=== PATIENT | male | born 1945 | race Two or more races ===

== ENCOUNTER 2019-10-30 08:32 | Inpatient (IN) | payer MEDICARE, MEDICAID ==
[2019-10-30] VITALS (16 sets, daily range): BP systolic 81–126; BP diastolic 58–82
[~2019-10-30] VITALS: Ht 182.9 cm; Wt 73.5 kg
[2019-10-30] MEDS ORDERED: Vancomycin 1.5 GM in NS 275 ML IVPB ONE (08:45)
[2019-10-30] MEDS ORDERED: Cefepime HCl 2 GM in NS 110 ML IV ONE (08:45)
[2019-10-30] MEDS ORDERED: ATIVAN1 MG ORAL (08:50)
[2019-10-30] MEDS ORDERED: DUONEB 0.5-3(2.53 ML HHN (08:50)
[2019-10-30] MEDS ORDERED: MIDODRINE HCL10 MG PEG (08:50)
[2019-10-30] MEDS ORDERED: QUETIAPINE FUM100 MG PEG (08:50)
[2019-10-30] MEDS ORDERED: AMIODARONE HCL400 M1 PEG (08:50)
[2019-10-30] MEDS ORDERED: THEOPHYLLI80 MG/151 PEG (08:50)
[2019-10-30] MEDS ORDERED: HUMALOG100 UNIT/4 SUBQ (08:50)
[2019-10-30] MEDS ORDERED: ATORVASTATIN CA20 MG PEG (08:50)
[2019-10-30] MEDS ORDERED: LEVOTHYROXINE75 MCG PEG (08:50)
[2019-10-30] MEDS ORDERED: ELIQUIS5 MG PO (08:50)
[2019-10-30] MEDS ORDERED: VITAMIN B-1100 MG PEG (08:51)
[2019-10-30] MEDS ORDERED: Lidocaine 1% MPF 10mg/ml 5ml ONE (09:31)
[2019-10-30] MEDS ORDERED: Lidocaine 1% MPF 10mg/ml 5ml IM ONE (09:45)
[2019-10-30 09:49] LABS: HEMATOCRIT 33.8 % (42.0-52.0); HEMOGLOBIN 10.8 G/DL (14.2-18.0); MEAN CORPUSCULAR VOLUME 86 FL (80-99); PLATELET COUNT 449 K/UL (150-450); RED BLOOD COUNT 3.91 M/UL (4.70-6.10); RED CELL DISTRIBUTION WIDTH 16.8 % (11.6-14.8)
[2019-10-30 09:53] LABS: ANION GAP 13 mmol/L (5-15); BLOOD UREA NITROGEN 25 mg/dL (7-18); CALCIUM 9.3 MG/DL (8.5-10.1); CARBON DIOXIDE 22 MMOL/L (21-32); CHLORIDE 103 MMOL/L (98-107); CREATININE 1.4 MG/DL (0.55-1.30); POTASSIUM 5.1 MMOL/L (3.5-5.1); SODIUM 137 MMOL/L (136-145)
--- NOTE | 2019-10-30 09:59 | Emergency Room Report ---
History of Present Illness General Chief Complaint: Dyspnea/Respdistress Source: EMS Present Illness HPI Patient is a 73-year-old male brought in by EMS after increased difficulty with respirations and possible hemoptysis. Patient previous history of head and neck cancer. He was noted to be full code per EMS. Patient had been having increased work of breathing as well as respiratory distress. Recently treated for strep pneumo pneumonia. He was noted to be markedly tachypneic and have increased work of breathing by paramedics and started on supplemental oxygen via nonrebreather. Patient was sent in from [facility]. Primary doctors Dr. Tyrese Hoff. History is limited by patient's mental status. Allergies: Coded Allergies: No Known Allergies (Unverified , 10/30/19) COVID-19 Screening Contact w/high risk pt: No Recent Travel to affected area: No Experienced COVID-19 symptoms?: Yes COVID-19 symptoms experienced: Shortness of Breath Patient History Past Medical History: see triage record Reviewed Nursing Documentation: PMH: Agreed; PSxH: Agreed Review of Systems All Other Systems: negative except mentioned in HPI Physical Exam Vital Signs Date Time Temp Pulse Resp B/P (MAP) Pulse Ox O2 Delivery O2 Flow Rate FiO2 10/30/19 08:24 96.6 140 30 92/53 (66 74 Non-Rebreather 15.0 Sp02 EP Interpretation: reviewed, normal General Appearance: normal inspection, lethargic, Chronically Ill Head: atraumatic ENT: normal ENT inspection, hearing grossly normal, normal voice Neck: normal inspection, supple, no bony tend, limited range of motion Respiratory: normal inspection, no retraction, respiratory distress, rhonchi Cardiovascular #1: no edema, tachycardia Gastrointestinal: normal inspection, normal bowel sounds, non tender, soft, no guarding, no hernia, other - gtube present Genitourinary: no CVA tenderness Musculoskeletal: normal inspection, back normal, normal range of motion Neurologic: motor weakness, responsive, speech normal, normal inspection Psychiatric: normal inspection, judgement/insight normal, mood/affect normal Procedures Critical Care Time Critical Care Time Patient had a critical medical condition which untreated could potentially result in life or limb threatening injury. Total critical care time excluding procedures approximately 45 minutes. Central Line Central Line : Consent: Emergent Central Line Lumen: triple Maximal Sterile Barrier Tech: yes cap, yes mask, yes sterile gown, yes sterile gloves, yes large sterile sheet, yes hand hygiene, yes chlorhexidine prep Central Line Postion: femoral (R) Anesthesia: Lidocaine Complications: Hematoma Central Line Post Position: sutured, good blood return Attempts: Other - 2 Patient Tolerated: Well Intubation Intubation : Time of Intubation: 09:15 Intubation Method: orotracheal Tube Size (cm): 7.5 Medications: Etomidate, Ketamine Breath Sounds after Intubation: equal Intubation Complications: no complications Post Intubation Xray: Yes Attempts: One Patient Tolerated: Well Complications: None Medical Decision Making Diagnostic Impression: Primary Impression: Septic shock Additional Impressions: Pneumonia Suspected 2019-nCoV infection Anticoagulant effect ER Course Patient presented for shortness of breath. Differential diagnosis include was not limited to pneumonia, pulmonary embolism, congestive heart failure, coronavirus, influenza among others. Because of complexity of patient's case laboratory tests and imaging studies were ordered. Patient's history suggest that he has some underlying history of cancer. He was noted to be full code. Patient had recent strep pneumo pneumonia. Laboratory testing did show positive for influenza. Patient started on IV fluids due to hypotension. He was intubated for respiratory distress. Full precautions were initiated due to current pandemic coronavirus. Patient was intubated with a glide scope and tolerated intubation well. Central venous catheter was placed emergently due to hypotension. Patient was noted to have initial right femoral arterial stick despite ultrasound guidance and direct pressure was held. Subsequently was able to place a right femoral central venous catheter in the femoral vein. Post procedure x-ray read by radiology showed adequate endotracheal tube placement as well as Port-A-Cath and bilateral interstitial infiltrates. Dr. Danny Stark was contacted for inpatient management Laboratory Tests Test 10/30/19 09:20 White Blood Count 41.8 K/UL (4.8-10.8) *H Red Blood Count 3.91 M/UL (4.70-6.10) L Hemoglobin 10.8 G/DL (14.2-18.0) L Hematocrit 33.8 % (42.0-52.0) L Mean Corpuscular Volume 86 FL (80-99) Mean Corpuscular Hemoglobin 27.5 PG (27.0-31.0) Mean Corpuscular Hemoglobin Concent 31.8 G/DL (32.0-36.0) L Red Cell Distribution Width 16.8 % (11.6-14.8) H Platelet Count 449 K/UL (150-450) Mean Platelet Volume 5.1 FL (6.5-10.1) L Neutrophils (%) (Auto) % (45.0-75.0) Lymphocytes (%) (Auto) % (20.0-45.0) Monocytes (%) (Auto) % (1.0-10.0) Eosinophils (%) (Auto) % (0.0-3.0) Basophils (%) (Auto) % (0.0-2.0) Neutrophils % (Manual) Pending Lymphocytes % (Manual) Pending Platelet Estimate Pending Platelet Morphology Pending Sodium Level 137 MMOL/L (136-145) Potassium Level 5.1 MMOL/L (3.5-5.1) Chloride Level 103 MMOL/L (98-107) Carbon Dioxide Level 22 MMOL/L (21-32) Anion Gap 13 mmol/L (5-15) Blood Urea Nitrogen 25 mg/dL (7-18) H Creatinine 1.4 MG/DL (0.55-1.30) H Estimated Glomerular Filtration Rate 49.7 mL/min (>60) Glucose Level 114 MG/DL (74-106) H Lactic Acid Level 4.50 mmol/L (0.4-2.0) H Calcium Level 9.3 MG/DL (8.5-10.1) Total Bilirubin Pending Aspartate Amino Transferase (AST) Pending Alanine Aminotransferase (ALT) Pending Alkaline Phosphatase Pending Total Creatine Kinase Pending Creatine Kinase MB Pending Troponin I 0.000 ng/mL (0.000-0.056) Pro-B-Type Natriuretic Peptide Pending Total Protein Pending Albumin Pending Globulin Pending Microbiology Date/Time Source Procedure Growth Status 10/30/19 08:45 Nasal Nares - Final Complete 10/30/19 08:45 Nasal Nares - Final Complete EKG Diagnostic Results Rate: tachycardiac Rhythm: NSR ST Segments: no acute changes Rhythm Strip Diag. Results EP Interpretation: yes Rhythm: no PVC's, no ectopy Last Vital Signs Date Time Temp Pulse Resp B/P (MAP) Pulse Ox O2 Delivery O2 Flow Rate FiO2 10/30/19 08:24 96.6 140 30 92/53 (66) 74 Non-Rebreather 15.0 Status: unchanged Disposition: ADMITTED INPATIENT Condition: Critical Referrals: NON PHYSICIAN (PCP) Cesar Rodriguez MD Oct 30, 2019 09:59
[2019-10-30 10:08] LABS: WHITE BLOOD COUNT 41.8 K/UL (4.8-10.8)
[2019-10-30 10:17] LABS: ALANINE AMINOTRANSFERASE 165 U/L (12-78); ALBUMIN 2.9 G/DL (3.4-5.0); ALBUMIN/GLOBULIN RATIO 0.6 (1.0-2.7); ALKALINE PHOSPHATASE 223 U/L (46-116); ASPARTATE AMINO TRANSFERASE 195 U/L (15-37); BILIRUBIN,TOTAL 0.4 MG/DL (0.2-1.0); CKMB 1.4 NG/ML (0.0-3.6); CREATINE KINASE 174 U/L (26-308)
--- NOTE | 2019-10-30 10:59 | NUR ---
ER Nurse Note: Pt brought in by ambulance from [facility] c/o increasing shortness of breath since AM. Per EMS, pt is 74% O2 at 15 L via non rebreather. Hx of stage 4 lung cancer. Pt arrived with G-tube. LAFD established LT IV; patent.
--- NOTE | 2019-10-30 11:05 | NUR ---
ER Nurse Note: Per ERMD, pt to be intubated. 0914- etomidate 20 given 15- intubated 7.5 cm at lip. Rt at bed side; vent setting AC 20, VT 400, Peep 5 0918- Chet 50 given 0935- central line placed; triple luman RT femoral. infusing 250cc TKO NS and Flagyl VS post intubation - 130HR, 86% O2 vent, 28RR, 120/81, 99.6F oral temp. Per RT; Peep increased to 10 d/t low O2.
[2019-10-30] MEDS ORDERED: Albuterol/Ipratropium 3ml neb HHN PRN (11:15)
[2019-10-30] MEDS ORDERED: Miralax 17gm pkt ORAL PRN (11:15)
[2019-10-30] MEDS ORDERED: Morphine Sulfate 4mg/ml Inj (IV USE ONLY) IVP PRN (11:15)
--- NOTE | 2019-10-30 11:15 | Diagnostic Imaging Report ---
Indication: Shortness of breath, status post intubation Technique: One view of the chest Comparison: None Findings: There is a right chest dual-lumen port catheter in place. There is an endotracheal tube in place, tip in good position projecting 3 cm above the annemarie. There is bilateral mostly nodular mostly interstitial disease. There may be some focal patchy airspace consolidations versus large nodules in the bilateral perihilar regions. The pleural spaces are clear. The heart size is normal. Impression: Satisfactory endotracheal intubation Bilateral mostly nodular mostly interstitial disease, as described. This could represent interstitial pneumonia or edema, among many other possibilities. However, given the nodular appearance and the presence of an infusion catheter the possibility of nodular metastatic disease should also be considered. Findings previously discussed by phone with Dr. Rodriguez in the emergency room
[2019-10-30 11:30] LABS: APPEARANCE,URINE CLOUDY; BILIRUBIN, URINE NEGATIVE (NEGATIVE); GLUCOSE, URINE (UA) NEGATIVE (NEGATIVE); KETONES,URINE 1+ (NEGATIVE); LEUKOCYTE ESTERASE ,URINE 1+ (NEGATIVE); NITRITE,URINE NEGATIVE (NEGATIVE); PH,URINE 5 (4.5-8.0); PROTEIN,URINE 3+ (NEGATIVE); UROBILINOGEN,URINE NORMAL MG/DL (0.0-1.0)
[2019-10-30 11:31] LABS: COLOR,URINE YELLOW
--- NOTE | 2019-10-30 11:40 | NUR ---
ER Nurse Note: Latic reflux drawn and sent to lab; awaiting results. All orders completed per ERMD orders. Covid, flu, MRSA, CRE swabs taken. Pt is + flu. Notifed ERMD of WBC and Lactic acid. Pt non verbal, slugglish bilateral pupil reaction. BP 91/66; ERMD ordered Levo and started at 1113 at 2mcg/min via central line. Pt is infusing NS and vanco. SKin intact; noted healing wound and scan on RT lower leg. Patel cath inserted, urine collected and sent. Isolation precautions continued. All safety measures met; will continue to montior.
--- NOTE | 2019-10-30 12:26 | NUR ---
ER Nurse Note: Pt remains at baseline; O2 at 88%. Pt continuing Levo with BP at 106/70. Pt calm, awake. All safety measures met; will continue to montior.
--- NOTE | 2019-10-30 13:38 | NUR ---
ER Nurse Note: Pt remains at baseline. Levo at 2mcg/min infusing via central line and NS at 250 cc/ hr. Pt toleraing vent; O2% 86-90%; ERMD aware. 30cc urine output via foely cath. All safety measures met; will continue to montior.
--- NOTE | 2019-10-30 13:40 | NUR ---
RESPIRATORY NOTE: Per Dr. Kaiser, keep current vent settings AC 20 400 100% PEEP +100. VENKAT Byrnes.
--- NOTE | 2019-10-30 13:51 | Consultation ---
History of Present Illness General Date patient seen: Oct 30, 2019 Chief Complaint: Dyspnea/Respdistress Present Illness HPI 73-year-old male with hx of Afib, hypothyroid, COPD, history of head and neck cancer, alf resident brought in by EMS with CC of difficulty with respirations and possible hemoptysis. Patient had been having increased work of breathing as well as respiratory distress. Recently treated for strep pneumo pneumonia. He was noted to be markedly tachypneic and have increased work of breathing by paramedics and started on supplemental oxygen via nonrebreather. He was in respiratory failure on arrival and was intubated and put on pressors because of hypotension. Allergies: Coded Allergies: No Known Allergies (Unverified , 10/30/19) Medication History Scheduled Apixaban (Eliquis), 5 MG PO Q12HR, (Reported) Atorvastatin Calcium* (Atorvastatin Calcium*), 10 MG PEG BEDTIME, (Reported) Levothyroxine Sodium* (Levothyroxine Sodium*), 50 MCG PEG DAILY, (Reported) Lorazepam* (Ativan*), 1 MG ORAL Q6HR, (Reported) Midodrine* (Proamatine*), 10 MG PEG THREE TIMES A DAY, (Reported) Quetiapine Fumarate* (Seroquel*), 100 MG PEG Q12HR, (Reported) Thiamine Hcl* (Vitamin B-1*), 100 MG PEG DAILY, (Reported) Scheduled PRN Amiodarone Hcl* (Amiodarone Hcl*), 200 MG PEG ONCE PRN for A-fib, (Reported) Miscellaneous Medications Insulin Lispro (Humalog), 0 SUBQ, (Reported) Ipratropium/Albuterol Sulfate (DuoNeb 0.5-3(2.5)mg/3ml), 3 ML HHN, (Reported) Theophylline Anhydrous (Theophylline), 200 MG PEG, (Reported) Patient History Healthcare decision maker Resuscitation status Advanced Directive on File Past Medical/Surgical History Past Medical/Surgical History: (1) COPD (chronic obstructive pulmonary disease) (2) Psychosis (3) Hypothyroidism (4) Atrial fibrillation Review of Systems All Other Systems: negative except mentioned in HPI Physical Exam General Appearance: WD/WN Lines, tubes and drains: peripheral HEENT: normocephalic, atraumatic Neck: non-tender, normal alignment Respiratory/Chest: chest wall non-tender, rhonchi - left, rhonchi - right Cardiovascular/Chest: normal peripheral pulses, normal rate Abdomen: normal bowel sounds, non tender Genitourinary/Rectal: normal genital exam Extremities: normal range of motion Skin Exam: normal pigmentation 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 grossly normal Last 24 Hour Vital Signs Date Time Temp Pulse Resp B/P (MAP) Pulse Ox O2 Delivery O2 Flow Rate FiO2 10/30/19 13:36 97.7 120 22 108/73 90 Mechanical Ventilator 15.0 100 10/30/19 13:15 120 20 100 10/30/19 12:25 124 20 106/70 88 Mechanical Ventilator 10/30/19 11:52 99.6 129 28 91/66 86 Mechanical Ventilator 15.0 100 10/30/19 11:13 10/30/19 10:45 128 21 100 10/30/19 10:30 96.6 129 20 121/80 98 Mechanical Ventilator 15.0 100 10/30/19 10:30 129 20 Mechanical Ventilator 15.0 100 10/30/19 09:16 129 20 100 10/30/19 09:16 129 20 98 Mechanical Ventilator 100 10/30/19 08:24 96.6 140 30 92/53 (66) 74 Non-Rebreather 15.0 Laboratory Tests Test 10/30/19 08:45 10/30/19 09:20 10/30/19 10:45 10/30/19 11:15 Arterial Blood pH 7.276 (7.350-7.450) Arterial Blood Partial Pressure CO2 41.7 mmHg (35.0-45.0) Arterial Blood Partial Pressure O2 65.9 mmHg (75.0-100.0) L Arterial Blood HCO3 19.0 mmol/L (22.0-26.0) L Arterial Blood Oxygen Saturation 89.3 % (95-100) *L Arterial Blood Base Excess -7.4 (-2-2) L Ty Test Positive White Blood Count 41.8 K/UL (4.8-10.8) *H Red Blood Count 3.91 M/UL (4.70-6.10) L Hemoglobin 10.8 G/DL (14.2-18.0) L Hematocrit 33.8 % (42.0-52.0) L Mean Corpuscular Volume 86 FL (80-99) Mean Corpuscular Hemoglobin 27.5 PG (27.0-31.0) Mean Corpuscular Hemoglobin Concent 31.8 G/DL (32.0-36.0) L Red Cell Distribution Width 16.8 % (11.6-14.8) H Platelet Count 449 K/UL (150-450) Mean Platelet Volume 5.1 FL (6.5-10.1) L Neutrophils (%) (Auto) % (45.0-75.0) Lymphocytes (%) (Auto) % (20.0-45.0) Monocytes (%) (Auto) % (1.0-10.0) Eosinophils (%) (Auto) % (0.0-3.0) Basophils (%) (Auto) % (0.0-2.0) Differential Total Cells Counted 100 Neutrophils % (Manual) 84 % (45-75) H Lymphocytes % (Manual) 3 % (20-45) L Monocytes % (Manual) 5 % (1-10) Eosinophils % (Manual) 0 % (0-3) Basophils % (Manual) 0 % (0-2) Band Neutrophils 8 % (0-8) Platelet Estimate Adequate Platelet Morphology Normal Hypochromasia 1+ Anisocytosis 1+ Sodium Level 137 MMOL/L (136-145) Potassium Level 5.1 MMOL/L (3.5-5.1) Chloride Level 103 MMOL/L (98-107) Carbon Dioxide Level 22 MMOL/L (21-32) Anion Gap 13 mmol/L (5-15) Blood Urea Nitrogen 25 mg/dL (7-18) H Creatinine 1.4 MG/DL (0.55-1.30) H Estimat Glomerular Filtration Rate 49.7 mL/min (>60) Glucose Level 114 MG/DL (74-106) H Lactic Acid Level 4.50 mmol/L (0.4-2.0) H 2.40 mmol/L (0.66-2.22) H Calcium Level 9.3 MG/DL (8.5-10.1) Total Bilirubin 0.4 MG/DL (0.2-1.0) Aspartate Amino Transf (AST/SGOT) 195 U/L (15-37) H Alanine Aminotransferase (ALT/SGPT) 165 U/L (12-78) H Alkaline Phosphatase 223 U/L (46-116) H Total Creatine Kinase 174 U/L (26-308) Creatine Kinase MB 1.4 NG/ML (0.0-3.6) Creatine Kinase MB Relative Index 0.8 Troponin I 0.000 ng/mL (0.000-0.056) Pro-B-Type Natriuretic Peptide 1761 pg/mL (0-125) H Total Protein 7.8 G/DL (6.4-8.2) Albumin 2.9 G/DL (3.4-5.0) L Globulin 4.9 g/dL Albumin/Globulin Ratio 0.6 (1.0-2.7) L Urine Color Yellow Urine Appearance Cloudy Urine pH 5 (4.5-8.0) Urine Specific [place] 1.025 (1.005-1.035) Urine Protein 3+ (NEGATIVE) H Urine Glucose (UA) Negative (NEGATIVE) Urine Ketones 1+ (NEGATIVE) H Urine Blood 4+ (NEGATIVE) H Urine Nitrite Negative (NEGATIVE) Urine Bilirubin Negative (NEGATIVE) Urine Urobilinogen Normal MG/DL (0.0-1.0) Urine Leukocyte Esterase 1+ (NEGATIVE) H Urine RBC 5-10 /HPF (0 - 0) H Urine WBC 10-15 /HPF (0 - 0) H Urine Squamous Epithelial Cells Moderate /LPF (NONE/OCC) H Urine Amorphous Sediment Moderate /LPF (NONE) H Urine Bacteria Moderate /HPF (NONE) H Microbiology Date/Time Source Procedure Growth Status 10/30/19 08:45 Nasal Nares - Final Complete 10/30/19 08:45 Nasal Nares - Final Complete Height (Feet): 6 Height (Inches): 1.00 Weight (Pounds): 180 Medications Current Medications Medications (Trade) Dose Ordered Sig/Tasha Route PRN Reason Start Time Stop Time Status Last Admin Dose Admin Acetaminophen (Tylenol) 650 mg Q4H PRN ORAL fever 10/30/19 11:15 11/29/19 11:14 Albuterol/ Ipratropium (Albuterol/ Ipratropium) 3 ml Q4H PRN HHN Shortness of Breath 10/30/19 11:15 11/04/19 11:14 Amikacin Sulfate / Sodium Chloride 110 ml @ 110 mls/hr Q24H IV 10/30/19 23:45 11/06/19 23:44 UNV Amiodarone HCl (Cordarone) 200 mg DAILY PEG 10/31/19 09:00 01/29/20 08:59 UNV Ertapenem 1 gm/ Sodium Chloride 55 ml @ 110 mls/hr Q24H IV 10/30/19 23:45 11/04/19 23:44 UNV Heparin Sodium (Porcine) (Heparin 5000 units/ml) 5,000 units EVERY 12 HOURS SUBQ 10/30/19 21:00 12/14/19 20:59 UNV Levothyroxine Sodium (Synthroid) 50 mcg DAILY GT 10/31/19 09:00 11/30/19 08:59 UNV Lorazepam (Ativan 2mg/ml 1ml) 2 mg Q2H PRN IV For Anxiety 10/30/19 11:15 11/06/19 11:14 Morphine Sulfate (Morphine Sulfate) 4 mg Q4H PRN IVP Severe Pain (Pain Scale 7-10) 10/30/19 11:15 11/06/19 11:14 Norepinephrine Bitartrate 4 mg/ Dextrose 254 ml @ 0 mls/hr Q24H IV 10/30/19 11:15 11/29/19 11:14 UNV Ondansetron HCl (Zofran) 4 mg Q6H PRN IVP Nausea & Vomiting 10/30/19 11:15 11/29/19 11:14 Pantoprazole (Protonix) 40 mg DAILY IVP 10/31/19 09:00 11/30/19 08:59 UNV Polyethylene Glycol (Miralax) 17 gm DAILYPRN PRN ORAL Constipation 10/30/19 11:15 11/29/19 11:14 Quetiapine Fumarate (SEROqueL) 100 mg Q12HR GT 10/30/19 21:00 12/14/19 20:59 UNV Sodium Chloride 1,000 ml @ 100 mls/hr Q10H IVLG 10/30/19 11:10 11/29/19 11:09 Vancomycin HCl 1 gm/Dextrose 275 ml @ 183.3 mls/ hr Q24H IV 10/30/19 23:45 11/04/19 23:44 UNV Assessment/Plan Problem List: (1) Septic shock ICD Codes: A41.9 - Sepsis, unspecified organism; R65.21 - Severe sepsis with septic shock SNOMED: 98717157 (2) Suspected 2019-nCoV infection ICD Codes: R68.89 - Other general symptoms and signs SNOMED: 799352788 (3) COPD (chronic obstructive pulmonary disease) ICD Codes: J44.9 - Chronic obstructive pulmonary disease, unspecified SNOMED: 65800679 (4) Atrial fibrillation ICD Codes: I48.91 - Unspecified atrial fibrillation SNOMED: 61884060 (5) Hypothyroidism ICD Codes: E03.9 - Hypothyroidism, unspecified SNOMED: 54496018 (6) Psychosis ICD Codes: F29 - Unspecified psychosis not due to a substance or known physiological condition SNOMED: 66885666 Respiratory: monitor respiratory rate, adjust FIO2, CXR Cardiac: continue pressors, continue to monitor HR/BP Renal: F/U I&O, keep IV fluid, check electrolytes Infectious Disease: check cultures Gastrointestinal: continue feedings/current rate Endocrine: monitor blood sugar Hematologic: monitor H/H, transfuse if hgb<8.5 Neurologic: PRN Ativan, PRN Morphine, keep patient comfortable Affect: PRN ativan Disposition: keep in ICU Time Spent (Minutes): 40 Notes Reviewed: business affairs manager, cardio, renal, ID Jackie Kaiser MD Oct 30, 2019 13:51
--- NOTE | 2019-10-30 14:30 | NUR ---
ER Nurse Note: Urine output at 175cc since applied. No changes since admission. Will continue to montior.
--- NOTE | 2019-10-30 15:30 | NUR ---
ER Nurse Note: BP at 106/71 with levo at 2mcg/min. No signs of acute distress. Pt on vent, tolerating well. All orders completed per ERMD orders.
--- NOTE | 2019-10-30 16:40 | NUR ---
ER Nurse Note: Pt VSS with levo at 2mcg/minl tolerating well with interventions. All orders completed. All safety measures met; will continue to montior.
--- NOTE | 2019-10-30 17:20 | NUR ---
ER Nurse Note: Pt VSS with levo at 2mcg/min; non verbal d/t ETT. No suction required at this time. Foely intact, minimal urine output. No BM. All safety measures met; will continue to montior.
--- NOTE | 2019-10-30 18:06 | NUR ---
ER Nurse Note: Pt VSS with levo at 2mcg/min. Pt tolerating well; chest rise and fall noted with vent. Pt calm, no signs of diistress. All safety measures met; will continue to montior.
--- NOTE | 2019-10-30 19:19 | NUR ---
ER Nurse Note: Pt remains sinus tachy; VSS otherwise. Pt tolerating vent, O2 98%, no changes in setting. Levo infusing via central cath. SLIV bilateral extremities. Patel care patent. All orders completed; will endorse to oncoming shift for contintuiy of care.
--- NOTE | 2019-10-30 19:30 | NUR ---
ED Nurse Note: Patient resting comfortably, vital signs stable. Will continue to monitor.
--- NOTE | 2019-10-30 20:35 | NUR ---
ED Nurse Note: Patient tolerated IV antibiotics and additional fluids mitigated tachycardia from 114 to 104. Will continue to monitor patient for admission. Environment cleaned and sanitized.
--- NOTE | 2019-10-30 21:30 | NUR ---
ED Nurse Note: Patient is cooperative, able to open eyes spontaneously and is holding steady MAP on 2 noni of Levo. Patient is not fighting vent. ERMD and CN consulted regarding need for drips.
--- NOTE | 2019-10-30 21:37 | NUR ---
ED Nurse Note: Report called in to Ursula ROBLEDO prior to transport to ICU. RT consulted for transport as well.
--- NOTE | 2019-10-30 22:00 | NUR ---
ED Nurse Note: Patient transported to floor without incident by cardiovascular technologist and CN.
--- NOTE | 2019-10-30 22:30 | NUR ---
NURSE NOTES: Received report from VENKAT Chambers at 1289. patient arrived to ICU 2229. patient asleep, withdraws to pain, nonverbal with 7.5 ETT at 23cm lipline. Ventilator AC16 TV 600 FiO2 100%. respirations even with diminished lung sounds and oxygen saturation 100%. left hand PIV gauge 20 and right hand PIV gauge 22 clean and asymptomatic. right femoral TLC running levophed at 2mcg/min, held at this time. Patient kept NPO with gtube clamped, dressing clean dry intact with no residual noted. abdomen soft round nontender with hypoactive bowel sounds x4 quadrants. skin cool dry and intact with lumps noted on the upper right chest/axillary. logan catheter draining light faheem urine. Dr. Kaiser aware of patient abnormal lab values and vital signs, orders received read back and carried out. will continue to monitor.
[2019-10-30] MEDS: Amikacin 1,000 MG in NS 110 ML IV SCH (23:00)
--- NOTE | 2019-10-30 23:00 | NUR ---
NURSE NOTES: patient restless, confused and nonverbal on ventilator. respirations shallow and tachypnic with small amount of thick white secretions obtained. BP 92/58, HR 95, afebrile. Levophed resumed from ER at 2mcg/min through the right femoral TLC to maintain SBP>90. logan catheter draining yellow urine. gtube clamped. patient repositioned and oral care provided. will continue to monitor. bed locked lowest position call light within reach.
[2019-10-30] MEDS: Ertapenem 1 GM in NS 55 ML IV SCH (23:42)
[2019-10-30] MEDS ORDERED: Vancomycin 1 GM in D5W 275 ML IV SCH (23:45)
[2019-10-30] MEDS: LORazepam Inj 2mg/ml 1ml IV PRN (23:47)
[2019-10-31] VITALS (64 sets, daily range): BP systolic 74–118; BP diastolic 48–66
--- NOTE | 2019-10-31 | NUR ---
NURSE NOTES: patient asleep, lethargic, withdraws to pain. BP 88/58, HR 89. levophed increased from 2mcg/min to 4mcg/min to keep SBP>90 through the right femoral TLC. logan catheter draining yellow urine. patient repositioned and oral care provided. will continue to monitor.
[2019-10-31] MEDS: Heparin 5000 units/ml inj SUBQ SCH ×3 (00:40→21:00)
[2019-10-31] MEDS ORDERED: Vancomycin 500mg/D5W 110ml IVPB ONE ×2 (01:00)
--- NOTE | 2019-10-31 01:00 | NUR ---
NURSE NOTES: Patient asleep, lethargic, withdraws to pain. respirations even and unlabored on ventilator. BP74/51, HR87. levophed increased from 4mcg/min to 6mcg/min through the right femoral TLC. gtube clamped and logan catheter draining to gravity. will continue to monitor.
--- NOTE | 2019-10-31 03:00 | NUR ---
NURSE NOTES: patient asleep lethargic, withdraws to pain. patient tolerating ventilator, oxygen saturation 100%. BP 88/55, HR 93, T98.1F axillary. levophed increased from 8mcg/min to 10mcg/min through the right femoral TLC, clean and asymptomatic. logan catheter draining light faheem urine. will continue to monitor.
--- NOTE | 2019-10-31 04:00 | NUR ---
NURSE NOTES: patient asleep withdraws to pain. BP 95/59, HR92, Temp 98.1F axillary. levophed maintained at 10mcg/min via right femoral TLC. logan catheter draining light faheem urine. gtube dressing clean dry and clamped. patient given bed bath and oral care provided. will continue to monitor. bed locked lowest position call light within reach.
[2019-10-31] MEDS ORDERED: Levophed 4mg/4mL Inj IV ONE (04:35)
[2019-10-31 05:38] LABS: HEMOGLOBIN 8.6 G/DL (14.2-18.0); MEAN CORPUSCULAR VOLUME 88 FL (80-99); PLATELET COUNT 269 K/UL (150-450); RED BLOOD COUNT 3.09 M/UL (4.70-6.10); RED CELL DISTRIBUTION WIDTH 16.8 % (11.6-14.8)
[2019-10-31 05:57] LABS: WHITE BLOOD COUNT 23.8 K/UL (4.8-10.8)
[2019-10-31 05:58] LABS: ALANINE AMINOTRANSFERASE 116 U/L (12-78); ALBUMIN/GLOBULIN RATIO 0.5 (1.0-2.7); ALKALINE PHOSPHATASE 127 U/L (46-116); ANION GAP 10 mmol/L (5-15); ASPARTATE AMINO TRANSFERASE 114 U/L (15-37); BILIRUBIN,TOTAL 0.3 MG/DL (0.2-1.0); BLOOD UREA NITROGEN 21 mg/dL (7-18); CARBON DIOXIDE 22 MMOL/L (21-32); CHLORIDE 109 MMOL/L (98-107); CREATININE 1.2 MG/DL (0.55-1.30); POTASSIUM 4.4 MMOL/L (3.5-5.1); SODIUM 141 MMOL/L (136-145)
--- NOTE | 2019-10-31 06:00 | NUR ---
NURSE NOTES: patient asleep lethargic withdraws to pain. patient tolerating ventilator AC16 TV600 FIO2 100% O2 100%. right hand gauge 22 and left gauge 20 hand PIV clean dry patent. right femoral TLC running levophed 10mcg/min clean and asymptomatic. GTube dressing clean dry and clamped. logan catheter draining to gravity. skin warm dry intact. will continue to monitor. bed locked lowest position call light within reach.
[2019-10-31 06:04] LABS: BILIRUBIN,DIRECT < 0.1 MG/DL (0.0-0.3)
--- NOTE | 2019-10-31 07:23 | NUR ---
HAND-OFF: Report given to VENKAT Barton.
--- NOTE | 2019-10-31 08:30 | NUR ---
NURSE NOTES: Patient assessed at the bedside, patient is unable to follow commands at this time. patient is on mechanical ventilator with setting of AC 16, TV:600, FIO2: 100% with saturations ranging from 94-97%, patient has red specks noted from ET0-tube while providing suction. patient is on restraint for attempting to pull on et-tube, hands are pink with peripheral pulses present. will follow orders placed for vancomycin and amikacin.
[2019-10-31] MEDS: Amiodarone 200mg tab PEG SCH (09:00)
[2019-10-31] MEDS: Pantoprazole Inj IVP SCH (10:20)
--- NOTE | 2019-10-31 10:21 | Pulmonolgy Critical Care Note ---
Critical Care - Asmt/Plan Problems: (1) Nosocomial pneumonia (2) Septic shock (3) COPD (chronic obstructive pulmonary disease) (4) Psychosis (5) Hypothyroidism (6) Atrial fibrillation (7) Suspected 2019-nCoV infection Respiratory: monitor respiratory rate, adjust FIO2, CXR Cardiac: continue to monitor HR/BP Renal: F/U I&O, check electrolytes, other - on D5NS at 100 cc/hour Infectious Disease: check cultures Gastrointestinal: hold feedings Endocrine: monitor blood sugar, continue sliding scale insulin Hematologic: monitor H/H, transfuse if hgb<8.5 Neurologic: PRN Ativan, keep patient comfortable Affect: PRN ativan Time Spent (Minutes): 40 Notes 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: 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, 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 Discussed with: nurses, consultants, case loader operatorpoker manager - Objective Last 24 Hour Vital Signs Date Time Temp Pulse Resp B/P (MAP) Pulse Ox O2 Delivery O2 Flow Rate FiO2 10/31/19 09:00 99 26 98/55 (69) 99 10/31/19 08:30 100 27 101/57 (72) 99 10/31/19 08:00 100 10/31/19 08:00 90 10/31/19 08:00 98.0 97 23 89/56 (67) 99 10/31/19 07:30 97 23 89/56 (67) 99 10/31/19 07:00 95 23 94/54 (67) 99 10/31/19 06:45 96 23 97/55 (69) 99 10/31/19 06:30 69 15 10/31/19 06:30 95 23 91/63 (72) 99 10/31/19 06:15 95 23 103/52 (69) 99 10/31/19 06:00 95 23 100/54 (69) 99 10/31/19 06:00 100/54 10/31/19 05:45 94 22 89/57 (68) 99 10/31/19 05:44 99/56 10/31/19 05:30 94 24 99/56 (70) 99 10/31/19 05:19 108 20 100 10/31/19 05:15 94 24 98/60 (73) 99 10/31/19 05:00 93/57 10/31/19 05:00 93 24 93/57 (69) 99 10/31/19 04:45 94 25 89/61 (70) 99 10/31/19 04:30 93 24 99/56 (70) 99 10/31/19 04:15 93 24 95/58 (70) 100 10/31/19 04:00 100 10/31/19 04:00 98.1 92 25 95/59 (71) 100 10/31/19 04:00 95/59 10/31/19 04:00 92 10/31/19 04:00 Mechanical Ventilator 10/31/19 03:45 91 25 97/59 (72) 100 10/31/19 03:30 90 24 93/58 (70) 100 10/31/19 03:17 111 22 100 10/31/19 03:15 93 24 88/58 (68) 100 10/31/19 03:00 93 25 88/55 (66) 100 10/31/19 03:00 88/55 10/31/19 02:45 93 24 96/55 (69) 100 10/31/19 02:30 92 24 94/53 (67) 100 10/31/19 02:15 91 24 86/59 (68) 100 10/31/19 02:00 95/57 10/31/19 02:00 90 24 95/57 (70) 100 10/31/19 01:52 87/57 10/31/19 01:52 87/57 10/31/19 01:45 88 25 85/66 (72) 99 10/31/19 01:30 91 24 83/57 (66) 100 10/31/19 01:15 112 20 100 10/31/19 01:15 88 25 84/53 (63) 100 10/31/19 01:05 87 25 74/51 (59) 99 10/31/19 01:00 87 24 74/50 (58) 99 10/31/19 01:00 74/51 10/31/19 00:45 89 24 84/56 (65) 99 10/31/19 00:30 88 23 91/61 (71) 100 10/31/19 00:15 88 23 88/58 (68) 100 10/31/19 00:00 98.0 89 25 87/61 (70) 100 10/31/19 00:00 100 10/31/19 00:00 87/61 10/31/19 00:00 Mechanical Ventilator 10/31/19 00:00 89 10/30/19 23:45 93 24 90/59 (69) 99 10/30/19 23:30 96/64 10/30/19 23:30 94 26 81/62 (68) 99 10/30/19 23:15 96 26 92/58 (69) 99 10/30/19 23:10 110 22 100 10/30/19 23:00 97 26 82/60 (67) 99 10/30/19 23:00 82/60 10/30/19 22:45 104 36 120/64 (82) 99 10/30/19 22:30 97.9 103 36 126/66 (86) 10/30/19 22:30 112 10/30/19 22:00 97.7 106 22 120/64 99 Endotracheal Tube 15.0 100 10/30/19 22:00 Mechanical Ventilator 10/30/19 22:00 106/78 10/30/19 22:00 120/64 10/30/19 21:04 118 24 100 10/30/19 19:18 97.7 115 28 106/78 98 Mechanical Ventilator 15.0 100 10/30/19 19:01 116 20 100 10/30/19 18:06 97.2 116 33 108/82 98 Mechanical Ventilator 15.0 100 10/30/19 17:22 102 21 100 10/30/19 17:20 118 32 102/78 96 Mechanical Ventilator 15.0 100 10/30/19 16:40 106 34 98/64 99 Mechanical Ventilator 15.0 100 10/30/19 15:30 104 30 106/71 99 Mechanical Ventilator 15.0 100 10/30/19 15:02 100 22 100 10/30/19 14:30 122 34 99/71 93 Mechanical Ventilator 15.0 100 10/30/19 13:36 97.7 120 22 108/73 90 Mechanical Ventilator 15.0 100 10/30/19 13:15 120 20 100 10/30/19 12:25 124 20 106/70 88 Mechanical Ventilator 10/30/19 12:13 102/72 10/30/19 11:57 91/66 10/30/19 11:52 99.6 129 28 91/66 86 Mechanical Ventilator 15.0 100 10/30/19 11:43 102/66 10/30/19 11:27 98/68 10/30/19 11:13 91/66 10/30/19 10:45 128 21 100 10/30/19 10:30 96.6 129 20 121/80 98 Mechanical Ventilator 15.0 100 10/30/19 10:30 129 20 Mechanical Ventilator 15.0 100 Status: sedated Condition: critical HEENT: atraumatic Neck: full ROM Lungs: rales, rhonchi Heart: HR/BP stable Abdomen: soft Extremities: no C/C/E Micro: Microbiology Date/Time Source Procedure Growth Status 10/30/19 08:45 Nasal Nares - Final Complete 10/30/19 08:45 Nasal Nares - Final Complete 10/30/19 10:45 Urine,Clean Catch Urine Culture - Preliminary NO GROWTH Resulted Critical Care - Subjective ROS Limited/Unobtainable: Yes Condition: critical EKG Rhythm: Sinus Rhythm FI02: 90 Vent Support Breath Rate: 16 Vent Support Mode: AC Vent Tidal Volume: 600 Sputum Amount: Moderate PEEP: 10.0 PIP: 20 I&O: Intake and Output 10/30/19 10/31/19 19:00 07:00 Intake Total 475 ml 2861.85 ml Output Total 570 ml Balance 475 ml 2291.85 ml Intake IV Total 475 ml 2861.85 ml Output Urine Total 570 ml CXR: bilateral interstitial infiltrate ET-Tube: 7.5 ET Position: 23 Labs: Laboratory Tests Test 10/30/19 10:45 10/30/19 11:15 10/31/19 04:00 Urine Color Yellow Urine Appearance Cloudy Urine pH 5 (4.5-8.0) Urine Specific [place] 1.025 (1.005-1.035) Urine Protein 3+ (NEGATIVE) H Urine Glucose (UA) Negative (NEGATIVE) Urine Ketones 1+ (NEGATIVE) H Urine Blood 4+ (NEGATIVE) H Urine Nitrite Negative (NEGATIVE) Urine Bilirubin Negative (NEGATIVE) Urine Urobilinogen Normal MG/DL (0.0-1.0) Urine Leukocyte Esterase 1+ (NEGATIVE) H Urine RBC 5-10 /HPF (0 - 0) H Urine WBC 10-15 /HPF (0 - 0) H Urine Squamous Epithelial Cells Moderate /LPF (NONE/OCC) H Urine Amorphous Sediment Moderate /LPF (NONE) H Urine Bacteria Moderate /HPF (NONE) H Lactic Acid Level 2.40 mmol/L (0.66-2.22) H 1.70 mmol/L (0.4-2.0) White Blood Count 23.8 K/UL (4.8-10.8) *H Red Blood Count 3.09 M/UL (4.70-6.10) L Hemoglobin 8.6 G/DL (14.2-18.0) L Hematocrit 27.0 % (42.0-52.0) L Mean Corpuscular Volume 88 FL (80-99) Mean Corpuscular Hemoglobin 28.0 PG (27.0-31.0) Mean Corpuscular Hemoglobin Concent 31.9 G/DL (32.0-36.0) L Red Cell Distribution Width 16.8 % (11.6-14.8) H Platelet Count 269 K/UL (150-450) Mean Platelet Volume 5.1 FL (6.5-10.1) L Neutrophils (%) (Auto) % (45.0-75.0) Lymphocytes (%) (Auto) % (20.0-45.0) Monocytes (%) (Auto) % (1.0-10.0) Eosinophils (%) (Auto) % (0.0-3.0) Basophils (%) (Auto) % (0.0-2.0) Differential Total Cells Counted 100 Neutrophils % (Manual) 81 % (45-75) H Lymphocytes % (Manual) 12 % (20-45) L Monocytes % (Manual) 1 % (1-10) Eosinophils % (Manual) 0 % (0-3) Basophils % (Manual) 0 % (0-2) Band Neutrophils 6 % (0-8) Platelet Estimate Adequate Platelet Morphology Normal Hypochromasia 2+ Anisocytosis 1+ Sodium Level 141 MMOL/L (136-145) Potassium Level 4.4 MMOL/L (3.5-5.1) Chloride Level 109 MMOL/L (98-107) H Carbon Dioxide Level 22 MMOL/L (21-32) Anion Gap 10 mmol/L (5-15) Blood Urea Nitrogen 21 mg/dL (7-18) H Creatinine 1.2 MG/DL (0.55-1.30) Estimat Glomerular Filtration Rate 59.3 mL/min (>60) Glucose Level 109 MG/DL (74-106) H Calcium Level 8.0 MG/DL (8.5-10.1) L Total Bilirubin 0.3 MG/DL (0.2-1.0) Direct Bilirubin < 0.1 MG/DL (0.0-0.3) Aspartate Amino Transf (AST/SGOT) 114 U/L (15-37) H Alanine Aminotransferase (ALT/SGPT) 116 U/L (12-78) H Alkaline Phosphatase 127 U/L (46-116) H Total Protein 5.8 G/DL (6.4-8.2) L Albumin 2.0 G/DL (3.4-5.0) L Globulin 3.8 g/dL Albumin/Globulin Ratio 0.5 (1.0-2.7) L Jackie Kaiser MD Oct 31, 2019 10:21
--- NOTE | 2019-10-31 10:23 | NUR ---
RD ASSESSMENT & RECOMMENDATIONS SEE CARE ACTIVITY FOR COMPLETE ASSESSMENT DAILY ESTIMATED NEEDS: Needs based on CRITICAL CARE/ 66kg 22-28 kcals/kg 2692-2027 total kcals 1.2-2 g protein/kg 79-132 g total protein 25-30 mL/kg 7020-5511 total fluid mLs NUTRITION DIAGNOSIS: Swallowing difficulty R/T dysphagia as evidenced by PEG dep, currently NPO, s/p oral intubation, on pressor support. CURRENT TF:NPO ENTERAL NUTRITION RECOMMENDATIONS: Glucerna 1.2 @ 60ml/hr x 22 hrs (hold 1 hr before and after Synthroid) to provide 1320ml, 1584kcal, 79g prot, 1063ml free water * WITH HEMODYNAMIC STABILITY, initiate Glucerna 1.2 @ 20ml/hr x 6 hrs, advance 10ml q 4-6 hrs as tolerated to goal rate * HOB over 30 degrees * Without IVF, water flush of 150ml q 6 hrs * Hold 1 hr before and after Synthroid med. ADDITIONAL RECOMMENDATIONS: * Per SNF: HT=66" OA=229# (as of 10/18) -> rec calibrated bedscale wt * Monitor hemodynamic stability, ability to feed * Monitor for hypoglycemia while NPO: consider D5 vs NS (h/o DM) Addendum: 10/31/19 at [address] WITHOUT HEMODYNAMIC STABILITY: rec trophic feeding of Glucerna 1.2 @ 10ml/hr
--- NOTE | 2019-10-31 10:31 | Consultation ---
Consult Note Consult Note HPI: 73yo gentleman with PMH below presents from [facility] for SOB and hemotpysis. Pt was intubated in the ED. On pressors. ID consulted for septic shock. ROS: per above PMH/PSH: Afib COPD Hypothyroid Dyslipidemia HTN DM Anemia CVA G tube head and neck cancer Meds: reviewed NKDA SHx: lives at care home. h/o smoking. FHX: noncontributory VS: reviewed PE Gen: NAD. intubated. sedated HEENT: ETT. CV: S1+S2. tachycardic. no rubs or gallop Resp: coarse. regular. equal chest rise. Abd: soft. G tube. nondistended. Ext: no LE edema. pulse 2+. Skin: warm. dry. Neuro: sedated Labs: reviewed Imaging: reviewed Assessment: Afebrile Leukocytosis, neutrophil predominant Septic shock PNA Influenza A Probable superimposed bacterial PNA Suspected COVID coinfection CXR: Bilateral mostly nodular mostly interstitial disease, as described. This could represent interstitial pneumonia or edema, among many other possibilities. However, given the nodular appearance and the presence of an infusion catheter the possibility of nodular metastatic disease should also be considered. Possible UTI UA 10-15 WBC r/o bacteremia BCx: P QTc 552 Afib COPD Hypothyroid Dyslipidemia HTN DM Anemia CVA G tube, h/o abscess complication head and neck cancer Plan: ertapenem, amikacin, vanc #1. Tamiflu #1. monitor temp and CBC monitor resp status continue isolation--contact, droplet, airborne f/u bcx f/u UCx f/u sputum cx f/u MRSA screen f/u COVID WENDI RN Thank you for this consult. [facility] Will continue to follow the patient with you. Yifan Rivera MD Oct 31, 2019 10:31
--- NOTE | 2019-10-31 10:44 | NUR ---
RADIOLOGY DEPT., CHEST X-RAY DONE.-P.DYE
--- NOTE | 2019-10-31 10:45 | NUR ---
NURSE NOTES: Patient repositioned and suctioned through ET-tube, G-tube is patent and flushes with no resistance, AM medication amiodarone held due to patient on Levophed along with heparin subq for patient having red speck while suctioning through ET-tube. Dr. Kaiser made aware of medication held.
--- NOTE | 2019-10-31 10:49 | NUR ---
MEDICAL MICROBIOLOGIST NOTE Pt was admitted to ICU on 10/30/2019. Pt is on vent. SAM spoke w/ pt's son, Yasir Bhatia [phone] and obtained information. Pt is and has 4 adult children, 3 residing in [place]. Yasir Bhatia is the primary contact of person and the decision maker as pt's Joshua Cooley does not have a contact number. Per Yasir, pt has been residing at [facility] for 3 months. Pt was living w/ his prior to his admission at [facility]. Pt's son wants to take pt back home upon DC. PEr Yasir, pt's can offer assistance 24 hours. SAM will relay this information to assigned CM to discuss the accommodation. Addendum: 10/31/19 at 1142 by VITALIY VARGAS Pt's son Yasir Bhatia confirmed full code for pt.
--- NOTE | 2019-10-31 13:15 | NUR ---
NURSE NOTES: Patient placed on p200 over lay mattress for preventative measures. Tube feeding started at 10ml/hr through G-tube. formula of Jevity 1.2 started. patient has no residual noted with tube flushing and patient. Chemistry labs drawn and sent to laboratory for analysis.
[2019-10-31 13:37] LABS: LACTATE DEHYDROGENASE 243 U/L (81-234)
[2019-10-31 13:38] LABS: % IRON SATURATION 3 % (15-50); IRON 6 ug/dL (50-175); TOTAL IRON BINDING CAPACITY 187 ug/dL (250-450)
[2019-10-31 14:10] LABS: INR 3.9 (0.9-1.1)
--- NOTE | 2019-10-31 14:30 | NUR ---
CASE MANAGEMENT: INITIAL REVIEW 73 YO M ZAY FROM [facility] CONV CC: DYSPNEA PMHx: Afib, hypothyroid, COPD SI:RESP FAILURE. PNA. FLU A (+) T 96.6 HR 140 RR 30 b/p 92/53 SATS 74% ON 15L/NRB LABS: WBC 41.8 BUN 25 CR 1.4 GLU 114 LACTIC ACID 4.5 AST 195 ALT 165 ALP 223 BNP 1761 ABGs PH 7.276 PO2 65.9 HCO3 19 O2 SAT 89.3 BE -7.4 IS: VANCO IV X1 CEFEPIME IV X1 FLAGYL IV X1 LIDOCAINE IM X1 CXR Impression: Satisfactory endotracheal intubation PATIENT ADMITTED TO ICU 10/30/2019 @ 1025 DCP: [facility] V. HOME PLAN OF CARE: CENTRAL LINE INSERTION continue isolation--contact, droplet, airborne COVID TESTING Addendum: 10/31/19 at 1441 by Sydni Merino CM INTERQUAL MET
--- NOTE | 2019-10-31 14:41 | NUR ---
CASE MANAGEMENT: NOTE SSW NOTE NOTED. FAMILY WOULD LIKE TO TAKE PATIENT HOME ON DC. PATIENT IS CURRENTLY ORALLY INTUBATED. ASSIGNED CM TO CONTINUE DC PLANNING. CXR Impression: Satisfactory endotracheal intubation
--- NOTE | 2019-10-31 16:22 | Diagnostic Imaging Report ---
Indication: Dyspnea Comparison: 10/30/2019 A single view chest radiograph was obtained. Findings: Patchy interstitial and airspace disease demonstrated bilaterally without significant change. Chest port on noted on the right. Endotracheal tube is stable and unchanged. Heart size is enlarged but stable. 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
--- NOTE | 2019-10-31 16:45 | NUR ---
NURSE NOTES: Dr. Gresham updated on the patient heart rate and remain on Levophed at 10mcg/min at rate of 38.1ml/hr. mo verbal orders given at this time.
[2019-10-31] MEDS: Vancomycin 500mg/D5W 110ml IVPB SCH ×2 (17:24)
--- NOTE | 2019-10-31 17:31 | Cardiology Progress Note ---
Assessment/Plan Assessment/Plan [id number] repeat trop ekg sinus tachy rbb nothing to suggest acs echo once covid 19 is excluded overall prognosis poor with all the different comorbidities Objective Last 24 Hour Vital Signs Date Time Temp Pulse Resp B/P (MAP) Pulse Ox O2 Delivery O2 Flow Rate FiO2 10/31/19 17:24 90/51 10/31/19 17:00 105 21 83/51 (62) 100 10/31/19 16:31 103 25 100 10/31/19 16:30 101 22 111/56 (74) 100 10/31/19 16:00 104 10/31/19 16:00 100 21 92/52 (65) 100 10/31/19 15:30 98 20 91/52 (65) 100 10/31/19 15:00 94 21 109/58 (75) 100 10/31/19 15:00 94 24 100 10/31/19 14:30 98 20 94/52 (66) 99 10/31/19 14:00 100 21 90/54 (66) 88 10/31/19 14:00 90/54 10/31/19 13:30 102 22 94/55 (68) 99 10/31/19 13:00 99/56 10/31/19 13:00 105 23 99/56 (70) 99 10/31/19 12:30 101 22 92/52 (65) 100 10/31/19 12:00 106 23 94/52 (66) 100 10/31/19 12:00 Mechanical Ventilator 10/31/19 12:00 90 10/31/19 12:00 94/52 10/31/19 12:00 96 10/31/19 11:30 98.9 107 26 83/53 (63) 100 10/31/19 11:12 101 28 100 10/31/19 11:00 102 26 102/56 (71) 100 10/31/19 11:00 83/53 10/31/19 10:30 95 25 105/55 (72) 100 10/31/19 10:18 103/52 10/31/19 10:00 100/52 10/31/19 10:00 98 25 100/52 (68) 100 10/31/19 09:30 100 25 98/56 (70) 100 10/31/19 09:22 99 27 100 10/31/19 09:00 99 26 98/55 (69) 99 10/31/19 09:00 95/55 10/31/19 08:30 100 27 101/57 (72) 99 10/31/19 08:00 100 10/31/19 08:00 90 10/31/19 08:00 98.0 97 23 89/56 (67) 99 10/31/19 08:00 89/56 10/31/19 08:00 Mechanical Ventilator 10/31/19 07:30 97 23 89/56 (67) 99 10/31/19 07:00 95 23 94/54 (67) 99 10/31/19 07:00 94/54 10/31/19 06:58 95 25 100 10/31/19 06:45 96 23 97/55 (69) 99 10/31/19 06:30 69 15 10/31/19 06:30 95 23 91/63 (72) 99 10/31/19 06:15 95 23 103/52 (69) 99 10/31/19 06:00 95 23 100/54 (69) 99 10/31/19 06:00 100/54 10/31/19 05:45 94 22 89/57 (68) 99 10/31/19 05:44 99/56 10/31/19 05:30 94 24 99/56 (70) 99 10/31/19 05:19 108 20 100 10/31/19 05:15 94 24 98/60 (73) 99 10/31/19 05:00 93/57 10/31/19 05:00 93 24 93/57 (69) 99 10/31/19 04:45 94 25 89/61 (70) 99 10/31/19 04:30 93 24 99/56 (70) 99 10/31/19 04:15 93 24 95/58 (70) 100 10/31/19 04:00 100 10/31/19 04:00 98.1 92 25 95/59 (71) 100 10/31/19 04:00 95/59 10/31/19 04:00 92 10/31/19 04:00 Mechanical Ventilator 10/31/19 03:45 91 25 97/59 (72) 100 10/31/19 03:30 90 24 93/58 (70) 100 10/31/19 03:17 111 22 100 10/31/19 03:15 93 24 88/58 (68) 100 10/31/19 03:00 93 25 88/55 (66) 100 10/31/19 03:00 88/55 10/31/19 02:45 93 24 96/55 (69) 100 10/31/19 02:30 92 24 94/53 (67) 100 10/31/19 02:15 91 24 86/59 (68) 100 10/31/19 02:00 95/57 10/31/19 02:00 90 24 95/57 (70) 100 10/31/19 01:52 87/57 10/31/19 01:52 87/57 10/31/19 01:45 88 25 85/66 (72) 99 10/31/19 01:30 91 24 83/57 (66) 100 10/31/19 01:15 112 20 100 10/31/19 01:15 88 25 84/53 (63) 100 10/31/19 01:05 87 25 74/51 (59) 99 10/31/19 01:00 87 24 74/50 (58) 99 10/31/19 01:00 74/51 10/31/19 00:45 89 24 84/56 (65) 99 10/31/19 00:30 88 23 91/61 (71) 100 10/31/19 00:15 88 23 88/58 (68) 100 10/31/19 00:00 98.0 89 25 87/61 (70) 100 10/31/19 00:00 100 10/31/19 00:00 87/61 10/31/19 00:00 Mechanical Ventilator 10/31/19 00:00 89 10/30/19 23:45 93 24 90/59 (69) 99 10/30/19 23:30 96/64 10/30/19 23:30 94 26 81/62 (68) 99 10/30/19 23:15 96 26 92/58 (69) 99 10/30/19 23:10 110 22 100 10/30/19 23:00 97 26 82/60 (67) 99 10/30/19 23:00 82/60 10/30/19 22:45 104 36 120/64 (82) 99 10/30/19 22:30 97.9 103 36 126/66 (86) 10/30/19 22:30 112 10/30/19 22:00 97.7 106 22 120/64 99 Endotracheal Tube 15.0 100 10/30/19 22:00 Mechanical Ventilator 10/30/19 22:00 106/78 10/30/19 22:00 120/64 10/30/19 21:04 118 24 100 10/30/19 19:18 97.7 115 28 106/78 98 Mechanical Ventilator 15.0 100 10/30/19 19:01 116 20 100 10/30/19 18:06 97.2 116 33 108/82 98 Mechanical Ventilator 15.0 100 Intake and Output 10/30/19 10/31/19 19:00 07:00 Intake Total 475 ml 2899.95 ml Output Total 570 ml Balance 475 ml 2329.95 ml IV Total 475 ml 2899.95 ml Output Urine Total 570 ml Laboratory Tests Test 10/31/19 04:00 10/31/19 09:33 10/31/19 13:00 White Blood Count 23.8 K/UL (4.8-10.8) *H Red Blood Count 3.09 M/UL (4.70-6.10) L Hemoglobin 8.6 G/DL (14.2-18.0) L Hematocrit 27.0 % (42.0-52.0) L Mean Corpuscular Volume 88 FL (80-99) Mean Corpuscular Hemoglobin 28.0 PG (27.0-31.0) Mean Corpuscular Hemoglobin Concent 31.9 G/DL (32.0-36.0) L Red Cell Distribution Width 16.8 % (11.6-14.8) H Platelet Count 269 K/UL (150-450) Mean Platelet Volume 5.1 FL (6.5-10.1) L Neutrophils (%) (Auto) % (45.0-75.0) Lymphocytes (%) (Auto) % (20.0-45.0) Monocytes (%) (Auto) % (1.0-10.0) Eosinophils (%) (Auto) % (0.0-3.0) Basophils (%) (Auto) % (0.0-2.0) Differential Total Cells Counted 100 Neutrophils % (Manual) 81 % (45-75) H Lymphocytes % (Manual) 12 % (20-45) L Monocytes % (Manual) 1 % (1-10) Eosinophils % (Manual) 0 % (0-3) Basophils % (Manual) 0 % (0-2) Band Neutrophils 6 % (0-8) Platelet Estimate Adequate Platelet Morphology Normal Hypochromasia 2+ Anisocytosis 1+ Sodium Level 141 MMOL/L (136-145) Potassium Level 4.4 MMOL/L (3.5-5.1) Chloride Level 109 MMOL/L (98-107) H Carbon Dioxide Level 22 MMOL/L (21-32) Anion Gap 10 mmol/L (5-15) Blood Urea Nitrogen 21 mg/dL (7-18) H Creatinine 1.2 MG/DL (0.55-1.30) Estimat Glomerular Filtration Rate 59.3 mL/min (>60) Glucose Level 109 MG/DL (74-106) H Lactic Acid Level 1.70 mmol/L (0.4-2.0) Calcium Level 8.0 MG/DL (8.5-10.1) L Total Bilirubin 0.3 MG/DL (0.2-1.0) Direct Bilirubin < 0.1 MG/DL (0.0-0.3) Aspartate Amino Transf (AST/SGOT) 114 U/L (15-37) H Alanine Aminotransferase (ALT/SGPT) 116 U/L (12-78) H Alkaline Phosphatase 127 U/L (46-116) H Total Protein 5.8 G/DL (6.4-8.2) L Albumin 2.0 G/DL (3.4-5.0) L Globulin 3.8 g/dL Albumin/Globulin Ratio 0.5 (1.0-2.7) L Arterial Blood pH 7.433 (7.350-7.450) Arterial Blood Partial Pressure CO2 31.6 mmHg (35.0-45.0) L Arterial Blood Partial Pressure O2 133.7 mmHg (75.0-100.0) H Arterial Blood HCO3 20.6 mmol/L (22.0-26.0) L Arterial Blood Oxygen Saturation 98.7 % (95-100) Arterial Blood Base Excess -3.0 (-2-2) L Ty Test Positive Erythrocyte Sedimentation Rate 122 MM/HR (0-20) H Reticulocyte Count 1.8 % (0.5-2.0) Prothrombin Time 38.7 SEC (9.30-11.50) H Prothromb Time International Ratio 3.9 (0.9-1.1) H Activated Partial Thromboplast Time 90 SEC (23-33) H Iron Level 6 ug/dL (50-175) L Total Iron Binding Capacity 187 ug/dL (250-450) L Percent Iron Saturation 3 % (15-50) L Unsaturated Iron Binding 181 ug/dL (112-346) Lactate Dehydrogenase 243 U/L (81-234) H Carcinoembryonic Antigen Pending Vitamin B12 Level 1212 PG/ML (193-986) H Folate 13.0 NG/ML (8.6-58.9) Random Amikacin Level Pending Random Vancomycin Level 15.4 ug/mL Microbiology Date/Time Source Procedure Growth Status 10/30/19 09:45 Blood Blood Culture - Preliminary Resulted 10/30/19 08:45 Nasal Nares - Final Complete 10/30/19 08:45 Nasal Nares - Final Complete 10/30/19 10:45 Urine,Clean Catch Urine Culture - Preliminary NO GROWTH Resulted Carlos Slade MD Oct 31, 2019 17:31
--- NOTE | 2019-10-31 18:15 | NUR ---
NURSE NOTES: Dr. Turcios updated on patient condition, no verbal orders given at this time.
--- NOTE | 2019-10-31 18:15 | Consultation ---
DATE OF CONSULTATION: 10/31/2019 CARDIOLOGY CONSULTATION CONSULTING PHYSICIAN: Carlos Slade M.D. REFERRING PHYSICIAN: Danny Stark M.D. REASON FOR REFERRAL: Respiratory failure. HISTORY OF PRESENT ILLNESS: This is a very unfortunate 73-year-old gentleman who is really not able to provide any history whatsoever. He is a resident of convalescent facility. He was transferred to [facility] because of respiratory insufficiency. The patient was last hospitalized at [facility] in August 2019 and came in with garbled speech, possible transient ischemic attack, and metabolic encephalopathy. He was eventually transferred back to convalescent facility and now presents here. His diagnosis of a convalescent facility include aspiration pneumonia, sepsis, , diabetes, prostate cancer, dementia, anemia, CVA, atrial fibrillation, hyperlipidemia. He also carries a diagnoses of esophageal cancer, history of prostatectomy, appendectomy, and possibly pneumococcus pneumonia, laryngeal cancer, hyperlipidemia, hypertension, chronic atrial fibrillation, hypothyroidism, dementia, dysphagia, hypercapnia, and diabetes mellitus, CVA, anemia, , muscle wasting. ALLERGIES: He has no known drug allergies. SOCIAL HISTORY: Really unknown. Resident of [facility] facility. REVIEW OF SYSTEMS: Unable to obtain. Physical examination was not performed in light of the fact that he has multiple infectious etiologies including possibly COVID-19 and he is in isolation. His laboratory values were reviewed. The patient was examined outside through intensive care unit window. The patient is on a mechanical ventilator, appears to be relatively calm. His oxygen saturations are 99%. His heart rate is 98 and his blood pressure is in the 90s over 60s at this time. His telemetry data is reading sinus tachycardia at this time and his EKG when he came in also looks somewhat regular tachycardia, but a lot of movement artifact makes it difficult to be certain what appears to be sinus tachycardia with right bundle-branch conduction defect with secondary ST segment changes. His laboratories white count was 41,000 now down to 23.8 with hemoglobin down to 8.6 from 10.8 with a platelet count of 269. Sedimentation rate of 122. Blood gases, pH of 7.43, of 32, pO2 of 133, and bicarbonate of 26, 98% saturation. His sodium is 141, potassium 4.4, chloride 109, bicarb 22, BUN 21, creatinine 1.2, and glucose of 109. Iron 6 and 3% saturation. AST and ALT elevated at 114 and 116 and alkaline phosphatase 127. LDH of 243. Albumin of 2. Vitamin B12 of 1200 and folic acid of 13. Coags, INR 3.9 and PTT of 90. Urinalysis was 10 to 15 wbc's and 5 to 10 rbc's. Toxicology screen is pending. Chest x-ray performed today shows patchy interstitial and airspace disease demonstrate bilateral without significant change. Chest port is noted on the right side, endotracheal tube is stable and unchanged. ASSESSMENT AND PLAN: 1. Paroxysmal episodes of atrial fibrillation. 2. Respiratory failure. 3. Influenza A positive. 4. Malignant neoplasm of the larynx. 5. History of hypertension. 6. History of hyperlipidemia. 7. History of hypothyroidism. 8. Respiratory failure on a mechanical ventilator. 9. Diabetes mellitus type 2. 10. Coagulopathy. 11. Abnormal liver function tests. 12. Hypotension likely from sepsis and shock. This patient was seen in cardiac consultation. From cardiac point of view, he appears not to show any changes on the EKG suggestive of coronary syndrome. First set of cardiac enzymes were negative. The second set will be ordered for tomorrow morning. Chest x-ray shows evidence of pneumonia. The patient receiving intravenous antibiotics. His blood pressure needs to be supported with pressors. His COVID-19 status is pending at this time and his echocardiogram will be ordered once his COVID-19 status is confirmed. He is receiving Tamiflu for his respiratory failure and influenza positive status. Pulmonary support, pulmonary toilet, and vent support. Prognosis poor. The patient will be followed while he is here. Carlos Slade M.D. DR: James JOB#: [id number] CC:
--- NOTE | 2019-10-31 18:46 | History & Physical ---
History and Physical History & Physicial Dictated for Int Med-Dr Stark no. [id number]. Gallito Turcios MD Oct 31, 2019 18:46
--- NOTE | 2019-10-31 19:11 | NUR ---
HAND-OFF: Report given to VENKAT Vergara.
--- NOTE | 2019-10-31 19:15 | NUR ---
NURSE NOTES: Received patient from VENKAT Barton. patient asleep arousable to light touch. respirations even and tolerating ventilator with thick yellow secretions noted. BP 101/54 HR 100, Temp 100.4F axillary. levophed 10mcg/min running through right femoral TLC clean and asymptomatic. gtube running Jevity @10ml/hr with no residual noted. skin warm dry intact. right hand nonpitting edema noted. logan catheter draining scant amount of light faheem urine. will continue to monitor.
--- NOTE | 2019-10-31 19:45 | History and Physical Report ---
DATE OF ADMISSION: 10/30/2019 CHIEF COMPLAINT: The patient is a 73-year-old male with history of esophageal cancer presents with a chief complaint of respiratory failure. HISTORY OF PRESENT ILLNESS: The patient is a resident of [facility]. According to staff at [facility], the patient began to experience extreme shortness of breath on 10/30/2019. The patient was transported to [facility]. The patient was found to be in respiratory failure. The patient was emergently intubated in the emergency room. The patient is currently intubated in the intensive care unit. The patient is admitted with respiratory failure to rule out acute pneumonia. REVIEW OF SYSTEMS: Unable to assess secondary to the patient's mental status. PAST MEDICAL HISTORY: Significant for: 1. Type 2 diabetes. 2. Atrial fibrillation. 3. Hypothyroidism. 4. Hypertension. 5. Hypercholesterolemia. 6. Esophageal cancer. 7. Dysphagia. 8. History of prostate cancer. PAST SURGICAL HISTORY: Significant for: 1. Appendectomy. 2. Prostatectomy. 3. PEG placement. CURRENT MEDICATIONS: 1. Amiodarone 200 mg one tablet p.o. daily. 2. Apixaban 5 mg p.o. twice daily. 3. Atorvastatin 10 mg per G-tube at bedtime. 4. Lispro sliding scale. 5. Levothyroxine 50 mcg per G-tube daily. 6. Midodrine 10 mg per G-tube q.8h. 7. Seroquel 100 mg per G-tube twice daily. 8. Theophylline 200 mg per G-tube q.8h. 9. Thiamine 100 mg per G-tube daily. ALLERGIES: No known drug allergies. SOCIAL HISTORY: The patient is . The patient previously smoked tobacco; however, currently does not smoke tobacco. The patient denies alcohol use. PHYSICAL EXAMINATION: VITAL SIGNS: Temperature 98.1, respirations 25, pulse 92, blood pressure 95/59. GENERAL: The patient is well-developed, well-nourished male, who is intubated and sedated. HEENT: Eyes, pupils are equal and responsive to light and accommodation. Extraocular movements are intact. NECK: Supple without lymphadenopathy. CHEST: Coarse mechanical breath sounds bilaterally without wheezes or rales. CARDIOVASCULAR: Regular rhythm and rate. S1, S2 are normal without murmurs, rubs, or gallops. ABDOMEN: Soft, nontender, and nondistended. Positive bowel sounds. No evidence of hepatosplenomegaly. Currently, no rebound or guarding noted. EXTREMITIES: Negative for clubbing, cyanosis, or edema. RECTAL/GENITAL: Not performed. NEUROLOGICAL: Unable to assess. LABORATORY STUDIES: WBC 41.8, hemoglobin 10.8, hematocrit 33.8, platelets 449,000. Sodium 141, potassium 4.4, chloride 109, CO2 22, BUN 29, creatinine 1.2, glucose 109. A chest x-ray was reported as bilateral nodular interstitial disease bilaterally consistent with pneumonia. ASSESSMENT: This is a 73-year-old male. 1. Respiratory failure. 2. Pneumonia. 3. Esophageal cancer. 4. Diabetes type 2. 5. Hypertension. 6. Hypercholesterolemia. 7. Atrial fibrillation. 8. Hypothyroidism. 9. Dysphagia. 10. History of prostate cancer. TREATMENT: 1. Pneumonia/respiratory failure. A Pulmonary consultation has been obtained with Dr. Jackie Kaiser. The patient has been started empirically on intravenous vancomycin and ertapenem. The patient is also receiving amikacin. An Infectious Disease consultation has been obtained with Dr. Yifan Rivera. We will follow recommendations of Infectious Disease and Pulmonary. A sputum culture is pending. 2. Esophageal cancer. 3. Diabetes type 2. A NovoLog sliding scale has been instituted. 4. Hypertension. The patient is currently hypotensive and probable sepsis. 5. Hypercholesterolemia. Continue atorvastatin as above. 6. Atrial fibrillation. Continue amiodarone as above. 7. Hypothyroidism. Continue levothyroxine as above. 8. Dysphagia, status post PEG placement. 9. History of prostate cancer. Gallito Turcios M.D. DR: KHADRA JOB#: [id number] CC:
--- NOTE | 2019-10-31 22:00 | NUR ---
NURSE NOTES: patient asleep arousable to light touch. respirations even and tolerating ventilator with oxygen saturation 99%. BP 118/66, with levophed at 10mcg/min running through right femoral TLC clean and asymptomatic. logan catheter leaking and discontinued. new 16F logan catheter inserted. gtube running jevity @10ml/hr with no residual noted. patient repositioned and oral care provided. will continue to monitor.
[2019-10-31] MEDS: Amikacin 1,000 MG in NS 110 ML IV SCH (22:16)
[2019-10-31] MEDS: Ertapenem 1 GM in NS 55 ML IV SCH (23:59)
[2019-11-01] VITALS (49 sets, daily range): BP systolic 50–147; BP diastolic 45–73
--- NOTE | 2019-11-01 | NUR ---
NURSE NOTES: patient asleep arousable to light shaking. patient on ventilator with moderate amount of yellow secretions. BP 96/52, levophed remains at 10mcg/min through the right femoral TLC clean and asymptomatic. Temp 99.9F axillary. patient tolerating jevity @10ml/hr with no residual noted. logan catheter draining to gravity. patient repositioned and oral care provided. will continue to monitor.
--- NOTE | 2019-11-01 02:00 | NUR ---
NURSE NOTES: patient asleep arousable to light shaking. patient on ventilator AC16 TV600 FIO2 90%. BP 95/57, levophed remains at 10mcg/min through the right femoral TLC, clean and asymptomatic. GTUBE running jevity @10ml/hr with no residual noted. logan catheter draining to gravity. patient repositioned and oral care provided. will continue to monitor.
[2019-11-01] MEDS: Vancomycin 500mg/D5W 110ml IVPB SCH ×4 (03:34→17:05)
--- NOTE | 2019-11-01 04:00 | NUR ---
NURSE NOTES: patient asleep arousable to light shaking. patient on ventilator AC16 TV600 FIO2 90%. moderate amount of yellow secretions noted. BP 95/59, levophed remains at 10mcg/min through the right femoral TLC, clean and asymptomatic. GTUBE running jevity @10ml/hr with no residual noted. logan catheter draining yellow urine with small amount of sediment noted. patient repositioned, bed bath and oral care provided. will continue to monitor.
[2019-11-01 05:30] LABS: HEMATOCRIT 23.8 % (42.0-52.0); HEMOGLOBIN 7.6 G/DL (14.2-18.0); MEAN CORPUSCULAR VOLUME 87 FL (80-99); PLATELET COUNT 231 K/UL (150-450); RED BLOOD COUNT 2.74 M/UL (4.70-6.10); RED CELL DISTRIBUTION WIDTH 16.8 % (11.6-14.8); WHITE BLOOD COUNT 18.8 K/UL (4.8-10.8)
--- NOTE | 2019-11-01 06:00 | NUR ---
NURSE NOTES: patient asleep arousable to light shaking. patient with ETT on ventilator AC16 TV600 FIO2 90%, oxygen saturation 97%. BP 102/53, levophed remains at 10mcg/min through the right femoral TLC, clean and asymptomatic. GTUBE held for medication. logan catheter draining yellow urine with small amount of sediment noted. skin warm dry intact with right hand nonpitting edema noted. patient repositioned, bed bath and oral care provided. will continue to monitor.
[2019-11-01 06:06] LABS: ALANINE AMINOTRANSFERASE 81 U/L (12-78); ALBUMIN 1.8 G/DL (3.4-5.0); ALBUMIN/GLOBULIN RATIO 0.5 (1.0-2.7); ALKALINE PHOSPHATASE 121 U/L (46-116); ANION GAP 10 mmol/L (5-15); ASPARTATE AMINO TRANSFERASE 66 U/L (15-37); BILIRUBIN,TOTAL 0.3 MG/DL (0.2-1.0); BLOOD UREA NITROGEN 14 mg/dL (7-18); CALCIUM 7.9 MG/DL (8.5-10.1); CARBON DIOXIDE 23 MMOL/L (21-32); CHLORIDE 108 MMOL/L (98-107); PHOSPHORUS 1.6 MG/DL (2.5-4.9); POTASSIUM 3.4 MMOL/L (3.5-5.1); SODIUM 141 MMOL/L (136-145)
--- NOTE | 2019-11-01 07:14 | NUR ---
HAND-OFF: Report given to VENKAT Barton.
[2019-11-01] MEDS: Heparin 5000 units/ml inj SUBQ SCH ×2 (08:52→20:44)
[2019-11-01] MEDS: Amiodarone 200mg tab PEG SCH (08:52)
[2019-11-01] MEDS: Pantoprazole Inj IVP SCH (08:52)
--- NOTE | 2019-11-01 09:15 | NUR ---
RESPIRATORY NOTE: received pt orally intubated with 7.5 ETT placed 23 cm at the lip. ETT is secured via anchor fast with no visible redness or skin irriation around facial/mouth area. pt tolerating current vent settings. current fio2 50% and will attempt titrate. ambu bag at bedside with alarms on and audible. vent is also plugged into the red outlet. will cont to monitor throughout the day.
--- NOTE | 2019-11-01 09:25 | NUR ---
RADIOLOGY DEPT., CHEST X-RAY DONE-P.DYE
--- NOTE | 2019-11-01 09:45 | NUR ---
NURSE NOTES: Patient repositioned and cleaned after morning medication administered, oral care provided. currently remains on Levophed at 10mcg/min.
--- NOTE | 2019-11-01 11:19 | NUR ---
NURSE NOTES: Dr. Kaiser updated on patient respiratory status. FIO2 titrated to 50% with saturations of 94-96%. remain on Levophed at 10mcg/min at rate of 38.1ml/hr made aware of phosphorous level of 1.6 and potassium of 3.4. no verbal orders given at this time.
--- NOTE | 2019-11-01 11:35 | Pulmonolgy Critical Care Note ---
Critical Care - Asmt/Plan Problems: (1) Nosocomial pneumonia (2) Septic shock (3) COPD (chronic obstructive pulmonary disease) (4) Psychosis (5) Hypothyroidism (6) Atrial fibrillation (7) Severe anemia (8) Suspected 2019-nCoV infection Respiratory: monitor respiratory rate, adjust FIO2, CXR Cardiac: continue pressors, continue to monitor HR/BP Infectious Disease: check cultures Gastrointestinal: continue feedings/current rate Endocrine: monitor blood sugar, check HgA1C Neurologic: PRN Ativan, PRN Morphine, keep patient comfortable Time Spent (Minutes): 40 Notes Reviewed: caregivers homecare, renal Discussed with: nurses Critical Care - Objective Last 24 Hour Vital Signs Date Time Temp Pulse Resp B/P (MAP) Pulse Ox O2 Delivery O2 Flow Rate FiO2 11/01/19 11:00 91 18 105/62 (76) 94 11/01/19 10:37 97 21 50 11/01/19 10:30 91 18 107/53 (71) 95 11/01/19 10:00 91 18 97/54 (68) 92 11/01/19 09:30 95 19 95/57 (70) 93 11/01/19 09:12 97 22 50 11/01/19 09:00 90 25 98/54 (69) 100 11/01/19 08:30 93 26 102/56 (71) 99 11/01/19 08:00 Mechanical Ventilator 11/01/19 08:00 89 11/01/19 08:00 98.8 95 21 120/63 (82) 99 11/01/19 08:00 90 11/01/19 07:30 100 23 110/71 (84) 98 11/01/19 07:27 87 18 90 11/01/19 07:00 93 21 94/54 (67) 100 11/01/19 06:57 100/52 11/01/19 06:35 95 22 11/01/19 06:30 95 23 96/51 (66) 99 11/01/19 06:00 97 21 102/53 (69) 97 11/01/19 06:00 102/53 11/01/19 05:30 102 25 96/51 (66) 99 11/01/19 05:27 94 29 90 11/01/19 05:00 90/63 11/01/19 05:00 89 22 90/63 (72) 99 11/01/19 04:30 88 25 104/54 (71) 100 11/01/19 04:00 Mechanical Ventilator 11/01/19 04:00 99.1 87 21 106/56 (73) 100 11/01/19 04:00 90 11/01/19 04:00 106/56 11/01/19 04:00 87 11/01/19 03:30 93 22 120/55 (76) 100 11/01/19 03:00 88 23 107/51 (69) 99 11/01/19 03:00 88/55 11/01/19 02:30 96 16 116/56 (76) 98 11/01/19 02:00 88 24 103/50 (67) 99 11/01/19 02:00 103/50 11/01/19 01:30 86 24 118/57 (77) 100 11/01/19 01:28 72 24 90 11/01/19 01:00 90 19 103/52 (69) 99 11/01/19 01:00 103/52 11/01/19 00:30 97 32 121/56 (77) 100 11/01/19 00:00 99.9 89 21 96/52 (67) 99 11/01/19 00:00 96/52 11/01/19 00:00 Mechanical Ventilator 10/31/19 23:58 97/48 10/31/19 23:30 93 20 101/50 (67) 99 10/31/19 23:26 92 21 90 10/31/19 23:00 95/48 10/31/19 23:00 86 20 95/48 (64) 100 10/31/19 22:30 90 22 96/52 (67) 99 10/31/19 22:00 95 27 118/66 (83) 100 10/31/19 21:30 87 22 103/52 (69) 100 10/31/19 21:20 87 22 90 10/31/19 21:00 90 21 102/55 (71) 100 10/31/19 21:00 101/54 10/31/19 20:30 87 23 105/55 (72) 100 10/31/19 20:00 90 10/31/19 20:00 Mechanical Ventilator 10/31/19 20:00 101/54 10/31/19 20:00 87 10/31/19 20:00 100.4 95 21 101/54 (70) 99 10/31/19 19:30 100 24 106/57 (73) 100 10/31/19 19:15 102 28 112/55 (74) 100 10/31/19 19:15 92 21 90 10/31/19 19:00 100 22 101/54 (70) 99 10/31/19 18:30 101 23 101/58 (72) 99 10/31/19 18:00 98 22 100/60 (73) 100 10/31/19 17:30 98 21 100/56 (71) 100 10/31/19 17:24 90/51 10/31/19 17:00 105 21 83/51 (62) 100 10/31/19 16:31 103 25 100 10/31/19 16:30 101 22 111/56 (74) 100 10/31/19 16:00 Mechanical Ventilator 10/31/19 16:00 104 10/31/19 16:00 90 10/31/19 16:00 99.2 100 21 92/52 (65) 100 10/31/19 15:30 98 20 91/52 (65) 100 10/31/19 15:00 94 21 109/58 (75) 100 10/31/19 15:00 94 24 100 10/31/19 14:30 98 20 94/52 (66) 99 10/31/19 14:00 100 21 90/54 (66) 88 10/31/19 14:00 90/54 10/31/19 13:30 102 22 94/55 (68) 99 10/31/19 13:00 99/56 10/31/19 13:00 105 23 99/56 (70) 99 10/31/19 12:30 101 22 92/52 (65) 100 10/31/19 12:00 106 23 94/52 (66) 100 10/31/19 12:00 Mechanical Ventilator 10/31/19 12:00 90 10/31/19 12:00 94/52 10/31/19 12:00 96 10/31/19 11:30 98.9 107 26 83/53 (63) 100 Status: sedated Condition: grave Neck: full ROM Lungs: clear Heart: HR/BP stable, regular Abdomen: active bowel sounds Extremities: no C/C/E Decubiti: location Micro: Microbiology Date/Time Source Procedure Growth Status 10/30/19 09:45 Blood Blood Culture - Preliminary Strep Species, Gamma-Hemolytic Resulted 10/30/19 09:20 Blood Blood Culture - Preliminary NO GROWTH AFTER 24 HOURS Resulted 10/30/19 23:30 Sputum Gram Stain - Final Resulted 10/30/19 23:30 Sputum Sputum Culture Pending Resulted 10/30/19 15:39 Nasal Nares MRSA Culture - Final NO METHICILLIN RESISTANT STAPH AUREUS... Complete 10/30/19 09:20 Nasopharynx Coronavirus COVID-19 PCR (PAL) - Final Complete 10/30/19 08:45 Nasal Nares - Final Complete 10/30/19 08:45 Nasal Nares - Final Complete 10/30/19 10:45 Urine,Clean Catch Urine Culture - Final NO GROWTH AFTER 48 HOURS Complete 10/30/19 15:39 Rectum VRE Culture - Final Enterococcus Faecalis - Vre Enterococcus Faecium - Vre Complete 10/30/19 15:39 Rectum - Final NO CARBAPENEM-RESISTANT ENTEROBACTERI... Complete Critical Care - Subjective ROS Limited/Unobtainable: No Condition: critical EKG Rhythm: Sinus Rhythm FI02: 50 Vent Support Breath Rate: 16 Vent Support Mode: AC Vent Tidal Volume: 600 Sputum Amount: Small PEEP: 0.0 PIP: 47 Tube Feeding Amount: 10 I&O: Intake and Output 10/31/19 11/01/19 19:00 07:00 Intake Total 1644.3813 ml 1474.1 ml Output Total 625 ml 650 ml Balance 1019.3813 ml 824.1 ml Intake Free Water 20 ml 100 ml IV Total 1564.3813 ml 1284.1 ml Tube Feeding 60 ml 90 ml Output Urine Total 625 ml 650 ml CXR: bilateral infiltrate ET-Tube: 7.5 ET Position: 23 Labs: Laboratory Tests Test 10/31/19 13:00 11/01/19 04:00 11/01/19 07:40 Erythrocyte Sedimentation Rate 122 MM/HR (0-20) H Reticulocyte Count 1.8 % (0.5-2.0) Prothrombin Time 38.7 SEC (9.30-11.50) H Prothromb Time International Ratio 3.9 (0.9-1.1) H Activated Partial Thromboplast Time 90 SEC (23-33) H Iron Level 6 ug/dL (50-175) L Total Iron Binding Capacity 187 ug/dL (250-450) L Percent Iron Saturation 3 % (15-50) L Unsaturated Iron Binding 181 ug/dL (112-346) Lactate Dehydrogenase 243 U/L (81-234) H Carcinoembryonic Antigen 6.0 ng/mL (0.0-4.7) H Vitamin B12 Level 1212 PG/ML (193-986) H Folate 13.0 NG/ML (8.6-58.9) Random Amikacin Level 10.6 MG/L Random Vancomycin Level 15.4 ug/mL White Blood Count 18.8 K/UL (4.8-10.8) H Red Blood Count 2.74 M/UL (4.70-6.10) L Hemoglobin 7.6 G/DL (14.2-18.0) L Hematocrit 23.8 % (42.0-52.0) L Mean Corpuscular Volume 87 FL (80-99) Mean Corpuscular Hemoglobin 27.7 PG (27.0-31.0) Mean Corpuscular Hemoglobin Concent 31.8 G/DL (32.0-36.0) L Red Cell Distribution Width 16.8 % (11.6-14.8) H Platelet Count 231 K/UL (150-450) Mean Platelet Volume 5.5 FL (6.5-10.1) L Neutrophils (%) (Auto) % (45.0-75.0) Lymphocytes (%) (Auto) % (20.0-45.0) Monocytes (%) (Auto) % (1.0-10.0) Eosinophils (%) (Auto) % (0.0-3.0) Basophils (%) (Auto) % (0.0-2.0) Differential Total Cells Counted 100 Neutrophils % (Manual) 85 % (45-75) H Lymphocytes % (Manual) 10 % (20-45) L Monocytes % (Manual) 5 % (1-10) Eosinophils % (Manual) 0 % (0-3) Basophils % (Manual) 0 % (0-2) Band Neutrophils 0 % (0-8) Platelet Estimate Adequate Platelet Morphology Normal Anisocytosis 1+ Sodium Level 141 MMOL/L (136-145) Potassium Level 3.4 MMOL/L (3.5-5.1) L Chloride Level 108 MMOL/L (98-107) H Carbon Dioxide Level 23 MMOL/L (21-32) Anion Gap 10 mmol/L (5-15) Blood Urea Nitrogen 14 mg/dL (7-18) Creatinine 1.0 MG/DL (0.55-1.30) Estimat Glomerular Filtration Rate > 60 mL/min (>60) Glucose Level 89 MG/DL (74-106) Calcium Level 7.9 MG/DL (8.5-10.1) L Phosphorus Level 1.6 MG/DL (2.5-4.9) L Magnesium Level 2.3 MG/DL (1.8-2.4) Total Bilirubin 0.3 MG/DL (0.2-1.0) Aspartate Amino Transf (AST/SGOT) 66 U/L (15-37) H Alanine Aminotransferase (ALT/SGPT) 81 U/L (12-78) H Alkaline Phosphatase 121 U/L (46-116) H Total Protein 5.3 G/DL (6.4-8.2) L Albumin 1.8 G/DL (3.4-5.0) L Globulin 3.5 g/dL Albumin/Globulin Ratio 0.5 (1.0-2.7) L Arterial Blood pH 7.437 (7.350-7.450) Arterial Blood Partial Pressure CO2 30.8 mmHg (35.0-45.0) L Arterial Blood Partial Pressure O2 112.0 mmHg (75.0-100.0) H Arterial Blood HCO3 20.3 mmol/L (22.0-26.0) L Arterial Blood Oxygen Saturation 98.3 % (95-100) Arterial Blood Base Excess -3.4 (-2-2) L Ty Test Positive Jackie Kaiser MD Nov 01, 2019 11:35
[2019-11-01] MEDS ORDERED: Sodium Phosphate 30 MM in NS 275 ML IV ONE (13:00)
--- NOTE | 2019-11-01 15:09 | Diagnostic Imaging Report ---
Indication: Dyspnea Comparison: 10/31/2019 A single view chest radiograph was obtained. Findings: Worsening interstitial and alveolar airspace opacities demonstrated bilaterally. Heart is enlarged. Right chest port and endotracheal tube appear stable and unchanged. IMPRESSION: Worsening congestive heart failure.
[2019-11-01] MEDS: LORazepam Inj 2mg/ml 1ml IV PRN (15:22)
--- NOTE | 2019-11-01 15:32 | NUR ---
NURSE NOTES: Dr. Rivera updated by charge nurse on patient COVID - 19 resulting negative. ordered to have patient remains on droplet for the influenza A being positive. also made aware of a positive VRE - rectum. no verbal orders given at this time.
--- NOTE | 2019-11-01 16:21 | Cardiology Progress Note ---
Assessment/Plan Assessment/Plan 1. Paroxysmal episodes of atrial fibrillation. 2. Respiratory failure. 3. Influenza A positive. 4. Malignant neoplasm of the larynx. 5. History of hypertension. 6. History of hyperlipidemia. 7. History of hypothyroidism. 8. Respiratory failure on a mechanical ventilator. 9. Diabetes mellitus type 2. 10. Coagulopathy. 11. Abnormal liver function tests. 12. Hypotension likely from sepsis and shock influenza positive on pressor anemic to receive prbc tx lft are improved wbc improved stillelelvated covid 19 just return neg will have echo tomorrow with pressor cannot diurese probnp was notp sig elevated will watch sat over the next day or so diuresis in futuree once off pressors if chf cxr reviewed ekg reviewed tele reviewed Subjective ROS Limited/Unobtainable: Yes Objective Last 24 Hour Vital Signs Date Time Temp Pulse Resp B/P (MAP) Pulse Ox O2 Delivery O2 Flow Rate FiO2 11/01/19 15:30 82 18 105/49 (67) 97 11/01/19 15:30 105/49 11/01/19 15:00 92 21 123/57 (79) 96 11/01/19 14:34 92 20 50 11/01/19 14:30 90 20 114/73 (87) 96 11/01/19 14:00 94 22 147/73 (97) 95 11/01/19 13:39 111/60 11/01/19 13:30 88 18 111/60 (77) 95 11/01/19 13:10 92 19 50 11/01/19 13:00 88 17 103/60 (74) 95 11/01/19 12:30 90 17 124/55 (78) 95 11/01/19 12:00 Mechanical Ventilator 11/01/19 12:00 99.1 90 17 103/62 (76) 95 11/01/19 12:00 90 11/01/19 12:00 50 11/01/19 11:30 93 19 109/57 (74) 94 11/01/19 11:00 91 18 105/62 (76) 94 11/01/19 10:37 97 21 50 11/01/19 10:30 91 18 107/53 (71) 95 11/01/19 10:00 91 18 97/54 (68) 92 11/01/19 09:30 95 19 95/57 (70) 93 11/01/19 09:12 97 22 50 11/01/19 09:00 90 25 98/54 (69) 100 11/01/19 08:30 93 26 102/56 (71) 99 11/01/19 08:00 Mechanical Ventilator 11/01/19 08:00 89 11/01/19 08:00 98.8 95 21 120/63 (82) 99 11/01/19 08:00 90 11/01/19 07:30 100 23 110/71 (84) 98 11/01/19 07:27 87 18 90 11/01/19 07:00 93 21 94/54 (67) 100 11/01/19 06:57 100/52 11/01/19 06:35 95 22 11/01/19 06:30 95 23 96/51 (66) 99 11/01/19 06:00 97 21 102/53 (69) 97 11/01/19 06:00 102/53 11/01/19 05:30 102 25 96/51 (66) 99 11/01/19 05:27 94 29 90 11/01/19 05:00 90/63 11/01/19 05:00 89 22 90/63 (72) 99 11/01/19 04:30 88 25 104/54 (71) 100 11/01/19 04:00 Mechanical Ventilator 11/01/19 04:00 99.1 87 21 106/56 (73) 100 11/01/19 04:00 90 11/01/19 04:00 106/56 11/01/19 04:00 87 11/01/19 03:30 93 22 120/55 (76) 100 11/01/19 03:00 88 23 107/51 (69) 99 11/01/19 03:00 88/55 11/01/19 02:30 96 16 116/56 (76) 98 11/01/19 02:00 88 24 103/50 (67) 99 11/01/19 02:00 103/50 11/01/19 01:30 86 24 118/57 (77) 100 11/01/19 01:28 72 24 90 11/01/19 01:00 90 19 103/52 (69) 99 11/01/19 01:00 103/52 11/01/19 00:30 97 32 121/56 (77) 100 11/01/19 00:00 99.9 89 21 96/52 (67) 99 11/01/19 00:00 96/52 11/01/19 00:00 Mechanical Ventilator 10/31/19 23:58 97/48 10/31/19 23:30 93 20 101/50 (67) 99 10/31/19 23:26 92 21 90 10/31/19 23:00 95/48 10/31/19 23:00 86 20 95/48 (64) 100 10/31/19 22:30 90 22 96/52 (67) 99 10/31/19 22:00 95 27 118/66 (83) 100 10/31/19 21:30 87 22 103/52 (69) 100 10/31/19 21:20 87 22 90 10/31/19 21:00 90 21 102/55 (71) 100 10/31/19 21:00 101/54 10/31/19 20:30 87 23 105/55 (72) 100 10/31/19 20:00 90 10/31/19 20:00 Mechanical Ventilator 10/31/19 20:00 101/54 10/31/19 20:00 87 10/31/19 20:00 100.4 95 21 101/54 (70) 99 10/31/19 19:30 100 24 106/57 (73) 100 10/31/19 19:15 102 28 112/55 (74) 100 10/31/19 19:15 92 21 90 10/31/19 19:00 100 22 101/54 (70) 99 10/31/19 18:30 101 23 101/58 (72) 99 10/31/19 18:00 98 22 100/60 (73) 100 10/31/19 17:30 98 21 100/56 (71) 100 10/31/19 17:24 90/51 10/31/19 17:00 105 21 83/51 (62) 100 10/31/19 16:31 103 25 100 10/31/19 16:30 101 22 111/56 (74) 100 General Appearance: on vent, patient on isolation Intake and Output 10/31/19 11/01/19 19:00 07:00 Intake Total 1644.3813 ml 1474.1 ml Output Total 625 ml 650 ml Balance 1019.3813 ml 824.1 ml Intake Free Water 20 ml 100 ml IV Total 1564.3813 ml 1284.1 ml Tube Feeding 60 ml 90 ml Output Urine Total 625 ml 650 ml Laboratory Tests Test 11/01/19 04:00 11/01/19 07:40 White Blood Count 18.8 K/UL (4.8-10.8) H Red Blood Count 2.74 M/UL (4.70-6.10) L Hemoglobin 7.6 G/DL (14.2-18.0) L Hematocrit 23.8 % (42.0-52.0) L Mean Corpuscular Volume 87 FL (80-99) Mean Corpuscular Hemoglobin 27.7 PG (27.0-31.0) Mean Corpuscular Hemoglobin Concent 31.8 G/DL (32.0-36.0) L Red Cell Distribution Width 16.8 % (11.6-14.8) H Platelet Count 231 K/UL (150-450) Mean Platelet Volume 5.5 FL (6.5-10.1) L Neutrophils (%) (Auto) % (45.0-75.0) Lymphocytes (%) (Auto) % (20.0-45.0) Monocytes (%) (Auto) % (1.0-10.0) Eosinophils (%) (Auto) % (0.0-3.0) Basophils (%) (Auto) % (0.0-2.0) Differential Total Cells Counted 100 Neutrophils % (Manual) 85 % (45-75) H Lymphocytes % (Manual) 10 % (20-45) L Monocytes % (Manual) 5 % (1-10) Eosinophils % (Manual) 0 % (0-3) Basophils % (Manual) 0 % (0-2) Band Neutrophils 0 % (0-8) Platelet Estimate Adequate Platelet Morphology Normal Anisocytosis 1+ Sodium Level 141 MMOL/L (136-145) Potassium Level 3.4 MMOL/L (3.5-5.1) L Chloride Level 108 MMOL/L (98-107) H Carbon Dioxide Level 23 MMOL/L (21-32) Anion Gap 10 mmol/L (5-15) Blood Urea Nitrogen 14 mg/dL (7-18) Creatinine 1.0 MG/DL (0.55-1.30) Estimat Glomerular Filtration Rate > 60 mL/min (>60) Glucose Level 89 MG/DL (74-106) Calcium Level 7.9 MG/DL (8.5-10.1) L Phosphorus Level 1.6 MG/DL (2.5-4.9) L Magnesium Level 2.3 MG/DL (1.8-2.4) Total Bilirubin 0.3 MG/DL (0.2-1.0) Aspartate Amino Transf (AST/SGOT) 66 U/L (15-37) H Alanine Aminotransferase (ALT/SGPT) 81 U/L (12-78) H Alkaline Phosphatase 121 U/L (46-116) H Total Protein 5.3 G/DL (6.4-8.2) L Albumin 1.8 G/DL (3.4-5.0) L Globulin 3.5 g/dL Albumin/Globulin Ratio 0.5 (1.0-2.7) L Arterial Blood pH 7.437 (7.350-7.450) Arterial Blood Partial Pressure CO2 30.8 mmHg (35.0-45.0) L Arterial Blood Partial Pressure O2 112.0 mmHg (75.0-100.0) H Arterial Blood HCO3 20.3 mmol/L (22.0-26.0) L Arterial Blood Oxygen Saturation 98.3 % (95-100) Arterial Blood Base Excess -3.4 (-2-2) L Ty Test Positive Microbiology Date/Time Source Procedure Growth Status 10/30/19 09:45 Blood Blood Culture - Preliminary Strep Species, Gamma-Hemolytic Resulted 10/30/19 09:20 Blood Blood Culture - Preliminary NO GROWTH AFTER 24 HOURS Resulted 10/30/19 23:30 Sputum Gram Stain - Final Resulted 10/30/19 23:30 Sputum Sputum Culture Pending Resulted 10/30/19 15:39 Nasal Nares MRSA Culture - Final NO METHICILLIN RESISTANT STAPH AUREUS... Complete 10/30/19 09:20 Nasopharynx Coronavirus COVID-19 PCR (PAL) - Final Complete 10/30/19 08:45 Nasal Nares - Final Complete 10/30/19 08:45 Nasal Nares - Final Complete 10/30/19 10:45 Urine,Clean Catch Urine Culture - Final NO GROWTH AFTER 48 HOURS Complete 10/30/19 15:39 Rectum VRE Culture - Final Enterococcus Faecalis - Vre Enterococcus Faecium - Vre Complete 10/30/19 15:39 Rectum - Final NO CARBAPENEM-RESISTANT ENTEROBACTERI... Complete Carlos Slade MD Nov 01, 2019 16:21
--- NOTE | 2019-11-01 16:30 | NUR ---
NURSE NOTES: Dr. Slade made aware patient heart rate remaining around 75-89 in sinus rhythm. still remains on levophed at 6mcg/min. no verbal orders given at this time.
--- NOTE | 2019-11-01 16:55 | NUR ---
NURSE NOTES: Final bag of potassium chloride given to complete 40mEq. patient repositioned and suctioned, patient remains on NS at 100ml/hr, Levophed at 6mcg/min. tube feeding remains at 10ml/hr through G-tube.
--- NOTE | 2019-11-01 19:38 | NUR ---
HAND-OFF: Report given to VENKAT Henriquez. endorsed to regarding one unit of prbc to be given. Consent obtained from Josr Cooley by telephone consent. verified by VENKAT Geiger.
--- NOTE | 2019-11-01 19:50 | NUR ---
NURSE NOTES: LE: PATIENT ASLEEP STATUS, ON ETT TO VENT AC16/TV 600/FIO2 40%/NO PEEP, O2 SATURATION OVER 935 NOTED, ABDOMEN SOFT, NO BM STATUS, G TUBE INTACT AND PATENT, ONGOING JEVITY 1.2 T 10ML/HR, NO RESIDUE NOTED, KEPT HOB 30 DEGREES AND ASPIRATION PRECAUTION, F/C INTACT AND PATENT, YELLOW URINE OUTED, TLC TO RIGHT FEMORAL INTACT AND PATENT, ONGOING LEVOPHED 6MCG/MIN AND IV FLUID NS AT 100ML/HR VIA TLC, 2 POINT SOFT RESTRAINTS, MADE LOW BED POSITION, ON P200 BED, BED ALARM AND LOCKED, PLACED CALL LIGHT WITHIN REACH, WILL CONTINUE TO MONITOR.
--- NOTE | 2019-11-01 20:34 | Infectious Diseases Prog Note ---
Assessment/Plan Assessment/Plan Afebrile Leukocytosis, neutrophil predominant Septic shock PNA Influenza A Probable superimposed bacterial PNA SARS CoV PCR negative CXR: Bilateral mostly nodular mostly interstitial disease, as described. This could represent interstitial pneumonia or edema, among many other possibilities. However, given the nodular appearance and the presence of an infusion catheter the possibility of nodular metastatic disease should also be considered. Possible UTI UA 10-15 WBC r/o bacteremia BCx: P QTc 552 Afib COPD Hypothyroid Dyslipidemia HTN DM Anemia CVA G tube, h/o abscess complication head and neck cancer Plan: ertapenem, amikacin #2 4/3 DC vanc #2 Tamiflu #2/5. monitor temp and CBC monitor resp status droplet isolation f/u bcx f/u UCx f/u sputum cx DW RN Thank you for this consult. [facility] Will continue to follow the patient with you. Subjective Allergies: Coded Allergies: No Known Allergies (Unverified , 10/30/19) Subjective Tmax 100.4 FiO2 30%, improving Levophed requirement decreasing Objective Vital Signs Last 24 Hour Vital Signs Date Time Temp Pulse Resp B/P (MAP) Pulse Ox O2 Delivery O2 Flow Rate FiO2 11/01/19 19:39 78 16 40 11/01/19 19:00 77 18 93/47 (62) 94 11/01/19 18:30 78 18 107/50 (69) 93 11/01/19 18:30 107/50 11/01/19 18:00 77 17 100/49 (66) 94 11/01/19 17:30 76 17 113/56 (75) 95 11/01/19 17:00 87/55 11/01/19 17:00 75 16 87/55 (66) 95 11/01/19 16:42 78 16 40 11/01/19 16:30 77 16 93/49 (64) 94 11/01/19 16:00 Mechanical Ventilator 11/01/19 16:00 98.8 82 16 91/45 (60) 94 11/01/19 16:00 78 11/01/19 16:00 50 11/01/19 15:30 82 18 105/49 (67) 97 11/01/19 15:30 105/49 11/01/19 15:00 92 21 123/57 (79) 96 11/01/19 14:34 92 20 50 11/01/19 14:30 90 20 114/73 (87) 96 11/01/19 14:00 94 22 147/73 (97) 95 11/01/19 13:39 111/60 11/01/19 13:30 88 18 111/60 (77) 95 11/01/19 13:10 92 19 50 11/01/19 13:00 88 17 103/60 (74) 95 11/01/19 12:30 90 17 124/55 (78) 95 11/01/19 12:00 Mechanical Ventilator 11/01/19 12:00 99.1 90 17 103/62 (76) 95 11/01/19 12:00 90 11/01/19 12:00 50 11/01/19 11:30 93 19 109/57 (74) 94 11/01/19 11:00 91 18 105/62 (76) 94 11/01/19 10:37 97 21 50 11/01/19 10:30 91 18 107/53 (71) 95 11/01/19 10:00 91 18 97/54 (68) 92 11/01/19 09:30 95 19 95/57 (70) 93 11/01/19 09:12 97 22 50 11/01/19 09:00 90 25 98/54 (69) 100 11/01/19 08:30 93 26 102/56 (71) 99 11/01/19 08:00 Mechanical Ventilator 11/01/19 08:00 89 11/01/19 08:00 98.8 95 21 120/63 (82) 99 11/01/19 08:00 90 11/01/19 07:30 100 23 110/71 (84) 98 11/01/19 07:27 87 18 90 11/01/19 07:00 93 21 94/54 (67) 100 11/01/19 06:57 100/52 11/01/19 06:35 95 22 11/01/19 06:30 95 23 96/51 (66) 99 11/01/19 06:00 97 21 102/53 (69) 97 11/01/19 06:00 102/53 11/01/19 05:30 102 25 96/51 (66) 99 11/01/19 05:27 94 29 90 11/01/19 05:00 90/63 11/01/19 05:00 89 22 90/63 (72) 99 11/01/19 04:30 88 25 104/54 (71) 100 11/01/19 04:00 Mechanical Ventilator 11/01/19 04:00 99.1 87 21 106/56 (73) 100 11/01/19 04:00 90 11/01/19 04:00 106/56 11/01/19 04:00 87 11/01/19 03:30 93 22 120/55 (76) 100 11/01/19 03:00 88 23 107/51 (69) 99 11/01/19 03:00 88/55 11/01/19 02:30 96 16 116/56 (76) 98 11/01/19 02:00 88 24 103/50 (67) 99 11/01/19 02:00 103/50 11/01/19 01:30 86 24 118/57 (77) 100 11/01/19 01:28 72 24 90 11/01/19 01:00 90 19 103/52 (69) 99 11/01/19 01:00 103/52 11/01/19 00:30 97 32 121/56 (77) 100 11/01/19 00:00 99.9 89 21 96/52 (67) 99 11/01/19 00:00 96/52 11/01/19 00:00 Mechanical Ventilator 10/31/19 23:58 97/48 10/31/19 23:30 93 20 101/50 (67) 99 10/31/19 23:26 92 21 90 10/31/19 23:00 95/48 10/31/19 23:00 86 20 95/48 (64) 100 10/31/19 22:30 90 22 96/52 (67) 99 10/31/19 22:00 95 27 118/66 (83) 100 10/31/19 21:30 87 22 103/52 (69) 100 10/31/19 21:20 87 22 90 10/31/19 21:00 90 21 102/55 (71) 100 10/31/19 21:00 101/54 Height (Feet): 6 Height (Inches): 1.00 Weight (Pounds): 151 Objective Gen: NAD. intubated. sedated HEENT: ETT. CV: S1+S2 Resp: coarse. regular. equal chest rise. Abd: soft. G tube. nondistended. Skin: warm. dry. Neuro: sedated Microbiology Date/Time Source Procedure Growth Status 10/30/19 09:45 Blood Blood Culture - Preliminary Strep Species, Gamma-Hemolytic Resulted 10/30/19 09:20 Blood Blood Culture - Preliminary NO GROWTH AFTER 24 HOURS Resulted 10/30/19 23:30 Sputum Gram Stain - Final Resulted 10/30/19 23:30 Sputum Sputum Culture Pending Resulted 10/30/19 15:39 Nasal Nares MRSA Culture - Final NO METHICILLIN RESISTANT STAPH AUREUS... Complete 10/30/19 09:20 Nasopharynx Coronavirus COVID-19 PCR (PAL) - Final Complete 10/30/19 08:45 Nasal Nares - Final Complete 10/30/19 08:45 Nasal Nares - Final Complete 10/30/19 10:45 Urine,Clean Catch Urine Culture - Final NO GROWTH AFTER 48 HOURS Complete 10/30/19 15:39 Rectum VRE Culture - Final Enterococcus Faecalis - Vre Enterococcus Faecium - Vre Complete 10/30/19 15:39 Rectum - Final NO CARBAPENEM-RESISTANT ENTEROBACTERI... Complete Laboratory Tests Test 11/01/19 04:00 11/01/19 07:40 11/01/19 15:15 White Blood Count 18.8 K/UL (4.8-10.8) H Red Blood Count 2.74 M/UL (4.70-6.10) L Hemoglobin 7.6 G/DL (14.2-18.0) L Hematocrit 23.8 % (42.0-52.0) L Mean Corpuscular Volume 87 FL (80-99) Mean Corpuscular Hemoglobin 27.7 PG (27.0-31.0) Mean Corpuscular Hemoglobin Concent 31.8 G/DL (32.0-36.0) L Red Cell Distribution Width 16.8 % (11.6-14.8) H Platelet Count 231 K/UL (150-450) Mean Platelet Volume 5.5 FL (6.5-10.1) L Neutrophils (%) (Auto) % (45.0-75.0) Lymphocytes (%) (Auto) % (20.0-45.0) Monocytes (%) (Auto) % (1.0-10.0) Eosinophils (%) (Auto) % (0.0-3.0) Basophils (%) (Auto) % (0.0-2.0) Differential Total Cells Counted 100 Neutrophils % (Manual) 85 % (45-75) H Lymphocytes % (Manual) 10 % (20-45) L Monocytes % (Manual) 5 % (1-10) Eosinophils % (Manual) 0 % (0-3) Basophils % (Manual) 0 % (0-2) Band Neutrophils 0 % (0-8) Platelet Estimate Adequate Platelet Morphology Normal Anisocytosis 1+ Sodium Level 141 MMOL/L (136-145) Potassium Level 3.4 MMOL/L (3.5-5.1) L Chloride Level 108 MMOL/L (98-107) H Carbon Dioxide Level 23 MMOL/L (21-32) Anion Gap 10 mmol/L (5-15) Blood Urea Nitrogen 14 mg/dL (7-18) Creatinine 1.0 MG/DL (0.55-1.30) Estimat Glomerular Filtration Rate > 60 mL/min (>60) Glucose Level 89 MG/DL (74-106) Calcium Level 7.9 MG/DL (8.5-10.1) L Phosphorus Level 1.6 MG/DL (2.5-4.9) L Magnesium Level 2.3 MG/DL (1.8-2.4) Total Bilirubin 0.3 MG/DL (0.2-1.0) Aspartate Amino Transf (AST/SGOT) 66 U/L (15-37) H Alanine Aminotransferase (ALT/SGPT) 81 U/L (12-78) H Alkaline Phosphatase 121 U/L (46-116) H Total Protein 5.3 G/DL (6.4-8.2) L Albumin 1.8 G/DL (3.4-5.0) L Globulin 3.5 g/dL Albumin/Globulin Ratio 0.5 (1.0-2.7) L Arterial Blood pH 7.437 (7.350-7.450) Arterial Blood Partial Pressure CO2 30.8 mmHg (35.0-45.0) L Arterial Blood Partial Pressure O2 112.0 mmHg (75.0-100.0) H Arterial Blood HCO3 20.3 mmol/L (22.0-26.0) L Arterial Blood Oxygen Saturation 98.3 % (95-100) Arterial Blood Base Excess -3.4 (-2-2) L Ty Test Positive Troponin I 0.000 ng/mL (0.000-0.056) Current Medications Medications (Trade) Dose Ordered Sig/Tasha Route PRN Reason Start Time Stop Time Status Last Admin Dose Admin Acetaminophen (Tylenol) 650 mg Q4H PRN ORAL fever 10/30/19 11:15 11/29/19 11:14 Albuterol/ Ipratropium (Albuterol/ Ipratropium) 3 ml Q4H PRN HHN Shortness of Breath 10/30/19 11:15 11/04/19 11:14 Amikacin Sulfate 1000 mg/Sodium Chloride 114 ml @ 114 mls/hr Q36H IV 11/02/19 11:00 11/09/19 10:59 Amiodarone HCl (Cordarone) 200 mg DAILY PEG 10/31/19 09:00 01/29/20 08:59 Chlorhexidine Gluconate (Megan-Hex 2%) 1 applic DAILY@2000 TOPIC 11/01/19 20:00 01/30/20 19:59 Ertapenem 1 gm/ Sodium Chloride 55 ml @ 110 mls/hr Q24H IV 10/31/19 00:00 11/05/19 00:00 10/31/19 23:59 Heparin Sodium (Porcine) (Heparin 5000 units/ml) 5,000 units EVERY 12 HOURS SUBQ 10/30/19 23:00 12/14/19 22:59 10/31/19 00:40 Levothyroxine Sodium (Synthroid) 50 mcg DAILY@0630 GT 10/31/19 06:30 11/30/19 06:29 11/01/19 05:31 Lorazepam (Ativan 2mg/ml 1ml) 2 mg Q2H PRN IV For Anxiety 10/30/19 11:15 11/06/19 11:14 11/01/19 15:22 Morphine Sulfate (Morphine Sulfate) 4 mg Q4H PRN IVP Severe Pain (Pain Scale 7-10) 10/30/19 11:15 11/06/19 11:14 10/30/19 23:48 Norepinephrine Bitartrate 4 mg/ Dextrose 254 ml @ 0 mls/hr Q24H IV 10/30/19 22:00 11/29/19 21:59 11/01/19 13:39 Ondansetron HCl (Zofran) 4 mg Q6H PRN IVP Nausea & Vomiting 10/30/19 11:15 11/29/19 11:14 Oseltamivir Phosphate (Tamiflu) 30 mg BID ORAL 10/31/19 11:00 11/05/19 10:59 11/01/19 17:05 Pantoprazole (Protonix) 40 mg DAILY IVP 10/31/19 09:00 11/30/19 08:59 11/01/19 08:52 Polyethylene Glycol (Miralax) 17 gm DAILYPRN PRN ORAL Constipation 10/30/19 11:15 11/29/19 11:14 Quetiapine Fumarate (SEROqueL) 100 mg Q12HR GT 10/30/19 23:00 12/14/19 22:59 11/01/19 08:52 Sodium Chloride 1,000 ml @ 100 mls/hr Q10H IVLG 10/30/19 11:10 11/29/19 11:09 11/01/19 13:13 Vancomycin HCl (Vanco rx to dose) 1 ea DAILY PRN MISC . 10/30/19 22:00 11/29/19 21:59 Vancomycin HCl 500 mg/Dextrose 110 ml @ 110 mls/hr Q12H IVPB 10/31/19 16:00 11/05/19 15:59 11/01/19 17:05 Yifan Rivera MD Nov 01, 2019 20:34
[2019-11-01] MEDS: Dyna-Hex 2% Top Sol 2oz TOPIC SCH (20:42)
--- NOTE | 2019-11-01 21:55 | NUR ---
NURSE NOTES: LE; STARTED 1 UNIT PRBC ([id number]) BLOOD TRANSFUSION AFTER VERIFIED 2 NURSES, WILL CONTINUE TO MONITOR.
--- NOTE | 2019-11-01 22:10 | NUR ---
NURSE NOTES: LE; NO SIDE REACTION NOTED AT THIS TIME.
--- NOTE | 2019-11-01 22:41 | Internal Med Progress Note ---
Subjective Physician Name Danny Stark Attending Physician Danny Stark MD Current Medications Medications (Trade) Dose Ordered Sig/Tasha Route PRN Reason Start Time Stop Time Status Last Admin Dose Admin Acetaminophen (Tylenol) 650 mg Q4H PRN ORAL fever 10/30/19 11:15 11/29/19 11:14 Albuterol/ Ipratropium (Albuterol/ Ipratropium) 3 ml Q4H PRN HHN Shortness of Breath 10/30/19 11:15 11/04/19 11:14 Amikacin Sulfate 1000 mg/Sodium Chloride 114 ml @ 114 mls/hr Q36H IV 11/02/19 11:00 11/09/19 10:59 Amiodarone HCl (Cordarone) 200 mg DAILY PEG 10/31/19 09:00 01/29/20 08:59 Chlorhexidine Gluconate (Megan-Hex 2%) 1 applic DAILY@2000 TOPIC 11/01/19 20:00 01/30/20 19:59 11/01/19 20:42 Ertapenem 1 gm/ Sodium Chloride 55 ml @ 110 mls/hr Q24H IV 10/31/19 00:00 11/05/19 00:00 10/31/19 23:59 Heparin Sodium (Porcine) (Heparin 5000 units/ml) 5,000 units EVERY 12 HOURS SUBQ 10/30/19 23:00 12/14/19 22:59 10/31/19 00:40 Levothyroxine Sodium (Synthroid) 50 mcg DAILY@0630 GT 10/31/19 06:30 11/30/19 06:29 11/01/19 05:31 Lorazepam (Ativan 2mg/ml 1ml) 2 mg Q2H PRN IV For Anxiety 10/30/19 11:15 11/06/19 11:14 11/01/19 15:22 Morphine Sulfate (Morphine Sulfate) 4 mg Q4H PRN IVP Severe Pain (Pain Scale 7-10) 10/30/19 11:15 11/06/19 11:14 10/30/19 23:48 Norepinephrine Bitartrate 4 mg/ Dextrose 254 ml @ 0 mls/hr Q24H IV 10/30/19 22:00 11/29/19 21:59 11/01/19 13:39 Ondansetron HCl (Zofran) 4 mg Q6H PRN IVP Nausea & Vomiting 10/30/19 11:15 11/29/19 11:14 Oseltamivir Phosphate (Tamiflu) 30 mg BID ORAL 10/31/19 11:00 11/05/19 10:59 11/01/19 17:05 Pantoprazole (Protonix) 40 mg DAILY IVP 10/31/19 09:00 11/30/19 08:59 11/01/19 08:52 Polyethylene Glycol (Miralax) 17 gm DAILYPRN PRN ORAL Constipation 10/30/19 11:15 11/29/19 11:14 Quetiapine Fumarate (SEROqueL) 100 mg Q12HR GT 10/30/19 23:00 12/14/19 22:59 11/01/19 20:42 Sodium Chloride 1,000 ml @ 100 mls/hr Q10H IVLG 10/30/19 11:10 11/29/19 11:09 11/01/19 13:13 Vancomycin HCl (Vanco rx to dose) 1 ea DAILY PRN MISC Per rx protocol 11/01/19 20:45 12/01/19 20:44 Vancomycin HCl 500 mg/Dextrose 110 ml @ 110 mls/hr Q12H IVPB 10/31/19 16:00 11/05/19 15:59 11/01/19 17:05 Allergies: Coded Allergies: No Known Allergies (Unverified , 10/30/19) Subjective intubated, awake, responsive, on vent in ICU. Objective Last Vital Signs Date Time Temp Pulse Resp B/P (MAP) Pulse Ox O2 Delivery O2 Flow Rate FiO2 11/01/19 21:44 80 20 40 11/01/19 19:00 93/47 (62) 94 11/01/19 16:00 Mechanical Ventilator 11/01/19 16:00 98.8 10/30/19 22:00 15.0 Laboratory Tests Test 11/01/19 04:00 11/01/19 07:40 11/01/19 15:15 White Blood Count 18.8 K/UL (4.8-10.8) H Red Blood Count 2.74 M/UL (4.70-6.10) L Hemoglobin 7.6 G/DL (14.2-18.0) L Hematocrit 23.8 % (42.0-52.0) L Mean Corpuscular Volume 87 FL (80-99) Mean Corpuscular Hemoglobin 27.7 PG (27.0-31.0) Mean Corpuscular Hemoglobin Concent 31.8 G/DL (32.0-36.0) L Red Cell Distribution Width 16.8 % (11.6-14.8) H Platelet Count 231 K/UL (150-450) Mean Platelet Volume 5.5 FL (6.5-10.1) L Neutrophils (%) (Auto) % (45.0-75.0) Lymphocytes (%) (Auto) % (20.0-45.0) Monocytes (%) (Auto) % (1.0-10.0) Eosinophils (%) (Auto) % (0.0-3.0) Basophils (%) (Auto) % (0.0-2.0) Differential Total Cells Counted 100 Neutrophils % (Manual) 85 % (45-75) H Lymphocytes % (Manual) 10 % (20-45) L Monocytes % (Manual) 5 % (1-10) Eosinophils % (Manual) 0 % (0-3) Basophils % (Manual) 0 % (0-2) Band Neutrophils 0 % (0-8) Platelet Estimate Adequate Platelet Morphology Normal Anisocytosis 1+ Sodium Level 141 MMOL/L (136-145) Potassium Level 3.4 MMOL/L (3.5-5.1) L Chloride Level 108 MMOL/L (98-107) H Carbon Dioxide Level 23 MMOL/L (21-32) Anion Gap 10 mmol/L (5-15) Blood Urea Nitrogen 14 mg/dL (7-18) Creatinine 1.0 MG/DL (0.55-1.30) Estimat Glomerular Filtration Rate > 60 mL/min (>60) Glucose Level 89 MG/DL (74-106) Calcium Level 7.9 MG/DL (8.5-10.1) L Phosphorus Level 1.6 MG/DL (2.5-4.9) L Magnesium Level 2.3 MG/DL (1.8-2.4) Total Bilirubin 0.3 MG/DL (0.2-1.0) Aspartate Amino Transf (AST/SGOT) 66 U/L (15-37) H Alanine Aminotransferase (ALT/SGPT) 81 U/L (12-78) H Alkaline Phosphatase 121 U/L (46-116) H Total Protein 5.3 G/DL (6.4-8.2) L Albumin 1.8 G/DL (3.4-5.0) L Globulin 3.5 g/dL Albumin/Globulin Ratio 0.5 (1.0-2.7) L Arterial Blood pH 7.437 (7.350-7.450) Arterial Blood Partial Pressure CO2 30.8 mmHg (35.0-45.0) L Arterial Blood Partial Pressure O2 112.0 mmHg (75.0-100.0) H Arterial Blood HCO3 20.3 mmol/L (22.0-26.0) L Arterial Blood Oxygen Saturation 98.3 % (95-100) Arterial Blood Base Excess -3.4 (-2-2) L Ty Test Positive Troponin I 0.000 ng/mL (0.000-0.056) Microbiology Date/Time Source Procedure Growth Status 10/30/19 09:45 Blood Blood Culture - Preliminary Strep Species, Gamma-Hemolytic Resulted 10/30/19 09:20 Blood Blood Culture - Preliminary NO GROWTH AFTER 24 HOURS Resulted 10/30/19 23:30 Sputum Gram Stain - Final Resulted 10/30/19 23:30 Sputum Sputum Culture Pending Resulted 10/30/19 15:39 Nasal Nares MRSA Culture - Final NO METHICILLIN RESISTANT STAPH AUREUS... Complete 10/30/19 09:20 Nasopharynx Coronavirus COVID-19 PCR (PAL) - Final Complete 10/30/19 08:45 Nasal Nares - Final Complete 10/30/19 08:45 Nasal Nares - Final Complete 10/30/19 10:45 Urine,Clean Catch Urine Culture - Final NO GROWTH AFTER 48 HOURS Complete 10/30/19 15:39 Rectum VRE Culture - Final Enterococcus Faecalis - Vre Enterococcus Faecium - Vre Complete 10/30/19 15:39 Rectum - Final NO CARBAPENEM-RESISTANT ENTEROBACTERI... Complete Intake and Output 10/31/19 11/01/19 19:00 07:00 Intake Total 1644.3813 ml 1512.2 ml Output Total 625 ml 650 ml Balance 1019.3813 ml 862.2 ml Intake Free Water 20 ml 100 ml IV Total 1564.3813 ml 1322.2 ml Tube Feeding 60 ml 90 ml Output Urine Total 625 ml 650 ml Objective General: intubated, awake, responsive. HEENT: NCAT, sclera anicteric, PERRL, EOMI, ET tube. Neck: Supple, no significant jugular venous distention, Lungs: Mechanical breath sound, decrease air at bases, no Wheeze or Rales. Heart: Regular rate and rhythm, normal S1/S2, no murmurs. Abdomen: soft, nontender, nondistended. Normoactive bowel sound, + PEG, Extremities: No Cyanosis , clubbing or edema. Neuro: A&O x 2, Able to move all extremities Skin: warm, no rash. Assessment/Plan Status Narrative 1. Acute Hypoxemic Respiratory failure. 2. Pneumonia. 3. Esophageal cancer. 4. Diabetes type 2. 5. Hypertension. 6. Hypercholesterolemia. 7. Atrial fibrillation. 8. Hypothyroidism. 9. Dysphagia. 10. History of prostate cancer. 11. Influenza A positive. 12. Septic shock. 13. Acute UTI. TREATMENT: 1. Pneumonia/respiratory failure. A Pulmonary consultation has been obtained with Dr. Jackie Kaiser. The patient has been started empirically on intravenous vancomycin and ertapenem. The patient is also receiving amikacin. An Infectious Disease consultation has been obtained with Dr. Yifan Rivera. We will follow recommendations of Infectious Disease and Pulmonary. A sputum culture is pending. 2. Esophageal cancer. 3. Diabetes type 2. A NovoLog sliding scale has been instituted. 4. Hypertension. The patient is currently hypotensive and probable sepsis. 5. Hypercholesterolemia. Continue atorvastatin as above. 6. Atrial fibrillation. Continue amiodarone as above. 7. Hypothyroidism. Continue levothyroxine as above. 8. Dysphagia, status post PEG placement. 9. History of prostate cancer. start Tube feeding @ 10 cc/hr COVID 19 test negative, Abx: Vanco IV, Ertapenem IV, Amikacin DVT Prophylaxis: Heparin SQ On Tamiflu. F/U with labs and cultures. Danny Stark MD Nov 01, 2019 22:41
[2019-11-01] MEDS: Ertapenem 1 GM in NS 55 ML IV SCH (23:54)
[2019-11-02] VITALS (39 sets, daily range): BP systolic 95–152; BP diastolic 48–91
--- NOTE | 2019-11-02 00:45 | NUR ---
NURSE NOTES: FINISHED BLOOD TRANSFUSION, NO SIDE REACTION NOTED AT THIS TIME.
--- NOTE | 2019-11-02 02:34 | NUR ---
NURSE NOTES: PATIENT ASLEEP STATUS, NO PAIN OR SOB NOTED AT THIS TIME.
[2019-11-02] MEDS: Vancomycin 500mg/D5W 110ml IVPB SCH ×4 (04:11→05:26)
--- NOTE | 2019-11-02 04:40 | NUR ---
NURSE NOTES: LE; MORNING CARE AND ORAL CARE WAS DONE.
[2019-11-02 05:17] LABS: BASOPHILS % (AUTO) 0.6 % (0.0-2.0); EOSINOPHILS % (AUTO) 0.8 % (0.0-3.0); HEMATOCRIT 27.1 % (42.0-52.0); HEMOGLOBIN 8.8 G/DL (14.2-18.0); LYMPHOCYTES % (AUTO) 8.7 % (20.0-45.0); MEAN CORPUSCULAR VOLUME 84 FL (80-99); MONOCYTES % (AUTO) 6.9 % (1.0-10.0); NEUTROPHILS % (AUTO) 83.1 % (45.0-75.0); PLATELET COUNT 212 K/UL (150-450); RED BLOOD COUNT 3.21 M/UL (4.70-6.10); RED CELL DISTRIBUTION WIDTH 15.6 % (11.6-14.8); WHITE BLOOD COUNT 14.6 K/UL (4.8-10.8)
[2019-11-02 05:26] LABS: ALANINE AMINOTRANSFERASE 71 U/L (12-78); ALBUMIN 1.7 G/DL (3.4-5.0); ALBUMIN/GLOBULIN RATIO 0.5 (1.0-2.7); ALKALINE PHOSPHATASE 123 U/L (46-116); ANION GAP 11 mmol/L (5-15); ASPARTATE AMINO TRANSFERASE 64 U/L (15-37); BILIRUBIN,TOTAL 0.4 MG/DL (0.2-1.0); BLOOD UREA NITROGEN 9 mg/dL (7-18); CALCIUM 7.8 MG/DL (8.5-10.1); CARBON DIOXIDE 22 MMOL/L (21-32); CHLORIDE 110 MMOL/L (98-107); CREATININE 0.9 MG/DL (0.55-1.30); PHOSPHORUS 2.4 MG/DL (2.5-4.9); POTASSIUM 3.2 MMOL/L (3.5-5.1); SODIUM 143 MMOL/L (136-145)
--- NOTE | 2019-11-02 06:25 | Pulmonolgy Critical Care Note ---
Critical Care - Asmt/Plan Problems: (1) Septic shock (2) Enterococcal bacteremia (3) Nosocomial pneumonia (4) COPD (chronic obstructive pulmonary disease) (5) Psychosis (6) Hypothyroidism (7) Atrial fibrillation (8) Severe anemia Respiratory: monitor respiratory rate, adjust FIO2 Cardiac: continue pressors, continue to monitor HR/BP Renal: F/U I&O, keep IV fluid Infectious Disease: check cultures, continue antibiotics, other Gastrointestinal: continue feedings/current rate, hold feedings Endocrine: check TSH Hematologic: monitor H/H, transfuse if hgb<8.5 Neurologic: PRN Morphine, keep patient comfortable Time Spent (Minutes): 40 Notes Reviewed: stitch marker Discussed with: nurses, consultants, outpatient case managerregional loss prevention manager - Objective Last 24 Hour Vital Signs Date Time Temp Pulse Resp B/P (MAP) Pulse Ox O2 Delivery O2 Flow Rate FiO2 11/02/19 06:00 40 11/02/19 06:00 120/63 11/02/19 06:00 84 23 120/63 (82) 94 84 11/02/19 05:30 90 20 131/70 (90) 98 11/02/19 05:21 76 21 40 11/02/19 05:00 128/58 11/02/19 05:00 77 21 128/58 (81) 95 11/02/19 04:30 76 21 138/60 (86) 94 11/02/19 04:00 Mechanical Ventilator 11/02/19 04:00 129/60 11/02/19 04:00 98.4 75 20 129/60 (83) 94 11/02/19 04:00 77 11/02/19 03:39 80 21 40 11/02/19 03:30 79 20 117/56 (76) 92 11/02/19 03:00 82 23 119/56 (77) 93 11/02/19 03:00 119/56 11/02/19 02:30 81 23 129/56 (80) 90 11/02/19 02:00 77 19 125/60 (81) 94 11/02/19 02:00 125/60 11/02/19 01:43 80 23 40 11/02/19 01:30 84 21 123/59 (80) 93 11/02/19 01:00 87 19 129/89 (102) 91 11/02/19 01:00 129/89 11/02/19 00:30 77 20 113/56 (75) 93 11/02/19 00:00 98.3 78 21 112/54 (73) 94 11/02/19 00:00 40 11/02/19 00:00 112/54 11/02/19 00:00 Mechanical Ventilator 11/01/19 23:54 109/54 11/01/19 23:41 89 21 40 11/01/19 23:30 79 20 98/48 (65) 92 11/01/19 23:11 76 11/01/19 23:00 78 20 110/50 (70) 94 11/01/19 23:00 110/50 11/01/19 22:30 72 20 120/53 (75) 94 11/01/19 22:00 74 21 106/49 (68) 93 11/01/19 22:00 106/49 11/01/19 21:44 80 20 40 11/01/19 21:30 79 20 86/45 (59) 93 11/01/19 21:27 80 19 90/45 (60) 92 11/01/19 21:00 76 19 96/45 (62) 94 11/01/19 21:00 96/45 11/01/19 20:30 74 18 116/51 (72) 94 11/01/19 20:00 98.5 75 18 95/48 (64) 93 11/01/19 20:00 40 11/01/19 20:00 95/48 11/01/19 20:00 Mechanical Ventilator 11/01/19 19:44 76 11/01/19 19:39 78 16 40 11/01/19 19:30 77 18 97/45 (62) 93 11/01/19 19:00 77 18 93/47 (62) 94 11/01/19 18:30 78 18 107/50 (69) 93 11/01/19 18:30 107/50 11/01/19 18:00 77 17 100/49 (66) 94 11/01/19 17:30 76 17 113/56 (75) 95 11/01/19 17:00 87/55 11/01/19 17:00 75 16 87/55 (66) 95 11/01/19 16:42 78 16 40 11/01/19 16:30 77 16 93/49 (64) 94 11/01/19 16:00 Mechanical Ventilator 11/01/19 16:00 98.8 82 16 91/45 (60) 94 11/01/19 16:00 78 11/01/19 16:00 50 11/01/19 15:30 82 18 105/49 (67) 97 11/01/19 15:30 105/49 11/01/19 15:00 92 21 123/57 (79) 96 11/01/19 14:34 92 20 50 11/01/19 14:30 90 20 114/73 (87) 96 11/01/19 14:00 94 22 147/73 (97) 95 11/01/19 13:39 111/60 11/01/19 13:30 88 18 111/60 (77) 95 11/01/19 13:10 92 19 50 11/01/19 13:00 88 17 103/60 (74) 95 11/01/19 12:30 90 17 124/55 (78) 95 11/01/19 12:00 Mechanical Ventilator 11/01/19 12:00 99.1 90 17 103/62 (76) 95 11/01/19 12:00 90 11/01/19 12:00 50 11/01/19 11:30 93 19 109/57 (74) 94 11/01/19 11:00 91 18 105/62 (76) 94 11/01/19 10:37 97 21 50 11/01/19 10:30 91 18 107/53 (71) 95 11/01/19 10:00 91 18 97/54 (68) 92 11/01/19 09:30 95 19 95/57 (70) 93 11/01/19 09:12 97 22 50 11/01/19 09:00 90 25 98/54 (69) 100 11/01/19 08:30 93 26 102/56 (71) 99 11/01/19 08:00 Mechanical Ventilator 11/01/19 08:00 89 11/01/19 08:00 98.8 95 21 120/63 (82) 99 11/01/19 08:00 90 11/01/19 07:30 100 23 110/71 (84) 98 11/01/19 07:27 87 18 90 11/01/19 07:00 93 21 94/54 (67) 100 11/01/19 06:57 100/52 4/3/20 06:35 95 22 11/01/19 06:30 95 23 96/51 (66) 99 Status: sedated Condition: critical Neck: full ROM Lungs: clear Heart: HR/BP stable Abdomen: soft, active bowel sounds, feeding tube Extremities: no C/C/E Micro: Microbiology Date/Time Source Procedure Growth Status 10/30/19 09:45 Blood Blood Culture - Preliminary Enterococcus Faecalis Resulted 10/30/19 09:20 Blood Blood Culture - Preliminary NO GROWTH AFTER 48 HOURS Resulted 10/30/19 23:30 Sputum Gram Stain - Final Resulted 10/30/19 23:30 Sputum Culture - Preliminary Yeast Species Resulted 10/30/19 15:39 Nasal Nares MRSA Culture - Final NO METHICILLIN RESISTANT STAPH AUREUS... Complete 10/30/19 09:20 Nasopharynx Coronavirus COVID-19 PCR (PAL) - Final Complete 10/30/19 08:45 Nasal Nares - Final Complete 10/30/19 08:45 Nasal Nares - Final Complete 10/30/19 10:45 Urine,Clean Catch Urine Culture - Final NO GROWTH AFTER 48 HOURS Complete 10/30/19 15:39 Rectum VRE Culture - Final Enterococcus Faecalis - Vre Enterococcus Faecium - Vre Complete 10/30/19 15:39 Rectum - Final NO CARBAPENEM-RESISTANT ENTEROBACTERI... Complete Critical Care - Subjective ROS Limited/Unobtainable: No Condition: critical EKG Rhythm: Sinus Rhythm FI02: 40 Vent Support Breath Rate: 16 Vent Support Mode: AC Vent Tidal Volume: 600 Sputum Amount: Small PEEP: 0.0 PIP: 27 Tube Feeding Amount: 0 I&O: Intake and Output 11/01/19 11/02/19 19:00 07:00 Intake Total 1846.9468 ml 1736.46 ml Output Total 1145 ml 680 ml Balance 701.9468 ml 1056.46 ml Intake Free Water 200 ml IV Total 1526.9468 ml 1256.46 ml Tube Feeding 120 ml 90 ml Blood Product 250 ml Other 140 ml Output Urine Total 1145 ml 680 ml # Bowel Movements 1 1 ET-Tube: 7.5 ET Position: 23 Labs: Laboratory Tests Test 11/01/19 07:40 11/01/19 15:15 11/02/19 04:25 Arterial Blood pH 7.437 (7.350-7.450) Arterial Blood Partial Pressure CO2 30.8 mmHg (35.0-45.0) L Arterial Blood Partial Pressure O2 112.0 mmHg (75.0-100.0) H Arterial Blood HCO3 20.3 mmol/L (22.0-26.0) L Arterial Blood Oxygen Saturation 98.3 % (95-100) Arterial Blood Base Excess -3.4 (-2-2) L Ty Test Positive Troponin I 0.000 ng/mL (0.000-0.056) 0.000 ng/mL (0.000-0.056) White Blood Count 14.6 K/UL (4.8-10.8) H Red Blood Count 3.21 M/UL (4.70-6.10) L Hemoglobin 8.8 G/DL (14.2-18.0) L Hematocrit 27.1 % (42.0-52.0) L Mean Corpuscular Volume 84 FL (80-99) Mean Corpuscular Hemoglobin 27.5 PG (27.0-31.0) Mean Corpuscular Hemoglobin Concent 32.6 G/DL (32.0-36.0) Red Cell Distribution Width 15.6 % (11.6-14.8) H Platelet Count 212 K/UL (150-450) Mean Platelet Volume 5.5 FL (6.5-10.1) L Neutrophils (%) (Auto) 83.1 % (45.0-75.0) H Lymphocytes (%) (Auto) 8.7 % (20.0-45.0) L Monocytes (%) (Auto) 6.9 % (1.0-10.0) Eosinophils (%) (Auto) 0.8 % (0.0-3.0) Basophils (%) (Auto) 0.6 % (0.0-2.0) Sodium Level 143 MMOL/L (136-145) Potassium Level 3.2 MMOL/L (3.5-5.1) L Chloride Level 110 MMOL/L (98-107) H Carbon Dioxide Level 22 MMOL/L (21-32) Anion Gap 11 mmol/L (5-15) Blood Urea Nitrogen 9 mg/dL (7-18) Creatinine 0.9 MG/DL (0.55-1.30) Estimat Glomerular Filtration Rate > 60 mL/min (>60) Glucose Level 99 MG/DL (74-106) Calcium Level 7.8 MG/DL (8.5-10.1) L Phosphorus Level 2.4 MG/DL (2.5-4.9) L Magnesium Level 2.0 MG/DL (1.8-2.4) Total Bilirubin 0.4 MG/DL (0.2-1.0) Aspartate Amino Transf (AST/SGOT) 64 U/L (15-37) H Alanine Aminotransferase (ALT/SGPT) 71 U/L (12-78) Alkaline Phosphatase 123 U/L (46-116) H Pro-B-Type Natriuretic Peptide 2509 pg/mL (0-125) H Total Protein 5.4 G/DL (6.4-8.2) L Albumin 1.7 G/DL (3.4-5.0) L Globulin 3.7 g/dL Albumin/Globulin Ratio 0.5 (1.0-2.7) L Vancomycin Level Trough 12.0 ug/mL (5.0-12.0) Jackie Kaiser MD Nov 02, 2019 06:25
--- NOTE | 2019-11-02 06:41 | NUR ---
NURSE NOTES: SEEN THE PATIENT BY DR. EWING, MADE NEW ORDER, WILL FOLLOW UP.
--- NOTE | 2019-11-02 07:19 | NUR ---
HAND-OFF: Report given to VENKAT LANDA.
--- NOTE | 2019-11-02 07:20 | NUR ---
NURSE NOTES: Received report from VENKAT Henriquez. Patient awake and responsive to verbal. ETT 7.5/23cm at lip line with vent setting AC 16, VT 600 and FiO2 40%. Gtube intact and running with Jevity 1.2 10ml/hr. Patel intact and draining with yellow color urine. Right femoral TLC intact and running with Levophed @ 4mcg/min and NS @ 100ml/hr. Bilateral soft wrist bands restraints on. Both hands are warm to touch. Skin intact and clean on restraints site. Kept dry, clean, comfortable and HOB>30. Will continue plan of care.
[2019-11-02] MEDS: Pantoprazole Inj IVP SCH (08:32)
[2019-11-02] MEDS: Amiodarone 200mg tab PEG SCH (08:32)
[2019-11-02] MEDS: Heparin 5000 units/ml inj SUBQ SCH ×2 (08:34→20:29)
[2019-11-02] MEDS: Oseltamivir 75mg cap ORAL SCH ×2 (09:01→17:43)
--- NOTE | 2019-11-02 10:16 | Diagnostic Imaging Report ---
EXAM: XR Chest, 1 View CLINICAL HISTORY: DYSPNEA TECHNIQUE: Frontal view of the chest. COMPARISON: Chest x-rays dated 11/01/19 FINDINGS: Lungs: No significant interval change in interstitial and alveolar airspace opacities in bilateral lungs. Pleural space: Unremarkable. The costophrenic angles are sharp. No visible pneumothorax. Heart: Cardiomegaly, unchanged. Mediastinum: Unremarkable. Bones/joints: Unremarkable. Tubes, lines and devices: Stable positioning of a Port-A-Cath in the right chest wall with catheter tip at the SVC/right atrial junction. Stable positioning of the endotracheal tube. Telemetry leads overlie the thorax. IMPRESSION: 1. No significant interval change in interstitial and alveolar airspace opacities in bilateral lungs, which may represent pulmonary edema versus pneumonia. 2. Cardiomegaly, unchanged.
--- NOTE | 2019-11-02 10:23 | NUR ---
PCXR COMPLETED 0900HRS. NF
--- NOTE | 2019-11-02 10:35 | NUR ---
NURSE NOTES: Informed Dr. Kaiser of pt's ABG and K. New orders read back and confirmed. Will continue to monitor.
--- NOTE | 2019-11-02 11:00 | NUR ---
NURSE NOTES: Hold Levophed at this time. Will continue to monitor closely.
[2019-11-02] MEDS: Amikacin 1,000 MG in NS 110 ML IV SCH (11:06)
--- NOTE | 2019-11-02 12:30 | NUR ---
NURSE NOTES: Oral and trach suction given. Repositioned patient.
--- NOTE | 2019-11-02 12:36 | Infectious Diseases Prog Note ---
Assessment/Plan Assessment/Plan A: Afebrile Leukocytosis, neutrophil predominant Septic shock PNA Influenza A Probable superimposed bacterial PNA SARS CoV PCR negative CXR: Bilateral mostly nodular mostly interstitial disease, as described. This could represent interstitial pneumonia or edema, among many other possibilities. However, given the nodular appearance and the presence of an infusion catheter the possibility of nodular metastatic disease should also be considered. Possible UTI UA 10-15 WBC bacteremia BCx:: enterococcus ( final : P ) QTc 552 Afib COPD Hypothyroid Dyslipidemia HTN DM Anemia CVA G tube, h/o abscess complication head and neck cancer Plan: add IV Zyvox #1 ertapenem, amikacin # 3 / DC vanc #3 Tamiflu #2/5. monitor temp and CBC monitor resp status droplet isolation f/u bcx f/u UCx f/u sputum cx DW RN Thank you for this consult. [facility] Will continue to follow the patient with you. Subjective Allergies: Coded Allergies: No Known Allergies (Unverified , 10/30/19) Subjective pt in ICU afebrile Objective Vital Signs Last 24 Hour Vital Signs Date Time Temp Pulse Resp B/P (MAP) Pulse Ox O2 Delivery O2 Flow Rate FiO2 11/02/19 12:00 Mechanical Ventilator 11/02/19 11:20 94 28 40 11/02/19 11:00 123/55 11/02/19 10:00 83 20 119/56 (77) 93 11/02/19 10:00 119/56 11/02/19 10:00 40 11/02/19 09:30 82 18 105/60 (75) 93 11/02/19 09:00 105/48 11/02/19 09:00 77 21 105/48 (67) 94 11/02/19 08:50 78 24 40 11/02/19 08:45 105/46 11/02/19 08:30 137/60 11/02/19 08:30 68 20 137/60 (85) 95 11/02/19 08:15 138/60 11/02/19 08:00 40 11/02/19 08:00 98.3 70 21 147/61 (89) 96 11/02/19 08:00 147/61 11/02/19 08:00 Mechanical Ventilator 11/02/19 07:30 74 20 152/58 (89) 94 11/02/19 07:10 70 20 40 4/4/20 07:00 74 20 152/58 (89) 94 11/02/19 06:30 68 203 11/02/19 06:30 69 22 126/56 (79) 93 11/02/19 06:00 40 11/02/19 06:00 120/63 11/02/19 06:00 84 23 120/63 (82) 94 84 11/02/19 05:30 90 20 131/70 (90) 98 11/02/19 05:21 76 21 40 11/02/19 05:00 128/58 11/02/19 05:00 77 21 128/58 (81) 95 11/02/19 04:30 76 21 138/60 (86) 94 11/02/19 04:00 Mechanical Ventilator 11/02/19 04:00 129/60 11/02/19 04:00 98.4 75 20 129/60 (83) 94 11/02/19 04:00 77 11/02/19 03:39 80 21 40 11/02/19 03:30 79 20 117/56 (76) 92 11/02/19 03:00 82 23 119/56 (77) 93 11/02/19 03:00 119/56 11/02/19 02:30 81 23 129/56 (80) 90 11/02/19 02:00 77 19 125/60 (81) 94 11/02/19 02:00 125/60 11/02/19 01:43 80 23 40 11/02/19 01:30 84 21 123/59 (80) 93 11/02/19 01:00 87 19 129/89 (102) 91 11/02/19 01:00 129/89 11/02/19 00:30 77 20 113/56 (75) 93 11/02/19 00:00 98.3 78 21 112/54 (73) 94 11/02/19 00:00 40 11/02/19 00:00 112/54 11/02/19 00:00 Mechanical Ventilator 11/01/19 23:54 109/54 11/01/19 23:41 89 21 40 11/01/19 23:30 79 20 98/48 (65) 92 11/01/19 23:11 76 11/01/19 23:00 78 20 110/50 (70) 94 11/01/19 23:00 110/50 11/01/19 22:30 72 20 120/53 (75) 94 11/01/19 22:00 74 21 106/49 (68) 93 11/01/19 22:00 106/49 11/01/19 21:44 80 20 40 11/01/19 21:30 79 20 86/45 (59) 93 11/01/19 21:27 80 19 90/45 (60) 92 11/01/19 21:00 76 19 96/45 (62) 94 11/01/19 21:00 96/45 11/01/19 20:30 74 18 116/51 (72) 94 11/01/19 20:00 98.5 75 18 95/48 (64) 93 11/01/19 20:00 40 11/01/19 20:00 95/48 11/01/19 20:00 Mechanical Ventilator 11/01/19 19:44 76 11/01/19 19:39 78 16 40 11/01/19 19:30 77 18 97/45 (62) 93 11/01/19 19:00 77 18 93/47 (62) 94 11/01/19 18:30 78 18 107/50 (69) 93 11/01/19 18:30 107/50 11/01/19 18:00 77 17 100/49 (66) 94 11/01/19 17:30 76 17 113/56 (75) 95 11/01/19 17:00 87/55 11/01/19 17:00 75 16 87/55 (66) 95 11/01/19 16:42 78 16 40 11/01/19 16:30 77 16 93/49 (64) 94 11/01/19 16:00 Mechanical Ventilator 11/01/19 16:00 98.8 82 16 91/45 (60) 94 11/01/19 16:00 78 11/01/19 16:00 50 11/01/19 15:30 82 18 105/49 (67) 97 11/01/19 15:30 105/49 11/01/19 15:00 92 21 123/57 (79) 96 11/01/19 14:34 92 20 50 11/01/19 14:30 90 20 114/73 (87) 96 11/01/19 14:00 94 22 147/73 (97) 95 4/3/20 13:39 111/60 11/01/19 13:30 88 18 111/60 (77) 95 11/01/19 13:10 92 19 50 11/01/19 13:00 88 17 103/60 (74) 95 Height (Feet): 6 Height (Inches): 1.00 Weight (Pounds): 151 HEENT: mucous membranes moist Respiratory/Chest: normal breath sounds Cardiovascular: normal rate Abdomen: no organomegaly Microbiology Date/Time Source Procedure Growth Status 10/30/19 23:30 Sputum Gram Stain - Final Resulted 10/30/19 23:30 Sputum Culture - Preliminary Yeast Species Resulted 10/30/19 15:39 Nasal Nares MRSA Culture - Final NO METHICILLIN RESISTANT STAPH AUREUS... Complete 10/30/19 15:39 Rectum VRE Culture - Final Enterococcus Faecalis - Vre Enterococcus Faecium - Vre Complete 10/30/19 15:39 Rectum - Final NO CARBAPENEM-RESISTANT ENTEROBACTERI... Complete Laboratory Tests Test 11/01/19 15:15 11/02/19 04:25 11/02/19 05:30 11/02/19 07:21 Troponin I 0.000 ng/mL (0.000-0.056) 0.000 ng/mL (0.000-0.056) White Blood Count 14.6 K/UL (4.8-10.8) H Red Blood Count 3.21 M/UL (4.70-6.10) L Hemoglobin 8.8 G/DL (14.2-18.0) L Hematocrit 27.1 % (42.0-52.0) L Mean Corpuscular Volume 84 FL (80-99) Mean Corpuscular Hemoglobin 27.5 PG (27.0-31.0) Mean Corpuscular Hemoglobin Concent 32.6 G/DL (32.0-36.0) Red Cell Distribution Width 15.6 % (11.6-14.8) H Platelet Count 212 K/UL (150-450) Mean Platelet Volume 5.5 FL (6.5-10.1) L Neutrophils (%) (Auto) 83.1 % (45.0-75.0) H Lymphocytes (%) (Auto) 8.7 % (20.0-45.0) L Monocytes (%) (Auto) 6.9 % (1.0-10.0) Eosinophils (%) (Auto) 0.8 % (0.0-3.0) Basophils (%) (Auto) 0.6 % (0.0-2.0) Sodium Level 143 MMOL/L (136-145) Potassium Level 3.2 MMOL/L (3.5-5.1) L Chloride Level 110 MMOL/L (98-107) H Carbon Dioxide Level 22 MMOL/L (21-32) Anion Gap 11 mmol/L (5-15) Blood Urea Nitrogen 9 mg/dL (7-18) Creatinine 0.9 MG/DL (0.55-1.30) Estimat Glomerular Filtration Rate > 60 mL/min (>60) Glucose Level 99 MG/DL (74-106) Calcium Level 7.8 MG/DL (8.5-10.1) L Phosphorus Level 2.4 MG/DL (2.5-4.9) L Magnesium Level 2.0 MG/DL (1.8-2.4) Total Bilirubin 0.4 MG/DL (0.2-1.0) Aspartate Amino Transf (AST/SGOT) 64 U/L (15-37) H Alanine Aminotransferase (ALT/SGPT) 71 U/L (12-78) Alkaline Phosphatase 123 U/L (46-116) H Pro-B-Type Natriuretic Peptide 2509 pg/mL (0-125) H Total Protein 5.4 G/DL (6.4-8.2) L Albumin 1.7 G/DL (3.4-5.0) L Globulin 3.7 g/dL Albumin/Globulin Ratio 0.5 (1.0-2.7) L Vancomycin Level Trough 12.0 ug/mL (5.0-12.0) Stool Occult Blood Positive (NEGATIVE) Arterial Blood pH 7.413 (7.350-7.450) Arterial Blood Partial Pressure CO2 33.3 mmHg (35.0-45.0) L Arterial Blood Partial Pressure O2 55.7 mmHg (75.0-100.0) L Arterial Blood HCO3 20.3 mmol/L (22.0-26.0) L Arterial Blood Oxygen Saturation 88.7 % (95-100) *L Arterial Blood Base Excess -3.3 (-2-2) L Ty Test Positive Current Medications Medications (Trade) Dose Ordered Sig/Tasha Route PRN Reason Start Time Stop Time Status Last Admin Dose Admin Acetaminophen (Tylenol) 650 mg Q4H PRN ORAL fever 10/30/19 11:15 11/29/19 11:14 Albuterol/ Ipratropium (Albuterol/ Ipratropium) 3 ml Q4H PRN HHN Shortness of Breath 10/30/19 11:15 11/04/19 11:14 Amikacin Sulfate 1000 mg/Sodium Chloride 114 ml @ 114 mls/hr Q36H IV 11/02/19 11:00 11/09/19 10:59 11/02/19 11:06 Amiodarone HCl (Cordarone) 200 mg DAILY PEG 10/31/19 09:00 01/29/20 08:59 11/02/19 08:32 Chlorhexidine Gluconate (Megan-Hex 2%) 1 applic DAILY@2000 TOPIC 11/01/19 20:00 01/30/20 19:59 11/01/19 20:42 Ertapenem 1 gm/ Sodium Chloride 55 ml @ 110 mls/hr Q24H IV 10/31/19 00:00 11/05/19 00:00 11/01/19 23:54 Heparin Sodium (Porcine) (Heparin 5000 units/ml) 5,000 units EVERY 12 HOURS SUBQ 11/02/19 09:00 12/17/19 08:59 Levothyroxine Sodium (Synthroid) 50 mcg DAILY@0630 GT 10/31/19 06:30 11/30/19 06:29 11/02/19 05:27 Lorazepam (Ativan 2mg/ml 1ml) 2 mg Q2H PRN IV For Anxiety 10/30/19 11:15 11/06/19 11:14 11/01/19 15:22 Morphine Sulfate (Morphine Sulfate) 4 mg Q4H PRN IVP Severe Pain (Pain Scale 7-10) 10/30/19 11:15 11/06/19 11:14 10/30/19 23:48 Norepinephrine Bitartrate 4 mg/ Dextrose 254 ml @ 0 mls/hr Q24H IV 10/30/19 22:00 11/29/19 21:59 11/01/19 23:54 Ondansetron HCl (Zofran) 4 mg Q6H PRN IVP Nausea & Vomiting 10/30/19 11:15 11/29/19 11:14 Oseltamivir Phosphate (Tamiflu) 75 mg BID ORAL 11/02/19 09:00 11/05/19 08:59 11/02/19 09:01 Pantoprazole (Protonix) 40 mg DAILY IVP 10/31/19 09:00 11/30/19 08:59 11/02/19 08:32 Polyethylene Glycol (Miralax) 17 gm DAILYPRN PRN ORAL Constipation 10/30/19 11:15 11/29/19 11:14 Potassium Chloride 100 ml @ 50 mls/hr Q2H IVPB 11/02/19 11:00 11/02/19 14:59 11/02/19 11:06 Quetiapine Fumarate (SEROqueL) 100 mg Q12HR GT 10/30/19 23:00 12/14/19 22:59 11/02/19 08:32 Sodium Chloride 1,000 ml @ 100 mls/hr Q10H IVLG 10/30/19 11:10 11/29/19 11:09 11/02/19 08:34 Vancomycin HCl (Vanco rx to dose) 1 ea DAILY PRN MISC Per rx protocol 11/01/19 20:45 12/01/19 20:44 Vancomycin HCl 750 mg/Sodium Chloride 275 ml @ 183.333 mls/hr Q12H IVPB 11/02/19 14:00 11/07/19 13:59 Jacoby Palencia MD Nov 02, 2019 12:36
[2019-11-02] MEDS ORDERED: NS 275ml ONE (12:45)
[2019-11-02] MEDS ORDERED: Tubing IV Blood Pump IV ONE (12:45)
--- NOTE | 2019-11-02 13:07 | Infectious Diseases Prog Note ---
Assessment/Plan Assessment/Plan A: Afebrile Leukocytosis, neutrophil predominant Septic shock, sp off of pressors PNA Influenza A Probable superimposed bacterial PNA SARS CoV PCR negative CXR: Bilateral mostly nodular mostly interstitial disease, as described. This could represent interstitial pneumonia or edema, among many other possibilities. However, given the nodular appearance and the presence of an infusion catheter the possibility of nodular metastatic disease should also be considered. Possible UTI UA 10-15 WBC bacteremia BCx:: enterococcus ( final : P ) QTc 552 Afib COPD Hypothyroid Dyslipidemia HTN DM Anemia CVA G tube, h/o abscess complication head and neck cancer Plan: add IV Zyvox #1 Tamiflu #2/5. ertapenem, amikacin # 3 4/4 DC vanc #3 monitor temp and CBC monitor resp status droplet isolation f/u bcx f/u UCx f/u sputum cx DW RN Thank you for this consult. [facility] Will continue to follow the patient with you. Subjective Allergies: Coded Allergies: No Known Allergies (Unverified , 10/30/19) Subjective pt in ICU afebrile Objective Vital Signs Last 24 Hour Vital Signs Date Time Temp Pulse Resp B/P (MAP) Pulse Ox O2 Delivery O2 Flow Rate FiO2 11/02/19 12:00 Mechanical Ventilator 11/02/19 12:00 90 11/02/19 12:00 40 11/02/19 11:20 94 28 40 11/02/19 11:00 123/55 11/02/19 10:00 83 20 119/56 (77) 93 11/02/19 10:00 119/56 11/02/19 10:00 40 11/02/19 09:30 82 18 105/60 (75) 93 11/02/19 09:00 105/48 11/02/19 09:00 77 21 105/48 (67) 94 11/02/19 08:50 78 24 40 11/02/19 08:45 105/46 11/02/19 08:30 137/60 11/02/19 08:30 68 20 137/60 (85) 95 11/02/19 08:15 138/60 11/02/19 08:00 67 11/02/19 08:00 40 11/02/19 08:00 98.3 70 21 147/61 (89) 96 11/02/19 08:00 147/61 11/02/19 08:00 Mechanical Ventilator 11/02/19 07:30 74 20 152/58 (89) 94 11/02/19 07:10 70 20 40 11/02/19 07:00 74 20 152/58 (89) 94 11/02/19 06:30 68 203 11/02/19 06:30 69 22 126/56 (79) 93 11/02/19 06:00 40 11/02/19 06:00 120/63 11/02/19 06:00 84 23 120/63 (82) 94 84 11/02/19 05:30 90 20 131/70 (90) 98 11/02/19 05:21 76 21 40 11/02/19 05:00 128/58 11/02/19 05:00 77 21 128/58 (81) 95 11/02/19 04:30 76 21 138/60 (86) 94 11/02/19 04:00 Mechanical Ventilator 11/02/19 04:00 129/60 11/02/19 04:00 98.4 75 20 129/60 (83) 94 11/02/19 04:00 77 11/02/19 03:39 80 21 40 11/02/19 03:30 79 20 117/56 (76) 92 11/02/19 03:00 82 23 119/56 (77) 93 11/02/19 03:00 119/56 11/02/19 02:30 81 23 129/56 (80) 90 11/02/19 02:00 77 19 125/60 (81) 94 11/02/19 02:00 125/60 11/02/19 01:43 80 23 40 11/02/19 01:30 84 21 123/59 (80) 93 11/02/19 01:00 87 19 129/89 (102) 91 11/02/19 01:00 129/89 11/02/19 00:30 77 20 113/56 (75) 93 11/02/19 00:00 98.3 78 21 112/54 (73) 94 11/02/19 00:00 40 11/02/19 00:00 112/54 11/02/19 00:00 Mechanical Ventilator 11/01/19 23:54 109/54 11/01/19 23:41 89 21 40 11/01/19 23:30 79 20 98/48 (65) 92 11/01/19 23:11 76 11/01/19 23:00 78 20 110/50 (70) 94 11/01/19 23:00 110/50 11/01/19 22:30 72 20 120/53 (75) 94 11/01/19 22:00 74 21 106/49 (68) 93 11/01/19 22:00 106/49 11/01/19 21:44 80 20 40 11/01/19 21:30 79 20 86/45 (59) 93 11/01/19 21:27 80 19 90/45 (60) 92 11/01/19 21:00 76 19 96/45 (62) 94 11/01/19 21:00 96/45 11/01/19 20:30 74 18 116/51 (72) 94 11/01/19 20:00 98.5 75 18 95/48 (64) 93 11/01/19 20:00 40 11/01/19 20:00 95/48 11/01/19 20:00 Mechanical Ventilator 11/01/19 19:44 76 11/01/19 19:39 78 16 40 11/01/19 19:30 77 18 97/45 (62) 93 11/01/19 19:00 77 18 93/47 (62) 94 11/01/19 18:30 78 18 107/50 (69) 93 11/01/19 18:30 107/50 11/01/19 18:00 77 17 100/49 (66) 94 11/01/19 17:30 76 17 113/56 (75) 95 11/01/19 17:00 87/55 11/01/19 17:00 75 16 87/55 (66) 95 11/01/19 16:42 78 16 40 11/01/19 16:30 77 16 93/49 (64) 94 11/01/19 16:00 Mechanical Ventilator 11/01/19 16:00 98.8 82 16 91/45 (60) 94 11/01/19 16:00 78 11/01/19 16:00 50 11/01/19 15:30 82 18 105/49 (67) 97 11/01/19 15:30 105/49 11/01/19 15:00 92 21 123/57 (79) 96 11/01/19 14:34 92 20 50 4/3/20 14:30 90 20 114/73 (87) 96 11/01/19 14:00 94 22 147/73 (97) 95 11/01/19 13:39 111/60 11/01/19 13:30 88 18 111/60 (77) 95 11/01/19 13:10 92 19 50 Height (Feet): 6 Height (Inches): 1.00 Weight (Pounds): 151 Microbiology Date/Time Source Procedure Growth Status 10/30/19 23:30 Sputum Gram Stain - Final Resulted 10/30/19 23:30 Sputum Culture - Preliminary Yeast Species Resulted 10/30/19 15:39 Nasal Nares MRSA Culture - Final NO METHICILLIN RESISTANT STAPH AUREUS... Complete 10/30/19 15:39 Rectum VRE Culture - Final Enterococcus Faecalis - Vre Enterococcus Faecium - Vre Complete 10/30/19 15:39 Rectum - Final NO CARBAPENEM-RESISTANT ENTEROBACTERI... Complete Laboratory Tests Test 11/01/19 15:15 11/02/19 04:25 11/02/19 05:30 11/02/19 07:21 Troponin I 0.000 ng/mL (0.000-0.056) 0.000 ng/mL (0.000-0.056) White Blood Count 14.6 K/UL (4.8-10.8) H Red Blood Count 3.21 M/UL (4.70-6.10) L Hemoglobin 8.8 G/DL (14.2-18.0) L Hematocrit 27.1 % (42.0-52.0) L Mean Corpuscular Volume 84 FL (80-99) Mean Corpuscular Hemoglobin 27.5 PG (27.0-31.0) Mean Corpuscular Hemoglobin Concent 32.6 G/DL (32.0-36.0) Red Cell Distribution Width 15.6 % (11.6-14.8) H Platelet Count 212 K/UL (150-450) Mean Platelet Volume 5.5 FL (6.5-10.1) L Neutrophils (%) (Auto) 83.1 % (45.0-75.0) H Lymphocytes (%) (Auto) 8.7 % (20.0-45.0) L Monocytes (%) (Auto) 6.9 % (1.0-10.0) Eosinophils (%) (Auto) 0.8 % (0.0-3.0) Basophils (%) (Auto) 0.6 % (0.0-2.0) Sodium Level 143 MMOL/L (136-145) Potassium Level 3.2 MMOL/L (3.5-5.1) L Chloride Level 110 MMOL/L (98-107) H Carbon Dioxide Level 22 MMOL/L (21-32) Anion Gap 11 mmol/L (5-15) Blood Urea Nitrogen 9 mg/dL (7-18) Creatinine 0.9 MG/DL (0.55-1.30) Estimat Glomerular Filtration Rate > 60 mL/min (>60) Glucose Level 99 MG/DL (74-106) Calcium Level 7.8 MG/DL (8.5-10.1) L Phosphorus Level 2.4 MG/DL (2.5-4.9) L Magnesium Level 2.0 MG/DL (1.8-2.4) Total Bilirubin 0.4 MG/DL (0.2-1.0) Aspartate Amino Transf (AST/SGOT) 64 U/L (15-37) H Alanine Aminotransferase (ALT/SGPT) 71 U/L (12-78) Alkaline Phosphatase 123 U/L (46-116) H Pro-B-Type Natriuretic Peptide 2509 pg/mL (0-125) H Total Protein 5.4 G/DL (6.4-8.2) L Albumin 1.7 G/DL (3.4-5.0) L Globulin 3.7 g/dL Albumin/Globulin Ratio 0.5 (1.0-2.7) L Vancomycin Level Trough 12.0 ug/mL (5.0-12.0) Stool Occult Blood Positive (NEGATIVE) Arterial Blood pH 7.413 (7.350-7.450) Arterial Blood Partial Pressure CO2 33.3 mmHg (35.0-45.0) L Arterial Blood Partial Pressure O2 55.7 mmHg (75.0-100.0) L Arterial Blood HCO3 20.3 mmol/L (22.0-26.0) L Arterial Blood Oxygen Saturation 88.7 % (95-100) *L Arterial Blood Base Excess -3.3 (-2-2) L Ty Test Positive Current Medications Medications (Trade) Dose Ordered Sig/Tasha Route PRN Reason Start Time Stop Time Status Last Admin Dose Admin Acetaminophen (Tylenol) 650 mg Q4H PRN ORAL fever 10/30/19 11:15 11/29/19 11:14 Albuterol/ Ipratropium (Albuterol/ Ipratropium) 3 ml Q4H PRN HHN Shortness of Breath 10/30/19 11:15 11/04/19 11:14 Amikacin Sulfate 1000 mg/Sodium Chloride 114 ml @ 114 mls/hr Q36H IV 11/02/19 11:00 11/09/19 10:59 11/02/19 11:06 Amiodarone HCl (Cordarone) 200 mg DAILY PEG 10/31/19 09:00 01/29/20 08:59 11/02/19 08:32 Chlorhexidine Gluconate (Megan-Hex 2%) 1 applic DAILY@2000 TOPIC 11/01/19 20:00 01/30/20 19:59 11/01/19 20:42 Ertapenem 1 gm/ Sodium Chloride 55 ml @ 110 mls/hr Q24H IV 10/31/19 00:00 11/05/19 00:00 11/01/19 23:54 Heparin Sodium (Porcine) (Heparin 5000 units/ml) 5,000 units EVERY 12 HOURS SUBQ 11/02/19 09:00 12/17/19 08:59 Levothyroxine Sodium (Synthroid) 50 mcg DAILY@0630 GT 10/31/19 06:30 11/30/19 06:29 11/02/19 05:27 Linezolid 300 ml @ 300 mls/hr Q12HR IVPB 11/02/19 13:30 11/09/19 13:29 Lorazepam (Ativan 2mg/ml 1ml) 2 mg Q2H PRN IV For Anxiety 10/30/19 11:15 11/06/19 11:14 11/01/19 15:22 Morphine Sulfate (Morphine Sulfate) 4 mg Q4H PRN IVP Severe Pain (Pain Scale 7-10) 10/30/19 11:15 11/06/19 11:14 10/30/19 23:48 Norepinephrine Bitartrate 4 mg/ Dextrose 254 ml @ 0 mls/hr Q24H IV 10/30/19 22:00 11/29/19 21:59 11/01/19 23:54 Ondansetron HCl (Zofran) 4 mg Q6H PRN IVP Nausea & Vomiting 10/30/19 11:15 11/29/19 11:14 Oseltamivir Phosphate (Tamiflu) 75 mg BID ORAL 11/02/19 09:00 11/05/19 08:59 11/02/19 09:01 Pantoprazole (Protonix) 40 mg DAILY IVP 10/31/19 09:00 11/30/19 08:59 11/02/19 08:32 Polyethylene Glycol (Miralax) 17 gm DAILYPRN PRN ORAL Constipation 10/30/19 11:15 11/29/19 11:14 Potassium Chloride 100 ml @ 50 mls/hr Q2H IVPB 11/02/19 11:00 11/02/19 14:59 11/02/19 11:06 Quetiapine Fumarate (SEROqueL) 100 mg Q12HR GT 10/30/19 23:00 12/14/19 22:59 11/02/19 08:32 Sodium Chloride 1,000 ml @ 100 mls/hr Q10H IVLG 10/30/19 11:10 11/29/19 11:09 11/02/19 08:34 Jacoby Palencia MD Nov 02, 2019 13:07
[2019-11-02] MEDS ORDERED: Vancomycin 750mg/NS 275ml IVPB SCH ×2 (14:00)
--- NOTE | 2019-11-02 14:55 | NUR ---
NURSE NOTES: Repositioned patient. BP is stable. No distress/SOB noted.
--- NOTE | 2019-11-02 15:24 | Internal Med Progress Note ---
Subjective Date of Service: Nov 02, 2019 Physician Name Gallito Turcios Attending Physician Danny Stark MD Current Medications Medications (Trade) Dose Ordered Sig/Tasha Route PRN Reason Start Time Stop Time Status Last Admin Dose Admin Acetaminophen (Tylenol) 650 mg Q4H PRN ORAL fever 10/30/19 11:15 11/29/19 11:14 Albuterol/ Ipratropium (Albuterol/ Ipratropium) 3 ml Q4H PRN HHN Shortness of Breath 10/30/19 11:15 11/04/19 11:14 Amikacin Sulfate 1000 mg/Sodium Chloride 114 ml @ 114 mls/hr Q36H IV 11/02/19 11:00 11/09/19 10:59 11/02/19 11:06 Amiodarone HCl (Cordarone) 200 mg DAILY PEG 10/31/19 09:00 01/29/20 08:59 11/02/19 08:32 Chlorhexidine Gluconate (Megan-Hex 2%) 1 applic DAILY@2000 TOPIC 11/01/19 20:00 01/30/20 19:59 11/01/19 20:42 Ertapenem 1 gm/ Sodium Chloride 55 ml @ 110 mls/hr Q24H IV 10/31/19 00:00 11/05/19 00:00 11/01/19 23:54 Heparin Sodium (Porcine) (Heparin 5000 units/ml) 5,000 units EVERY 12 HOURS SUBQ 11/02/19 09:00 12/17/19 08:59 Levothyroxine Sodium (Synthroid) 50 mcg DAILY@0630 GT 10/31/19 06:30 11/30/19 06:29 11/02/19 05:27 Linezolid 300 ml @ 300 mls/hr Q12HR IVPB 11/02/19 13:30 11/09/19 13:29 11/02/19 13:19 Lorazepam (Ativan 2mg/ml 1ml) 2 mg Q2H PRN IV For Anxiety 10/30/19 11:15 11/06/19 11:14 11/01/19 15:22 Morphine Sulfate (Morphine Sulfate) 4 mg Q4H PRN IVP Severe Pain (Pain Scale 7-10) 10/30/19 11:15 11/06/19 11:14 10/30/19 23:48 Norepinephrine Bitartrate 4 mg/ Dextrose 254 ml @ 0 mls/hr Q24H IV 10/30/19 22:00 11/29/19 21:59 11/01/19 23:54 Ondansetron HCl (Zofran) 4 mg Q6H PRN IVP Nausea & Vomiting 10/30/19 11:15 11/29/19 11:14 Oseltamivir Phosphate (Tamiflu) 75 mg BID ORAL 11/02/19 09:00 11/05/19 08:59 11/02/19 09:01 Pantoprazole (Protonix) 40 mg DAILY IVP 10/31/19 09:00 11/30/19 08:59 11/02/19 08:32 Polyethylene Glycol (Miralax) 17 gm DAILYPRN PRN ORAL Constipation 10/30/19 11:15 11/29/19 11:14 Quetiapine Fumarate (SEROqueL) 100 mg Q12HR GT 10/30/19 23:00 12/14/19 22:59 11/02/19 08:32 Sodium Chloride 1,000 ml @ 100 mls/hr Q10H IVLG 10/30/19 11:10 11/29/19 11:09 11/02/19 08:34 Allergies: Coded Allergies: No Known Allergies (Unverified , 10/30/19) ROS Limited/Unobtainable: Yes Subjective 73 YO M with history of esophageal cancer admitted with respiratory failure. Cover for Int Med-Dr Stark. ICU. Intubted and sedated Objective Last Vital Signs Date Time Temp Pulse Resp B/P (MAP) Pulse Ox O2 Delivery O2 Flow Rate FiO2 11/02/19 15:17 92 23 40 11/02/19 14:30 132/72 (92) 94 11/02/19 12:00 Mechanical Ventilator 11/02/19 12:00 97.6 10/30/19 22:00 15.0 Laboratory Tests Test 11/02/19 04:25 11/02/19 05:30 11/02/19 07:21 White Blood Count 14.6 K/UL (4.8-10.8) H Red Blood Count 3.21 M/UL (4.70-6.10) L Hemoglobin 8.8 G/DL (14.2-18.0) L Hematocrit 27.1 % (42.0-52.0) L Mean Corpuscular Volume 84 FL (80-99) Mean Corpuscular Hemoglobin 27.5 PG (27.0-31.0) Mean Corpuscular Hemoglobin Concent 32.6 G/DL (32.0-36.0) Red Cell Distribution Width 15.6 % (11.6-14.8) H Platelet Count 212 K/UL (150-450) Mean Platelet Volume 5.5 FL (6.5-10.1) L Neutrophils (%) (Auto) 83.1 % (45.0-75.0) H Lymphocytes (%) (Auto) 8.7 % (20.0-45.0) L Monocytes (%) (Auto) 6.9 % (1.0-10.0) Eosinophils (%) (Auto) 0.8 % (0.0-3.0) Basophils (%) (Auto) 0.6 % (0.0-2.0) Sodium Level 143 MMOL/L (136-145) Potassium Level 3.2 MMOL/L (3.5-5.1) L Chloride Level 110 MMOL/L (98-107) H Carbon Dioxide Level 22 MMOL/L (21-32) Anion Gap 11 mmol/L (5-15) Blood Urea Nitrogen 9 mg/dL (7-18) Creatinine 0.9 MG/DL (0.55-1.30) Estimat Glomerular Filtration Rate > 60 mL/min (>60) Glucose Level 99 MG/DL (74-106) Calcium Level 7.8 MG/DL (8.5-10.1) L Phosphorus Level 2.4 MG/DL (2.5-4.9) L Magnesium Level 2.0 MG/DL (1.8-2.4) Total Bilirubin 0.4 MG/DL (0.2-1.0) Aspartate Amino Transf (AST/SGOT) 64 U/L (15-37) H Alanine Aminotransferase (ALT/SGPT) 71 U/L (12-78) Alkaline Phosphatase 123 U/L (46-116) H Troponin I 0.000 ng/mL (0.000-0.056) Pro-B-Type Natriuretic Peptide 2509 pg/mL (0-125) H Total Protein 5.4 G/DL (6.4-8.2) L Albumin 1.7 G/DL (3.4-5.0) L Globulin 3.7 g/dL Albumin/Globulin Ratio 0.5 (1.0-2.7) L Vancomycin Level Trough 12.0 ug/mL (5.0-12.0) Stool Occult Blood Positive (NEGATIVE) Arterial Blood pH 7.413 (7.350-7.450) Arterial Blood Partial Pressure CO2 33.3 mmHg (35.0-45.0) L Arterial Blood Partial Pressure O2 55.7 mmHg (75.0-100.0) L Arterial Blood HCO3 20.3 mmol/L (22.0-26.0) L Arterial Blood Oxygen Saturation 88.7 % (95-100) *L Arterial Blood Base Excess -3.3 (-2-2) L Ty Test Positive Microbiology Date/Time Source Procedure Growth Status 10/30/19 23:30 Sputum Gram Stain - Final Resulted 10/30/19 23:30 Sputum Culture - Preliminary Yeast Species Resulted 10/30/19 15:39 Nasal Nares MRSA Culture - Final NO METHICILLIN RESISTANT STAPH AUREUS... Complete 10/30/19 15:39 Rectum VRE Culture - Final Enterococcus Faecalis - Vre Enterococcus Faecium - Vre Complete 10/30/19 15:39 Rectum - Final NO CARBAPENEM-RESISTANT ENTEROBACTERI... Complete Intake and Output 11/01/19 11/02/19 19:00 07:00 Intake Total 1846.9468 ml 1851.70 ml Output Total 1145 ml 720 ml Balance 701.9468 ml 1131.70 ml Intake Free Water 200 ml IV Total 1526.9468 ml 1371.70 ml Tube Feeding 120 ml 90 ml Blood Product 250 ml Other 140 ml Output Urine Total 1145 ml 720 ml # Bowel Movements 1 1 Objective PHYSICAL EXAMINATION: VITAL SIGNS: Temperature 98.1, respirations 25, pulse 92, blood pressure 95/59. GENERAL: The patient is well-developed, well-nourished male, who is intubated and sedated. HEENT: Eyes, pupils are equal and responsive to light and accommodation. Extraocular movements are intact. NECK: Supple without lymphadenopathy. CHEST: Mech vent; Coarse mechanical breath sounds bilaterally without wheezes or rales. CARDIOVASCULAR: Regular rhythm and rate. S1, S2 are normal without murmurs, rubs, or gallops. ABDOMEN: Soft, nontender, and nondistended. Positive bowel sounds. No evidence of hepatosplenomegaly. Currently, no rebound or guarding noted. EXTREMITIES: Negative for clubbing, cyanosis, or edema. RECTAL/GENITAL: Not performed. NEUROLOGICAL: Unable to assess. Assessment/Plan Assessment/Plan ASSESSMENT: This is a 73-year-old male. 1. Respiratory failure. 2. Pneumonia. 3. Esophageal cancer. 4. Diabetes type 2. 5. Hypertension. 6. Hypercholesterolemia. 7. Atrial fibrillation. 8. Hypothyroidism. 9. Dysphagia. 10. History of prostate cancer. TREATMENT: 1. Pneumonia/respiratory failure. A Pulmonary consultation has been obtained with Dr. Jackie Kaiser. empirically on intravenous vancomycin, linezolid and amikacin. An Infectious Disease consultation has been obtained with Dr. Yifan Rivera. We will follow recommendations of Infectious Disease and Pulmonary. COVID 19=neg 2. Esophageal cancer. 3. Diabetes type 2. A NovoLog sliding scale has been instituted. 4. Hypertension. The patient is currently hypotensive and probable sepsis. 5. Hypercholesterolemia. Continue atorvastatin as above. 6. Atrial fibrillation. Continue amiodarone as above. 7. Hypothyroidism. Continue levothyroxine as above. 8. Dysphagia, status post PEG placement. 9. History of prostate cancer. Gallito Turcios MD Nov 02, 2019 15:24
--- NOTE | 2019-11-02 15:49 | NUR ---
NURSE NOTES: Bed bath given. Noted with small soft brown BM x1.
--- NOTE | 2019-11-02 18:20 | Cardiology Progress Note ---
Assessment/Plan Problem List: (1) Respiratory failure (2) Influenza A (3) COPD (chronic obstructive pulmonary disease) (4) Pneumonia Status: stable, progressing Status Narrative Hemodynamically improving, now off pressors. eCHO noted- normal LV systolic function. Remains on vent support. XR w/ bilat infiltrates. On tamiflu and antibiotics per ID. Assessment/Plan Continue current management. CXR c/w bilateral pneumonia. LV systolic function normal. Does not appear in overt CHF, though i/os + appx 7 L since adm. Will check BNP in am Subjective ROS Limited/Unobtainable: Yes Subjective Cardiology for Dr. Slade Intubated, awake Objective Last 24 Hour Vital Signs Date Time Temp Pulse Resp B/P (MAP) Pulse Ox O2 Delivery O2 Flow Rate FiO2 11/02/19 17:12 83 20 40 11/02/19 16:00 Mechanical Ventilator 11/02/19 16:00 97.6 80 20 119/56 (77) 98 11/02/19 16:00 40 11/02/19 15:17 92 23 40 11/02/19 15:00 90 22 115/71 (86) 95 11/02/19 14:30 88 23 132/72 (92) 94 11/02/19 14:00 88 22 130/63 (85) 96 11/02/19 13:30 98 24 131/71 (91) 94 11/02/19 13:10 99 24 40 11/02/19 13:00 79 28 138/66 (90) 96 11/02/19 12:30 86 22 112/91 (98) 95 11/02/19 12:00 Mechanical Ventilator 11/02/19 12:00 97.6 89 21 95/71 (79) 93 11/02/19 12:00 90 11/02/19 12:00 40 11/02/19 11:30 97 18 114/82 (93) 88 11/02/19 11:20 94 28 40 11/02/19 11:00 123/55 11/02/19 11:00 83 23 123/55 (77) 92 11/02/19 10:30 84 21 118/59 (78) 91 11/02/19 10:00 83 20 119/56 (77) 93 11/02/19 10:00 119/56 11/02/19 10:00 40 11/02/19 09:30 82 18 105/60 (75) 93 11/02/19 09:00 105/48 11/02/19 09:00 77 21 105/48 (67) 94 11/02/19 08:50 78 24 40 11/02/19 08:45 105/46 11/02/19 08:30 137/60 11/02/19 08:30 68 20 137/60 (85) 95 11/02/19 08:15 138/60 11/02/19 08:00 67 11/02/19 08:00 40 11/02/19 08:00 98.3 70 21 147/61 (89) 96 11/02/19 08:00 147/61 11/02/19 08:00 Mechanical Ventilator 11/02/19 07:30 74 20 152/58 (89) 94 11/02/19 07:10 70 20 40 11/02/19 07:00 74 20 152/58 (89) 94 11/02/19 06:30 68 203 11/02/19 06:30 69 22 126/56 (79) 93 11/02/19 06:00 40 11/02/19 06:00 120/63 11/02/19 06:00 84 23 120/63 (82) 94 84 11/02/19 05:30 90 20 131/70 (90) 98 11/02/19 05:21 76 21 40 11/02/19 05:00 128/58 11/02/19 05:00 77 21 128/58 (81) 95 11/02/19 04:30 76 21 138/60 (86) 94 11/02/19 04:00 Mechanical Ventilator 11/02/19 04:00 129/60 11/02/19 04:00 98.4 75 20 129/60 (83) 94 11/02/19 04:00 77 11/02/19 03:39 80 21 40 11/02/19 03:30 79 20 117/56 (76) 92 11/02/19 03:00 82 23 119/56 (77) 93 11/02/19 03:00 119/56 11/02/19 02:30 81 23 129/56 (80) 90 11/02/19 02:00 77 19 125/60 (81) 94 11/02/19 02:00 125/60 11/02/19 01:43 80 23 40 4/4/20 01:30 84 21 123/59 (80) 93 11/02/19 01:00 87 19 129/89 (102) 91 11/02/19 01:00 129/89 11/02/19 00:30 77 20 113/56 (75) 93 11/02/19 00:00 98.3 78 21 112/54 (73) 94 11/02/19 00:00 40 11/02/19 00:00 112/54 11/02/19 00:00 Mechanical Ventilator 11/01/19 23:54 109/54 11/01/19 23:41 89 21 40 11/01/19 23:30 79 20 98/48 (65) 92 11/01/19 23:11 76 11/01/19 23:00 78 20 110/50 (70) 94 11/01/19 23:00 110/50 11/01/19 22:30 72 20 120/53 (75) 94 11/01/19 22:00 74 21 106/49 (68) 93 11/01/19 22:00 106/49 11/01/19 21:44 80 20 40 11/01/19 21:30 79 20 86/45 (59) 93 11/01/19 21:27 80 19 90/45 (60) 92 11/01/19 21:00 76 19 96/45 (62) 94 11/01/19 21:00 96/45 11/01/19 20:30 74 18 116/51 (72) 94 11/01/19 20:00 98.5 75 18 95/48 (64) 93 11/01/19 20:00 40 11/01/19 20:00 95/48 11/01/19 20:00 Mechanical Ventilator 11/01/19 19:44 76 11/01/19 19:39 78 16 40 11/01/19 19:30 77 18 97/45 (62) 93 11/01/19 19:00 77 18 93/47 (62) 94 11/01/19 18:30 78 18 107/50 (69) 93 11/01/19 18:30 107/50 General Appearance: alert, on vent EENT: PERRL/EOMI, other - et tube Neck: supple, no JVD Rhythm: NSR Cardiovascular: normal rate, regular rhythm, no gallop/murmur Respiratory/Chest: other - few rhonchi anteriorly Abdomen: non tender, soft, other - + g tube Extremities: no swelling, other - R femoral triple lumen catheter Intake and Output 11/01/19 11/02/19 19:00 07:00 Intake Total 1846.9468 ml 1851.70 ml Output Total 1145 ml 720 ml Balance 701.9468 ml 1131.70 ml Intake Free Water 200 ml IV Total 1526.9468 ml 1371.70 ml Tube Feeding 120 ml 90 ml Blood Product 250 ml Other 140 ml Output Urine Total 1145 ml 720 ml # Bowel Movements 1 1 Laboratory Tests Test 11/02/19 04:25 11/02/19 05:30 11/02/19 07:21 White Blood Count 14.6 K/UL (4.8-10.8) H Red Blood Count 3.21 M/UL (4.70-6.10) L Hemoglobin 8.8 G/DL (14.2-18.0) L Hematocrit 27.1 % (42.0-52.0) L Mean Corpuscular Volume 84 FL (80-99) Mean Corpuscular Hemoglobin 27.5 PG (27.0-31.0) Mean Corpuscular Hemoglobin Concent 32.6 G/DL (32.0-36.0) Red Cell Distribution Width 15.6 % (11.6-14.8) H Platelet Count 212 K/UL (150-450) Mean Platelet Volume 5.5 FL (6.5-10.1) L Neutrophils (%) (Auto) 83.1 % (45.0-75.0) H Lymphocytes (%) (Auto) 8.7 % (20.0-45.0) L Monocytes (%) (Auto) 6.9 % (1.0-10.0) Eosinophils (%) (Auto) 0.8 % (0.0-3.0) Basophils (%) (Auto) 0.6 % (0.0-2.0) Sodium Level 143 MMOL/L (136-145) Potassium Level 3.2 MMOL/L (3.5-5.1) L Chloride Level 110 MMOL/L (98-107) H Carbon Dioxide Level 22 MMOL/L (21-32) Anion Gap 11 mmol/L (5-15) Blood Urea Nitrogen 9 mg/dL (7-18) Creatinine 0.9 MG/DL (0.55-1.30) Estimat Glomerular Filtration Rate > 60 mL/min (>60) Glucose Level 99 MG/DL (74-106) Calcium Level 7.8 MG/DL (8.5-10.1) L Phosphorus Level 2.4 MG/DL (2.5-4.9) L Magnesium Level 2.0 MG/DL (1.8-2.4) Total Bilirubin 0.4 MG/DL (0.2-1.0) Aspartate Amino Transf (AST/SGOT) 64 U/L (15-37) H Alanine Aminotransferase (ALT/SGPT) 71 U/L (12-78) Alkaline Phosphatase 123 U/L (46-116) H Troponin I 0.000 ng/mL (0.000-0.056) Pro-B-Type Natriuretic Peptide 2509 pg/mL (0-125) H Total Protein 5.4 G/DL (6.4-8.2) L Albumin 1.7 G/DL (3.4-5.0) L Globulin 3.7 g/dL Albumin/Globulin Ratio 0.5 (1.0-2.7) L Vancomycin Level Trough 12.0 ug/mL (5.0-12.0) Stool Occult Blood Positive (NEGATIVE) Arterial Blood pH 7.413 (7.350-7.450) Arterial Blood Partial Pressure CO2 33.3 mmHg (35.0-45.0) L Arterial Blood Partial Pressure O2 55.7 mmHg (75.0-100.0) L Arterial Blood HCO3 20.3 mmol/L (22.0-26.0) L Arterial Blood Oxygen Saturation 88.7 % (95-100) *L Arterial Blood Base Excess -3.3 (-2-2) L Yt Test Positive Microbiology Date/Time Source Procedure Growth Status 10/30/19 23:30 Sputum Gram Stain - Final Resulted 10/30/19 23:30 Sputum Culture - Preliminary Yeast Species Resulted Jayde Monzon MD Nov 02, 2019 18:20
--- NOTE | 2019-11-02 19:26 | NUR ---
RESPIRATORY NOTE: Received pt on AC 16, 600VT, 40%, no. Pt intubated w/ ETT 7.5 @ 23cm lipline, secured by anchorfast. Pt is awake. B/S marcy. rhonchi, sxn moderate to large amounts of thick/frothy, pale-yellow to harrell-yellow secretions. Vent plugged into red outlet, ambubag at bedside. Pt in no apparent distress at this time. Will continue to monitor pt.
--- NOTE | 2019-11-02 19:50 | NUR ---
NURSE NOTES: LE: PATIENT ASLEEP STATUS, ON ETT TO VENT AC16/TV 600/FIO2 40%/NO PEEP, O2 SATURATION OVER 93% NOTED, ABDOMEN SOFT, NO BM STATUS, G TUBE INTACT AND PATENT, ONGOING JEVITY 1.2 at 10ML/HR, NO RESIDUE NOTED, KEPT HOB 30 DEGREES AND ASPIRATION PRECAUTION, F/C INTACT AND PATENT, YELLOW URINE OUTED, TLC TO RIGHT FEMORAL INTACT AND PATENT, ONGOING IV FLUID NS AT 100ML/HR VIA TLC, 2 POINT SOFT RESTRAINTS, MADE LOW BED POSITION, ON P200 BED, BED ALARM AND LOCKED, PLACED CALL LIGHT WITHIN REACH, WILL CONTINUE TO MONITOR.
[2019-11-02] MEDS: Dyna-Hex 2% Top Sol 2oz TOPIC SCH (20:27)
[2019-11-02] MEDS: LORazepam Inj 2mg/ml 1ml IV PRN (20:27)
--- NOTE | 2019-11-02 22:10 | NUR ---
NURSE NOTES: le: Addendum: 11/02/19 at 2308 by VIRGINIA MALAVE RN NURSE NOTES: raysa; REPOSITIONED, PATIENT CALM STATUS.
[2019-11-02] MEDS: Ertapenem 1 GM in NS 55 ML IV SCH (23:54)
[2019-11-03] VITALS (24 sets, daily range): BP systolic 99–146; BP diastolic 52–103
--- NOTE | 2019-11-03 00:54 | NUR ---
NURSE NOTES: PATIENT CALM, ASLEEP STATUS, NO DISTRESS NOTED AT THIS TIME, DISCONTINUED RESTRAINTS STATUS ORDER, WILL CONTINUE TO MONITOR.
--- NOTE | 2019-11-03 01:30 | NUR ---
NURSE NOTES: LE; PATIENT TRIED TO REMOVE LINE THAT APPLIED 2 POINT SOFT RESTRAINTS, WILL CONTINUE TO MONITOR.
--- NOTE | 2019-11-03 03:00 | NUR ---
NURSE NOTES: ASLEEP STATUS, NO DISTRESS NOTED.
--- NOTE | 2019-11-03 05:00 | NUR ---
NURSE NOTES: MORNING CARE AND ORAL CARE WAS DONE.
--- NOTE | 2019-11-03 06:27 | Pulmonolgy Critical Care Note ---
Critical Care - Asmt/Plan Problems: (1) Acute respiratory failure (2) Septic shock (3) Enterococcal bacteremia (4) Nosocomial pneumonia (5) COPD (chronic obstructive pulmonary disease) (6) Atrial fibrillation (7) Severe anemia (8) Suspected 2019-nCoV infection (9) Hypothyroidism (10) Psychosis Respiratory: monitor respiratory rate, adjust FIO2, CXR Cardiac: continue to monitor HR/BP Renal: F/U I&O, keep IV fluid, check electrolytes Infectious Disease: add antibiotics Gastrointestinal: continue feedings/current rate Endocrine: monitor blood sugar, check HgA1C Hematologic: monitor H/H, transfuse if hgb<8.5 Neurologic: PRN Morphine, keep patient comfortable Affect: PRN ativan Time Spent (Minutes): 40 Notes 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, 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, 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 Discussed with: nurses, consultants, pillowcase makerjava manager - Objective Last 24 Hour Vital Signs Date Time Temp Pulse Resp B/P (MAP) Pulse Ox O2 Delivery O2 Flow Rate FiO2 11/03/19 06:00 74 17 108/56 (73) 92 11/03/19 05:10 80 17 40 11/03/19 05:00 78 18 119/56 (77) 92 78 11/03/19 04:00 98.3 69 16 107/52 (70) 92 69 11/03/19 04:00 40 11/03/19 04:00 69 11/03/19 04:00 Mechanical Ventilator 11/03/19 03:08 67 16 40 11/03/19 03:00 68 16 119/56 (77) 92 11/03/19 02:00 69 16 104/53 (70) 93 11/03/19 01:00 69 16 99/68 (78) 91 11/03/19 01:00 79 16 40 11/03/19 00:00 40 11/03/19 00:00 98.3 66 16 103/53 (70) 95 11/03/19 00:00 66 11/03/19 00:00 Mechanical Ventilator 11/02/19 23:04 73 16 40 11/02/19 23:00 66 16 125/67 (86) 92 11/02/19 22:00 75 16 99/53 (68) 92 11/02/19 21:30 82 18 40 11/02/19 21:00 79 16 117/63 (81) 93 11/02/19 20:00 Mechanical Ventilator 11/02/19 20:00 40 11/02/19 20:00 99.0 89 21 137/73 (94) 94 11/02/19 19:30 91 11/02/19 19:24 94 29 40 11/02/19 19:00 87 18 126/52 (76) 95 11/02/19 18:00 82 18 132/67 (88) 95 11/02/19 17:12 83 20 40 11/02/19 17:00 84 18 126/71 (89) 95 11/02/19 16:00 Mechanical Ventilator 11/02/19 16:00 97.6 80 20 119/56 (77) 98 11/02/19 16:00 82 11/02/19 16:00 40 11/02/19 15:17 92 23 40 11/02/19 15:00 90 22 115/71 (86) 95 11/02/19 14:30 88 23 132/72 (92) 94 11/02/19 14:00 88 22 130/63 (85) 96 11/02/19 13:30 98 24 131/71 (91) 94 11/02/19 13:10 99 24 40 11/02/19 13:00 79 28 138/66 (90) 96 11/02/19 12:30 86 22 112/91 (98) 95 11/02/19 12:00 Mechanical Ventilator 11/02/19 12:00 97.6 89 21 95/71 (79) 93 11/02/19 12:00 90 11/02/19 12:00 40 11/02/19 11:30 97 18 114/82 (93) 88 11/02/19 11:20 94 28 40 11/02/19 11:00 123/55 11/02/19 11:00 83 23 123/55 (77) 92 11/02/19 10:30 84 21 118/59 (78) 91 11/02/19 10:00 83 20 119/56 (77) 93 11/02/19 10:00 119/56 11/02/19 10:00 40 11/02/19 09:30 82 18 105/60 (75) 93 11/02/19 09:00 105/48 11/02/19 09:00 77 21 105/48 (67) 94 11/02/19 08:50 78 24 40 11/02/19 08:45 105/46 11/02/19 08:30 137/60 11/02/19 08:30 68 20 137/60 (85) 95 11/02/19 08:15 138/60 11/02/19 08:00 67 11/02/19 08:00 40 11/02/19 08:00 98.3 70 21 147/61 (89) 96 11/02/19 08:00 147/61 11/02/19 08:00 Mechanical Ventilator 11/02/19 07:30 74 20 152/58 (89) 94 11/02/19 07:10 70 20 40 11/02/19 07:00 74 20 152/58 (89) 94 11/02/19 06:30 68 203 11/02/19 06:30 69 22 126/56 (79) 93 Status: awake Condition: critical HEENT: atraumatic, normocephalic Lungs: clear Heart: HR/BP stable, regular Abdomen: soft, non-tender Extremities: no C/C/E, edema Micro: Microbiology Date/Time Source Procedure Growth Status 11/01/19 20:55 Blood Blood Culture - Preliminary NO GROWTH AFTER 24 HOURS Resulted 11/01/19 20:45 Blood Blood Culture - Preliminary NO GROWTH AFTER 24 HOURS Resulted Critical Care - Subjective ROS Limited/Unobtainable: Yes Interval Events: sedated, looks comfortable Condition: critical FI02: 40 Vent Support Breath Rate: 16 Vent Support Mode: AC Vent Tidal Volume: 600 Sputum Amount: Moderate PEEP: 0.0 PIP: 33 Tube Feeding Amount: 0 I&O: Intake and Output 11/02/19 11/03/19 19:00 07:00 Intake Total 1772.08 ml 1265 ml Output Total 1050 ml 850 ml Balance 722.08 ml 415 ml IV Total 1552.08 ml 1055 ml Tube Feeding 120 ml 100 ml Other 100 ml 110 ml Output Urine Total 1050 ml 850 ml # Bowel Movements 1 1 ET-Tube: 7.5 ET Position: 23 Labs: Laboratory Tests Test 11/02/19 07:21 Arterial Blood pH 7.413 (7.350-7.450) Arterial Blood Partial Pressure CO2 33.3 mmHg (35.0-45.0) L Arterial Blood Partial Pressure O2 55.7 mmHg (75.0-100.0) L Arterial Blood HCO3 20.3 mmol/L (22.0-26.0) L Arterial Blood Oxygen Saturation 88.7 % (95-100) *L Arterial Blood Base Excess -3.3 (-2-2) L Ty Test Positive Jackie Kaiser MD Nov 03, 2019 06:27
--- NOTE | 2019-11-03 06:45 | NUR ---
NURSE NOTES: SEEN THE PATIENT BY DR. EWING, MADE NEW ORDER STATUS.
[2019-11-03 07:18] LABS: BASOPHILS % (AUTO) 1.1 % (0.0-2.0); EOSINOPHILS % (AUTO) 2.3 % (0.0-3.0); HEMOGLOBIN 8.5 G/DL (14.2-18.0); MEAN CORPUSCULAR VOLUME 85 FL (80-99); MONOCYTES % (AUTO) 14.2 % (1.0-10.0); NEUTROPHILS % (AUTO) 70.4 % (45.0-75.0); PLATELET COUNT 200 K/UL (150-450); RED BLOOD COUNT 3.05 M/UL (4.70-6.10); RED CELL DISTRIBUTION WIDTH 15.8 % (11.6-14.8); WHITE BLOOD COUNT 8.8 K/UL (4.8-10.8)
--- NOTE | 2019-11-03 07:23 | NUR ---
HAND-OFF: Report given to VENKAT VAUGHN.
--- NOTE | 2019-11-03 07:24 | NUR ---
NURSE NOTES: Late entry: PT and report received Martinez RN; AAO 2-3 responsive to light rain and name, medical numerical control operator shows SR; received intubated ETT 7.5 @ 23 R-lip, AC 16, TV 600, 40%, peep 0 saturating at 95% no S/S of respiratory distress noted; GT feeding Jevity 1.2 @ 10cc/hr no residual noted will increase to 30cc/hr per MD Job; logan intact and draining at lowest position; no skin issues noted; PT has R-fem TLC infusing NS @ 100cc/hr and L-hand 20g and R-hand 18g flushes intact patent saline locked. Will continue to monitor PT.
[2019-11-03 07:53] LABS: ALANINE AMINOTRANSFERASE 58 U/L (12-78); ALBUMIN 1.5 G/DL (3.4-5.0); ALBUMIN/GLOBULIN RATIO 0.4 (1.0-2.7); ALKALINE PHOSPHATASE 128 U/L (46-116); ANION GAP 9 mmol/L (5-15); ASPARTATE AMINO TRANSFERASE 59 U/L (15-37); BILIRUBIN,TOTAL 0.2 MG/DL (0.2-1.0); BLOOD UREA NITROGEN 8 mg/dL (7-18); CALCIUM 7.8 MG/DL (8.5-10.1); CARBON DIOXIDE 23 MMOL/L (21-32); CHLORIDE 111 MMOL/L (98-107); CREATININE 0.9 MG/DL (0.55-1.30); PHOSPHORUS 2.2 MG/DL (2.5-4.9); POTASSIUM 3.3 MMOL/L (3.5-5.1); SODIUM 143 MMOL/L (136-145)
--- NOTE | 2019-11-03 07:55 | NUR ---
NURSE NOTES: MD Job informed of current GT feeding jevity 1.2 @ 10cc/hr, orders given to increase current feeding to 30cc/hr. Will place orders on behalf of .
[2019-11-03] MEDS: Heparin 5000 units/ml inj SUBQ SCH ×2 (08:31→20:40)
--- NOTE | 2019-11-03 08:37 | NUR ---
RD ASSESSMENT & RECOMMENDATIONS SEE CARE ACTIVITY FOR COMPLETE ASSESSMENT DAILY ESTIMATED NEEDS: Needs based on CRITICAL CARE/ 66kg 22-28 kcals/kg 5098-4999 total kcals 1.2-2 g protein/kg 79-132 g total protein 25-30 mL/kg 2143-3690 total fluid mLs NUTRITION DIAGNOSIS: Swallowing difficulty R/T dysphagia as evidenced by PEG dep, currently NPO, s/p oral intubation, pressor support now held. CURRENT TF:Jevity 1.2 @10-> now @30 ml ENTERAL NUTRITION RECOMMENDATIONS: Glucerna 1.2 @ 60ml/hr x 22 hrs (hold 1 hr before and after Synthroid) to provide 1320ml, 1584kcal, 79g prot, 1063ml free water * WITH HEMODYNAMIC STABILITY, initiate Glucerna 1.2 @ 20ml/hr x 6 hrs, advance 10ml q 4-6 hrs as tolerated to goal rate * HOB over 30 degrees * Without IVF, water flush of 150ml q 6 hrs * Hold 1 hr before and after Synthroid med. -- WITHOUT HEMODYNAMIC STABILITY: rec trophic feeding of Glucerna 1.2 @ 10ml/hr ADDITIONAL RECOMMENDATIONS: * Per [facility]: HT=66" EZ=294# (as of 10/18) -> rec calibrated bedscale wt * Monitor hemodynamic stability, ability to feed * Monitor for hypoglycemia while NPO: consider D5 vs NS (h/o DM) -> rec bed side BG testing as able * Check lytes daily, replete as needed (K 3.3)
[2019-11-03] MEDS: Amiodarone 200mg tab PEG SCH (09:00)
[2019-11-03] MEDS: Pantoprazole Inj IVP SCH (09:31)
[2019-11-03] MEDS: Oseltamivir 75mg cap ORAL SCH ×2 (09:34→18:15)
--- NOTE | 2019-11-03 10:46 | NUR ---
NURSE NOTES: MD Job informed of morning labs, orders given for Kphos 20 mEq IV times one. Will place orders on behalf of . Addendum: 11/03/19 at 1049 by Kyler Carrera RN NURSE NOTES: Correction: MD Job informed of morning labs, orders given for Kphos 20mm IV times one. Will place orders on behalf of .
[2019-11-03] MEDS ORDERED: Potassium Phosphate 20 MM in NS 275 ML IV ONE (12:00)
--- NOTE | 2019-11-03 13:28 | NUR ---
NURSE NOTES: VSS, suctioning and oral care given, thin secretions noted from ETT; remains afebrile, will continue to monitor PT.
--- NOTE | 2019-11-03 17:30 | NUR ---
NURSE NOTES: PT combative during linens changed, reorientation given with help of CHRIS Matos; seemed to understand commands at times but observed trying to reach for staff and ETT. Will continue to monitor PT.
[2019-11-03] MEDS: LORazepam Inj 2mg/ml 1ml IV PRN (18:15)
--- NOTE | 2019-11-03 18:16 | Internal Med Progress Note ---
Subjective Date of Service: Nov 03, 2019 Physician Name Gallito Turcios Attending Physician Danny Stark MD Current Medications Medications (Trade) Dose Ordered Sig/Tasha Route PRN Reason Start Time Stop Time Status Last Admin Dose Admin Acetaminophen (Tylenol) 650 mg Q4H PRN ORAL fever 10/30/19 11:15 11/29/19 11:14 Albuterol/ Ipratropium (Albuterol/ Ipratropium) 3 ml Q4H PRN HHN Shortness of Breath 10/30/19 11:15 11/04/19 11:14 Amikacin Sulfate 1000 mg/Sodium Chloride 114 ml @ 114 mls/hr Q36H IV 11/02/19 11:00 11/09/19 10:59 11/02/19 11:06 Amiodarone HCl (Cordarone) 200 mg DAILY PEG 10/31/19 09:00 01/29/20 08:59 11/02/19 08:32 Chlorhexidine Gluconate (Megan-Hex 2%) 1 applic DAILY@2000 TOPIC 11/01/19 20:00 01/30/20 19:59 11/02/19 20:27 Ertapenem 1 gm/ Sodium Chloride 55 ml @ 110 mls/hr Q24H IV 10/31/19 00:00 11/05/19 00:00 11/02/19 23:54 Heparin Sodium (Porcine) (Heparin 5000 units/ml) 5,000 units EVERY 12 HOURS SUBQ 11/02/19 09:00 12/17/19 08:59 11/02/19 20:29 Levothyroxine Sodium (Synthroid) 50 mcg DAILY@0630 GT 10/31/19 06:30 11/30/19 06:29 11/03/19 05:41 Linezolid 300 ml @ 300 mls/hr Q12HR IVPB 11/02/19 13:30 11/09/19 13:29 11/03/19 09:29 Lorazepam (Ativan 2mg/ml 1ml) 2 mg Q2H PRN IV For Anxiety 10/30/19 11:15 11/06/19 11:14 11/02/19 20:27 Morphine Sulfate (Morphine Sulfate) 4 mg Q4H PRN IVP Severe Pain (Pain Scale 7-10) 10/30/19 11:15 11/06/19 11:14 10/30/19 23:48 Norepinephrine Bitartrate 4 mg/ Dextrose 254 ml @ 0 mls/hr Q24H IV 10/30/19 22:00 11/29/19 21:59 11/01/19 23:54 Ondansetron HCl (Zofran) 4 mg Q6H PRN IVP Nausea & Vomiting 10/30/19 11:15 11/29/19 11:14 Oseltamivir Phosphate (Tamiflu) 75 mg BID ORAL 11/02/19 09:00 11/05/19 08:59 11/03/19 09:34 Pantoprazole (Protonix) 40 mg DAILY IVP 10/31/19 09:00 11/30/19 08:59 11/03/19 09:31 Polyethylene Glycol (Miralax) 17 gm DAILYPRN PRN ORAL Constipation 10/30/19 11:15 11/29/19 11:14 Quetiapine Fumarate (SEROqueL) 100 mg Q12HR GT 10/30/19 23:00 12/14/19 22:59 11/03/19 09:31 Sodium Chloride 1,000 ml @ 100 mls/hr Q10H IVLG 10/30/19 11:10 11/29/19 11:09 11/03/19 16:28 Allergies: Coded Allergies: No Known Allergies (Unverified , 10/30/19) ROS Limited/Unobtainable: Yes Subjective 73 YO M with history of esophageal cancer admitted with respiratory failure. Cover for Int Med-Dr Stark. ICU. Intubted and sedated Objective Last Vital Signs Date Time Temp Pulse Resp B/P (MAP) Pulse Ox O2 Delivery O2 Flow Rate FiO2 11/03/19 17:17 80 23 40 11/03/19 17:00 139/79 (99) 96 11/03/19 16:00 98.5 11/03/19 16:00 Mechanical Ventilator 10/30/19 22:00 15.0 Laboratory Tests Test 11/03/19 05:00 White Blood Count 8.8 K/UL (4.8-10.8) Red Blood Count 3.05 M/UL (4.70-6.10) L Hemoglobin 8.5 G/DL (14.2-18.0) L Hematocrit 26.0 % (42.0-52.0) L Mean Corpuscular Volume 85 FL (80-99) Mean Corpuscular Hemoglobin 27.7 PG (27.0-31.0) Mean Corpuscular Hemoglobin Concent 32.5 G/DL (32.0-36.0) Red Cell Distribution Width 15.8 % (11.6-14.8) H Platelet Count 200 K/UL (150-450) Mean Platelet Volume 5.1 FL (6.5-10.1) L Neutrophils (%) (Auto) 70.4 % (45.0-75.0) Lymphocytes (%) (Auto) 12.0 % (20.0-45.0) L Monocytes (%) (Auto) 14.2 % (1.0-10.0) H Eosinophils (%) (Auto) 2.3 % (0.0-3.0) Basophils (%) (Auto) 1.1 % (0.0-2.0) Erythrocyte Sedimentation Rate 122 MM/HR (0-20) H Sodium Level 143 MMOL/L (136-145) Potassium Level 3.3 MMOL/L (3.5-5.1) L Chloride Level 111 MMOL/L (98-107) H Carbon Dioxide Level 23 MMOL/L (21-32) Anion Gap 9 mmol/L (5-15) Blood Urea Nitrogen 8 mg/dL (7-18) Creatinine 0.9 MG/DL (0.55-1.30) Estimat Glomerular Filtration Rate > 60 mL/min (>60) Glucose Level 78 MG/DL (74-106) Calcium Level 7.8 MG/DL (8.5-10.1) L Phosphorus Level 2.2 MG/DL (2.5-4.9) L Magnesium Level 1.9 MG/DL (1.8-2.4) Total Bilirubin 0.2 MG/DL (0.2-1.0) Aspartate Amino Transf (AST/SGOT) 59 U/L (15-37) H Alanine Aminotransferase (ALT/SGPT) 58 U/L (12-78) Alkaline Phosphatase 128 U/L (46-116) H C-Reactive Protein, Quantitative 21.8 mg/dL (0.00-0.90) H Pro-B-Type Natriuretic Peptide 3616 pg/mL (0-125) H Total Protein 5.2 G/DL (6.4-8.2) L Albumin 1.5 G/DL (3.4-5.0) L Globulin 3.7 g/dL Albumin/Globulin Ratio 0.4 (1.0-2.7) L Microbiology Date/Time Source Procedure Growth Status 11/01/19 20:55 Blood Blood Culture - Preliminary NO GROWTH AFTER 24 HOURS Resulted 11/01/19 20:45 Blood Blood Culture - Preliminary NO GROWTH AFTER 24 HOURS Resulted Intake and Output 11/02/19 11/03/19 19:00 07:00 Intake Total 1772.08 ml 1765 ml Output Total 1050 ml 900 ml Balance 722.08 ml 865 ml IV Total 1552.08 ml 1555 ml Tube Feeding 120 ml 100 ml Other 100 ml 110 ml Output Urine Total 1050 ml 900 ml # Bowel Movements 1 1 Objective PHYSICAL EXAMINATION: VITAL SIGNS: Temperature 98.1, respirations 25, pulse 92, blood pressure 95/59. GENERAL: The patient is well-developed, well-nourished male, who is intubated and sedated. HEENT: Eyes, pupils are equal and responsive to light and accommodation. Extraocular movements are intact. NECK: Supple without lymphadenopathy. CHEST: Mech vent; Coarse mechanical breath sounds bilaterally without wheezes or rales. CARDIOVASCULAR: Regular rhythm and rate. S1, S2 are normal without murmurs, rubs, or gallops. ABDOMEN: Soft, nontender, and nondistended. Positive bowel sounds. No evidence of hepatosplenomegaly. Currently, no rebound or guarding noted. EXTREMITIES: Negative for clubbing, cyanosis, or edema. RECTAL/GENITAL: Not performed. NEUROLOGICAL: Unable to assess. Assessment/Plan Assessment/Plan ASSESSMENT: This is a 73-year-old male. 1. Respiratory failure. 2. Pneumonia. 3. Esophageal cancer. 4. Diabetes type 2. 5. Hypertension. 6. Hypercholesterolemia. 7. Atrial fibrillation. 8. Hypothyroidism. 9. Dysphagia. 10. History of prostate cancer. TREATMENT: 1. Pneumonia/respiratory failure. A Pulmonary consultation has been obtained with Dr. Jackie Kaiser. empirically on intravenous vancomycin, linezolid and amikacin. An Infectious Disease consultation has been obtained with Dr. Yifan Rivera. We will follow recommendations of Infectious Disease and Pulmonary. COVID 19=neg 2. Esophageal cancer. 3. Diabetes type 2. A NovoLog sliding scale has been instituted. 4. Hypertension. The patient is currently hypotensive and probable sepsis. 5. Hypercholesterolemia. Continue atorvastatin as above. 6. Atrial fibrillation. Continue amiodarone as above. 7. Hypothyroidism. Continue levothyroxine as above. 8. Dysphagia, status post PEG placement. 9. History of prostate cancer. Gallito Turcios MD Nov 03, 2019 18:16
--- NOTE | 2019-11-03 19:15 | NUR ---
HAND-OFF: Report and PT given to VENKAT Onofre.
--- NOTE | 2019-11-03 19:16 | NUR ---
NURSE NOTES: Received patient from VENKAT Chávez. Will continue plan of care.
--- NOTE | 2019-11-03 19:18 | NUR ---
RESPIRATORY NOTE: Received pt on AC 16, 600VT, 40%, no PEEP. Pt intubated w/ ETT 7.5 @ 23cm lipline, secured by anchorfast. Pt is asleep, responds to stimuli. B/S marcy. rhonchi, sxn moderate to large amounts of thick/frothy, pale-yellow to harrell-yellow secretions w/ occasional red specks. Vent plugged into red outlet, ambubag at bedside. Pt in no apparent distress at this time. Will continue to monitor pt.
--- NOTE | 2019-11-03 19:50 | Cardiology Progress Note ---
Assessment/Plan Problem List: (1) Respiratory failure (2) Influenza A (3) COPD (chronic obstructive pulmonary disease) (4) Pneumonia Status: stable, unchanged Status Narrative Hemodynamically improving, BP stable, off pressors eCHO noted- normal LV systolic function. Remains on vent support. XR w/ bilat infiltrates (11/01). BNP elevated and i/os + appx 9 L since adm On tamiflu and antibiotics per ID. Assessment/Plan Continue current management. CXR c/w bilateral pneumonia. LV systolic function normal, ? diastolic dysfunction Consider low dose lasix. Followup cxr, labs in am Subjective ROS Limited/Unobtainable: Yes Subjective Cardiology for Dr. Slade Intubated, sedated Objective Last 24 Hour Vital Signs Date Time Temp Pulse Resp B/P (MAP) Pulse Ox O2 Delivery O2 Flow Rate FiO2 11/03/19 19:15 58 16 40 11/03/19 19:00 62 16 125/62 (83) 91 62 11/03/19 18:00 81 19 146/73 (97) 93 81 11/03/19 17:17 80 23 40 11/03/19 17:00 75 21 139/79 (99) 96 75 11/03/19 16:00 81 11/03/19 16:00 98.5 78 16 130/59 (82) 96 78 11/03/19 16:00 40 11/03/19 16:00 Mechanical Ventilator 11/03/19 15:00 78 19 137/91 (106) 95 78 11/03/19 14:40 75 17 40 11/03/19 14:00 78 18 133/73 (93) 95 78 11/03/19 13:02 79 23 40 11/03/19 13:00 75 22 131/72 (91) 95 75 11/03/19 12:00 98.4 74 18 133/68 (89) 93 74 11/03/19 12:00 75 11/03/19 12:00 Mechanical Ventilator 11/03/19 12:00 40 11/03/19 11:19 77 20 40 11/03/19 11:00 74 17 130/103 (112) 91 74 11/03/19 10:00 78 17 113/58 (76) 92 78 11/03/19 09:24 62 16 40 11/03/19 09:00 62 16 107/58 (74) 94 62 11/03/19 08:00 67 11/03/19 08:00 98.1 61 16 110/57 (74) 93 61 11/03/19 08:00 Mechanical Ventilator 11/03/19 08:00 40 11/03/19 07:13 71 21 40 11/03/19 07:00 68 16 115/59 (77) 92 11/03/19 06:30 70 203 11/03/19 06:00 74 17 108/56 (73) 92 11/03/19 05:10 80 17 40 11/03/19 05:00 78 18 119/56 (77) 92 78 11/03/19 04:00 98.3 69 16 107/52 (70) 92 69 11/03/19 04:00 40 11/03/19 04:00 69 11/03/19 04:00 Mechanical Ventilator 11/03/19 03:08 67 16 40 11/03/19 03:00 68 16 119/56 (77) 92 11/03/19 02:00 69 16 104/53 (70) 93 11/03/19 01:00 69 16 99/68 (78) 91 11/03/19 01:00 79 16 40 11/03/19 00:00 40 11/03/19 00:00 98.3 66 16 103/53 (70) 95 11/03/19 00:00 66 11/03/19 00:00 Mechanical Ventilator 11/02/19 23:04 73 16 40 11/02/19 23:00 66 16 125/67 (86) 92 11/02/19 22:00 75 16 99/53 (68) 92 11/02/19 21:30 82 18 40 11/02/19 21:00 79 16 117/63 (81) 93 11/02/19 20:00 Mechanical Ventilator 11/02/19 20:00 40 11/02/19 20:00 99.0 89 21 137/73 (94) 94 General Appearance: on vent, other - sedated Neck: supple, no JVD Rhythm: SB Cardiovascular: regular rhythm, no gallop/murmur, bradycardia Respiratory/Chest: lungs clear - clear anteriorly Abdomen: non tender, soft Extremities: no swelling Intake and Output 11/02/19 11/03/19 19:00 07:00 Intake Total 1772.08 ml 1765 ml Output Total 1050 ml 900 ml Balance 722.08 ml 865 ml IV Total 1552.08 ml 1555 ml Tube Feeding 120 ml 100 ml Other 100 ml 110 ml Output Urine Total 1050 ml 900 ml # Bowel Movements 1 1 Laboratory Tests Test 11/03/19 05:00 White Blood Count 8.8 K/UL (4.8-10.8) Red Blood Count 3.05 M/UL (4.70-6.10) L Hemoglobin 8.5 G/DL (14.2-18.0) L Hematocrit 26.0 % (42.0-52.0) L Mean Corpuscular Volume 85 FL (80-99) Mean Corpuscular Hemoglobin 27.7 PG (27.0-31.0) Mean Corpuscular Hemoglobin Concent 32.5 G/DL (32.0-36.0) Red Cell Distribution Width 15.8 % (11.6-14.8) H Platelet Count 200 K/UL (150-450) Mean Platelet Volume 5.1 FL (6.5-10.1) L Neutrophils (%) (Auto) 70.4 % (45.0-75.0) Lymphocytes (%) (Auto) 12.0 % (20.0-45.0) L Monocytes (%) (Auto) 14.2 % (1.0-10.0) H Eosinophils (%) (Auto) 2.3 % (0.0-3.0) Basophils (%) (Auto) 1.1 % (0.0-2.0) Erythrocyte Sedimentation Rate 122 MM/HR (0-20) H Sodium Level 143 MMOL/L (136-145) Potassium Level 3.3 MMOL/L (3.5-5.1) L Chloride Level 111 MMOL/L (98-107) H Carbon Dioxide Level 23 MMOL/L (21-32) Anion Gap 9 mmol/L (5-15) Blood Urea Nitrogen 8 mg/dL (7-18) Creatinine 0.9 MG/DL (0.55-1.30) Estimat Glomerular Filtration Rate > 60 mL/min (>60) Glucose Level 78 MG/DL (74-106) Calcium Level 7.8 MG/DL (8.5-10.1) L Phosphorus Level 2.2 MG/DL (2.5-4.9) L Magnesium Level 1.9 MG/DL (1.8-2.4) Total Bilirubin 0.2 MG/DL (0.2-1.0) Aspartate Amino Transf (AST/SGOT) 59 U/L (15-37) H Alanine Aminotransferase (ALT/SGPT) 58 U/L (12-78) Alkaline Phosphatase 128 U/L (46-116) H C-Reactive Protein, Quantitative 21.8 mg/dL (0.00-0.90) H Pro-B-Type Natriuretic Peptide 3616 pg/mL (0-125) H Total Protein 5.2 G/DL (6.4-8.2) L Albumin 1.5 G/DL (3.4-5.0) L Globulin 3.7 g/dL Albumin/Globulin Ratio 0.4 (1.0-2.7) L Microbiology Date/Time Source Procedure Growth Status 11/01/19 20:55 Blood Blood Culture - Preliminary NO GROWTH AFTER 24 HOURS Resulted 11/01/19 20:45 Blood Blood Culture - Preliminary NO GROWTH AFTER 24 HOURS Resulted Jayde Monzon MD Nov 03, 2019 19:50
--- NOTE | 2019-11-03 20:00 | NUR ---
NURSE NOTES: Patient is intubated. ETT 7.5 @ 23cm to the right lipline to vent settings of AC:16, TV:600, FiO2:40%, O2:96%. GTube feeding of Jevity @ 20ml/hr, will set to goal of 360ml/hr as tolerated. Right femoral TLC running NS @ 100ml/hr. Non-violent bilateral soft wrist restraints in place for safety as patient tries pulling on medical devices. Patient awakes to voice, alert and oriented x1 at the moment. Patient is drowsy and goes back to sleep. Safety measures in place; bed low, locked and alarm is on. Will continue plan of care.
[2019-11-03] MEDS: Dyna-Hex 2% Top Sol 2oz TOPIC SCH (20:40)
--- NOTE | 2019-11-03 22:00 | NUR ---
NURSE NOTES: Patient is sleeping, vital signs stable. No signs of pain or distress. Safety measures in place. Will continue to monitor.
[2019-11-03] MEDS: Amikacin 1,000 MG in NS 110 ML IV SCH (23:12)
[2019-11-03] MEDS: Ertapenem 1 GM in NS 55 ML IV SCH (23:13)
[2019-11-04] VITALS (24 sets, daily range): BP systolic 106–145; BP diastolic 55–97
--- NOTE | 2019-11-04 | NUR ---
NURSE NOTES: Patient awakens to stimuli. Turned and repositioned. Feeding increased to goal (30ml/hr), no residual and patient is tolerating well. BP:120/60, HR:65, RESP:17, O2:95%.
--- NOTE | 2019-11-04 02:00 | NUR ---
NURSE NOTES: Bed bath, linen change, oral care, suctioning and turn/reposition provided. Patient is awake and stable. Safety measures on.
--- NOTE | 2019-11-04 04:00 | NUR ---
NURSE NOTES: Patient is awake and calm. Blood drawn via right femoral TLC for AM labs. Vital signs stable.
[2019-11-04 05:43] LABS: BASOPHILS % (AUTO) 1.4 % (0.0-2.0); EOSINOPHILS % (AUTO) 3.1 % (0.0-3.0); HEMATOCRIT 27.6 % (42.0-52.0); HEMOGLOBIN 8.9 G/DL (14.2-18.0); MEAN CORPUSCULAR VOLUME 84 FL (80-99); MONOCYTES % (AUTO) 16.8 % (1.0-10.0); NEUTROPHILS % (AUTO) 62.7 % (45.0-75.0); PLATELET COUNT 224 K/UL (150-450); RED BLOOD COUNT 3.29 M/UL (4.70-6.10); RED CELL DISTRIBUTION WIDTH 15.7 % (11.6-14.8); WHITE BLOOD COUNT 7.6 K/UL (4.8-10.8)
--- NOTE | 2019-11-04 06:00 | NUR ---
NURSE NOTES: Turned and repositioned. Feeding turned off for Synthroid administration. Safety measures in place.
[2019-11-04 06:34] LABS: ALANINE AMINOTRANSFERASE 54 U/L (12-78); ALBUMIN 1.4 G/DL (3.4-5.0); ALBUMIN/GLOBULIN RATIO 0.4 (1.0-2.7); ALKALINE PHOSPHATASE 134 U/L (46-116); ANION GAP 13 mmol/L (5-15); ASPARTATE AMINO TRANSFERASE 52 U/L (15-37); BILIRUBIN,TOTAL 0.2 MG/DL (0.2-1.0); BLOOD UREA NITROGEN 6 mg/dL (7-18); CALCIUM 6.4 MG/DL (8.5-10.1); CARBON DIOXIDE 19 MMOL/L (21-32); CHLORIDE 111 MMOL/L (98-107); CREATININE 0.9 MG/DL (0.55-1.30); PHOSPHORUS 2.7 MG/DL (2.5-4.9); POTASSIUM 4.1 MMOL/L (3.5-5.1); SODIUM 143 MMOL/L (136-145)
--- NOTE | 2019-11-04 07:26 | NUR ---
HAND-OFF: Report given to VENKAT Geiger.
--- NOTE | 2019-11-04 07:35 | NUR ---
NURSE NOTES: LATE ENTRY: RECEIVED REPORT FROM JOSH Valentino PT RESTING IN BED. OPENS EYES SPONTANEOUSLY. THAI SPEAKING. 3MM SLUGGISH. ETTUBE 7.5, 23CM AT LIP. VENT SETTING: AC 14, VT 600, FI02 40%. AFEBRILE. S1S2 PRESENT. GT PATENT, TUBE FEEDING JEVITY 30ML/HR. 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 ABDOMEN LARGE, ROUND. BOWEL SOUNDS HYPOACTIVE IN ALL FOUR QUADRANTS. SCANLON DRAINING. PULSES WEAK. BILATERAL SOFT WRIST RESTRAINTS NOTED. CIRCULATION CHECK CONDUCTED. IV ACCESS RT FEMORAL TLC, RT HAND 18G, LT WRIST 22G. NS AT 100 ML/HR. SEE- SKIN ASSESSMENT. BED ALARM ON, LOCKED, IN LOWEST POSITION. CALL LIGHT IN REACH. DROPLET AND STANDARD PRECAUTIONS IN PLACE. WILL CONTINUE TO IMPLEMENT PLAN OF CARE.
--- NOTE | 2019-11-04 08:00 | NUR ---
NURSE NOTES: LATE ENTRY: RADIOLOGY HERE TO DO CXR. PT STABLE IN NO ACUTE DISTRESS.
[2019-11-04] MEDS: Heparin 5000 units/ml inj SUBQ SCH ×2 (09:00→20:40)
--- NOTE | 2019-11-04 09:29 | Infectious Diseases Prog Note ---
Assessment/Plan Assessment/Plan A: Afebrile Leukocytosis, neutrophil predominant Septic shock, sp off of pressors PNA Influenza A Probable superimposed bacterial PNA SARS CoV PCR negative CXR: Bilateral mostly nodular mostly interstitial disease, as described. This could represent interstitial pneumonia or edema, among many other possibilities. However, given the nodular appearance and the presence of an infusion catheter the possibility of nodular metastatic disease should also be considered. Unlikely UTI UA 10-15 WBC UCX: NG VRE bacteremia BCx: VRE 10/29 TTE: focal aortic valve sclerosis with adequate cusp excursion. thickened mitral valve leaflets with normal excursion. mild mitral annulus and aortic root calcification. normal TV. no MR. mild TR. PV not visualized. QTc 552 Afib COPD Hypothyroid Dyslipidemia HTN DM Anemia CVA G tube, h/o abscess complication head and neck cancer Plan: Tamiflu #5/. Linezolid #3 DC amikacin and ertapenem #4 11/01 SP Vanc #3 monitor temp and CBC monitor resp status droplet and contact isolation f/u bcx TTE without severe valve insufficiency and bacteremia low grade. recommend repeating bcx at end of therapy to ensure resolution fo bacteremia DW RN Thank you for this consult. [facility] Will continue to follow the patient with you. Subjective Allergies: Coded Allergies: No Known Allergies (Unverified , 10/30/19) Subjective Afebrile. moderate secretions. Objective Vital Signs Last 24 Hour Vital Signs Date Time Temp Pulse Resp B/P (MAP) Pulse Ox O2 Delivery O2 Flow Rate FiO2 11/04/19 07:41 78 17 94 Mechanical Ventilator 40 11/04/19 07:39 80 19 40 11/04/19 07:00 73 17 134/67 (89) 95 11/04/19 06:30 76 17 11/04/19 06:00 73 17 137/67 (90) 95 11/04/19 05:17 71 19 40 11/04/19 05:00 76 16 138/67 (90) 93 11/04/19 04:00 97.9 76 19 131/81 (98) 92 11/04/19 04:00 Mechanical Ventilator 11/04/19 04:00 40 11/04/19 03:20 72 11/04/19 03:00 66 17 135/59 (84) 94 11/04/19 02:47 77 19 40 11/04/19 02:00 75 20 122/66 (84) 89 11/04/19 01:00 69 18 124/60 (81) 93 11/04/19 00:51 66 17 40 11/04/19 00:00 97.8 60 16 120/60 (80) 93 11/04/19 00:00 Mechanical Ventilator 11/03/19 23:16 66 11/03/19 23:14 70 20 40 11/03/19 23:00 58 16 132/62 (85) 95 11/03/19 22:00 67 17 117/59 (78) 94 67 11/03/19 22:00 135/62 11/03/19 21:27 68 11/03/19 21:00 68 17 135/62 (86) 96 68 11/03/19 20:53 65 16 40 11/03/19 20:00 Mechanical Ventilator 11/03/19 20:00 40 11/03/19 20:00 98.2 56 16 132/64 (86) 96 56 11/03/19 19:15 58 16 40 11/03/19 19:00 62 16 125/62 (83) 91 62 11/03/19 18:00 81 19 146/73 (97) 93 81 11/03/19 17:17 80 23 40 11/03/19 17:00 75 21 139/79 (99) 96 75 11/03/19 16:00 81 11/03/19 16:00 98.5 78 16 130/59 (82) 96 78 11/03/19 16:00 40 11/03/19 16:00 Mechanical Ventilator 11/03/19 15:00 78 19 137/91 (106) 95 78 11/03/19 14:40 75 17 40 11/03/19 14:00 78 18 133/73 (93) 95 78 11/03/19 13:02 79 23 40 11/03/19 13:00 75 22 131/72 (91) 95 75 11/03/19 12:00 98.4 74 18 133/68 (89) 93 74 11/03/19 12:00 75 11/03/19 12:00 Mechanical Ventilator 11/03/19 12:00 40 11/03/19 11:19 77 20 40 11/03/19 11:00 74 17 130/103 (112) 91 74 11/03/19 10:00 78 17 113/58 (48) 92 78 Height (Feet): 6 Height (Inches): 1.00 Weight (Pounds): 152 Objective Gen: NAD. intubated. well nourished HEENT: ETT. CV: S1+S2. Resp: coarse. regular. equal chest rise. no wheezes Abd: soft. G tube. nondistended. Skin: warm. dry. Neuro: sedated Microbiology Date/Time Source Procedure Growth Status 11/01/19 20:55 Blood Blood Culture - Preliminary NO GROWTH AFTER 48 HOURS Resulted 11/01/19 20:45 Blood Blood Culture - Preliminary NO GROWTH AFTER 48 HOURS Resulted Laboratory Tests Test 11/04/19 04:00 White Blood Count 7.6 K/UL (4.8-10.8) Red Blood Count 3.29 M/UL (4.70-6.10) L Hemoglobin 8.9 G/DL (14.2-18.0) L Hematocrit 27.6 % (42.0-52.0) L Mean Corpuscular Volume 84 FL (80-99) Mean Corpuscular Hemoglobin 27.2 PG (27.0-31.0) Mean Corpuscular Hemoglobin Concent 32.5 G/DL (32.0-36.0) Red Cell Distribution Width 15.7 % (11.6-14.8) H Platelet Count 224 K/UL (150-450) Mean Platelet Volume 5.0 FL (6.5-10.1) L Neutrophils (%) (Auto) 62.7 % (45.0-75.0) Lymphocytes (%) (Auto) 16.0 % (20.0-45.0) L Monocytes (%) (Auto) 16.8 % (1.0-10.0) H Eosinophils (%) (Auto) 3.1 % (0.0-3.0) H Basophils (%) (Auto) 1.4 % (0.0-2.0) Erythrocyte Sedimentation Rate 122 MM/HR (0-20) H Sodium Level 143 MMOL/L (136-145) Potassium Level 4.1 MMOL/L (3.5-5.1) Chloride Level 111 MMOL/L (98-107) H Carbon Dioxide Level 19 MMOL/L (21-32) L Anion Gap 13 mmol/L (5-15) Blood Urea Nitrogen 6 mg/dL (7-18) L Creatinine 0.9 MG/DL (0.55-1.30) Estimat Glomerular Filtration Rate > 60 mL/min (>60) Glucose Level 80 MG/DL (74-106) Calcium Level 6.4 MG/DL (8.5-10.1) L Phosphorus Level 2.7 MG/DL (2.5-4.9) Magnesium Level 1.8 MG/DL (1.8-2.4) Total Bilirubin 0.2 MG/DL (0.2-1.0) Aspartate Amino Transf (AST/SGOT) 52 U/L (15-37) H Alanine Aminotransferase (ALT/SGPT) 54 U/L (12-78) Alkaline Phosphatase 134 U/L (46-116) H C-Reactive Protein, Quantitative 16.7 mg/dL (0.00-0.90) H Total Protein 5.2 G/DL (6.4-8.2) L Albumin 1.4 G/DL (3.4-5.0) L Globulin 3.8 g/dL Albumin/Globulin Ratio 0.4 (1.0-2.7) L Current Medications Medications (Trade) Dose Ordered Sig/Tasha Route PRN Reason Start Time Stop Time Status Last Admin Dose Admin Acetaminophen (Tylenol) 650 mg Q4H PRN ORAL fever 10/30/19 11:15 11/29/19 11:14 Albuterol/ Ipratropium (Albuterol/ Ipratropium) 3 ml Q4H PRN HHN Shortness of Breath 10/30/19 11:15 11/04/19 11:14 Amikacin Sulfate 1000 mg/Sodium Chloride 114 ml @ 114 mls/hr Q36H IV 11/02/19 11:00 11/09/19 10:59 11/03/19 23:12 Amiodarone HCl (Cordarone) 100 mg DAILY PEG 11/04/19 09:00 01/29/20 08:59 Chlorhexidine Gluconate (Megan-Hex 2%) 1 applic DAILY@2000 TOPIC 11/01/19 20:00 01/30/20 19:59 11/03/19 20:40 Ertapenem 1 gm/ Sodium Chloride 55 ml @ 110 mls/hr Q24H IV 10/31/19 00:00 11/05/19 00:00 11/03/19 23:13 Heparin Sodium (Porcine) (Heparin 5000 units/ml) 5,000 units EVERY 12 HOURS SUBQ 11/02/19 09:00 12/17/19 08:59 11/02/19 20:29 Levothyroxine Sodium (Synthroid) 50 mcg DAILY@0630 GT 10/31/19 06:30 11/30/19 06:29 11/04/19 06:39 Linezolid 300 ml @ 300 mls/hr Q12HR IVPB 11/02/19 13:30 11/09/19 13:29 11/03/19 20:39 Lorazepam (Ativan 2mg/ml 1ml) 2 mg Q2H PRN IV For Anxiety 10/30/19 11:15 11/06/19 11:14 11/03/19 18:15 Morphine Sulfate (Morphine Sulfate) 4 mg Q4H PRN IVP Severe Pain (Pain Scale 7-10) 10/30/19 11:15 11/06/19 11:14 10/30/19 23:48 Norepinephrine Bitartrate 4 mg/ Dextrose 254 ml @ 0 mls/hr Q24H IV 10/30/19 22:00 11/29/19 21:59 11/01/19 23:54 Ondansetron HCl (Zofran) 4 mg Q6H PRN IVP Nausea & Vomiting 10/30/19 11:15 11/29/19 11:14 Oseltamivir Phosphate (Tamiflu) 75 mg BID ORAL 11/02/19 09:00 11/05/19 08:59 11/03/19 18:15 Pantoprazole (Protonix) 40 mg DAILY IVP 10/31/19 09:00 11/30/19 08:59 11/03/19 09:31 Polyethylene Glycol (Miralax) 17 gm DAILYPRN PRN ORAL Constipation 10/30/19 11:15 11/29/19 11:14 Quetiapine Fumarate (SEROqueL) 100 mg Q12HR GT 10/30/19 23:00 12/14/19 22:59 11/03/19 20:40 Sodium Chloride 1,000 ml @ 100 mls/hr Q10H IVLG 10/30/19 11:10 11/29/19 11:09 11/04/19 00:15 Yifan Rivera MD Nov 04, 2019 09:29
[2019-11-04] MEDS: Pantoprazole Inj IVP SCH (09:54)
[2019-11-04] MEDS: Amiodarone 200mg tab PEG SCH (09:54)
[2019-11-04] MEDS: Oseltamivir 75mg cap ORAL SCH ×2 (09:55→17:00)
--- NOTE | 2019-11-04 10:08 | Pulmonolgy Critical Care Note ---
Critical Care - Asmt/Plan Problems: (1) Acute respiratory failure (2) Septic shock (3) Enterococcal bacteremia (4) Nosocomial pneumonia (5) COPD (chronic obstructive pulmonary disease) (6) Atrial fibrillation (7) Severe anemia (8) Suspected 2019-nCoV infection (9) Hypothyroidism (10) Psychosis Respiratory: monitor respiratory rate, adjust FIO2, CXR Cardiac: continue to monitor HR/BP Renal: F/U I&O, keep IV fluid, check electrolytes Infectious Disease: check cultures, continue antibiotics Gastrointestinal: continue feedings/current rate Endocrine: monitor blood sugar Hematologic: monitor H/H, transfuse if hgb<8.5 Neurologic: PRN Ativan, keep patient comfortable Prophylaxis: Heparin Disposition: keep in ICU Notes Reviewed: cardio, renal Discussed with: nurses, consultants, rehabilitation caseworkershowplace manager - Objective Last 24 Hour Vital Signs Date Time Temp Pulse Resp B/P (MAP) Pulse Ox O2 Delivery O2 Flow Rate FiO2 11/04/19 07:41 78 17 94 Mechanical Ventilator 40 11/04/19 07:39 80 19 40 11/04/19 07:00 73 17 134/67 (89) 95 11/04/19 06:30 76 17 11/04/19 06:00 73 17 137/67 (90) 95 11/04/19 05:17 71 19 40 11/04/19 05:00 76 16 138/67 (90) 93 11/04/19 04:00 97.9 76 19 131/81 (98) 92 11/04/19 04:00 Mechanical Ventilator 11/04/19 04:00 40 11/04/19 03:20 72 11/04/19 03:00 66 17 135/59 (84) 94 11/04/19 02:47 77 19 40 11/04/19 02:00 75 20 122/66 (84) 89 11/04/19 01:00 69 18 124/60 (81) 93 11/04/19 00:51 66 17 40 11/04/19 00:00 97.8 60 16 120/60 (80) 93 11/04/19 00:00 Mechanical Ventilator 11/03/19 23:16 66 11/03/19 23:14 70 20 40 11/03/19 23:00 58 16 132/62 (85) 95 11/03/19 22:00 67 17 117/59 (78) 94 67 11/03/19 22:00 135/62 11/03/19 21:27 68 11/03/19 21:00 68 17 135/62 (86) 96 68 11/03/19 20:53 65 16 40 11/03/19 20:00 Mechanical Ventilator 11/03/19 20:00 40 11/03/19 20:00 98.2 56 16 132/64 (86) 96 56 11/03/19 19:15 58 16 40 11/03/19 19:00 62 16 125/62 (83) 91 62 11/03/19 18:00 81 19 146/73 (97) 93 81 11/03/19 17:17 80 23 40 11/03/19 17:00 75 21 139/79 (99) 96 75 11/03/19 16:00 81 11/03/19 16:00 98.5 78 16 130/59 (82) 96 78 11/03/19 16:00 40 11/03/19 16:00 Mechanical Ventilator 11/03/19 15:00 78 19 137/91 (106) 95 78 11/03/19 14:40 75 17 40 11/03/19 14:00 78 18 133/73 (93) 95 78 11/03/19 13:02 79 23 40 11/03/19 13:00 75 22 131/72 (91) 95 75 11/03/19 12:00 98.4 74 18 133/68 (89) 93 74 11/03/19 12:00 75 11/03/19 12:00 Mechanical Ventilator 11/03/19 12:00 40 11/03/19 11:19 77 20 40 11/03/19 11:00 74 17 130/103 (112) 91 74 Status: awake Condition: critical HEENT: atraumatic, normocephalic Lungs: chest wall tender Heart: HR/BP stable Abdomen: soft, non-tender Extremities: no C/C/E Micro: Microbiology Date/Time Source Procedure Growth Status 11/01/19 20:55 Blood Blood Culture - Preliminary NO GROWTH AFTER 48 HOURS Resulted 11/01/19 20:45 Blood Blood Culture - Preliminary NO GROWTH AFTER 48 HOURS Resulted Critical Care - Subjective ROS Limited/Unobtainable: No Condition: critical EKG Rhythm: Sinus Rhythm FI02: 40 Vent Support Breath Rate: 16 Vent Support Mode: AC Vent Tidal Volume: 600 Sputum Amount: Moderate PEEP: 0.0 PIP: 47 Tube Feeding Amount: 30 I&O: Intake and Output 11/03/19 11/04/19 19:00 07:00 Intake Total 1946.6667 ml 2034 ml Output Total 710 ml 1200 ml Balance 1236.6667 ml 834 ml Intake Free Water 30 ml IV Total 1781.6667 ml 1644 ml Tube Feeding 165 ml 300 ml Other 60 ml Output Urine Total 710 ml 1200 ml # Bowel Movements 2 2 CXR: worsening LLL infiltrate, ET-Tube: 7.5 ET Position: 23 Labs: Laboratory Tests Test 11/04/19 04:00 White Blood Count 7.6 K/UL (4.8-10.8) Red Blood Count 3.29 M/UL (4.70-6.10) L Hemoglobin 8.9 G/DL (14.2-18.0) L Hematocrit 27.6 % (42.0-52.0) L Mean Corpuscular Volume 84 FL (80-99) Mean Corpuscular Hemoglobin 27.2 PG (27.0-31.0) Mean Corpuscular Hemoglobin Concent 32.5 G/DL (32.0-36.0) Red Cell Distribution Width 15.7 % (11.6-14.8) H Platelet Count 224 K/UL (150-450) Mean Platelet Volume 5.0 FL (6.5-10.1) L Neutrophils (%) (Auto) 62.7 % (45.0-75.0) Lymphocytes (%) (Auto) 16.0 % (20.0-45.0) L Monocytes (%) (Auto) 16.8 % (1.0-10.0) H Eosinophils (%) (Auto) 3.1 % (0.0-3.0) H Basophils (%) (Auto) 1.4 % (0.0-2.0) Erythrocyte Sedimentation Rate 122 MM/HR (0-20) H Sodium Level 143 MMOL/L (136-145) Potassium Level 4.1 MMOL/L (3.5-5.1) Chloride Level 111 MMOL/L (98-107) H Carbon Dioxide Level 19 MMOL/L (21-32) L Anion Gap 13 mmol/L (5-15) Blood Urea Nitrogen 6 mg/dL (7-18) L Creatinine 0.9 MG/DL (0.55-1.30) Estimat Glomerular Filtration Rate > 60 mL/min (>60) Glucose Level 80 MG/DL (74-106) Calcium Level 6.4 MG/DL (8.5-10.1) L Phosphorus Level 2.7 MG/DL (2.5-4.9) Magnesium Level 1.8 MG/DL (1.8-2.4) Total Bilirubin 0.2 MG/DL (0.2-1.0) Aspartate Amino Transf (AST/SGOT) 52 U/L (15-37) H Alanine Aminotransferase (ALT/SGPT) 54 U/L (12-78) Alkaline Phosphatase 134 U/L (46-116) H C-Reactive Protein, Quantitative 16.7 mg/dL (0.00-0.90) H Total Protein 5.2 G/DL (6.4-8.2) L Albumin 1.4 G/DL (3.4-5.0) L Globulin 3.8 g/dL Albumin/Globulin Ratio 0.4 (1.0-2.7) L Jackie Kaiser MD Nov 04, 2019 10:08
--- NOTE | 2019-11-04 10:20 | NUR ---
NURSE NOTES: MD EWING HERE TO SEE PT. NO WEAN ORDERS DUE TO CXR RESULTS. INFORMED THAT SECRETIONS THICK, PINK TINGED, CORTEZ. SATING 97%. OCCULT STOOL POSITIVE.
--- NOTE | 2019-11-04 10:56 | Diagnostic Imaging Report ---
Indication: Dyspnea Technique: One view of the chest Comparison: For 11/18/2019 Findings: There is again demonstrated bilateral diffuse interstitial and airspace disease. Consolidation in the left mid and lower lung appears to have increased in density. Disease in the left upper lung and right lung appears unchanged. Stable satisfactory positions of endotracheal tube, right chest port catheter. There may be some pleural fluid developing on the left. Impression: Worsening dense consolidation of the left mid and lower lung on a background of diffuse and extensive bilateral interstitial and airspace disease Possible developing left pleural effusion
--- NOTE | 2019-11-04 12:14 | NUR ---
NURSE NOTES: RECEIVED CALL FROM RAMONA FOY, WAS UPDATED ON FATHER STATUS. WILL CALL BACK AGAIN THIS EVENING TO CHECK.
--- NOTE | 2019-11-04 12:25 | NUR ---
NURSE NOTES: LATE ENTRY: PT RESTING IN BED. OPENS EYES SPONTANEOUSLY. ETTUBE 7.5, 23CM AT LIP. VENT SETTING: AC 14, VT 600, FI02 40%. AFEBRILE. TUBE FEED JEVITY 30ML/HR. NO BM AT THIS TIME. SCANLON DRAINING, BELOW BLADDER. BILATERAL SOFT WRIST RESTRAINTS SECURE, CIRCULATION CHECK CONDUCTED. RT FEMORAL TLC, RT HAND 18G, LT WRIST 22G. NS AT 100 ML/HR. BED ALARM ON, LOCKED, IN LOWEST POSITION. CALL LIGHT IN REACH. DROPLET AND STANDARD PRECAUTIONS IN PLACE. WILL CONTINUE TO MONITOR PT.
--- NOTE | 2019-11-04 13:08 | Internal Med Progress Note ---
Subjective Date of Service: Nov 04, 2019 Physician Name Gallito Turcios Attending Physician Danny Stark MD Current Medications Medications (Trade) Dose Ordered Sig/Tasha Route PRN Reason Start Time Stop Time Status Last Admin Dose Admin Acetaminophen (Tylenol) 650 mg Q4H PRN ORAL fever 10/30/19 11:15 11/29/19 11:14 Amiodarone HCl (Cordarone) 100 mg DAILY PEG 11/04/19 09:00 01/29/20 08:59 11/04/19 09:54 Chlorhexidine Gluconate (Megan-Hex 2%) 1 applic DAILY@1999 TOPIC 11/01/19 20:00 01/30/20 19:59 11/03/19 20:40 Heparin Sodium (Porcine) (Heparin 5000 units/ml) 5,000 units EVERY 12 HOURS SUBQ 11/02/19 09:00 12/17/19 08:59 11/02/19 20:29 Levothyroxine Sodium (Synthroid) 50 mcg DAILY@0630 GT 10/31/19 06:30 11/30/19 06:29 11/04/19 06:39 Linezolid 300 ml @ 300 mls/hr Q12HR IVPB 11/02/19 13:30 11/09/19 13:29 11/04/19 09:53 Lorazepam (Ativan 2mg/ml 1ml) 2 mg Q2H PRN IV For Anxiety 10/30/19 11:15 11/06/19 11:14 11/03/19 18:15 Morphine Sulfate (Morphine Sulfate) 4 mg Q4H PRN IVP Severe Pain (Pain Scale 7-10) 10/30/19 11:15 11/06/19 11:14 10/30/19 23:48 Norepinephrine Bitartrate 4 mg/ Dextrose 254 ml @ 0 mls/hr Q24H IV 10/30/19 22:00 11/29/19 21:59 11/01/19 23:54 Ondansetron HCl (Zofran) 4 mg Q6H PRN IVP Nausea & Vomiting 10/30/19 11:15 11/29/19 11:14 Oseltamivir Phosphate (Tamiflu) 75 mg BID ORAL 11/02/19 09:00 11/05/19 08:59 11/04/19 09:55 Pantoprazole (Protonix) 40 mg DAILY IVP 10/31/19 09:00 11/30/19 08:59 11/04/19 09:54 Polyethylene Glycol (Miralax) 17 gm DAILYPRN PRN ORAL Constipation 10/30/19 11:15 11/29/19 11:14 Quetiapine Fumarate (SEROqueL) 100 mg Q12HR GT 10/30/19 23:00 12/14/19 22:59 11/04/19 09:54 Sodium Chloride 1,000 ml @ 100 mls/hr Q10H IVLG 10/30/19 11:10 11/29/19 11:09 11/04/19 10:00 Allergies: Coded Allergies: No Known Allergies (Unverified , 10/30/19) ROS Limited/Unobtainable: Yes Subjective 73 YO M with history of esophageal cancer admitted with respiratory failure. Cover for Int Med-Dr Stark. ICU. Intubted and sedated Objective Last Vital Signs Date Time Temp Pulse Resp B/P (MAP) Pulse Ox O2 Delivery O2 Flow Rate FiO2 11/04/19 12:00 98.2 83 21 128/66 (86) 90 11/04/19 12:00 40 11/04/19 12:00 Mechanical Ventilator 10/30/19 22:00 15.0 Laboratory Tests Test 11/04/19 04:00 White Blood Count 7.6 K/UL (4.8-10.8) Red Blood Count 3.29 M/UL (4.70-6.10) L Hemoglobin 8.9 G/DL (14.2-18.0) L Hematocrit 27.6 % (42.0-52.0) L Mean Corpuscular Volume 84 FL (80-99) Mean Corpuscular Hemoglobin 27.2 PG (27.0-31.0) Mean Corpuscular Hemoglobin Concent 32.5 G/DL (32.0-36.0) Red Cell Distribution Width 15.7 % (11.6-14.8) H Platelet Count 224 K/UL (150-450) Mean Platelet Volume 5.0 FL (6.5-10.1) L Neutrophils (%) (Auto) 62.7 % (45.0-75.0) Lymphocytes (%) (Auto) 16.0 % (20.0-45.0) L Monocytes (%) (Auto) 16.8 % (1.0-10.0) H Eosinophils (%) (Auto) 3.1 % (0.0-3.0) H Basophils (%) (Auto) 1.4 % (0.0-2.0) Erythrocyte Sedimentation Rate 122 MM/HR (0-20) H Sodium Level 143 MMOL/L (136-145) Potassium Level 4.1 MMOL/L (3.5-5.1) Chloride Level 111 MMOL/L (98-107) H Carbon Dioxide Level 19 MMOL/L (21-32) L Anion Gap 13 mmol/L (5-15) Blood Urea Nitrogen 6 mg/dL (7-18) L Creatinine 0.9 MG/DL (0.55-1.30) Estimat Glomerular Filtration Rate > 60 mL/min (>60) Glucose Level 80 MG/DL (74-106) Calcium Level 6.4 MG/DL (8.5-10.1) L Phosphorus Level 2.7 MG/DL (2.5-4.9) Magnesium Level 1.8 MG/DL (1.8-2.4) Total Bilirubin 0.2 MG/DL (0.2-1.0) Aspartate Amino Transf (AST/SGOT) 52 U/L (15-37) H Alanine Aminotransferase (ALT/SGPT) 54 U/L (12-78) Alkaline Phosphatase 134 U/L (46-116) H C-Reactive Protein, Quantitative 16.7 mg/dL (0.00-0.90) H Total Protein 5.2 G/DL (6.4-8.2) L Albumin 1.4 G/DL (3.4-5.0) L Globulin 3.8 g/dL Albumin/Globulin Ratio 0.4 (1.0-2.7) L Microbiology Date/Time Source Procedure Growth Status 11/01/19 20:55 Blood Blood Culture - Preliminary NO GROWTH AFTER 48 HOURS Resulted 11/01/19 20:45 Blood Blood Culture - Preliminary NO GROWTH AFTER 48 HOURS Resulted Intake and Output 11/03/19 11/04/19 19:00 07:00 Intake Total 1946.6667 ml 2034 ml Output Total 710 ml 1200 ml Balance 1236.6667 ml 834 ml Intake Free Water 30 ml IV Total 1781.6667 ml 1644 ml Tube Feeding 165 ml 300 ml Other 60 ml Output Urine Total 710 ml 1200 ml # Bowel Movements 2 2 Objective PHYSICAL EXAMINATION: VITAL SIGNS: Temperature 98.1, respirations 25, pulse 92, blood pressure 95/59. GENERAL: The patient is well-developed, well-nourished male, who is intubated and sedated. HEENT: Eyes, pupils are equal and responsive to light and accommodation. Extraocular movements are intact. NECK: Supple without lymphadenopathy. CHEST: Mech vent; Coarse mechanical breath sounds bilaterally without wheezes or rales. CARDIOVASCULAR: Regular rhythm and rate. S1, S2 are normal without murmurs, rubs, or gallops. ABDOMEN: Soft, nontender, and nondistended. Positive bowel sounds. No evidence of hepatosplenomegaly. Currently, no rebound or guarding noted. EXTREMITIES: Negative for clubbing, cyanosis, or edema. RECTAL/GENITAL: Not performed. NEUROLOGICAL: Unable to assess. Assessment/Plan Assessment/Plan ASSESSMENT: This is a 73-year-old male. 1. Respiratory failure. 2. Pneumonia. 3. Esophageal cancer. 4. Diabetes type 2. 5. Hypertension. 6. Hypercholesterolemia. 7. Atrial fibrillation. 8. Hypothyroidism. 9. Dysphagia. 10. History of prostate cancer. TREATMENT: 1. Pneumonia/respiratory failure. A Pulmonary consultation has been obtained with Dr. Jackie Kaiser. ABX = vancomycin, linezolid and amikacin. An Infectious Disease consultation has been obtained with Dr. Yifan Rivera. We will follow recommendations of Infectious Disease and Pulmonary. COVID 19=neg 2. Esophageal cancer. 3. Diabetes type 2. A NovoLog sliding scale has been instituted. 4. Hypertension. The patient is currently hypotensive and probable sepsis. 5. Hypercholesterolemia. Continue atorvastatin as above. 6. Atrial fibrillation. Continue amiodarone as above. 7. Hypothyroidism. Continue levothyroxine as above. 8. Dysphagia, status post PEG placement. 9. History of prostate cancer. Gallito Turcios MD Nov 04, 2019 13:08
[2019-11-04] MEDS ORDERED: NS 275ml ONE ×2 (13:57→14:08)
[2019-11-04] MEDS ORDERED: Tubing IV Secondary IV ONE (14:08)
[2019-11-04] MEDS ORDERED: Sterile Water Irrig 1000ml IRRIG ONE (14:08)
--- NOTE | 2019-11-04 14:57 | NUR ---
NURSE NOTES: pt suctioned . hr 86bp 129/81. rr 18, o2sat 95%. pt continues to monitor pt.
--- NOTE | 2019-11-04 15:37 | NUR ---
CASE MANAGEMENT: REVIEW SI: RESP FAILURE . PNA . INFLUENZA . COVID-19 VIRUS NOT DETECTED T 98.2 HR 82 RR 21 BP 128/66 SAT 90% MECH VENT FIO2 40 H/H 8.9/27.6 IS: LEVOPHED IV Q24HR (DOSE HELD) ZYVOX IV Q12HR TAMIFLU 75MG ORAL BID UNTIL 11/04 NS IVF @ 100ML/HR GTUBE FEEDING DROPLET ISOLATION ICU STATUS DCP: PATIENT IS FROM [facility]
--- NOTE | 2019-11-04 17:20 | Cardiology Progress Note ---
Assessment/Plan Assessment/Plan 1. Paroxysmal episodes of atrial fibrillation. 2. Respiratory failure. 3. Influenza A positive. covid neg 4. Malignant neoplasm of the larynx. 5. History of hypertension. 6. History of hyperlipidemia. 7. History of hypothyroidism. 8. Respiratory failure on a mechanical ventilator. 9. Diabetes mellitus type 2. 10. Coagulopathy. 11. Abnormal liver function tests. 12. Hypotension likely from sepsis and shock influenza positive off pressor anemic still lft are close to normla wbc nl covid 19 neg prelim echo noted cxr reviewed worsening dense infiltrate ekg reviewed tele reviewed is tolerating feeds will dc ivf may need diuretic Objective Last 24 Hour Vital Signs Date Time Temp Pulse Resp B/P (MAP) Pulse Ox O2 Delivery O2 Flow Rate FiO2 11/04/19 17:00 85 21 136/64 (88) 94 11/04/19 16:00 Mechanical Ventilator 11/04/19 16:00 40 11/04/19 16:00 98.3 84 19 130/67 (88) 93 11/04/19 15:29 84 23 40 11/04/19 15:00 87 18 115/92 (100) 96 11/04/19 14:00 82 21 120/81 (94) 96 11/04/19 13:00 82 16 125/65 (85) 95 11/04/19 12:00 98.2 83 21 128/66 (86) 90 11/04/19 12:00 40 11/04/19 12:00 81 11/04/19 12:00 Mechanical Ventilator 11/04/19 11:52 88 19 40 11/04/19 11:00 87 23 106/63 (77) 84 11/04/19 10:00 76 17 133/68 (89) 11/04/19 09:00 86 22 126/83 (97) 96 11/04/19 08:00 40 11/04/19 08:00 Mechanical Ventilator 11/04/19 08:00 98.2 85 21 145/70 (95) 86 11/04/19 08:00 80 11/04/19 07:41 78 17 94 Mechanical Ventilator 40 11/04/19 07:39 80 19 40 11/04/19 07:00 73 17 134/67 (89) 95 11/04/19 06:30 76 17 11/04/19 06:00 73 17 137/67 (90) 95 11/04/19 05:17 71 19 40 11/04/19 05:00 76 16 138/67 (90) 93 11/04/19 04:00 97.9 76 19 131/81 (98) 92 11/04/19 04:00 Mechanical Ventilator 11/04/19 04:00 40 11/04/19 03:20 72 11/04/19 03:00 66 17 135/59 (84) 94 11/04/19 02:47 77 19 40 11/04/19 02:00 75 20 122/66 (84) 89 11/04/19 01:00 69 18 124/60 (81) 93 11/04/19 00:51 66 17 40 11/04/19 00:00 97.8 60 16 120/60 (80) 93 11/04/19 00:00 Mechanical Ventilator 11/03/19 23:16 66 11/03/19 23:14 70 20 40 11/03/19 23:00 58 16 132/62 (85) 95 11/03/19 22:00 67 17 117/59 (78) 94 67 11/03/19 22:00 135/62 11/03/19 21:27 68 11/03/19 21:00 68 17 135/62 (86) 96 68 11/03/19 20:53 65 16 40 11/03/19 20:00 Mechanical Ventilator 11/03/19 20:00 40 11/03/19 20:00 98.2 56 16 132/64 (86) 96 56 11/03/19 19:15 58 16 40 11/03/19 19:00 62 16 125/62 (83) 91 62 11/03/19 18:00 81 19 146/73 (97) 93 81 Intake and Output 11/03/19 11/04/19 19:00 07:00 Intake Total 1946.6667 ml 2034 ml Output Total 710 ml 1200 ml Balance 1236.6667 ml 834 ml Intake Free Water 30 ml IV Total 1781.6667 ml 1644 ml Tube Feeding 165 ml 300 ml Other 60 ml Output Urine Total 710 ml 1200 ml # Bowel Movements 2 2 Laboratory Tests Test 11/04/19 04:00 White Blood Count 7.6 K/UL (4.8-10.8) Red Blood Count 3.29 M/UL (4.70-6.10) L Hemoglobin 8.9 G/DL (14.2-18.0) L Hematocrit 27.6 % (42.0-52.0) L Mean Corpuscular Volume 84 FL (80-99) Mean Corpuscular Hemoglobin 27.2 PG (27.0-31.0) Mean Corpuscular Hemoglobin Concent 32.5 G/DL (32.0-36.0) Red Cell Distribution Width 15.7 % (11.6-14.8) H Platelet Count 224 K/UL (150-450) Mean Platelet Volume 5.0 FL (6.5-10.1) L Neutrophils (%) (Auto) 62.7 % (45.0-75.0) Lymphocytes (%) (Auto) 16.0 % (20.0-45.0) L Monocytes (%) (Auto) 16.8 % (1.0-10.0) H Eosinophils (%) (Auto) 3.1 % (0.0-3.0) H Basophils (%) (Auto) 1.4 % (0.0-2.0) Erythrocyte Sedimentation Rate 122 MM/HR (0-20) H Sodium Level 143 MMOL/L (136-145) Potassium Level 4.1 MMOL/L (3.5-5.1) Chloride Level 111 MMOL/L (98-107) H Carbon Dioxide Level 19 MMOL/L (21-32) L Anion Gap 13 mmol/L (5-15) Blood Urea Nitrogen 6 mg/dL (7-18) L Creatinine 0.9 MG/DL (0.55-1.30) Estimat Glomerular Filtration Rate > 60 mL/min (>60) Glucose Level 80 MG/DL (74-106) Calcium Level 6.4 MG/DL (8.5-10.1) L Phosphorus Level 2.7 MG/DL (2.5-4.9) Magnesium Level 1.8 MG/DL (1.8-2.4) Total Bilirubin 0.2 MG/DL (0.2-1.0) Aspartate Amino Transf (AST/SGOT) 52 U/L (15-37) H Alanine Aminotransferase (ALT/SGPT) 54 U/L (12-78) Alkaline Phosphatase 134 U/L (46-116) H C-Reactive Protein, Quantitative 16.7 mg/dL (0.00-0.90) H Total Protein 5.2 G/DL (6.4-8.2) L Albumin 1.4 G/DL (3.4-5.0) L Globulin 3.8 g/dL Albumin/Globulin Ratio 0.4 (1.0-2.7) L Microbiology Date/Time Source Procedure Growth Status 11/01/19 20:55 Blood Blood Culture - Preliminary NO GROWTH AFTER 48 HOURS Resulted 11/01/19 20:45 Blood Blood Culture - Preliminary NO GROWTH AFTER 48 HOURS Resulted Carlos Slade MD Nov 04, 2019 17:20
--- NOTE | 2019-11-04 17:23 | NUR ---
NURSE NOTES: pt hygiene complete, one BM loose brown moderate amount. repositioned. on p200 mattress. IV patent. no s/s of infiltration or redness. vss. afebrile. hob 30. no residual for tube feeding. ns running at 100ml/hr. pt on droplet precautions. bed alarm on, bilateral restraints intact. will continue to monitor pt.
--- NOTE | 2019-11-04 17:31 | NUR ---
NURSE NOTES: MD Slade here to see pt. IV NS at 100ml/hr. urine pale, high out put. tube feed at 30ml/hr. no cardiac events, bp stable , no pressors. afebrile. no weaning today, due to cxr and moderate thick secretions. pt sating 92-95%. MD will D/C fluids and give Lasix once.
[2019-11-04] MEDS: LORazepam Inj 2mg/ml 1ml IV PRN (18:07)
--- NOTE | 2019-11-04 18:43 | NUR ---
NURSE NOTES: pt second bm, dark brown, moderate size, loose. pt cleaned and repositioned. vss. suctioned provided. pt non compliant, very anxious. attempting to pull ettube and sliding down in bed. ativan 2mg 1ml, ivp given for anxiety. will continue to monitor pt.
--- NOTE | 2019-11-04 18:59 | NUR ---
HAND-OFF: Report given to Jemima Valentino pt in no acute distress.
--- NOTE | 2019-11-04 19:00 | NUR ---
NURSE NOTES: Received patient from VENKAT Geiger. Will continue plan of care.
--- NOTE | 2019-11-04 20:00 | NUR ---
NURSE NOTES: Patient is intubated. ETT 7.5 @ 23cm to the right lipline to vent settings of AC:16, TV:600, FiO2:40%, O2:93%. GTube feeding of Jevity @ 30ml/hr. Right femoral TLC running NS @ 30ml/hr. Non-violent bilateral soft wrist restraints in place for safety as patient tries pulling on medical devices. Patient awakes to voice, alert and oriented x1 at the moment. Patient is drowsy and goes back to sleep. Safety measures in place; bed low, locked and alarm is on. Will continue plan of care. BP:137/59, HR:65, TEMP:98.6F axillary.
[2019-11-04] MEDS: Dyna-Hex 2% Top Sol 2oz TOPIC SCH (20:37)
--- NOTE | 2019-11-04 22:00 | NUR ---
NURSE NOTES: Patient is sleeping, BP:106/55, HR:68. Suctioning and oral care provided.
[2019-11-05] VITALS (23 sets, daily range): BP systolic 107–150; BP diastolic 56–103
--- NOTE | 2019-11-05 | NUR ---
NURSE NOTES: No changes in patient condition. Turned and repositioned. Suctioning provided.
--- NOTE | 2019-11-05 02:00 | NUR ---
NURSE NOTES: Oral care and suctioning provided. BP:126/64,m HR:76, O2:93%. No other changes.
--- NOTE | 2019-11-05 04:00 | NUR ---
NURSE NOTES: Bed bath given with deon-hex, linens changes, oral care and suctioning provided. Central line dressing changes. Turned and repositioned. Patient is comfortable.
--- NOTE | 2019-11-05 06:00 | NUR ---
NURSE NOTES: Turned and repositioned. Suctioning provided. No changes in condition, patient is awake and alert.
--- NOTE | 2019-11-05 06:45 | NUR ---
RESPIRATORY NOTES: Weaning started at 0640. CPAP PS +8 PEEP +0 FIO2 40%. Patient currently tolerating well. Will continue to monitor.
--- NOTE | 2019-11-05 07:12 | NUR ---
HAND-OFF: Report given to VENKAT Geiger.
--- NOTE | 2019-11-05 07:15 | NUR ---
NURSE NOTES: LATE ENTRY: RECEIVED REPORT FROM JOSH Valentino PT AWAKE, SLIDE DOWN TO FOOT OF BED. OPENS EYES SPONTANEOUSLY. 3MM SLUGGISH. ETTUBE 7.5, 23CM AT LIP. VENT SETTING: AC 14, VT 600, FI02 40%. AFEBRILE. TUBE FEEDING JEVITY 30ML/HR. HELD FOR SYNTHROID CABLE TELEVISION ACCESS COORDINATOR, G-TUBE PATENT, CLAMPED. ABDOMEN ROUND. BOWEL SOUNDS HYPOACTIVE. SCANLON DRAINING, PALE URINE BELOW BLADDER. SECURED TO LEG. PULSES WEAK UPPER AND LOWER EXTREMITIES. BILATERAL SOFT WRIST RESTRAINTS NOTED. CIRCULATION CHECK AND ROM CONDUCTED. IV ACCESS RT FEMORAL TLC. NOTED ONE OF THREE LUMEN PATENT WILL INFORM MD. RT HAND 20G PUFFY. NS AT 30 ML/HR. SKIN- SEE ASSESSMENT. BED ALARM ON, LOCKED, IN LOWEST POSITION. CALL LIGHT WITH IN REACH. DROPLET AND STANDARD PRECAUTIONS INFORCED. WILL CONTINUE TO IMPLEMENT PLAN OF CARE.
[2019-11-05] MEDS: Amiodarone 200mg tab PEG SCH (08:41)
[2019-11-05] MEDS: Pantoprazole Inj IVP SCH (08:41)
[2019-11-05] MEDS: Heparin 5000 units/ml inj SUBQ SCH ×2 (08:41→20:25)
--- NOTE | 2019-11-05 08:46 | NUR ---
RESPIRATORY NOTES: Weaning stopped bc SOB and low saturations <92%
--- NOTE | 2019-11-05 10:13 | Infectious Diseases Prog Note ---
Assessment/Plan Assessment/Plan A: Afebrile Leukocytosis, neutrophil predominant Septic shock, sp off of pressors PNA Influenza A Probable superimposed bacterial PNA SARS CoV PCR negative CXR: Bilateral mostly nodular mostly interstitial disease, as described. This could represent interstitial pneumonia or edema, among many other possibilities. However, given the nodular appearance and the presence of an infusion catheter the possibility of nodular metastatic disease should also be considered. Unlikely UTI UA 10-15 WBC UCX: NG VRE bacteremia BCx: VRE 10/29 TTE: focal AV sclerosis with adequate cusp excursion. thickened MV leaflets with normal excursion. mild mitral annulus and aortic root calcification. normal TV. no MR. mild TR. PV not visualized. QTc 552 Afib COPD Hypothyroid Dyslipidemia HTN DM Anemia CVA G tube, h/o abscess complication head and neck cancer Plan: Linezolid #4 4/ Tamiflu #5 4/6 DC amikacin and ertapenem #4 4/ SP Vanc #3 monitor temp and CBC monitor resp status droplet and contact isolation f/u bcx TTE without severe valve insufficiency and bacteremia low grade. recommend repeating bcx at end of therapy to ensure resolution of bacteremia. If has recurrent fevers, will recommend ILENE. WENDI RN Thank you for this consult. [facility] Will continue to follow the patient with you. Subjective Allergies: Coded Allergies: No Known Allergies (Unverified , 10/30/19) Subjective Afebrile. FiO2 40% tolerated 30min wean Objective Vital Signs Last 24 Hour Vital Signs Date Time Temp Pulse Resp B/P (MAP) Pulse Ox O2 Delivery O2 Flow Rate FiO2 11/05/19 09:00 89 18 112/65 (81) 94 11/05/19 08:43 98 32 40 40 11/05/19 08:30 40 11/05/19 08:00 98.3 90 26 150/71 (97) 94 11/05/19 08:00 90 11/05/19 07:00 77 30 138/100 (113) 96 11/05/19 06:41 78 19 40 40 11/05/19 06:30 77 28 11/05/19 06:00 76 17 138/67 (90) 95 11/05/19 05:30 79 20 40 11/05/19 05:00 80 27 134/66 (88) 89 11/05/19 04:00 Mechanical Ventilator 11/05/19 04:00 98.6 76 20 123/63 (83) 91 11/05/19 04:00 40 11/05/19 03:12 74 11/05/19 03:11 80 20 40 11/05/19 03:00 72 22 110/75 (87) 93 11/05/19 02:00 74 23 124/62 (82) 93 11/05/19 01:25 81 21 40 11/05/19 01:00 69 23 109/56 (73) 91 11/05/19 00:27 72 11/05/19 00:00 98.5 69 21 131/68 (89) 93 11/05/19 00:00 Mechanical Ventilator 11/04/19 23:08 79 20 40 11/04/19 23:00 67 21 130/97 (108) 91 11/04/19 22:00 73 22 108/55 (72) 91 11/04/19 22:00 108/55 11/04/19 21:15 80 21 40 11/04/19 21:00 62 21 126/58 (80) 95 11/04/19 20:17 65 11/04/19 20:09 82 20 40 11/04/19 20:00 98.6 65 20 137/59 (85) 93 11/04/19 20:00 40 11/04/19 20:00 Mechanical Ventilator 11/04/19 19:00 70 18 119/64 (82) 93 11/04/19 18:00 84 22 142/91 (108) 97 11/04/19 17:29 83 18 40 11/04/19 17:00 85 21 136/64 (88) 94 11/04/19 16:00 Mechanical Ventilator 11/04/19 16:00 85 11/04/19 16:00 40 11/04/19 16:00 98.3 84 19 130/67 (88) 93 11/04/19 15:29 84 23 40 11/04/19 15:00 87 18 115/92 (100) 96 11/04/19 14:00 82 21 120/81 (94) 96 11/04/19 13:00 82 16 125/65 (85) 95 11/04/19 12:00 98.2 83 21 128/66 (86) 90 11/04/19 12:00 40 11/04/19 12:00 81 11/04/19 12:00 Mechanical Ventilator 11/04/19 11:52 88 19 40 11/04/19 11:00 87 23 106/63 (77) 84 11/04/19 10:00 76 17 133/68 (89) Height (Feet): 6 Height (Inches): 1.00 Weight (Pounds): 152 Objective Gen: NAD. intubated. well nourished HEENT: ETT. CV: S1+S2. no rubs or gallop Resp: coarse. regular. equal chest rise. no wheezes Abd: soft. G tube. nondistended. Skin: warm. dry. Neuro: sedated Current Medications Medications (Trade) Dose Ordered Sig/Tasha Route PRN Reason Start Time Stop Time Status Last Admin Dose Admin Acetaminophen (Tylenol) 650 mg Q4H PRN ORAL fever 10/30/19 11:15 11/29/19 11:14 Amiodarone HCl (Cordarone) 100 mg DAILY PEG 11/04/19 09:00 01/29/20 08:59 11/05/19 08:41 Chlorhexidine Gluconate (Megan-Hex 2%) 1 applic DAILY@1999 TOPIC 11/01/19 20:00 01/30/20 19:59 11/04/19 20:37 Heparin Sodium (Porcine) (Heparin 5000 units/ml) 5,000 units EVERY 12 HOURS SUBQ 11/02/19 09:00 12/17/19 08:59 11/04/19 20:40 Levothyroxine Sodium (Synthroid) 50 mcg DAILY@0630 GT 10/31/19 06:30 11/30/19 06:29 11/05/19 06:10 Linezolid 300 ml @ 300 mls/hr Q12HR IVPB 11/02/19 13:30 11/09/19 13:29 11/05/19 08:40 Lorazepam (Ativan 2mg/ml 1ml) 2 mg Q2H PRN IV For Anxiety 10/30/19 11:15 11/06/19 11:14 11/04/19 18:07 Morphine Sulfate (Morphine Sulfate) 4 mg Q4H PRN IVP Severe Pain (Pain Scale 7-10) 10/30/19 11:15 11/06/19 11:14 10/30/19 23:48 Norepinephrine Bitartrate 4 mg/ Dextrose 254 ml @ 0 mls/hr Q24H IV 10/30/19 22:00 11/29/19 21:59 11/01/19 23:54 Ondansetron HCl (Zofran) 4 mg Q6H PRN IVP Nausea & Vomiting 10/30/19 11:15 11/29/19 11:14 Pantoprazole (Protonix) 40 mg DAILY IVP 10/31/19 09:00 11/30/19 08:59 11/05/19 08:41 Polyethylene Glycol (Miralax) 17 gm DAILYPRN PRN ORAL Constipation 10/30/19 11:15 11/29/19 11:14 Quetiapine Fumarate (SEROqueL) 100 mg Q12HR GT 10/30/19 23:00 12/14/19 22:59 11/05/19 08:40 Sodium Chloride 1,000 ml @ 30 mls/hr Q24H IVLG 11/04/19 18:00 12/04/19 17:59 11/04/19 18:08 Yifan Rivera MD Nov 05, 2019 10:13
--- NOTE | 2019-11-05 10:58 | Pulmonolgy Critical Care Note ---
Critical Care - Asmt/Plan Problems: (1) Acute respiratory failure (2) Septic shock (3) Enterococcal bacteremia (4) Nosocomial pneumonia (5) COPD (chronic obstructive pulmonary disease) (6) Atrial fibrillation (7) Severe anemia (8) Suspected 2019-nCoV infection (9) Hypothyroidism (10) Psychosis Respiratory: monitor respiratory rate, adjust FIO2, CXR Cardiac: continue to monitor HR/BP Renal: F/U I&O, keep IV fluid, check electrolytes Gastrointestinal: continue feedings/current rate Endocrine: monitor blood sugar Hematologic: monitor H/H, transfuse if hgb<8.5 Neurologic: PRN Ativan, keep patient comfortable Prophylaxis: Heparin Notes 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 Discussed with: nurses, 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 - Objective Last 24 Hour Vital Signs Date Time Temp Pulse Resp B/P (MAP) Pulse Ox O2 Delivery O2 Flow Rate FiO2 11/05/19 09:00 89 18 112/65 (81) 94 11/05/19 08:43 98 32 40 40 11/05/19 08:30 40 11/05/19 08:00 98.3 90 26 150/71 (97) 94 11/05/19 08:00 90 11/05/19 08:00 Mechanical Ventilator 11/05/19 07:00 77 30 138/100 (113) 96 11/05/19 06:41 78 19 40 40 11/05/19 06:30 77 28 11/05/19 06:00 76 17 138/67 (90) 95 11/05/19 05:30 79 20 40 11/05/19 05:00 80 27 134/66 (88) 89 11/05/19 04:00 Mechanical Ventilator 11/05/19 04:00 98.6 76 20 123/63 (83) 91 11/05/19 04:00 40 11/05/19 03:12 74 11/05/19 03:11 80 20 40 11/05/19 03:00 72 22 110/75 (87) 93 11/05/19 02:00 74 23 124/62 (82) 93 11/05/19 01:25 81 21 40 11/05/19 01:00 69 23 109/56 (73) 91 11/05/19 00:27 72 11/05/19 00:00 98.5 69 21 131/68 (89) 93 4/7/20 00:00 Mechanical Ventilator 11/04/19 23:08 79 20 40 11/04/19 23:00 67 21 130/97 (108) 91 11/04/19 22:00 73 22 108/55 (72) 91 11/04/19 22:00 108/55 11/04/19 21:15 80 21 40 11/04/19 21:00 62 21 126/58 (80) 95 11/04/19 20:17 65 11/04/19 20:09 82 20 40 11/04/19 20:00 98.6 65 20 137/59 (85) 93 11/04/19 20:00 40 11/04/19 20:00 Mechanical Ventilator 11/04/19 19:00 70 18 119/64 (82) 93 11/04/19 18:00 84 22 142/91 (108) 97 11/04/19 17:29 83 18 40 11/04/19 17:00 85 21 136/64 (88) 94 11/04/19 16:00 Mechanical Ventilator 11/04/19 16:00 85 11/04/19 16:00 40 11/04/19 16:00 98.3 84 19 130/67 (88) 93 11/04/19 15:29 84 23 40 11/04/19 15:00 87 18 115/92 (100) 96 11/04/19 14:00 82 21 120/81 (94) 96 11/04/19 13:00 82 16 125/65 (85) 95 11/04/19 12:00 98.2 83 21 128/66 (86) 90 11/04/19 12:00 40 11/04/19 12:00 81 11/04/19 12:00 Mechanical Ventilator 11/04/19 11:52 88 19 40 11/04/19 11:00 87 23 106/63 (77) 84 Status: awake Condition: critical HEENT: normocephalic Neck: full ROM Heart: HR/BP stable Abdomen: soft, non-tender Extremities: no C/C/E Decubiti: location Critical Care - Subjective ROS Limited/Unobtainable: Yes Condition: critical EKG Rhythm: Sinus Rhythm FI02: 40 Vent Support Breath Rate: 16 Vent Support Mode: AC Vent Tidal Volume: 600 Sputum Amount: Moderate PEEP: 0.0 PIP: 40 Tube Feeding Amount: 30 I&O: Intake and Output 11/04/19 11/05/19 19:00 07:00 Intake Total 1640 ml 1080 ml Output Total 670 ml 1950 ml Balance 970 ml -870 ml IV Total 1230 ml 720 ml Tube Feeding 360 ml 300 ml Other 50 ml 60 ml Output Urine Total 670 ml 1950 ml # Bowel Movements 3 1 CXR: no change, ET in good position ET-Tube: 7.5 ET Position: 23 Jackie Kaiser MD Nov 05, 2019 10:58
[2019-11-05] MEDS: LORazepam Inj 2mg/ml 1ml IV PRN ×2 (13:21→21:10)
--- NOTE | 2019-11-05 13:22 | NUR ---
NURSE NOTES: pt very restless, hr elevated, sliding down in bed, pulling at tubes and hanging legs out side of bed. alert, no c/o pain. very anxious. ativan 2mg 1ml, ivp given per md order.
--- NOTE | 2019-11-05 15:30 | NUR ---
NURSE NOTES: NURSE NOTES: MD Slade here to see pt. IV NS at 30ml/hr. SB LOW 50'S, bp stable , no pressors. afebrile. pt sating 92-95%. NO NEW ORDERS AT THIS TIME.
--- NOTE | 2019-11-05 15:37 | Cardiology Progress Note ---
Assessment/Plan Assessment/Plan 1. Paroxysmal episodes of atrial fibrillation. 2. Respiratory failure. 3. Influenza A positive. covid neg 4. Malignant neoplasm of the larynx. 5. History of hypertension. 6. History of hyperlipidemia. 7. History of hypothyroidism. 8. Respiratory failure on a mechanical ventilator. 9. Diabetes mellitus type 2. 10. Coagulopathy. 11. Abnormal liver function tests. 12. Hypotension likely from sepsis and shock influenza positive off pressor still anemic lft contienu to improve wbc nl covid 19 neg final echo noted cxr reviewed worsening dense infiltrate on 11/03 tele reviewed is tolerating feeds lwo dose ivf s/p one dose of diuretic yes will not diurese further until weaning starts wean when feasible Subjective ROS Limited/Unobtainable: Yes Objective Last 24 Hour Vital Signs Date Time Temp Pulse Resp B/P (MAP) Pulse Ox O2 Delivery O2 Flow Rate FiO2 11/05/19 14:00 66 16 109/57 (74) 92 11/05/19 13:12 99 17 40 40 11/05/19 13:00 85 17 132/73 (92) 99 11/05/19 12:00 40 11/05/19 12:00 83 11/05/19 12:00 98.6 86 22 133/76 (95) 99 11/05/19 12:00 Mechanical Ventilator 11/05/19 11:00 81 16 131/58 (82) 98 11/05/19 10:00 84 17 115/67 (83) 98 11/05/19 09:00 89 18 112/65 (81) 94 11/05/19 08:43 98 32 40 40 11/05/19 08:30 40 11/05/19 08:00 98.3 90 26 150/71 (97) 94 11/05/19 08:00 90 11/05/19 08:00 Mechanical Ventilator 11/05/19 07:00 77 30 138/100 (113) 96 11/05/19 06:41 78 19 40 40 11/05/19 06:30 77 28 11/05/19 06:00 76 17 138/67 (90) 95 11/05/19 05:30 79 20 40 11/05/19 05:00 80 27 134/66 (88) 89 11/05/19 04:00 Mechanical Ventilator 11/05/19 04:00 98.6 76 20 123/63 (83) 91 4/7/20 04:00 40 11/05/19 03:12 74 11/05/19 03:11 80 20 40 11/05/19 03:00 72 22 110/75 (87) 93 11/05/19 02:00 74 23 124/62 (82) 93 11/05/19 01:25 81 21 40 11/05/19 01:00 69 23 109/56 (73) 91 11/05/19 00:27 72 11/05/19 00:00 98.5 69 21 131/68 (89) 93 11/05/19 00:00 Mechanical Ventilator 11/04/19 23:08 79 20 40 11/04/19 23:00 67 21 130/97 (108) 91 11/04/19 22:00 73 22 108/55 (72) 91 11/04/19 22:00 108/55 11/04/19 21:15 80 21 40 11/04/19 21:00 62 21 126/58 (80) 95 11/04/19 20:17 65 11/04/19 20:09 82 20 40 11/04/19 20:00 98.6 65 20 137/59 (85) 93 11/04/19 20:00 40 11/04/19 20:00 Mechanical Ventilator 11/04/19 19:00 70 18 119/64 (82) 93 11/04/19 18:00 84 22 142/91 (108) 97 11/04/19 17:29 83 18 40 11/04/19 17:00 85 21 136/64 (88) 94 11/04/19 16:00 Mechanical Ventilator 11/04/19 16:00 85 11/04/19 16:00 40 11/04/19 16:00 98.3 84 19 130/67 (88) 93 General Appearance: no apparent distress, on vent, patient on isolation Neck: supple Cardiovascular: normal rate Respiratory/Chest: lungs clear Abdomen: normal bowel sounds, non tender, soft Extremities: no swelling Intake and Output 11/04/19 11/05/19 19:00 07:00 Intake Total 1640 ml 1080 ml Output Total 670 ml 1950 ml Balance 970 ml -870 ml IV Total 1230 ml 720 ml Tube Feeding 360 ml 300 ml Other 50 ml 60 ml Output Urine Total 670 ml 1950 ml # Bowel Movements 3 1 Carlos Slade MD Nov 05, 2019 15:37
--- NOTE | 2019-11-05 16:20 | Internal Med Progress Note ---
Subjective Date of Service: Nov 05, 2019 Physician Name Gallito Turcios Attending Physician Danny Stark MD Current Medications Medications (Trade) Dose Ordered Sig/Tasha Route PRN Reason Start Time Stop Time Status Last Admin Dose Admin Acetaminophen (Tylenol) 650 mg Q4H PRN ORAL fever 10/30/19 11:15 11/29/19 11:14 Amiodarone HCl (Cordarone) 100 mg DAILY PEG 11/04/19 09:00 01/29/20 08:59 11/05/19 08:41 Chlorhexidine Gluconate (Megan-Hex 2%) 1 applic DAILY@1999 TOPIC 11/01/19 20:00 01/30/20 19:59 11/04/19 20:37 Heparin Sodium (Porcine) (Heparin 5000 units/ml) 5,000 units EVERY 12 HOURS SUBQ 11/02/19 09:00 12/17/19 08:59 11/04/19 20:40 Levothyroxine Sodium (Synthroid) 50 mcg DAILY@0630 GT 10/31/19 06:30 11/30/19 06:29 11/05/19 06:10 Linezolid 300 ml @ 300 mls/hr Q12HR IVPB 11/02/19 13:30 11/09/19 13:29 11/05/19 08:40 Lorazepam (Ativan 2mg/ml 1ml) 2 mg Q2H PRN IV For Anxiety 10/30/19 11:15 11/06/19 11:14 11/05/19 13:21 Morphine Sulfate (Morphine Sulfate) 4 mg Q4H PRN IVP Severe Pain (Pain Scale 7-10) 10/30/19 11:15 11/06/19 11:14 10/30/19 23:48 Norepinephrine Bitartrate 4 mg/ Dextrose 254 ml @ 0 mls/hr Q24H IV 10/30/19 22:00 11/29/19 21:59 11/01/19 23:54 Ondansetron HCl (Zofran) 4 mg Q6H PRN IVP Nausea & Vomiting 10/30/19 11:15 11/29/19 11:14 Pantoprazole (Protonix) 40 mg DAILY IVP 10/31/19 09:00 11/30/19 08:59 11/05/19 08:41 Polyethylene Glycol (Miralax) 17 gm DAILYPRN PRN ORAL Constipation 10/30/19 11:15 11/29/19 11:14 Quetiapine Fumarate (SEROqueL) 100 mg Q12HR GT 10/30/19 23:00 12/14/19 22:59 11/05/19 08:40 Sodium Chloride 1,000 ml @ 30 mls/hr Q24H IVLG 11/04/19 18:00 12/04/19 17:59 11/04/19 18:08 Allergies: Coded Allergies: No Known Allergies (Unverified , 10/30/19) ROS Limited/Unobtainable: Yes Subjective 73 YO M with history of esophageal cancer admitted with respiratory failure. Cover for Int Med-Dr Stark. ICU. Intubted and sedated Objective Last Vital Signs Date Time Temp Pulse Resp B/P (MAP) Pulse Ox O2 Delivery O2 Flow Rate FiO2 11/05/19 14:00 66 16 109/57 (74) 92 11/05/19 13:12 40 40 11/05/19 12:00 98.6 11/05/19 12:00 Mechanical Ventilator 10/30/19 22:00 15.0 Intake and Output 11/04/19 11/05/19 19:00 07:00 Intake Total 1640 ml 1080 ml Output Total 670 ml 1950 ml Balance 970 ml -870 ml IV Total 1230 ml 720 ml Tube Feeding 360 ml 300 ml Other 50 ml 60 ml Output Urine Total 670 ml 1950 ml # Bowel Movements 3 1 Objective PHYSICAL EXAMINATION: VITAL SIGNS: Temperature 98.1, respirations 25, pulse 92, blood pressure 95/59. GENERAL: The patient is well-developed, well-nourished male, who is intubated and sedated. HEENT: Eyes, pupils are equal and responsive to light and accommodation. Extraocular movements are intact. NECK: Supple without lymphadenopathy. CHEST: Mech vent; Coarse mechanical breath sounds bilaterally without wheezes or rales. CARDIOVASCULAR: Regular rhythm and rate. S1, S2 are normal without murmurs, rubs, or gallops. ABDOMEN: Soft, nontender, and nondistended. Positive bowel sounds. No evidence of hepatosplenomegaly. Currently, no rebound or guarding noted. EXTREMITIES: Negative for clubbing, cyanosis, or edema. RECTAL/GENITAL: Not performed. NEUROLOGICAL: Unable to assess. Assessment/Plan Assessment/Plan ASSESSMENT: This is a 73-year-old male. 1. Respiratory failure. 2. Pneumonia. 3. Esophageal cancer. 4. Diabetes type 2. 5. Hypertension. 6. Hypercholesterolemia. 7. Atrial fibrillation. 8. Hypothyroidism. 9. Dysphagia. 10. History of prostate cancer. TREATMENT: 1. Pneumonia/respiratory failure. A Pulmonary consultation has been obtained with Dr. Jackie Kaiser. ABX = linezolid. An Infectious Disease consultation has been obtained with Dr. Yifan Rivera. We will follow recommendations of Infectious Disease and Pulmonary. COVID 19=neg 2. Esophageal cancer. 3. Diabetes type 2. A NovoLog sliding scale has been instituted. 4. Hypertension. The patient is currently hypotensive and probable sepsis. 5. Hypercholesterolemia. Continue atorvastatin as above. 6. Atrial fibrillation. Continue amiodarone as above. 7. Hypothyroidism. Continue levothyroxine as above. 8. Dysphagia, status post PEG placement. 9. History of prostate cancer. Gallito Turcios MD Nov 05, 2019 16:20
--- NOTE | 2019-11-05 19:20 | NUR ---
NURSE NOTES: Received patient from VENKAT Geiger. Will continue plan of care.
[2019-11-05] MEDS: Dyna-Hex 2% Top Sol 2oz TOPIC SCH (20:25)
--- NOTE | 2019-11-05 22:00 | NUR ---
NURSE NOTES: Suctioning provided, lots of thick white frothy secretions. Patient is awake and became agitated, kept biting ETT. Ativan PRN was given for agitation. Turned and reposition.
[2019-11-06] VITALS (23 sets, daily range): BP systolic 103–160; BP diastolic 57–109
--- NOTE | 2019-11-06 | NUR ---
NURSE NOTES: Patient is now calm and asleep. BP:124/60, HR:58. Will continue to monitor.
--- NOTE | 2019-11-06 02:00 | NUR ---
NURSE NOTES: RT at bedside providing suctioning. Patient is asleep. No changes in condition.
--- NOTE | 2019-11-06 04:00 | NUR ---
NURSE NOTES: Bed bath given with deon-hex, linens changes, oral care, suctioning, turn and repositioned. Patient is awake and alert and eyes track. Left femoral TLC is not drawing blood, 2/3 lumens flushed well. Blood drawn peripherally and sent to lab. BP:115/58, HR:68, O2:99%. Will continue to monitor.
[2019-11-06 05:34] LABS: BASOPHILS % (AUTO) 1.6 % (0.0-2.0); EOSINOPHILS % (AUTO) 2.8 % (0.0-3.0); HEMATOCRIT 28.9 % (42.0-52.0); HEMOGLOBIN 9.4 G/DL (14.2-18.0); LYMPHOCYTES % (AUTO) 22.8 % (20.0-45.0); MEAN CORPUSCULAR VOLUME 85 FL (80-99); MONOCYTES % (AUTO) 13.4 % (1.0-10.0); NEUTROPHILS % (AUTO) 59.4 % (45.0-75.0); PLATELET COUNT 337 K/UL (150-450); RED BLOOD COUNT 3.41 M/UL (4.70-6.10); RED CELL DISTRIBUTION WIDTH 15.7 % (11.6-14.8); WHITE BLOOD COUNT 7.1 K/UL (4.8-10.8)
[2019-11-06 05:43] LABS: ANION GAP 8 mmol/L (5-15); BLOOD UREA NITROGEN 9 mg/dL (7-18); CALCIUM 8.1 MG/DL (8.5-10.1); CARBON DIOXIDE 25 MMOL/L (21-32); CHLORIDE 110 MMOL/L (98-107); CREATININE 0.8 MG/DL (0.55-1.30); POTASSIUM 3.5 MMOL/L (3.5-5.1); SODIUM 143 MMOL/L (136-145)
--- NOTE | 2019-11-06 06:00 | NUR ---
NURSE NOTES: No change in patient condition. Vital signs stable.
[2019-11-06] MEDS: LORazepam Inj 2mg/ml 1ml IV PRN ×2 (07:00→22:50)
--- NOTE | 2019-11-06 07:15 | NUR ---
HAND-OFF: Report given to VENKAT Chávez.
--- NOTE | 2019-11-06 07:16 | NUR ---
NURSE NOTES: Late entry: PT and report received from VENKAT Onofre; received AAOx2 sa[place]ian speaking, no S/S of respiratory distress; intubated with ETT 7.5 @ 23cm L-lip, AC 16, TV 600, 40%, 0 peep; manager summer shows SR HR 62; feeding via GT Jevity @ 30cc/hr @ goal; logan intact draining at lowest position; R-fem TLC intact flushes well infusing NS @ 30cc/hr; received on BUE soft wrist restraints no S/S of injury noted; will continue with plan of care for PT.
--- NOTE | 2019-11-06 08:15 | NUR ---
RD ASSESSMENT & RECOMMENDATIONS SEE CARE ACTIVITY FOR COMPLETE ASSESSMENT DAILY ESTIMATED NEEDS: Needs based on CRITICAL CARE/ 66kg 22-28 kcals/kg 2891-4318 total kcals 1.2-2 g protein/kg 79-132 g total protein 25-30 mL/kg 9970-5544 total fluid mLs NUTRITION DIAGNOSIS: Swallowing difficulty R/T dysphagia as evidenced by PEG dep, s/p oral intubation, pressor support now held. 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 * HOB over 30 degrees/ water flush per MD * Hold 1 hr before and after Synthroid med. ADDITIONAL RECOMMENDATIONS: * Per SNF: HT=66" GX=844# (as of 10/18) -> rec calibrated bedscale wt * Consider bedside BG testing: h/o DM -> Monitor need for NISS * Check lytes daily, replete as needed .
--- NOTE | 2019-11-06 08:54 | Infectious Diseases Prog Note ---
Assessment/Plan Assessment/Plan A: Afebrile Leukocytosis, neutrophil predominant, SP Septic shock, sp off of pressors PNA Influenza A Probable superimposed bacterial PNA SARS CoV PCR negative CXR: Bilateral mostly nodular mostly interstitial disease, as described. This could represent interstitial pneumonia or edema, among many other possibilities. However, given the nodular appearance and the presence of an infusion catheter the possibility of nodular metastatic disease should also be considered. Unlikely UTI UA 10-15 WBC UCX: NG VRE bacteremia BCx: VRE 10/29 TTE: focal AV sclerosis with adequate cusp excursion. thickened MV leaflets with normal excursion. mild mitral annulus and aortic root calcification. normal TV. no MR. mild TR. PV not visualized. QTc 552 Afib COPD Hypothyroid Dyslipidemia HTN DM Anemia CVA G tube, h/o abscess complication head and neck cancer Plan: Linezolid #5/14 4/ Tamiflu #5 / DC amikacin and ertapenem #4 / SP Vanc #3 monitor temp and CBC monitor resp status isolation precaution per hospital protocol f/u bcx TTE without severe valve insufficiency and bacteremia low grade. recommend repeating bcx at end of therapy to ensure resolution of bacteremia. If has recurrent fevers, will recommend ILENE. WENDI RN Thank you for this consult. [facility] Will continue to follow the patient with you. Subjective Allergies: Coded Allergies: No Known Allergies (Unverified , 10/30/19) Subjective Afebrile. FiO2 40% No leukocytosis awake but weak no diarrhea. no pressors. minimal secretion Objective Vital Signs Last 24 Hour Vital Signs Date Time Temp Pulse Resp B/P (MAP) Pulse Ox O2 Delivery O2 Flow Rate FiO2 11/06/19 08:00 40 11/06/19 08:00 Mechanical Ventilator 11/06/19 08:00 57 16 131/65 (87) 95 11/06/19 07:00 77 27 138/71 (93) 99 11/06/19 06:30 73 16 11/06/19 06:00 70 16 134/67 (89) 93 11/06/19 05:09 79 21 40 40 11/06/19 05:00 71 18 130/68 (88) 94 11/06/19 04:00 Mechanical Ventilator 11/06/19 04:00 40 11/06/19 04:00 97.6 72 16 115/58 (77) 96 11/06/19 03:20 73 11/06/19 03:00 75 21 126/71 (89) 93 11/06/19 02:38 74 18 40 40 11/06/19 02:00 57 16 125/60 (81) 96 11/06/19 01:11 65 16 40 40 11/06/19 01:00 64 16 112/57 (75) 96 11/06/19 00:00 Mechanical Ventilator 11/06/19 00:00 98.1 58 16 124/60 (81) 98 11/05/19 23:30 58 11/05/19 23:00 58 16 131/67 (88) 97 11/05/19 22:57 88 26 40 40 11/05/19 22:00 131/67 11/05/19 22:00 67 16 119/66 (83) 94 11/05/19 21:00 87 21 144/67 (92) 98 11/05/19 20:41 94 20 40 40 11/05/19 20:00 Mechanical Ventilator 11/05/19 20:00 40 11/05/19 20:00 98.7 83 24 126/103 (111) 97 11/05/19 19:36 75 11/05/19 19:24 99 22 40 40 11/05/19 19:00 73 17 125/66 (85) 97 11/05/19 18:00 16 149/78 (101) 95 11/05/19 17:10 98 17 40 40 11/05/19 17:00 82 17 119/68 (85) 90 11/05/19 16:00 Mechanical Ventilator 11/05/19 16:00 64 11/05/19 16:00 40 11/05/19 16:00 98.6 76 21 107/58 (74) 95 11/05/19 14:00 66 16 109/57 (74) 92 11/05/19 13:12 99 17 40 40 11/05/19 13:00 85 17 132/73 (92) 99 11/05/19 12:00 40 11/05/19 12:00 83 11/05/19 12:00 98.6 86 22 133/76 (95) 99 11/05/19 12:00 Mechanical Ventilator 11/05/19 11:00 81 16 131/58 (82) 98 11/05/19 10:00 84 17 115/67 (83) 98 11/05/19 09:00 89 18 112/65 (81) 94 Height (Feet): 6 Height (Inches): 1.00 Weight (Pounds): 152 Objective Gen: NAD. intubated. well nourished HEENT: ETT. CV: S1+S2. no rubs or gallop Resp: coarse. regular. equal chest rise. no wheezes Abd: soft. G tube. nondistended. Skin: warm. dry. Neuro: sedated Laboratory Tests Test 11/06/19 04:00 White Blood Count 7.1 K/UL (4.8-10.8) Red Blood Count 3.41 M/UL (4.70-6.10) L Hemoglobin 9.4 G/DL (14.2-18.0) L Hematocrit 28.9 % (42.0-52.0) L Mean Corpuscular Volume 85 FL (80-99) Mean Corpuscular Hemoglobin 27.5 PG (27.0-31.0) Mean Corpuscular Hemoglobin Concent 32.6 G/DL (32.0-36.0) Red Cell Distribution Width 15.7 % (11.6-14.8) H Platelet Count 337 K/UL (150-450) Mean Platelet Volume 4.6 FL (6.5-10.1) L Neutrophils (%) (Auto) 59.4 % (45.0-75.0) Lymphocytes (%) (Auto) 22.8 % (20.0-45.0) Monocytes (%) (Auto) 13.4 % (1.0-10.0) H Eosinophils (%) (Auto) 2.8 % (0.0-3.0) Basophils (%) (Auto) 1.6 % (0.0-2.0) Sodium Level 143 MMOL/L (136-145) Potassium Level 3.5 MMOL/L (3.5-5.1) Chloride Level 110 MMOL/L (98-107) H Carbon Dioxide Level 25 MMOL/L (21-32) Anion Gap 8 mmol/L (5-15) Blood Urea Nitrogen 9 mg/dL (7-18) Creatinine 0.8 MG/DL (0.55-1.30) Estimat Glomerular Filtration Rate > 60 mL/min (>60) Glucose Level 94 MG/DL (74-106) Calcium Level 8.1 MG/DL (8.5-10.1) L Current Medications Medications (Trade) Dose Ordered Sig/Tasha Route PRN Reason Start Time Stop Time Status Last Admin Dose Admin Acetaminophen (Tylenol) 650 mg Q4H PRN ORAL fever 10/30/19 11:15 11/29/19 11:14 Amiodarone HCl (Cordarone) 100 mg DAILY PEG 11/04/19 09:00 01/29/20 08:59 11/05/19 08:41 Chlorhexidine Gluconate (Megan-Hex 2%) 1 applic DAILY@2000 TOPIC 11/01/19 20:00 01/30/20 19:59 11/05/19 20:25 Heparin Sodium (Porcine) (Heparin 5000 units/ml) 5,000 units EVERY 12 HOURS SUBQ 11/02/19 09:00 12/17/19 08:59 11/05/19 20:25 Levothyroxine Sodium (Synthroid) 50 mcg DAILY@0630 GT 10/31/19 06:30 11/30/19 06:29 11/06/19 06:30 Linezolid 300 ml @ 300 mls/hr Q12HR IVPB 11/02/19 13:30 11/09/19 13:29 11/05/19 20:25 Lorazepam (Ativan 2mg/ml 1ml) 2 mg Q2H PRN IV For Anxiety 10/30/19 11:15 11/06/19 11:14 11/06/19 07:00 Morphine Sulfate (Morphine Sulfate) 4 mg Q4H PRN IVP Severe Pain (Pain Scale 7-10) 10/30/19 11:15 11/06/19 11:14 10/30/19 23:48 Norepinephrine Bitartrate 4 mg/ Dextrose 254 ml @ 0 mls/hr Q24H IV 10/30/19 22:00 11/29/19 21:59 11/01/19 23:54 Ondansetron HCl (Zofran) 4 mg Q6H PRN IVP Nausea & Vomiting 10/30/19 11:15 11/29/19 11:14 Pantoprazole (Protonix) 40 mg DAILY IVP 10/31/19 09:00 11/30/19 08:59 11/05/19 08:41 Polyethylene Glycol (Miralax) 17 gm DAILYPRN PRN ORAL Constipation 10/30/19 11:15 11/29/19 11:14 Quetiapine Fumarate (SEROqueL) 100 mg Q12HR GT 10/30/19 23:00 12/14/19 22:59 11/05/19 20:25 Sodium Chloride 1,000 ml @ 30 mls/hr Q24H IVLG 11/04/19 18:00 12/04/19 17:59 11/05/19 18:16 Yifan Rivera MD Nov 06, 2019 08:54
--- NOTE | 2019-11-06 09:00 | NUR ---
NURSE NOTES: VSS, no S/S of respiratory distress remains intubated, will continue to monitor.
[2019-11-06] MEDS: Heparin 5000 units/ml inj SUBQ SCH ×2 (09:15→20:26)
[2019-11-06] MEDS: Amiodarone 200mg tab PEG SCH (09:15)
[2019-11-06] MEDS: Pantoprazole Inj IVP SCH (09:16)
--- NOTE | 2019-11-06 10:10 | Pulmonolgy Critical Care Note ---
Critical Care - Asmt/Plan Problems: (1) Acute respiratory failure (2) Septic shock (3) Enterococcal bacteremia (4) Nosocomial pneumonia (5) COPD (chronic obstructive pulmonary disease) (6) Atrial fibrillation (7) Severe anemia (8) Suspected 2019-nCoV infection (9) Hypothyroidism (10) Psychosis Respiratory: monitor respiratory rate, adjust FIO2 Cardiac: continue to monitor HR/BP Renal: F/U I&O, keep IV fluid Infectious Disease: check cultures, continue antibiotics Gastrointestinal: continue feedings/current rate Endocrine: monitor blood sugar Hematologic: monitor H/H, transfuse if hgb<8.5 Neurologic: PRN Ativan, PRN Morphine, keep patient comfortable Affect: PRN ativan Prophylaxis: Protonix Time Spent (Minutes): 40 Discussed with: nurses, consultants, spring encasermanager strategic - Objective Last 24 Hour Vital Signs Date Time Temp Pulse Resp B/P (MAP) Pulse Ox O2 Delivery O2 Flow Rate FiO2 11/06/19 08:00 40 11/06/19 08:00 Mechanical Ventilator 11/06/19 08:00 57 16 131/65 (87) 95 11/06/19 07:12 81 20 40 40 11/06/19 07:00 77 27 138/71 (93) 99 11/06/19 06:30 73 16 11/06/19 06:00 70 16 134/67 (89) 93 11/06/19 05:09 79 21 40 40 11/06/19 05:00 71 18 130/68 (88) 94 11/06/19 04:00 Mechanical Ventilator 11/06/19 04:00 40 11/06/19 04:00 97.6 72 16 115/58 (77) 96 11/06/19 03:20 73 11/06/19 03:00 75 21 126/71 (89) 93 11/06/19 02:38 74 18 40 40 11/06/19 02:00 57 16 125/60 (81) 96 11/06/19 01:11 65 16 40 40 11/06/19 01:00 64 16 112/57 (75) 96 11/06/19 00:00 Mechanical Ventilator 11/06/19 00:00 98.1 58 16 124/60 (81) 98 11/05/19 23:30 58 11/05/19 23:00 58 16 131/67 (88) 97 11/05/19 22:57 88 26 40 40 11/05/19 22:00 131/67 11/05/19 22:00 67 16 119/66 (83) 94 11/05/19 21:00 87 21 144/67 (92) 98 11/05/19 20:41 94 20 40 40 11/05/19 20:00 Mechanical Ventilator 11/05/19 20:00 40 11/05/19 20:00 98.7 83 24 126/103 (111) 97 11/05/19 19:36 75 11/05/19 19:24 99 22 40 40 11/05/19 19:00 73 17 125/66 (85) 97 11/05/19 18:00 16 149/78 (101) 95 11/05/19 17:10 98 17 40 40 11/05/19 17:00 82 17 119/68 (85) 90 11/05/19 16:00 Mechanical Ventilator 11/05/19 16:00 64 11/05/19 16:00 40 11/05/19 16:00 98.6 76 21 107/58 (74) 95 11/05/19 14:00 66 16 109/57 (74) 92 11/05/19 13:12 99 17 40 40 11/05/19 13:00 85 17 132/73 (92) 99 11/05/19 12:00 40 11/05/19 12:00 83 11/05/19 12:00 98.6 86 22 133/76 (95) 99 11/05/19 12:00 Mechanical Ventilator 11/05/19 11:00 81 16 131/58 (82) 98 Status: sedated Condition: critical Lungs: rales, rhonchi Heart: HR/BP stable Abdomen: soft, non-tender Extremities: no C/C/E Critical Care - Subjective Interval Events: orally intubated Condition: critical EKG Rhythm: Sinus Rhythm FI02: 40 Vent Support Breath Rate: 16 Vent Support Mode: AC Vent Tidal Volume: 600 Sputum Amount: Small PEEP: 0.0 PIP: 30 Tube Feeding Amount: 30 I&O: Intake and Output 11/05/19 11/06/19 19:00 07:00 Intake Total 940 ml 990 ml Output Total 940 ml 1120 ml Balance 0 ml -130 ml IV Total 540 ml 630 ml Tube Feeding 360 ml 300 ml Other 40 ml 60 ml Output Urine Total 940 ml 1120 ml # Bowel Movements 2 CXR: worsening, ET tube in place ET-Tube: 7.5 ET Position: 23 Labs: Laboratory Tests Test 11/06/19 04:00 White Blood Count 7.1 K/UL (4.8-10.8) Red Blood Count 3.41 M/UL (4.70-6.10) L Hemoglobin 9.4 G/DL (14.2-18.0) L Hematocrit 28.9 % (42.0-52.0) L Mean Corpuscular Volume 85 FL (80-99) Mean Corpuscular Hemoglobin 27.5 PG (27.0-31.0) Mean Corpuscular Hemoglobin Concent 32.6 G/DL (32.0-36.0) Red Cell Distribution Width 15.7 % (11.6-14.8) H Platelet Count 337 K/UL (150-450) Mean Platelet Volume 4.6 FL (6.5-10.1) L Neutrophils (%) (Auto) 59.4 % (45.0-75.0) Lymphocytes (%) (Auto) 22.8 % (20.0-45.0) Monocytes (%) (Auto) 13.4 % (1.0-10.0) H Eosinophils (%) (Auto) 2.8 % (0.0-3.0) Basophils (%) (Auto) 1.6 % (0.0-2.0) Sodium Level 143 MMOL/L (136-145) Potassium Level 3.5 MMOL/L (3.5-5.1) Chloride Level 110 MMOL/L (98-107) H Carbon Dioxide Level 25 MMOL/L (21-32) Anion Gap 8 mmol/L (5-15) Blood Urea Nitrogen 9 mg/dL (7-18) Creatinine 0.8 MG/DL (0.55-1.30) Estimat Glomerular Filtration Rate > 60 mL/min (>60) Glucose Level 94 MG/DL (74-106) Calcium Level 8.1 MG/DL (8.5-10.1) Jackie Carvalho MD Nov 06, 2019 10:10
--- NOTE | 2019-11-06 13:19 | Internal Med Progress Note ---
Subjective Date of Service: Nov 06, 2019 Physician Name Gallito Turcios Attending Physician Danny Stark MD Current Medications Medications (Trade) Dose Ordered Sig/Tasha Route PRN Reason Start Time Stop Time Status Last Admin Dose Admin Acetaminophen (Tylenol) 650 mg Q4H PRN ORAL fever 10/30/19 11:15 11/29/19 11:14 Amiodarone HCl (Cordarone) 100 mg DAILY PEG 11/04/19 09:00 01/29/20 08:59 11/06/19 09:15 Chlorhexidine Gluconate (Megan-Hex 2%) 1 applic DAILY@1999 TOPIC 11/01/19 20:00 01/30/20 19:59 11/05/19 20:25 Heparin Sodium (Porcine) (Heparin 5000 units/ml) 5,000 units EVERY 12 HOURS SUBQ 11/02/19 09:00 12/17/19 08:59 11/06/19 09:15 Levothyroxine Sodium (Synthroid) 50 mcg DAILY@0630 GT 10/31/19 06:30 11/30/19 06:29 11/06/19 06:30 Linezolid 300 ml @ 300 mls/hr Q12HR IVPB 11/02/19 13:30 11/15/19 23:59 11/06/19 09:16 Norepinephrine Bitartrate 4 mg/ Dextrose 254 ml @ 0 mls/hr Q24H IV 10/30/19 22:00 11/29/19 21:59 11/01/19 23:54 Ondansetron HCl (Zofran) 4 mg Q6H PRN IVP Nausea & Vomiting 10/30/19 11:15 11/29/19 11:14 Pantoprazole (Protonix) 40 mg DAILY IVP 10/31/19 09:00 11/30/19 08:59 11/06/19 09:16 Polyethylene Glycol (Miralax) 17 gm DAILYPRN PRN ORAL Constipation 10/30/19 11:15 11/29/19 11:14 Quetiapine Fumarate (SEROqueL) 100 mg Q12HR GT 10/30/19 23:00 12/14/19 22:59 11/06/19 09:16 Allergies: Coded Allergies: No Known Allergies (Unverified , 10/30/19) ROS Limited/Unobtainable: Yes Subjective 73 YO M with history of esophageal cancer admitted with respiratory failure. Cover for Int Elijah-Dr Stark. ICU. Intubted and sedated Objective Last Vital Signs Date Time Temp Pulse Resp B/P (MAP) Pulse Ox O2 Delivery O2 Flow Rate FiO2 11/06/19 13:00 67 16 149/76 (100) 96 11/06/19 12:00 Mechanical Ventilator 11/06/19 12:00 98.3 11/06/19 12:00 40 10/30/19 22:00 15.0 Laboratory Tests Test 11/06/19 04:00 White Blood Count 7.1 K/UL (4.8-10.8) Red Blood Count 3.41 M/UL (4.70-6.10) L Hemoglobin 9.4 G/DL (14.2-18.0) L Hematocrit 28.9 % (42.0-52.0) L Mean Corpuscular Volume 85 FL (80-99) Mean Corpuscular Hemoglobin 27.5 PG (27.0-31.0) Mean Corpuscular Hemoglobin Concent 32.6 G/DL (32.0-36.0) Red Cell Distribution Width 15.7 % (11.6-14.8) H Platelet Count 337 K/UL (150-450) Mean Platelet Volume 4.6 FL (6.5-10.1) L Neutrophils (%) (Auto) 59.4 % (45.0-75.0) Lymphocytes (%) (Auto) 22.8 % (20.0-45.0) Monocytes (%) (Auto) 13.4 % (1.0-10.0) H Eosinophils (%) (Auto) 2.8 % (0.0-3.0) Basophils (%) (Auto) 1.6 % (0.0-2.0) Sodium Level 143 MMOL/L (136-145) Potassium Level 3.5 MMOL/L (3.5-5.1) Chloride Level 110 MMOL/L (98-107) H Carbon Dioxide Level 25 MMOL/L (21-32) Anion Gap 8 mmol/L (5-15) Blood Urea Nitrogen 9 mg/dL (7-18) Creatinine 0.8 MG/DL (0.55-1.30) Estimat Glomerular Filtration Rate > 60 mL/min (>60) Glucose Level 94 MG/DL (74-106) Calcium Level 8.1 MG/DL (8.5-10.1) L Intake and Output 11/05/19 11/06/19 19:00 07:00 Intake Total 940 ml 1020 ml Output Total 940 ml 1120 ml Balance 0 ml -100 ml IV Total 540 ml 660 ml Tube Feeding 360 ml 300 ml Other 40 ml 60 ml Output Urine Total 940 ml 1120 ml # Bowel Movements 2 Objective PHYSICAL EXAMINATION: VITAL SIGNS: Temperature 98.1, respirations 25, pulse 92, blood pressure 95/59. GENERAL: The patient is well-developed, well-nourished male, who is intubated and sedated. HEENT: Eyes, pupils are equal and responsive to light and accommodation. Extraocular movements are intact. NECK: Supple without lymphadenopathy. CHEST: Mech vent; Coarse mechanical breath sounds bilaterally without wheezes or rales. CARDIOVASCULAR: Regular rhythm and rate. S1, S2 are normal without murmurs, rubs, or gallops. ABDOMEN: Soft, nontender, and nondistended. Positive bowel sounds. No evidence of hepatosplenomegaly. Currently, no rebound or guarding noted. EXTREMITIES: Negative for clubbing, cyanosis, or edema. RECTAL/GENITAL: Not performed. NEUROLOGICAL: Unable to assess. Assessment/Plan Assessment/Plan ASSESSMENT: This is a 73-year-old male. 1. Respiratory failure. 2. Pneumonia. 3. Esophageal cancer. 4. Diabetes type 2. 5. Hypertension. 6. Hypercholesterolemia. 7. Atrial fibrillation. 8. Hypothyroidism. 9. Dysphagia. 10. History of prostate cancer. TREATMENT: 1. Pneumonia/respiratory failure. A Pulmonary consultation has been obtained with Dr. Jackie Kaiser. ABX = linezolid. An Infectious Disease consultation has been obtained with Dr. Yifan Rivera. We will follow recommendations of Infectious Disease and Pulmonary. COVID 19=neg 2. Esophageal cancer. 3. Diabetes type 2. A NovoLog sliding scale has been instituted. 4. Hypertension. The patient is currently hypotensive and probable sepsis. 5. Hypercholesterolemia. Continue atorvastatin as above. 6. Atrial fibrillation. Continue amiodarone as above. 7. Hypothyroidism. Continue levothyroxine as above. 8. Dysphagia, status post PEG placement. 9. History of prostate cancer. Gallito Turcios MD Nov 06, 2019 13:19
--- NOTE | 2019-11-06 16:24 | Cardiology Progress Note ---
Assessment/Plan Assessment/Plan 1. Paroxysmal episodes of atrial fibrillation. 2. Respiratory failure. 3. Influenza A positive. covid neg 4. Malignant neoplasm of the larynx. 5. History of hypertension. 6. History of hyperlipidemia. 7. History of hypothyroidism. 8. Respiratory failure on a mechanical ventilator. 9. Diabetes mellitus type 2. 10. Coagulopathy. 11. Abnormal liver function tests. 12. Hypotension likely from sepsis and shock 13. VRE bacteremia influenza positive off pressor anemic but stable wbc nl covid 19 neg final echo noted cxr reviewed worsening dense infiltrate on 11/03 tele reviewed is tolerating feeds off wean when feasible beign considered for trach afebril and wbc normal noted ID Subjective ROS Limited/Unobtainable: Yes Subjective on vent Objective Last 24 Hour Vital Signs Date Time Temp Pulse Resp B/P (MAP) Pulse Ox O2 Delivery O2 Flow Rate FiO2 11/06/19 15:00 77 15 158/80 (106) 96 11/06/19 14:00 70 16 146/74 (98) 98 11/06/19 13:00 67 16 149/76 (100) 96 11/06/19 12:00 Mechanical Ventilator 11/06/19 12:00 68 11/06/19 12:00 98.3 65 16 137/68 (91) 96 11/06/19 12:00 40 11/06/19 11:28 80 20 40 40 11/06/19 11:00 69 16 133/65 (87) 94 11/06/19 10:00 69 16 126/62 (83) 96 11/06/19 09:00 98.1 58 16 103/74 (84) 96 11/06/19 08:00 58 11/06/19 08:00 40 11/06/19 08:00 Mechanical Ventilator 11/06/19 08:00 57 16 131/65 (87) 95 11/06/19 07:12 81 20 40 40 11/06/19 07:00 77 27 138/71 (93) 99 11/06/19 06:30 73 16 11/06/19 06:00 70 16 134/67 (89) 93 11/06/19 05:09 79 21 40 40 11/06/19 05:00 71 18 130/68 (88) 94 11/06/19 04:00 Mechanical Ventilator 11/06/19 04:00 40 11/06/19 04:00 97.6 72 16 115/58 (77) 96 11/06/19 03:20 73 11/06/19 03:00 75 21 126/71 (89) 93 11/06/19 02:38 74 18 40 40 11/06/19 02:00 57 16 125/60 (81) 96 11/06/19 01:11 65 16 40 40 11/06/19 01:00 64 16 112/57 (75) 96 11/06/19 00:00 Mechanical Ventilator 11/06/19 00:00 98.1 58 16 124/60 (81) 98 11/05/19 23:30 58 11/05/19 23:00 58 16 131/67 (88) 97 11/05/19 22:57 88 26 40 40 11/05/19 22:00 131/67 11/05/19 22:00 67 16 119/66 (83) 94 11/05/19 21:00 87 21 144/67 (92) 98 11/05/19 20:41 94 20 40 40 11/05/19 20:00 Mechanical Ventilator 11/05/19 20:00 40 11/05/19 20:00 98.7 83 24 126/103 (111) 97 11/05/19 19:36 75 11/05/19 19:24 99 22 40 40 11/05/19 19:00 73 17 125/66 (85) 97 11/05/19 18:00 16 149/78 (101) 95 11/05/19 17:10 98 17 40 40 11/05/19 17:00 82 17 119/68 (85) 90 General Appearance: no apparent distress, on vent, isolation precautions Intake and Output 11/05/19 11/06/19 19:00 07:00 Intake Total 940 ml 1020 ml Output Total 940 ml 1120 ml Balance 0 ml -100 ml IV Total 540 ml 660 ml Tube Feeding 360 ml 300 ml Other 40 ml 60 ml Output Urine Total 940 ml 1120 ml # Bowel Movements 2 Laboratory Tests Test 11/06/19 04:00 White Blood Count 7.1 K/UL (4.8-10.8) Red Blood Count 3.41 M/UL (4.70-6.10) L Hemoglobin 9.4 G/DL (14.2-18.0) L Hematocrit 28.9 % (42.0-52.0) L Mean Corpuscular Volume 85 FL (80-99) Mean Corpuscular Hemoglobin 27.5 PG (27.0-31.0) Mean Corpuscular Hemoglobin Concent 32.6 G/DL (32.0-36.0) Red Cell Distribution Width 15.7 % (11.6-14.8) H Platelet Count 337 K/UL (150-450) Mean Platelet Volume 4.6 FL (6.5-10.1) L Neutrophils (%) (Auto) 59.4 % (45.0-75.0) Lymphocytes (%) (Auto) 22.8 % (20.0-45.0) Monocytes (%) (Auto) 13.4 % (1.0-10.0) H Eosinophils (%) (Auto) 2.8 % (0.0-3.0) Basophils (%) (Auto) 1.6 % (0.0-2.0) Sodium Level 143 MMOL/L (136-145) Potassium Level 3.5 MMOL/L (3.5-5.1) Chloride Level 110 MMOL/L (98-107) H Carbon Dioxide Level 25 MMOL/L (21-32) Anion Gap 8 mmol/L (5-15) Blood Urea Nitrogen 9 mg/dL (7-18) Creatinine 0.8 MG/DL (0.55-1.30) Estimat Glomerular Filtration Rate > 60 mL/min (>60) Glucose Level 94 MG/DL (74-106) Calcium Level 8.1 MG/DL (8.5-10.1) L Carlos Slade MD Nov 06, 2019 16:24
--- NOTE | 2019-11-06 16:33 | NUR ---
CASE MANAGEMENT: REVIEW 11/06/19 SI: RESP FAILURE . PNA . INFLUENZA . VRE (+) 98.1 58 16 103/74 96% MECH VENT FIO2 40 H/H 9.4/28.9 CL-110 CA+8.1 STOOL OB (+) IS: IV LEVOPHED IV Q24HR AMIODARONE GT QD IV ZYVOX BID IV PROTONIX QD SEROQUEL GT BID HEPARIN SQ BID SYNTHROID GT QAM AYANA-HEX 2% TP QD GTUBE FEEDING DROPLET ISOLATION ICU STATUS DCP: PATIENT IS FROM [facility]: NON-VIOLENT RESTRAINTS MONITORING CHEST X-RAY- SHOWS WORSENING DENSE INFILTRATE
--- NOTE | 2019-11-06 19:18 | NUR ---
HAND-OFF: Report and PT given to VENKAT Smith.
--- NOTE | 2019-11-06 19:19 | NUR ---
NURSE NOTES: patient received from VENKAT Chávez. patient awake and oriented to self but confused. VSS and afebrile. patient with 7.5 ETT at 23cm left side lipline. respirations even with ventilator AC 16 TV 600 FiO2 40% oxygen saturation 100%. gtube running glucerna 1.5 @ 30mlhr with no residual noted so feeding increased to 40ml/hr to reach goal 50ml/hr. right femoral TLC clean and asymptomatic. logan catheter draining clear yellow urine. will continue to monitor.
--- NOTE | 2019-11-06 19:38 | NUR ---
RESPIRATORY NOTE: Received pt on AC 16, 600VT, 40%, no PEEP. Pt intubated w/ ETT 7.5 @ 23cm lipline, secured by anchorfast. Pt is awake, responds to stimuli. B/S marcy. rhonchi, sxn moderate amounts of thick/frothy, pale-yellow to harrell-yellow secretions. Vent plugged into red outlet, ambubag at bedside. Pt in no apparent distress at this time. Will continue to monitor pt.
[2019-11-06] MEDS: Dyna-Hex 2% Top Sol 2oz TOPIC SCH (20:25)
--- NOTE | 2019-11-06 22:00 | NUR ---
NURSE NOTES: patient awake, anxious/restless and confused. VSS and afebrile. gtube glucerna 1.5 increased from 40ml/hr to 50ml/hr with no residual noted. patient given prn Ativan. logan catheter draining clear yellow urine. right femoral TLC clean and asymptomatic. patient had one small soft brown BM. patient repositioned and oral care provided. will continue to monitor.
[2019-11-07] VITALS (24 sets, daily range): BP systolic 117–156; BP diastolic 55–99
--- NOTE | 2019-11-07 | NUR ---
NURSE NOTES: patient asleep arousable to light shaking. VSS and afebrile. respirations even with moderate amount of thick harrell secretions noted. gtube running glucerna 1.5 @ 50ml/hr with 30ml residual noted. logan draining clear yellow urine. patient repositioned and oral care provided. will continue to monitor.
--- NOTE | 2019-11-07 02:00 | NUR ---
NURSE NOTES: patient asleep arousable to light touch. VSS and afebrile. respirations even with moderate amount of thin harrell secretions noted, oxygen saturation 96%. gtube running glucerna 1.5 @ 50ml/hr held due to 120ml residual noted. logan catheter draining clear yellow urine. right femoral TLC clean and asymptomatic. patient given bath, repositioned, oral care provided. will continue to monitor.
--- NOTE | 2019-11-07 04:00 | NUR ---
NURSE NOTES: patient awake but confused. VSS and afebrile. gtube feeding continues to be held due to high residual. patient had small brown soft bowel movement. patient repositioned and oral care provided. right femoral TLC clean and asymptomatic. logan catheter draining clear yellow urine. will continue to monitor.
--- NOTE | 2019-11-07 06:00 | NUR ---
NURSE NOTES: patient awake, restless and confused. patient with 7.5 ETT at 23cm lipline on left. Ventilator AC 16 TV 600 FiO2 40%, oxygen saturation 100%. right femoral TLC clean and asymptomatic. gtube Glucerna 1.5 held for medication. logan catheter draining clear yellow urine. skin warm dry and intact. patient repositioned and oral care provided. will continue to monitor. NURSE NOTES:
--- NOTE | 2019-11-07 07:31 | NUR ---
HAND-OFF: Report given to VENKAT Jaime.
--- NOTE | 2019-11-07 07:32 | NUR ---
NURSE NOTES: Received patient from VENKAT Smith. Patient alert to name and confused to time, place, and purpose. Patient showing sinus rhythm on the teamcenter solution architect at this time. Patient orally intubated with size 7.5cm ET tube and 23cm noted at this lip line. Patient on ventilator setting of AC 16, tidal volume 600, FiO2 40%, and PEEP 0. Patient tolerating with no sign of acute distress. SpO2 100% and RR 17. Patient on bilateral soft wrist restraint as he has been witnessed attempting to pull out ET tube. Peripheral pulses present. NO edema or skin breakdown noted. Patient has gastrostomy tube that is patent and clamped at this time. Patient has order for tube feeding of Glucerna 1.5 at 50mL/hr goal. Tube feeding was held over night for high residual and Synthroid administration. Will restart feeding at this time at 30mL/hr and monitor residual. Patient has logan for urine retention that that is patent and draining at this time. Patient skin intact. Will turn every two hours. Patient has right femoral triple lumen catheter that is patent, asymptomatic, and saline locked at this time. Patient bed in low position with bed alarm on and call light in reach at this time. WIll continue to monitor. Patient repositioned and oral care performed.
[2019-11-07] MEDS: Pantoprazole Inj IVP SCH (08:34)
[2019-11-07] MEDS: Amiodarone 200mg tab PEG SCH (08:35)
[2019-11-07] MEDS: Heparin 5000 units/ml inj SUBQ SCH ×2 (08:36→20:38)
--- NOTE | 2019-11-07 08:36 | Infectious Diseases Prog Note ---
Assessment/Plan Assessment/Plan A: Afebrile Leukocytosis, neutrophil predominant, SP Septic shock, sp off of pressors PNA Influenza A Probable superimposed bacterial PNA SARS CoV PCR negative CXR: Bilateral mostly nodular mostly interstitial disease, as described. This could represent interstitial pneumonia or edema, among many other possibilities. However, given the nodular appearance and the presence of an infusion catheter the possibility of nodular metastatic disease should also be considered. Unlikely UTI UA 10-15 WBC UCX: NG VRE bacteremia BCx: VRE 10/29 TTE: focal AV sclerosis with adequate cusp excursion. thickened MV leaflets with normal excursion. mild mitral annulus and aortic root calcification. normal TV. no MR. mild TR. PV not visualized. QTc 552 Afib COPD Hypothyroid Dyslipidemia HTN DM Anemia CVA G tube, h/o abscess complication head and neck cancer Plan: Linezolid #6/14 4/ Tamiflu #5 / DC amikacin and ertapenem #4 / SP Vanc #3 monitor temp and CBC monitor resp status isolation precaution per hospital protocol f/u bcx TTE without severe valve insufficiency and bacteremia low grade. recommend repeating bcx at end of therapy to ensure resolution of bacteremia. If has recurrent fevers, will recommend ILENE. WENDI RN Thank you for this consult. [facility] Will continue to follow the patient with you. Subjective Allergies: Coded Allergies: No Known Allergies (Unverified , 10/30/19) Subjective Afebrile. FiO2 40% yellow secretions follows simple commands Objective Vital Signs Last 24 Hour Vital Signs Date Time Temp Pulse Resp B/P (MAP) Pulse Ox O2 Delivery O2 Flow Rate FiO2 11/07/19 07:24 78 19 40 11/07/19 07:00 75 14 150/76 (100) 100 11/07/19 06:30 76 16 11/07/19 06:00 75 15 151/67 (95) 100 11/07/19 05:00 78 15 139/89 (106) 100 11/07/19 05:00 77 16 40 11/07/19 04:00 73 11/07/19 04:00 40 11/07/19 04:00 98.1 75 16 146/97 (113) 98 11/07/19 04:00 Mechanical Ventilator 11/07/19 03:05 73 17 40 11/07/19 03:00 73 16 134/87 (103) 97 11/07/19 02:00 71 17 143/74 (97) 100 11/07/19 01:08 69 16 40 11/07/19 01:00 70 16 133/71 (91) 99 11/07/19 00:00 Mechanical Ventilator 11/07/19 00:00 98.1 72 16 125/67 (86) 95 11/06/19 23:00 78 18 138/70 (92) 100 11/06/19 22:58 83 22 40 11/06/19 21:26 77 17 40 11/06/19 21:26 159/79 11/06/19 21:00 82 17 159/79 (105) 97 11/06/19 20:00 79 11/06/19 20:00 Mechanical Ventilator 11/06/19 20:00 40 11/06/19 20:00 98.8 82 18 134/99 (111) 95 11/06/19 19:35 75 17 40 11/06/19 19:00 79 19 126/109 (115) 98 11/06/19 18:00 69 16 153/88 (109) 97 11/06/19 17:54 67 16 40 40 11/06/19 17:00 70 15 142/69 (93) 96 11/06/19 16:00 40 11/06/19 16:00 74 11/06/19 16:00 97.7 76 16 160/65 (96) 99 11/06/19 16:00 Mechanical Ventilator 11/06/19 15:30 78 18 40 40 11/06/19 15:00 77 15 158/80 (106) 96 11/06/19 14:00 70 16 146/74 (98) 98 11/06/19 13:00 67 16 149/76 (100) 96 11/06/19 12:00 Mechanical Ventilator 11/06/19 12:00 68 11/06/19 12:00 98.3 65 16 137/68 (91) 96 11/06/19 12:00 40 11/06/19 11:28 80 20 40 40 11/06/19 11:00 69 16 133/65 (87) 94 11/06/19 10:00 69 16 126/62 (83) 96 11/06/19 09:00 98.1 58 16 103/74 (84) 96 Height (Feet): 6 Height (Inches): 1.00 Weight (Pounds): 151 Objective Gen: NAD. intubated. well nourished HEENT: ETT. CV: S1+S2. no rubs or gallop Resp: coarse. regular. equal chest rise. no wheezes Abd: soft. G tube. nondistended. Skin: warm. dry. Neuro: awake. follows simple commands Current Medications Medications (Trade) Dose Ordered Sig/Tasha Route PRN Reason Start Time Stop Time Status Last Admin Dose Admin Acetaminophen (Tylenol) 650 mg Q4H PRN ORAL fever 10/30/19 11:15 11/29/19 11:14 Amiodarone HCl (Cordarone) 100 mg DAILY PEG 11/04/19 09:00 01/29/20 08:59 11/06/19 09:15 Chlorhexidine Gluconate (Megan-Hex 2%) 1 applic DAILY@2000 TOPIC 11/01/19 20:00 01/30/20 19:59 11/06/19 20:25 Heparin Sodium (Porcine) (Heparin 5000 units/ml) 5,000 units EVERY 12 HOURS SUBQ 11/02/19 09:00 12/17/19 08:59 11/06/19 20:26 Levothyroxine Sodium (Synthroid) 50 mcg DAILY@0630 GT 10/31/19 06:30 11/30/19 06:29 11/07/19 05:26 Linezolid 300 ml @ 300 mls/hr Q12HR IVPB 11/02/19 13:30 11/15/19 23:59 11/06/19 20:26 Lorazepam (Ativan 2mg/ml 1ml) 2 mg Q2HR PRN IV For Anxiety 11/06/19 22:30 11/13/19 22:29 11/06/19 22:50 Norepinephrine Bitartrate 4 mg/ Dextrose 254 ml @ 0 mls/hr Q24H IV 10/30/19 22:00 11/29/19 21:59 11/01/19 23:54 Ondansetron HCl (Zofran) 4 mg Q6H PRN IVP Nausea & Vomiting 10/30/19 11:15 11/29/19 11:14 Pantoprazole (Protonix) 40 mg DAILY IVP 10/31/19 09:00 11/30/19 08:59 11/06/19 09:16 Polyethylene Glycol (Miralax) 17 gm DAILYPRN PRN ORAL Constipation 10/30/19 11:15 11/29/19 11:14 Quetiapine Fumarate (SEROqueL) 100 mg Q12HR GT 10/30/19 23:00 12/14/19 22:59 11/06/19 21:26 Yifan Rivera MD Nov 07, 2019 08:36
--- NOTE | 2019-11-07 10:00 | NUR ---
NURSE NOTES: Vital signs stable. Oral, ET tube suction performed at this time. patient repositioned. Restraints remain in place as patient immediately continues to try to reach for ET tube. Will continue to monitor.
--- NOTE | 2019-11-07 10:48 | Pulmonolgy Critical Care Note ---
Critical Care - Asmt/Plan Problems: (1) Acute respiratory failure (2) Septic shock (3) Enterococcal bacteremia (4) Nosocomial pneumonia (5) COPD (chronic obstructive pulmonary disease) (6) Suspected 2019-nCoV infection (7) Atrial fibrillation (8) Severe anemia (9) Hypothyroidism (10) Psychosis Respiratory: monitor respiratory rate, adjust FIO2, CXR Cardiac: continue to monitor HR/BP Renal: check electrolytes Infectious Disease: check cultures, continue antibiotics Gastrointestinal: continue feedings/current rate Endocrine: monitor blood sugar Hematologic: monitor H/H Prophylaxis: Protonix, Heparin Disposition: keep in ICU Notes Reviewed: silk spreader, cardio Discussed with: nurses, consultants, casework supervisormanager code - Objective Last 24 Hour Vital Signs Date Time Temp Pulse Resp B/P (MAP) Pulse Ox O2 Delivery O2 Flow Rate FiO2 11/07/19 10:00 79 16 121/75 (90) 100 11/07/19 09:21 71 16 40 11/07/19 09:00 98.2 70 17 145/79 (101) 100 11/07/19 08:00 71 17 147/66 (93) 100 11/07/19 08:00 40 11/07/19 08:00 Mechanical Ventilator 11/07/19 08:00 77 11/07/19 07:24 78 19 40 11/07/19 07:00 75 14 150/76 (100) 100 11/07/19 06:30 76 16 11/07/19 06:00 75 15 151/67 (95) 100 11/07/19 05:00 78 15 139/89 (106) 100 11/07/19 05:00 77 16 40 11/07/19 04:00 73 11/07/19 04:00 40 11/07/19 04:00 98.1 75 16 146/97 (113) 98 11/07/19 04:00 Mechanical Ventilator 11/07/19 03:05 73 17 40 11/07/19 03:00 73 16 134/87 (103) 97 11/07/19 02:00 71 17 143/74 (97) 100 11/07/19 01:08 69 16 40 11/07/19 01:00 70 16 133/71 (91) 99 11/07/19 00:00 Mechanical Ventilator 11/07/19 00:00 98.1 72 16 125/67 (86) 95 11/06/19 23:00 78 18 138/70 (92) 100 11/06/19 22:58 83 22 40 11/06/19 21:26 77 17 40 11/06/19 21:26 159/79 11/06/19 21:00 82 17 159/79 (105) 97 11/06/19 20:00 79 11/06/19 20:00 Mechanical Ventilator 11/06/19 20:00 40 11/06/19 20:00 98.8 82 18 134/99 (111) 95 11/06/19 19:35 75 17 40 11/06/19 19:00 79 19 126/109 (115) 98 11/06/19 18:00 69 16 153/88 (109) 97 11/06/19 17:54 67 16 40 40 11/06/19 17:00 70 15 142/69 (93) 96 11/06/19 16:00 40 11/06/19 16:00 74 11/06/19 16:00 97.7 76 16 160/65 (96) 99 11/06/19 16:00 Mechanical Ventilator 11/06/19 15:30 78 18 40 40 11/06/19 15:00 77 15 158/80 (106) 96 11/06/19 14:00 70 16 146/74 (98) 98 11/06/19 13:00 67 16 149/76 (100) 96 11/06/19 12:00 Mechanical Ventilator 11/06/19 12:00 68 11/06/19 12:00 98.3 65 16 137/68 (91) 96 11/06/19 12:00 40 11/06/19 11:28 80 20 40 40 11/06/19 11:00 69 16 133/65 (87) 94 Status: awake Condition: critical HEENT: atraumatic Neck: full ROM Lungs: chest wall tender Heart: HR/BP stable Abdomen: soft, non-tender Extremities: no C/C/E, edema Critical Care - Subjective ROS Limited/Unobtainable: No Condition: critical EKG Rhythm: Sinus Rhythm FI02: 40 Vent Support Breath Rate: 16 Vent Support Mode: AC Vent Tidal Volume: 600 Sputum Amount: Moderate PEEP: 0.0 PIP: 32 Tube Feeding Amount: 0 I&O: Intake and Output 11/06/19 11/07/19 19:00 07:00 Intake Total 860 ml 630 ml Output Total 890 ml 1300 ml Balance -30 ml -670 ml Intake Free Water 50 ml IV Total 390 ml 300 ml Tube Feeding 370 ml 280 ml Other 100 ml Output Urine Total 890 ml 1300 ml # Bowel Movements 1 2 ET-Tube: 7.5 ET Position: 23 Jackie Kaiser MD Nov 07, 2019 10:48
--- NOTE | 2019-11-07 12:00 | NUR ---
NURSE NOTES: Patient mentation remains unchanged. Patient showing sinus rhythm on the electronic device monitor. Patient remains orally intubated with size 7.5cm ET tube and 23cm noted at this lip line. Ventilator setting AC 16, tidal volume 600, FiO2 40%, and PEEP 0. Patient tolerating setting with no sign of acute distress. SpO2 100% and RR 17. Patient on bilateral soft wrist restraint as he has been witnessed attempting to pull out ET tube. Peripheral pulses present. NO edema or skin breakdown noted. Gastrostomy tube patent and clamped at this time. Glucerna 1.5 running at 30mL/hr goal. Residual 40mL at this time. Will increase rate when appropriate to reach a goal of 50mL/hr. Patel for urine retention patent and draining at this time. Skin intact. Will continue to turn every two hours. Right femoral triple lumen catheter remains patent, asymptomatic, and saline locked at this time. Patient bed in low position with bed alarm on and call light in reach at this time. Will continue to monitor. Patient repositioned and oral care performed.
--- NOTE | 2019-11-07 14:00 | NUR ---
NURSE NOTES: Vital signs stable. Oral/ET tube suction performed at this time. Patient repositioned. Restraints remain in place as patient immediately continues to try to reach for ET tube. Will continue to monitor.
--- NOTE | 2019-11-07 15:41 | Internal Med Progress Note ---
Subjective Date of Service: Nov 07, 2019 Physician Name KarolinaGallito Attending Physician Danny Stark MD Current Medications Medications (Trade) Dose Ordered Sig/Tasha Route PRN Reason Start Time Stop Time Status Last Admin Dose Admin Acetaminophen (Tylenol) 650 mg Q4H PRN ORAL fever 10/30/19 11:15 11/29/19 11:14 Amiodarone HCl (Cordarone) 100 mg DAILY PEG 11/04/19 09:00 01/29/20 08:59 11/07/19 08:35 Chlorhexidine Gluconate (Megan-Hex 2%) 1 applic DAILY@1999 TOPIC 11/01/19 20:00 01/30/20 19:59 11/06/19 20:25 Heparin Sodium (Porcine) (Heparin 5000 units/ml) 5,000 units EVERY 12 HOURS SUBQ 11/02/19 09:00 12/17/19 08:59 11/07/19 08:36 Levothyroxine Sodium (Synthroid) 50 mcg DAILY@0630 GT 10/31/19 06:30 11/30/19 06:29 11/07/19 05:26 Linezolid 300 ml @ 300 mls/hr Q12HR IVPB 11/02/19 13:30 11/15/19 23:59 11/07/19 08:35 Lorazepam (Ativan 2mg/ml 1ml) 2 mg Q2HR PRN IV For Anxiety 11/06/19 22:30 11/13/19 22:29 11/06/19 22:50 Norepinephrine Bitartrate 4 mg/ Dextrose 254 ml @ 0 mls/hr Q24H IV 10/30/19 22:00 11/29/19 21:59 11/01/19 23:54 Ondansetron HCl (Zofran) 4 mg Q6H PRN IVP Nausea & Vomiting 10/30/19 11:15 11/29/19 11:14 Pantoprazole (Protonix) 40 mg DAILY IVP 10/31/19 09:00 11/30/19 08:59 11/07/19 08:34 Polyethylene Glycol (Miralax) 17 gm DAILYPRN PRN ORAL Constipation 10/30/19 11:15 11/29/19 11:14 Quetiapine Fumarate (SEROqueL) 100 mg Q12HR GT 10/30/19 23:00 12/14/19 22:59 11/07/19 08:35 Allergies: Coded Allergies: No Known Allergies (Unverified , 10/30/19) ROS Limited/Unobtainable: Yes Subjective 73 YO M with history of esophageal cancer admitted with respiratory failure. Cover for [facility] Med-Dr Stark. ICU. Intubted and sedated Objective Last Vital Signs Date Time Temp Pulse Resp B/P (MAP) Pulse Ox O2 Delivery O2 Flow Rate FiO2 11/07/19 14:49 85 18 40 11/07/19 13:00 156/56 (89) 99 11/07/19 12:00 Mechanical Ventilator 11/07/19 12:00 98.2 10/30/19 22:00 15.0 Intake and Output 11/06/19 11/07/19 19:00 07:00 Intake Total 860 ml 630 ml Output Total 890 ml 1300 ml Balance -30 ml -670 ml Intake Free Water 50 ml IV Total 390 ml 300 ml Tube Feeding 370 ml 280 ml Other 100 ml Output Urine Total 890 ml 1300 ml # Bowel Movements 1 2 Objective PHYSICAL EXAMINATION: VITAL SIGNS: Temperature 98.1, respirations 25, pulse 92, blood pressure 95/59. GENERAL: The patient is well-developed, well-nourished male, who is intubated and sedated. HEENT: Eyes, pupils are equal and responsive to light and accommodation. Extraocular movements are intact. NECK: Supple without lymphadenopathy. CHEST: Mech vent; Coarse mechanical breath sounds bilaterally without wheezes or rales. CARDIOVASCULAR: Regular rhythm and rate. S1, S2 are normal without murmurs, rubs, or gallops. ABDOMEN: Soft, nontender, and nondistended. Positive bowel sounds. No evidence of hepatosplenomegaly. Currently, no rebound or guarding noted. EXTREMITIES: Negative for clubbing, cyanosis, or edema. RECTAL/GENITAL: Not performed. NEUROLOGICAL: Unable to assess. Assessment/Plan Assessment/Plan ASSESSMENT: This is a 73-year-old male. 1. Respiratory failure. 2. Pneumonia. 3. Esophageal cancer. 4. Diabetes type 2. 5. Hypertension. 6. Hypercholesterolemia. 7. Atrial fibrillation. 8. Hypothyroidism. 9. Dysphagia. 10. History of prostate cancer. TREATMENT: 1. Pneumonia/respiratory failure. A Pulmonary consultation has been obtained with Dr. Jackie Kaiser. ABX = linezolid. An Infectious Disease consultation has been obtained with Dr. Yifan Rivera. We will follow recommendations of Infectious Disease and Pulmonary. COVID 19=neg 2. Esophageal cancer. 3. Diabetes type 2. A NovoLog sliding scale has been instituted. 4. Hypertension. The patient is currently hypotensive and probable sepsis. 5. Hypercholesterolemia. Continue atorvastatin as above. 6. Atrial fibrillation. Continue amiodarone as above. 7. Hypothyroidism. Continue levothyroxine as above. 8. Dysphagia, status post PEG placement. 9. History of prostate cancer. Gallito Turcios MD Nov 07, 2019 15:41
--- NOTE | 2019-11-07 16:00 | NUR ---
NURSE NOTES: Patient mentation remains unchanged. Patient showing sinus rhythm on the monitoring coordinator. Patient remains orally intubated with size 7.5cm ET tube and 23cm noted at this lip line. Ventilator setting AC 16, tidal volume 600, FiO2 40%, and PEEP 0. Patient tolerating setting with no sign of acute distress. SpO2 100% and RR 17. Patient on bilateral soft wrist restraint as he has been witnessed attempting to pull out ET tube. Peripheral pulses present. NO edema or skin breakdown noted. Gastrostomy tube patent and clamped at this time. Glucerna 1.5 running at 30mL/hr goal. Will increase rate when appropriate to reach a goal of 50mL/hr. Patel for urine retention patent and draining at this time. Skin intact. Will continue to turn every two hours. Right femoral triple lumen catheter remains patent, asymptomatic, and saline locked at this time. Patient bed in low position with bed alarm on and call light in reach at this time. Will continue to monitor. Patient repositioned and oral care performed.
--- NOTE | 2019-11-07 17:24 | Cardiology Progress Note ---
Assessment/Plan Assessment/Plan 1. Paroxysmal episodes of atrial fibrillation. 2. Respiratory failure. 3. Influenza A positive. covid neg 4. Malignant neoplasm of the larynx. 5. History of hypertension. 6. History of hyperlipidemia. 7. History of hypothyroidism. 8. Respiratory failure on a mechanical ventilator. 9. Diabetes mellitus type 2. 10. Coagulopathy. 11. Abnormal liver function tests. 12. Hypotension likely from sepsis and shock 13. VRE bacteremia influenza positive off pressor anemic but stable wbc nl covid 19 neg final echo noted cxr reviewed worsening dense infiltrate on 11/03 tele reviewed sinus no afib documented some residuals so feedign decreased wean when feasible remains afebrile Subjective ROS Limited/Unobtainable: Yes Cardiovascular: Reports: chest pain Subjective on vent Objective Last 24 Hour Vital Signs Date Time Temp Pulse Resp B/P (MAP) Pulse Ox O2 Delivery O2 Flow Rate FiO2 11/07/19 16:00 40 11/07/19 16:00 81 11/07/19 16:00 Mechanical Ventilator 11/07/19 16:00 98.4 82 16 132/74 (93) 100 11/07/19 15:00 78 16 117/79 (92) 100 11/07/19 14:49 85 18 40 11/07/19 14:00 85 16 143/82 (102) 91 11/07/19 13:00 83 17 156/56 (89) 99 11/07/19 12:43 80 18 40 11/07/19 12:00 80 11/07/19 12:00 40 11/07/19 12:00 Mechanical Ventilator 11/07/19 12:00 98.2 81 17 147/72 (97) 100 11/07/19 11:28 81 16 40 11/07/19 11:00 82 16 135/69 (91) 100 11/07/19 10:00 79 16 121/75 (90) 100 11/07/19 09:21 71 16 40 11/07/19 09:00 98.2 70 17 145/79 (101) 100 11/07/19 08:00 71 17 147/66 (93) 100 11/07/19 08:00 40 11/07/19 08:00 Mechanical Ventilator 11/07/19 08:00 77 11/07/19 07:24 78 19 40 11/07/19 07:00 75 14 150/76 (100) 100 11/07/19 06:30 76 16 11/07/19 06:00 75 15 151/67 (95) 100 11/07/19 05:00 78 15 139/89 (106) 100 11/07/19 05:00 77 16 40 11/07/19 04:00 73 11/07/19 04:00 40 11/07/19 04:00 98.1 75 16 146/97 (113) 98 11/07/19 04:00 Mechanical Ventilator 11/07/19 03:05 73 17 40 11/07/19 03:00 73 16 134/87 (103) 97 11/07/19 02:00 71 17 143/74 (97) 100 11/07/19 01:08 69 16 40 11/07/19 01:00 70 16 133/71 (91) 99 11/07/19 00:00 Mechanical Ventilator 11/07/19 00:00 98.1 72 16 125/67 (86) 95 11/06/19 23:00 78 18 138/70 (92) 100 11/06/19 22:58 83 22 40 11/06/19 21:26 77 17 40 11/06/19 21:26 159/79 11/06/19 21:00 82 17 159/79 (105) 97 11/06/19 20:00 79 11/06/19 20:00 Mechanical Ventilator 11/06/19 20:00 40 11/06/19 20:00 98.8 82 18 134/99 (111) 95 11/06/19 19:35 75 17 40 11/06/19 19:00 79 19 126/109 (115) 98 11/06/19 18:00 69 16 153/88 (109) 97 11/06/19 17:54 67 16 40 40 General Appearance: no apparent distress, alert, on vent, patient on isolation , isolation precautions Intake and Output 11/06/19 11/07/19 19:00 07:00 Intake Total 860 ml 630 ml Output Total 890 ml 1300 ml Balance -30 ml -670 ml Intake Free Water 50 ml IV Total 390 ml 300 ml Tube Feeding 370 ml 280 ml Other 100 ml Output Urine Total 890 ml 1300 ml # Bowel Movements 1 2 Carlos Slade MD Nov 07, 2019 17:24
--- NOTE | 2019-11-07 18:00 | NUR ---
NURSE NOTES: Vital signs stable at this time. Patient repositioned.
--- NOTE | 2019-11-07 19:17 | NUR ---
HAND-OFF: Report given to VENKAT Smith. Patient vital sign stable. Endorsed to follow up.
--- NOTE | 2019-11-07 19:17 | NUR ---
NURSE NOTES: patient received from VENKAT Jaime. patient awake and oriented to self. VSS and afebrile. respirations even with thick harrell oral secretions noted. patient with 7.5 ETT at 23cm lipline on ventilator AC 16 TV 600 FiO2 40%. patient with gtube glucerna 1.5 at 40ml/hr with 60ml of residual noted. right femoral TLC clean and asymptomatic. logan catheter draining clear yellow urine. will continue to monitor.
[2019-11-07] MEDS: Dyna-Hex 2% Top Sol 2oz TOPIC SCH (20:37)
--- NOTE | 2019-11-07 22:00 | NUR ---
NURSE NOTES: patient awake oriented to self and restless. patient on ventilator with moderate amount of thick harrell secretions oxygen saturation 99%. VSS and afebrile. gtube running glucerna 1.5 at 40ml/hr. logan catheter draining clear yellow urine. patient repositioned oral care provided. will continue to monitor.
[2019-11-08] VITALS (24 sets, daily range): BP systolic 90–172; BP diastolic 51–94
--- NOTE | 2019-11-08 | NUR ---
NURSE NOTES: patient awake oriented to self and restless. VSS and afebrile. gtube running glucerna 1.5 at 40ml/hr with 30ml residual noted, feeding increased to 50ml/hr to reach goal. logan catheter draining clear yellow urine. patient repositioned oral care provided. will continue to monitor.
[2019-11-08] MEDS: LORazepam Inj 2mg/ml 1ml IV PRN ×3 (01:55→20:38)
--- NOTE | 2019-11-08 02:00 | NUR ---
NURSE NOTES: patient awake and restless. VSS and afebrile. right femoral TLC clean and asymptomatic. gtube running glucerna 1.5 @50ml/hr. logan catheter draining clear yellow urine. PRN ativan administered. patient repositioned, oral care provided. will continue to monitor.
--- NOTE | 2019-11-08 04:00 | NUR ---
NURSE NOTES: patient asleep arousable to name and light shaking. VSS and afebrile. gtube running glucerna at 50ml/hr. right femoral TLC clean and asymptomatic. logan catheter draining clear yellow urine. patient given bath and oral care provided. will continue to monitor.
[2019-11-08 05:46] LABS: BASOPHILS % (AUTO) 0.9 % (0.0-2.0); EOSINOPHILS % (AUTO) 2.7 % (0.0-3.0); HEMATOCRIT 28.8 % (42.0-52.0); HEMOGLOBIN 9.4 G/DL (14.2-18.0); LYMPHOCYTES % (AUTO) 17.8 % (20.0-45.0); MEAN CORPUSCULAR VOLUME 84 FL (80-99); MONOCYTES % (AUTO) 8.1 % (1.0-10.0); NEUTROPHILS % (AUTO) 70.5 % (45.0-75.0); PLATELET COUNT 339 K/UL (150-450); RED BLOOD COUNT 3.44 M/UL (4.70-6.10); RED CELL DISTRIBUTION WIDTH 15.8 % (11.6-14.8); WHITE BLOOD COUNT 7.6 K/UL (4.8-10.8)
--- NOTE | 2019-11-08 06:00 | NUR ---
NURSE NOTES: patient asleep arousable to light shaking. patient with 7.5 ETT at 23cm lipline on ventilator AC 16 TV 600 FiO2 40%. VSS and afebrile. right femoral TLC clean and asymptomatic. gtube glucerna 1.5 held for medication. logan catheter draining clear yellow urine. patient repositioned and oral care provided. will continue to monitor.
[2019-11-08 06:03] LABS: ALANINE AMINOTRANSFERASE 89 U/L (12-78); ALBUMIN 1.9 G/DL (3.4-5.0); ALBUMIN/GLOBULIN RATIO 0.4 (1.0-2.7); ALKALINE PHOSPHATASE 201 U/L (46-116); ASPARTATE AMINO TRANSFERASE 123 U/L (15-37); BILIRUBIN,TOTAL 0.2 MG/DL (0.2-1.0); BLOOD UREA NITROGEN 10 mg/dL (7-18); CALCIUM 7.7 MG/DL (8.5-10.1); CARBON DIOXIDE 27 MMOL/L (21-32); CHLORIDE 108 MMOL/L (98-107); PHOSPHORUS 2.7 MG/DL (2.5-4.9); POTASSIUM 3.8 MMOL/L (3.5-5.1); SODIUM 143 MMOL/L (136-145)
--- NOTE | 2019-11-08 07:10 | NUR ---
HAND-OFF: Report given to VENKAT Doss.
--- NOTE | 2019-11-08 07:11 | NUR ---
NURSE NOTES: Received patient from Sarah ROBLEDO. Patient is awake, alert and oriented x2. Sinus Rhythm on the heart monitor, HR 65. Receiving oxygen via ET Tube 7.5 23cm at the lip line, vent settings: AC 16, TV 600, FiO2 40%. G-tube is intact and receiving Glucerna 1.5 at 50cc/hr. Patel catheter is intact and draining. IV site is Right femoral TLC intact and asymptomatic. Bed is locked, placed in lowest position, side rails up x3, bed alarm on, call light within reach. Will continue to monitor.
[2019-11-08] MEDS: Amiodarone 200mg tab PEG SCH (08:17)
[2019-11-08] MEDS: Pantoprazole Inj IVP SCH (08:17)
[2019-11-08] MEDS: Heparin 5000 units/ml inj SUBQ SCH ×2 (08:19→20:34)
--- NOTE | 2019-11-08 08:27 | Infectious Diseases Prog Note ---
Assessment/Plan Assessment/Plan A: Afebrile Leukocytosis, neutrophil predominant, SP Septic shock, sp off of pressors PNA Influenza A, sp rx SARS CoV PCR negative CXR: Bilateral mostly nodular mostly interstitial disease, as described. This could represent interstitial pneumonia or edema, among many other possibilities. However, given the nodular appearance and the presence of an infusion catheter the possibility of nodular metastatic disease should also be considered. Unlikely UTI UA 10-15 WBC UCx: NG VRE bacteremia BCx: VRE 10/29 TTE: focal AV sclerosis with adequate cusp excursion. thickened MV leaflets with normal excursion. mild mitral annulus and aortic root calcification. normal TV. no MR. mild TR. PV not visualized. QTc 552 Afib COPD Hypothyroid Dyslipidemia HTN DM Anemia CVA G tube, h/o abscess complication head and neck cancer Plan: Linezolid #7/14 4/ Tamiflu #5 4/ DC amikacin and ertapenem #4 / SP Vanc #3 monitor temp and CBC monitor resp status isolation precaution per hospital protocol f/u bcx TTE without severe valve insufficiency and bacteremia low grade. recommend repeating bcx at end of therapy to ensure resolution of bacteremia. If has recurrent fevers, will recommend ILENE. WENDI RN Thank you for this consult. [facility] Will continue to follow the patient with you. Subjective Allergies: Coded Allergies: No Known Allergies (Unverified , 10/30/19) Subjective Afebrile. FiO2 40% Pt is awake and tracking but having difficult time communicating Objective Vital Signs Last 24 Hour Vital Signs Date Time Temp Pulse Resp B/P (MAP) Pulse Ox O2 Delivery O2 Flow Rate FiO2 11/08/19 07:00 64 16 98/54 (69) 97 11/08/19 06:06 61 16 11/08/19 06:00 60 16 102/53 (69) 99 11/08/19 05:23 58 16 40 11/08/19 05:00 67 16 125/64 (84) 99 11/08/19 04:00 Mechanical Ventilator 11/08/19 04:00 98.5 63 16 99/56 (70) 100 11/08/19 04:00 64 11/08/19 04:00 40 11/08/19 03:21 79 17 40 11/08/19 03:19 79 17 40 11/08/19 03:00 64 16 105/60 (75) 100 11/08/19 02:00 76 16 111/94 (100) 99 11/08/19 01:26 84 18 40 11/08/19 01:00 81 17 139/70 (93) 98 11/08/19 00:32 Mechanical Ventilator 11/08/19 00:00 98.1 77 18 137/90 (106) 96 11/07/19 23:19 76 17 40 11/07/19 23:00 79 19 143/93 (110) 100 11/07/19 22:00 76 18 144/99 (114) 100 11/07/19 22:00 137/90 11/07/19 21:23 77 16 40 11/07/19 21:00 76 17 148/55 (86) 99 11/07/19 20:00 Mechanical Ventilator 11/07/19 20:00 98.6 76 17 143/79 (100) 99 11/07/19 20:00 79 11/07/19 20:00 40 11/07/19 19:46 78 16 40 11/07/19 19:00 73 16 135/88 (104) 100 11/07/19 18:00 75 16 134/72 (92) 100 11/07/19 17:19 78 17 40 11/07/19 17:00 78 17 136/88 (104) 98 11/07/19 16:00 40 11/07/19 16:00 81 11/07/19 16:00 Mechanical Ventilator 11/07/19 16:00 98.4 82 16 132/74 (93) 100 11/07/19 15:00 78 16 117/79 (92) 100 11/07/19 14:49 85 18 40 11/07/19 14:00 85 16 143/82 (102) 91 11/07/19 13:00 83 17 156/56 (89) 99 11/07/19 12:43 80 18 40 11/07/19 12:00 80 11/07/19 12:00 40 11/07/19 12:00 Mechanical Ventilator 11/07/19 12:00 98.2 81 17 147/72 (97) 100 11/07/19 11:28 81 16 40 11/07/19 11:00 82 16 135/69 (91) 100 11/07/19 10:00 79 16 121/75 (90) 100 11/07/19 09:21 71 16 40 11/07/19 09:00 98.2 70 17 145/79 (101) 100 Height (Feet): 6 Height (Inches): 1.00 Weight (Pounds): 153 Objective Gen: NAD. intubated. HEENT: ETT. CV: S1+S2. no rubs or gallop Resp: coarse. regular. equal chest rise. no wheezes Abd: soft. G tube. nondistended. Skin: warm. dry. Neuro: awake. follows simple commands. calm Laboratory Tests Test 11/08/19 04:08 White Blood Count 7.6 K/UL (4.8-10.8) Red Blood Count 3.44 M/UL (4.70-6.10) L Hemoglobin 9.4 G/DL (14.2-18.0) L Hematocrit 28.8 % (42.0-52.0) L Mean Corpuscular Volume 84 FL (80-99) Mean Corpuscular Hemoglobin 27.4 PG (27.0-31.0) Mean Corpuscular Hemoglobin Concent 32.7 G/DL (32.0-36.0) Red Cell Distribution Width 15.8 % (11.6-14.8) H Platelet Count 339 K/UL (150-450) Mean Platelet Volume 4.5 FL (6.5-10.1) L Neutrophils (%) (Auto) 70.5 % (45.0-75.0) Lymphocytes (%) (Auto) 17.8 % (20.0-45.0) L Monocytes (%) (Auto) 8.1 % (1.0-10.0) Eosinophils (%) (Auto) 2.7 % (0.0-3.0) Basophils (%) (Auto) 0.9 % (0.0-2.0) Sodium Level 143 MMOL/L (136-145) Potassium Level 3.8 MMOL/L (3.5-5.1) Chloride Level 108 MMOL/L (98-107) H Carbon Dioxide Level 27 MMOL/L (21-32) Blood Urea Nitrogen 10 mg/dL (7-18) Creatinine 1.0 MG/DL (0.55-1.30) Estimat Glomerular Filtration Rate > 60 mL/min (>60) Glucose Level 87 MG/DL (74-106) Calcium Level 7.7 MG/DL (8.5-10.1) L Phosphorus Level 2.7 MG/DL (2.5-4.9) Magnesium Level 2.1 MG/DL (1.8-2.4) Total Bilirubin 0.2 MG/DL (0.2-1.0) Aspartate Amino Transf (AST/SGOT) 123 U/L (15-37) H Alanine Aminotransferase (ALT/SGPT) 89 U/L (12-78) H Alkaline Phosphatase 201 U/L (46-116) H Total Protein 6.3 G/DL (6.4-8.2) L Albumin 1.9 G/DL (3.4-5.0) L Globulin 4.4 g/dL Albumin/Globulin Ratio 0.4 (1.0-2.7) L Current Medications Medications (Trade) Dose Ordered Sig/Tasha Route PRN Reason Start Time Stop Time Status Last Admin Dose Admin Acetaminophen (Tylenol) 650 mg Q4H PRN ORAL fever 10/30/19 11:15 11/29/19 11:14 Amiodarone HCl (Cordarone) 100 mg DAILY PEG 11/04/19 09:00 01/29/20 08:59 11/08/19 08:17 Chlorhexidine Gluconate (Megan-Hex 2%) 1 applic DAILY@1999 TOPIC 11/01/19 20:00 01/30/20 19:59 11/07/19 20:37 Heparin Sodium (Porcine) (Heparin 5000 units/ml) 5,000 units EVERY 12 HOURS SUBQ 11/02/19 09:00 12/17/19 08:59 11/08/19 08:19 Levothyroxine Sodium (Synthroid) 50 mcg DAILY@0630 GT 10/31/19 06:30 11/30/19 06:29 11/08/19 05:30 Linezolid 300 ml @ 300 mls/hr Q12HR IVPB 11/02/19 13:30 11/15/19 23:59 11/07/19 21:26 Lorazepam (Ativan 2mg/ml 1ml) 2 mg Q2HR PRN IV For Anxiety 11/06/19 22:30 11/13/19 22:29 11/08/19 01:55 Norepinephrine Bitartrate 4 mg/ Dextrose 254 ml @ 0 mls/hr Q24H IV 10/30/19 22:00 11/29/19 21:59 11/01/19 23:54 Ondansetron HCl (Zofran) 4 mg Q6H PRN IVP Nausea & Vomiting 10/30/19 11:15 11/29/19 11:14 Pantoprazole (Protonix) 40 mg DAILY IVP 10/31/19 09:00 11/30/19 08:59 11/08/19 08:17 Polyethylene Glycol (Miralax) 17 gm DAILYPRN PRN ORAL Constipation 10/30/19 11:15 11/29/19 11:14 Quetiapine Fumarate (SEROqueL) 100 mg Q12HR GT 10/30/19 23:00 12/14/19 22:59 11/08/19 08:17 Yifan Rivera MD Nov 08, 2019 08:27
--- NOTE | 2019-11-08 09:10 | NUR ---
NURSE NOTES: Patient turned and repositioned, oral care given, medications given as prescribed; no adverse reactions. Endotracheal tube suctioning done, thick yellowish secretions noted; approximately 10ml. Patient tolerated well. Will continue to monitor.
--- NOTE | 2019-11-08 10:00 | Diagnostic Imaging Report ---
Indication: Dyspnea Technique: One view of the chest Comparison: 11/04/2019 Findings: Endotracheal tube tip projects at the annemarie. Bilateral interstitial and airspace disease persists overall is slightly stable but there appears to be slightly improved airspace consolidation in the left mid and lower lung. There is probably a small amount of pleural fluid bilaterally. The heart is borderline enlarged. Right chest dual-lumen port catheter is again demonstrated Impression: Low position of endotracheal tube, at the annemarie. Slight retraction recommended. This findings phoned to patient's nurse at the time of interpretation Extensive diffuse bilateral interstitial and airspace infiltrates versus edema, with evidence of some improvement of airspace consolidation in the left mid and lower lung over 4 days Other findings as noted
--- NOTE | 2019-11-08 10:14 | NUR ---
RADIOLOGY DEPT., CHEST X-RAY DONE-P.DYE
--- NOTE | 2019-11-08 11:04 | Pulmonolgy Critical Care Note ---
Critical Care - Asmt/Plan Problems: (1) Acute respiratory failure (2) Septic shock (3) Enterococcal bacteremia (4) Nosocomial pneumonia (5) COPD (chronic obstructive pulmonary disease) (6) Suspected 2019-nCoV infection (7) Atrial fibrillation (8) Severe anemia (9) Hypothyroidism (10) Psychosis Respiratory: monitor respiratory rate, adjust FIO2, CXR Cardiac: continue to monitor HR/BP Renal: F/U I&O, keep IV fluid Infectious Disease: check cultures Gastrointestinal: continue feedings/current rate Endocrine: check TSH, check HgA1C Hematologic: monitor H/H Time Spent (Minutes): 40 Notes Reviewed: tailer off, renal Discussed with: complex case managersoutheast 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 - Objective Last 24 Hour Vital Signs Date Time Temp Pulse Resp B/P (MAP) Pulse Ox O2 Delivery O2 Flow Rate FiO2 11/08/19 10:00 76 16 105/64 (78) 100 11/08/19 10:00 76 16 105/64 (78) 100 11/08/19 09:00 70 16 108/56 (73) 99 11/08/19 08:51 75 16 40 11/08/19 08:00 Mechanical Ventilator 11/08/19 08:00 98.5 64 16 91/55 (67) 99 11/08/19 08:00 40 11/08/19 07:54 65 11/08/19 07:00 64 16 98/54 (69) 97 11/08/19 06:40 64 16 40 11/08/19 06:06 61 16 11/08/19 06:00 60 16 102/53 (69) 99 11/08/19 05:23 58 16 40 11/08/19 05:00 67 16 125/64 (84) 99 11/08/19 04:00 Mechanical Ventilator 11/08/19 04:00 98.5 63 16 99/56 (70) 100 11/08/19 04:00 64 11/08/19 04:00 40 11/08/19 03:21 79 17 40 11/08/19 03:19 79 17 40 11/08/19 03:00 64 16 105/60 (75) 100 11/08/19 02:00 76 16 111/94 (100) 99 11/08/19 01:26 84 18 40 11/08/19 01:00 81 17 139/70 (93) 98 11/08/19 00:32 Mechanical Ventilator 11/08/19 00:00 98.1 77 18 137/90 (106) 96 11/07/19 23:19 76 17 40 11/07/19 23:00 79 19 143/93 (110) 100 11/07/19 22:00 76 18 144/99 (114) 100 11/07/19 22:00 137/90 11/07/19 21:23 77 16 40 11/07/19 21:00 76 17 148/55 (86) 99 11/07/19 20:00 Mechanical Ventilator 11/07/19 20:00 98.6 76 17 143/79 (100) 99 11/07/19 20:00 79 11/07/19 20:00 40 11/07/19 19:46 78 16 40 11/07/19 19:00 73 16 135/88 (104) 100 11/07/19 18:00 75 16 134/72 (92) 100 11/07/19 17:19 78 17 40 11/07/19 17:00 78 17 136/88 (104) 98 11/07/19 16:00 40 11/07/19 16:00 81 11/07/19 16:00 Mechanical Ventilator 11/07/19 16:00 98.4 82 16 132/74 (93) 100 11/07/19 15:00 78 16 117/79 (92) 100 11/07/19 14:49 85 18 40 11/07/19 14:00 85 16 143/82 (102) 91 11/07/19 13:00 83 17 156/56 (89) 99 11/07/19 12:43 80 18 40 11/07/19 12:00 80 11/07/19 12:00 40 11/07/19 12:00 Mechanical Ventilator 11/07/19 12:00 98.2 81 17 147/72 (97) 100 11/07/19 11:28 81 16 40 Status: awake Condition: critical HEENT: atraumatic, normocephalic Lungs: clear Heart: HR/BP stable, regular Abdomen: soft, active bowel sounds Extremities: no C/C/E, edema Critical Care - Subjective ROS Limited/Unobtainable: Yes Condition: critical EKG Rhythm: Sinus Rhythm FI02: 40 Vent Support Breath Rate: 16 Vent Support Mode: AC Vent Tidal Volume: 600 Sputum Amount: Scant PEEP: 0.0 PIP: 36 Tube Feeding Amount: 50 I&O: Intake and Output 11/07/19 11/08/19 19:00 07:00 Intake Total 660 ml 410 ml Output Total 1675 ml 1375 ml Balance -1015 ml -965 ml Intake Free Water 30 ml IV Total 300 ml Tube Feeding 330 ml 410 ml Output Urine Total 1675 ml 1375 ml # Bowel Movements 3 1 ET-Tube: 7.5 ET Position: 23 Labs: Laboratory Tests Test 11/08/19 04:08 11/08/19 08:51 White Blood Count 7.6 K/UL (4.8-10.8) Red Blood Count 3.44 M/UL (4.70-6.10) L Hemoglobin 9.4 G/DL (14.2-18.0) L Hematocrit 28.8 % (42.0-52.0) L Mean Corpuscular Volume 84 FL (80-99) Mean Corpuscular Hemoglobin 27.4 PG (27.0-31.0) Mean Corpuscular Hemoglobin Concent 32.7 G/DL (32.0-36.0) Red Cell Distribution Width 15.8 % (11.6-14.8) H Platelet Count 339 K/UL (150-450) Mean Platelet Volume 4.5 FL (6.5-10.1) L Neutrophils (%) (Auto) 70.5 % (45.0-75.0) Lymphocytes (%) (Auto) 17.8 % (20.0-45.0) L Monocytes (%) (Auto) 8.1 % (1.0-10.0) Eosinophils (%) (Auto) 2.7 % (0.0-3.0) Basophils (%) (Auto) 0.9 % (0.0-2.0) Sodium Level 143 MMOL/L (136-145) Potassium Level 3.8 MMOL/L (3.5-5.1) Chloride Level 108 MMOL/L (98-107) H Carbon Dioxide Level 27 MMOL/L (21-32) Blood Urea Nitrogen 10 mg/dL (7-18) Creatinine 1.0 MG/DL (0.55-1.30) Estimat Glomerular Filtration Rate > 60 mL/min (>60) Glucose Level 87 MG/DL (74-106) Calcium Level 7.7 MG/DL (8.5-10.1) L Phosphorus Level 2.7 MG/DL (2.5-4.9) Magnesium Level 2.1 MG/DL (1.8-2.4) Total Bilirubin 0.2 MG/DL (0.2-1.0) Aspartate Amino Transf (AST/SGOT) 123 U/L (15-37) H Alanine Aminotransferase (ALT/SGPT) 89 U/L (12-78) H Alkaline Phosphatase 201 U/L (46-116) H Total Protein 6.3 G/DL (6.4-8.2) L Albumin 1.9 G/DL (3.4-5.0) L Globulin 4.4 g/dL Albumin/Globulin Ratio 0.4 (1.0-2.7) L Arterial Blood pH 7.452 (7.350-7.450) Arterial Blood Partial Pressure CO2 35.3 mmHg (35.0-45.0) Arterial Blood Partial Pressure O2 161.1 mmHg (75.0-100.0) H Arterial Blood HCO3 24.1 mmol/L (22.0-26.0) Arterial Blood Oxygen Saturation 98.6 % (95-100) Arterial Blood Base Excess 0.4 (-2-2) Ty Test Positive Jackie Kaiser MD Nov 08, 2019 11:04
--- NOTE | 2019-11-08 11:41 | NUR ---
CASE MANAGEMENT: REVIEW 11/08/19 SI: RESP FAILURE . PNA . INFLUENZA . VRE (+) 98.5 64 16 91/51 99% MECH VENT FIO2 40 H/H 9.4/28.8 CL-108 CA+7.7 AST/ALT 123/89 ALKP 201 IS: IV LEVOPHED IV [id number] (MED HELD AT THIS TIME-ELEVATED BP) AMIODARONE GT QD IV ZYVOX BID IV PROTONIX QD SEROQUEL GT BID HEPARIN SQ BID SYNTHROID GT QAM AYANA-HEX 2% TP QD GTUBE FEEDING DROPLET ISOLATION CHEST X-RAY- Extensive diffuse bilateral interstitial and airspace infiltrates versus edema ICU STATUS DCP: [facility]: NON-VIOLENT RESTRAINTS MONITORING MONITOR RESPIRATORY RATE ADJUST FiO2 CXR THIS AM
--- NOTE | 2019-11-08 12:57 | NUR ---
NURSE NOTES: Patient turned and repositioned, oral care given, Endotracheal suction given. Patient tolerated well. Will continue to monitor.
--- NOTE | 2019-11-08 14:27 | NUR ---
RADIOLOGY DEPT., CHEST X-RAY PERFORMED FOR REPOSITIONING OF ETT PER RADIOLOGISTJANICE
--- NOTE | 2019-11-08 14:32 | Diagnostic Imaging Report ---
Indication: Status post repositioning of endotracheal tube Technique: One view of the chest Comparison: 5 hours earlier Findings: Interim retraction of previously malpositioned endotracheal tube, tip now projecting in satisfactory position approximately 3 cm above the annemarie. Extensive bilateral interstitial and airspace parenchymal disease, right chest port catheter are again demonstrated. Impression: Improved and now satisfactory position of previously malpositioned endotracheal tube
--- NOTE | 2019-11-08 16:33 | Cardiology Progress Note ---
Assessment/Plan Assessment/Plan 1. Paroxysmal episodes of atrial fibrillation. 2. Respiratory failure. 3. Influenza A positive. covid neg 4. Malignant neoplasm of the larynx. 5. History of hypertension. 6. History of hyperlipidemia. 7. History of hypothyroidism. 8. Respiratory failure on a mechanical ventilator. 9. Diabetes mellitus type 2. 10. Coagulopathy. 11. Abnormal liver function tests. 12. Hypotension likely from sepsis and shock 13. VRE bacteremia influenza positive off pressor anemic but stable wbc nl covid 19 neg final echo noted cxr reviewed tele reviewed sinus no afib documented wean when feasible remains afebrile wbc stabel Subjective ROS Limited/Unobtainable: Yes Subjective on vent Objective Last 24 Hour Vital Signs Date Time Temp Pulse Resp B/P (MAP) Pulse Ox O2 Delivery O2 Flow Rate FiO2 11/08/19 15:00 61 16 112/67 (82) 100 11/08/19 14:00 73 16 110/66 (81) 100 11/08/19 13:00 72 17 110/61 (77) 95 11/08/19 12:32 74 17 40 11/08/19 12:00 98.1 80 18 115/82 (93) 96 11/08/19 12:00 40 11/08/19 12:00 Mechanical Ventilator 11/08/19 11:31 79 11/08/19 11:00 77 18 97/53 (68) 99 11/08/19 10:41 74 16 40 11/08/19 10:00 76 16 105/64 (78) 100 11/08/19 10:00 76 16 105/64 (78) 100 11/08/19 09:00 70 16 108/56 (73) 99 11/08/19 08:51 75 16 40 11/08/19 08:00 Mechanical Ventilator 11/08/19 08:00 98.5 64 16 91/55 (67) 99 11/08/19 08:00 40 11/08/19 07:54 65 11/08/19 07:00 64 16 98/54 (69) 97 11/08/19 06:40 64 16 40 11/08/19 06:06 61 16 11/08/19 06:00 60 16 102/53 (69) 99 11/08/19 05:23 58 16 40 11/08/19 05:00 67 16 125/64 (84) 99 11/08/19 04:00 Mechanical Ventilator 11/08/19 04:00 98.5 63 16 99/56 (70) 100 11/08/19 04:00 64 11/08/19 04:00 40 11/08/19 03:21 79 17 40 11/08/19 03:19 79 17 40 11/08/19 03:00 64 16 105/60 (75) 100 11/08/19 02:00 76 16 111/94 (100) 99 11/08/19 01:26 84 18 40 11/08/19 01:00 81 17 139/70 (93) 98 11/08/19 00:32 Mechanical Ventilator 11/08/19 00:00 98.1 77 18 137/90 (106) 96 11/07/19 23:19 76 17 40 11/07/19 23:00 79 19 143/93 (110) 100 11/07/19 22:00 76 18 144/99 (114) 100 11/07/19 22:00 137/90 11/07/19 21:23 77 16 40 11/07/19 21:00 76 17 148/55 (86) 99 11/07/19 20:00 Mechanical Ventilator 11/07/19 20:00 98.6 76 17 143/79 (100) 99 11/07/19 20:00 79 11/07/19 20:00 40 11/07/19 19:46 78 16 40 11/07/19 19:00 73 16 135/88 (104) 100 11/07/19 18:00 75 16 134/72 (92) 100 11/07/19 17:19 78 17 40 11/07/19 17:00 78 17 136/88 (104) 98 General Appearance: no apparent distress, on vent, patient on isolation, isolation precautions Intake and Output 11/07/19 11/08/19 19:00 07:00 Intake Total 660 ml 410 ml Output Total 1675 ml 1375 ml Balance -1015 ml -965 ml Intake Free Water 30 ml IV Total 300 ml Tube Feeding 330 ml 410 ml Output Urine Total 1675 ml 1375 ml # Bowel Movements 3 1 Laboratory Tests Test 11/08/19 04:08 11/08/19 08:51 White Blood Count 7.6 K/UL (4.8-10.8) Red Blood Count 3.44 M/UL (4.70-6.10) L Hemoglobin 9.4 G/DL (14.2-18.0) L Hematocrit 28.8 % (42.0-52.0) L Mean Corpuscular Volume 84 FL (80-99) Mean Corpuscular Hemoglobin 27.4 PG (27.0-31.0) Mean Corpuscular Hemoglobin Concent 32.7 G/DL (32.0-36.0) Red Cell Distribution Width 15.8 % (11.6-14.8) H Platelet Count 339 K/UL (150-450) Mean Platelet Volume 4.5 FL (6.5-10.1) L Neutrophils (%) (Auto) 70.5 % (45.0-75.0) Lymphocytes (%) (Auto) 17.8 % (20.0-45.0) L Monocytes (%) (Auto) 8.1 % (1.0-10.0) Eosinophils (%) (Auto) 2.7 % (0.0-3.0) Basophils (%) (Auto) 0.9 % (0.0-2.0) Sodium Level 143 MMOL/L (136-145) Potassium Level 3.8 MMOL/L (3.5-5.1) Chloride Level 108 MMOL/L (98-107) H Carbon Dioxide Level 27 MMOL/L (21-32) Blood Urea Nitrogen 10 mg/dL (7-18) Creatinine 1.0 MG/DL (0.55-1.30) Estimat Glomerular Filtration Rate > 60 mL/min (>60) Glucose Level 87 MG/DL (74-106) Calcium Level 7.7 MG/DL (8.5-10.1) L Phosphorus Level 2.7 MG/DL (2.5-4.9) Magnesium Level 2.1 MG/DL (1.8-2.4) Total Bilirubin 0.2 MG/DL (0.2-1.0) Aspartate Amino Transf (AST/SGOT) 123 U/L (15-37) H Alanine Aminotransferase (ALT/SGPT) 89 U/L (12-78) H Alkaline Phosphatase 201 U/L (46-116) H Total Protein 6.3 G/DL (6.4-8.2) L Albumin 1.9 G/DL (3.4-5.0) L Globulin 4.4 g/dL Albumin/Globulin Ratio 0.4 (1.0-2.7) L Arterial Blood pH 7.452 (7.350-7.450) Arterial Blood Partial Pressure CO2 35.3 mmHg (35.0-45.0) Arterial Blood Partial Pressure O2 161.1 mmHg (75.0-100.0) H Arterial Blood HCO3 24.1 mmol/L (22.0-26.0) Arterial Blood Oxygen Saturation 98.6 % (95-100) Arterial Blood Base Excess 0.4 (-2-2) Ty Test Positive Carlos Slade MD Nov 08, 2019 16:33
--- NOTE | 2019-11-08 17:45 | NUR ---
NURSE NOTES: Bed bath given to patient, bowel movement noted, beddings changed. Patient showing no signs of acute distress. Will continue to monitor.
--- NOTE | 2019-11-08 19:27 | NUR ---
HAND-OFF: Report given to Alex ROBLEDO.
--- NOTE | 2019-11-08 19:28 | NUR ---
NURSE NOTES: Received patient from VENKAT Doss. Patient is aaox2 with confusion, vss, with no acute distress. Patient on wall monitor and RT at bedside. Patient is on ET at 7.5cm and 23cm at the lips, AC 16, TV 600, Fio2 40% with orders for 100%, and PEEP of 0. Tube feeding running at gaol. No skin issues, IV right femoral with dressing change 11/05/19. Bed at its lowest position, call light in reach and x3 bed rails are up. Will continue to monitor.
[2019-11-08] MEDS: Dyna-Hex 2% Top Sol 2oz TOPIC SCH (20:32)
--- NOTE | 2019-11-08 21:15 | NUR ---
NURSE NOTES: received patient from disha francisco. patient ao2 to name and place with episodes of confusion; follows commands and presents with purposeful movement. patient resting in bed with no acute distress. pt attached to monitor; vitals stable to baseline. ETT tube noted at 7.5 cm and 23cm at lipline; ac 16; tv 600; fio2 40%; peep 0. G tube free flushed 100ml and patent; feeding running at goal of 50ml/hr. aspiration precautions observed; head of bed raised >30 degree per protocol. logan intact and patent; draining well to gravity. right femoral TLC noted; free of signs of infection or debris; flushed and patent. iv 22g on right hand noted; infiltrated; d/c iv. restraints in place, no skin break down or pallor noted; pulses palpable distal to site. droplect precautions observed. all safety measures met; bed locked at lowest position; side rails raised x 3; bed alarm on zone 2; call light with in reach.
--- NOTE | 2019-11-08 21:16 | NUR ---
HAND-OFF: Report given to VENKAT Garcia. Addendum: 11/08/19 at 2141 by Alex Castelan RN HAND-OFF: Report given to Nimesh Humphries RN.
--- NOTE | 2019-11-08 22:41 | Internal Med Progress Note ---
Subjective Physician Name Danny Stark Attending Physician Danny Stark MD Current Medications Medications (Trade) Dose Ordered Sig/Tasha Route PRN Reason Start Time Stop Time Status Last Admin Dose Admin Acetaminophen (Tylenol) 650 mg Q4H PRN ORAL fever 10/30/19 11:15 11/29/19 11:14 Amiodarone HCl (Cordarone) 100 mg DAILY PEG 11/04/19 09:00 01/29/20 08:59 11/08/19 08:17 Chlorhexidine Gluconate (Megan-Hex 2%) 1 applic DAILY@1999 TOPIC 11/01/19 20:00 01/30/20 19:59 11/08/19 20:32 Heparin Sodium (Porcine) (Heparin 5000 units/ml) 5,000 units EVERY 12 HOURS SUBQ 11/02/19 09:00 12/17/19 08:59 11/08/19 20:34 Levothyroxine Sodium (Synthroid) 50 mcg DAILY@30 GT 10/31/19 06:30 11/30/19 06:29 11/08/19 05:30 Linezolid 300 ml @ 300 mls/hr Q12HR IVPB 11/02/19 13:30 11/15/19 23:59 11/08/19 20:33 Lorazepam (Ativan 2mg/ml 1ml) 2 mg Q2HR PRN IV For Anxiety 11/06/19 22:30 11/13/19 22:29 11/08/19 20:38 Norepinephrine Bitartrate 4 mg/ Dextrose 254 ml @ 0 mls/hr Q24H IV 10/30/19 22:00 11/29/19 21:59 11/01/19 23:54 Ondansetron HCl (Zofran) 4 mg Q6H PRN IVP Nausea & Vomiting 10/30/19 11:15 11/29/19 11:14 Pantoprazole (Protonix) 40 mg DAILY IVP 10/31/19 09:00 11/30/19 08:59 11/08/19 08:17 Polyethylene Glycol (Miralax) 17 gm DAILYPRN PRN ORAL Constipation 10/30/19 11:15 11/29/19 11:14 Quetiapine Fumarate (SEROqueL) 100 mg Q12HR GT 10/30/19 23:00 5/16/20 22:59 11/08/19 20:33 Allergies: Coded Allergies: No Known Allergies (Unverified , 10/30/19) Subjective intubated, awake, responsive, on vent in ICU. Objective Last Vital Signs Date Time Temp Pulse Resp B/P (MAP) Pulse Ox O2 Delivery O2 Flow Rate FiO2 11/08/19 22:00 90/55 11/08/19 21:00 98.2 69 16 96 11/08/19 20:00 40 11/08/19 20:00 Mechanical Ventilator 10/30/19 22:00 15.0 Laboratory Tests Test 11/08/19 04:08 11/08/19 08:51 White Blood Count 7.6 K/UL (4.8-10.8) Red Blood Count 3.44 M/UL (4.70-6.10) L Hemoglobin 9.4 G/DL (14.2-18.0) L Hematocrit 28.8 % (42.0-52.0) L Mean Corpuscular Volume 84 FL (80-99) Mean Corpuscular Hemoglobin 27.4 PG (27.0-31.0) Mean Corpuscular Hemoglobin Concent 32.7 G/DL (32.0-36.0) Red Cell Distribution Width 15.8 % (11.6-14.8) H Platelet Count 339 K/UL (150-450) Mean Platelet Volume 4.5 FL (6.5-10.1) L Neutrophils (%) (Auto) 70.5 % (45.0-75.0) Lymphocytes (%) (Auto) 17.8 % (20.0-45.0) L Monocytes (%) (Auto) 8.1 % (1.0-10.0) Eosinophils (%) (Auto) 2.7 % (0.0-3.0) Basophils (%) (Auto) 0.9 % (0.0-2.0) Sodium Level 143 MMOL/L (136-145) Potassium Level 3.8 MMOL/L (3.5-5.1) Chloride Level 108 MMOL/L (98-107) H Carbon Dioxide Level 27 MMOL/L (21-32) Blood Urea Nitrogen 10 mg/dL (7-18) Creatinine 1.0 MG/DL (0.55-1.30) Estimat Glomerular Filtration Rate > 60 mL/min (>60) Glucose Level 87 MG/DL (74-106) Calcium Level 7.7 MG/DL (8.5-10.1) L Phosphorus Level 2.7 MG/DL (2.5-4.9) Magnesium Level 2.1 MG/DL (1.8-2.4) Total Bilirubin 0.2 MG/DL (0.2-1.0) Aspartate Amino Transf (AST/SGOT) 123 U/L (15-37) H Alanine Aminotransferase (ALT/SGPT) 89 U/L (12-78) H Alkaline Phosphatase 201 U/L (46-116) H Total Protein 6.3 G/DL (6.4-8.2) L Albumin 1.9 G/DL (3.4-5.0) L Globulin 4.4 g/dL Albumin/Globulin Ratio 0.4 (1.0-2.7) L Arterial Blood pH 7.452 (7.350-7.450) Arterial Blood Partial Pressure CO2 35.3 mmHg (35.0-45.0) Arterial Blood Partial Pressure O2 161.1 mmHg (75.0-100.0) H Arterial Blood HCO3 24.1 mmol/L (22.0-26.0) Arterial Blood Oxygen Saturation 98.6 % (95-100) Arterial Blood Base Excess 0.4 (-2-2) Ty Test Positive Intake and Output 11/07/19 11/08/19 19:00 07:00 Intake Total 660 ml 410 ml Output Total 1675 ml 1375 ml Balance -1015 ml -965 ml Intake Free Water 30 ml IV Total 300 ml Tube Feeding 330 ml 410 ml Output Urine Total 1675 ml 1375 ml # Bowel Movements 3 1 Objective General: intubated, awake, responsive. HEENT: NCAT, sclera anicteric, PERRL, EOMI, ET tube. Neck: Supple, no significant jugular venous distention, Lungs: Mechanical breath sound, decrease air at bases, no Wheeze or Rales. Heart: Regular rate and rhythm, normal S1/S2, no murmurs. Abdomen: soft, nontender, nondistended. Normoactive bowel sound, + PEG, Extremities: No Cyanosis , clubbing or edema. Neuro: A&O x 2, Able to move all extremities Skin: warm, no rash. Assessment/Plan Status Narrative 1. Acute Hypoxemic Respiratory failure. 2. Pneumonia. 3. Esophageal cancer. 4. Diabetes type 2. 5. Hypertension. 6. Hypercholesterolemia. 7. Atrial fibrillation. 8. Hypothyroidism. 9. Dysphagia. 10. History of prostate cancer. 11. Influenza A positive. 12. Septic shock. 13. Acute UTI. 14. VRE Bacteremia. TREATMENT: 1. Pneumonia/respiratory failure. A Pulmonary consultation has been obtained with Dr. Jackie Kaiser. An Infectious Disease consultation has been obtained with Dr. Yifan Rivera. We will follow recommendations of Infectious Disease and Pulmonary. A sputum culture is pending. 2. Esophageal cancer. 3. Diabetes type 2. A NovoLog sliding scale has been instituted. 4. Hypertension. The patient is currently hypotensive and probable sepsis. 5. Hypercholesterolemia. Continue atorvastatin as above. 6. Atrial fibrillation. Continue amiodarone as above. 7. Hypothyroidism. Continue levothyroxine as above. 8. Dysphagia, status post PEG placement. 9. History of prostate cancer. Tolerated Tube feeding @ 50 cc/hr COVID 19 test negative, Abx: Vanco IV, Ertapenem IV, Amikacin DVT Prophylaxis: Heparin SQ Abx: Linezolid #7/14 F/U with labs and cultures. Danny Stark MD Nov 08, 2019 22:41
[2019-11-09] VITALS (24 sets, daily range): BP systolic 80–110; BP diastolic 48–92
--- NOTE | 2019-11-09 | NUR ---
NURSE NOTES: patient asleep with no acute distress. vitals stable to baseline. pt tolerating vent setting; setting remain unchanged. patient arousable to name and states understanding of d/c restraint criteria; released restraints. patient free of incident. will continue to monitor closely.
--- NOTE | 2019-11-09 02:00 | NUR ---
NURSE NOTES: PATIENT NOTED ATTEMPTING TO REMOVE DEVICE. NONVIOLENT RESTRAINT ORDER RECEIVED; NOTED AND CARRIED OUT. PATIENT EXTREMITIES FREE FROM INJURY OR SKIN BREAKDOWN. PATIENT RESTING IN BED WITH NO ACUTE DISTRESS. VITALS STABLE. SAFETY MEASURES MET. WILL CONTINUE TO MONITOR.
--- NOTE | 2019-11-09 04:00 | NUR ---
NURSE NOTES: ett tube pulled out 2 cm to 21cm at lipline as ordered. xray obtained. patient presents with bowel movement; soft brown stool. provided bed bath; changed gown and all linens. elevated bilateral upper and lower extremities with pillow. right femoral tlc remains free from signs of infection; changed central line dressing without incident. jade am labs; sent down to lab.
--- NOTE | 2019-11-09 05:30 | NUR ---
NURSE NOTES: held feeding 1 hour prior to administration of synthroid as ordered. free flush 100ml.
--- NOTE | 2019-11-09 06:00 | NUR ---
NURSE NOTES: attempted to wean pt off 40% fio2 to 30% with rt at bedside; pt unable to tolerate; desat to mid 80s. resumed fio2 40%. repositioned patient for comfort. provided oral care. patient resting in bed with no acute distress. vitals stable to baseline.
--- NOTE | 2019-11-09 06:30 | NUR ---
NURSE NOTES: medicated patient with synthroid through gtube; tolerated well. continued feeding at goal of 50 ml / hour as prescribed. aspirations precaution observed; head of bed raised per protocol. all safety measures met.
[2019-11-09 06:46] LABS: BASOPHILS % (AUTO) 0.6 % (0.0-2.0); EOSINOPHILS % (AUTO) 2.6 % (0.0-3.0); HEMATOCRIT 28.9 % (42.0-52.0); HEMOGLOBIN 9.3 G/DL (14.2-18.0); LYMPHOCYTES % (AUTO) 16.7 % (20.0-45.0); MEAN CORPUSCULAR VOLUME 84 FL (80-99); MONOCYTES % (AUTO) 5.6 % (1.0-10.0); NEUTROPHILS % (AUTO) 74.6 % (45.0-75.0); PLATELET COUNT 348 K/UL (150-450); RED BLOOD COUNT 3.42 M/UL (4.70-6.10); WHITE BLOOD COUNT 10.1 K/UL (4.8-10.8)
[2019-11-09 07:25] LABS: ALANINE AMINOTRANSFERASE 97 U/L (12-78); ALBUMIN/GLOBULIN RATIO 0.4 (1.0-2.7); ALKALINE PHOSPHATASE 240 U/L (46-116); ANION GAP 12 mmol/L (5-15); ASPARTATE AMINO TRANSFERASE 137 U/L (15-37); BILIRUBIN,TOTAL 0.2 MG/DL (0.2-1.0); BLOOD UREA NITROGEN 15 mg/dL (7-18); CALCIUM 8.1 MG/DL (8.5-10.1); CARBON DIOXIDE 23 MMOL/L (21-32); CHLORIDE 106 MMOL/L (98-107); CREATININE 0.9 MG/DL (0.55-1.30); PHOSPHORUS 2.5 MG/DL (2.5-4.9); SODIUM 141 MMOL/L (136-145)
--- NOTE | 2019-11-09 07:30 | NUR ---
HAND-OFF: Report given to candis gauthier. patient in stable condition. plan of care endorsed.
--- NOTE | 2019-11-09 08:00 | NUR ---
NURSE NOTES: Received change of shift report from Nimesh Humphries RN. Pt is awake, disoriented, restless, orally intubated, and attempting to pull out ET tube. Bilateral soft wrist restraints are in place to prevent self-extubation. ETT 7.5 at 21cm left lipline, with vent settings AC16, VT600, FIO2 40%, Peep 0, at 100% O2Sat. NSR on hospital monitor, HR 85. Central line present, right femoral TLC, saline locked, patent/intact. Temp 98.3F axillary. GT with feeding Glucerna 1.5 at goal rate of 50ml/hour. No noted residual. Abdomen is round, soft, nontender to touch with active bowel sounds. Patel catheter is present, draining cloudy, yellow urine. Skin is intact, with scrotal redness. Pt is on P200 pressure releasing mattress. HOB at 30 degrees, bed locked, in lowest position, and three side rails up. Will continue to monitor pt and follow plan of care per MD orders and protocol.
--- NOTE | 2019-11-09 08:42 | Pulmonolgy Critical Care Note ---
Critical Care - Asmt/Plan Assessment/Plan: ASSESSMENT Acute respiratory failure requiring intubation Septic shock Sepsis with VRE bacteremia Pneumonia Influenza A Acute kidney injury -resolved Atrial fibrillation COPD Esophageal cancer History of prostate cancer Anemia Transaminitis PLAN of CARE ICU vent support pulmonary toilet fup with ABG and CXR, wean as tolerated off pressors Echo with pEF 55% , no evidence of vegetation influenza screen +influenza A , s/p Rx with Tamiflu COVID by PCR NGT BCX + VRE , repeated BCX NGT will need 2 wkx of Zyvox as per ID IVF JESSICA resolved monitor renal parameters, lytes , correct electrolytes as needed , avoid nephrotoxic monitor H&H with goal to keep hemoglobin above 7 stool OB positive trend LFT, consider abdominal US case discussed and evaluated by supervising physician Critical Care - Objective Last 24 Hour Vital Signs Date Time Temp Pulse Resp B/P (MAP) Pulse Ox O2 Delivery O2 Flow Rate FiO2 11/09/19 07:29 87 17 40 11/09/19 07:00 87 16 102/58 (73) 93 11/09/19 06:30 78 16 11/09/19 06:00 97.6 79 16 96/59 (71) 95 11/09/19 05:49 72 17 40 11/09/19 05:00 77 19 103/56 (72) 97 11/09/19 04:00 Mechanical Ventilator 11/09/19 04:00 74 19 90/56 (67) 95 11/09/19 04:00 77 11/09/19 04:00 40 11/09/19 03:28 70 17 40 11/09/19 03:00 78 16 96/55 (69) 95 11/09/19 02:00 97.9 68 16 98/56 (70) 96 11/09/19 01:00 68 16 102/54 (70) 95 11/09/19 00:00 69 16 93/51 (65) 98 11/09/19 00:00 69 11/09/19 00:00 Mechanical Ventilator 11/08/19 23:00 62 16 112/54 (73) 99 11/08/19 22:53 64 16 40 11/08/19 22:00 98.0 65 16 90/51 (64) 98 11/08/19 22:00 90/55 11/08/19 21:00 98.2 69 16 92/55 (67) 96 11/08/19 20:00 76 17 115/66 (82) 93 11/08/19 20:00 80 11/08/19 20:00 40 11/08/19 20:00 Mechanical Ventilator 11/08/19 19:25 71 17 40 11/08/19 19:00 78 25 117/58 (77) 96 11/08/19 18:00 98.0 75 17 172/63 (99) 97 11/08/19 17:00 67 16 127/74 (91) 99 11/08/19 16:50 67 16 40 11/08/19 16:00 97.1 57 16 113/71 (85) 100 11/08/19 16:00 Mechanical Ventilator 11/08/19 16:00 40 11/08/19 15:10 62 16 40 11/08/19 15:03 61 11/08/19 15:00 61 16 112/67 (82) 100 11/08/19 14:00 73 16 110/66 (81) 100 11/08/19 13:00 72 17 110/61 (77) 95 11/08/19 12:32 74 17 40 11/08/19 12:00 98.1 80 18 115/82 (93) 96 11/08/19 12:00 40 11/08/19 12:00 Mechanical Ventilator 11/08/19 11:31 79 11/08/19 11:00 77 18 97/53 (68) 99 11/08/19 10:41 74 16 40 11/08/19 10:00 76 16 105/64 (78) 100 11/08/19 10:00 76 16 105/64 (78) 100 11/08/19 09:00 70 16 108/56 (73) 99 11/08/19 08:51 75 16 40 Status: awake Condition: critical HEENT: atraumatic, normocephalic, other - OP with ET in palce, intact Lungs: other - oveall clear Heart: HR/BP stable Abdomen: soft, non-tender Extremities: edema Critical Care - Subjective Interval Events: reaming intubated no fevers, no leukocytosis Condition: critical EKG Rhythm: Sinus Rhythm FI02: 40 Vent Support Breath Rate: 16 Vent Support Mode: AC Vent Tidal Volume: 600 Sputum Amount: Large PEEP: 0.0 PIP: 45 Tube Feeding Amount: 50 I&O: Intake and Output 11/08/19 11/09/19 19:00 07:00 Intake Total 800 ml 1000 ml Output Total 990 ml 550 ml Balance -190 ml 450 ml Intake Free Water 200 ml IV Total 300 ml 300 ml Tube Feeding 500 ml 500 ml Output Urine Total 990 ml 550 ml # Bowel Movements 1 1 CXR: CXR 11/07 Interim retraction of previously malpositioned endotracheal tube, tip now projecting in satisfactory position approximately 3 cm above the annemarie. Extensive bilateral interstitial and airspace parenchymal disease, right chest port catheter are again demonstrated. ET-Tube: 7.5 ET Position: 21 Ana Flores NETTING WEAVER Nov 09, 2019 08:42
[2019-11-09] MEDS: Pantoprazole Inj IVP SCH (09:27)
[2019-11-09] MEDS: Amiodarone 200mg tab PEG SCH (09:27)
[2019-11-09] MEDS: Heparin 5000 units/ml inj SUBQ SCH ×2 (09:29→21:05)
--- NOTE | 2019-11-09 10:00 | NUR ---
NURSE NOTES: AM meds were administered. Oral care was done. RT is at bedside, pt was suctioned, with output of large, thick, tannish green mucus/secretions. Pt was repositioned. VS remain stable.
--- NOTE | 2019-11-09 11:00 | NUR ---
NURSE NOTES: Pt was seen by Ana Flores NP. Orders noted for ABGs, chest xray, and CBC/CMP for tomorrow AM.
--- NOTE | 2019-11-09 13:00 | NUR ---
NURSE NOTES: Pt has liquid brown stool. Rectal tube was inserted per MD order. Pt was cleaned, gown/bed linens were changed. Pt was repositioned. Oral care was done. VS remain stable. Pt is afebrile. Temp 98.1F axillary.
--- NOTE | 2019-11-09 13:25 | Internal Med Progress Note ---
Subjective Date of Service: Nov 09, 2019 Physician Name KarolinaGallito Attending Physician Danny Stark MD Current Medications Medications (Trade) Dose Ordered Sig/Tasha Route PRN Reason Start Time Stop Time Status Last Admin Dose Admin Acetaminophen (Tylenol) 650 mg Q4H PRN ORAL fever 10/30/19 11:15 11/29/19 11:14 Amiodarone HCl (Cordarone) 100 mg DAILY PEG 11/04/19 09:00 01/29/20 08:59 11/09/19 09:27 Chlorhexidine Gluconate (Megan-Hex 2%) 1 applic DAILY@1999 TOPIC 11/01/19 20:00 01/30/20 19:59 11/08/19 20:32 Heparin Sodium (Porcine) (Heparin 5000 units/ml) 5,000 units EVERY 12 HOURS SUBQ 11/02/19 09:00 12/17/19 08:59 11/09/19 09:29 Levothyroxine Sodium (Synthroid) 50 mcg DAILY@06 GT 10/31/19 06:30 11/30/19 06:29 11/09/19 06:30 Linezolid 300 ml @ 300 mls/hr Q12HR IVPB 11/02/19 13:30 11/15/19 23:59 11/09/19 09:27 Lorazepam (Ativan 2mg/ml 1ml) 2 mg Q2HR PRN IV For Anxiety 11/06/19 22:30 11/13/19 22:29 11/08/19 20:38 Norepinephrine Bitartrate 4 mg/ Dextrose 254 ml @ 0 mls/hr Q24H IV 10/30/19 22:00 11/29/19 21:59 11/01/19 23:54 Ondansetron HCl (Zofran) 4 mg Q6H PRN IVP Nausea & Vomiting 10/30/19 11:15 11/29/19 11:14 Pantoprazole (Protonix) 40 mg DAILY IVP 10/31/19 09:00 11/30/19 08:59 11/09/19 09:27 Polyethylene Glycol (Miralax) 17 gm DAILYPRN PRN ORAL Constipation 10/30/19 11:15 11/29/19 11:14 Quetiapine Fumarate (SEROqueL) 100 mg Q12HR GT 10/30/19 23:00 12/14/19 22:59 11/09/19 09:27 Allergies: Coded Allergies: No Known Allergies (Unverified , 10/30/19) ROS Limited/Unobtainable: Yes Subjective 73 YO M with history of esophageal cancer admitted with respiratory failure. Cover for Int Elijah-Dr Stark. ICU. Intubted and sedated. On Levophed Objective Last Vital Signs Date Time Temp Pulse Resp B/P (MAP) Pulse Ox O2 Delivery O2 Flow Rate FiO2 11/09/19 11:17 104 20 40 11/09/19 11:00 93/62 (72) 100 11/09/19 09:58 Mechanical Ventilator 11/09/19 08:00 98.3 Laboratory Tests Test 11/09/19 04:00 White Blood Count 10.1 K/UL (4.8-10.8) Red Blood Count 3.42 M/UL (4.70-6.10) L Hemoglobin 9.3 G/DL (14.2-18.0) L Hematocrit 28.9 % (42.0-52.0) L Mean Corpuscular Volume 84 FL (80-99) Mean Corpuscular Hemoglobin 27.3 PG (27.0-31.0) Mean Corpuscular Hemoglobin Concent 32.4 G/DL (32.0-36.0) Red Cell Distribution Width 16.0 % (11.6-14.8) H Platelet Count 348 K/UL (150-450) Mean Platelet Volume 4.2 FL (6.5-10.1) L Neutrophils (%) (Auto) 74.6 % (45.0-75.0) Lymphocytes (%) (Auto) 16.7 % (20.0-45.0) L Monocytes (%) (Auto) 5.6 % (1.0-10.0) Eosinophils (%) (Auto) 2.6 % (0.0-3.0) Basophils (%) (Auto) 0.6 % (0.0-2.0) Erythrocyte Sedimentation Rate 109 MM/HR (0-20) H Sodium Level 141 MMOL/L (136-145) Potassium Level 4.0 MMOL/L (3.5-5.1) Chloride Level 106 MMOL/L (98-107) Carbon Dioxide Level 23 MMOL/L (21-32) Anion Gap 12 mmol/L (5-15) Blood Urea Nitrogen 15 mg/dL (7-18) Creatinine 0.9 MG/DL (0.55-1.30) Estimat Glomerular Filtration Rate > 60 mL/min (>60) Glucose Level 85 MG/DL (74-106) Calcium Level 8.1 MG/DL (8.5-10.1) L Phosphorus Level 2.5 MG/DL (2.5-4.9) Magnesium Level 2.4 MG/DL (1.8-2.4) Total Bilirubin 0.2 MG/DL (0.2-1.0) Aspartate Amino Transf (AST/SGOT) 137 U/L (15-37) H Alanine Aminotransferase (ALT/SGPT) 97 U/L (12-78) H Alkaline Phosphatase 240 U/L (46-116) H C-Reactive Protein, Quantitative 5.2 mg/dL (0.00-0.90) H Total Protein 6.5 G/DL (6.4-8.2) Albumin 2.0 G/DL (3.4-5.0) L Globulin 4.5 g/dL Albumin/Globulin Ratio 0.4 (1.0-2.7) L Intake and Output 11/08/19 11/09/19 19:00 07:00 Intake Total 800 ml 1000 ml Output Total 990 ml 550 ml Balance -190 ml 450 ml Intake Free Water 200 ml IV Total 300 ml 300 ml Tube Feeding 500 ml 500 ml Output Urine Total 990 ml 550 ml # Bowel Movements 1 1 Objective PHYSICAL EXAMINATION: VITAL SIGNS: Temperature 98.1, respirations 25, pulse 92, blood pressure 95/59. GENERAL: The patient is well-developed, well-nourished male, who is intubated and sedated. HEENT: Eyes, pupils are equal and responsive to light and accommodation. Extraocular movements are intact. NECK: Supple without lymphadenopathy. CHEST: Mech vent; Coarse mechanical breath sounds bilaterally without wheezes or rales. CARDIOVASCULAR: Regular rhythm and rate. S1, S2 are normal without murmurs, rubs, or gallops. ABDOMEN: Soft, nontender, and nondistended. Positive bowel sounds. No evidence of hepatosplenomegaly. Currently, no rebound or guarding noted. EXTREMITIES: Negative for clubbing, cyanosis, or edema. RECTAL/GENITAL: Not performed. NEUROLOGICAL: Unable to assess. Assessment/Plan Assessment/Plan ASSESSMENT: This is a 73-year-old male. 1. Respiratory failure. 2. Pneumonia. 3. Esophageal cancer. 4. Diabetes type 2. 5. Hypertension. 6. Hypercholesterolemia. 7. Atrial fibrillation. 8. Hypothyroidism. 9. Dysphagia. 10. History of prostate cancer. 11. Sepsis=Enterococcus TREATMENT: 1. Pneumonia/respiratory failure. A Pulmonary consultation has been obtained with Dr. Jackie Kaiser. An Infectious Disease consultation has been obtained with Dr. Yifan Rivera. We will follow recommendations of Infectious Disease and Pulmonary. COVID 19=neg 2. Esophageal cancer. 3. Diabetes type 2. A NovoLog sliding scale has been instituted. 4. Hypertension. The patient is currently hypotensive and probable sepsis. 5. Hypercholesterolemia. Continue atorvastatin as above. 6. Atrial fibrillation. Continue amiodarone as above. 7. Hypothyroidism. Continue levothyroxine as above. 8. Dysphagia, status post PEG placement. 9. History of prostate cancer. 10. ABX = linezolid. Gallito Turcios MD Nov 09, 2019 13:25
--- NOTE | 2019-11-09 15:51 | Cardiology Progress Note ---
Assessment/Plan Assessment/Plan respiratory failure, pneumonia, on BX, on vent, stable from cardiac standpoint Subjective Subjective The patient is intubated, alert, opens his eyes and reacts apporpriately to the questions Objective Last 24 Hour Vital Signs Date Time Temp Pulse Resp B/P (MAP) Pulse Ox O2 Delivery O2 Flow Rate FiO2 11/09/19 15:00 87 16 95/51 (66) 100 11/09/19 14:00 86 16 93/53 (66) 96 11/09/19 13:25 88 17 40 11/09/19 13:00 93 18 100/60 (73) 100 11/09/19 12:00 Mechanical Ventilator 11/09/19 12:00 84 11/09/19 12:00 40 11/09/19 12:00 98.1 86 17 87/60 (69) 100 11/09/19 11:17 104 20 40 11/09/19 11:00 86 18 93/62 (72) 100 11/09/19 10:00 86 18 98/60 (73) 100 11/09/19 09:58 88 18 98 Mechanical Ventilator 40 11/09/19 09:17 87 17 40 11/09/19 09:00 85 18 95/62 (73) 100 11/09/19 08:00 88 11/09/19 08:00 40 11/09/19 08:00 98.3 86 18 105/92 (96) 99 11/09/19 08:00 Mechanical Ventilator 11/09/19 07:29 87 17 40 11/09/19 07:00 87 16 102/58 (73) 93 11/09/19 06:30 78 16 11/09/19 06:00 97.6 79 16 96/59 (71) 95 11/09/19 05:49 72 17 40 11/09/19 05:00 77 19 103/56 (72) 97 11/09/19 04:00 Mechanical Ventilator 11/09/19 04:00 74 19 90/56 (67) 95 11/09/19 04:00 77 11/09/19 04:00 40 11/09/19 03:28 70 17 40 11/09/19 03:00 78 16 96/55 (69) 95 11/09/19 02:00 97.9 68 16 98/56 (70) 96 11/09/19 01:00 68 16 102/54 (70) 95 11/09/19 00:00 69 16 93/51 (65) 98 11/09/19 00:00 69 11/09/19 00:00 Mechanical Ventilator 11/08/19 23:00 62 16 112/54 (73) 99 11/08/19 22:53 64 16 40 11/08/19 22:00 98.0 65 16 90/51 (64) 98 11/08/19 22:00 90/55 11/08/19 21:00 98.2 69 16 92/55 (67) 96 11/08/19 20:00 76 17 115/66 (82) 93 11/08/19 20:00 80 11/08/19 20:00 40 11/08/19 20:00 Mechanical Ventilator 11/08/19 19:25 71 17 40 11/08/19 19:00 78 25 117/58 (77) 96 11/08/19 18:00 98.0 75 17 172/63 (99) 97 11/08/19 17:00 67 16 127/74 (91) 99 11/08/19 16:50 67 16 40 11/08/19 16:00 97.1 57 16 113/71 (85) 100 11/08/19 16:00 Mechanical Ventilator 11/08/19 16:00 40 General Appearance: alert, on vent EENT: PERRL/EOMI Neck: no JVD Rhythm: NSR Cardiovascular: normal rate Respiratory/Chest: crackles/rales Abdomen: soft, distended Extremities: no swelling Intake and Output 11/08/19 11/09/19 19:00 07:00 Intake Total 800 ml 1000 ml Output Total 990 ml 550 ml Balance -190 ml 450 ml Intake Free Water 200 ml IV Total 300 ml 300 ml Tube Feeding 500 ml 500 ml Output Urine Total 990 ml 550 ml # Bowel Movements 1 1 Laboratory Tests Test 11/09/19 04:00 White Blood Count 10.1 K/UL (4.8-10.8) Red Blood Count 3.42 M/UL (4.70-6.10) L Hemoglobin 9.3 G/DL (14.2-18.0) L Hematocrit 28.9 % (42.0-52.0) L Mean Corpuscular Volume 84 FL (80-99) Mean Corpuscular Hemoglobin 27.3 PG (27.0-31.0) Mean Corpuscular Hemoglobin Concent 32.4 G/DL (32.0-36.0) Red Cell Distribution Width 16.0 % (11.6-14.8) H Platelet Count 348 K/UL (150-450) Mean Platelet Volume 4.2 FL (6.5-10.1) L Neutrophils (%) (Auto) 74.6 % (45.0-75.0) Lymphocytes (%) (Auto) 16.7 % (20.0-45.0) L Monocytes (%) (Auto) 5.6 % (1.0-10.0) Eosinophils (%) (Auto) 2.6 % (0.0-3.0) Basophils (%) (Auto) 0.6 % (0.0-2.0) Erythrocyte Sedimentation Rate 109 MM/HR (0-20) H Sodium Level 141 MMOL/L (136-145) Potassium Level 4.0 MMOL/L (3.5-5.1) Chloride Level 106 MMOL/L (98-107) Carbon Dioxide Level 23 MMOL/L (21-32) Anion Gap 12 mmol/L (5-15) Blood Urea Nitrogen 15 mg/dL (7-18) Creatinine 0.9 MG/DL (0.55-1.30) Estimat Glomerular Filtration Rate > 60 mL/min (>60) Glucose Level 85 MG/DL (74-106) Calcium Level 8.1 MG/DL (8.5-10.1) L Phosphorus Level 2.5 MG/DL (2.5-4.9) Magnesium Level 2.4 MG/DL (1.8-2.4) Total Bilirubin 0.2 MG/DL (0.2-1.0) Aspartate Amino Transf (AST/SGOT) 137 U/L (15-37) H Alanine Aminotransferase (ALT/SGPT) 97 U/L (12-78) H Alkaline Phosphatase 240 U/L (46-116) H C-Reactive Protein, Quantitative 5.2 mg/dL (0.00-0.90) H Total Protein 6.5 G/DL (6.4-8.2) Albumin 2.0 G/DL (3.4-5.0) L Globulin 4.5 g/dL Albumin/Globulin Ratio 0.4 (1.0-2.7) L Mikala Arreola MD Nov 09, 2019 15:51
[2019-11-09] MEDS: LORazepam Inj 2mg/ml 1ml IV PRN ×2 (16:36→21:06)
--- NOTE | 2019-11-09 16:38 | NUR ---
NURSE NOTES: Pt was administered Ativan per PRN order for anxiety; pt is very restless, dangling legs out of bed, pulling bed-sheet off of him and on the floor, facial grimacing and agitated. VS remain stable, with no other signs of respiratory distress or pain. Pt was repositioned in bed, Will continue to monitor.
--- NOTE | 2019-11-09 18:00 | NUR ---
NURSE NOTES: Pt is resting with stable VS and relaxed. Pt was cleaned and repositioned in bed. Total output of stool via rectal tube is 400ml brown liquid stool. VS remain stable.
--- NOTE | 2019-11-09 19:11 | NUR ---
HAND-OFF: Report given to Escobar ROBLEDO. Endorsed plan of care.
--- NOTE | 2019-11-09 19:30 | NUR ---
NURSE NOTES: SBAR from Melissa ROBLEDO. Pt is asleep and orally intubated. Bilateral soft wrist restraints are in place to prevent self-extubation. ETT 7.5 at 21cm left lipline, with vent settings AC16, VT600, FIO2 40%, Peep 0, at 100% O2Sat. NSR on desk monitor, HR 85. Central line present, right femoral TLC, saline locked, patent/intact. GT with feeding Glucerna 1.5 at goal rate of 50ml/hour. No noted residual. Abdomen is round, soft, nontender to touch with active bowel sounds. Patel catheter is present, draining cloudy, yellow urine. Skin is intact, with scrotal redness. Pt is on P200 pressure releasing mattress. HOB at 30 degrees, bed locked, in lowest position, and three side rails up. Will continue to monitor pt and follow plan of care per
[2019-11-09] MEDS: Dyna-Hex 2% Top Sol 2oz TOPIC SCH (20:00)
--- NOTE | 2019-11-09 20:00 | NUR ---
NURSE NOTES: Dr. Rivera at bedside making rounds. Informed MD regarding diarrhea episodes and overall care. Order for C-diff to be collected. Patient is asleep and afebrile at this time. Will continue to monitor.
--- NOTE | 2019-11-09 21:15 | Infectious Diseases Prog Note ---
Assessment/Plan Assessment/Plan A: Afebrile Leukocytosis, neutrophil predominant, SP Septic shock, sp off of pressors PNA Influenza A, sp rx SARS CoV PCR negative CXR: Bilateral mostly nodular mostly interstitial disease, as described. This could represent interstitial pneumonia or edema, among many other possibilities. However, given the nodular appearance and the presence of an infusion catheter the possibility of nodular metastatic disease should also be considered. Unlikely UTI UA 10-15 WBC UCx: NG VRE bacteremia BCx: VRE 10/29 TTE: focal AV sclerosis with adequate cusp excursion. thickened MV leaflets with normal excursion. mild mitral annulus and aortic root calcification. normal TV. no MR. mild TR. PV not visualized. QTc 552 Afib COPD Hypothyroid Dyslipidemia HTN DM Anemia CVA G tube, h/o abscess complication head and neck cancer Plan: Linezolid #8/14 4/6 Tamiflu #5 4/6 DC amikacin and ertapenem #4 / SP Vanc #3 monitor temp and CBC monitor resp status isolation precaution per hospital protocol f/u bcx TTE without severe valve insufficiency and bacteremia low grade. recommend repeating bcx at end of therapy to ensure resolution of bacteremia. If has recurrent fevers, will recommend ILENE. WENDI RN Thank you for this consult. [facility] Will continue to follow the patient with you. Subjective Allergies: Coded Allergies: No Known Allergies (Unverified , 10/30/19) Subjective Afebrile. agitated and received ativan so BP soft nurse reports watery stool Objective Vital Signs Last 24 Hour Vital Signs Date Time Temp Pulse Resp B/P (MAP) Pulse Ox O2 Delivery O2 Flow Rate FiO2 11/09/19 20:17 76 18 40 11/09/19 20:00 40 11/09/19 20:00 99.1 76 16 90/53 (65) 100 11/09/19 20:00 88 11/09/19 20:00 Mechanical Ventilator 11/09/19 19:00 75 16 89/52 (64) 100 11/09/19 18:00 98.2 77 16 80/52 (61) 99 11/09/19 17:21 79 16 40 11/09/19 17:00 76 16 90/62 (71) 100 11/09/19 16:00 83 11/09/19 16:00 99.0 89 18 110/68 (82) 100 11/09/19 16:00 Mechanical Ventilator 11/09/19 16:00 40 11/09/19 15:00 87 16 95/51 (66) 100 11/09/19 14:00 86 16 93/53 (66) 96 11/09/19 13:25 88 17 40 11/09/19 13:00 93 18 100/60 (73) 100 11/09/19 12:00 Mechanical Ventilator 11/09/19 12:00 84 11/09/19 12:00 40 11/09/19 12:00 98.1 86 17 87/60 (69) 100 11/09/19 11:17 104 20 40 11/09/19 11:00 86 18 93/62 (72) 100 11/09/19 10:00 86 18 98/60 (73) 100 11/09/19 09:58 88 18 98 Mechanical Ventilator 40 11/09/19 09:17 87 17 40 11/09/19 09:00 85 18 95/62 (73) 100 11/09/19 08:00 88 11/09/19 08:00 40 11/09/19 08:00 98.3 86 18 105/92 (96) 99 11/09/19 08:00 Mechanical Ventilator 11/09/19 07:29 87 17 40 11/09/19 07:00 87 16 102/58 (73) 93 11/09/19 06:30 78 16 11/09/19 06:00 97.6 79 16 96/59 (71) 95 11/09/19 05:49 72 17 40 11/09/19 05:00 77 19 103/56 (72) 97 11/09/19 04:00 Mechanical Ventilator 11/09/19 04:00 74 19 90/56 (67) 95 11/09/19 04:00 77 11/09/19 04:00 40 11/09/19 03:28 70 17 40 11/09/19 03:00 78 16 96/55 (69) 95 11/09/19 02:00 97.9 68 16 98/56 (70) 96 11/09/19 01:00 68 16 102/54 (70) 95 11/09/19 00:00 69 16 93/51 (65) 98 11/09/19 00:00 69 11/09/19 00:00 Mechanical Ventilator 11/08/19 23:00 62 16 112/54 (73) 99 11/08/19 22:53 64 16 40 11/08/19 22:00 98.0 65 16 90/51 (64) 98 11/08/19 22:00 90/55 Height (Feet): 6 Height (Inches): 1.00 Weight (Pounds): 150 Objective Gen: NAD. intubated. HEENT: ETT. CV: S1+S2. no rubs or gallop Resp: coarse. regular. equal chest rise. no wheezes Abd: soft. G tube. nondistended. Skin: warm. dry. Neuro: awake. follows simple commands. calm Laboratory Tests Test 11/09/19 04:00 White Blood Count 10.1 K/UL (4.8-10.8) Red Blood Count 3.42 M/UL (4.70-6.10) L Hemoglobin 9.3 G/DL (14.2-18.0) L Hematocrit 28.9 % (42.0-52.0) L Mean Corpuscular Volume 84 FL (80-99) Mean Corpuscular Hemoglobin 27.3 PG (27.0-31.0) Mean Corpuscular Hemoglobin Concent 32.4 G/DL (32.0-36.0) Red Cell Distribution Width 16.0 % (11.6-14.8) H Platelet Count 348 K/UL (150-450) Mean Platelet Volume 4.2 FL (6.5-10.1) L Neutrophils (%) (Auto) 74.6 % (45.0-75.0) Lymphocytes (%) (Auto) 16.7 % (20.0-45.0) L Monocytes (%) (Auto) 5.6 % (1.0-10.0) Eosinophils (%) (Auto) 2.6 % (0.0-3.0) Basophils (%) (Auto) 0.6 % (0.0-2.0) Erythrocyte Sedimentation Rate 109 MM/HR (0-20) H Sodium Level 141 MMOL/L (136-145) Potassium Level 4.0 MMOL/L (3.5-5.1) Chloride Level 106 MMOL/L (98-107) Carbon Dioxide Level 23 MMOL/L (21-32) Anion Gap 12 mmol/L (5-15) Blood Urea Nitrogen 15 mg/dL (7-18) Creatinine 0.9 MG/DL (0.55-1.30) Estimat Glomerular Filtration Rate > 60 mL/min (>60) Glucose Level 85 MG/DL (74-106) Calcium Level 8.1 MG/DL (8.5-10.1) L Phosphorus Level 2.5 MG/DL (2.5-4.9) Magnesium Level 2.4 MG/DL (1.8-2.4) Total Bilirubin 0.2 MG/DL (0.2-1.0) Aspartate Amino Transf (AST/SGOT) 137 U/L (15-37) H Alanine Aminotransferase (ALT/SGPT) 97 U/L (12-78) H Alkaline Phosphatase 240 U/L (46-116) H C-Reactive Protein, Quantitative 5.2 mg/dL (0.00-0.90) H Total Protein 6.5 G/DL (6.4-8.2) Albumin 2.0 G/DL (3.4-5.0) L Globulin 4.5 g/dL Albumin/Globulin Ratio 0.4 (1.0-2.7) L Current Medications Medications (Trade) Dose Ordered Sig/Tasha Route PRN Reason Start Time Stop Time Status Last Admin Dose Admin Acetaminophen (Tylenol) 650 mg Q4H PRN ORAL fever 10/30/19 11:15 11/29/19 11:14 11/09/19 21:06 Amiodarone HCl (Cordarone) 100 mg DAILY PEG 11/04/19 09:00 01/29/20 08:59 11/09/19 09:27 Chlorhexidine Gluconate (Megan-Hex 2%) 1 applic DAILY@2000 TOPIC 11/01/19 20:00 01/30/20 19:59 11/09/19 20:00 Heparin Sodium (Porcine) (Heparin 5000 units/ml) 5,000 units EVERY 12 HOURS SUBQ 11/02/19 09:00 12/17/19 08:59 11/09/19 21:05 Levothyroxine Sodium (Synthroid) 50 mcg DAILY@0630 GT 10/31/19 06:30 11/30/19 06:29 11/09/19 06:30 Linezolid 300 ml @ 300 mls/hr Q12HR IVPB 11/02/19 13:30 11/15/19 23:59 11/09/19 21:05 Lorazepam (Ativan 2mg/ml 1ml) 2 mg Q2HR PRN IV For Anxiety 11/06/19 22:30 11/13/19 22:29 11/09/19 21:06 Norepinephrine Bitartrate 4 mg/ Dextrose 254 ml @ 0 mls/hr Q24H IV 10/30/19 22:00 11/29/19 21:59 11/01/19 23:54 Ondansetron HCl (Zofran) 4 mg Q6H PRN IVP Nausea & Vomiting 10/30/19 11:15 11/29/19 11:14 Pantoprazole (Protonix) 40 mg DAILY IVP 10/31/19 09:00 11/30/19 08:59 11/09/19 09:27 Polyethylene Glycol (Miralax) 17 gm DAILYPRN PRN ORAL Constipation 10/30/19 11:15 11/29/19 11:14 Quetiapine Fumarate (SEROqueL) 100 mg Q12HR GT 10/30/19 23:00 12/14/19 22:59 11/09/19 21:06 Yifan Rivera MD Nov 09, 2019 21:15
--- NOTE | 2019-11-09 22:07 | NUR ---
NURSE NOTES: C-diff collected and sent to lab, patient is mildly agitated. Ativan IVP given. Patient repositioned and rectal tube remains intact. Vitals are stable. No respiratory distress, afebrile.
[2019-11-10] VITALS (24 sets, daily range): BP systolic 75–111; BP diastolic 47–75
--- NOTE | 2019-11-10 00:26 | NUR ---
NURSE NOTES: Repositioned patient and provided oral care. No new change at this time, vitals continue to be stable and patient remains afebrile. Still producing liquid diarrhea, rectal tube remains in place and intact. New rectal tube bag replaced. Patient sleeping but easily arousable. Will continue to monitor.
--- NOTE | 2019-11-10 02:00 | NUR ---
NURSE NOTES: Patients repositioned. Vitals remains stable and patient continues to be afebrile. Suctioned and lavaged patient. Patient Patient sleeping but remains arousable to verbal commands.
--- NOTE | 2019-11-10 04:00 | NUR ---
NURSE NOTES: Sponge bath given and labs were drawn. Lavaged and suctioned patient. Rectal tube remains patent and intact. No distress at this time. Remains afebrile.Will continue to monitor.
[2019-11-10 05:07] LABS: BASOPHILS % (AUTO) 0.8 % (0.0-2.0); EOSINOPHILS % (AUTO) 2.1 % (0.0-3.0); HEMATOCRIT 28.8 % (42.0-52.0); HEMOGLOBIN 9.5 G/DL (14.2-18.0); LYMPHOCYTES % (AUTO) 21.8 % (20.0-45.0); MEAN CORPUSCULAR VOLUME 85 FL (80-99); NEUTROPHILS % (AUTO) 70.2 % (45.0-75.0); PLATELET COUNT 335 K/UL (150-450); RED BLOOD COUNT 3.39 M/UL (4.70-6.10); RED CELL DISTRIBUTION WIDTH 15.7 % (11.6-14.8); WHITE BLOOD COUNT 10.5 K/UL (4.8-10.8)
[2019-11-10 05:30] LABS: ALANINE AMINOTRANSFERASE 118 U/L (12-78); ALBUMIN 2.2 G/DL (3.4-5.0); ALBUMIN/GLOBULIN RATIO 0.6 (1.0-2.7); ALKALINE PHOSPHATASE 252 U/L (46-116); ANION GAP 9 mmol/L (5-15); ASPARTATE AMINO TRANSFERASE 148 U/L (15-37); BILIRUBIN,TOTAL 0.2 MG/DL (0.2-1.0); BLOOD UREA NITROGEN 17 mg/dL (7-18); CALCIUM 8.1 MG/DL (8.5-10.1); CARBON DIOXIDE 26 MMOL/L (21-32); CHLORIDE 107 MMOL/L (98-107); CREATININE 0.9 MG/DL (0.55-1.30); POTASSIUM 4.5 MMOL/L (3.5-5.1); SODIUM 142 MMOL/L (136-145)
--- NOTE | 2019-11-10 05:46 | NUR ---
NURSE NOTES: Hold feeds for am Synthroid.
--- NOTE | 2019-11-10 06:47 | NUR ---
NURSE NOTES: Patient remains stable at this time, no acute distress, remains asleep. Vitals stable.
--- NOTE | 2019-11-10 07:11 | NUR ---
HAND-OFF: Report given to Katie ROBLEDO.
--- NOTE | 2019-11-10 08:00 | NUR ---
NURSE NOTES: Received change of shift report from Escobar ROBLEDO. Pt is awake, disoriented, restless, orally intubated, and attempting to pull out ET tube. Bilateral soft wrist restraints are in place to prevent self-extubation. ETT 7.5 at 21cm right lipline, with vent settings AC16, VT600, FIO2 40%, Peep 0, at 100% O2Sat. NSR on awake overnight monitor, HR 72. Central line present, right femoral TLC, saline locked, patent/intact. Temp 98.0F axillary. GT with feeding Glucerna 1.5 at goal rate of 50ml/hour. No noted residual. Abdomen is round, soft, nontender to touch with active bowel sounds. Patel catheter is present, draining cloudy, yellow urine. Skin is intact, with scrotal redness. Pt is on P200 pressure releasing mattress. HOB at 30 degrees, bed locked, in lowest position, and three side rails up. Will continue to monitor pt and follow plan of care per MD orders and protocol.
--- NOTE | 2019-11-10 08:36 | Pulmonolgy Critical Care Note ---
Critical Care - Asmt/Plan Assessment/Plan: ASSESSMENT Acute respiratory failure requiring intubation Septic shock Sepsis with VRE bacteremia Pneumonia Influenza A Acute kidney injury -resolved Atrial fibrillation COPD Esophageal cancer History of prostate cancer Anemia Transaminitis PLAN of CARE ICU vent support pulmonary toilet fup with ABG and CXR, wean as tolerated off pressors will attempt weaning in am as tolerated Echo with pEF 55% , no evidence of vegetation influenza screen +influenza A , s/p Rx with Tamiflu COVID by PCR NGT BCX + VRE , repeated BCX NGT will need 2 wkx of Zyvox as per ID IVF JESSICA resolved monitor renal parameters, lytes , correct electrolytes as needed , avoid nephrotoxic monitor H&H with goal to keep hemoglobin above 7 stool OB positive trend LFT, consider abdominal US case discussed and evaluated by supervising physician Critical Care - Objective Last 24 Hour Vital Signs Date Time Temp Pulse Resp B/P (MAP) Pulse Ox O2 Delivery O2 Flow Rate FiO2 11/10/19 07:18 72 19 40 11/10/19 07:00 72 16 91/53 (66) 96 11/10/19 06:38 70 20 11/10/19 06:00 69 16 89/47 (61) 99 11/10/19 05:05 70 18 40 11/10/19 05:00 62 16 87/49 (62) 100 11/10/19 04:00 40 11/10/19 04:00 Mechanical Ventilator 11/10/19 04:00 63 11/10/19 04:00 98.6 63 16 75/49 (58) 100 11/10/19 03:00 64 16 84/47 (59) 99 11/10/19 02:00 76 17 96/73 (81) 100 11/10/19 01:48 81 17 40 11/10/19 01:00 78 16 111/61 (78) 100 11/10/19 00:00 Mechanical Ventilator 11/10/19 00:00 99.3 79 15 96/67 (77) 100 11/10/19 00:00 40 11/10/19 00:00 79 11/09/19 23:00 76 16 93/48 (63) 99 11/09/19 22:57 74 18 40 11/09/19 22:00 77 16 92/54 (67) 100 11/09/19 21:00 77 18 101/64 (76) 100 11/09/19 20:17 76 18 40 11/09/19 20:00 40 11/09/19 20:00 99.1 76 16 90/53 (65) 100 11/09/19 20:00 88 11/09/19 20:00 Mechanical Ventilator 11/09/19 19:00 75 16 89/52 (64) 100 11/09/19 18:00 98.2 77 16 80/52 (61) 99 11/09/19 17:21 79 16 40 11/09/19 17:00 76 16 90/62 (71) 100 11/09/19 16:00 83 11/09/19 16:00 99.0 89 18 110/68 (82) 100 11/09/19 16:00 Mechanical Ventilator 11/09/19 16:00 40 11/09/19 15:00 87 16 95/51 (66) 100 11/09/19 14:00 86 16 93/53 (66) 96 11/09/19 13:25 88 17 40 11/09/19 13:00 93 18 100/60 (73) 100 11/09/19 12:00 Mechanical Ventilator 11/09/19 12:00 84 11/09/19 12:00 40 11/09/19 12:00 98.1 86 17 87/60 (69) 100 11/09/19 11:17 104 20 40 11/09/19 11:00 86 18 93/62 (72) 100 11/09/19 10:00 86 18 98/60 (73) 100 11/09/19 09:58 88 18 98 Mechanical Ventilator 40 11/09/19 09:17 87 17 40 11/09/19 09:00 85 18 95/62 (73) 100 Objective: Condition: critical, intubated HEENT: atraumatic, normocephalic, OP with ET in place, intact Lungs: BS oveall clear Heart: HR/BP stable Abdomen: soft, non-tender Extremities: no edema Micro: Microbiology Date/Time Source Procedure Growth Status 11/09/19 22:00 Stool Clostridium difficile Toxin Assay - Final Complete Critical Care - Subjective ROS Limited/Unobtainable: Yes Interval Events: no fevers, no leukocytosis no signs of resp distress on current settings Condition: critical EKG Rhythm: Sinus Rhythm FI02: 40 Vent Support Breath Rate: 16 Vent Support Mode: AC Vent Tidal Volume: 600 Sputum Amount: Moderate PEEP: 0.0 PIP: 26 Tube Feeding Amount: 50 I&O: Intake and Output 11/09/19 11/10/19 19:00 07:00 Intake Total 1020 ml 1000 ml Output Total 990 ml 1140 ml Balance 30 ml -140 ml Intake Free Water 120 ml 200 ml IV Total 300 ml 300 ml Tube Feeding 600 ml 500 ml Output Urine Total 490 ml 440 ml Stool Total 500 ml 700 ml # Bowel Movements 3 CXR: CXR 11/07 Improved and now satisfactory position of previously malpositioned endotracheal tube ET-Tube: 7.5 ET Position: 21 Ana Flores CONSTRUCTION CONSULTANT Nov 10, 2019 08:36
[2019-11-10] MEDS ORDERED: Albuterol/Ipratropium 3ml neb HHN PRN (08:45)
[2019-11-10] MEDS: Amiodarone 200mg tab PEG SCH (09:48)
[2019-11-10] MEDS: Pantoprazole Inj IVP SCH (09:48)
[2019-11-10] MEDS: Heparin 5000 units/ml inj SUBQ SCH ×2 (09:52→19:44)
[2019-11-10] MEDS: LORazepam Inj 2mg/ml 1ml IV PRN ×3 (09:53→19:47)
--- NOTE | 2019-11-10 09:59 | NUR ---
RD ASSESSMENT & RECOMMENDATIONS SEE CARE ACTIVITY FOR COMPLETE ASSESSMENT DAILY ESTIMATED NEEDS: Needs based on CRITICAL CARE/ 66kg 22-28 kcals/kg 9592-8035 total kcals 1.2-2 g protein/kg 79-132 g total protein 25-30 mL/kg 5576-3752 total fluid mLs NUTRITION DIAGNOSIS: Swallowing difficulty R/T dysphagia as evidenced by PEG dep, s/p oral intubation, pressor support now held. CURRENT TF: Glucerna 1.5 @ 50 ml/hr x 22 hrs (Synthroid QD) ENTERAL NUTRITION RECOMMENDATIONS: Glucerna 1.5 @ 50ml/hr x 22 hrs (hold 1 hr before and after Synthroid) to provide 1100ml, 1650kcal, 91g prot, 835ml free water * Maintain current TF as tolerated to meet 100% est kcal and pro needs. * HOB over 30 degrees/ water flush per MD * Hold 1 hr before and after Synthroid med. ADDITIONAL RECOMMENDATIONS: * Per SN[facility]: HT=66" RB=674# (as of 10/18) -> rec calibrated bedscale wt * Consider bedside BG testing: h/o DM -> Monitor need for NISS * Check lytes daily, replete as needed .
--- NOTE | 2019-11-10 10:00 | NUR ---
NURSE NOTES: AM meds were administered in addition to Ativan per PRN order for anxiety as pt is noted to be very restless, kicking with legs and pulling linens. VS remain stable. Oral care was done. ABGs were drawn, and chest xray done. Pt was cleaned and repositioned.
--- NOTE | 2019-11-10 10:39 | Diagnostic Imaging Report ---
EXAM: XR Chest, 1 View CLINICAL HISTORY: SOB TECHNIQUE: Frontal view of the chest. COMPARISON: 11/09/19. FINDINGS: Redemonstrated endotracheal tube above the annemarie, appropriately position. Redemonstrated infusion ports in a right clavian approach. Persistent basilar predominant interstitial and airspace infiltrates. Edema and pneumonia are both possibilities. The cardiac silhouette is not well assessed due to adjacent infiltrates, but appears at least borderline enlarged. Aortic calcifications. Degenerative changes of the skeleton. IMPRESSION: Persistent basilar predominant interstitial and airspace infiltrates. Edema and infection are again both possibilities. Also consider superimposed malignancy, particularly given infusion ports. Appropriately positioned ET tube.
--- NOTE | 2019-11-10 12:00 | NUR ---
NURSE NOTES: Pt was seen by Ana Flores SCHOOL PSYCHOLOGY SPECIALIST, for pulmonary follow up. Orders noted for chest xray, ABGs, CBC/CMP for tomorrow AM. VS remain stable.
[2019-11-10] MEDS ORDERED: NS 275ml ONE ×2 (14:10→14:25)
[2019-11-10] MEDS ORDERED: Tubing IV Secondary IV ONE (14:25)
--- NOTE | 2019-11-10 15:25 | Internal Med Progress Note ---
Subjective Date of Service: Nov 10, 2019 Physician Name KarolinaGallito Attending Physician Danny Stark MD Current Medications Medications (Trade) Dose Ordered Sig/Tasha Route PRN Reason Start Time Stop Time Status Last Admin Dose Admin Acetaminophen (Tylenol) 650 mg Q4H PRN ORAL fever 10/30/19 11:15 11/29/19 11:14 11/09/19 21:06 Albuterol/ Ipratropium (Albuterol/ Ipratropium) 3 ml Q4H PRN HHN sob 11/10/19 08:45 11/15/19 08:44 Amiodarone HCl (Cordarone) 100 mg DAILY PEG 11/04/19 09:00 01/29/20 08:59 11/10/19 09:48 Chlorhexidine Gluconate (Megan-Hex 2%) 1 applic DAILY@2000 TOPIC 11/01/19 20:00 01/30/20 19:59 11/09/19 20:00 Heparin Sodium (Porcine) (Heparin 5000 units/ml) 5,000 units EVERY 12 HOURS SUBQ 11/02/19 09:00 12/17/19 08:59 11/10/19 09:52 Levothyroxine Sodium (Synthroid) 50 mcg DAILY@0630 GT 10/31/19 06:30 11/30/19 06:29 11/10/19 06:19 Linezolid 300 ml @ 300 mls/hr Q12HR IVPB 11/02/19 13:30 11/15/19 23:59 11/10/19 09:48 Lorazepam (Ativan 2mg/ml 1ml) 2 mg Q2HR PRN IV For Anxiety 11/06/19 22:30 11/13/19 22:29 11/10/19 09:53 Norepinephrine Bitartrate 4 mg/ Dextrose 254 ml @ 0 mls/hr Q24H IV 10/30/19 22:00 11/29/19 21:59 11/01/19 23:54 Ondansetron HCl (Zofran) 4 mg Q6H PRN IVP Nausea & Vomiting 10/30/19 11:15 11/29/19 11:14 Pantoprazole (Protonix) 40 mg DAILY IVP 10/31/19 09:00 11/30/19 08:59 11/10/19 09:48 Polyethylene Glycol (Miralax) 17 gm DAILYPRN PRN ORAL Constipation 10/30/19 11:15 11/29/19 11:14 Quetiapine Fumarate (SEROqueL) 100 mg Q12HR GT 10/30/19 23:00 12/14/19 22:59 11/10/19 09:48 Allergies: Coded Allergies: No Known Allergies (Unverified , 10/30/19) ROS Limited/Unobtainable: Yes Subjective 73 YO M with history of esophageal cancer admitted with respiratory failure. Cover for Int Med-Dr Stark. ICU. Intubted and sedated. Objective Last Vital Signs Date Time Temp Pulse Resp B/P (MAP) Pulse Ox O2 Delivery O2 Flow Rate FiO2 11/10/19 15:00 74 17 97/52 (67) 95 11/10/19 12:43 40 11/10/19 12:00 Mechanical Ventilator 11/10/19 08:00 98.4 Laboratory Tests Test 11/10/19 04:00 11/10/19 09:04 White Blood Count 10.5 K/UL (4.8-10.8) Red Blood Count 3.39 M/UL (4.70-6.10) L Hemoglobin 9.5 G/DL (14.2-18.0) L Hematocrit 28.8 % (42.0-52.0) L Mean Corpuscular Volume 85 FL (80-99) Mean Corpuscular Hemoglobin 27.9 PG (27.0-31.0) Mean Corpuscular Hemoglobin Concent 32.9 G/DL (32.0-36.0) Red Cell Distribution Width 15.7 % (11.6-14.8) H Platelet Count 335 K/UL (150-450) Mean Platelet Volume 4.3 FL (6.5-10.1) L Neutrophils (%) (Auto) 70.2 % (45.0-75.0) Lymphocytes (%) (Auto) 21.8 % (20.0-45.0) Monocytes (%) (Auto) 5.0 % (1.0-10.0) Eosinophils (%) (Auto) 2.1 % (0.0-3.0) Basophils (%) (Auto) 0.8 % (0.0-2.0) Sodium Level 142 MMOL/L (136-145) Potassium Level 4.5 MMOL/L (3.5-5.1) Chloride Level 107 MMOL/L (98-107) Carbon Dioxide Level 26 MMOL/L (21-32) Anion Gap 9 mmol/L (5-15) Blood Urea Nitrogen 17 mg/dL (7-18) Creatinine 0.9 MG/DL (0.55-1.30) Estimat Glomerular Filtration Rate > 60 mL/min (>60) Glucose Level 79 MG/DL (74-106) Calcium Level 8.1 MG/DL (8.5-10.1) L Total Bilirubin 0.2 MG/DL (0.2-1.0) Aspartate Amino Transf (AST/SGOT) 148 U/L (15-37) H Alanine Aminotransferase (ALT/SGPT) 118 U/L (12-78) H Alkaline Phosphatase 252 U/L (46-116) H Total Protein 6.2 G/DL (6.4-8.2) L Albumin 2.2 G/DL (3.4-5.0) L Globulin 4.0 g/dL Albumin/Globulin Ratio 0.6 (1.0-2.7) L Arterial Blood pH 7.441 (7.350-7.450) Arterial Blood Partial Pressure CO2 33.1 mmHg (35.0-45.0) L Arterial Blood Partial Pressure O2 74.2 mmHg (75.0-100.0) L Arterial Blood HCO3 22.0 mmol/L (22.0-26.0) Arterial Blood Oxygen Saturation 94.6 % (95-100) L Arterial Blood Base Excess -1.6 (-2-2) Ty Test Positive Microbiology Date/Time Source Procedure Growth Status 11/09/19 22:00 Stool Clostridium difficile Toxin Assay - Final Complete Intake and Output 11/09/19 11/10/19 19:00 07:00 Intake Total 1020 ml 1000 ml Output Total 990 ml 1140 ml Balance 30 ml -140 ml Intake Free Water 120 ml 200 ml IV Total 300 ml 300 ml Tube Feeding 600 ml 500 ml Output Urine Total 490 ml 440 ml Stool Total 500 ml 700 ml # Bowel Movements 3 Objective PHYSICAL EXAMINATION: VITAL SIGNS: Temperature 98.1, respirations 25, pulse 92, blood pressure 95/59. GENERAL: The patient is well-developed, well-nourished male, who is intubated and sedated. HEENT: Eyes, pupils are equal and responsive to light and accommodation. Extraocular movements are intact. NECK: Supple without lymphadenopathy. CHEST: Mech vent; Coarse mechanical breath sounds bilaterally without wheezes or rales. CARDIOVASCULAR: Regular rhythm and rate. S1, S2 are normal without murmurs, rubs, or gallops. ABDOMEN: Soft, nontender, and nondistended. Positive bowel sounds. No evidence of hepatosplenomegaly. Currently, no rebound or guarding noted. EXTREMITIES: Negative for clubbing, cyanosis, or edema. RECTAL/GENITAL: Not performed. NEUROLOGICAL: Unable to assess. Assessment/Plan Assessment/Plan ASSESSMENT: This is a 73-year-old male. 1. Respiratory failure. 2. Pneumonia. 3. Esophageal cancer. 4. Diabetes type 2. 5. Hypertension. 6. Hypercholesterolemia. 7. Atrial fibrillation. 8. Hypothyroidism. 9. Dysphagia. 10. History of prostate cancer. 11. Sepsis=Enterococcus TREATMENT: 1. Pneumonia/respiratory failure. A Pulmonary consultation has been obtained with Dr. Jackie Kaiser. An Infectious Disease consultation has been obtained with Dr. Yifan Rivera. We will follow recommendations of Infectious Disease and Pulmonary. COVID 19=neg 2. Esophageal cancer. 3. Diabetes type 2. A NovoLog sliding scale has been instituted. 4. Hypertension. The patient is currently hypotensive and probable sepsis. 5. Hypercholesterolemia. Continue atorvastatin as above. 6. Atrial fibrillation. Continue amiodarone as above. 7. Hypothyroidism. Continue levothyroxine as above. 8. Dysphagia, status post PEG placement. 9. History of prostate cancer. 10. ABX = linezolid. Gallito Turcios MD Nov 10, 2019 15:25
--- NOTE | 2019-11-10 16:00 | NUR ---
NURSE NOTES: FIO2 was titrated up to 50% from 40%, by RT per ABG results.
--- NOTE | 2019-11-10 17:02 | NUR ---
NURSE NOTES: Pt was administered Ativan per PRN order for anxiety, pt is very restless, biting on ET tube, facial grimacing, and making a fist. VS remain stable.
--- NOTE | 2019-11-10 18:00 | NUR ---
NURSE NOTES: Pt was cleaned and repositioned. Oral care done. VS remain stable. Pt is resting in no apparent distress.
--- NOTE | 2019-11-10 19:02 | Cardiology Progress Note ---
Assessment/Plan Assessment/Plan respiratory failure sepsis, hypotesnion requring pressurs, pneumonia, no changes from cardiac standpoint Subjective Subjective The patient is intubated, alert, opens his eyes and reacts apporpriately to the questions Objective Last 24 Hour Vital Signs Date Time Temp Pulse Resp B/P (MAP) Pulse Ox O2 Delivery O2 Flow Rate FiO2 11/10/19 16:42 79 16 50 11/10/19 15:00 74 17 97/52 (67) 95 11/10/19 14:00 71 16 94/54 (67) 97 11/10/19 13:00 67 16 92/53 (66) 98 11/10/19 12:43 72 17 40 11/10/19 12:00 40 11/10/19 12:00 64 16 111/54 (73) 100 11/10/19 12:00 67 11/10/19 12:00 Mechanical Ventilator 11/10/19 11:00 67 16 85/51 (62) 97 11/10/19 10:00 69 16 89/55 (66) 97 11/10/19 09:00 75 23 103/75 (84) 100 11/10/19 08:00 76 11/10/19 08:00 98.4 74 19 92/69 (77) 97 11/10/19 08:00 40 11/10/19 08:00 Mechanical Ventilator 11/10/19 07:18 72 19 40 11/10/19 07:00 72 16 91/53 (66) 96 11/10/19 06:38 70 20 11/10/19 06:00 69 16 89/47 (61) 99 11/10/19 05:05 70 18 40 11/10/19 05:00 62 16 87/49 (62) 100 11/10/19 04:00 40 11/10/19 04:00 Mechanical Ventilator 11/10/19 04:00 63 11/10/19 04:00 98.6 63 16 75/49 (58) 100 11/10/19 03:00 64 16 84/47 (59) 99 11/10/19 02:00 76 17 96/73 (81) 100 11/10/19 01:48 81 17 40 11/10/19 01:00 78 16 111/61 (78) 100 11/10/19 00:00 Mechanical Ventilator 4/12/20 00:00 99.3 79 15 96/67 (77) 100 11/10/19 00:00 40 11/10/19 00:00 79 11/09/19 23:00 76 16 93/48 (63) 99 11/09/19 22:57 74 18 40 11/09/19 22:00 77 16 92/54 (67) 100 11/09/19 21:00 77 18 101/64 (76) 100 11/09/19 20:17 76 18 40 11/09/19 20:00 40 11/09/19 20:00 99.1 76 16 90/53 (65) 100 11/09/19 20:00 88 11/09/19 20:00 Mechanical Ventilator General Appearance: on vent EENT: PERRL/EOMI Neck: no JVD Rhythm: ST Cardiovascular: tachycardia, systolic murmur Respiratory/Chest: rhonchi - bilaterally Intake and Output 11/09/19 11/10/19 19:00 07:00 Intake Total 1020 ml 1000 ml Output Total 990 ml 1140 ml Balance 30 ml -140 ml Intake Free Water 120 ml 200 ml IV Total 300 ml 300 ml Tube Feeding 600 ml 500 ml Output Urine Total 490 ml 440 ml Stool Total 500 ml 700 ml # Bowel Movements 3 Laboratory Tests Test 11/10/19 04:00 11/10/19 09:04 White Blood Count 10.5 K/UL (4.8-10.8) Red Blood Count 3.39 M/UL (4.70-6.10) L Hemoglobin 9.5 G/DL (14.2-18.0) L Hematocrit 28.8 % (42.0-52.0) L Mean Corpuscular Volume 85 FL (80-99) Mean Corpuscular Hemoglobin 27.9 PG (27.0-31.0) Mean Corpuscular Hemoglobin Concent 32.9 G/DL (32.0-36.0) Red Cell Distribution Width 15.7 % (11.6-14.8) H Platelet Count 335 K/UL (150-450) Mean Platelet Volume 4.3 FL (6.5-10.1) L Neutrophils (%) (Auto) 70.2 % (45.0-75.0) Lymphocytes (%) (Auto) 21.8 % (20.0-45.0) Monocytes (%) (Auto) 5.0 % (1.0-10.0) Eosinophils (%) (Auto) 2.1 % (0.0-3.0) Basophils (%) (Auto) 0.8 % (0.0-2.0) Sodium Level 142 MMOL/L (136-145) Potassium Level 4.5 MMOL/L (3.5-5.1) Chloride Level 107 MMOL/L (98-107) Carbon Dioxide Level 26 MMOL/L (21-32) Anion Gap 9 mmol/L (5-15) Blood Urea Nitrogen 17 mg/dL (7-18) Creatinine 0.9 MG/DL (0.55-1.30) Estimat Glomerular Filtration Rate > 60 mL/min (>60) Glucose Level 79 MG/DL (74-106) Calcium Level 8.1 MG/DL (8.5-10.1) L Total Bilirubin 0.2 MG/DL (0.2-1.0) Aspartate Amino Transf (AST/SGOT) 148 U/L (15-37) H Alanine Aminotransferase (ALT/SGPT) 118 U/L (12-78) H Alkaline Phosphatase 252 U/L (46-116) H Total Protein 6.2 G/DL (6.4-8.2) L Albumin 2.2 G/DL (3.4-5.0) L Globulin 4.0 g/dL Albumin/Globulin Ratio 0.6 (1.0-2.7) L Arterial Blood pH 7.441 (7.350-7.450) Arterial Blood Partial Pressure CO2 33.1 mmHg (35.0-45.0) L Arterial Blood Partial Pressure O2 74.2 mmHg (75.0-100.0) L Arterial Blood HCO3 22.0 mmol/L (22.0-26.0) Arterial Blood Oxygen Saturation 94.6 % (95-100) L Arterial Blood Base Excess -1.6 (-2-2) Ty Test Positive Microbiology Date/Time Source Procedure Growth Status 11/09/19 22:00 Stool Clostridium difficile Toxin Assay - Final Complete Mikala Arreola MD Nov 10, 2019 19:02
--- NOTE | 2019-11-10 19:20 | NUR ---
HAND-OFF: Report given to Escobar ROBLEDO. Endorsed plan of care. VS remain stable.
[2019-11-10] MEDS: Dyna-Hex 2% Top Sol 2oz TOPIC SCH (19:42)
--- NOTE | 2019-11-10 20:00 | NUR ---
NURSE NOTES: SBAR from Melissa ROBLEDO. Pt is asleep and orally intubated. Bilateral soft wrist restraints are in place to prevent self-extubation. ETT 7.5 at 21cm left lipline, with vent settings AC16, VT600, FIO2 40%, Peep 0, at 100% O2Sat. NSR on air sampling and monitoring, HR 77. Central line present, right femoral TLC, saline locked, patent/intact. GT with feeding Glucerna 1.5 at goal rate of 50ml/hour. No noted residual. Abdomen is round, soft, nontender to touch with active bowel sounds. Patel catheter is present, draining cloudy, yellow urine. Skin is intact, with scrotal redness. Pt is on P200 pressure releasing mattress. HOB at 30 degrees, bed locked, in lowest position, and three side rails up. Will continue to monitor pt and follow plan of care per
--- NOTE | 2019-11-10 22:00 | NUR ---
NURSE NOTES: Repositioned patient and oral care performed. All due medications given. Lavaged and suctioned patient. NAD at this time. VSS.
[2019-11-11] VITALS (24 sets, daily range): BP systolic 84–141; BP diastolic 50–81
--- NOTE | 2019-11-11 | NUR ---
NURSE NOTES: Repositioned and suctioned patient. VSS, afebrile, diarrhea continues, rectal tube patent and intact. No new change.
--- NOTE | 2019-11-11 02:00 | NUR ---
NURSE NOTES: Repositioned and suctioned. VSS, no new changes.
--- NOTE | 2019-11-11 04:00 | NUR ---
NURSE NOTES: Sponge bath given and oral care performed. Lavaged patient and suctioned. Repositioned to comfort. patients Vitals are stable, no new changes. Blood drawn and sent to lab. Central line dressing changes using aseptic technique.
[2019-11-11] MEDS: LORazepam Inj 2mg/ml 1ml IV PRN ×2 (05:35→21:24)
[2019-11-11 05:42] LABS: HEMATOCRIT 29.5 % (42.0-52.0); HEMOGLOBIN 9.8 G/DL (14.2-18.0); MEAN CORPUSCULAR VOLUME 85 FL (80-99); PLATELET COUNT 333 K/UL (150-450); RED BLOOD COUNT 3.48 M/UL (4.70-6.10); RED CELL DISTRIBUTION WIDTH 15.9 % (11.6-14.8); WHITE BLOOD COUNT 18.2 K/UL (4.8-10.8)
[2019-11-11 05:55] LABS: BLOOD UREA NITROGEN 19 mg/dL (7-18); CALCIUM 7.7 MG/DL (8.5-10.1); CARBON DIOXIDE 29 MMOL/L (21-32); CHLORIDE 106 MMOL/L (98-107); POTASSIUM 4.8 MMOL/L (3.5-5.1); SODIUM 141 MMOL/L (136-145)
--- NOTE | 2019-11-11 06:00 | NUR ---
NURSE NOTES: Repositioned and suctioned. VSS, no new changes.
--- NOTE | 2019-11-11 07:13 | NUR ---
NURSE NOTES: Received patient from Escobar ROBLEDO. Patient is awake, alert and oriented x2. Sinus Rhythm on the heart monitor, HR 76. Receiving oxygen via ET Tube 7.5 21cm at the lip line, vent settings: AC 16, TV 600, FiO2 40%. IV site is Right IJ TLC, patent and asymptomatic. Gtube is intact and receiving Glucerna 1.5 at 50cc/hr. Patel catheter is intact and draining. Bed is locked, placed in lowest position, side rails up x3, bed alarm on, call light within reach. Will continue to monitor.
--- NOTE | 2019-11-11 07:20 | NUR ---
HAND-OFF: Report given to Romario ROBLEDO.
--- NOTE | 2019-11-11 08:30 | NUR ---
NURSE NOTES: Medications given as prescribed, no adverse reactions noted. Patient turned and repositioned, oral care given, endotracheal suction done. Patient showing no signs of distress. Will continue to monitor.
[2019-11-11] MEDS: Amiodarone 200mg tab PEG SCH (08:35)
[2019-11-11] MEDS: Pantoprazole Inj IVP SCH (08:36)
[2019-11-11] MEDS: Heparin 5000 units/ml inj SUBQ SCH ×2 (08:37→21:23)
--- NOTE | 2019-11-11 09:59 | Infectious Diseases Prog Note ---
Assessment/Plan Assessment/Plan A: Afebrile Leukocytosis, neutrophil predominant, recurrent -11/08 Cdiff neg Septic shock, sp off of pressors PNA- persistent infiltrates, hypoxia- will send 2nd COVID 19 test (patient also from [place]) Influenza A, sp rx SARS CoV PCR negative x1 11/09 CXR: Persistent basilar predominant interstitial and airspace infiltrates. Edema and infection are again both possibilities. Also consider superimposed malignancy, particularly given infusion ports. CXR: Bilateral mostly nodular mostly interstitial disease, as described. This could represent interstitial pneumonia or edema, among many other possibilities. However, given the nodular appearance and the presence of an infusion catheter the possibility of nodular metastatic disease should also be considered. Unlikely UTI UA 10-15 WBC UCx: NG VRE bacteremia 10/29 BCx: VRE; 10/31 Bcx neg 10/29 TTE: focal AV sclerosis with adequate cusp excursion. thickened MV leaflets with normal excursion. mild mitral annulus and aortic root calcification. normal TV. no MR. mild TR. PV not visualized. QTc 552 Afib COPD Hypothyroid Dyslipidemia HTN DM Anemia CVA G tube, h/o abscess complication head and neck cancer Plan: Linezolid #10/14 / Tamiflu #5 11/03 DC amikacin and ertapenem #4 11/01 SP Vanc #3 monitor temp and CBC monitor resp status isolation precaution per hospital protocol (will resumed COVID19 precautions) send 2nd COVID19 test f/u bcx TTE without severe valve insufficiency and bacteremia low grade. recommend repeating bcx at end of therapy to ensure resolution of bacteremia. If has recurrent fevers, will recommend ILENE. WENDI RN Thank you for this consult. [facility] Will continue to follow the patient with you. Subjective Allergies: Coded Allergies: No Known Allergies (Unverified , 10/30/19) Subjective afebrile leukocytosis to 18 remains intubated; on 40% Fio2, no PEEP; hypoxic on ABG P02 60 Objective Vital Signs Last 24 Hour Vital Signs Date Time Temp Pulse Resp B/P (MAP) Pulse Ox O2 Delivery O2 Flow Rate FiO2 11/11/19 08:50 83 16 40 11/11/19 08:00 89 17 105/63 (77) 100 11/11/19 08:00 Mechanical Ventilator 11/11/19 08:00 40 4/13/20 07:11 78 16 40 11/11/19 07:00 74 16 92/56 (68) 100 11/11/19 06:30 88 18 11/11/19 06:00 75 16 86/55 (65) 100 11/11/19 05:00 74 16 84/52 (63) 98 11/11/19 04:00 88 11/11/19 04:00 40 11/11/19 04:00 99.1 90 18 108/64 (79) 100 11/11/19 04:00 Mechanical Ventilator 11/11/19 03:30 95 17 50 11/11/19 03:00 86 17 90/57 (68) 91 11/11/19 02:00 84 18 94/53 (67) 100 11/11/19 01:00 86 16 86/55 (65) 100 11/11/19 00:00 63 11/11/19 00:00 Mechanical Ventilator 11/11/19 00:00 92 18 105/57 (73) 96 11/11/19 00:00 40 11/10/19 23:01 92 17 50 11/10/19 23:00 92 17 93/55 (68) 96 11/10/19 22:00 89 17 92/58 (69) 96 11/10/19 21:00 95 20 92/62 (72) 93 11/10/19 20:00 76 11/10/19 20:00 Mechanical Ventilator 11/10/19 20:00 88 16 100/62 (75) 94 11/10/19 20:00 40 11/10/19 19:47 101/60 11/10/19 19:10 88 16 50 11/10/19 19:00 85 17 101/60 (74) 96 11/10/19 18:00 82 16 101/64 (76) 95 11/10/19 17:00 82 22 96/52 (67) 99 11/10/19 16:42 79 16 50 11/10/19 16:00 98.4 78 17 96/49 (65) 94 11/10/19 16:00 78 11/10/19 16:00 50 11/10/19 16:00 Mechanical Ventilator 11/10/19 15:00 74 17 97/52 (67) 95 11/10/19 14:00 71 16 94/54 (67) 97 11/10/19 13:00 67 16 92/53 (66) 98 11/10/19 12:43 72 17 40 11/10/19 12:00 40 11/10/19 12:00 98.2 64 16 111/54 (73) 100 11/10/19 12:00 67 11/10/19 12:00 Mechanical Ventilator 11/10/19 11:00 67 16 85/51 (62) 97 11/10/19 10:00 69 16 89/55 (66) 97 Height (Feet): 6 Height (Inches): 1.00 Weight (Pounds): 149 Objective Gen: NAD. intubated. HEENT: ETT. CV: S1+S2. no rubs or gallop Resp: coarse. regular. equal chest rise. no wheezes Abd: soft. G tube. nondistended. Skin: warm. dry. Neuro: awake. follows simple commands. calm Microbiology Date/Time Source Procedure Growth Status 11/09/19 22:00 Stool Clostridium difficile Toxin Assay - Final Complete Laboratory Tests Test 11/11/19 04:00 11/11/19 07:40 White Blood Count 18.2 K/UL (4.8-10.8) #H Red Blood Count 3.48 M/UL (4.70-6.10) L Hemoglobin 9.8 G/DL (14.2-18.0) L Hematocrit 29.5 % (42.0-52.0) L Mean Corpuscular Volume 85 FL (80-99) Mean Corpuscular Hemoglobin 28.0 PG (27.0-31.0) Mean Corpuscular Hemoglobin Concent 33.1 G/DL (32.0-36.0) Red Cell Distribution Width 15.9 % (11.6-14.8) H Platelet Count 333 K/UL (150-450) Mean Platelet Volume 4.5 FL (6.5-10.1) L Neutrophils (%) (Auto) % (45.0-75.0) Lymphocytes (%) (Auto) % (20.0-45.0) Monocytes (%) (Auto) % (1.0-10.0) Eosinophils (%) (Auto) % (0.0-3.0) Basophils (%) (Auto) % (0.0-2.0) Differential Total Cells Counted 100 Neutrophils % (Manual) 77 % (45-75) H Lymphocytes % (Manual) 18 % (20-45) L Monocytes % (Manual) 5 % (1-10) Eosinophils % (Manual) 0 % (0-3) Basophils % (Manual) 0 % (0-2) Band Neutrophils 0 % (0-8) Platelet Estimate Adequate Platelet Morphology Normal Hypochromasia 2+ Anisocytosis 1+ Sodium Level 141 MMOL/L (136-145) Potassium Level 4.8 MMOL/L (3.5-5.1) Chloride Level 106 MMOL/L (98-107) Carbon Dioxide Level 29 MMOL/L (21-32) Blood Urea Nitrogen 19 mg/dL (7-18) H Creatinine 1.0 MG/DL (0.55-1.30) Estimat Glomerular Filtration Rate > 60 mL/min (>60) Glucose Level 84 MG/DL (74-106) Calcium Level 7.7 MG/DL (8.5-10.1) L Arterial Blood pH 7.474 (7.350-7.450) Arterial Blood Partial Pressure CO2 29.7 mmHg (35.0-45.0) L Arterial Blood Partial Pressure O2 60.3 mmHg (75.0-100.0) L Arterial Blood HCO3 21.3 mmol/L (22.0-26.0) L Arterial Blood Oxygen Saturation 91.4 % (95-100) L Arterial Blood Base Excess -1.6 (-2-2) Ty Test Positive Current Medications Medications (Trade) Dose Ordered Sig/Tasha Route PRN Reason Start Time Stop Time Status Last Admin Dose Admin Acetaminophen (Tylenol) 650 mg Q4H PRN ORAL fever 10/30/19 11:15 11/29/19 11:14 11/10/19 19:43 Albuterol/ Ipratropium (Albuterol/ Ipratropium) 3 ml Q4H PRN HHN sob 11/10/19 08:45 11/15/19 08:44 Amiodarone HCl (Cordarone) 100 mg DAILY PEG 11/04/19 09:00 01/29/20 08:59 11/11/19 08:35 Chlorhexidine Gluconate (Megan-Hex 2%) 1 applic DAILY@1999 TOPIC 11/01/19 20:00 01/30/20 19:59 11/10/19 19:42 Heparin Sodium (Porcine) (Heparin 5000 units/ml) 5,000 units EVERY 12 HOURS SUBQ 11/02/19 09:00 12/17/19 08:59 11/11/19 08:37 Levothyroxine Sodium (Synthroid) 50 mcg DAILY@0630 GT 10/31/19 06:30 11/30/19 06:29 11/11/19 05:36 Linezolid 300 ml @ 300 mls/hr Q12HR IVPB 11/02/19 13:30 11/15/19 23:59 11/11/19 08:36 Lorazepam (Ativan 2mg/ml 1ml) 2 mg Q2HR PRN IV For Anxiety 11/06/19 22:30 11/13/19 22:29 11/11/19 05:35 Norepinephrine Bitartrate 4 mg/ Dextrose 254 ml @ 0 mls/hr Q24H IV 10/30/19 22:00 11/29/19 21:59 11/01/19 23:54 Ondansetron HCl (Zofran) 4 mg Q6H PRN IVP Nausea & Vomiting 10/30/19 11:15 11/29/19 11:14 Pantoprazole (Protonix) 40 mg DAILY IVP 10/31/19 09:00 11/30/19 08:59 11/11/19 08:36 Polyethylene Glycol (Miralax) 17 gm DAILYPRN PRN ORAL Constipation 10/30/19 11:15 11/29/19 11:14 Quetiapine Fumarate (SEROqueL) 100 mg Q12HR GT 10/30/19 23:00 12/14/19 22:59 11/11/19 08:35 Daphne Sy M.D. Nov 11, 2019 09:59
--- NOTE | 2019-11-11 11:20 | Diagnostic Imaging Report ---
Indication: Shortness of breath Technique: One view of the chest Comparison: 11/10/2019 Findings: Bilateral hazy airspace and nodular interstitial opacities persist, largely unchanged. Stable satisfactory position of endotracheal tube and right chest port catheter Impression: Unchanged, over one day, findings as above.
--- NOTE | 2019-11-11 12:12 | Pulmonolgy Critical Care Note ---
Critical Care - Asmt/Plan Problems: (1) Acute respiratory failure (2) Septic shock (3) Enterococcal bacteremia (4) Nosocomial pneumonia (5) COPD (chronic obstructive pulmonary disease) (6) Suspected 2019-nCoV infection (7) Atrial fibrillation (8) Severe anemia (9) Hypothyroidism (10) Psychosis Respiratory: monitor respiratory rate, adjust FIO2 Cardiac: continue to monitor HR/BP Renal: F/U I&O, keep IV fluid, check electrolytes Gastrointestinal: continue feedings/current rate Endocrine: monitor blood sugar Hematologic: monitor H/H Neurologic: PRN Morphine Prophylaxis: Protonix Notes Reviewed: cardio Discussed with: consultants, telephonic case managerbaccarat manager - Objective Last 24 Hour Vital Signs Date Time Temp Pulse Resp B/P (MAP) Pulse Ox O2 Delivery O2 Flow Rate FiO2 11/11/19 11:10 84 16 40 11/11/19 11:00 85 16 90/56 (67) 99 11/11/19 10:00 89 19 94/66 (75) 100 11/11/19 09:00 85 17 88/61 (70) 100 11/11/19 08:50 83 16 40 11/11/19 08:03 88 11/11/19 08:00 98.6 89 17 105/63 (77) 100 11/11/19 08:00 Mechanical Ventilator 11/11/19 08:00 40 11/11/19 07:11 78 16 40 11/11/19 07:00 74 16 92/56 (68) 100 11/11/19 06:30 88 18 11/11/19 06:00 75 16 86/55 (65) 100 11/11/19 05:00 74 16 84/52 (63) 98 11/11/19 04:00 88 11/11/19 04:00 40 11/11/19 04:00 99.1 90 18 108/64 (79) 100 11/11/19 04:00 Mechanical Ventilator 11/11/19 03:30 95 17 50 11/11/19 03:00 86 17 90/57 (68) 91 11/11/19 02:00 84 18 94/53 (67) 100 11/11/19 01:00 86 16 86/55 (65) 100 11/11/19 00:00 63 11/11/19 00:00 Mechanical Ventilator 11/11/19 00:00 92 18 105/57 (73) 96 11/11/19 00:00 40 11/10/19 23:01 92 17 50 11/10/19 23:00 92 17 93/55 (68) 96 11/10/19 22:00 89 17 92/58 (69) 96 11/10/19 21:00 95 20 92/62 (72) 93 11/10/19 20:00 76 11/10/19 20:00 Mechanical Ventilator 11/10/19 20:00 88 16 100/62 (75) 94 11/10/19 20:00 40 11/10/19 19:47 101/60 11/10/19 19:10 88 16 50 11/10/19 19:00 85 17 101/60 (74) 96 11/10/19 18:00 82 16 101/64 (76) 95 11/10/19 17:00 82 22 96/52 (67) 99 11/10/19 16:42 79 16 50 11/10/19 16:00 98.4 78 17 96/49 (65) 94 11/10/19 16:00 78 11/10/19 16:00 50 11/10/19 16:00 Mechanical Ventilator 11/10/19 15:00 74 17 97/52 (67) 95 11/10/19 14:00 71 16 94/54 (67) 97 11/10/19 13:00 67 16 92/53 (66) 98 11/10/19 12:43 72 17 40 Status: sedated Condition: critical HEENT: atraumatic Neck: full ROM Lungs: rales, rhonchi Heart: HR/BP stable Abdomen: soft, active bowel sounds Extremities: no C/C/E, edema Decubiti: stage Micro: Microbiology Date/Time Source Procedure Growth Status 11/09/19 22:00 Stool Clostridium difficile Toxin Assay - Final Complete Critical Care - Subjective ROS Limited/Unobtainable: Yes Condition: critical EKG Rhythm: Sinus Rhythm FI02: 40 Vent Support Breath Rate: 16 Vent Support Mode: AC Vent Tidal Volume: 600 Sputum Amount: Moderate PEEP: 0.0 PIP: 33 Tube Feeding Amount: 50 I&O: Intake and Output 11/10/19 11/11/19 19:00 07:00 Intake Total 1020 ml 810 ml Output Total 980 ml 520 ml Balance 40 ml 290 ml Intake Free Water 120 ml 60 ml IV Total 300 ml 300 ml Tube Feeding 600 ml 450 ml Output Urine Total 680 ml 520 ml Stool Total 300 ml CXR: no change, ET in good position ET-Tube: 7.5 ET Position: 21 Labs: Laboratory Tests Test 11/11/19 04:00 11/11/19 07:40 White Blood Count 18.2 K/UL (4.8-10.8) #H Red Blood Count 3.48 M/UL (4.70-6.10) L Hemoglobin 9.8 G/DL (14.2-18.0) L Hematocrit 29.5 % (42.0-52.0) L Mean Corpuscular Volume 85 FL (80-99) Mean Corpuscular Hemoglobin 28.0 PG (27.0-31.0) Mean Corpuscular Hemoglobin Concent 33.1 G/DL (32.0-36.0) Red Cell Distribution Width 15.9 % (11.6-14.8) H Platelet Count 333 K/UL (150-450) Mean Platelet Volume 4.5 FL (6.5-10.1) L Neutrophils (%) (Auto) % (45.0-75.0) Lymphocytes (%) (Auto) % (20.0-45.0) Monocytes (%) (Auto) % (1.0-10.0) Eosinophils (%) (Auto) % (0.0-3.0) Basophils (%) (Auto) % (0.0-2.0) Differential Total Cells Counted 100 Neutrophils % (Manual) 77 % (45-75) H Lymphocytes % (Manual) 18 % (20-45) L Monocytes % (Manual) 5 % (1-10) Eosinophils % (Manual) 0 % (0-3) Basophils % (Manual) 0 % (0-2) Band Neutrophils 0 % (0-8) Platelet Estimate Adequate Platelet Morphology Normal Hypochromasia 2+ Anisocytosis 1+ Sodium Level 141 MMOL/L (136-145) Potassium Level 4.8 MMOL/L (3.5-5.1) Chloride Level 106 MMOL/L (98-107) Carbon Dioxide Level 29 MMOL/L (21-32) Blood Urea Nitrogen 19 mg/dL (7-18) H Creatinine 1.0 MG/DL (0.55-1.30) Estimat Glomerular Filtration Rate > 60 mL/min (>60) Glucose Level 84 MG/DL (74-106) Calcium Level 7.7 MG/DL (8.5-10.1) L Arterial Blood pH 7.474 (7.350-7.450) Arterial Blood Partial Pressure CO2 29.7 mmHg (35.0-45.0) L Arterial Blood Partial Pressure O2 60.3 mmHg (75.0-100.0) L Arterial Blood HCO3 21.3 mmol/L (22.0-26.0) L Arterial Blood Oxygen Saturation 91.4 % (95-100) L Arterial Blood Base Excess -1.6 (-2-2) Ty Test Positive Jackie Kaiser MD Nov 11, 2019 12:12
--- NOTE | 2019-11-11 14:19 | NUR ---
RADIOLOGY DEPT., CHEST X-RAY DONE.-P.DYE
[2019-11-11 15:09] LABS: APPEARANCE,URINE CLEAR; BILIRUBIN, URINE NEGATIVE (NEGATIVE); GLUCOSE, URINE (UA) NEGATIVE (NEGATIVE); KETONES,URINE NEGATIVE (NEGATIVE); LEUKOCYTE ESTERASE ,URINE NEGATIVE (NEGATIVE); NITRITE,URINE NEGATIVE (NEGATIVE); PH,URINE 7 (4.5-8.0); PROTEIN,URINE 1+ (NEGATIVE); UROBILINOGEN,URINE NORMAL MG/DL (0.0-1.0)
[2019-11-11 15:11] LABS: COLOR,URINE YELLOW
--- NOTE | 2019-11-11 16:47 | NUR ---
CASE MANAGEMENT: REVIEW 11/11/19 SI: RESP FAILURE . PNA . INFLUENZA . VRE (+) BACTEREMIA 98.5 81 16 93/57 100% MECH VENT FIO2 40 WBC 18.2 H/H 9.8/29.5 CA+7.7 ABG: pH 7.474 pCO2 29.7 pO2 60.3 HCO3-21.3 O2 SAT 91.4 IS:IV LEVOPHED Q24HR AMIODARONE GT QD IV ZYVOX BID IV PROTONIX QD SEROQUEL GT BID HEPARIN SQ BID SYNTHROID GT QAM AYANA-HEX 2% TP QD GTUBE FEEDING DROPLET ISOLATION CHEST X-RAY- Bilateral hazy airspace and nodular interstitial opacities persist, largely unchanged. ICU STATUS DCP: PATIENT [facility]: NON-VIOLENT RESTRAINTS MONITORING MONITOR RESPIRATORY RATE ADJUST FiO2 CXR THIS AM WBC CHANGE COLLECT FOR URINE CX- COLLECT FOR BLOOD CX- REPEAT COVID-19
--- NOTE | 2019-11-11 18:00 | NUR ---
NURSE NOTES: Bed bath given to patient, turned and repositioned, oral care given.
--- NOTE | 2019-11-11 18:37 | Internal Med Progress Note ---
Subjective Date of Service: Nov 11, 2019 Physician Name KarolinaGallito Attending Physician Danny Stark MD Current Medications Medications (Trade) Dose Ordered Sig/Tasha Route PRN Reason Start Time Stop Time Status Last Admin Dose Admin Acetaminophen (Tylenol) 650 mg Q4H PRN ORAL fever 10/30/19 11:15 11/29/19 11:14 11/10/19 19:43 Albuterol/ Ipratropium (Albuterol/ Ipratropium) 3 ml Q4H PRN HHN sob 11/10/19 08:45 11/15/19 08:44 Amiodarone HCl (Cordarone) 100 mg DAILY PEG 11/04/19 09:00 01/29/20 08:59 11/11/19 08:35 Chlorhexidine Gluconate (Megan-Hex 2%) 1 applic DAILY@2000 TOPIC 11/01/19 20:00 01/30/20 19:59 11/10/19 19:42 Heparin Sodium (Porcine) (Heparin 5000 units/ml) 5,000 units EVERY 12 HOURS SUBQ 11/02/19 09:00 12/17/19 08:59 11/11/19 08:37 Levothyroxine Sodium (Synthroid) 50 mcg DAILY@0630 GT 10/31/19 06:30 11/30/19 06:29 11/11/19 05:36 Linezolid 300 ml @ 300 mls/hr Q12HR IVPB 11/02/19 13:30 11/15/19 23:59 11/11/19 08:36 Lorazepam (Ativan 2mg/ml 1ml) 2 mg Q2HR PRN IV For Anxiety 11/06/19 22:30 11/13/19 22:29 11/11/19 05:35 Norepinephrine Bitartrate 4 mg/ Dextrose 254 ml @ 0 mls/hr Q24H IV 10/30/19 22:00 11/29/19 21:59 11/01/19 23:54 Ondansetron HCl (Zofran) 4 mg Q6H PRN IVP Nausea & Vomiting 10/30/19 11:15 11/29/19 11:14 Pantoprazole (Protonix) 40 mg DAILY IVP 10/31/19 09:00 11/30/19 08:59 11/11/19 08:36 Polyethylene Glycol (Miralax) 17 gm DAILYPRN PRN ORAL Constipation 10/30/19 11:15 11/29/19 11:14 Quetiapine Fumarate (SEROqueL) 100 mg Q12HR GT 10/30/19 23:00 12/14/19 22:59 11/11/19 08:35 Allergies: Coded Allergies: No Known Allergies (Unverified , 10/30/19) ROS Limited/Unobtainable: Yes Subjective 73 YO M with history of esophageal cancer admitted with respiratory failure. Cover for Int Med-Dr Stark. ICU. Intubted and sedated. Objective Last Vital Signs Date Time Temp Pulse Resp B/P (MAP) Pulse Ox O2 Delivery O2 Flow Rate FiO2 11/11/19 17:19 88 20 40 11/11/19 16:00 Mechanical Ventilator 11/11/19 16:00 98.0 107/81 (90) 100 Laboratory Tests Test 11/11/19 04:00 11/11/19 07:40 11/11/19 10:00 11/11/19 13:30 White Blood Count 18.2 K/UL (4.8-10.8) #H Red Blood Count 3.48 M/UL (4.70-6.10) L Hemoglobin 9.8 G/DL (14.2-18.0) L Hematocrit 29.5 % (42.0-52.0) L Mean Corpuscular Volume 85 FL (80-99) Mean Corpuscular Hemoglobin 28.0 PG (27.0-31.0) Mean Corpuscular Hemoglobin Concent 33.1 G/DL (32.0-36.0) Red Cell Distribution Width 15.9 % (11.6-14.8) H Platelet Count 333 K/UL (150-450) Mean Platelet Volume 4.5 FL (6.5-10.1) L Neutrophils (%) (Auto) % (45.0-75.0) Lymphocytes (%) (Auto) % (20.0-45.0) Monocytes (%) (Auto) % (1.0-10.0) Eosinophils (%) (Auto) % (0.0-3.0) Basophils (%) (Auto) % (0.0-2.0) Differential Total Cells Counted 100 Neutrophils % (Manual) 77 % (45-75) H Lymphocytes % (Manual) 18 % (20-45) L Monocytes % (Manual) 5 % (1-10) Eosinophils % (Manual) 0 % (0-3) Basophils % (Manual) 0 % (0-2) Band Neutrophils 0 % (0-8) Platelet Estimate Adequate Platelet Morphology Normal Hypochromasia 2+ Anisocytosis 1+ Sodium Level 141 MMOL/L (136-145) Potassium Level 4.8 MMOL/L (3.5-5.1) Chloride Level 106 MMOL/L (98-107) Carbon Dioxide Level 29 MMOL/L (21-32) Blood Urea Nitrogen 19 mg/dL (7-18) H Creatinine 1.0 MG/DL (0.55-1.30) Estimat Glomerular Filtration Rate > 60 mL/min (>60) Glucose Level 84 MG/DL (74-106) Calcium Level 7.7 MG/DL (8.5-10.1) L Arterial Blood pH 7.474 (7.350-7.450) Arterial Blood Partial Pressure CO2 29.7 mmHg (35.0-45.0) L Arterial Blood Partial Pressure O2 60.3 mmHg (75.0-100.0) L Arterial Blood HCO3 21.3 mmol/L (22.0-26.0) L Arterial Blood Oxygen Saturation 91.4 % (95-100) L Arterial Blood Base Excess -1.6 (-2-2) Ty Test Positive Free Prostate Specific Antigen Pending Percent Free Prostate Specific Ag Pending Prostate Specific Antigen Total Pending Urine Color Yellow Urine Appearance Clear Urine pH 7 (4.5-8.0) Urine Specific [place] 1.010 (1.005-1.035) Urine Protein 1+ (NEGATIVE) H Urine Glucose (UA) Negative (NEGATIVE) Urine Ketones Negative (NEGATIVE) Urine Blood Negative (NEGATIVE) Urine Nitrite Negative (NEGATIVE) Urine Bilirubin Negative (NEGATIVE) Urine Urobilinogen Normal MG/DL (0.0-1.0) Urine Leukocyte Esterase Negative (NEGATIVE) Urine RBC 0-2 /HPF (0 - 0) H Urine WBC 0-2 /HPF (0 - 0) Urine Squamous Epithelial Cells None /LPF (NONE/OCC) Urine Bacteria Few /HPF (NONE) Urine Yeast Moderate /HPF (NONE) H Microbiology Date/Time Source Procedure Growth Status 11/09/19 22:00 Stool Clostridium difficile Toxin Assay - Final Complete Intake and Output 11/10/19 11/11/19 19:00 07:00 Intake Total 1020 ml 810 ml Output Total 980 ml 520 ml Balance 40 ml 290 ml Intake Free Water 120 ml 60 ml IV Total 300 ml 300 ml Tube Feeding 600 ml 450 ml Output Urine Total 680 ml 520 ml Stool Total 300 ml Objective PHYSICAL EXAMINATION: VITAL SIGNS: Temperature 98.1, respirations 25, pulse 92, blood pressure 95/59. GENERAL: The patient is well-developed, well-nourished male, who is intubated and sedated. HEENT: Eyes, pupils are equal and responsive to light and accommodation. Extraocular movements are intact. NECK: Supple without lymphadenopathy. CHEST: Mech vent; Coarse mechanical breath sounds bilaterally without wheezes or rales. CARDIOVASCULAR: Regular rhythm and rate. S1, S2 are normal without murmurs, rubs, or gallops. ABDOMEN: Soft, nontender, and nondistended. Positive bowel sounds. No evidence of hepatosplenomegaly. Currently, no rebound or guarding noted. EXTREMITIES: Negative for clubbing, cyanosis, or edema. RECTAL/GENITAL: Not performed. NEUROLOGICAL: Unable to assess. Assessment/Plan Assessment/Plan ASSESSMENT: This is a 73-year-old male. 1. Respiratory failure. 2. Pneumonia. 3. Esophageal cancer. 4. Diabetes type 2. 5. Hypertension. 6. Hypercholesterolemia. 7. Atrial fibrillation. 8. Hypothyroidism. 9. Dysphagia. 10. History of prostate cancer. 11. Sepsis=Enterococcus (VRE) TREATMENT: 1. Pneumonia/respiratory failure. A Pulmonary consultation has been obtained with Dr. Jackie Kaiser. An Infectious Disease consultation has been obtained with Dr. Yifan Rivera. We will follow recommendations of Infectious Disease and Pulmonary. COVID 19=neg 2. Esophageal cancer. 3. Diabetes type 2. A NovoLog sliding scale has been instituted. 4. Hypertension. The patient is currently hypotensive and probable sepsis. 5. Hypercholesterolemia. Continue atorvastatin as above. 6. Atrial fibrillation. Continue amiodarone as above. 7. Hypothyroidism. Continue levothyroxine as above. 8. Dysphagia, status post PEG placement. 9. History of prostate cancer. 10. ABX = linezolid. Gallito Turcios MD Nov 11, 2019 18:37
--- NOTE | 2019-11-11 19:33 | NUR ---
HAND-OFF: Report given to Ammy ROBLEDO.
--- NOTE | 2019-11-11 19:34 | NUR ---
NURSE NOTES: Endorsement received from VENKAT Doss. Patient awake and confused. Makes eye contact. Orally intubated with 7.5, 21 lipline. AC 16, 600, 40%. GT patent and intact. On Glucerna 1.5 at 50ml/hr. No residual. Patel catheter inplace. Rectal tube present. Noted with brown liquid stool in the bag and rectal tube. On P200 mattress. Head of bed elevated. BEd locked and in low position. Call light within reach.
[2019-11-11] MEDS: Dyna-Hex 2% Top Sol 2oz TOPIC SCH (21:22)
--- NOTE | 2019-11-11 21:30 | NUR ---
NURSE NOTES: Patient restless. Keeps on scooting down and attempting to pull out tubings. Reoriented, PRN ativan given.
--- NOTE | 2019-11-11 22:00 | NUR ---
NURSE NOTES: Patient asleep at this time. Calm and comfortable. Restraints discontinued. Will continue to monitor.
[2019-11-12] VITALS (24 sets, daily range): BP systolic 87–127; BP diastolic 47–86
--- NOTE | 2019-11-12 | NUR ---
NURSE NOTES: Patient awake, impulsive and non compliant. Reoriented and redirected. Explained not to attempt to pull out tubings, interventions are ineffective. Restraints reapplied.
--- NOTE | 2019-11-12 02:00 | NUR ---
NURSE NOTES: Secretions suctioned, noted with copious, thick light brown secretion. Oral care done.
--- NOTE | 2019-11-12 04:00 | NUR ---
NURSE NOTES: Patient asleep. Afebrile. No acute changes.
--- NOTE | 2019-11-12 05:00 | NUR ---
NURSE NOTES: Bed bath, oral care, change of linens done.
[2019-11-12 05:37] LABS: BASOPHILS % (AUTO) 0.5 % (0.0-2.0); EOSINOPHILS % (AUTO) 1.7 % (0.0-3.0); HEMATOCRIT 28.6 % (42.0-52.0); HEMOGLOBIN 9.5 G/DL (14.2-18.0); LYMPHOCYTES % (AUTO) 10.2 % (20.0-45.0); MEAN CORPUSCULAR VOLUME 85 FL (80-99); MONOCYTES % (AUTO) 4.8 % (1.0-10.0); NEUTROPHILS % (AUTO) 82.9 % (45.0-75.0); PLATELET COUNT 293 K/UL (150-450); RED BLOOD COUNT 3.35 M/UL (4.70-6.10); WHITE BLOOD COUNT 16.3 K/UL (4.8-10.8)
[2019-11-12 06:17] LABS: ALANINE AMINOTRANSFERASE 100 U/L (12-78); ALBUMIN 2.1 G/DL (3.4-5.0); ALBUMIN/GLOBULIN RATIO 0.5 (1.0-2.7); ALKALINE PHOSPHATASE 206 U/L (46-116); ANION GAP 7 mmol/L (5-15); ASPARTATE AMINO TRANSFERASE 94 U/L (15-37); BILIRUBIN,TOTAL 0.2 MG/DL (0.2-1.0); BLOOD UREA NITROGEN 20 mg/dL (7-18); CALCIUM 8.3 MG/DL (8.5-10.1); CARBON DIOXIDE 26 MMOL/L (21-32); CHLORIDE 106 MMOL/L (98-107); POTASSIUM 4.5 MMOL/L (3.5-5.1); SODIUM 139 MMOL/L (136-145)
[2019-11-12 06:22] LABS: PHOSPHORUS 2.5 MG/DL (2.5-4.9)
--- NOTE | 2019-11-12 07:19 | NUR ---
HAND-OFF: Report given to VENKAT Thao.
--- NOTE | 2019-11-12 07:20 | NUR ---
NURSE NOTES: Pt received from VENKAT Paez. Pt opens eyes spontaneously, pupils are equal and round 3 mm bilat with sluggish light rxn. Pt noted in SR to monitoring specialist. Bilat radial pulses and dorsalis pedis pulses 2+ bilaterally. 1+ pitting edema noted to bilat hands. Pt is mechanically intubated with 7.5 ETT noted 21 cm at the lip with the following settings: AC 16, TV 600, FiO2 40% without peep. GT noted running Glucerna 1.5 at 50 cc/hr without gastric residuals. Abd is round and soft with active bowel sounds to all quadrants. Bilat upper lung lobes noted with rhonchi and lower lung lobes noted diminished upon auscultation. Pt has a logan draining yellow urine. Skin alterations noted. Pt on YANY mattress. Pt has a Right femoral TLC with dry and intact dressing running NS TKO at 5 cc/hr. 3D SPECIALIST restraints noted, bilat radial pulses are palpable (2+ bilaterally), skin to both wrists intact without redness. Bed is in lowest position, alarm on, side rails up x 3, call light within reach. No acute distress noted. Will continue with plan of care.
[2019-11-12] MEDS: LORazepam Inj 2mg/ml 1ml IV PRN (07:58)
[2019-11-12] MEDS: Pantoprazole Inj IVP SCH (08:00)
[2019-11-12] MEDS: Amiodarone 200mg tab PEG SCH (08:01)
[2019-11-12] MEDS: Heparin 5000 units/ml inj SUBQ SCH ×2 (08:02→20:25)
--- NOTE | 2019-11-12 08:58 | NUR ---
RD ASSESSMENT & RECOMMENDATIONS SEE CARE ACTIVITY FOR COMPLETE ASSESSMENT DAILY ESTIMATED NEEDS: Needs based on CRITICAL CARE/ 66kg 22-28 kcals/kg 0162-2579 total kcals 1.2-2 g protein/kg 79-132 g total protein 25-30 mL/kg 8045-3506 total fluid mLs NUTRITION DIAGNOSIS: Swallowing difficulty R/T dysphagia as evidenced by PEG dep, s/p oral intubation, pressor support now held. CURRENT TF: Glucerna 1.5 @ 50 ml/hr x 22 hrs ( on Synthroid QD) ENTERAL NUTRITION RECOMMENDATIONS: Glucerna 1.5 @ 50ml/hr x 22 hrs (hold 1 hr before and after Synthroid) to provide 1100ml, 1650kcal, 91g prot, 835ml free water * Maintain current TF as tolerated to meet 100% est kcal and pro needs. * HOB over 30 degrees/ water flush per MD * Hold 1 hr before and after Synthroid med. ADDITIONAL RECOMMENDATIONS: * Per [facility]: HT=66" TI=433# (as of 10/18) -> rec calibrated bedscale wt * Consider bedside BG testing: h/o DM -> Monitor need for NISS * Check lytes daily, replete as needed .
--- NOTE | 2019-11-12 09:37 | Diagnostic Imaging Report ---
Indication: Shortness of breath Technique: One view of the chest Comparison: 11/11/2019 Findings: Bilateral diffuse interstitial and airspace infiltrates are unchanged. Stable satisfactory position of endotracheal tube and right jugular port catheter. The heart size is normal. Impression: Unchanged, over one day, findings as above.
--- NOTE | 2019-11-12 10:00 | NUR ---
NURSE NOTES: Pt repositioned, no distress noted.
--- NOTE | 2019-11-12 10:05 | NUR ---
RADIOLOGY DEPT., CHEST X-RAY DONE.-P.DYE
--- NOTE | 2019-11-12 10:50 | Infectious Diseases Prog Note ---
Assessment/Plan Assessment/Plan A: Afebrile Leukocytosis, neutrophil predominant, recurrent; improving -11/10 u/a neg; ucx NTD -11/08 Cdiff neg Septic shock, sp off of pressors PNA- persistent infiltrates, hypoxia- will send 2nd COVID 19 test (patient also from [place]) Influenza A, sp rx SARS CoV PCR negative x1 11/11 CXR: Bilateral diffuse interstitial and airspace infiltrates are unchanged.Stable satisfactory position of endotracheal tube and right jugular port catheter.The heart size is normal. 11/09 CXR: Persistent basilar predominant interstitial and airspace infiltrates. Edema and infection are again both possibilities. Also consider superimposed malignancy, particularly given infusion ports. CXR: Bilateral mostly nodular mostly interstitial disease, as described. This could represent interstitial pneumonia or edema, among many other possibilities. However, given the nodular appearance and the presence of an infusion catheter the possibility of nodular metastatic disease should also be considered. Unlikely UTI UA 10-15 WBC UCx: NG VRE bacteremia 10/29 BCx: VRE; 10/31 Bcx neg 10/29 TTE: focal AV sclerosis with adequate cusp excursion. thickened MV leaflets with normal excursion. mild mitral annulus and aortic root calcification. normal TV. no MR. mild TR. PV not visualized. QTc 552 Afib COPD Hypothyroid Dyslipidemia HTN DM Anemia CVA G tube, h/o abscess complication head and neck cancer Plan: Linezolid #06/13 4/6 Tamiflu #5 4/6 DC amikacin and ertapenem #4 / SP Vanc #3 monitor temp and CBC monitor resp status isolation precaution per hospital protocol (will resumed COVID19 precautions) f/u 2nd COVID19 test f/u bcx TTE without severe valve insufficiency and bacteremia low grade. recommend repeating bcx at end of therapy to ensure resolution of bacteremia. If has recurrent fevers, will recommend ILENE. WENDI RN Thank you for this consult. [facility] Will continue to follow the patient with you. Subjective Allergies: Coded Allergies: No Known Allergies (Unverified , 10/30/19) Subjective afebrile leukocytosis improving remains intubated; on 40% Fio2, no PEEP PO2 on ABG improving Objective Vital Signs Last 24 Hour Vital Signs Date Time Temp Pulse Resp B/P (MAP) Pulse Ox O2 Delivery O2 Flow Rate FiO2 11/12/19 10:00 82 16 91/54 (66) 100 11/12/19 09:20 79 16 40 11/12/19 09:00 83 16 88/49 (62) 100 11/12/19 08:00 99.4 91 18 127/86 (100) 100 11/12/19 08:00 40 11/12/19 08:00 Mechanical Ventilator 11/12/19 08:00 88 11/12/19 07:00 94 20 113/60 (77) 100 11/12/19 06:59 96 20 40 11/12/19 06:20 92 18 11/12/19 06:00 91 18 115/60 (78) 100 11/12/19 05:00 92 19 90/56 (67) 99 11/12/19 04:00 Mechanical Ventilator 11/12/19 04:00 97.8 85 18 90/56 (67) 98 11/12/19 04:00 40 11/12/19 04:00 81 11/12/19 03:41 85 19 40 11/12/19 03:00 83 24 124/68 (86) 88 11/12/19 02:00 79 17 93/50 (64) 100 11/12/19 01:00 79 23 101/55 (70) 96 11/12/19 00:00 40 11/12/19 00:00 80 11/12/19 00:00 97.7 73 16 89/49 (62) 98 11/12/19 00:00 Mechanical Ventilator 11/11/19 23:44 76 19 40 11/11/19 23:00 80 20 92/51 (65) 98 11/11/19 22:00 77 16 84/50 (61) 100 11/11/19 22:00 114/73 11/11/19 21:00 86 20 114/73 (87) 98 11/11/19 20:03 86 20 40 11/11/19 20:00 98.2 82 17 109/61 (77) 100 11/11/19 20:00 40 11/11/19 20:00 83 11/11/19 20:00 Mechanical Ventilator 11/11/19 19:00 79 16 90/62 (71) 100 11/11/19 18:00 83 19 109/79 (89) 100 11/11/19 17:19 88 20 40 11/11/19 17:00 88 19 141/72 (95) 100 11/11/19 16:14 84 11/11/19 16:00 40 11/11/19 16:00 Mechanical Ventilator 11/11/19 16:00 98.0 83 16 107/81 (90) 100 11/11/19 15:25 77 16 40 11/11/19 15:00 82 15 87/59 (68) 100 11/11/19 14:00 82 17 110/62 (78) 100 11/11/19 13:00 78 16 100/57 (71) 100 11/11/19 12:42 77 16 40 11/11/19 12:00 Mechanical Ventilator 11/11/19 12:00 40 11/11/19 12:00 98.5 81 16 93/57 (69) 100 11/11/19 11:57 80 11/11/19 11:10 84 16 40 11/11/19 11:00 85 16 90/56 (67) 99 Height (Feet): 6 Height (Inches): 1.00 Weight (Pounds): 150 Objective Gen: NAD. intubated. HEENT: ETT. CV: S1+S2. no rubs or gallop Resp: coarse. regular. equal chest rise. no wheezes Abd: soft. G tube. nondistended. Skin: warm. dry. Neuro: awake. follows simple commands. calm Microbiology Date/Time Source Procedure Growth Status 11/09/19 22:00 Stool Clostridium difficile Toxin Assay - Final Complete 11/11/19 13:30 Urine,Clean Catch Urine Culture - Preliminary NO GROWTH Resulted Laboratory Tests Test 11/11/19 13:30 11/12/19 04:15 11/12/19 08:07 Urine Color Yellow Urine Appearance Clear Urine pH 7 (4.5-8.0) Urine Specific [place] 1.010 (1.005-1.035) Urine Protein 1+ (NEGATIVE) H Urine Glucose (UA) Negative (NEGATIVE) Urine Ketones Negative (NEGATIVE) Urine Blood Negative (NEGATIVE) Urine Nitrite Negative (NEGATIVE) Urine Bilirubin Negative (NEGATIVE) Urine Urobilinogen Normal MG/DL (0.0-1.0) Urine Leukocyte Esterase Negative (NEGATIVE) Urine RBC 0-2 /HPF (0 - 0) H Urine WBC 0-2 /HPF (0 - 0) Urine Squamous Epithelial Cells None /LPF (NONE/OCC) Urine Bacteria Few /HPF (NONE) Urine Yeast Moderate /HPF (NONE) H White Blood Count 16.3 K/UL (4.8-10.8) H Red Blood Count 3.35 M/UL (4.70-6.10) L Hemoglobin 9.5 G/DL (14.2-18.0) L Hematocrit 28.6 % (42.0-52.0) L Mean Corpuscular Volume 85 FL (80-99) Mean Corpuscular Hemoglobin 28.4 PG (27.0-31.0) Mean Corpuscular Hemoglobin Concent 33.4 G/DL (32.0-36.0) Red Cell Distribution Width 16.0 % (11.6-14.8) H Platelet Count 293 K/UL (150-450) Mean Platelet Volume 4.7 FL (6.5-10.1) L Neutrophils (%) (Auto) 82.9 % (45.0-75.0) H Lymphocytes (%) (Auto) 10.2 % (20.0-45.0) L Monocytes (%) (Auto) 4.8 % (1.0-10.0) Eosinophils (%) (Auto) 1.7 % (0.0-3.0) Basophils (%) (Auto) 0.5 % (0.0-2.0) Sodium Level 139 MMOL/L (136-145) Potassium Level 4.5 MMOL/L (3.5-5.1) Chloride Level 106 MMOL/L (98-107) Carbon Dioxide Level 26 MMOL/L (21-32) Anion Gap 7 mmol/L (5-15) Blood Urea Nitrogen 20 mg/dL (7-18) H Creatinine 1.0 MG/DL (0.55-1.30) Estimat Glomerular Filtration Rate > 60 mL/min (>60) Glucose Level 98 MG/DL (74-106) Calcium Level 8.3 MG/DL (8.5-10.1) L Phosphorus Level 2.5 MG/DL (2.5-4.9) Magnesium Level 2.3 MG/DL (1.8-2.4) Total Bilirubin 0.2 MG/DL (0.2-1.0) Aspartate Amino Transf (AST/SGOT) 94 U/L (15-37) H Alanine Aminotransferase (ALT/SGPT) 100 U/L (12-78) H Alkaline Phosphatase 206 U/L (46-116) H Total Protein 6.5 G/DL (6.4-8.2) Albumin 2.1 G/DL (3.4-5.0) L Globulin 4.4 g/dL Albumin/Globulin Ratio 0.5 (1.0-2.7) L Arterial Blood pH 7.434 (7.350-7.450) Arterial Blood Partial Pressure CO2 33.8 mmHg (35.0-45.0) L Arterial Blood Partial Pressure O2 79.7 mmHg (75.0-100.0) Arterial Blood HCO3 22.1 mmol/L (22.0-26.0) Arterial Blood Oxygen Saturation 95.3 % (95-100) Arterial Blood Base Excess -1.7 (-2-2) Ty Test Positive Current Medications Medications (Trade) Dose Ordered Sig/Tasha Route PRN Reason Start Time Stop Time Status Last Admin Dose Admin Acetaminophen (Tylenol) 650 mg Q4H PRN ORAL fever 10/30/19 11:15 11/29/19 11:14 11/10/19 19:43 Albuterol/ Ipratropium (Albuterol/ Ipratropium) 3 ml Q4H PRN HHN sob 11/10/19 08:45 11/15/19 08:44 Amiodarone HCl (Cordarone) 100 mg DAILY PEG 11/04/19 09:00 01/29/20 08:59 11/12/19 08:01 Chlorhexidine Gluconate (Megan-Hex 2%) 1 applic DAILY@2000 TOPIC 11/01/19 20:00 01/30/20 19:59 11/11/19 21:22 Heparin Sodium (Porcine) (Heparin 5000 units/ml) 5,000 units EVERY 12 HOURS SUBQ 11/02/19 09:00 12/17/19 08:59 11/12/19 08:02 Levothyroxine Sodium (Synthroid) 50 mcg DAILY@0630 GT 10/31/19 06:30 11/30/19 06:29 11/12/19 06:01 Linezolid 300 ml @ 300 mls/hr Q12HR IVPB 11/02/19 13:30 11/15/19 23:59 11/12/19 08:00 Lorazepam (Ativan 2mg/ml 1ml) 2 mg Q2HR PRN IV For Anxiety 11/06/19 22:30 11/13/19 22:29 11/12/19 07:58 Norepinephrine Bitartrate 4 mg/ Dextrose 254 ml @ 0 mls/hr Q24H IV 10/30/19 22:00 11/29/19 21:59 11/01/19 23:54 Ondansetron HCl (Zofran) 4 mg Q6H PRN IVP Nausea & Vomiting 10/30/19 11:15 11/29/19 11:14 Pantoprazole (Protonix) 40 mg DAILY IVP 10/31/19 09:00 11/30/19 08:59 11/12/19 08:00 Polyethylene Glycol (Miralax) 17 gm DAILYPRN PRN ORAL Constipation 10/30/19 11:15 11/29/19 11:14 Quetiapine Fumarate (SEROqueL) 100 mg Q12HR GT 10/30/19 23:00 12/14/19 22:59 11/12/19 08:00 Daphne Sy M.D. Nov 12, 2019 10:50
--- NOTE | 2019-11-12 11:00 | NUR ---
Dr Slade at bedside assessing pt.
--- NOTE | 2019-11-12 11:00 | Cardiology Progress Note ---
Assessment/Plan Assessment/Plan 1. Paroxysmal episodes of atrial fibrillation. 2. Respiratory failure. 3. Influenza A positive. covid negX1 4. Malignant neoplasm of the larynx. 5. History of hypertension. 6. History of hyperlipidemia. 7. History of hypothyroidism. 8. Respiratory failure on a mechanical ventilator. 9. Diabetes mellitus type 2. 10. Coagulopathy. 11. Abnormal liver function tests. 12. Hypotension likely from sepsis and shock 13. VRE bacteremia 14. Hypotension influenza positive await repeat covid testing bp is low will give fludi bolus as was in neg fludi statusyest off pressor anemic but stable wbc elevated bu better than yest final echo noted cxr reviewed persoanlly tele reviewed sinus no afib documented wean when feasible lwo grade fever today Subjective ROS Limited/Unobtainable: Yes Subjective on vent Objective Last 24 Hour Vital Signs Date Time Temp Pulse Resp B/P (MAP) Pulse Ox O2 Delivery O2 Flow Rate FiO2 11/12/19 10:00 82 16 91/54 (66) 100 11/12/19 09:20 79 16 40 11/12/19 09:00 83 16 88/49 (62) 100 11/12/19 08:00 99.4 91 18 127/86 (100) 100 11/12/19 08:00 40 11/12/19 08:00 Mechanical Ventilator 11/12/19 08:00 88 11/12/19 07:00 94 20 113/60 (77) 100 11/12/19 06:59 96 20 40 11/12/19 06:20 92 18 11/12/19 06:00 91 18 115/60 (78) 100 11/12/19 05:00 92 19 90/56 (67) 99 11/12/19 04:00 Mechanical Ventilator 11/12/19 04:00 97.8 85 18 90/56 (67) 98 11/12/19 04:00 40 11/12/19 04:00 81 11/12/19 03:41 85 19 40 11/12/19 03:00 83 24 124/68 (86) 88 11/12/19 02:00 79 17 93/50 (64) 100 11/12/19 01:00 79 23 101/55 (70) 96 11/12/19 00:00 40 11/12/19 00:00 80 11/12/19 00:00 97.7 73 16 89/49 (62) 98 11/12/19 00:00 Mechanical Ventilator 11/11/19 23:44 76 19 40 11/11/19 23:00 80 20 92/51 (65) 98 11/11/19 22:00 77 16 84/50 (61) 100 11/11/19 22:00 114/73 11/11/19 21:00 86 20 114/73 (87) 98 11/11/19 20:03 86 20 40 11/11/19 20:00 98.2 82 17 109/61 (77) 100 11/11/19 20:00 40 11/11/19 20:00 83 11/11/19 20:00 Mechanical Ventilator 11/11/19 19:00 79 16 90/62 (71) 100 11/11/19 18:00 83 19 109/79 (89) 100 11/11/19 17:19 88 20 40 11/11/19 17:00 88 19 141/72 (95) 100 11/11/19 16:14 84 11/11/19 16:00 40 11/11/19 16:00 Mechanical Ventilator 11/11/19 16:00 98.0 83 16 107/81 (90) 100 11/11/19 15:25 77 16 40 11/11/19 15:00 82 15 87/59 (68) 100 11/11/19 14:00 82 17 110/62 (78) 100 11/11/19 13:00 78 16 100/57 (71) 100 11/11/19 12:42 77 16 40 11/11/19 12:00 Mechanical Ventilator 11/11/19 12:00 40 11/11/19 12:00 98.5 81 16 93/57 (69) 100 11/11/19 11:57 80 11/11/19 11:10 84 16 40 11/11/19 11:00 85 16 90/56 (67) 99 General Appearance: on vent, patient on isolation, isolation precautions Intake and Output 11/11/19 11/12/19 19:00 07:00 Intake Total 900 ml 960 ml Output Total 1335 ml 710 ml Balance -435 ml 250 ml IV Total 300 ml 300 ml Tube Feeding 600 ml 600 ml Other 60 ml Output Urine Total 735 ml 410 ml Stool Total 600 ml 300 ml Laboratory Tests Test 11/11/19 13:30 11/12/19 04:15 11/12/19 08:07 Urine Color Yellow Urine Appearance Clear Urine pH 7 (4.5-8.0) Urine Specific [place] 1.010 (1.005-1.035) Urine Protein 1+ (NEGATIVE) H Urine Glucose (UA) Negative (NEGATIVE) Urine Ketones Negative (NEGATIVE) Urine Blood Negative (NEGATIVE) Urine Nitrite Negative (NEGATIVE) Urine Bilirubin Negative (NEGATIVE) Urine Urobilinogen Normal MG/DL (0.0-1.0) Urine Leukocyte Esterase Negative (NEGATIVE) Urine RBC 0-2 /HPF (0 - 0) H Urine WBC 0-2 /HPF (0 - 0) Urine Squamous Epithelial Cells None /LPF (NONE/OCC) Urine Bacteria Few /HPF (NONE) Urine Yeast Moderate /HPF (NONE) H White Blood Count 16.3 K/UL (4.8-10.8) H Red Blood Count 3.35 M/UL (4.70-6.10) L Hemoglobin 9.5 G/DL (14.2-18.0) L Hematocrit 28.6 % (42.0-52.0) L Mean Corpuscular Volume 85 FL (80-99) Mean Corpuscular Hemoglobin 28.4 PG (27.0-31.0) Mean Corpuscular Hemoglobin Concent 33.4 G/DL (32.0-36.0) Red Cell Distribution Width 16.0 % (11.6-14.8) H Platelet Count 293 K/UL (150-450) Mean Platelet Volume 4.7 FL (6.5-10.1) L Neutrophils (%) (Auto) 82.9 % (45.0-75.0) H Lymphocytes (%) (Auto) 10.2 % (20.0-45.0) L Monocytes (%) (Auto) 4.8 % (1.0-10.0) Eosinophils (%) (Auto) 1.7 % (0.0-3.0) Basophils (%) (Auto) 0.5 % (0.0-2.0) Sodium Level 139 MMOL/L (136-145) Potassium Level 4.5 MMOL/L (3.5-5.1) Chloride Level 106 MMOL/L (98-107) Carbon Dioxide Level 26 MMOL/L (21-32) Anion Gap 7 mmol/L (5-15) Blood Urea Nitrogen 20 mg/dL (7-18) H Creatinine 1.0 MG/DL (0.55-1.30) Estimat Glomerular Filtration Rate > 60 mL/min (>60) Glucose Level 98 MG/DL (74-106) Calcium Level 8.3 MG/DL (8.5-10.1) L Phosphorus Level 2.5 MG/DL (2.5-4.9) Magnesium Level 2.3 MG/DL (1.8-2.4) Total Bilirubin 0.2 MG/DL (0.2-1.0) Aspartate Amino Transf (AST/SGOT) 94 U/L (15-37) H Alanine Aminotransferase (ALT/SGPT) 100 U/L (12-78) H Alkaline Phosphatase 206 U/L (46-116) H Total Protein 6.5 G/DL (6.4-8.2) Albumin 2.1 G/DL (3.4-5.0) L Globulin 4.4 g/dL Albumin/Globulin Ratio 0.5 (1.0-2.7) L Arterial Blood pH 7.434 (7.350-7.450) Arterial Blood Partial Pressure CO2 33.8 mmHg (35.0-45.0) L Arterial Blood Partial Pressure O2 79.7 mmHg (75.0-100.0) Arterial Blood HCO3 22.1 mmol/L (22.0-26.0) Arterial Blood Oxygen Saturation 95.3 % (95-100) Arterial Blood Base Excess -1.7 (-2-2) Ty Test Positive Microbiology Date/Time Source Procedure Growth Status 11/09/19 22:00 Stool Clostridium difficile Toxin Assay - Final Complete 11/11/19 13:30 Urine,Clean Catch Urine Culture - Preliminary NO GROWTH Resulted Carlos Slade MD Nov 12, 2019 11:00
--- NOTE | 2019-11-12 11:50 | Pulmonolgy Critical Care Note ---
Critical Care - Asmt/Plan Problems: (1) Acute respiratory failure (2) Septic shock (3) Enterococcal bacteremia (4) Nosocomial pneumonia (5) COPD (chronic obstructive pulmonary disease) (6) Suspected 2019-nCoV infection (7) Atrial fibrillation (8) Severe anemia (9) Hypothyroidism (10) Psychosis Respiratory: monitor respiratory rate, adjust FIO2, CXR, ABG Cardiac: continue to monitor HR/BP Renal: F/U I&O, keep IV fluid Infectious Disease: check cultures, continue antibiotics Gastrointestinal: continue feedings/current rate Hematologic: monitor H/H, transfuse if hgb<8.5 Neurologic: PRN Ativan, keep patient comfortable Affect: PRN ativan Prophylaxis: Protonix Time Spent (Minutes): 40 Notes Reviewed: warp dyeing vat tender, cardio, renal Critical Care - Objective Last 24 Hour Vital Signs Date Time Temp Pulse Resp B/P (MAP) Pulse Ox O2 Delivery O2 Flow Rate FiO2 11/12/19 11:00 76 16 87/51 (63) 99 11/12/19 10:00 82 16 91/54 (66) 100 11/12/19 09:20 79 16 40 11/12/19 09:00 83 16 88/49 (62) 100 11/12/19 08:00 99.4 91 18 127/86 (100) 100 11/12/19 08:00 40 11/12/19 08:00 Mechanical Ventilator 11/12/19 08:00 88 11/12/19 07:00 94 20 113/60 (77) 100 11/12/19 06:59 96 20 40 11/12/19 06:20 92 18 11/12/19 06:00 91 18 115/60 (78) 100 11/12/19 05:00 92 19 90/56 (67) 99 11/12/19 04:00 Mechanical Ventilator 11/12/19 04:00 97.8 85 18 90/56 (67) 98 11/12/19 04:00 40 11/12/19 04:00 81 11/12/19 03:41 85 19 40 11/12/19 03:00 83 24 124/68 (86) 88 11/12/19 02:00 79 17 93/50 (64) 100 11/12/19 01:00 79 23 101/55 (70) 96 11/12/19 00:00 40 11/12/19 00:00 80 4/14/20 00:00 97.7 73 16 89/49 (62) 98 11/12/19 00:00 Mechanical Ventilator 11/11/19 23:44 76 19 40 11/11/19 23:00 80 20 92/51 (65) 98 11/11/19 22:00 77 16 84/50 (61) 100 11/11/19 22:00 114/73 11/11/19 21:00 86 20 114/73 (87) 98 11/11/19 20:03 86 20 40 11/11/19 20:00 98.2 82 17 109/61 (77) 100 11/11/19 20:00 40 11/11/19 20:00 83 11/11/19 20:00 Mechanical Ventilator 11/11/19 19:00 79 16 90/62 (71) 100 11/11/19 18:00 83 19 109/79 (89) 100 11/11/19 17:19 88 20 40 11/11/19 17:00 88 19 141/72 (95) 100 11/11/19 16:14 84 11/11/19 16:00 40 11/11/19 16:00 Mechanical Ventilator 11/11/19 16:00 98.0 83 16 107/81 (90) 100 11/11/19 15:25 77 16 40 11/11/19 15:00 82 15 87/59 (68) 100 11/11/19 14:00 82 17 110/62 (78) 100 11/11/19 13:00 78 16 100/57 (71) 100 11/11/19 12:42 77 16 40 11/11/19 12:00 Mechanical Ventilator 11/11/19 12:00 40 11/11/19 12:00 98.5 81 16 93/57 (69) 100 11/11/19 11:57 80 Status: sedated Condition: critical HEENT: atraumatic, normocephalic Lungs: rales, rhonchi Heart: HR/BP stable Abdomen: soft Extremities: no C/C/E Micro: Microbiology Date/Time Source Procedure Growth Status 11/09/19 22:00 Stool Clostridium difficile Toxin Assay - Final Complete 11/11/19 13:30 Urine,Clean Catch Urine Culture - Preliminary NO GROWTH Resulted Critical Care - Subjective ROS Limited/Unobtainable: Yes Condition: critical EKG Rhythm: Sinus Rhythm FI02: 40 Vent Support Breath Rate: 16 Vent Support Mode: AC Vent Tidal Volume: 600 Sputum Amount: Moderate PEEP: 0.0 PIP: 32 Tube Feeding Amount: 50 I&O: Intake and Output 11/11/19 11/12/19 19:00 07:00 Intake Total 900 ml 960 ml Output Total 1335 ml 710 ml Balance -435 ml 250 ml IV Total 300 ml 300 ml Tube Feeding 600 ml 600 ml Other 60 ml Output Urine Total 735 ml 410 ml Stool Total 600 ml 300 ml CXR: bilateral interstitial infiltrate ET-Tube: 7.5 ET Position: 21 Labs: Laboratory Tests Test 11/11/19 13:30 11/12/19 04:15 11/12/19 08:07 Urine Color Yellow Urine Appearance Clear Urine pH 7 (4.5-8.0) Urine Specific [place] 1.010 (1.005-1.035) Urine Protein 1+ (NEGATIVE) H Urine Glucose (UA) Negative (NEGATIVE) Urine Ketones Negative (NEGATIVE) Urine Blood Negative (NEGATIVE) Urine Nitrite Negative (NEGATIVE) Urine Bilirubin Negative (NEGATIVE) Urine Urobilinogen Normal MG/DL (0.0-1.0) Urine Leukocyte Esterase Negative (NEGATIVE) Urine RBC 0-2 /HPF (0 - 0) H Urine WBC 0-2 /HPF (0 - 0) Urine Squamous Epithelial Cells None /LPF (NONE/OCC) Urine Bacteria Few /HPF (NONE) Urine Yeast Moderate /HPF (NONE) H White Blood Count 16.3 K/UL (4.8-10.8) H Red Blood Count 3.35 M/UL (4.70-6.10) L Hemoglobin 9.5 G/DL (14.2-18.0) L Hematocrit 28.6 % (42.0-52.0) L Mean Corpuscular Volume 85 FL (80-99) Mean Corpuscular Hemoglobin 28.4 PG (27.0-31.0) Mean Corpuscular Hemoglobin Concent 33.4 G/DL (32.0-36.0) Red Cell Distribution Width 16.0 % (11.6-14.8) H Platelet Count 293 K/UL (150-450) Mean Platelet Volume 4.7 FL (6.5-10.1) L Neutrophils (%) (Auto) 82.9 % (45.0-75.0) H Lymphocytes (%) (Auto) 10.2 % (20.0-45.0) L Monocytes (%) (Auto) 4.8 % (1.0-10.0) Eosinophils (%) (Auto) 1.7 % (0.0-3.0) Basophils (%) (Auto) 0.5 % (0.0-2.0) Sodium Level 139 MMOL/L (136-145) Potassium Level 4.5 MMOL/L (3.5-5.1) Chloride Level 106 MMOL/L (98-107) Carbon Dioxide Level 26 MMOL/L (21-32) Anion Gap 7 mmol/L (5-15) Blood Urea Nitrogen 20 mg/dL (7-18) H Creatinine 1.0 MG/DL (0.55-1.30) Estimat Glomerular Filtration Rate > 60 mL/min (>60) Glucose Level 98 MG/DL (74-106) Calcium Level 8.3 MG/DL (8.5-10.1) L Phosphorus Level 2.5 MG/DL (2.5-4.9) Magnesium Level 2.3 MG/DL (1.8-2.4) Total Bilirubin 0.2 MG/DL (0.2-1.0) Aspartate Amino Transf (AST/SGOT) 94 U/L (15-37) H Alanine Aminotransferase (ALT/SGPT) 100 U/L (12-78) H Alkaline Phosphatase 206 U/L (46-116) H Total Protein 6.5 G/DL (6.4-8.2) Albumin 2.1 G/DL (3.4-5.0) L Globulin 4.4 g/dL Albumin/Globulin Ratio 0.5 (1.0-2.7) L Arterial Blood pH 7.434 (7.350-7.450) Arterial Blood Partial Pressure CO2 33.8 mmHg (35.0-45.0) L Arterial Blood Partial Pressure O2 79.7 mmHg (75.0-100.0) Arterial Blood HCO3 22.1 mmol/L (22.0-26.0) Arterial Blood Oxygen Saturation 95.3 % (95-100) Arterial Blood Base Excess -1.7 (-2-2) Ty Test Positive Jackie Kaiser MD Nov 12, 2019 11:50
--- NOTE | 2019-11-12 12:00 | NUR ---
NURSE NOTES: Pt repositioned, oral care provided, Dr Kaiser at bedside assessing pt, no distress noted.
--- NOTE | 2019-11-12 12:12 | NUR ---
HAND-OFF: Report given to VENKAT Sweeney.
--- NOTE | 2019-11-12 12:30 | NUR ---
NURSE NOTES: Received report from VENKAT Thao. The patient is resting on the bed without acute distress or shortness of breath. The patient's bed in the lowest position, call light in reach, and fall and aspiration precaution reinforced. The patient is on mechanical ventilator as follows: ETT 7.5, 21cm @ lip line, AC 16, TV 600, FiO2 40%, and SpO2 100%. The patient's G-tube intact and patent and Glucerna 1.5 @50mL/hr running per order. The patient's Patel and rectal tube intact and patent and draining by gravity. The patient's R femoral TLC intact and patent and dressing intact. No skin issue noted. Bilateral soft wrist restraints on per order, and circulation and skin is intact. The patient's vital signs taken. Labs checked. Will continue plan of care.
--- NOTE | 2019-11-12 13:30 | NUR ---
NURSE NOTES: The patient's blood pressure is systolic 90s. The patient is tolerating tube feeding and ventilator setting well. Will continue plan of care.
--- NOTE | 2019-11-12 15:00 | NUR ---
NURSE NOTES: The patient is stable without acute distress or shortness of breath. Tolerating tube feeding and ventilator setting well. The patient's blood pressure got more stabilized to systolic 90-100s. Bed bath given. Will continue plan of care.
--- NOTE | 2019-11-12 16:00 | NUR ---
NURSE NOTES: The patient is stable without acute distress or shortness of breath. Repositioned the patient. Will continue plan of care.
--- NOTE | 2019-11-12 17:00 | NUR ---
NURSE NOTES: The patient is stable without acute distress or shortness of breath. Tolerating tube feeding and ventilator well. Urine output noted and emptied. Rectal tube intact and changed into new one. Will continue plan of care.
--- NOTE | 2019-11-12 17:46 | Internal Med Progress Note ---
Subjective Date of Service: Nov 12, 2019 Physician Name Turcios,Gallito Attending Physician Danny Stark MD Current Medications Medications (Trade) Dose Ordered Sig/Tasha Route PRN Reason Start Time Stop Time Status Last Admin Dose Admin Acetaminophen (Tylenol) 650 mg Q4H PRN ORAL fever 10/30/19 11:15 11/29/19 11:14 11/10/19 19:43 Albuterol/ Ipratropium (Albuterol/ Ipratropium) 3 ml Q4H PRN HHN sob 11/10/19 08:45 11/15/19 08:44 Amiodarone HCl (Cordarone) 100 mg DAILY PEG 11/04/19 09:00 01/29/20 08:59 11/12/19 08:01 Chlorhexidine Gluconate (Megan-Hex 2%) 1 applic DAILY@2000 TOPIC 11/01/19 20:00 01/30/20 19:59 11/11/19 21:22 Heparin Sodium (Porcine) (Heparin 5000 units/ml) 5,000 units EVERY 12 HOURS SUBQ 11/02/19 09:00 12/17/19 08:59 11/12/19 08:02 Levothyroxine Sodium (Synthroid) 50 mcg DAILY@0630 GT 10/31/19 06:30 11/30/19 06:29 11/12/19 06:01 Linezolid 300 ml @ 300 mls/hr Q12HR IVPB 11/02/19 13:30 11/15/19 23:59 11/12/19 08:00 Lorazepam (Ativan 2mg/ml 1ml) 2 mg Q2HR PRN IV For Anxiety 11/06/19 22:30 11/13/19 22:29 11/12/19 07:58 Norepinephrine Bitartrate 4 mg/ Dextrose 254 ml @ 0 mls/hr Q24H IV 10/30/19 22:00 11/29/19 21:59 11/01/19 23:54 Ondansetron HCl (Zofran) 4 mg Q6H PRN IVP Nausea & Vomiting 10/30/19 11:15 11/29/19 11:14 Pantoprazole (Protonix) 40 mg DAILY IVP 10/31/19 09:00 11/30/19 08:59 11/12/19 08:00 Polyethylene Glycol (Miralax) 17 gm DAILYPRN PRN ORAL Constipation 10/30/19 11:15 11/29/19 11:14 Quetiapine Fumarate (SEROqueL) 100 mg Q12HR GT 10/30/19 23:00 12/14/19 22:59 11/12/19 08:00 Allergies: Coded Allergies: No Known Allergies (Unverified , 10/30/19) ROS Limited/Unobtainable: Yes Subjective 73 YO M with history of esophageal cancer admitted with respiratory failure. Cover for Int Med-Dr Stark. ICU. Intubted and sedated. Objective Last Vital Signs Date Time Temp Pulse Resp B/P (MAP) Pulse Ox O2 Delivery O2 Flow Rate FiO2 11/12/19 17:00 72 16 98/52 (67) 100 72 11/12/19 16:00 40 11/12/19 16:00 Mechanical Ventilator 11/12/19 16:00 98.0 Laboratory Tests Test 11/12/19 04:15 11/12/19 08:07 White Blood Count 16.3 K/UL (4.8-10.8) H Red Blood Count 3.35 M/UL (4.70-6.10) L Hemoglobin 9.5 G/DL (14.2-18.0) L Hematocrit 28.6 % (42.0-52.0) L Mean Corpuscular Volume 85 FL (80-99) Mean Corpuscular Hemoglobin 28.4 PG (27.0-31.0) Mean Corpuscular Hemoglobin Concent 33.4 G/DL (32.0-36.0) Red Cell Distribution Width 16.0 % (11.6-14.8) H Platelet Count 293 K/UL (150-450) Mean Platelet Volume 4.7 FL (6.5-10.1) L Neutrophils (%) (Auto) 82.9 % (45.0-75.0) H Lymphocytes (%) (Auto) 10.2 % (20.0-45.0) L Monocytes (%) (Auto) 4.8 % (1.0-10.0) Eosinophils (%) (Auto) 1.7 % (0.0-3.0) Basophils (%) (Auto) 0.5 % (0.0-2.0) Sodium Level 139 MMOL/L (136-145) Potassium Level 4.5 MMOL/L (3.5-5.1) Chloride Level 106 MMOL/L (98-107) Carbon Dioxide Level 26 MMOL/L (21-32) Anion Gap 7 mmol/L (5-15) Blood Urea Nitrogen 20 mg/dL (7-18) H Creatinine 1.0 MG/DL (0.55-1.30) Estimat Glomerular Filtration Rate > 60 mL/min (>60) Glucose Level 98 MG/DL (74-106) Calcium Level 8.3 MG/DL (8.5-10.1) L Phosphorus Level 2.5 MG/DL (2.5-4.9) Magnesium Level 2.3 MG/DL (1.8-2.4) Total Bilirubin 0.2 MG/DL (0.2-1.0) Aspartate Amino Transf (AST/SGOT) 94 U/L (15-37) H Alanine Aminotransferase (ALT/SGPT) 100 U/L (12-78) H Alkaline Phosphatase 206 U/L (46-116) H Total Protein 6.5 G/DL (6.4-8.2) Albumin 2.1 G/DL (3.4-5.0) L Globulin 4.4 g/dL Albumin/Globulin Ratio 0.5 (1.0-2.7) L Arterial Blood pH 7.434 (7.350-7.450) Arterial Blood Partial Pressure CO2 33.8 mmHg (35.0-45.0) L Arterial Blood Partial Pressure O2 79.7 mmHg (75.0-100.0) Arterial Blood HCO3 22.1 mmol/L (22.0-26.0) Arterial Blood Oxygen Saturation 95.3 % (95-100) Arterial Blood Base Excess -1.7 (-2-2) Ty Test Positive Microbiology Date/Time Source Procedure Growth Status 11/11/19 13:32 Sputum Gram Stain - Final Resulted 11/11/19 13:32 Sputum Sputum Culture Pending Resulted 11/09/19 22:00 Stool Clostridium difficile Toxin Assay - Final Complete 11/11/19 13:30 Urine,Clean Catch Urine Culture - Preliminary NO GROWTH Resulted Intake and Output 11/11/19 11/12/19 19:00 07:00 Intake Total 900 ml 960 ml Output Total 1335 ml 710 ml Balance -435 ml 250 ml IV Total 300 ml 300 ml Tube Feeding 600 ml 600 ml Other 60 ml Output Urine Total 735 ml 410 ml Stool Total 600 ml 300 ml Objective PHYSICAL EXAMINATION: VITAL SIGNS: Temperature 98.1, respirations 25, pulse 92, blood pressure 95/59. GENERAL: The patient is well-developed, well-nourished male, who is intubated and sedated. HEENT: Eyes, pupils are equal and responsive to light and accommodation. Extraocular movements are intact. NECK: Supple without lymphadenopathy. CHEST: Mech vent; Coarse mechanical breath sounds bilaterally without wheezes or rales. CARDIOVASCULAR: Regular rhythm and rate. S1, S2 are normal without murmurs, rubs, or gallops. ABDOMEN: Soft, nontender, and nondistended. Positive bowel sounds. No evidence of hepatosplenomegaly. Currently, no rebound or guarding noted. EXTREMITIES: Negative for clubbing, cyanosis, or edema. RECTAL/GENITAL: Not performed. NEUROLOGICAL: Unable to assess. Assessment/Plan Assessment/Plan ASSESSMENT: This is a 73-year-old male. 1. Respiratory failure. 2. Pneumonia. 3. Esophageal cancer. 4. Diabetes type 2. 5. Hypertension. 6. Hypercholesterolemia. 7. Atrial fibrillation. 8. Hypothyroidism. 9. Dysphagia. 10. History of prostate cancer. 11. Sepsis=Enterococcus (VRE) TREATMENT: 1. Pneumonia/respiratory failure. A Pulmonary consultation has been obtained with Dr. Jackie Kaiser. An Infectious Disease consultation has been obtained with Dr. Sy. We will follow recommendations of Infectious Disease and Pulmonary. COVID 19=neg 2. Esophageal cancer. 3. Diabetes type 2. A NovoLog sliding scale has been instituted. 4. Hypertension. The patient is currently hypotensive and probable sepsis. 5. Hypercholesterolemia. Continue atorvastatin as above. 6. Atrial fibrillation. Continue amiodarone as above. 7. Hypothyroidism. Continue levothyroxine as above. 8. Dysphagia, status post PEG placement. 9. History of prostate cancer. 10. ABX = linezolid. Gallito Turcios MD Nov 12, 2019 17:46
--- NOTE | 2019-11-12 18:00 | NUR ---
NURSE NOTES: The patient is stable without acute distress or shortness of breath. Vital signs stable. Will continue plan of care.
--- NOTE | 2019-11-12 19:20 | NUR ---
HAND-OFF: Report given to VENKAT Gimenez. The patient is resting on the bed without acute distress or shortness of breath. The patient's bed in the lowest position, call ilght in reach, and fall and aspiration precaution reinforced. Mechanical ventilator per order and tolerating well. G tube intact and patent and running tube feeding formula per order. R femoral TLC intact and patent. Patel and Rectal tube intact and draining by gravity. Endorsed plan of care.
--- NOTE | 2019-11-12 19:45 | NUR ---
RESPIRATORY NOTE: Received pt on AC 16, 600VT, 40%, no PEEP. Pt intubated w/ ETT 7.5 @ 21cm lipline, secured by anchorfast. Pt is awake, responds to stimuli. B/S marcy. rhonchi, sxn moderate to large amounts of thick/thin/frothy, harrell-yellow to yellow-green secretions. Vent plugged into red outlet, ambubag at bedside. Pt in no apparent distress at this time. Will continue to monitor pt.
--- NOTE | 2019-11-12 19:46 | NUR ---
NURSE NOTES: Endorsement received from VENKAT Sweeney. Patient asleep. Orally intubated with 7.5, 21 lipline. AC 16, 600, 40%. GT patent and intact. On Glucerna 1.5 at 50ml/hr. No residual. Patel catheter in place. Rectal tube present. Noted with brown liquid stool in the bag and rectal tube. On P200 mattress. Head of bed elevated. Bed locked and in low position. Call light within reach.
[2019-11-12] MEDS: Dyna-Hex 2% Top Sol 2oz TOPIC SCH (20:24)
--- NOTE | 2019-11-12 21:00 | NUR ---
NURSE NOTES: Secretions suctioned. Noted with large, thick secretions.
--- NOTE | 2019-11-12 23:00 | NUR ---
NURSE NOTES: Patient asleep. No signs of pain or discomfort.
[2019-11-13] VITALS (25 sets, daily range): BP systolic 86–135; BP diastolic 45–94
--- NOTE | 2019-11-13 | NUR ---
NURSE NOTES: Patient asleep at this time. No shortness of breath. Noted with 150ml residual. Zofran given, feeding withheld. HOB kept elevated.
--- NOTE | 2019-11-13 02:00 | NUR ---
NURSE NOTES: Secretion suctioned. Patient repositioned.
--- NOTE | 2019-11-13 03:00 | NUR ---
NURSE NOTES: Bed bath, oral care, change of linens done.
--- NOTE | 2019-11-13 05:00 | NUR ---
NURSE NOTES: Patient asleep. VSS. Feeding remained on hold at this time. No vomiting. HOB kept elevated.
--- NOTE | 2019-11-13 06:00 | NUR ---
NURSE NOTES: Residual rechecked, noted with 30ml of yellowish looks like undigested feeding. Feeding resumed at 10ml/hr.
--- NOTE | 2019-11-13 07:20 | NUR ---
NURSE NOTES: Received report from VENKAT Gimenez. The patient is resting on the bed without acute distress or shortness of breath. The patient is sleeping and awakable with painful stimuli. The patient's bed in the lowest position, call light in reach, and fall and aspiration precaution reinforced. The patient is on mechanical ventilator on following settings: ETT 7.5, lip line @ 21cm, AC 16, TV 600, FiO2 40%, and oxygen saturation 100% but still has a lot of thick white secretions. Per night nurse, the patient had high residual and had to hold feeding for couple hours. During morning assessment, the patient had residual of 30mL with Glucerna 1.5 @10mL/hr. Will closely monitor the residual. The patient's Patel and rectal tube intact and patent and draining by gravity. The patient's vital signs stable. Will continue plan of care. Addendum: 11/13/19 at 1329 by Gold Victor RN R femoral TLC intact and patent and dressing intact. Addendum: 11/13/19 at 1330 by Gold Victor RN Bilateral soft wrist restraints per order and skin and circulation intact.
--- NOTE | 2019-11-13 07:20 | NUR ---
HAND-OFF: Report given to Zahra ROBLEDO.
[2019-11-13 07:25] LABS: EOSINOPHILS % (AUTO) 3.1 % (0.0-3.0); HEMATOCRIT 25.1 % (42.0-52.0); HEMOGLOBIN 8.3 G/DL (14.2-18.0); LYMPHOCYTES % (AUTO) 17.6 % (20.0-45.0); MEAN CORPUSCULAR VOLUME 86 FL (80-99); MONOCYTES % (AUTO) 8.1 % (1.0-10.0); NEUTROPHILS % (AUTO) 70.2 % (45.0-75.0); PLATELET COUNT 230 K/UL (150-450); RED BLOOD COUNT 2.93 M/UL (4.70-6.10); RED CELL DISTRIBUTION WIDTH 15.8 % (11.6-14.8); WHITE BLOOD COUNT 11.1 K/UL (4.8-10.8)
[2019-11-13 07:42] LABS: ALANINE AMINOTRANSFERASE 85 U/L (12-78); ALBUMIN 1.8 G/DL (3.4-5.0); ALBUMIN/GLOBULIN RATIO 0.4 (1.0-2.7); ALKALINE PHOSPHATASE 169 U/L (46-116); ANION GAP 10 mmol/L (5-15); ASPARTATE AMINO TRANSFERASE 72 U/L (15-37); BILIRUBIN,TOTAL 0.2 MG/DL (0.2-1.0); BLOOD UREA NITROGEN 16 mg/dL (7-18); CARBON DIOXIDE 23 MMOL/L (21-32); CHLORIDE 110 MMOL/L (98-107); CREATININE 0.8 MG/DL (0.55-1.30); PHOSPHORUS 1.9 MG/DL (2.5-4.9); POTASSIUM 4.5 MMOL/L (3.5-5.1); SODIUM 143 MMOL/L (136-145)
--- NOTE | 2019-11-13 08:00 | NUR ---
NURSE NOTES: Notified Dr. Kaiser regarding abnormal lab including hemoglobin of 8.3. No new order at this time. Will continue plan of care.
[2019-11-13 08:18] LABS: CALCIUM 7.7 MG/DL (8.5-10.1)
[2019-11-13] MEDS: Amiodarone 200mg tab PEG SCH (08:18)
[2019-11-13] MEDS: Pantoprazole Inj IVP SCH (08:18)
[2019-11-13] MEDS: Heparin 5000 units/ml inj SUBQ SCH ×2 (08:19→21:02)
--- NOTE | 2019-11-13 08:30 | NUR ---
NURSE NOTES: The patient is blood pressure is systolic 80-90s. Will closely monitor the patient.
--- NOTE | 2019-11-13 09:11 | Diagnostic Imaging Report ---
Indication: Dyspnea Technique: XRAY Chest 1v Comparison: 11/12/2019 Findings: Heart size and mediastinal contours are stable. Endotracheal tube and right-sided Mediport unchanged in position. Interstitial and patchy bilateral airspace disease is not significant changed compared to one day prior. No radiographically appreciable pleural effusion or pneumothorax. Osseous structures stable. Impression: No significant interval change in the radiographic appearance the chest compared to one day prior. Findings as above.
--- NOTE | 2019-11-13 09:30 | NUR ---
NURSE NOTES: 0900 medication administered per order. The patient is stable and tolerating ventilator setting well. Will continue plan of care.
--- NOTE | 2019-11-13 10:30 | NUR ---
NURSE NOTES: Bed bath given to the patient. Tolerating ventilator setting well. The patient's G tube residual is 30mL noted. Will closely monitor the patient.
--- NOTE | 2019-11-13 10:45 | NUR ---
RADIOLOGY DEPT., CHEST X-RAY DONE.-P.DYE
--- NOTE | 2019-11-13 11:56 | Pulmonolgy Critical Care Note ---
Critical Care - Asmt/Plan Problems: (1) Acute respiratory failure (2) Septic shock (3) Enterococcal bacteremia (4) Nosocomial pneumonia (5) COPD (chronic obstructive pulmonary disease) (6) Suspected 2019-nCoV infection (7) Atrial fibrillation (8) Severe anemia (9) Hypothyroidism (10) Psychosis Respiratory: monitor respiratory rate, adjust FIO2, CXR Cardiac: continue pressors, continue to monitor HR/BP Renal: F/U I&O, check electrolytes Infectious Disease: check cultures, continue antibiotics Gastrointestinal: continue feedings/current rate Endocrine: monitor blood sugar, continue sliding scale insulin Hematologic: transfuse if hgb<8.5 Neurologic: PRN Ativan, PRN Morphine, keep patient comfortable Prophylaxis: Heparin Notes Reviewed: cardio, renal Critical Care - Objective Last 24 Hour Vital Signs Date Time Temp Pulse Resp B/P (MAP) Pulse Ox O2 Delivery O2 Flow Rate FiO2 11/13/19 08:02 16 16 40 11/13/19 07:00 65 16 87/45 (59) 98 11/13/19 06:30 67 20 11/13/19 06:00 67 15 91/55 (67) 99 11/13/19 05:21 71 17 40 11/13/19 05:00 66 16 92/46 (61) 100 11/13/19 04:00 73 11/13/19 04:00 40 11/13/19 04:00 Mechanical Ventilator 11/13/19 04:00 97.7 73 16 92/60 (71) 100 11/13/19 03:37 69 16 40 11/13/19 03:00 70 17 94/51 (65) 100 11/13/19 02:00 65 16 98/56 (70) 100 11/13/19 01:14 66 16 40 11/13/19 01:00 60 16 91/71 (78) 100 11/13/19 00:00 40 11/13/19 00:00 Mechanical Ventilator 11/13/19 00:00 98.0 72 16 109/57 (74) 100 11/13/19 00:00 78 11/12/19 23:27 79 18 40 11/12/19 23:00 78 16 106/54 (71) 100 11/12/19 22:00 73 16 91/47 (62) 100 11/12/19 22:00 91/47 11/12/19 21:04 68 16 40 11/12/19 21:00 97.9 69 16 90/49 (63) 100 11/12/19 20:00 73 16 91/49 (63) 100 11/12/19 20:00 68 11/12/19 20:00 40 11/12/19 20:00 Mechanical Ventilator 11/12/19 19:41 76 17 40 11/12/19 19:00 78 16 96/56 (69) 100 11/12/19 18:00 73 16 112/57 (75) 100 11/12/19 17:00 72 16 98/52 (67) 100 72 11/12/19 16:00 40 11/12/19 16:00 Mechanical Ventilator 11/12/19 16:00 98.0 68 16 97/49 (65) 100 11/12/19 16:00 75 11/12/19 15:00 66 16 98/53 (68) 100 11/12/19 14:57 68 16 40 11/12/19 14:00 69 16 93/50 (64) 100 11/12/19 13:00 69 16 97/69 (78) 100 69 11/12/19 12:58 69 16 40 11/12/19 12:00 Mechanical Ventilator 11/12/19 12:00 40 11/12/19 12:00 77 11/12/19 12:00 97.5 76 16 92/52 (65) 100 Status: awake Condition: critical HEENT: atraumatic Lungs: clear Heart: HR/BP stable, regular Abdomen: non-tender Extremities: no C/C/E Decubiti: location Micro: Microbiology Date/Time Source Procedure Growth Status 11/11/19 10:15 Blood Blood Culture - Preliminary NO GROWTH AFTER 24 HOURS Resulted 11/11/19 10:00 Blood Blood Culture - Preliminary NO GROWTH AFTER 24 HOURS Resulted 11/11/19 13:32 Nasopharynx Coronavirus COVID-19 PCR (PAL) - Final Complete 11/11/19 13:32 Sputum Gram Stain - Final Resulted 11/11/19 13:32 Sputum Culture - Preliminary Yeast Species Resulted 11/11/19 13:30 Urine,Clean Catch Urine Culture - Preliminary NO GROWTH AFTER 24 HOURS Resulted Critical Care - Subjective ROS Limited/Unobtainable: Yes Condition: critical EKG Rhythm: Sinus Rhythm FI02: 40 Vent Support Breath Rate: 16 Vent Support Mode: AC Vent Tidal Volume: 600 Sputum Amount: Moderate PEEP: 0.0 PIP: 31 Tube Feeding Amount: 10 I&O: Intake and Output 11/12/19 11/13/19 19:00 07:00 Intake Total 910 ml 580 ml Output Total 760 ml 1100 ml Balance 150 ml -520 ml Intake Free Water 10 ml IV Total 300 ml 300 ml Tube Feeding 600 ml 220 ml Other 60 ml Output Urine Total 760 ml 600 ml Stool Total 500 ml CXR: Interstitial and patchy bilateral airspace disease ET-Tube: 7.5 ET Position: 21 Labs: Laboratory Tests Test 11/13/19 05:05 11/13/19 09:10 White Blood Count 11.1 K/UL (4.8-10.8) H Red Blood Count 2.93 M/UL (4.70-6.10) L Hemoglobin 8.3 G/DL (14.2-18.0) L Hematocrit 25.1 % (42.0-52.0) L Mean Corpuscular Volume 86 FL (80-99) Mean Corpuscular Hemoglobin 28.5 PG (27.0-31.0) Mean Corpuscular Hemoglobin Concent 33.3 G/DL (32.0-36.0) Red Cell Distribution Width 15.8 % (11.6-14.8) H Platelet Count 230 K/UL (150-450) Mean Platelet Volume 4.9 FL (6.5-10.1) L Neutrophils (%) (Auto) 70.2 % (45.0-75.0) Lymphocytes (%) (Auto) 17.6 % (20.0-45.0) L Monocytes (%) (Auto) 8.1 % (1.0-10.0) Eosinophils (%) (Auto) 3.1 % (0.0-3.0) H Basophils (%) (Auto) 1.0 % (0.0-2.0) Sodium Level 143 MMOL/L (136-145) Potassium Level 4.5 MMOL/L (3.5-5.1) Chloride Level 110 MMOL/L (98-107) H Carbon Dioxide Level 23 MMOL/L (21-32) Anion Gap 10 mmol/L (5-15) Blood Urea Nitrogen 16 mg/dL (7-18) Creatinine 0.8 MG/DL (0.55-1.30) Estimat Glomerular Filtration Rate > 60 mL/min (>60) Glucose Level 85 MG/DL (74-106) Calcium Level 7.7 MG/DL (8.5-10.1) L Phosphorus Level 1.9 MG/DL (2.5-4.9) L Magnesium Level 2.2 MG/DL (1.8-2.4) Total Bilirubin 0.2 MG/DL (0.2-1.0) Aspartate Amino Transf (AST/SGOT) 72 U/L (15-37) H Alanine Aminotransferase (ALT/SGPT) 85 U/L (12-78) H Alkaline Phosphatase 169 U/L (46-116) H Total Protein 6.0 G/DL (6.4-8.2) L Albumin 1.8 G/DL (3.4-5.0) L Globulin 4.2 g/dL Albumin/Globulin Ratio 0.4 (1.0-2.7) L Arterial Blood pH 7.407 (7.350-7.450) Arterial Blood Partial Pressure CO2 35.1 mmHg (35.0-45.0) Arterial Blood Partial Pressure O2 108.3 mmHg (75.0-100.0) H Arterial Blood HCO3 21.6 mmol/L (22.0-26.0) L Arterial Blood Oxygen Saturation 97.7 % (95-100) Arterial Blood Base Excess -2.7 (-2-2) L Ty Test Positive Jackie Kaiser MD Nov 13, 2019 11:56
--- NOTE | 2019-11-13 12:00 | NUR ---
NURSE NOTES: The patient is stable without acute distress or shortness of breath. The patient is still being mildly agitated. G tube residual checked and 60mL noted. Will recheck residual and will closely monitor the patient.
--- NOTE | 2019-11-13 12:20 | Internal Med Progress Note ---
Subjective Date of Service: Nov 13, 2019 Physician Name Gallito Turcios Attending Physician Danny Stark MD Current Medications Medications (Trade) Dose Ordered Sig/Tasha Route PRN Reason Start Time Stop Time Status Last Admin Dose Admin Acetaminophen (Tylenol) 650 mg Q4H PRN ORAL fever 10/30/19 11:15 11/29/19 11:14 11/10/19 19:43 Albuterol/ Ipratropium (Albuterol/ Ipratropium) 3 ml Q4H PRN HHN sob 11/10/19 08:45 11/15/19 08:44 Amiodarone HCl (Cordarone) 100 mg DAILY PEG 11/04/19 09:00 01/29/20 08:59 11/13/19 08:18 Chlorhexidine Gluconate (Megan-Hex 2%) 1 applic DAILY@2000 TOPIC 11/01/19 20:00 01/30/20 19:59 11/12/19 20:24 Heparin Sodium (Porcine) (Heparin 5000 units/ml) 5,000 units EVERY 12 HOURS SUBQ 11/02/19 09:00 12/17/19 08:59 11/12/19 20:25 Levothyroxine Sodium (Synthroid) 50 mcg DAILY@0630 GT 10/31/19 06:30 11/30/19 06:29 11/13/19 05:52 Linezolid 300 ml @ 300 mls/hr Q12HR IVPB 11/02/19 13:30 11/15/19 23:59 11/13/19 08:18 Lorazepam (Ativan 2mg/ml 1ml) 2 mg Q2HR PRN IV For Anxiety 11/06/19 22:30 11/13/19 22:29 11/12/19 07:58 Norepinephrine Bitartrate 4 mg/ Dextrose 254 ml @ 0 mls/hr Q24H IV 10/30/19 22:00 11/29/19 21:59 11/01/19 23:54 Ondansetron HCl (Zofran) 4 mg Q6H PRN IVP Nausea & Vomiting 10/30/19 11:15 11/29/19 11:14 11/12/19 23:52 Pantoprazole (Protonix) 40 mg DAILY IVP 10/31/19 09:00 11/30/19 08:59 11/13/19 08:18 Polyethylene Glycol (Miralax) 17 gm DAILYPRN PRN ORAL Constipation 10/30/19 11:15 11/29/19 11:14 Quetiapine Fumarate (SEROqueL) 100 mg Q12HR GT 10/30/19 23:00 12/14/19 22:59 11/12/19 20:24 Allergies: Coded Allergies: No Known Allergies (Unverified , 10/30/19) ROS Limited/Unobtainable: Yes Subjective 73 YO M with history of esophageal cancer admitted with respiratory failure. Cover for Int Med-Dr Stark. ICU. Intubted and sedated. Objective Last Vital Signs Date Time Temp Pulse Resp B/P (MAP) Pulse Ox O2 Delivery O2 Flow Rate FiO2 11/13/19 11:00 63 16 40 11/13/19 07:00 87/45 (59) 98 11/13/19 04:00 Mechanical Ventilator 11/13/19 04:00 97.7 Laboratory Tests Test 11/13/19 05:05 11/13/19 09:10 White Blood Count 11.1 K/UL (4.8-10.8) H Red Blood Count 2.93 M/UL (4.70-6.10) L Hemoglobin 8.3 G/DL (14.2-18.0) L Hematocrit 25.1 % (42.0-52.0) L Mean Corpuscular Volume 86 FL (80-99) Mean Corpuscular Hemoglobin 28.5 PG (27.0-31.0) Mean Corpuscular Hemoglobin Concent 33.3 G/DL (32.0-36.0) Red Cell Distribution Width 15.8 % (11.6-14.8) H Platelet Count 230 K/UL (150-450) Mean Platelet Volume 4.9 FL (6.5-10.1) L Neutrophils (%) (Auto) 70.2 % (45.0-75.0) Lymphocytes (%) (Auto) 17.6 % (20.0-45.0) L Monocytes (%) (Auto) 8.1 % (1.0-10.0) Eosinophils (%) (Auto) 3.1 % (0.0-3.0) H Basophils (%) (Auto) 1.0 % (0.0-2.0) Sodium Level 143 MMOL/L (136-145) Potassium Level 4.5 MMOL/L (3.5-5.1) Chloride Level 110 MMOL/L (98-107) H Carbon Dioxide Level 23 MMOL/L (21-32) Anion Gap 10 mmol/L (5-15) Blood Urea Nitrogen 16 mg/dL (7-18) Creatinine 0.8 MG/DL (0.55-1.30) Estimat Glomerular Filtration Rate > 60 mL/min (>60) Glucose Level 85 MG/DL (74-106) Calcium Level 7.7 MG/DL (8.5-10.1) L Phosphorus Level 1.9 MG/DL (2.5-4.9) L Magnesium Level 2.2 MG/DL (1.8-2.4) Total Bilirubin 0.2 MG/DL (0.2-1.0) Aspartate Amino Transf (AST/SGOT) 72 U/L (15-37) H Alanine Aminotransferase (ALT/SGPT) 85 U/L (12-78) H Alkaline Phosphatase 169 U/L (46-116) H Total Protein 6.0 G/DL (6.4-8.2) L Albumin 1.8 G/DL (3.4-5.0) L Globulin 4.2 g/dL Albumin/Globulin Ratio 0.4 (1.0-2.7) L Arterial Blood pH 7.407 (7.350-7.450) Arterial Blood Partial Pressure CO2 35.1 mmHg (35.0-45.0) Arterial Blood Partial Pressure O2 108.3 mmHg (75.0-100.0) H Arterial Blood HCO3 21.6 mmol/L (22.0-26.0) L Arterial Blood Oxygen Saturation 97.7 % (95-100) Arterial Blood Base Excess -2.7 (-2-2) L Ty Test Positive Microbiology Date/Time Source Procedure Growth Status 11/11/19 10:15 Blood Blood Culture - Preliminary NO GROWTH AFTER 24 HOURS Resulted 11/11/19 10:00 Blood Blood Culture - Preliminary NO GROWTH AFTER 24 HOURS Resulted 11/11/19 13:32 Nasopharynx Coronavirus COVID-19 PCR (PAL) - Final Complete 11/11/19 13:32 Sputum Gram Stain - Final Resulted 11/11/19 13:32 Sputum Culture - Preliminary Yeast Species Resulted 11/11/19 13:30 Urine,Clean Catch Urine Culture - Preliminary NO GROWTH AFTER 24 HOURS Resulted Intake and Output 11/12/19 11/13/19 19:00 07:00 Intake Total 910 ml 580 ml Output Total 760 ml 1100 ml Balance 150 ml -520 ml Intake Free Water 10 ml IV Total 300 ml 300 ml Tube Feeding 600 ml 220 ml Other 60 ml Output Urine Total 760 ml 600 ml Stool Total 500 ml Objective PHYSICAL EXAMINATION: VITAL SIGNS: Temperature 98.1, respirations 25, pulse 92, blood pressure 95/59. GENERAL: The patient is well-developed, well-nourished male, who is intubated and sedated. HEENT: Eyes, pupils are equal and responsive to light and accommodation. Extraocular movements are intact. NECK: Supple without lymphadenopathy. CHEST: Mech vent; Coarse mechanical breath sounds bilaterally without wheezes or rales. CARDIOVASCULAR: Regular rhythm and rate. S1, S2 are normal without murmurs, rubs, or gallops. ABDOMEN: Soft, nontender, and nondistended. Positive bowel sounds. No evidence of hepatosplenomegaly. Currently, no rebound or guarding noted. EXTREMITIES: Negative for clubbing, cyanosis, or edema. RECTAL/GENITAL: Not performed. NEUROLOGICAL: Unable to assess. Assessment/Plan Assessment/Plan ASSESSMENT: This is a 73-year-old male. 1. Respiratory failure. 2. Pneumonia. 3. Esophageal cancer. 4. Diabetes type 2. 5. Hypertension. 6. Hypercholesterolemia. 7. Atrial fibrillation. 8. Hypothyroidism. 9. Dysphagia. 10. History of prostate cancer. 11. Sepsis=Enterococcus (VRE) TREATMENT: 1. Pneumonia/respiratory failure. A Pulmonary consultation has been obtained with Dr. Jackie Kaiser. An Infectious Disease consultation has been obtained with Dr. Sy. We will follow recommendations of Infectious Disease and Pulmonary. COVID 19=neg 2. Esophageal cancer. 3. Diabetes type 2. A NovoLog sliding scale has been instituted. 4. Hypertension. The patient is currently hypotensive and probable sepsis. 5. Hypercholesterolemia. Continue atorvastatin as above. 6. Atrial fibrillation. Continue amiodarone as above. 7. Hypothyroidism. Continue levothyroxine as above. 8. Dysphagia, status post PEG placement. 9. History of prostate cancer. 10. ABX = linezolid. Gallito Turcios MD Nov 13, 2019 12:20
--- NOTE | 2019-11-13 12:36 | Infectious Diseases Prog Note ---
Assessment/Plan Assessment/Plan A: Low grade fever x1, SP Leukocytosis, neutrophil predominant, recurrent; improving -11/10 u/a neg; ucx NTD -11/08 Cdiff neg Septic shock, sp off of pressors PNA- persistent infiltrates, hypoxia- COVID19 neg x2 Influenza A, sp rx SARS CoV PCR negative x2 (10/29, 11/10) 11/11 CXR: Bilateral diffuse interstitial and airspace infiltrates are unchanged.Stable satisfactory position of endotracheal tube and right jugular port catheter.The heart size is normal. 11/10 sp cx C. albicans 11/09 CXR: Persistent basilar predominant interstitial and airspace infiltrates. Edema and infection are again both possibilities. Also consider superimposed malignancy, particularly given infusion ports. CXR: Bilateral mostly nodular mostly interstitial disease, as described. This could represent interstitial pneumonia or edema, among many other possibilities. However, given the nodular appearance and the presence of an infusion catheter the possibility of nodular metastatic disease should also be considered. Unlikely UTI UA 10-15 WBC UCx: NG VRE bacteremia 10/29 BCx: VRE; 10/31 Bcx neg 10/29 TTE: focal AV sclerosis with adequate cusp excursion. thickened MV leaflets with normal excursion. mild mitral annulus and aortic root calcification. normal TV. no MR. mild TR. PV not visualized. 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 recommend repeating bcx at end of therapy to ensure resolution of bacteremia. If has recurrent fevers, will recommend ILENE. WENDI RN Thank you for this consult. [facility] Will continue to follow the patient with you. Subjective Allergies: Coded Allergies: No Known Allergies (Unverified , 10/30/19) Subjective afebrile leukocytosis improving remains intubated; on 40% Fio2, no PEEP PO2 keeps improving on ABG SARS-COV2 neg Objective Vital Signs Last 24 Hour Vital Signs Date Time Temp Pulse Resp B/P (MAP) Pulse Ox O2 Delivery O2 Flow Rate FiO2 11/13/19 11:00 63 16 40 11/13/19 08:02 66 16 40 11/13/19 07:00 65 16 87/45 (59) 98 11/13/19 06:30 67 20 11/13/19 06:00 67 15 91/55 (67) 99 11/13/19 05:21 71 17 40 11/13/19 05:00 66 16 92/46 (61) 100 11/13/19 04:00 73 11/13/19 04:00 40 11/13/19 04:00 Mechanical Ventilator 11/13/19 04:00 97.7 73 16 92/60 (71) 100 11/13/19 03:37 69 16 40 11/13/19 03:00 70 17 94/51 (65) 100 11/13/19 02:00 65 16 98/56 (70) 100 11/13/19 01:14 66 16 40 11/13/19 01:00 60 16 91/71 (78) 100 11/13/19 00:00 40 11/13/19 00:00 Mechanical Ventilator 11/13/19 00:00 98.0 72 16 109/57 (74) 100 11/13/19 00:00 78 11/12/19 23:27 79 18 40 11/12/19 23:00 78 16 106/54 (71) 100 11/12/19 22:00 73 16 91/47 (62) 100 11/12/19 22:00 91/47 11/12/19 21:04 68 16 40 11/12/19 21:00 97.9 69 16 90/49 (63) 100 11/12/19 20:00 73 16 91/49 (63) 100 11/12/19 20:00 68 11/12/19 20:00 40 11/12/19 20:00 Mechanical Ventilator 11/12/19 19:41 76 17 40 11/12/19 19:00 78 16 96/56 (69) 100 11/12/19 18:00 73 16 112/57 (75) 100 11/12/19 17:00 72 16 98/52 (67) 100 72 11/12/19 16:00 40 11/12/19 16:00 Mechanical Ventilator 11/12/19 16:00 98.0 68 16 97/49 (65) 100 11/12/19 16:00 75 11/12/19 15:00 66 16 98/53 (68) 100 11/12/19 14:57 68 16 40 11/12/19 14:00 69 16 93/50 (64) 100 11/12/19 13:00 69 16 97/69 (78) 100 69 11/12/19 12:58 69 16 40 Height (Feet): 6 Height (Inches): 1.00 Weight (Pounds): 150 Objective Gen: NAD. intubated. HEENT: ETT. CV: S1+S2. no rubs or gallop Resp: coarse. regular. equal chest rise. no wheezes Abd: soft. G tube. nondistended. Skin: warm. dry. Neuro: awake. follows simple commands. calm Microbiology Date/Time Source Procedure Growth Status 11/11/19 10:15 Blood Blood Culture - Preliminary NO GROWTH AFTER 24 HOURS Resulted 11/11/19 10:00 Blood Blood Culture - Preliminary NO GROWTH AFTER 24 HOURS Resulted 11/11/19 13:32 Nasopharynx Coronavirus COVID-19 PCR (PAL) - Final Complete 11/11/19 13:32 Sputum Gram Stain - Final Resulted 11/11/19 13:32 Sputum Culture - Preliminary Yeast Species Resulted 11/11/19 13:30 Urine,Clean Catch Urine Culture - Preliminary NO GROWTH AFTER 24 HOURS Resulted Laboratory Tests Test 11/13/19 05:05 11/13/19 09:10 White Blood Count 11.1 K/UL (4.8-10.8) H Red Blood Count 2.93 M/UL (4.70-6.10) L Hemoglobin 8.3 G/DL (14.2-18.0) L Hematocrit 25.1 % (42.0-52.0) L Mean Corpuscular Volume 86 FL (80-99) Mean Corpuscular Hemoglobin 28.5 PG (27.0-31.0) Mean Corpuscular Hemoglobin Concent 33.3 G/DL (32.0-36.0) Red Cell Distribution Width 15.8 % (11.6-14.8) H Platelet Count 230 K/UL (150-450) Mean Platelet Volume 4.9 FL (6.5-10.1) L Neutrophils (%) (Auto) 70.2 % (45.0-75.0) Lymphocytes (%) (Auto) 17.6 % (20.0-45.0) L Monocytes (%) (Auto) 8.1 % (1.0-10.0) Eosinophils (%) (Auto) 3.1 % (0.0-3.0) H Basophils (%) (Auto) 1.0 % (0.0-2.0) Sodium Level 143 MMOL/L (136-145) Potassium Level 4.5 MMOL/L (3.5-5.1) Chloride Level 110 MMOL/L (98-107) H Carbon Dioxide Level 23 MMOL/L (21-32) Anion Gap 10 mmol/L (5-15) Blood Urea Nitrogen 16 mg/dL (7-18) Creatinine 0.8 MG/DL (0.55-1.30) Estimat Glomerular Filtration Rate > 60 mL/min (>60) Glucose Level 85 MG/DL (74-106) Calcium Level 7.7 MG/DL (8.5-10.1) L Phosphorus Level 1.9 MG/DL (2.5-4.9) L Magnesium Level 2.2 MG/DL (1.8-2.4) Total Bilirubin 0.2 MG/DL (0.2-1.0) Aspartate Amino Transf (AST/SGOT) 72 U/L (15-37) H Alanine Aminotransferase (ALT/SGPT) 85 U/L (12-78) H Alkaline Phosphatase 169 U/L (46-116) H Total Protein 6.0 G/DL (6.4-8.2) L Albumin 1.8 G/DL (3.4-5.0) L Globulin 4.2 g/dL Albumin/Globulin Ratio 0.4 (1.0-2.7) L Arterial Blood pH 7.407 (7.350-7.450) Arterial Blood Partial Pressure CO2 35.1 mmHg (35.0-45.0) Arterial Blood Partial Pressure O2 108.3 mmHg (75.0-100.0) H Arterial Blood HCO3 21.6 mmol/L (22.0-26.0) L Arterial Blood Oxygen Saturation 97.7 % (95-100) Arterial Blood Base Excess -2.7 (-2-2) L Ty Test Positive Current Medications Medications (Trade) Dose Ordered Sig/Tasha Route PRN Reason Start Time Stop Time Status Last Admin Dose Admin Acetaminophen (Tylenol) 650 mg Q4H PRN ORAL fever 10/30/19 11:15 11/29/19 11:14 11/10/19 19:43 Albuterol/ Ipratropium (Albuterol/ Ipratropium) 3 ml Q4H PRN HHN sob 11/10/19 08:45 11/15/19 08:44 Amiodarone HCl (Cordarone) 100 mg DAILY PEG 11/04/19 09:00 01/29/20 08:59 11/13/19 08:18 Chlorhexidine Gluconate (Megan-Hex 2%) 1 applic DAILY@1999 TOPIC 11/01/19 20:00 01/30/20 19:59 11/12/19 20:24 Heparin Sodium (Porcine) (Heparin 5000 units/ml) 5,000 units EVERY 12 HOURS SUBQ 11/02/19 09:00 12/17/19 08:59 11/12/19 20:25 Levothyroxine Sodium (Synthroid) 50 mcg DAILY@0630 GT 10/31/19 06:30 11/30/19 06:29 11/13/19 05:52 Linezolid 300 ml @ 300 mls/hr Q12HR IVPB 11/02/19 13:30 11/15/19 23:59 11/13/19 08:18 Lorazepam (Ativan 2mg/ml 1ml) 2 mg Q2HR PRN IV For Anxiety 11/06/19 22:30 11/13/19 22:29 11/12/19 07:58 Norepinephrine Bitartrate 4 mg/ Dextrose 254 ml @ 0 mls/hr Q24H IV 10/30/19 22:00 11/29/19 21:59 11/01/19 23:54 Ondansetron HCl (Zofran) 4 mg Q6H PRN IVP Nausea & Vomiting 10/30/19 11:15 11/29/19 11:14 11/12/19 23:52 Pantoprazole (Protonix) 40 mg DAILY IVP 10/31/19 09:00 11/30/19 08:59 11/13/19 08:18 Polyethylene Glycol (Miralax) 17 gm DAILYPRN PRN ORAL Constipation 10/30/19 11:15 11/29/19 11:14 Quetiapine Fumarate (SEROqueL) 100 mg Q12HR GT 10/30/19 23:00 12/14/19 22:59 11/12/19 20:24 Daphne Sy M.D. Nov 13, 2019 12:36
--- NOTE | 2019-11-13 13:35 | NUR ---
CASE MANAGEMENT: REVIEW 11/13/19 SI: RESP FAILURE . PNA . INFLUENZA . VRE (+) BACTEREMIA 97.7 73 16 92/60 100% MECH VENT FIO2 40 WBC 11.1 H/H 8.3/25.1 CL- 110 CA+ 7.7 PHOS 1.9 AST/ALT 72/85 ALKP 169 ALBUMIN 1.8 ABG: pO2 108.3 HCO3-21.6 IS:IV LEVOPHED [id number] AMIODARONE GT QD IV ZYVOX BID IV PROTONIX QD SEROQUEL GT BID HEPARIN SQ BID SYNTHROID GT QAM AYANA-HEX 2% TP QD GTUBE FEEDING DROPLET ISOLATION CHEST X-RAY- No significant interval change ICU STATUS DCP: [facility]: NON-VIOLENT RESTRAINTS MONITORING MONITOR RESPIRATORY RATE ADJUST FiO2 CXR THIS AM WBC -DECREASING URINE CX- (+) YEAST REPEAT COVID-19- NEGATIVE
--- NOTE | 2019-11-13 14:00 | NUR ---
NURSE NOTES: The patient is stable without acute distress or shortness of breath. Tolerating ventilator setting well. Suction the patient. Will continue plan of care.
--- NOTE | 2019-11-13 14:00 | NUR ---
NURSE NOTES: Notified Dr. Wellington again regarding the need of Dotiffanyff as the patient failed ST evaluation. Will continue plan of care. Addendum: 11/13/19 at 1626 by Gold Victor RN Wrong patient.
--- NOTE | 2019-11-13 15:00 | NUR ---
NURSE NOTES: Dr. Wyatt at the bedside assessed the patient. Notified Dr. Wytat regarding elevated blood sugar in the morning with IVF. Dr. Wyatt will review and order. Will continue plan of care. Addendum: 11/13/19 at 1626 by Gold Victor RN wrong patient.
--- NOTE | 2019-11-13 16:00 | NUR ---
NURSE NOTES: The patient is stable without acute distress or shortness of breath. Tube feeding residual of 20mL noted. Will closely monitor the patient. Suctioned the secretion. Will continue plan of care.
--- NOTE | 2019-11-13 18:00 | NUR ---
NURSE NOTES: The patient is stable without acute distress or shortness of breath. Suctioned the patient. Checked residual and 40mL noted. Tolerating mechanical ventilator well. Bilateral soft wrist restraints on and skin and circulation intact. Patel and rectal tube intact and draining well by gravity. Will continue plan of care.
--- NOTE | 2019-11-13 19:15 | NUR ---
HAND-OFF: Report given to VENKAT Gimenez. The patient is resting on the bed without acute distress or shortness of breath. The pateint's bed in the lowest position, call light in reach, and fall and aspiration precaution reinforced. On mechanical ventilator on ordered setting and tolerating well. G tube intact and patent and tube feeding formula running per order. R femoral TLC intact and patent. Patel and rectal tube intact and draining by gravity. Bilateral soft wrist restraints on and circulation and skin is intact. The patient is stable at this time. Endorsed plan of care.
--- NOTE | 2019-11-13 19:16 | NUR ---
NURSE NOTES: Endorsement received from VENKAT Sweeney. Patient awake. Orally intubated with 7.5, 21 lipline. AC 16, 600, 40%. GT patent and intact. On Glucerna 1.5 at 25ml/hr. 50ml residual. Patel catheter in place. Rectal tube present. Noted with brown liquid stool in the bag and rectal tube. With soft bilateral wrists restraints for attempting to pull out tubings. On P200 mattress. Head of bed elevated. Bed locked and in low position. Call light within reach.
--- NOTE | 2019-11-13 20:50 | Cardiology Progress Note ---
Assessment/Plan Assessment/Plan 1. Paroxysmal episodes of atrial fibrillation. 2. Respiratory failure. 3. Influenza A positive. covid negX1 4. Malignant neoplasm of the larynx. 5. History of hypertension. 6. History of hyperlipidemia. 7. History of hypothyroidism. 8. Respiratory failure on a mechanical ventilator. 9. Diabetes mellitus type 2. 10. Coagulopathy. 11. Abnormal liver function tests. 12. Hypotension likely from sepsis and shock 13. VRE bacteremia 14. Hypotension resolved influenza positive await repeat covid testing yest bp was lwo biut after several boluses bp has been more stable to day off pressor anemic but stable wbc improving final echo noted tele reviewed sinus no afib documented wean when feasible temp is better Subjective Subjective on vent Objective Last 24 Hour Vital Signs Date Time Temp Pulse Resp B/P (MAP) Pulse Ox O2 Delivery O2 Flow Rate FiO2 11/13/19 19:13 69 17 40 11/13/19 19:00 70 16 110/56 (74) 100 11/13/19 18:00 76 17 124/63 (83) 100 11/13/19 17:00 62 18 127/94 (105) 100 11/13/19 16:00 40 11/13/19 16:00 Mechanical Ventilator 11/13/19 16:00 98.0 61 16 112/47 (68) 100 11/13/19 16:00 60 11/13/19 15:22 62 16 40 11/13/19 15:00 72 15 119/60 (79) 100 11/13/19 14:00 65 16 111/55 (73) 100 11/13/19 13:00 63 16 113/57 (75) 100 11/13/19 12:00 40 11/13/19 12:00 Mechanical Ventilator 11/13/19 12:00 97.7 65 17 106/56 (73) 100 11/13/19 12:00 60 11/13/19 11:00 68 16 107/53 (71) 100 11/13/19 11:00 63 16 40 11/13/19 10:00 72 18 100/51 (67) 97 11/13/19 09:00 64 16 101/58 (72) 100 11/13/19 08:02 66 16 40 11/13/19 08:00 Mechanical Ventilator 11/13/19 08:00 97.5 66 16 95/50 (65) 100 66 11/13/19 08:00 40 11/13/19 08:00 64 11/13/19 07:00 65 16 87/45 (59) 98 11/13/19 06:30 67 20 11/13/19 06:00 67 15 91/55 (67) 99 11/13/19 05:21 71 17 40 11/13/19 05:00 66 16 92/46 (61) 100 11/13/19 04:00 73 11/13/19 04:00 40 11/13/19 04:00 Mechanical Ventilator 11/13/19 04:00 97.7 73 16 92/60 (71) 100 11/13/19 03:37 69 16 40 11/13/19 03:00 70 17 94/51 (65) 100 11/13/19 02:00 65 16 98/56 (70) 100 11/13/19 01:14 66 16 40 11/13/19 01:00 60 16 91/71 (78) 100 11/13/19 00:00 40 11/13/19 00:00 Mechanical Ventilator 11/13/19 00:00 98.0 72 16 109/57 (74) 100 11/13/19 00:00 78 11/12/19 23:27 79 18 40 11/12/19 23:00 78 16 106/54 (71) 100 11/12/19 22:00 73 16 91/47 (62) 100 11/12/19 22:00 91/47 11/12/19 21:04 68 16 40 11/12/19 21:00 97.9 69 16 90/49 (63) 100 General Appearance: no apparent distress, on vent, patient on isolation, isolation precautions Intake and Output 11/12/19 11/13/19 19:00 07:00 Intake Total 910 ml 580 ml Output Total 760 ml 1100 ml Balance 150 ml -520 ml Intake Free Water 10 ml IV Total 300 ml 300 ml Tube Feeding 600 ml 220 ml Other 60 ml Output Urine Total 760 ml 600 ml Stool Total 500 ml Laboratory Tests Test 11/13/19 05:05 11/13/19 09:10 White Blood Count 11.1 K/UL (4.8-10.8) H Red Blood Count 2.93 M/UL (4.70-6.10) L Hemoglobin 8.3 G/DL (14.2-18.0) L Hematocrit 25.1 % (42.0-52.0) L Mean Corpuscular Volume 86 FL (80-99) Mean Corpuscular Hemoglobin 28.5 PG (27.0-31.0) Mean Corpuscular Hemoglobin Concent 33.3 G/DL (32.0-36.0) Red Cell Distribution Width 15.8 % (11.6-14.8) H Platelet Count 230 K/UL (150-450) Mean Platelet Volume 4.9 FL (6.5-10.1) L Neutrophils (%) (Auto) 70.2 % (45.0-75.0) Lymphocytes (%) (Auto) 17.6 % (20.0-45.0) L Monocytes (%) (Auto) 8.1 % (1.0-10.0) Eosinophils (%) (Auto) 3.1 % (0.0-3.0) H Basophils (%) (Auto) 1.0 % (0.0-2.0) Sodium Level 143 MMOL/L (136-145) Potassium Level 4.5 MMOL/L (3.5-5.1) Chloride Level 110 MMOL/L (98-107) H Carbon Dioxide Level 23 MMOL/L (21-32) Anion Gap 10 mmol/L (5-15) Blood Urea Nitrogen 16 mg/dL (7-18) Creatinine 0.8 MG/DL (0.55-1.30) Estimat Glomerular Filtration Rate > 60 mL/min (>60) Glucose Level 85 MG/DL (74-106) Calcium Level 7.7 MG/DL (8.5-10.1) L Phosphorus Level 1.9 MG/DL (2.5-4.9) L Magnesium Level 2.2 MG/DL (1.8-2.4) Total Bilirubin 0.2 MG/DL (0.2-1.0) Aspartate Amino Transf (AST/SGOT) 72 U/L (15-37) H Alanine Aminotransferase (ALT/SGPT) 85 U/L (12-78) H Alkaline Phosphatase 169 U/L (46-116) H Total Protein 6.0 G/DL (6.4-8.2) L Albumin 1.8 G/DL (3.4-5.0) L Globulin 4.2 g/dL Albumin/Globulin Ratio 0.4 (1.0-2.7) L Arterial Blood pH 7.407 (7.350-7.450) Arterial Blood Partial Pressure CO2 35.1 mmHg (35.0-45.0) Arterial Blood Partial Pressure O2 108.3 mmHg (75.0-100.0) H Arterial Blood HCO3 21.6 mmol/L (22.0-26.0) L Arterial Blood Oxygen Saturation 97.7 % (95-100) Arterial Blood Base Excess -2.7 (-2-2) L Ty Test Positive Microbiology Date/Time Source Procedure Growth Status 11/11/19 10:15 Blood Blood Culture - Preliminary NO GROWTH AFTER 24 HOURS Resulted 11/11/19 10:00 Blood Blood Culture - Preliminary NO GROWTH AFTER 24 HOURS Resulted 11/11/19 13:32 Nasopharynx Coronavirus COVID-19 PCR (PAL) - Final Complete 11/11/19 13:32 Sputum Gram Stain - Final Resulted 11/11/19 13:32 Sputum Culture - Preliminary Yeast Species Resulted 11/11/19 13:30 Urine,Clean Catch Urine Culture - Preliminary NO GROWTH AFTER 24 HOURS Resulted Carlos Slade MD Nov 13, 2019 20:50
[2019-11-13] MEDS: Dyna-Hex 2% Top Sol 2oz TOPIC SCH (20:59)
--- NOTE | 2019-11-13 21:00 | NUR ---
NURSE NOTES: Patient awake, calm at this time. No shortness of breath.
--- NOTE | 2019-11-13 23:00 | NUR ---
NURSE NOTES: Secretion suctioned. Patient afebrile.
[2019-11-14] VITALS (28 sets, daily range): BP systolic 86–134; BP diastolic 49–76
--- NOTE | 2019-11-14 01:00 | NUR ---
NURSE NOTES: Patients repositioned. Vitals remains stable .
--- NOTE | 2019-11-14 02:00 | NUR ---
NURSE NOTES: Residual rechecked, no residual. Feeding increased to 35ml/hr.
--- NOTE | 2019-11-14 03:00 | NUR ---
NURSE NOTES: Bed bath, oral care, change of linens done.
--- NOTE | 2019-11-14 05:00 | NUR ---
NURSE NOTES: No shortness of breath. Secretion suctioned.
[2019-11-14 05:53] LABS: BASOPHILS % (AUTO) 1.7 % (0.0-2.0); EOSINOPHILS % (AUTO) 4.1 % (0.0-3.0); HEMATOCRIT 24.6 % (42.0-52.0); HEMOGLOBIN 8.3 G/DL (14.2-18.0); LYMPHOCYTES % (AUTO) 26.3 % (20.0-45.0); MEAN CORPUSCULAR VOLUME 85 FL (80-99); MONOCYTES % (AUTO) 9.3 % (1.0-10.0); NEUTROPHILS % (AUTO) 58.5 % (45.0-75.0); PLATELET COUNT 223 K/UL (150-450); RED BLOOD COUNT 2.89 M/UL (4.70-6.10); RED CELL DISTRIBUTION WIDTH 16.3 % (11.6-14.8)
[2019-11-14 06:10] LABS: ANION GAP 11 mmol/L (5-15); BLOOD UREA NITROGEN 14 mg/dL (7-18); CALCIUM 7.8 MG/DL (8.5-10.1); CARBON DIOXIDE 22 MMOL/L (21-32); CHLORIDE 110 MMOL/L (98-107); CREATININE 0.8 MG/DL (0.55-1.30); PHOSPHORUS 2.2 MG/DL (2.5-4.9); POTASSIUM 4.1 MMOL/L (3.5-5.1); SODIUM 143 MMOL/L (136-145)
--- NOTE | 2019-11-14 07:27 | NUR ---
HAND-OFF: Report given to VENKAT Lennon.
--- NOTE | 2019-11-14 07:28 | NUR ---
NURSE NOTES: Received report from VENKAT Gimenez. Patient awake and responsive to verbal, able to follow simple commands. ETT 7.5/21cm at lip line with vent setting AC 16, VT 600 and FiO2 40%. Gtube intact and started Glucerna 1.5 35ml/hr. Rectal tube intact and draining brown liquid color stool. Right femoral TLC intact and clean with TKO. Bilateral soft wrist restraints on. Both hands are warm to touch. Kept dry, clean, comfortable and HOB>30. Will continue plan of care.
--- NOTE | 2019-11-14 09:02 | NUR ---
NURSE NOTES: Repositioned patient. Provided oral care.
[2019-11-14] MEDS: Pantoprazole Inj IVP SCH (09:16)
[2019-11-14] MEDS: Amiodarone 200mg tab PEG SCH (09:16)
[2019-11-14] MEDS: Heparin 5000 units/ml inj SUBQ SCH ×2 (09:21→21:00)
--- NOTE | 2019-11-14 11:18 | NUR ---
NURSE NOTES: See by Dr. Kaiser and assessed patient.
--- NOTE | 2019-11-14 11:31 | Pulmonolgy Critical Care Note ---
Critical Care - Asmt/Plan Problems: (1) Acute respiratory failure (2) Influenza A (3) Septic shock (4) Enterococcal bacteremia (5) Nosocomial pneumonia (6) COPD (chronic obstructive pulmonary disease) (7) Suspected 2019-nCoV infection (8) Atrial fibrillation (9) Severe anemia (10) Hypothyroidism (11) Psychosis Respiratory: monitor respiratory rate, adjust FIO2, CXR, weaning trial Cardiac: continue to monitor HR/BP Renal: F/U I&O Infectious Disease: check cultures Gastrointestinal: continue feedings/current rate Endocrine: monitor blood sugar Hematologic: monitor H/H, transfuse if hgb<8.5 Affect: PRN ativan Time Spent (Minutes): 40 Notes Reviewed: cardio, renal Discussed with: nurses, consultants, 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 risk 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 - Objective Last 24 Hour Vital Signs Date Time Temp Pulse Resp B/P (MAP) Pulse Ox O2 Delivery O2 Flow Rate FiO2 11/14/19 10:13 80 19 92 Mechanical Ventilator 30 11/14/19 09:18 80 19 40 11/14/19 07:19 66 16 40 11/14/19 06:30 68 20 11/14/19 06:00 73 16 109/58 (75) 94 11/14/19 05:14 64 18 40 11/14/19 05:00 66 16 112/54 (73) 100 11/14/19 04:00 Mechanical Ventilator 11/14/19 04:00 63 11/14/19 04:00 40 11/14/19 04:00 97.9 64 16 118/62 (80) 93 11/14/19 03:00 66 16 110/58 (75) 100 11/14/19 02:00 75 19 124/59 (80) 99 11/14/19 01:26 67 18 40 11/14/19 01:00 70 17 97/59 (72) 100 11/14/19 00:00 70 11/14/19 00:00 98.0 68 16 104/53 (70) 100 11/14/19 00:00 Mechanical Ventilator 11/14/19 00:00 40 11/13/19 23:30 67 16 90/52 (65) 100 11/13/19 23:00 71 16 86/52 (63) 100 11/13/19 22:59 69 17 40 11/13/19 22:00 78 15 112/62 (79) 99 11/13/19 21:15 67 16 40 11/13/19 21:02 125/80 11/13/19 21:00 69 15 135/59 (84) 100 11/13/19 20:00 40 11/13/19 20:00 97.9 72 17 105/61 (76) 100 11/13/19 20:00 68 11/13/19 20:00 Mechanical Ventilator 11/13/19 19:13 69 17 40 11/13/19 19:00 70 16 110/56 (74) 100 11/13/19 18:00 76 17 124/63 (83) 100 11/13/19 17:00 62 18 127/94 (105) 100 11/13/19 16:00 40 11/13/19 16:00 Mechanical Ventilator 11/13/19 16:00 98.0 61 16 112/47 (68) 100 11/13/19 16:00 60 11/13/19 15:22 62 16 40 11/13/19 15:00 72 15 119/60 (79) 100 11/13/19 14:00 65 16 111/55 (73) 100 11/13/19 13:00 63 16 113/57 (75) 100 11/13/19 12:00 40 11/13/19 12:00 Mechanical Ventilator 11/13/19 12:00 97.7 65 17 106/56 (73) 100 11/13/19 12:00 60 Status: awake Condition: improving HEENT: atraumatic Neck: full ROM Heart: HR/BP stable, HR/BP unstable Abdomen: soft, non-tender, feeding tube Decubiti: location Micro: Microbiology Date/Time Source Procedure Growth Status 11/11/19 13:32 Nasopharynx Coronavirus COVID-19 PCR (PAL) - Final Complete 11/11/19 13:32 Sputum Gram Stain - Final Resulted 11/11/19 13:32 Sputum Culture - Preliminary Mae Tropicalis Gram Negative Bacillus 1 Resulted 11/11/19 13:30 Urine,Clean Catch Urine Culture - Final NO GROWTH AFTER 48 HOURS Complete Critical Care - Subjective ROS Limited/Unobtainable: Yes Condition: critical EKG Rhythm: Sinus Rhythm FI02: 30 Vent Support Breath Rate: 16 Vent Support Mode: AC Vent Tidal Volume: 600 Sputum Amount: Small PEEP: 0.0 PIP: 22 Tube Feeding Amount: 0 I&O: Intake and Output 11/13/19 11/14/19 19:00 07:00 Intake Total 540 ml 615 ml Output Total 760 ml 520 ml Balance -220 ml 95 ml IV Total 300 ml 300 ml Tube Feeding 240 ml 255 ml Other 60 ml Output Urine Total 360 ml 520 ml Stool Total 400 ml ET-Tube: 7.5 ET Position: 21 Labs: Laboratory Tests Test 11/14/19 03:40 White Blood Count 7.0 K/UL (4.8-10.8) Red Blood Count 2.89 M/UL (4.70-6.10) L Hemoglobin 8.3 G/DL (14.2-18.0) L Hematocrit 24.6 % (42.0-52.0) L Mean Corpuscular Volume 85 FL (80-99) Mean Corpuscular Hemoglobin 28.6 PG (27.0-31.0) Mean Corpuscular Hemoglobin Concent 33.6 G/DL (32.0-36.0) Red Cell Distribution Width 16.3 % (11.6-14.8) H Platelet Count 223 K/UL (150-450) Mean Platelet Volume 4.8 FL (6.5-10.1) L Neutrophils (%) (Auto) 58.5 % (45.0-75.0) Lymphocytes (%) (Auto) 26.3 % (20.0-45.0) Monocytes (%) (Auto) 9.3 % (1.0-10.0) Eosinophils (%) (Auto) 4.1 % (0.0-3.0) H Basophils (%) (Auto) 1.7 % (0.0-2.0) Sodium Level 143 MMOL/L (136-145) Potassium Level 4.1 MMOL/L (3.5-5.1) Chloride Level 110 MMOL/L (98-107) H Carbon Dioxide Level 22 MMOL/L (21-32) Anion Gap 11 mmol/L (5-15) Blood Urea Nitrogen 14 mg/dL (7-18) Creatinine 0.8 MG/DL (0.55-1.30) Estimat Glomerular Filtration Rate > 60 mL/min (>60) Glucose Level 86 MG/DL (74-106) Calcium Level 7.8 MG/DL (8.5-10.1) L Phosphorus Level 2.2 MG/DL (2.5-4.9) L Magnesium Level 2.0 MG/DL (1.8-2.4) Jackie Kaiser MD Nov 14, 2019 11:31
--- NOTE | 2019-11-14 11:35 | NUR ---
RESPIRATORY NOTES: Attempted to wean patient at 1135. Placed Patient on PS +8 PEEP +0 FIO2 40%. Patient is currently anxious. RR 34, HR 81, SPO2 97, VT 394. Will continue to monitor.
--- NOTE | 2019-11-14 12:23 | Infectious Diseases Prog Note ---
Assessment/Plan Assessment/Plan A: Low grade fever x1, SP Leukocytosis, neutrophil predominant, recurrent; improving -11/10 u/a neg; ucx NTD -11/08 Cdiff neg Septic shock, sp off of pressors PNA- persistent infiltrates, hypoxia- COVID19 neg x2 Influenza A, sp rx SARS CoV PCR negative x2 (10/29, 11/10) 11/11 CXR: Bilateral diffuse interstitial and airspace infiltrates are unchanged.Stable satisfactory position of endotracheal tube and right jugular port catheter.The heart size is normal. 11/10 sp cx C. tropicalis, GNR 11/09 CXR: Persistent basilar predominant interstitial and airspace infiltrates. Edema and infection are again both possibilities. Also consider superimposed malignancy, particularly given infusion ports. CXR: Bilateral mostly nodular mostly interstitial disease, as described. This could represent interstitial pneumonia or edema, among many other possibilities. However, given the nodular appearance and the presence of an infusion catheter the possibility of nodular metastatic disease should also be considered. Unlikely UTI UA 10-15 WBC UCx: NG VRE bacteremia 10/29 BCx: VRE; 10/31 Bcx neg 10/29 TTE: focal AV sclerosis with adequate cusp excursion. thickened MV leaflets with normal excursion. mild mitral annulus and aortic root calcification. normal TV. no MR. mild TR. PV not visualized. QTc 552 Afib COPD Hypothyroid Dyslipidemia HTN DM Anemia CVA G tube, h/o abscess complication head and neck cancer Plan: Linezolid #/ for VRE bacteremia -Start empiric Zosyn for GNR in sputum cx 11/03 Tamiflu #5 11/03 DC amikacin and ertapenem #4 11/01 SP Vanc #3 monitor temp and CBC monitor resp status Continue COVID19 isolation as long as patient remains intubated f/u bcx TTE without severe valve insufficiency and bacteremia low grade. recommend repeating bcx at end of therapy to ensure resolution of bacteremia. If has recurrent fevers, will recommend ILENE. WENDI RN Thank you for this consult. [facility] Will continue to follow the patient with you. Subjective Allergies: Coded Allergies: No Known Allergies (Unverified , 10/30/19) Subjective afebrile leukocytosis resolved remains intubated; on 40% Fio2, no PEEP Objective Vital Signs Last 24 Hour Vital Signs Date Time Temp Pulse Resp B/P (MAP) Pulse Ox O2 Delivery O2 Flow Rate FiO2 11/14/19 12:00 81 27 125/60 (81) 100 11/14/19 11:00 85 18 123/68 (86) 98 11/14/19 10:13 80 19 92 Mechanical Ventilator 30 11/14/19 10:00 85 21 134/53 (80) 90 11/14/19 09:18 80 19 40 11/14/19 09:00 79 18 123/63 (83) 90 11/14/19 08:00 98.2 67 14 105/69 (81) 98 11/14/19 07:19 66 16 40 11/14/19 07:00 68 16 117/62 (80) 96 11/14/19 06:30 68 20 11/14/19 06:00 73 16 109/58 (75) 94 11/14/19 05:14 64 18 40 11/14/19 05:00 66 16 112/54 (73) 100 11/14/19 04:00 Mechanical Ventilator 11/14/19 04:00 63 11/14/19 04:00 40 11/14/19 04:00 97.9 64 16 118/62 (80) 93 11/14/19 03:00 66 16 110/58 (75) 100 11/14/19 02:00 75 19 124/59 (80) 99 11/14/19 01:26 67 18 40 11/14/19 01:00 70 17 97/59 (72) 100 11/14/19 00:00 70 11/14/19 00:00 98.0 68 16 104/53 (70) 100 11/14/19 00:00 Mechanical Ventilator 11/14/19 00:00 40 11/13/19 23:30 67 16 90/52 (65) 100 11/13/19 23:00 71 16 86/52 (63) 100 11/13/19 22:59 69 17 40 11/13/19 22:00 78 15 112/62 (79) 99 11/13/19 21:15 67 16 40 11/13/19 21:02 125/80 11/13/19 21:00 69 15 135/59 (84) 100 11/13/19 20:00 40 11/13/19 20:00 97.9 72 17 105/61 (76) 100 11/13/19 20:00 68 11/13/19 20:00 Mechanical Ventilator 11/13/19 19:13 69 17 40 11/13/19 19:00 70 16 110/56 (74) 100 11/13/19 18:00 76 17 124/63 (83) 100 11/13/19 17:00 62 18 127/94 (105) 100 11/13/19 16:00 40 11/13/19 16:00 Mechanical Ventilator 11/13/19 16:00 98.0 61 16 112/47 (68) 100 11/13/19 16:00 60 11/13/19 15:22 62 16 40 11/13/19 15:00 72 15 119/60 (79) 100 11/13/19 14:00 65 16 111/55 (73) 100 11/13/19 13:00 63 16 113/57 (75) 100 Height (Feet): 6 Height (Inches): 1.00 Weight (Pounds): 150 Objective Gen: NAD. intubated. HEENT: ETT. CV: S1+S2. no rubs or gallop Resp: coarse. regular. equal chest rise. no wheezes Abd: soft. G tube. nondistended. Skin: warm. dry. Neuro: awake. follows simple commands. calm Microbiology Date/Time Source Procedure Growth Status 11/11/19 13:32 Nasopharynx Coronavirus COVID-19 PCR (PAL) - Final Complete 11/11/19 13:32 Sputum Gram Stain - Final Resulted 11/11/19 13:32 Sputum Culture - Preliminary Mae Tropicalis Gram Negative Bacillus 1 Resulted 11/11/19 13:30 Urine,Clean Catch Urine Culture - Final NO GROWTH AFTER 48 HOURS Complete Laboratory Tests Test 11/14/19 03:40 White Blood Count 7.0 K/UL (4.8-10.8) Red Blood Count 2.89 M/UL (4.70-6.10) L Hemoglobin 8.3 G/DL (14.2-18.0) L Hematocrit 24.6 % (42.0-52.0) L Mean Corpuscular Volume 85 FL (80-99) Mean Corpuscular Hemoglobin 28.6 PG (27.0-31.0) Mean Corpuscular Hemoglobin Concent 33.6 G/DL (32.0-36.0) Red Cell Distribution Width 16.3 % (11.6-14.8) H Platelet Count 223 K/UL (150-450) Mean Platelet Volume 4.8 FL (6.5-10.1) L Neutrophils (%) (Auto) 58.5 % (45.0-75.0) Lymphocytes (%) (Auto) 26.3 % (20.0-45.0) Monocytes (%) (Auto) 9.3 % (1.0-10.0) Eosinophils (%) (Auto) 4.1 % (0.0-3.0) H Basophils (%) (Auto) 1.7 % (0.0-2.0) Sodium Level 143 MMOL/L (136-145) Potassium Level 4.1 MMOL/L (3.5-5.1) Chloride Level 110 MMOL/L (98-107) H Carbon Dioxide Level 22 MMOL/L (21-32) Anion Gap 11 mmol/L (5-15) Blood Urea Nitrogen 14 mg/dL (7-18) Creatinine 0.8 MG/DL (0.55-1.30) Estimat Glomerular Filtration Rate > 60 mL/min (>60) Glucose Level 86 MG/DL (74-106) Calcium Level 7.8 MG/DL (8.5-10.1) L Phosphorus Level 2.2 MG/DL (2.5-4.9) L Magnesium Level 2.0 MG/DL (1.8-2.4) Current Medications Medications (Trade) Dose Ordered Sig/Tasha Route PRN Reason Start Time Stop Time Status Last Admin Dose Admin Acetaminophen (Tylenol) 650 mg Q4H PRN ORAL fever 10/30/19 11:15 11/29/19 11:14 11/10/19 19:43 Albuterol/ Ipratropium (Albuterol/ Ipratropium) 3 ml Q4H PRN HHN sob 11/10/19 08:45 11/15/19 08:44 Amiodarone HCl (Cordarone) 100 mg DAILY PEG 11/04/19 09:00 01/29/20 08:59 11/14/19 09:16 Chlorhexidine Gluconate (Megan-Hex 2%) 1 applic DAILY@2000 TOPIC 11/01/19 20:00 01/30/20 19:59 11/13/19 20:59 Heparin Sodium (Porcine) (Heparin 5000 units/ml) 5,000 units EVERY 12 HOURS SUBQ 11/02/19 09:00 12/17/19 08:59 11/14/19 09:21 Levothyroxine Sodium (Synthroid) 50 mcg DAILY@0630 GT 10/31/19 06:30 11/30/19 06:29 11/14/19 06:13 Linezolid 300 ml @ 300 mls/hr Q12HR IVPB 11/02/19 13:30 11/15/19 23:59 11/14/19 09:16 Norepinephrine Bitartrate 4 mg/ Dextrose 254 ml @ 0 mls/hr Q24H IV 10/30/19 22:00 11/29/19 21:59 11/01/19 23:54 Ondansetron HCl (Zofran) 4 mg Q6H PRN IVP Nausea & Vomiting 10/30/19 11:15 11/29/19 11:14 11/12/19 23:52 Pantoprazole (Protonix) 40 mg DAILY IVP 10/31/19 09:00 11/30/19 08:59 11/14/19 09:16 Polyethylene Glycol (Miralax) 17 gm DAILYPRN PRN ORAL Constipation 10/30/19 11:15 11/29/19 11:14 Quetiapine Fumarate (SEROqueL) 100 mg Q12HR GT 10/30/19 23:00 12/14/19 22:59 11/14/19 09:15 Sodium Phosphate 30 mm/Sodium Chloride 285 ml @ 47.5 mls/hr ONCE IV 11/14/19 13:00 11/14/19 19:00 Daphne Sy M.D. Nov 14, 2019 12:23
[2019-11-14] MEDS ORDERED: Sodium Phosphate 30 MM in NS 275 ML IV SCH (13:00)
--- NOTE | 2019-11-14 13:44 | NUR ---
NURSE NOTES: Repositioned patient. Oral and ETT suction given.
[2019-11-14] MEDS: Piperacillin/Tazobactam 3.375 GM in NS 110 ML IVPB SCH ×2 (14:00→21:01)
--- NOTE | 2019-11-14 16:11 | NUR ---
NURSE NOTES: Repositioned patient. Oral and ETT care given. Still noted with moderate yellow thick secretion.
--- NOTE | 2019-11-14 16:26 | NUR ---
MARKER HAND NOTE PATIENT PREVIOUSLY SERVICED BY [facility] T: [phone] SPOKE WITH ISI WHO WILL FAX OR E-MAIL LETTER OF SERVICES DISCONTINUE
--- NOTE | 2019-11-14 17:18 | NUR ---
RESPIRATORY NOTES: Weaning stopped at 1718. Placed back onto previous ACVC settings.
--- NOTE | 2019-11-14 17:20 | Internal Med Progress Note ---
Subjective Date of Service: Nov 14, 2019 Physician Name KarolinaGallito Attending Physician Danny Stark MD Current Medications Medications (Trade) Dose Ordered Sig/Tasha Route PRN Reason Start Time Stop Time Status Last Admin Dose Admin Acetaminophen (Tylenol) 650 mg Q4H PRN ORAL fever 10/30/19 11:15 11/29/19 11:14 11/10/19 19:43 Albuterol/ Ipratropium (Albuterol/ Ipratropium) 3 ml Q4H PRN HHN sob 11/10/19 08:45 11/15/19 08:44 Amiodarone HCl (Cordarone) 100 mg DAILY PEG 11/04/19 09:00 01/29/20 08:59 11/14/19 09:16 Chlorhexidine Gluconate (Megan-Hex 2%) 1 applic DAILY@2000 TOPIC 11/01/19 20:00 01/30/20 19:59 11/13/19 20:59 Heparin Sodium (Porcine) (Heparin 5000 units/ml) 5,000 units EVERY 12 HOURS SUBQ 11/02/19 09:00 12/17/19 08:59 11/14/19 09:21 Levothyroxine Sodium (Synthroid) 50 mcg DAILY@0630 GT 10/31/19 06:30 11/30/19 06:29 11/14/19 06:13 Linezolid 300 ml @ 300 mls/hr Q12HR IVPB 11/02/19 13:30 11/15/19 23:59 11/14/19 09:16 Norepinephrine Bitartrate 4 mg/ Dextrose 254 ml @ 0 mls/hr Q24H IV 10/30/19 22:00 11/29/19 21:59 11/01/19 23:54 Ondansetron HCl (Zofran) 4 mg Q6H PRN IVP Nausea & Vomiting 10/30/19 11:15 11/29/19 11:14 11/12/19 23:52 Pantoprazole (Protonix) 40 mg DAILY IVP 10/31/19 09:00 11/30/19 08:59 11/14/19 09:16 Piperacillin Sod/ Tazobactam Sod 3.375 gm/Sodium Chloride 110 ml @ 27.5 mls/hr EVERY 8 HOURS IVPB 11/14/19 14:00 11/19/19 13:59 11/14/19 14:00 Polyethylene Glycol (Miralax) 17 gm DAILYPRN PRN ORAL Constipation 10/30/19 11:15 11/29/19 11:14 Quetiapine Fumarate (SEROqueL) 100 mg Q12HR GT 10/30/19 23:00 12/14/19 22:59 11/14/19 09:15 Sodium Phosphate 30 mm/Sodium Chloride 285 ml @ 47.5 mls/hr ONCE IV 11/14/19 13:00 11/14/19 19:00 11/14/19 13:59 Allergies: Coded Allergies: No Known Allergies (Unverified , 10/30/19) ROS Limited/Unobtainable: Yes Subjective 73 YO M with history of esophageal cancer admitted with respiratory failure. Cover for Int Med-Dr Stark. ICU. Intubted and sedated. Objective Last Vital Signs Date Time Temp Pulse Resp B/P (MAP) Pulse Ox O2 Delivery O2 Flow Rate FiO2 11/14/19 16:00 40 11/14/19 16:00 Mechanical Ventilator 11/14/19 16:00 72 11/14/19 13:21 25 11/14/19 12:00 125/60 (81) 100 11/14/19 08:00 98.2 Laboratory Tests Test 11/14/19 03:40 11/14/19 13:46 White Blood Count 7.0 K/UL (4.8-10.8) Red Blood Count 2.89 M/UL (4.70-6.10) L Hemoglobin 8.3 G/DL (14.2-18.0) L Hematocrit 24.6 % (42.0-52.0) L Mean Corpuscular Volume 85 FL (80-99) Mean Corpuscular Hemoglobin 28.6 PG (27.0-31.0) Mean Corpuscular Hemoglobin Concent 33.6 G/DL (32.0-36.0) Red Cell Distribution Width 16.3 % (11.6-14.8) H Platelet Count 223 K/UL (150-450) Mean Platelet Volume 4.8 FL (6.5-10.1) L Neutrophils (%) (Auto) 58.5 % (45.0-75.0) Lymphocytes (%) (Auto) 26.3 % (20.0-45.0) Monocytes (%) (Auto) 9.3 % (1.0-10.0) Eosinophils (%) (Auto) 4.1 % (0.0-3.0) H Basophils (%) (Auto) 1.7 % (0.0-2.0) Sodium Level 143 MMOL/L (136-145) Potassium Level 4.1 MMOL/L (3.5-5.1) Chloride Level 110 MMOL/L (98-107) H Carbon Dioxide Level 22 MMOL/L (21-32) Anion Gap 11 mmol/L (5-15) Blood Urea Nitrogen 14 mg/dL (7-18) Creatinine 0.8 MG/DL (0.55-1.30) Estimat Glomerular Filtration Rate > 60 mL/min (>60) Glucose Level 86 MG/DL (74-106) Calcium Level 7.8 MG/DL (8.5-10.1) L Phosphorus Level 2.2 MG/DL (2.5-4.9) L Magnesium Level 2.0 MG/DL (1.8-2.4) Arterial Blood pH 7.461 (7.350-7.450) Arterial Blood Partial Pressure CO2 30.6 mmHg (35.0-45.0) L Arterial Blood Partial Pressure O2 66.6 mmHg (75.0-100.0) L Arterial Blood HCO3 21.3 mmol/L (22.0-26.0) L Arterial Blood Oxygen Saturation 93.4 % (95-100) L Arterial Blood Base Excess -1.9 (-2-2) Ty Test Positive Intake and Output 11/13/19 11/14/19 19:00 07:00 Intake Total 540 ml 660 ml Output Total 760 ml 600 ml Balance -220 ml 60 ml IV Total 300 ml 300 ml Tube Feeding 240 ml 300 ml Other 60 ml Output Urine Total 360 ml 600 ml Stool Total 400 ml Objective PHYSICAL EXAMINATION: VITAL SIGNS: Temperature 98.1, respirations 25, pulse 92, blood pressure 95/59. GENERAL: The patient is well-developed, well-nourished male, who is intubated and sedated. HEENT: Eyes, pupils are equal and responsive to light and accommodation. Extraocular movements are intact. NECK: Supple without lymphadenopathy. CHEST: Mech vent; Coarse mechanical breath sounds bilaterally without wheezes or rales. CARDIOVASCULAR: Regular rhythm and rate. S1, S2 are normal without murmurs, rubs, or gallops. ABDOMEN: Soft, nontender, and nondistended. Positive bowel sounds. No evidence of hepatosplenomegaly. Currently, no rebound or guarding noted. EXTREMITIES: Negative for clubbing, cyanosis, or edema. RECTAL/GENITAL: Not performed. NEUROLOGICAL: Unable to assess. Assessment/Plan Assessment/Plan ASSESSMENT: This is a 73-year-old male. 1. Respiratory failure. 2. Pneumonia. 3. Esophageal cancer. 4. Diabetes type 2. 5. Hypertension. 6. Hypercholesterolemia. 7. Atrial fibrillation. 8. Hypothyroidism. 9. Dysphagia. 10. History of prostate cancer. 11. Sepsis=Enterococcus (VRE) TREATMENT: 1. Pneumonia/respiratory failure. A Pulmonary consultation has been obtained with Dr. Jackie Kaiser. An Infectious Disease consultation has been obtained with Dr. Sy. We will follow recommendations of Infectious Disease and Pulmonary. COVID 19=neg 2. Esophageal cancer. 3. Diabetes type 2. A NovoLog sliding scale has been instituted. 4. Hypertension. The patient is currently hypotensive and probable sepsis. 5. Hypercholesterolemia. Continue atorvastatin as above. 6. Atrial fibrillation. Continue amiodarone as above. 7. Hypothyroidism. Continue levothyroxine as above. 8. Dysphagia, status post PEG placement. 9. History of prostate cancer. 10. ABX = linezolid. Gallito Turcios MD Nov 14, 2019 17:20
--- NOTE | 2019-11-14 17:41 | Cardiology Progress Note ---
Assessment/Plan Assessment/Plan 1. Paroxysmal episodes of atrial fibrillation. 2. Respiratory failure. 3. Influenza A positive. covid negX1 4. Malignant neoplasm of the larynx. 5. History of hypertension. 6. History of hyperlipidemia. 7. History of hypothyroidism. 8. Respiratory failure on a mechanical ventilator. 9. Diabetes mellitus type 2. 10. Coagulopathy. 11. Abnormal liver function tests. 12. Hypotension likely from sepsis and shock 13. VRE bacteremia 14. Hypotension resolved influenza positive covid neg bp is fien no further drops after boluses yest off pressor anemic but stable wbc improving final echo noted tele reviewed sinus no afib documented wean when feasible afebril tele sinus persoanlly reviewed Subjective ROS Limited/Unobtainable: Yes Subjective on vent per rn mod secretion is awake no diarrhea no vomiting but hasa rectal tube sat are fien no further bp drips Objective Last 24 Hour Vital Signs Date Time Temp Pulse Resp B/P (MAP) Pulse Ox O2 Delivery O2 Flow Rate FiO2 11/14/19 17:18 74 25 40 40 11/14/19 16:00 40 11/14/19 16:00 Mechanical Ventilator 11/14/19 16:00 72 11/14/19 13:21 80 25 40 40 11/14/19 12:00 80 11/14/19 12:00 40 11/14/19 12:00 81 27 125/60 (81) 100 11/14/19 12:00 Mechanical Ventilator 11/14/19 11:00 85 18 123/68 (86) 98 11/14/19 10:13 80 19 92 Mechanical Ventilator 30 11/14/19 10:00 85 21 134/53 (80) 90 11/14/19 09:18 80 19 40 11/14/19 09:00 79 18 123/63 (83) 90 11/14/19 08:00 70 11/14/19 08:00 40 11/14/19 08:00 Mechanical Ventilator 11/14/19 08:00 98.2 67 14 105/69 (81) 98 11/14/19 07:19 66 16 40 11/14/19 07:00 68 16 117/62 (80) 96 11/14/19 06:30 68 20 11/14/19 06:00 73 16 109/58 (75) 94 11/14/19 05:14 64 18 40 11/14/19 05:00 66 16 112/54 (73) 100 11/14/19 04:00 Mechanical Ventilator 11/14/19 04:00 63 11/14/19 04:00 40 11/14/19 04:00 97.9 64 16 118/62 (80) 93 11/14/19 03:00 66 16 110/58 (75) 100 11/14/19 02:00 75 19 124/59 (80) 99 11/14/19 01:26 67 18 40 11/14/19 01:00 70 17 97/59 (72) 100 11/14/19 00:00 70 11/14/19 00:00 98.0 68 16 104/53 (70) 100 11/14/19 00:00 Mechanical Ventilator 11/14/19 00:00 40 11/13/19 23:30 67 16 90/52 (65) 100 11/13/19 23:00 71 16 86/52 (63) 100 11/13/19 22:59 69 17 40 11/13/19 22:00 78 15 112/62 (79) 99 11/13/19 21:15 67 16 40 11/13/19 21:02 125/80 11/13/19 21:00 69 15 135/59 (84) 100 11/13/19 20:00 40 11/13/19 20:00 97.9 72 17 105/61 (76) 100 11/13/19 20:00 68 11/13/19 20:00 Mechanical Ventilator 11/13/19 19:13 69 17 40 11/13/19 19:00 70 16 110/56 (74) 100 11/13/19 18:00 76 17 124/63 (83) 100 General Appearance: no apparent distress, alert, on vent, patient on isolation , isolation precautions Extremities: no swelling Intake and Output 11/13/19 11/14/19 19:00 07:00 Intake Total 540 ml 660 ml Output Total 760 ml 600 ml Balance -220 ml 60 ml IV Total 300 ml 300 ml Tube Feeding 240 ml 300 ml Other 60 ml Output Urine Total 360 ml 600 ml Stool Total 400 ml Laboratory Tests Test 11/14/19 03:40 11/14/19 13:46 White Blood Count 7.0 K/UL (4.8-10.8) Red Blood Count 2.89 M/UL (4.70-6.10) L Hemoglobin 8.3 G/DL (14.2-18.0) L Hematocrit 24.6 % (42.0-52.0) L Mean Corpuscular Volume 85 FL (80-99) Mean Corpuscular Hemoglobin 28.6 PG (27.0-31.0) Mean Corpuscular Hemoglobin Concent 33.6 G/DL (32.0-36.0) Red Cell Distribution Width 16.3 % (11.6-14.8) H Platelet Count 223 K/UL (150-450) Mean Platelet Volume 4.8 FL (6.5-10.1) L Neutrophils (%) (Auto) 58.5 % (45.0-75.0) Lymphocytes (%) (Auto) 26.3 % (20.0-45.0) Monocytes (%) (Auto) 9.3 % (1.0-10.0) Eosinophils (%) (Auto) 4.1 % (0.0-3.0) H Basophils (%) (Auto) 1.7 % (0.0-2.0) Sodium Level 143 MMOL/L (136-145) Potassium Level 4.1 MMOL/L (3.5-5.1) Chloride Level 110 MMOL/L (98-107) H Carbon Dioxide Level 22 MMOL/L (21-32) Anion Gap 11 mmol/L (5-15) Blood Urea Nitrogen 14 mg/dL (7-18) Creatinine 0.8 MG/DL (0.55-1.30) Estimat Glomerular Filtration Rate > 60 mL/min (>60) Glucose Level 86 MG/DL (74-106) Calcium Level 7.8 MG/DL (8.5-10.1) L Phosphorus Level 2.2 MG/DL (2.5-4.9) L Magnesium Level 2.0 MG/DL (1.8-2.4) Arterial Blood pH 7.461 (7.350-7.450) Arterial Blood Partial Pressure CO2 30.6 mmHg (35.0-45.0) L Arterial Blood Partial Pressure O2 66.6 mmHg (75.0-100.0) L Arterial Blood HCO3 21.3 mmol/L (22.0-26.0) L Arterial Blood Oxygen Saturation 93.4 % (95-100) L Arterial Blood Base Excess -1.9 (-2-2) Ty Test Positive Carlos Slade MD Nov 14, 2019 17:41
--- NOTE | 2019-11-14 17:56 | NUR ---
NURSE NOTES: Bed bath given.
--- NOTE | 2019-11-14 19:25 | NUR ---
HAND-OFF: Report given to VENKAT Silverman. Endorsed plan of care.
--- NOTE | 2019-11-14 19:30 | NUR ---
NURSE NOTES: Received report from VENKAT Downey. Patient awake and responsive to verbal, able to follow simple commands. watching TV. ETT 7.5/21cm at lip line with vent setting AC 16, VT 600 and FiO2 40%. G-tube intact infusing Glucerna 1.5 50ml/hr no residual. HOB elevated . Rectal tube intact and draining brown liquid color stool. Right femoral TLC intact and clean with TKO. Bilateral soft wrist restraints on. Both hands are warm to touch. Kept dry, clean, comfortable and HOB>30. contact isolation maintained and observed. Will continue plan of care.
[2019-11-14] MEDS: Dyna-Hex 2% Top Sol 2oz TOPIC SCH (20:59)
[2019-11-14] MEDS: LORazepam Inj 2mg/ml 1ml IV PRN (21:09)
--- NOTE | 2019-11-14 21:30 | NUR ---
NURSE NOTES: patient with episode of anxiety, agitation trying to get out from bed and pull out tubing reality orientation provided, encouraged patient to make needs known to staff, TV and repositioned patient not effective. Ativan given effective will continue to monitor patient.
[2019-11-15] VITALS (30 sets, daily range): BP systolic 84–129; BP diastolic 49–71
--- NOTE | 2019-11-15 | NUR ---
NURSE NOTES: Patient in bed sleeping comfortably.d/c bilateral non violent soft wrist restraint. patient no episode of pulling out tubing at this time. will continue to monitor patient.
--- NOTE | 2019-11-15 02:00 | NUR ---
NURSE NOTES: bed bath given. Patient with episode of restlessness, pulling out tubing redirected patient and talk therapy provided not effective. bilateral soft non-violent restraint ordered per MD. will continue plan of care.
--- NOTE | 2019-11-15 03:46 | NUR ---
NURSE NOTES: Bed bath given tolerated well.
[2019-11-15 04:51] LABS: BASOPHILS % (AUTO) 1.6 % (0.0-2.0); EOSINOPHILS % (AUTO) 4.9 % (0.0-3.0); HEMATOCRIT 25.9 % (42.0-52.0); HEMOGLOBIN 8.6 G/DL (14.2-18.0); MEAN CORPUSCULAR VOLUME 85 FL (80-99); MONOCYTES % (AUTO) 13.5 % (1.0-10.0); NEUTROPHILS % (AUTO) 56.1 % (45.0-75.0); PLATELET COUNT 225 K/UL (150-450); RED BLOOD COUNT 3.06 M/UL (4.70-6.10); RED CELL DISTRIBUTION WIDTH 16.3 % (11.6-14.8); WHITE BLOOD COUNT 7.2 K/UL (4.8-10.8)
--- NOTE | 2019-11-15 05:17 | NUR ---
NURSE NOTES: patient in bed no s/s of acute distress noted. no fever. no n/v. rectal tube intact. Patel draining. frequent visual checks continued. contact isolation maintained and observed. will continue plan of care.
[2019-11-15 05:24] LABS: ALANINE AMINOTRANSFERASE 67 U/L (12-78); ALBUMIN 1.9 G/DL (3.4-5.0); ALBUMIN/GLOBULIN RATIO 0.5 (1.0-2.7); ALKALINE PHOSPHATASE 155 U/L (46-116); ANION GAP 8 mmol/L (5-15); ASPARTATE AMINO TRANSFERASE 51 U/L (15-37); BILIRUBIN,TOTAL 0.2 MG/DL (0.2-1.0); BLOOD UREA NITROGEN 15 mg/dL (7-18); CALCIUM 8.2 MG/DL (8.5-10.1); CARBON DIOXIDE 24 MMOL/L (21-32); CHLORIDE 108 MMOL/L (98-107); CREATININE 0.8 MG/DL (0.55-1.30); PHOSPHORUS 3.4 MG/DL (2.5-4.9); SODIUM 140 MMOL/L (136-145)
[2019-11-15] MEDS: Piperacillin/Tazobactam 3.375 GM in NS 110 ML IVPB SCH (05:49)
--- NOTE | 2019-11-15 07:10 | NUR ---
RESPIRATORY NOTE: Received pt on ETT 7.5@21cm lip line, secured by anchor fast and on AC 16-600ml-40%FiO2-no peep. Pt is awake, alert, able to follow commands. Placed pt on CPAP PS 8- 40%- no peep. Pt is tolerating well. No SOB or resp distress noted. RN Saji aware. Alarms are set and audible, vent is plugged into the red outlet, ambu bag is at bedside. Will continue to monitor.
--- NOTE | 2019-11-15 07:10 | NUR ---
NURSE NOTES: Received report from VENKAT Silverman. Patient awake and responsive to verbal. ETT 7.5/21cm at lip line with vent setting AC 16, Vt 600 and FiO2 40%. Gtube intact and running with Glucerna 1.5 @ 150ml/hr. Rectal tube intact and draining brown color liqud stool. Right femoral TLC intact and clean with TKO. Bilateral soft wrist bands restraints on. Both hands are warm to touch. Kept dry, clean, comfortable and HOB>30. Will continue plan of care.
--- NOTE | 2019-11-15 07:10 | NUR ---
HAND-OFF: Report given to Shayan ROBLEDO.
[2019-11-15] MEDS: Pantoprazole Inj IVP SCH (08:58)
[2019-11-15] MEDS: Amiodarone 200mg tab PEG SCH (08:58)
[2019-11-15] MEDS: Heparin 5000 units/ml inj SUBQ SCH ×2 (09:00→20:39)
--- NOTE | 2019-11-15 09:00 | NUR ---
NURSE NOTES: All due meds given ordered. Repositioned patient. Oral and ETT suction given.
--- NOTE | 2019-11-15 10:25 | Diagnostic Imaging Report ---
Indication: Dyspnea Technique: One view of the chest Comparison: 11/13/2019 Findings: Allowing for technical differences, probably unchanged bilateral interstitial and airspace disease. Right chest port catheter remains Impression: Unchanged, over 2 days, findings as above.
--- NOTE | 2019-11-15 10:27 | NUR ---
RD ASSESSMENT & RECOMMENDATIONS SEE CARE ACTIVITY FOR COMPLETE ASSESSMENT DAILY ESTIMATED NEEDS: Needs based on CRITICAL CARE/ 66kg 22-28 kcals/kg 5644-9040 total kcals 1.2-2 g protein/kg 79-132 g total protein 25-30 mL/kg 1679-7301 total fluid mLs NUTRITION DIAGNOSIS: Swallowing difficulty R/T dysphagia as evidenced by PEG dep, s/p oral intubation, pressor support now held. CURRENT TF: Glucerna 1.5 @ 50 ml/hr x 22 hrs ( on Synthroid QD) ENTERAL NUTRITION RECOMMENDATIONS: Glucerna 1.5 @ 50ml/hr x 22 hrs (hold 1 hr before and after Synthroid) to provide 1100ml, 1650kcal, 91g prot, 835ml free water * Maintain current TF as tolerated to meet 100% est kcal and pro needs. * HOB over 30 degrees/ water flush per MD * Hold 1 hr before and after Synthroid med. ADDITIONAL RECOMMENDATIONS: * Per SN[facility]: HT=66" HC=135# (as of 10/18) -> rec calibrated bedscale wt * Consider bedside BG testing: h/o DM -> Monitor need for NISS- good BG control at this time * Check lytes daily, replete as needed .
--- NOTE | 2019-11-15 11:00 | NUR ---
NURSE NOTES: Inserted IV 20G on left wrist and right hand 20G. Patent with good blood return. No swelling. Will follow up with DC PICC.
--- NOTE | 2019-11-15 12:22 | NUR ---
NURSE NOTES: Seen by Dr. Kaiser and assessed patient.
--- NOTE | 2019-11-15 12:32 | Infectious Diseases Prog Note ---
Assessment/Plan Assessment/Plan A: Low grade fever x1, SP Leukocytosis, neutrophil predominant, recurrent; improving -11/10 u/a neg; ucx NTD -11/08 Cdiff neg Septic shock, sp off of pressors PNA- persistent infiltrates, hypoxia- COVID19 neg x2 Influenza A, sp rx SARS CoV PCR negative x2 (10/29, 11/10) 11/11 CXR: Bilateral diffuse interstitial and airspace infiltrates are unchanged.Stable satisfactory position of endotracheal tube and right jugular port catheter.The heart size is normal. 11/10 sp cx C. tropicalis, ESBL E.coli (S Zosyn, Ertapenem) 11/09 CXR: Persistent basilar predominant interstitial and airspace infiltrates. Edema and infection are again both possibilities. Also consider superimposed malignancy, particularly given infusion ports. CXR: Bilateral mostly nodular mostly interstitial disease, as described. This could represent interstitial pneumonia or edema, among many other possibilities. However, given the nodular appearance and the presence of an infusion catheter the possibility of nodular metastatic disease should also be considered. Unlikely UTI UA 10-15 WBC UCx: NG VRE bacteremia 10/29 BCx: VRE; 10/31 Bcx neg 10/29 TTE: focal AV sclerosis with adequate cusp excursion. thickened MV leaflets with normal excursion. mild mitral annulus and aortic root calcification. normal TV. no MR. mild TR. PV not visualized. QTc 552 Afib COPD Hypothyroid Dyslipidemia HTN DM Anemia CVA G tube, h/o abscess complication head and neck cancer Plan: Linezolid #14/ for VRE bacteremia -Switch Zosyn #2 to Ertapenem for ESBL PNA 11/03 Tamiflu #5 11/03 DC amikacin and ertapenem #4 11/01 SP Vanc #3 monitor temp and CBC monitor resp status COVID19 neg x2, Influenza A upon admission- repeat influenza swab to determine isolation status f/u bcx TTE without severe valve insufficiency and bacteremia low grade. recommend repeating bcx at end of therapy to ensure resolution of bacteremia. If has recurrent fevers, will recommend ILENE. WENDI RN Thank you for this consult. [facility] Will continue to follow the patient with you. Subjective Allergies: Coded Allergies: No Known Allergies (Unverified , 10/30/19) Subjective afebrile no resolved remains intubated; on 40% Fio2, no PEEP Objective Vital Signs Last 24 Hour Vital Signs Date Time Temp Pulse Resp B/P (MAP) Pulse Ox O2 Delivery O2 Flow Rate FiO2 11/15/19 11:00 68 27 103/54 (70) 99 11/15/19 10:51 65 27 40 11/15/19 10:00 71 24 101/55 (70) 99 11/15/19 09:00 71 28 126/62 (83) 100 11/15/19 08:50 74 27 40 11/15/19 08:00 Mechanical Ventilator 11/15/19 08:00 97.8 62 21 97/52 (67) 98 11/15/19 08:00 40 11/15/19 07:10 66 22 40 11/15/19 07:00 62 16 93/49 (64) 96 11/15/19 06:30 64 20 11/15/19 06:00 61 16 109/49 (69) 98 11/15/19 05:00 67 16 97/58 (71) 95 11/15/19 04:30 63 16 94/57 (69) 97 11/15/19 04:00 98.0 59 16 126/57 (80) 99 11/15/19 04:00 40 11/15/19 04:00 Mechanical Ventilator 11/15/19 04:00 59 11/15/19 03:30 63 16 93/50 (64) 98 11/15/19 03:09 66 16 40 11/15/19 03:00 62 16 91/57 (68) 98 11/15/19 02:30 62 15 113/55 (74) 100 11/15/19 02:00 58 16 101/51 (68) 100 11/15/19 01:00 58 16 107/53 (71) 100 11/15/19 00:30 56 16 128/59 (82) 99 11/15/19 00:00 40 11/15/19 00:00 Mechanical Ventilator 11/15/19 00:00 98.0 59 16 93/51 (65) 98 11/15/19 00:00 84 11/14/19 23:30 63 16 128/68 (88) 100 11/14/19 23:22 58 16 40 11/14/19 23:00 57 16 100/53 (69) 100 11/14/19 22:30 59 16 92/49 (63) 100 11/14/19 22:00 64 16 86/49 (61) 96 11/14/19 21:00 81 19 125/76 (92) 100 11/14/19 20:30 81 20 132/67 (88) 100 11/14/19 20:00 84 11/14/19 20:00 Mechanical Ventilator 11/14/19 20:00 40 11/14/19 20:00 78 16 134/67 (89) 91 11/14/19 19:46 75 16 40 11/14/19 19:30 73 16 106/74 (85) 86 11/14/19 19:00 73 18 88/72 (77) 89 11/14/19 18:00 81 16 119/59 (79) 99 11/14/19 17:18 74 25 40 40 11/14/19 17:00 73 26 114/56 (75) 100 11/14/19 16:00 40 11/14/19 16:00 Mechanical Ventilator 11/14/19 16:00 72 11/14/19 16:00 97.8 70 24 108/53 (71) 100 11/14/19 15:00 76 24 100/53 (69) 100 11/14/19 14:00 76 27 106/59 (75) 100 11/14/19 13:21 80 25 40 40 11/14/19 13:00 84 23 110/61 (77) 100 Height (Feet): 6 Height (Inches): 1.00 Weight (Pounds): 150 Objective Gen: NAD. intubated. HEENT: ETT. CV: S1+S2. no rubs or gallop Resp: coarse. regular. equal chest rise. no wheezes Abd: soft. G tube. nondistended. Skin: warm. dry. Neuro: awake. follows simple commands. calm Laboratory Tests Test 11/14/19 13:46 11/15/19 03:20 11/15/19 08:52 Arterial Blood pH 7.461 (7.350-7.450) 7.391 (7.350-7.450) Arterial Blood Partial Pressure CO2 30.6 mmHg (35.0-45.0) L 39.7 mmHg (35.0-45.0) Arterial Blood Partial Pressure O2 66.6 mmHg (75.0-100.0) L 132.5 mmHg (75.0-100.0) H Arterial Blood HCO3 21.3 mmol/L (22.0-26.0) L 23.5 mmol/L (22.0-26.0) Arterial Blood Oxygen Saturation 93.4 % (95-100) L 98.0 % (95-100) Arterial Blood Base Excess -1.9 (-2-2) -1.3 (-2-2) Ty Test Positive Positive White Blood Count 7.2 K/UL (4.8-10.8) Red Blood Count 3.06 M/UL (4.70-6.10) L Hemoglobin 8.6 G/DL (14.2-18.0) L Hematocrit 25.9 % (42.0-52.0) L Mean Corpuscular Volume 85 FL (80-99) Mean Corpuscular Hemoglobin 28.2 PG (27.0-31.0) Mean Corpuscular Hemoglobin Concent 33.4 G/DL (32.0-36.0) Red Cell Distribution Width 16.3 % (11.6-14.8) H Platelet Count 225 K/UL (150-450) Mean Platelet Volume 5.0 FL (6.5-10.1) L Neutrophils (%) (Auto) 56.1 % (45.0-75.0) Lymphocytes (%) (Auto) 24.0 % (20.0-45.0) Monocytes (%) (Auto) 13.5 % (1.0-10.0) H Eosinophils (%) (Auto) 4.9 % (0.0-3.0) H Basophils (%) (Auto) 1.6 % (0.0-2.0) Sodium Level 140 MMOL/L (136-145) Potassium Level 4.0 MMOL/L (3.5-5.1) Chloride Level 108 MMOL/L (98-107) H Carbon Dioxide Level 24 MMOL/L (21-32) Anion Gap 8 mmol/L (5-15) Blood Urea Nitrogen 15 mg/dL (7-18) Creatinine 0.8 MG/DL (0.55-1.30) Estimat Glomerular Filtration Rate > 60 mL/min (>60) Glucose Level 80 MG/DL (74-106) Calcium Level 8.2 MG/DL (8.5-10.1) L Phosphorus Level 3.4 MG/DL (2.5-4.9) Magnesium Level 2.1 MG/DL (1.8-2.4) Total Bilirubin 0.2 MG/DL (0.2-1.0) Aspartate Amino Transf (AST/SGOT) 51 U/L (15-37) H Alanine Aminotransferase (ALT/SGPT) 67 U/L (12-78) Alkaline Phosphatase 155 U/L (46-116) H Total Protein 5.9 G/DL (6.4-8.2) L Albumin 1.9 G/DL (3.4-5.0) L Globulin 4.0 g/dL Albumin/Globulin Ratio 0.5 (1.0-2.7) L Current Medications Medications (Trade) Dose Ordered Sig/Tasha Route PRN Reason Start Time Stop Time Status Last Admin Dose Admin Acetaminophen (Tylenol) 650 mg Q4H PRN ORAL fever 10/30/19 11:15 11/29/19 11:14 11/10/19 19:43 Amiodarone HCl (Cordarone) 100 mg DAILY PEG 11/04/19 09:00 01/29/20 08:59 11/15/19 08:58 Chlorhexidine Gluconate (Megan-Hex 2%) 1 applic DAILY@1999 TOPIC 11/01/19 20:00 01/30/20 19:59 11/14/19 20:59 Heparin Sodium (Porcine) (Heparin 5000 units/ml) 5,000 units EVERY 12 HOURS SUBQ 11/02/19 09:00 12/17/19 08:59 11/15/19 09:00 Levothyroxine Sodium (Synthroid) 50 mcg DAILY@0630 GT 10/31/19 06:30 11/30/19 06:29 11/15/19 05:49 Linezolid 300 ml @ 300 mls/hr Q12HR IVPB 11/02/19 13:30 11/15/19 23:59 11/15/19 08:59 Lorazepam (Ativan 2mg/ml 1ml) 2 mg Q4H PRN IV For Anxiety 11/14/19 21:15 11/21/19 21:14 11/14/19 21:09 Norepinephrine Bitartrate 4 mg/ Dextrose 254 ml @ 0 mls/hr Q24H IV 10/30/19 22:00 11/29/19 21:59 4/3/20 23:54 Ondansetron HCl (Zofran) 4 mg Q6H PRN IVP Nausea & Vomiting 10/30/19 11:15 11/29/19 11:14 11/12/19 23:52 Pantoprazole (Protonix) 40 mg DAILY IVP 10/31/19 09:00 11/30/19 08:59 11/15/19 08:58 Piperacillin Sod/ Tazobactam Sod 3.375 gm/Sodium Chloride 110 ml @ 27.5 mls/hr EVERY 8 HOURS IVPB 11/14/19 14:00 11/19/19 13:59 11/15/19 05:49 Polyethylene Glycol (Miralax) 17 gm DAILYPRN PRN ORAL Constipation 10/30/19 11:15 11/29/19 11:14 Quetiapine Fumarate (SEROqueL) 100 mg Q12HR GT 10/30/19 23:00 12/14/19 22:59 11/15/19 08:58 Daphne Sy M.D. Nov 15, 2019 12:32
[2019-11-15] MEDS ORDERED: Omnipaque-300 100ml vial INJ ONE (12:45)
--- NOTE | 2019-11-15 12:49 | Pulmonolgy Critical Care Note ---
Critical Care - Asmt/Plan Problems: (1) Acute respiratory failure (2) Influenza A (3) Enterococcal bacteremia (4) Nosocomial pneumonia (5) COPD (chronic obstructive pulmonary disease) (6) Atrial fibrillation (7) Severe anemia (8) Hypothyroidism (9) Psychosis Respiratory: monitor respiratory rate, adjust FIO2, CXR, other - CT of chest to look at lung and esophagus to rule out mass Cardiac: continue to monitor HR/BP Renal: F/U I&O Infectious Disease: check cultures Gastrointestinal: continue feedings/current rate Endocrine: monitor blood sugar, check HgA1C Hematologic: monitor H/H Neurologic: PRN Ativan, PRN Morphine Notes 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 with: nurses, consultants, 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 - Objective Last 24 Hour Vital Signs Date Time Temp Pulse Resp B/P (MAP) Pulse Ox O2 Delivery O2 Flow Rate FiO2 11/15/19 11:00 68 27 103/54 (70) 99 11/15/19 10:51 65 27 40 11/15/19 10:00 71 24 101/55 (70) 99 11/15/19 09:00 71 28 126/62 (83) 100 11/15/19 08:50 74 27 40 11/15/19 08:00 Mechanical Ventilator 11/15/19 08:00 97.8 62 21 97/52 (67) 98 11/15/19 08:00 40 11/15/19 07:10 66 22 40 11/15/19 07:00 62 16 93/49 (64) 96 11/15/19 06:30 64 20 11/15/19 06:00 61 16 109/49 (69) 98 11/15/19 05:00 67 16 97/58 (71) 95 11/15/19 04:30 63 16 94/57 (69) 97 11/15/19 04:00 98.0 59 16 126/57 (80) 99 11/15/19 04:00 40 11/15/19 04:00 Mechanical Ventilator 11/15/19 04:00 59 11/15/19 03:30 63 16 93/50 (64) 98 11/15/19 03:09 66 16 40 11/15/19 03:00 62 16 91/57 (68) 98 11/15/19 02:30 62 15 113/55 (74) 100 11/15/19 02:00 58 16 101/51 (68) 100 11/15/19 01:00 58 16 107/53 (71) 100 11/15/19 00:30 56 16 128/59 (82) 99 11/15/19 00:00 40 11/15/19 00:00 Mechanical Ventilator 11/15/19 00:00 98.0 59 16 93/51 (65) 98 11/15/19 00:00 84 11/14/19 23:30 63 16 128/68 (88) 100 11/14/19 23:22 58 16 40 11/14/19 23:00 57 16 100/53 (69) 100 11/14/19 22:30 59 16 92/49 (63) 100 11/14/19 22:00 64 16 86/49 (61) 96 11/14/19 21:00 81 19 125/76 (92) 100 11/14/19 20:30 81 20 132/67 (88) 100 11/14/19 20:00 84 11/14/19 20:00 Mechanical Ventilator 11/14/19 20:00 40 11/14/19 20:00 78 16 134/67 (89) 91 11/14/19 19:46 75 16 40 11/14/19 19:30 73 16 106/74 (85) 86 11/14/19 19:00 73 18 88/72 (77) 89 11/14/19 18:00 81 16 119/59 (79) 99 11/14/19 17:18 74 25 40 40 11/14/19 17:00 73 26 114/56 (75) 100 11/14/19 16:00 40 11/14/19 16:00 Mechanical Ventilator 11/14/19 16:00 72 11/14/19 16:00 97.8 70 24 108/53 (71) 100 11/14/19 15:00 76 24 100/53 (69) 100 11/14/19 14:00 76 27 106/59 (75) 100 11/14/19 13:21 80 25 40 40 11/14/19 13:00 84 23 110/61 (77) 100 Status: sedated Condition: critical HEENT: atraumatic Neck: full ROM Heart: HR/BP stable Abdomen: soft, non-tender Extremities: no C/C/E Decubiti: location Critical Care - Subjective ROS Limited/Unobtainable: Yes Condition: critical FI02: 40 Vent Support Breath Rate: 16 Vent Support Mode: CPAP Vent Tidal Volume: 600 Sputum Amount: Moderate PEEP: 0.0 PIP: 9 Tube Feeding Amount: 50 I&O: Intake and Output 11/14/19 11/15/19 19:00 07:00 Intake Total 1230.0 ml 1170.0 ml Output Total 1310 ml 795 ml Balance -80.0 ml 375.0 ml Intake Free Water 150 ml 100 ml IV Total 505.0 ml 410.0 ml Tube Feeding 575 ml 600 ml Other 60 ml Output Urine Total 1210 ml 745 ml Stool Total 100 ml 50 ml CXR: no change ET-Tube: 7.5 ET Position: 21 Labs: Laboratory Tests Test 11/14/19 13:46 11/15/19 03:20 11/15/19 08:52 Arterial Blood pH 7.461 (7.350-7.450) 7.391 (7.350-7.450) Arterial Blood Partial Pressure CO2 30.6 mmHg (35.0-45.0) L 39.7 mmHg (35.0-45.0) Arterial Blood Partial Pressure O2 66.6 mmHg (75.0-100.0) L 132.5 mmHg (75.0-100.0) H Arterial Blood HCO3 21.3 mmol/L (22.0-26.0) L 23.5 mmol/L (22.0-26.0) Arterial Blood Oxygen Saturation 93.4 % (95-100) L 98.0 % (95-100) Arterial Blood Base Excess -1.9 (-2-2) -1.3 (-2-2) Ty Test Positive Positive White Blood Count 7.2 K/UL (4.8-10.8) Red Blood Count 3.06 M/UL (4.70-6.10) L Hemoglobin 8.6 G/DL (14.2-18.0) L Hematocrit 25.9 % (42.0-52.0) L Mean Corpuscular Volume 85 FL (80-99) Mean Corpuscular Hemoglobin 28.2 PG (27.0-31.0) Mean Corpuscular Hemoglobin Concent 33.4 G/DL (32.0-36.0) Red Cell Distribution Width 16.3 % (11.6-14.8) H Platelet Count 225 K/UL (150-450) Mean Platelet Volume 5.0 FL (6.5-10.1) L Neutrophils (%) (Auto) 56.1 % (45.0-75.0) Lymphocytes (%) (Auto) 24.0 % (20.0-45.0) Monocytes (%) (Auto) 13.5 % (1.0-10.0) H Eosinophils (%) (Auto) 4.9 % (0.0-3.0) H Basophils (%) (Auto) 1.6 % (0.0-2.0) Sodium Level 140 MMOL/L (136-145) Potassium Level 4.0 MMOL/L (3.5-5.1) Chloride Level 108 MMOL/L (98-107) H Carbon Dioxide Level 24 MMOL/L (21-32) Anion Gap 8 mmol/L (5-15) Blood Urea Nitrogen 15 mg/dL (7-18) Creatinine 0.8 MG/DL (0.55-1.30) Estimat Glomerular Filtration Rate > 60 mL/min (>60) Glucose Level 80 MG/DL (74-106) Calcium Level 8.2 MG/DL (8.5-10.1) L Phosphorus Level 3.4 MG/DL (2.5-4.9) Magnesium Level 2.1 MG/DL (1.8-2.4) Total Bilirubin 0.2 MG/DL (0.2-1.0) Aspartate Amino Transf (AST/SGOT) 51 U/L (15-37) H Alanine Aminotransferase (ALT/SGPT) 67 U/L (12-78) Alkaline Phosphatase 155 U/L (46-116) H Total Protein 5.9 G/DL (6.4-8.2) L Albumin 1.9 G/DL (3.4-5.0) L Globulin 4.0 g/dL Albumin/Globulin Ratio 0.5 (1.0-2.7) L Jackie Kaiser MD Nov 15, 2019 12:49
--- NOTE | 2019-11-15 12:50 | NUR ---
RESPIRATORY NOTE: Placed pt back on AC mode due to pt's tiredness. No extubation per Dr. Kaiser. No SOB or resp distress noted. Titrated FiO2 down to 30%. RN Saji aware. Will continue to monitor.
[2019-11-15] MEDS: Ertapenem 1 GM in NS 55 ML IVPB SCH (13:40)
--- NOTE | 2019-11-15 14:24 | NUR ---
CASE MANAGEMENT: REVIEW 11/13/19 SI: RESP FAILURE . PNA . INFLUENZA . VRE (+) BACTEREMIA 97.8 62 71 97/52 98% MECH VENT FIO2 40 H/H 8.6/25.9 CL- 108 CA+ 8.2 AST 51 ALKP 155 ALBUMIN 1.9 ABG: pO2 132.5 IS:IV LEVOPHED [id number] AMIODARONE GT QD IV ZYVOX BID IV ERTAPENEM Q24HR IV PROTONIX QD SEROQUEL GT BID HEPARIN SQ BID SYNTHROID GT QAM AYANA-HEX 2% TP QD GTUBE FEEDING CHEST X-RAY- unchanged bilateral interstitial and airspace disease \: ICU STATUS [facility]: [facility]: COVID-19- NEGATIVE x2 CT CHEST WITH CONTRAST-EXAM LUNG AND ESOPHAGUS TO R/O MASS CONTINUE NON-VIOLENT RESTRAINTS (MONITOR Q2HR) Addendum: 11/15/19 at 1446 by DIONNE ARROYO LVN DATE: 11/15/19
--- NOTE | 2019-11-15 14:44 | NUR ---
NURSE NOTES: Repositioned patient. Oral and ETT suction given.
--- NOTE | 2019-11-15 15:09 | NUR ---
RADIOLOGY DEPT., CHEST X-RAY DONE.-P.DYE
--- NOTE | 2019-11-15 16:22 | NUR ---
NURSE NOTES: Bed bath given. kept comfortable and HOB>30.
--- NOTE | 2019-11-15 16:29 | Cardiology Progress Note ---
Assessment/Plan Assessment/Plan 1. Paroxysmal episodes of atrial fibrillation. 2. Respiratory failure. 3. Influenza A positive. covid negX1 4. Malignant neoplasm of the larynx. 5. History of hypertension. 6. History of hyperlipidemia. 7. History of hypothyroidism. 8. Respiratory failure on a mechanical ventilator. 9. Diabetes mellitus type 2. 10. Coagulopathy. 11. Abnormal liver function tests. 12. Hypotension likely from sepsis and shock 13. VRE bacteremia 14. Hypotension resolved influenza positive covid neg bp is fien no further drops after boluses yest off pressor anemic but stable wbc improving final echo noted tele reviewed sinus no afib documented wean when feasible afebril tele sinus persoanlly reviewed Subjective ROS Limited/Unobtainable: Yes Subjective on vent per rn mod secretion is awake no diarrhea no vomiting but hasa rectal tube sat are fien no further bp drips Objective Last 24 Hour Vital Signs Date Time Temp Pulse Resp B/P (MAP) Pulse Ox O2 Delivery O2 Flow Rate FiO2 11/15/19 16:00 Mechanical Ventilator 11/15/19 16:00 30 11/15/19 15:15 72 16 30 11/15/19 13:00 30 11/15/19 12:50 70 19 30 11/15/19 12:00 Mechanical Ventilator 11/15/19 12:00 40 11/15/19 12:00 68 11/15/19 11:00 68 27 103/54 (70) 99 11/15/19 10:51 65 27 40 11/15/19 10:00 71 24 101/55 (70) 99 11/15/19 09:00 71 28 126/62 (83) 100 11/15/19 08:50 74 27 40 11/15/19 08:00 Mechanical Ventilator 11/15/19 08:00 71 11/15/19 08:00 97.8 62 21 97/52 (67) 98 11/15/19 08:00 40 11/15/19 07:10 66 22 40 11/15/19 07:00 62 16 93/49 (64) 96 11/15/19 06:30 64 20 11/15/19 06:00 61 16 109/49 (69) 98 11/15/19 05:00 67 16 97/58 (71) 95 11/15/19 04:30 63 16 94/57 (69) 97 11/15/19 04:00 98.0 59 16 126/57 (80) 99 11/15/19 04:00 40 11/15/19 04:00 Mechanical Ventilator 11/15/19 04:00 59 11/15/19 03:30 63 16 93/50 (64) 98 11/15/19 03:09 66 16 40 11/15/19 03:00 62 16 91/57 (68) 98 11/15/19 02:30 62 15 113/55 (74) 100 11/15/19 02:00 58 16 101/51 (68) 100 11/15/19 01:00 58 16 107/53 (71) 100 11/15/19 00:30 56 16 128/59 (82) 99 11/15/19 00:00 40 11/15/19 00:00 Mechanical Ventilator 11/15/19 00:00 98.0 59 16 93/51 (65) 98 11/15/19 00:00 84 11/14/19 23:30 63 16 128/68 (88) 100 11/14/19 23:22 58 16 40 11/14/19 23:00 57 16 100/53 (69) 100 11/14/19 22:30 59 16 92/49 (63) 100 11/14/19 22:00 64 16 86/49 (61) 96 11/14/19 21:00 81 19 125/76 (92) 100 11/14/19 20:30 81 20 132/67 (88) 100 11/14/19 20:00 84 11/14/19 20:00 Mechanical Ventilator 11/14/19 20:00 40 11/14/19 20:00 78 16 134/67 (89) 91 11/14/19 19:46 75 16 40 11/14/19 19:30 73 16 106/74 (85) 86 11/14/19 19:00 73 18 88/72 (77) 89 11/14/19 18:00 81 16 119/59 (79) 99 11/14/19 17:18 74 25 40 40 11/14/19 17:00 73 26 114/56 (75) 100 General Appearance: no apparent distress, on vent, patient on isolation, isolation precautions Intake and Output 11/14/19 11/15/19 19:00 07:00 Intake Total 1230.0 ml 1170.0 ml Output Total 1310 ml 795 ml Balance -80.0 ml 375.0 ml Intake Free Water 150 ml 100 ml IV Total 505.0 ml 410.0 ml Tube Feeding 575 ml 600 ml Other 60 ml Output Urine Total 1210 ml 745 ml Stool Total 100 ml 50 ml Laboratory Tests Test 11/15/19 03:20 11/15/19 08:52 White Blood Count 7.2 K/UL (4.8-10.8) Red Blood Count 3.06 M/UL (4.70-6.10) L Hemoglobin 8.6 G/DL (14.2-18.0) L Hematocrit 25.9 % (42.0-52.0) L Mean Corpuscular Volume 85 FL (80-99) Mean Corpuscular Hemoglobin 28.2 PG (27.0-31.0) Mean Corpuscular Hemoglobin Concent 33.4 G/DL (32.0-36.0) Red Cell Distribution Width 16.3 % (11.6-14.8) H Platelet Count 225 K/UL (150-450) Mean Platelet Volume 5.0 FL (6.5-10.1) L Neutrophils (%) (Auto) 56.1 % (45.0-75.0) Lymphocytes (%) (Auto) 24.0 % (20.0-45.0) Monocytes (%) (Auto) 13.5 % (1.0-10.0) H Eosinophils (%) (Auto) 4.9 % (0.0-3.0) H Basophils (%) (Auto) 1.6 % (0.0-2.0) Sodium Level 140 MMOL/L (136-145) Potassium Level 4.0 MMOL/L (3.5-5.1) Chloride Level 108 MMOL/L (98-107) H Carbon Dioxide Level 24 MMOL/L (21-32) Anion Gap 8 mmol/L (5-15) Blood Urea Nitrogen 15 mg/dL (7-18) Creatinine 0.8 MG/DL (0.55-1.30) Estimat Glomerular Filtration Rate > 60 mL/min (>60) Glucose Level 80 MG/DL (74-106) Calcium Level 8.2 MG/DL (8.5-10.1) L Phosphorus Level 3.4 MG/DL (2.5-4.9) Magnesium Level 2.1 MG/DL (1.8-2.4) Total Bilirubin 0.2 MG/DL (0.2-1.0) Aspartate Amino Transf (AST/SGOT) 51 U/L (15-37) H Alanine Aminotransferase (ALT/SGPT) 67 U/L (12-78) Alkaline Phosphatase 155 U/L (46-116) H Total Protein 5.9 G/DL (6.4-8.2) L Albumin 1.9 G/DL (3.4-5.0) L Globulin 4.0 g/dL Albumin/Globulin Ratio 0.5 (1.0-2.7) L Arterial Blood pH 7.391 (7.350-7.450) Arterial Blood Partial Pressure CO2 39.7 mmHg (35.0-45.0) Arterial Blood Partial Pressure O2 132.5 mmHg (75.0-100.0) H Arterial Blood HCO3 23.5 mmol/L (22.0-26.0) Arterial Blood Oxygen Saturation 98.0 % (95-100) Arterial Blood Base Excess -1.3 (-2-2) Ty Test Positive Carlos Slade MD Nov 15, 2019 16:29
--- NOTE | 2019-11-15 18:14 | NUR ---
NURSE NOTES: Repositioned patient. Kept dry, clean and comfortable.
--- NOTE | 2019-11-15 19:30 | NUR ---
HAND-OFF: Report given to VENKAT Silverman. Endorsed plan of care.
--- NOTE | 2019-11-15 19:35 | NUR ---
NURSE NOTES: Received report from VENKAT Downey. Patient awake and responsive to verbal, able to follow simple commands. watching TV. ETT 7.5/21cm at lip line with vent setting AC 16, VT 600 and FiO2 40%. G-tube intact infusing Glucerna 1.5 50ml/hr no residual. HOB elevated . Rectal tube intact and draining brown liquid color stool. IV line intact no s/s of infiltration. Bilateral soft wrist non violent restraints on. Both hands are warm to touch. Kept dry, clean, comfortable and HOB>30. contact isolation maintained and observed. Will continue plan of care.
--- NOTE | 2019-11-15 20:15 | NUR ---
RESPIRATORY NOTES: PT VENT MALFUNCTIONING. VENT CHANGED. PT IS ON ac vc 16/ 600/ 40%/ +0. ETT IS 7.5 AND 21 AT THE LIP, SECURED BY ANCHOR FAST. PT IS AWAKE AND ALERT. PT SX SMALL AMOUNT OF WHITE SPUTUM VIA ENDOTRACHEAL SX. ALARMS ARE ON AND AUDIBLE. VENT PLUGGED IN RED OUTLET.BMV AT BEDSIDE. WILL CONTINUE TO MONITOR PT THROUGHOUT THE NIGHT.
[2019-11-15] MEDS: Dyna-Hex 2% Top Sol 2oz TOPIC SCH (20:38)
[2019-11-15] MEDS: LORazepam Inj 2mg/ml 1ml IV PRN (20:39)
--- NOTE | 2019-11-15 21:30 | NUR ---
NURSE NOTES: Turned and repositioned patient. comfort measure provided. will continue plan of care.
--- NOTE | 2019-11-15 23:30 | NUR ---
NURSE NOTES: bed bath given tolerated well.
--- NOTE | 2019-11-15 23:31 | Internal Med Progress Note ---
Subjective Physician Name Danny Stark Attending Physician Danny Stark MD Current Medications Medications (Trade) Dose Ordered Sig/Tasha Route PRN Reason Start Time Stop Time Status Last Admin Dose Admin Acetaminophen (Tylenol) 650 mg Q4H PRN ORAL fever 10/30/19 11:15 11/29/19 11:14 11/10/19 19:43 Amiodarone HCl (Cordarone) 100 mg DAILY PEG 11/04/19 09:00 01/29/20 08:59 11/15/19 08:58 Ertapenem 1 gm/ Sodium Chloride 55 ml @ 110 mls/hr Q24H IVPB 11/15/19 14:00 11/20/19 13:59 11/15/19 13:40 Heparin Sodium (Porcine) (Heparin 5000 units/ml) 5,000 units EVERY 12 HOURS SUBQ 11/02/19 09:00 12/17/19 08:59 11/15/19 20:39 Levothyroxine Sodium (Synthroid) 50 mcg DAILY@0630 GT 10/31/19 06:30 11/30/19 06:29 11/15/19 05:49 Linezolid 300 ml @ 300 mls/hr Q12HR IVPB 11/02/19 13:30 11/15/19 23:59 11/15/19 20:38 Lorazepam (Ativan 2mg/ml 1ml) 2 mg Q4H PRN IV For Anxiety 11/14/19 21:15 11/21/19 21:14 11/15/19 20:39 Norepinephrine Bitartrate 4 mg/ Dextrose 254 ml @ 0 mls/hr Q24H IV 10/30/19 22:00 11/29/19 21:59 11/01/19 23:54 Ondansetron HCl (Zofran) 4 mg Q6H PRN IVP Nausea & Vomiting 10/30/19 11:15 11/29/19 11:14 11/12/19 23:52 Pantoprazole (Protonix) 40 mg DAILY IVP 10/31/19 09:00 11/30/19 08:59 11/15/19 08:58 Polyethylene Glycol (Miralax) 17 gm DAILYPRN PRN ORAL Constipation 10/30/19 11:15 11/29/19 11:14 Quetiapine Fumarate (SEROqueL) 100 mg Q12HR GT 10/30/19 23:00 12/14/19 22:59 11/15/19 20:38 Allergies: Coded Allergies: No Known Allergies (Unverified , 10/30/19) Subjective intubated, awake, responsive, on vent in ICU. Objective Last Vital Signs Date Time Temp Pulse Resp B/P (MAP) Pulse Ox O2 Delivery O2 Flow Rate FiO2 11/15/19 22:49 72 16 40 11/15/19 22:00 84/49 (61) 98 11/15/19 20:00 Mechanical Ventilator 11/15/19 20:00 98.4 Laboratory Tests Test 11/15/19 03:20 11/15/19 08:52 White Blood Count 7.2 K/UL (4.8-10.8) Red Blood Count 3.06 M/UL (4.70-6.10) L Hemoglobin 8.6 G/DL (14.2-18.0) L Hematocrit 25.9 % (42.0-52.0) L Mean Corpuscular Volume 85 FL (80-99) Mean Corpuscular Hemoglobin 28.2 PG (27.0-31.0) Mean Corpuscular Hemoglobin Concent 33.4 G/DL (32.0-36.0) Red Cell Distribution Width 16.3 % (11.6-14.8) H Platelet Count 225 K/UL (150-450) Mean Platelet Volume 5.0 FL (6.5-10.1) L Neutrophils (%) (Auto) 56.1 % (45.0-75.0) Lymphocytes (%) (Auto) 24.0 % (20.0-45.0) Monocytes (%) (Auto) 13.5 % (1.0-10.0) H Eosinophils (%) (Auto) 4.9 % (0.0-3.0) H Basophils (%) (Auto) 1.6 % (0.0-2.0) Sodium Level 140 MMOL/L (136-145) Potassium Level 4.0 MMOL/L (3.5-5.1) Chloride Level 108 MMOL/L (98-107) H Carbon Dioxide Level 24 MMOL/L (21-32) Anion Gap 8 mmol/L (5-15) Blood Urea Nitrogen 15 mg/dL (7-18) Creatinine 0.8 MG/DL (0.55-1.30) Estimat Glomerular Filtration Rate > 60 mL/min (>60) Glucose Level 80 MG/DL (74-106) Calcium Level 8.2 MG/DL (8.5-10.1) L Phosphorus Level 3.4 MG/DL (2.5-4.9) Magnesium Level 2.1 MG/DL (1.8-2.4) Total Bilirubin 0.2 MG/DL (0.2-1.0) Aspartate Amino Transf (AST/SGOT) 51 U/L (15-37) H Alanine Aminotransferase (ALT/SGPT) 67 U/L (12-78) Alkaline Phosphatase 155 U/L (46-116) H Total Protein 5.9 G/DL (6.4-8.2) L Albumin 1.9 G/DL (3.4-5.0) L Globulin 4.0 g/dL Albumin/Globulin Ratio 0.5 (1.0-2.7) L Arterial Blood pH 7.391 (7.350-7.450) Arterial Blood Partial Pressure CO2 39.7 mmHg (35.0-45.0) Arterial Blood Partial Pressure O2 132.5 mmHg (75.0-100.0) H Arterial Blood HCO3 23.5 mmol/L (22.0-26.0) Arterial Blood Oxygen Saturation 98.0 % (95-100) Arterial Blood Base Excess -1.3 (-2-2) Ty Test Positive Intake and Output 11/14/19 11/15/19 19:00 07:00 Intake Total 1230.0 ml 1170.0 ml Output Total 1310 ml 795 ml Balance -80.0 ml 375.0 ml Intake Free Water 150 ml 100 ml IV Total 505.0 ml 410.0 ml Tube Feeding 575 ml 600 ml Other 60 ml Output Urine Total 1210 ml 745 ml Stool Total 100 ml 50 ml Objective General: intubated, awake, responsive. HEENT: NCAT, sclera anicteric, PERRL, EOMI, ET tube. Neck: Supple, no significant jugular venous distention, Lungs: Mechanical breath sound, decrease air at bases, no Wheeze or Rales. Heart: Regular rate and rhythm, normal S1/S2, no murmurs. Abdomen: soft, nontender, nondistended. Normoactive bowel sound, + PEG, Extremities: No Cyanosis , clubbing or edema. Neuro: A&O x 2, Able to move all extremities Skin: warm, no rash. Assessment/Plan Status Narrative 1. Acute Hypoxemic Respiratory failure. 2. Pneumonia. 3. Esophageal cancer. 4. Diabetes type 2. 5. Hypertension. 6. Hypercholesterolemia. 7. Atrial fibrillation. 8. Hypothyroidism. 9. Dysphagia. 10. History of prostate cancer. 11. Influenza A positive. 12. Septic shock. 13. Acute UTI. 14. VRE Bacteremia. TREATMENT: 1. Pneumonia/respiratory failure. A Pulmonary consultation has been obtained with Dr. Jackie Kaiser. An Infectious Disease consultation has been obtained with Dr. Martinez. We will follow recommendations of Infectious Disease and Pulmonary. A sputum culture is pending. 2. Esophageal cancer. 3. Diabetes type 2. A NovoLog sliding scale has been instituted. 4. Hypertension. The patient is currently hypotensive and probable sepsis. 5. Hypercholesterolemia. Continue atorvastatin as above. 6. Atrial fibrillation. Continue amiodarone as above. 7. Hypothyroidism. Continue levothyroxine as above. 8. Dysphagia, status post PEG placement. 9. History of prostate cancer. Tolerated Tube feeding @ 50 cc/hr COVID 19 test negative X 2, Abx: Ertapenem IV DVT Prophylaxis: Heparin SQ F/U with labs and cultures. Linezolid #14/14 for VRE bacteremia Switch Zosyn #2 to Ertapenem for ESBL PNA Danny Stark MD Nov 15, 2019 23:31
[2019-11-16] VITALS (26 sets, daily range): BP systolic 63–128; BP diastolic 31–79
--- NOTE | 2019-11-16 01:30 | NUR ---
NURSE NOTES: Patient in bed sleeping comfortably. no s/s of acute distress noted. no fever.will continue plan of care
--- NOTE | 2019-11-16 03:30 | NUR ---
NURSE NOTES: turned and repositioned patient in bed. no s/s of acute distress noted. will continue plan of care.
--- NOTE | 2019-11-16 05:30 | NUR ---
NURSE NOTES: Turned and repositioned patient. comfort measure provided. will continue plan of care.
--- NOTE | 2019-11-16 07:06 | NUR ---
HAND-OFF: Report given to Romario ROBLEDO.
--- NOTE | 2019-11-16 07:10 | NUR ---
NURSE NOTES: Received report from VENKAT Silverman. Patient awake and responsive to verbal. ETT 7.5/21cm at lip line with vent setting AC 16, VT 600 and FiO2 30%. GT intact and running with Glucerna 1.5 @ 50ml/hr. Rectal tube in place and draining with brown liquid stool. Patel intact and draining with yellow color urine. Left wrist 20G and right hand 20G IV intact with TKO. Bilateral soft wrist band restraints on. Both hands are warm to touch. Kept dry, clean, comfortable and HOB>30. Will continue plan of care.
--- NOTE | 2019-11-16 07:43 | NUR ---
NURSE NOTES: Seen by TONJA Perez and assessed patient.
--- NOTE | 2019-11-16 08:54 | Pulmonolgy Critical Care Note ---
Critical Care - Asmt/Plan Assessment/Plan: ASSESSMENT Acute respiratory failure requiring intubation Septic shock Sepsis with VRE bacteremia Pneumonia with E coli ESBL Influenza A Acute kidney injury -resolved Atrial fibrillation paroxysmal COPD Esophageal cancer History of prostate cancer Anemia Transaminitis PLAN of CARE ICU vent support pulmonary toilet fup with ABG and CXR, off pressors weaning protocol and wean as tolerated on Amiodarone rate controlled , currently in SR COVID by PCR NGT BCX + VRE , repeated BCX NGT influenza screen +influenza A , s/p Rx with Tamiflu will need 2 wkx of Zyvox as per ID-completed Echo with pEF 55% , no evidence of vegetation 11/08 BCX NGT 11/08 UCX NGT 11/08 SCX + E coli MDR/ESBL abx as per ID s/p IVF JESSICA resolved monitor renal parameters, lytes , correct electrolytes as needed , avoid nephrotoxic monitor H&H with goal to keep hemoglobin above 7 stool OB positive LFT trending down case discussed and evaluated by supervising physician Critical Care - Objective Last 24 Hour Vital Signs Date Time Temp Pulse Resp B/P (MAP) Pulse Ox O2 Delivery O2 Flow Rate FiO2 11/16/19 07:01 60 16 40 11/16/19 07:00 58 16 116/66 (83) 99 11/16/19 06:30 61 20 11/16/19 06:12 65 16 91/49 (63) 99 11/16/19 06:00 69 16 63/31 (42) 96 11/16/19 05:00 76 18 118/55 (76) 97 11/16/19 04:00 30 11/16/19 04:00 98.4 73 17 97/78 (84) 96 11/16/19 04:00 Mechanical Ventilator 11/16/19 04:00 70 11/16/19 03:10 68 16 40 11/16/19 03:00 69 16 113/53 (73) 98 11/16/19 02:00 73 16 113/52 (72) 97 11/16/19 01:00 74 17 116/50 (72) 95 11/16/19 00:35 73 16 91/51 (64) 100 11/16/19 00:00 97.8 61 16 83/49 (60) 99 11/16/19 00:00 30 11/16/19 00:00 70 11/16/19 00:00 Mechanical Ventilator 11/15/19 23:30 70 17 100/60 (73) 98 11/15/19 23:00 71 16 97/61 (73) 98 11/15/19 22:49 72 16 40 11/15/19 22:00 113/52 11/15/19 22:00 71 16 84/49 (61) 98 11/15/19 21:00 78 17 92/60 (71) 100 11/15/19 20:30 76 17 129/71 (90) 100 11/15/19 20:00 73 11/15/19 20:00 Mechanical Ventilator 11/15/19 20:00 98.4 82 24 115/62 (79) 98 11/15/19 20:00 30 11/15/19 19:00 75 16 40 11/15/19 19:00 77 16 108/58 (75) 98 11/15/19 18:00 74 16 96/60 (72) 97 11/15/19 17:00 71 16 104/55 (71) 97 11/15/19 16:34 73 16 30 11/15/19 16:00 Mechanical Ventilator 11/15/19 16:00 98.2 72 16 94/56 (69) 96 11/15/19 16:00 30 11/15/19 16:00 74 11/15/19 15:15 72 16 30 11/15/19 15:00 80 16 110/54 (72) 96 11/15/19 14:00 75 17 96/55 (69) 95 11/15/19 13:00 30 11/15/19 13:00 72 16 96/53 (67) 92 11/15/19 12:50 70 19 30 11/15/19 12:00 Mechanical Ventilator 11/15/19 12:00 98.0 71 25 98/54 (69) 98 11/15/19 12:00 40 11/15/19 12:00 68 11/15/19 11:00 68 27 103/54 (70) 99 11/15/19 10:51 65 27 40 11/15/19 10:00 71 24 101/55 (70) 99 11/15/19 09:00 71 28 126/62 (83) 100 11/15/19 08:50 74 27 40 Objective: Condition: critical, intubated ,a wake, responsive HEENT: atraumatic, normocephalic, OP with ET in place, intact Lungs: BS overall clear Heart: HR/BP stable Abdomen: soft, non-tender Extremities: no edema Lines: R chest Koby-cath Critical Care - Subjective ROS Limited/Unobtainable: Yes Interval Events: remain intubated, on weaning protocol awake leuk resolve, no fevers Condition: critical EKG Rhythm: Sinus Rhythm FI02: 40 Vent Support Breath Rate: 16 Vent Support Mode: AC Vent Tidal Volume: 600 Sputum Amount: Small PEEP: 0.0 PIP: 33 Tube Feeding Amount: 50 I&O: Intake and Output 11/15/19 11/16/19 19:00 07:00 Intake Total 1155 ml 1060 ml Output Total 560 ml 530 ml Balance 595 ml 530 ml Intake Free Water 200 ml 100 ml IV Total 355 ml 300 ml Tube Feeding 600 ml 600 ml Other 60 ml Output Urine Total 360 ml 380 ml Stool Total 200 ml 150 ml CXR: 11/14 -probably unchanged bilateral interstitial and airspace disease. Right chest port catheter remains ET-Tube: 7.5 ET Position: 21 Ana Flores [employer] Nov 16, 2019 08:54
[2019-11-16] MEDS: Amiodarone 200mg tab PEG SCH (08:56)
[2019-11-16] MEDS: Pantoprazole Inj IVP SCH (08:56)
[2019-11-16] MEDS: Heparin 5000 units/ml inj SUBQ SCH ×2 (08:58→20:20)
[2019-11-16] MEDS ORDERED: Albuterol/Ipratropium 3ml neb HHN PRN (09:00)
--- NOTE | 2019-11-16 09:10 | NUR ---
NURSE NOTES: Seen by Dr. Crews and assessed patient.
--- NOTE | 2019-11-16 10:36 | Infectious Diseases Prog Note ---
Assessment/Plan Assessment/Plan A: Low grade fever x1, SP Leukocytosis, neutrophil predominant, recurrent; improving -11/10 u/a neg; ucx NTD -11/08 Cdiff neg Septic shock, sp off of pressors PNA- persistent infiltrates, hypoxia- COVID19 neg x2 Influenza A, sp rx SARS CoV PCR negative x2 (10/29, 11/10) 11/11 CXR: Bilateral diffuse interstitial and airspace infiltrates are unchanged.Stable satisfactory position of endotracheal tube and right jugular port catheter.The heart size is normal. 11/10 sp cx C. tropicalis, ESBL E.coli (S Zosyn, Ertapenem) 11/09 CXR: Persistent basilar predominant interstitial and airspace infiltrates. Edema and infection are again both possibilities. Also consider superimposed malignancy, particularly given infusion ports. CXR: Bilateral mostly nodular mostly interstitial disease, as described. This could represent interstitial pneumonia or edema, among many other possibilities. However, given the nodular appearance and the presence of an infusion catheter the possibility of nodular metastatic disease should also be considered. Unlikely UTI UA 10-15 WBC UCx: NG VRE bacteremia 10/29 BCx: VRE; 10/31 Bcx neg 10/29 TTE: focal AV sclerosis with adequate cusp excursion. thickened MV leaflets with normal excursion. mild mitral annulus and aortic root calcification. normal TV. no MR. mild TR. PV not visualized. QTc 552 Afib COPD Hypothyroid Dyslipidemia HTN DM Anemia CVA G tube, h/o abscess complication head and neck cancer Plan: - Continue Ertapenem #2 (Abx #3/7) for ESBL PNA 11/15/19 SP Linezolid #/ for VRE bacteremia and Zosyn #2 11/03 Tamiflu #5 11/03 DC amikacin and ertapenem #4 11/01 SP Vanc #3 monitor temp and CBC monitor resp status COVID19 neg x2, Influenza A upon admission- repeat influenza swab to determine isolation status f/u bcx TTE without severe valve insufficiency and bacteremia low grade. recommend repeating bcx at end of therapy to ensure resolution of bacteremia. If has recurrent fevers, will recommend ILENE. WENDI RN Thank you for this consult. [facility] Will continue to follow the patient with you. Subjective Allergies: Coded Allergies: No Known Allergies (Unverified , 10/30/19) Subjective Afebrile On Vent 40% O2 Objective Vital Signs Last 24 Hour Vital Signs Date Time Temp Pulse Resp B/P (MAP) Pulse Ox O2 Delivery O2 Flow Rate FiO2 11/16/19 09:05 72 18 40 11/16/19 07:01 60 16 40 11/16/19 07:00 58 16 116/66 (83) 99 11/16/19 06:30 61 20 11/16/19 06:12 65 16 91/49 (63) 99 11/16/19 06:00 69 16 63/31 (42) 96 11/16/19 05:00 76 18 118/55 (76) 97 11/16/19 04:00 30 11/16/19 04:00 98.4 73 17 97/78 (84) 96 11/16/19 04:00 Mechanical Ventilator 11/16/19 04:00 70 11/16/19 03:10 68 16 40 11/16/19 03:00 69 16 113/53 (73) 98 11/16/19 02:00 73 16 113/52 (72) 97 11/16/19 01:00 74 17 116/50 (72) 95 11/16/19 00:35 73 16 91/51 (64) 100 11/16/19 00:00 97.8 61 16 83/49 (60) 99 11/16/19 00:00 30 11/16/19 00:00 70 11/16/19 00:00 Mechanical Ventilator 11/15/19 23:30 70 17 100/60 (73) 98 11/15/19 23:00 71 16 97/61 (73) 98 11/15/19 22:49 72 16 40 11/15/19 22:00 113/52 11/15/19 22:00 71 16 84/49 (61) 98 11/15/19 21:00 78 17 92/60 (71) 100 11/15/19 20:30 76 17 129/71 (90) 100 11/15/19 20:00 73 11/15/19 20:00 Mechanical Ventilator 11/15/19 20:00 98.4 82 24 115/62 (79) 98 11/15/19 20:00 30 11/15/19 19:00 75 16 40 11/15/19 19:00 77 16 108/58 (75) 98 11/15/19 18:00 74 16 96/60 (72) 97 11/15/19 17:00 71 16 104/55 (71) 97 11/15/19 16:34 73 16 30 11/15/19 16:00 Mechanical Ventilator 11/15/19 16:00 98.2 72 16 94/56 (69) 96 11/15/19 16:00 30 11/15/19 16:00 74 11/15/19 15:15 72 16 30 11/15/19 15:00 80 16 110/54 (72) 96 11/15/19 14:00 75 17 96/55 (69) 95 11/15/19 13:00 30 11/15/19 13:00 72 16 96/53 (67) 92 11/15/19 12:50 70 19 30 11/15/19 12:00 Mechanical Ventilator 11/15/19 12:00 98.0 71 25 98/54 (69) 98 11/15/19 12:00 40 11/15/19 12:00 68 11/15/19 11:00 68 27 103/54 (70) 99 11/15/19 10:51 65 27 40 Height (Feet): 6 Height (Inches): 1.00 Weight (Pounds): 150 Objective Unable to examine due lack of available PPE Current Medications Medications (Trade) Dose Ordered Sig/Tasha Route PRN Reason Start Time Stop Time Status Last Admin Dose Admin Acetaminophen (Tylenol) 650 mg Q4H PRN ORAL fever 10/30/19 11:15 11/29/19 11:14 11/10/19 19:43 Albuterol/ Ipratropium (Albuterol/ Ipratropium) 3 ml Q4HRT PRN HHN sob 11/16/19 09:00 11/21/19 08:59 Amiodarone HCl (Cordarone) 100 mg DAILY PEG 11/04/19 09:00 01/29/20 08:59 11/16/19 08:56 Ertapenem 1 gm/ Sodium Chloride 55 ml @ 110 mls/hr Q24H IVPB 11/15/19 14:00 11/20/19 13:59 11/15/19 13:40 Heparin Sodium (Porcine) (Heparin 5000 units/ml) 5,000 units EVERY 12 HOURS SUBQ 11/02/19 09:00 12/17/19 08:59 11/16/19 08:58 Levothyroxine Sodium (Synthroid) 50 mcg DAILY@0630 GT 10/31/19 06:30 11/30/19 06:29 11/16/19 06:55 Lorazepam (Ativan 2mg/ml 1ml) 2 mg Q4H PRN IV For Anxiety 11/14/19 21:15 11/21/19 21:14 11/15/19 20:39 Norepinephrine Bitartrate 4 mg/ Dextrose 254 ml @ 0 mls/hr Q24H IV 10/30/19 22:00 11/29/19 21:59 11/01/19 23:54 Ondansetron HCl (Zofran) 4 mg Q6H PRN IVP Nausea & Vomiting 10/30/19 11:15 11/29/19 11:14 11/12/19 23:52 Pantoprazole (Protonix) 40 mg DAILY IVP 10/31/19 09:00 11/30/19 08:59 11/16/19 08:56 Polyethylene Glycol (Miralax) 17 gm DAILYPRN PRN ORAL Constipation 10/30/19 11:15 11/29/19 11:14 Quetiapine Fumarate (SEROqueL) 100 mg Q12HR GT 10/30/19 23:00 12/14/19 22:59 11/16/19 08:56 Mick Alcocer MD Nov 16, 2019 10:36
--- NOTE | 2019-11-16 10:56 | NUR ---
NURSE NOTES: Seen by Dr. Alcocer and assessed patient. Informed patient is positive for ESBL sputum.
--- NOTE | 2019-11-16 12:02 | NUR ---
NURSE NOTES: Repositioned patient and provided oral care.
--- NOTE | 2019-11-16 12:48 | Internal Med Progress Note ---
Subjective Date of Service: Nov 16, 2019 Physician Name Turcios,Gallito Attending Physician Danny Stark MD Current Medications Medications (Trade) Dose Ordered Sig/Tasha Route PRN Reason Start Time Stop Time Status Last Admin Dose Admin Acetaminophen (Tylenol) 650 mg Q4H PRN ORAL fever 10/30/19 11:15 11/29/19 11:14 11/10/19 19:43 Albuterol/ Ipratropium (Albuterol/ Ipratropium) 3 ml Q4HRT PRN HHN sob 11/16/19 09:00 11/21/19 08:59 Amiodarone HCl (Cordarone) 100 mg DAILY PEG 11/04/19 09:00 01/29/20 08:59 11/16/19 08:56 Ertapenem 1 gm/ Sodium Chloride 55 ml @ 110 mls/hr Q24H IVPB 11/15/19 14:00 11/20/19 13:59 11/15/19 13:40 Heparin Sodium (Porcine) (Heparin 5000 units/ml) 5,000 units EVERY 12 HOURS SUBQ 11/02/19 09:00 12/17/19 08:59 11/16/19 08:58 Levothyroxine Sodium (Synthroid) 50 mcg DAILY@0630 GT 10/31/19 06:30 11/30/19 06:29 11/16/19 06:55 Lorazepam (Ativan 2mg/ml 1ml) 2 mg Q4H PRN IV For Anxiety 11/14/19 21:15 11/21/19 21:14 11/15/19 20:39 Norepinephrine Bitartrate 4 mg/ Dextrose 254 ml @ 0 mls/hr Q24H IV 10/30/19 22:00 11/29/19 21:59 11/01/19 23:54 Ondansetron HCl (Zofran) 4 mg Q6H PRN IVP Nausea & Vomiting 10/30/19 11:15 11/29/19 11:14 11/12/19 23:52 Pantoprazole (Protonix) 40 mg DAILY IVP 10/31/19 09:00 11/30/19 08:59 11/16/19 08:56 Polyethylene Glycol (Miralax) 17 gm DAILYPRN PRN ORAL Constipation 10/30/19 11:15 11/29/19 11:14 Quetiapine Fumarate (SEROqueL) 100 mg Q12HR GT 10/30/19 23:00 12/14/19 22:59 11/16/19 08:56 Allergies: Coded Allergies: No Known Allergies (Unverified , 10/30/19) ROS Limited/Unobtainable: Yes Subjective 73 YO M with history of esophageal cancer admitted with respiratory failure. Cover for [facility]-Dr Stark. ICU. Intubted and sedated. Objective Last Vital Signs Date Time Temp Pulse Resp B/P (MAP) Pulse Ox O2 Delivery O2 Flow Rate FiO2 11/16/19 12:00 Mechanical Ventilator 11/16/19 12:00 30 11/16/19 12:00 98.0 83 18 125/77 (93) 99 Intake and Output 11/15/19 11/16/19 19:00 07:00 Intake Total 1155 ml 1060 ml Output Total 560 ml 530 ml Balance 595 ml 530 ml Intake Free Water 200 ml 100 ml IV Total 355 ml 300 ml Tube Feeding 600 ml 600 ml Other 60 ml Output Urine Total 360 ml 380 ml Stool Total 200 ml 150 ml Objective PHYSICAL EXAMINATION: VITAL SIGNS: Temperature 98.1, respirations 25, pulse 92, blood pressure 95/59. GENERAL: The patient is well-developed, well-nourished male, who is intubated and sedated. HEENT: Eyes, pupils are equal and responsive to light and accommodation. Extraocular movements are intact. NECK: Supple without lymphadenopathy. CHEST: Mech vent; Coarse mechanical breath sounds bilaterally without wheezes or rales. CARDIOVASCULAR: Regular rhythm and rate. S1, S2 are normal without murmurs, rubs, or gallops. ABDOMEN: Soft, nontender, and nondistended. Positive bowel sounds. No evidence of hepatosplenomegaly. Currently, no rebound or guarding noted. EXTREMITIES: Negative for clubbing, cyanosis, or edema. RECTAL/GENITAL: Not performed. NEUROLOGICAL: Unable to assess. Assessment/Plan Assessment/Plan ASSESSMENT: This is a 73-year-old male. 1. Respiratory failure. 2. Pneumonia=ESBL E. Coli. 3. Esophageal cancer. 4. Diabetes type 2. 5. Hypertension. 6. Hypercholesterolemia. 7. Atrial fibrillation. 8. Hypothyroidism. 9. Dysphagia. 10. History of prostate cancer. 11. Sepsis=Enterococcus (VRE) TREATMENT: 1. Pneumonia/respiratory failure. ESBL E. Coli A Pulmonary consultation has been obtained with Dr. Jackie Kaiser. An Infectious Disease consultation has been obtained with Dr. Sy. We will follow recommendations of Infectious Disease and Pulmonary. COVID 19=neg X2 2. Esophageal cancer. 3. Diabetes type 2. A NovoLog sliding scale has been instituted. 4. Hypertension. The patient is currently hypotensive secondary to sepsis. 5. Hypercholesterolemia. Continue atorvastatin as above. 6. Atrial fibrillation. Continue amiodarone as above. 7. Hypothyroidism. Continue levothyroxine as above. 8. Dysphagia, status post PEG placement. 9. History of prostate cancer. 10. ABX = ertapenem. Gallito Turcios MD Nov 16, 2019 12:48
[2019-11-16] MEDS: Ertapenem 1 GM in NS 55 ML IVPB SCH (13:02)
[2019-11-16] MEDS ORDERED: NS 275ml ONE (13:20)
[2019-11-16] MEDS ORDERED: Tubing IV Secondary IV ONE (13:20)
--- NOTE | 2019-11-16 15:52 | Cardiology Progress Note ---
Assessment/Plan Assessment/Plan 1. Paroxysmal episodes of atrial fibrillation. 2. Respiratory failure. 3. Influenza A positive. covid negX1 4. Malignant neoplasm of the larynx. 5. History of hypertension. 6. History of hyperlipidemia. 7. History of hypothyroidism. 8. Respiratory failure on a mechanical ventilator. 9. Diabetes mellitus type 2. 10. Coagulopathy. 11. Abnormal liver function tests. 12. Hypotension likely from sepsis and shock 13. VRE bacteremia 14. Hypotension resolved influenza positive covid neg bp is at times lwo pos sedative off pressor anemic but stable wbc improving final echo noted tele reviewed sinus no afib documented wean when feasible afebril tele sinus personally reviewed Subjective Subjective on vent per rn mod secretion is awake no diarrhea no vomiting but has a rectal tube sat are fien no further bp drops Objective Last 24 Hour Vital Signs Date Time Temp Pulse Resp B/P (MAP) Pulse Ox O2 Delivery O2 Flow Rate FiO2 11/16/19 13:20 74 18 40 11/16/19 13:00 72 16 93/59 (70) 98 11/16/19 12:00 Mechanical Ventilator 11/16/19 12:00 71 11/16/19 12:00 30 11/16/19 12:00 98.0 83 18 125/77 (93) 99 11/16/19 11:00 79 16 112/68 (83) 98 11/16/19 10:50 78 20 40 11/16/19 10:00 77 15 94/59 (71) 96 11/16/19 09:05 72 18 40 11/16/19 09:00 64 16 114/55 (74) 100 11/16/19 08:00 97.8 68 17 100/48 (65) 98 11/16/19 08:00 Mechanical Ventilator 11/16/19 08:00 72 11/16/19 08:00 30 11/16/19 07:01 60 16 40 11/16/19 07:00 58 16 116/66 (83) 99 11/16/19 06:30 61 20 11/16/19 06:12 65 16 91/49 (63) 99 11/16/19 06:00 69 16 63/31 (42) 96 11/16/19 05:00 76 18 118/55 (76) 97 11/16/19 04:00 30 11/16/19 04:00 98.4 73 17 97/78 (84) 96 11/16/19 04:00 Mechanical Ventilator 11/16/19 04:00 70 11/16/19 03:10 68 16 40 11/16/19 03:00 69 16 113/53 (73) 98 11/16/19 02:00 73 16 113/52 (72) 97 11/16/19 01:00 74 17 116/50 (72) 95 11/16/19 00:35 73 16 91/51 (64) 100 11/16/19 00:00 97.8 61 16 83/49 (60) 99 11/16/19 00:00 30 11/16/19 00:00 70 11/16/19 00:00 Mechanical Ventilator 11/15/19 23:30 70 17 100/60 (73) 98 11/15/19 23:00 71 16 97/61 (73) 98 11/15/19 22:49 72 16 40 11/15/19 22:00 113/52 11/15/19 22:00 71 16 84/49 (61) 98 11/15/19 21:00 78 17 92/60 (71) 100 11/15/19 20:30 76 17 129/71 (90) 100 11/15/19 20:00 73 11/15/19 20:00 Mechanical Ventilator 11/15/19 20:00 98.4 82 24 115/62 (79) 98 11/15/19 20:00 30 11/15/19 19:00 75 16 40 11/15/19 19:00 77 16 108/58 (75) 98 11/15/19 18:00 74 16 96/60 (72) 97 11/15/19 17:00 71 16 104/55 (71) 97 11/15/19 16:34 73 16 30 11/15/19 16:00 Mechanical Ventilator 11/15/19 16:00 98.2 72 16 94/56 (69) 96 11/15/19 16:00 30 11/15/19 16:00 74 General Appearance: no apparent distress, alert, on vent, patient on isolation , isolation precautions, other - movign aroudn in bed resposnd to procedures rn and Output 11/15/19 11/16/19 19:00 07:00 Intake Total 1155 ml 1060 ml Output Total 560 ml 530 ml Balance 595 ml 530 ml Intake Free Water 200 ml 100 ml IV Total 355 ml 300 ml Tube Feeding 600 ml 600 ml Other 60 ml Output Urine Total 360 ml 380 ml Stool Total 200 ml 150 ml Carlos Slade MD Nov 16, 2019 15:52
--- NOTE | 2019-11-16 16:11 | NUR ---
NURSE NOTES: Oral and ETT suction given. Repositioned.
--- NOTE | 2019-11-16 16:25 | NUR ---
NURSE NOTES: Bed bath given. Kept dry and comfortable.
--- NOTE | 2019-11-16 18:02 | NUR ---
NURSE NOTES: Repositioned patient. ETT 7.5/21cm at lip line with vent setting AC 16, VT 600 and FiO2 40%. Tube feeding glucerna 1.5 @50ml/hr. Kept dry, clean and comfortable.
--- NOTE | 2019-11-16 19:14 | NUR ---
RESPIRATORY NOTE: Received pt on AC 16, 600VT, 40%, no PEEP. Pt intubated w/ ETT 7.5 @ 21cm lipline, secured by anchorfast. Pt is awake, responds to stimuli. B/S marcy. rhonchi, sxn moderate to large amounts of thick/thin/frothy, pale-yellow secretions. Vent plugged into red outlet, ambubag at bedside. Pt in no apparent distress at this time. Will continue to monitor pt.
--- NOTE | 2019-11-16 19:15 | NUR ---
HAND-OFF: Report given to VENKAT Silverman. Endorsed plan of care.
--- NOTE | 2019-11-16 19:16 | NUR ---
NURSE NOTES: Received report from VENKAT Downey. Patient awake and responsive to verbal, able to follow simple commands. watching TV. ETT 7.5/21cm at lip line with vent setting AC 16, VT 600, 0 peep, FiO2 30%. G-tube intact infusing Glucerna 1.5 50ml/hr no residual. HOB elevated . Rectal tube intact and draining brown liquid color stool. IV line intact no s/s of infiltration. Bilateral soft wrist non violent restraints on. Both hands are warm to touch. Kept dry, clean, comfortable and HOB>30. contact isolation maintained and observed. Will continue plan of care.
[2019-11-16] MEDS: LORazepam Inj 2mg/ml 1ml IV PRN (20:28)
--- NOTE | 2019-11-16 20:45 | NUR ---
NURSE NOTES: patient with episode of anxiety, agitation trying to get out from bed and pull out tubing, trying to put the legs down on the bedside. reality orientation provided, encouraged patient to make needs known to staff, TV and repositioned patient not effective. Ativan given effective will continue to monitor patient.
--- NOTE | 2019-11-16 23:00 | NUR ---
NURSE NOTES: Repositioned patient in bed. no s/s of acute distress noted. will continue plan of care.
[2019-11-17] VITALS (24 sets, daily range): BP systolic 106–129; BP diastolic 61–83
--- NOTE | 2019-11-17 01:00 | NUR ---
bed bath given tolerated well.
--- NOTE | 2019-11-17 03:00 | NUR ---
Bilateral soft wrist non violent restraints on. Both hands are warm to touch. Kept dry, clean, comfortable and HOB>30. contact isolation maintained and observed. Will continue plan of care.
--- NOTE | 2019-11-17 05:00 | NUR ---
NURSE NOTES: Patient in bed turned and repositioned. no s/s of acute distress. kept clean and dry. will continue plan of care.
[2019-11-17 06:47] LABS: BASOPHILS % (AUTO) 1.4 % (0.0-2.0); EOSINOPHILS % (AUTO) 3.6 % (0.0-3.0); HEMATOCRIT 28.4 % (42.0-52.0); HEMOGLOBIN 9.3 G/DL (14.2-18.0); LYMPHOCYTES % (AUTO) 25.5 % (20.0-45.0); MEAN CORPUSCULAR VOLUME 85 FL (80-99); MONOCYTES % (AUTO) 12.8 % (1.0-10.0); NEUTROPHILS % (AUTO) 56.7 % (45.0-75.0); PLATELET COUNT 265 K/UL (150-450); RED BLOOD COUNT 3.32 M/UL (4.70-6.10); RED CELL DISTRIBUTION WIDTH 17.4 % (11.6-14.8); WHITE BLOOD COUNT 8.5 K/UL (4.8-10.8)
[2019-11-17 07:06] LABS: ANION GAP 10 mmol/L (5-15); BLOOD UREA NITROGEN 15 mg/dL (7-18); CALCIUM 8.1 MG/DL (8.5-10.1); CARBON DIOXIDE 23 MMOL/L (21-32); CHLORIDE 109 MMOL/L (98-107); POTASSIUM 4.4 MMOL/L (3.5-5.1); SODIUM 142 MMOL/L (136-145)
--- NOTE | 2019-11-17 07:10 | NUR ---
HAND-OFF: Report given to Shayan ROBLEDO.
--- NOTE | 2019-11-17 07:12 | NUR ---
NURSE NOTES: Received report from VENKAT Silverman. Patient is awake and responsive to verbal. ETT 7.5/21cm at lip line with vent setting AC 16, VT 600 and FiO2 40%. Gtube intact and running with glucerna 1.5 @ 50ml/hr. Left wrist 20G IV intact with TKO. Bilateral soft wrist bands restraints on. Both hands are warm to touch. Kept dry, clean, comfortable and HOB>30. Will continue plan of care.
--- NOTE | 2019-11-17 08:17 | Pulmonolgy Critical Care Note ---
Critical Care - Asmt/Plan Assessment/Plan: ASSESSMENT Acute respiratory failure requiring intubation Septic shock Sepsis with VRE bacteremia Pneumonia with E coli ESBL Influenza A Acute kidney injury -resolved Atrial fibrillation paroxysmal COPD Esophageal cancer History of prostate cancer Anemia Transaminitis PLAN of CARE ICU vent support pulmonary toilet fup with ABG and CXR, off pressors weaning protocol and wean as tolerated on Amiodarone , rate controlled , currently in SR COVID by PCR NGT BCX + VRE , repeated BCX NGT influenza screen +influenza A , s/p Rx with Tamiflu will need 2 wkx of Zyvox as per ID-completed Echo with pEF 55% , no evidence of vegetation 11/08 BCX NGT 11/08 UCX NGT 11/08 SCX + E coli MDR/ESBL abx as per ID s/p IVF JESSICA resolved monitor renal parameters, lytes , correct electrolytes as needed , avoid nephrotoxic monitor H&H with goal to keep hemoglobin above 7 stool OB positive LFT trending down case discussed and evaluated by supervising physician Critical Care - Objective Last 24 Hour Vital Signs Date Time Temp Pulse Resp B/P (MAP) Pulse Ox O2 Delivery O2 Flow Rate FiO2 11/17/19 07:22 70 16 40 11/17/19 06:30 69 16 11/17/19 06:00 98.6 73 16 129/68 (88) 99 11/17/19 05:06 77 19 40 11/17/19 05:00 76 16 110/72 (85) 98 11/17/19 04:00 Mechanical Ventilator 11/17/19 04:00 99.0 71 16 108/80 (89) 100 11/17/19 04:00 67 11/17/19 04:00 30 11/17/19 03:14 79 16 40 11/17/19 03:00 75 16 115/70 (85) 98 11/17/19 02:00 76 16 117/62 (80) 98 11/17/19 01:37 73 16 40 11/17/19 01:00 75 16 111/63 (79) 98 11/17/19 00:00 98.7 70 15 111/61 (78) 99 11/17/19 00:00 30 11/17/19 00:00 Mechanical Ventilator 11/17/19 00:00 70 11/16/19 23:15 72 16 40 11/16/19 23:00 70 16 118/62 (80) 100 11/16/19 22:00 62 16 99/66 (77) 100 11/16/19 22:00 111/63 11/16/19 21:05 75 16 40 11/16/19 21:00 75 17 109/72 (84) 95 11/16/19 20:00 77 11/16/19 20:00 30 11/16/19 20:00 Mechanical Ventilator 11/16/19 20:00 99.0 77 16 124/64 (84) 100 11/16/19 19:10 76 21 40 11/16/19 19:00 78 16 128/62 (84) 100 11/16/19 18:00 67 16 116/61 (79) 100 11/16/19 17:22 78 18 40 11/16/19 17:00 69 16 107/57 (74) 99 11/16/19 16:00 30 11/16/19 16:00 74 16 103/58 (73) 100 11/16/19 16:00 Mechanical Ventilator 11/16/19 16:00 73 11/16/19 16:00 97.8 74 16 103/58 (73) 100 11/16/19 15:10 82 20 40 11/16/19 15:00 80 19 122/79 (93) 98 11/16/19 14:00 72 16 104/70 (81) 98 11/16/19 13:20 74 18 40 11/16/19 13:00 72 16 93/59 (70) 98 11/16/19 12:00 Mechanical Ventilator 11/16/19 12:00 71 11/16/19 12:00 30 11/16/19 12:00 98.0 83 18 125/77 (93) 99 11/16/19 11:00 79 16 112/68 (83) 98 11/16/19 10:50 78 20 40 11/16/19 10:00 77 15 94/59 (71) 96 11/16/19 09:05 72 18 40 11/16/19 09:00 64 16 114/55 (74) 100 Objective: Condition: critical, intubated ,awake, responsive HEENT: atraumatic, normocephalic, OP with ET in place, intact Lungs: BS overall clear Heart: HR/BP stable Abdomen: soft, non-tender Extremities: no edema Lines: R chest Koby-cath Critical Care - Subjective Interval Events: remains intubated, no signs of resp distress on weaning protocol Condition: critical IV Access: central - R chest Pora cath EKG Rhythm: Sinus Rhythm FI02: 40 Vent Support Breath Rate: 16 Vent Support Mode: AC Vent Tidal Volume: 600 Sputum Amount: Moderate PEEP: 0.0 PIP: 31 Tube Feeding Amount: 50 I&O: Intake and Output 11/16/19 11/17/19 19:00 07:00 Intake Total 805 ml 710 ml Output Total 540 ml 660 ml Balance 265 ml 50 ml Intake Free Water 150 ml 100 ml IV Total 55 ml Tube Feeding 600 ml 550 ml Other 60 ml Output Urine Total 540 ml 460 ml Stool Total 200 ml CXR: CXR 11/14 Probably unchanged bilateral interstitial and airspace disease. Right chest port catheter remains ET-Tube: 7.5 ET Position: 21 Ana Flores NP Nov 17, 2019 08:16
[2019-11-17] MEDS: Pantoprazole Inj IVP SCH (08:34)
[2019-11-17] MEDS: Amiodarone 200mg tab PEG SCH (08:34)
[2019-11-17] MEDS: Heparin 5000 units/ml inj SUBQ SCH ×2 (08:36→20:38)
--- NOTE | 2019-11-17 08:45 | Diagnostic Imaging Report ---
EXAM: XR Chest, 1 View CLINICAL HISTORY: Shortness of breath TECHNIQUE: Frontal view of the chest. COMPARISON: CXR 11/15/19 FINDINGS: Lungs: Bilateral interstitial and airspace opacities appear mildly worsened compared to the prior exam, with more confluent opacification seen in the right upper lobe and left lung base. Pleural space: Unremarkable. The costophrenic angles are sharp. No visible pneumothorax. Heart: Unremarkable. No cardiomegaly. Mediastinum: Unremarkable. Bones/joints: Unremarkable. Tubes, lines and devices: Stable positioning of the endotracheal tube, with the tip approximately 2.6 cm above the annemarie. Telemetry leads overlie the thorax. A right subclavian approach dual port tunneled catheter has its tip in the SVC/right atrial junction. IMPRESSION: Bilateral interstitial and airspace opacities appear mildly worsened compared to the prior exam, with more confluent opacification seen in the right upper lobe and left lung base.
--- NOTE | 2019-11-17 09:02 | NUR ---
NURSE NOTES: All due meds given as ordered. kept dry, clean and comfortable.
--- NOTE | 2019-11-17 10:22 | NUR ---
NURSE NOTES: Seen by Dr. Crews.
--- NOTE | 2019-11-17 12:10 | NUR ---
NURSE NOTES: Repositioned patient and provided oral and ETT care.
[2019-11-17] MEDS: Ertapenem 1 GM in NS 55 ML IVPB SCH (13:23)
--- NOTE | 2019-11-17 14:41 | Internal Med Progress Note ---
Subjective Date of Service: Nov 17, 2019 Physician Name Turcios,Gallito Attending Physician Danny Stark MD Current Medications Medications (Trade) Dose Ordered Sig/Tasha Route PRN Reason Start Time Stop Time Status Last Admin Dose Admin Acetaminophen (Tylenol) 650 mg Q4H PRN ORAL fever 10/30/19 11:15 11/29/19 11:14 11/10/19 19:43 Albuterol/ Ipratropium (Albuterol/ Ipratropium) 3 ml Q4HRT PRN HHN sob 11/16/19 09:00 11/21/19 08:59 Amiodarone HCl (Cordarone) 100 mg DAILY PEG 11/04/19 09:00 01/29/20 08:59 11/17/19 08:34 Ertapenem 1 gm/ Sodium Chloride 55 ml @ 110 mls/hr Q24H IVPB 11/15/19 14:00 11/20/19 13:59 11/17/19 13:23 Heparin Sodium (Porcine) (Heparin 5000 units/ml) 5,000 units EVERY 12 HOURS SUBQ 11/02/19 09:00 12/17/19 08:59 11/17/19 08:36 Levothyroxine Sodium (Synthroid) 50 mcg DAILY@0630 GT 10/31/19 06:30 11/30/19 06:29 11/17/19 05:36 Lorazepam (Ativan 2mg/ml 1ml) 2 mg Q4H PRN IV For Anxiety 11/14/19 21:15 11/21/19 21:14 11/16/19 20:28 Norepinephrine Bitartrate 4 mg/ Dextrose 254 ml @ 0 mls/hr Q24H IV 10/30/19 22:00 11/29/19 21:59 11/01/19 23:54 Ondansetron HCl (Zofran) 4 mg Q6H PRN IVP Nausea & Vomiting 10/30/19 11:15 11/29/19 11:14 11/12/19 23:52 Pantoprazole (Protonix) 40 mg DAILY IVP 10/31/19 09:00 11/30/19 08:59 11/17/19 08:34 Polyethylene Glycol (Miralax) 17 gm DAILYPRN PRN ORAL Constipation 10/30/19 11:15 11/29/19 11:14 Quetiapine Fumarate (SEROqueL) 100 mg Q12HR GT 10/30/19 23:00 12/14/19 22:59 11/17/19 08:34 Allergies: Coded Allergies: No Known Allergies (Unverified , 10/30/19) ROS Limited/Unobtainable: Yes Subjective 73 YO M with history of esophageal cancer admitted with respiratory failure. Cover for Int Elijah-Dr Stark. ICU. Intubted and sedated. Objective Last Vital Signs Date Time Temp Pulse Resp B/P (MAP) Pulse Ox O2 Delivery O2 Flow Rate FiO2 11/17/19 12:00 77 11/17/19 12:00 16 117/67 (84) 99 11/17/19 12:00 Mechanical Ventilator 11/17/19 12:00 40 11/17/19 08:00 97.8 Laboratory Tests Test 11/17/19 05:15 11/17/19 09:25 White Blood Count 8.5 K/UL (4.8-10.8) Red Blood Count 3.32 M/UL (4.70-6.10) L Hemoglobin 9.3 G/DL (14.2-18.0) L Hematocrit 28.4 % (42.0-52.0) L Mean Corpuscular Volume 85 FL (80-99) Mean Corpuscular Hemoglobin 28.1 PG (27.0-31.0) Mean Corpuscular Hemoglobin Concent 32.9 G/DL (32.0-36.0) Red Cell Distribution Width 17.4 % (11.6-14.8) H Platelet Count 265 K/UL (150-450) Mean Platelet Volume 5.0 FL (6.5-10.1) L Neutrophils (%) (Auto) 56.7 % (45.0-75.0) Lymphocytes (%) (Auto) 25.5 % (20.0-45.0) Monocytes (%) (Auto) 12.8 % (1.0-10.0) H Eosinophils (%) (Auto) 3.6 % (0.0-3.0) H Basophils (%) (Auto) 1.4 % (0.0-2.0) Sodium Level 142 MMOL/L (136-145) Potassium Level 4.4 MMOL/L (3.5-5.1) Chloride Level 109 MMOL/L (98-107) H Carbon Dioxide Level 23 MMOL/L (21-32) Anion Gap 10 mmol/L (5-15) Blood Urea Nitrogen 15 mg/dL (7-18) Creatinine 1.0 MG/DL (0.55-1.30) Estimat Glomerular Filtration Rate > 60 mL/min (>60) Glucose Level 83 MG/DL (74-106) Calcium Level 8.1 MG/DL (8.5-10.1) L Arterial Blood pH 7.487 (7.350-7.450) Arterial Blood Partial Pressure CO2 27.9 mmHg (35.0-45.0) L Arterial Blood Partial Pressure O2 97.7 mmHg (75.0-100.0) Arterial Blood HCO3 20.6 mmol/L (22.0-26.0) L Arterial Blood Oxygen Saturation 97.4 % (95-100) Arterial Blood Base Excess -2.1 (-2-2) L Ty Test Positive Intake and Output 11/16/19 11/17/19 19:00 07:00 Intake Total 805 ml 710 ml Output Total 540 ml 660 ml Balance 265 ml 50 ml Intake Free Water 150 ml 100 ml IV Total 55 ml Tube Feeding 600 ml 550 ml Other 60 ml Output Urine Total 540 ml 460 ml Stool Total 200 ml Objective PHYSICAL EXAMINATION: VITAL SIGNS: Temperature 98.1, respirations 25, pulse 92, blood pressure 95/59. GENERAL: The patient is well-developed, well-nourished male, who is intubated and sedated. HEENT: Eyes, pupils are equal and responsive to light and accommodation. Extraocular movements are intact. NECK: Supple without lymphadenopathy. CHEST: Mech vent; Coarse mechanical breath sounds bilaterally without wheezes or rales. CARDIOVASCULAR: Regular rhythm and rate. S1, S2 are normal without murmurs, rubs, or gallops. ABDOMEN: Soft, nontender, and nondistended. Positive bowel sounds. No evidence of hepatosplenomegaly. Currently, no rebound or guarding noted. EXTREMITIES: Negative for clubbing, cyanosis, or edema. RECTAL/GENITAL: Not performed. NEUROLOGICAL: Unable to assess. Assessment/Plan Assessment/Plan ASSESSMENT: This is a 73-year-old male. 1. Respiratory failure. 2. Pneumonia=ESBL E. Coli. 3. Esophageal cancer. 4. Diabetes type 2. 5. Hypertension. 6. Hypercholesterolemia. 7. Atrial fibrillation. 8. Hypothyroidism. 9. Dysphagia. 10. History of prostate cancer. 11. Sepsis=Enterococcus (VRE) TREATMENT: 1. Pneumonia/respiratory failure. ESBL E. Coli A Pulmonary consultation has been obtained with Dr. Jackie Kaiser. An Infectious Disease consultation has been obtained with Dr. Sy. We will follow recommendations of Infectious Disease and Pulmonary. COVID 19=neg X2 2. Esophageal cancer. 3. Diabetes type 2. A NovoLog sliding scale has been instituted. 4. Hypertension. The patient is currently hypotensive secondary to sepsis. 5. Hypercholesterolemia. Continue atorvastatin as above. 6. Atrial fibrillation. Continue amiodarone as above. 7. Hypothyroidism. Continue levothyroxine as above. 8. Dysphagia, status post PEG placement. 9. History of prostate cancer. 10. ABX = ertapenem. Gallito Turcios MD Nov 17, 2019 14:41
--- NOTE | 2019-11-17 14:44 | NUR ---
NURSE NOTES: Seen by Dr. Slade and assessed patient. No new order at this time.
--- NOTE | 2019-11-17 15:51 | Cardiology Progress Note ---
Assessment/Plan Assessment/Plan 1. Paroxysmal episodes of atrial fibrillation. 2. Respiratory failure. 3. Influenza A positive. covid negX1 4. Malignant neoplasm of the larynx. 5. History of hypertension. 6. History of hyperlipidemia. 7. History of hypothyroidism. 8. Respiratory failure on a mechanical ventilator. 9. Diabetes mellitus type 2. 10. Coagulopathy. 11. Abnormal liver function tests. 12. Hypotension likely from sepsis and shock 13. VRE bacteremia 14. Hypotension resolved influenza positive covid neg bp iseems more stavle off pressor anemic but stable wbc stable final echo noted tele reviewed sinus no afib documented wean when feasible afebril Subjective ROS Limited/Unobtainable: Yes Subjective on vent per rn mod secretion still is awake no diarrhea no vomiting but has a rectal tube sat are fien no further bp drops Objective Last 24 Hour Vital Signs Date Time Temp Pulse Resp B/P (MAP) Pulse Ox O2 Delivery O2 Flow Rate FiO2 11/17/19 15:00 67 16 106/61 (76) 97 11/17/19 14:00 69 16 112/77 (89) 100 11/17/19 13:20 73 16 40 11/17/19 13:00 74 16 115/70 (85) 98 11/17/19 12:00 77 11/17/19 12:00 75 16 117/67 (84) 99 11/17/19 12:00 98.0 77 18 117/67 (84) 98 11/17/19 12:00 Mechanical Ventilator 11/17/19 12:00 40 11/17/19 11:30 73 16 40 11/17/19 11:00 73 16 113/66 (82) 99 11/17/19 10:00 76 21 115/67 (83) 98 11/17/19 09:30 59 16 40 11/17/19 09:00 68 17 115/64 (81) 99 11/17/19 08:00 97.8 69 16 126/83 (97) 99 11/17/19 08:00 80 11/17/19 08:00 40 11/17/19 08:00 Mechanical Ventilator 11/17/19 07:22 70 16 40 11/17/19 07:00 70 16 129/68 (88) 100 11/17/19 06:30 69 16 11/17/19 06:00 98.6 73 16 129/68 (88) 99 11/17/19 05:06 77 19 40 11/17/19 05:00 76 16 110/72 (85) 98 11/17/19 04:00 Mechanical Ventilator 11/17/19 04:00 99.0 71 16 108/80 (89) 100 11/17/19 04:00 67 11/17/19 04:00 30 11/17/19 03:14 79 16 40 11/17/19 03:00 75 16 115/70 (85) 98 11/17/19 02:00 76 16 117/62 (80) 98 11/17/19 01:37 73 16 40 11/17/19 01:00 75 16 111/63 (79) 98 11/17/19 00:00 98.7 70 15 111/61 (78) 99 11/17/19 00:00 30 11/17/19 00:00 Mechanical Ventilator 11/17/19 00:00 70 11/16/19 23:15 72 16 40 11/16/19 23:00 70 16 118/62 (80) 100 11/16/19 22:00 62 16 99/66 (77) 100 11/16/19 22:00 111/63 11/16/19 21:05 75 16 40 11/16/19 21:00 75 17 109/72 (84) 95 11/16/19 20:00 77 11/16/19 20:00 30 11/16/19 20:00 Mechanical Ventilator 11/16/19 20:00 99.0 77 16 124/64 (84) 100 11/16/19 19:10 76 21 40 11/16/19 19:00 78 16 128/62 (84) 100 11/16/19 18:00 67 16 116/61 (79) 100 11/16/19 17:22 78 18 40 11/16/19 17:00 69 16 107/57 (74) 99 11/16/19 16:00 30 11/16/19 16:00 74 16 103/58 (73) 100 11/16/19 16:00 Mechanical Ventilator 11/16/19 16:00 73 11/16/19 16:00 97.8 74 16 103/58 (73) 100 General Appearance: no apparent distress, alert, on vent, patient on isolation , isolation precautions Extremities: no swelling Intake and Output 11/16/19 11/17/19 19:00 07:00 Intake Total 805 ml 710 ml Output Total 540 ml 660 ml Balance 265 ml 50 ml Intake Free Water 150 ml 100 ml IV Total 55 ml Tube Feeding 600 ml 550 ml Other 60 ml Output Urine Total 540 ml 460 ml Stool Total 200 ml Laboratory Tests Test 11/17/19 05:15 11/17/19 09:25 White Blood Count 8.5 K/UL (4.8-10.8) Red Blood Count 3.32 M/UL (4.70-6.10) L Hemoglobin 9.3 G/DL (14.2-18.0) L Hematocrit 28.4 % (42.0-52.0) L Mean Corpuscular Volume 85 FL (80-99) Mean Corpuscular Hemoglobin 28.1 PG (27.0-31.0) Mean Corpuscular Hemoglobin Concent 32.9 G/DL (32.0-36.0) Red Cell Distribution Width 17.4 % (11.6-14.8) H Platelet Count 265 K/UL (150-450) Mean Platelet Volume 5.0 FL (6.5-10.1) L Neutrophils (%) (Auto) 56.7 % (45.0-75.0) Lymphocytes (%) (Auto) 25.5 % (20.0-45.0) Monocytes (%) (Auto) 12.8 % (1.0-10.0) H Eosinophils (%) (Auto) 3.6 % (0.0-3.0) H Basophils (%) (Auto) 1.4 % (0.0-2.0) Sodium Level 142 MMOL/L (136-145) Potassium Level 4.4 MMOL/L (3.5-5.1) Chloride Level 109 MMOL/L (98-107) H Carbon Dioxide Level 23 MMOL/L (21-32) Anion Gap 10 mmol/L (5-15) Blood Urea Nitrogen 15 mg/dL (7-18) Creatinine 1.0 MG/DL (0.55-1.30) Estimat Glomerular Filtration Rate > 60 mL/min (>60) Glucose Level 83 MG/DL (74-106) Calcium Level 8.1 MG/DL (8.5-10.1) L Arterial Blood pH 7.487 (7.350-7.450) Arterial Blood Partial Pressure CO2 27.9 mmHg (35.0-45.0) L Arterial Blood Partial Pressure O2 97.7 mmHg (75.0-100.0) Arterial Blood HCO3 20.6 mmol/L (22.0-26.0) L Arterial Blood Oxygen Saturation 97.4 % (95-100) Arterial Blood Base Excess -2.1 (-2-2) L Ty Test Positive Carlos Slade MD Nov 17, 2019 15:51
--- NOTE | 2019-11-17 16:33 | NUR ---
NURSE NOTES: Bed bath given.
--- NOTE | 2019-11-17 18:13 | NUR ---
NURSE NOTES: Repositioned patient and provided oral care.
--- NOTE | 2019-11-17 19:33 | NUR ---
HAND-OFF: Report given to VENKAT Gtz. Endorsed plan of care.
--- NOTE | 2019-11-17 20:00 | NUR ---
NURSE NOTES: received report from leti rn awake but confuse and restless on marcy soft wrest restraints non complaint reposition and suction tolerating tube feeding no residual
--- NOTE | 2019-11-17 22:00 | NUR ---
NURSE NOTES: condition un change
[2019-11-18] VITALS (27 sets, daily range): BP systolic 80–132; BP diastolic 54–84
--- NOTE | 2019-11-18 | NUR ---
NURSE NOTES: reposition and suction
--- NOTE | 2019-11-18 02:00 | NUR ---
NURSE NOTES: asleep at interval confuse and restless
--- NOTE | 2019-11-18 04:00 | NUR ---
NURSE NOTES: complete bed bath oral care done reposition and suction
[2019-11-18 05:13] LABS: BASOPHILS % (AUTO) 1.4 % (0.0-2.0); EOSINOPHILS % (AUTO) 3.7 % (0.0-3.0); HEMATOCRIT 29.7 % (42.0-52.0); HEMOGLOBIN 10.1 G/DL (14.2-18.0); LYMPHOCYTES % (AUTO) 29.9 % (20.0-45.0); MEAN CORPUSCULAR VOLUME 85 FL (80-99); MONOCYTES % (AUTO) 12.4 % (1.0-10.0); NEUTROPHILS % (AUTO) 52.7 % (45.0-75.0); PLATELET COUNT 298 K/UL (150-450); RED BLOOD COUNT 3.47 M/UL (4.70-6.10); RED CELL DISTRIBUTION WIDTH 17.4 % (11.6-14.8); WHITE BLOOD COUNT 10.4 K/UL (4.8-10.8)
[2019-11-18 05:28] LABS: ANION GAP 10 mmol/L (5-15); BLOOD UREA NITROGEN 19 mg/dL (7-18); CALCIUM 8.3 MG/DL (8.5-10.1); CARBON DIOXIDE 23 MMOL/L (21-32); CHLORIDE 108 MMOL/L (98-107); POTASSIUM 4.7 MMOL/L (3.5-5.1); SODIUM 141 MMOL/L (136-145)
--- NOTE | 2019-11-18 07:17 | NUR ---
NURSE NOTES: Received report from VENKAT Gtz. Patient is awake and responsive to verbal. ETT 7.5/21cm at lip line with vent setting AC 16, VT 600 and FiO2 40%. Gtube intact and running with glucerna 1.5 @ 50ml/hr. Rectal tube intact and draining with dark brown color stool. Right Hand 20G IV intact and clean with TKO. Kept dry, clean, comfortable and HOB>30. Will continue plan of care.
--- NOTE | 2019-11-18 07:34 | NUR ---
HAND-OFF: Report given to leti gauthier using sbar.
[2019-11-18] MEDS: Pantoprazole Inj IVP SCH (08:13)
[2019-11-18] MEDS: Amiodarone 200mg tab PEG SCH (08:13)
[2019-11-18] MEDS: Heparin 5000 units/ml inj SUBQ SCH ×2 (08:15→21:03)
--- NOTE | 2019-11-18 10:23 | NUR ---
RESPIRATORY NOTES: Attempted spontaneous breathing trail on patient however he went apneic. Attempted 3 more times, on spontaneous breathing, while coaching however the patient put in no spontaneous effort. Placed back onto previous acvc settings.
--- NOTE | 2019-11-18 10:35 | NUR ---
NURSE NOTES: Influenza swab done and sent to lab.
--- NOTE | 2019-11-18 10:42 | Infectious Diseases Prog Note ---
Assessment/Plan Assessment/Plan A: Low grade fever x1, SP Leukocytosis, neutrophil predominant, recurrent; improving -11/10 u/a neg; ucx Neg Bcx neg -11/08 Cdiff neg Septic shock, sp off of pressors PNA- persistent infiltrates, hypoxia- COVID19 neg x2 Influenza A, sp rx SARS CoV PCR negative x2 (10/29, 11/10) 11/16 CXR: Bilateral interstitial and airspace opacities appear mildly worsened compared to the prior exam, with more confluent opacification seen in the right upper lobe and left lung base. 11/11 CXR: Bilateral diffuse interstitial and airspace infiltrates are unchanged.Stable satisfactory position of endotracheal tube and right jugular port catheter.The heart size is normal. 11/10 sp cx C. tropicalis, ESBL E.coli (S Zosyn, Ertapenem) 11/09 CXR: Persistent basilar predominant interstitial and airspace infiltrates. Edema and infection are again both possibilities. Also consider superimposed malignancy, particularly given infusion ports. CXR: Bilateral mostly nodular mostly interstitial disease, as described. This could represent interstitial pneumonia or edema, among many other possibilities. However, given the nodular appearance and the presence of an infusion catheter the possibility of nodular metastatic disease should also be considered. Unlikely UTI UA 10-15 WBC UCx: NG VRE bacteremia 10/29 BCx: VRE; 10/31 Bcx neg 10/29 TTE: focal AV sclerosis with adequate cusp excursion. thickened MV leaflets with normal excursion. mild mitral annulus and aortic root calcification. normal TV. no MR. mild TR. PV not visualized. QTc 552 Afib COPD Hypothyroid Dyslipidemia HTN DM Anemia CVA G tube, h/o abscess complication head and neck cancer Plan: - Continue Ertapenem #4 (Abx #5/7) for ESBL PNA 11/15/19 SP Linezolid #14/ for VRE bacteremia and Zosyn #2 11/03 Tamiflu #5 11/03 DC amikacin and ertapenem #4 / SP Vanc #3 monitor temp and CBC monitor resp status COVID19 neg x2, Influenza A upon admission- repeat influenza swab to determine isolation status f/u bcx TTE without severe valve insufficiency and bacteremia low grade. recommend repeating bcx at end of therapy to ensure resolution of bacteremia. If has recurrent fevers, will recommend ILENE. WENDI RN Thank you for this consult. [facility] Will continue to follow the patient with you. Subjective Allergies: Coded Allergies: No Known Allergies (Unverified , 10/30/19) Subjective afebrile remains intubated; on 40% Fio2 Bcx neg Objective Vital Signs Last 24 Hour Vital Signs Date Time Temp Pulse Resp B/P (MAP) Pulse Ox O2 Delivery O2 Flow Rate FiO2 11/18/19 09:00 70 16 92/62 (72) 100 11/18/19 08:00 Mechanical Ventilator 11/18/19 08:00 98.4 69 16 105/63 (77) 98 11/18/19 08:00 40 11/18/19 07:08 66 16 40 11/18/19 07:00 70 16 91/59 (70) 98 11/18/19 06:30 75 16 11/18/19 06:15 74 16 121/62 (81) 100 11/18/19 06:00 69 16 87/61 (70) 100 11/18/19 05:00 88 16 105/83 (90) 90 11/18/19 04:00 40 11/18/19 04:00 72 11/18/19 04:00 Mechanical Ventilator 11/18/19 04:00 98.6 94 17 131/71 (91) 99 11/18/19 03:30 82 17 40 11/18/19 03:00 78 16 105/67 (80) 96 11/18/19 02:00 74 16 111/70 (84) 98 11/18/19 01:00 77 17 132/68 (89) 98 11/18/19 00:00 72 11/18/19 00:00 75 17 115/84 (94) 99 11/18/19 00:00 40 11/18/19 00:00 Mechanical Ventilator 11/17/19 23:30 69 16 40 11/17/19 23:00 98.5 73 15 108/71 (83) 100 11/17/19 22:00 74 16 106/82 (90) 99 11/17/19 22:00 136/84 11/17/19 21:00 Mechanical Ventilator 11/17/19 21:00 69 16 118/70 (86) 100 11/17/19 20:00 40 11/17/19 20:00 71 11/17/19 20:00 98.0 72 17 117/63 (81) 99 4/19/20 19:30 67 16 40 11/17/19 19:00 76 16 112/66 (81) 100 11/17/19 18:00 77 17 108/65 (79) 98 11/17/19 17:00 73 16 127/76 (93) 99 11/17/19 16:04 76 17 40 11/17/19 16:00 Mechanical Ventilator 11/17/19 16:00 97.8 74 17 127/77 (94) 99 11/17/19 16:00 40 11/17/19 16:00 74 11/17/19 15:00 67 16 106/61 (76) 97 11/17/19 14:00 69 16 112/77 (89) 100 11/17/19 13:20 73 16 40 11/17/19 13:00 74 16 115/70 (85) 98 11/17/19 12:00 77 11/17/19 12:00 75 16 117/67 (84) 99 11/17/19 12:00 98.0 77 18 117/67 (84) 98 11/17/19 12:00 Mechanical Ventilator 11/17/19 12:00 40 11/17/19 11:30 73 16 40 11/17/19 11:00 73 16 113/66 (82) 99 Height (Feet): 6 Height (Inches): 1.00 Weight (Pounds): 152 Objective Gen: NAD. intubated. HEENT: ETT. CV: S1+S2. no rubs or gallop Resp: coarse. regular. equal chest rise. no wheezes Abd: soft. G tube. nondistended. Skin: warm. dry. Neuro: awake. follows simple commands. calm Laboratory Tests Test 11/18/19 03:40 White Blood Count 10.4 K/UL (4.8-10.8) Red Blood Count 3.47 M/UL (4.70-6.10) L Hemoglobin 10.1 G/DL (14.2-18.0) L Hematocrit 29.7 % (42.0-52.0) L Mean Corpuscular Volume 85 FL (80-99) Mean Corpuscular Hemoglobin 29.0 PG (27.0-31.0) Mean Corpuscular Hemoglobin Concent 33.9 G/DL (32.0-36.0) Red Cell Distribution Width 17.4 % (11.6-14.8) H Platelet Count 298 K/UL (150-450) Mean Platelet Volume 4.8 FL (6.5-10.1) L Neutrophils (%) (Auto) 52.7 % (45.0-75.0) Lymphocytes (%) (Auto) 29.9 % (20.0-45.0) Monocytes (%) (Auto) 12.4 % (1.0-10.0) H Eosinophils (%) (Auto) 3.7 % (0.0-3.0) H Basophils (%) (Auto) 1.4 % (0.0-2.0) Sodium Level 141 MMOL/L (136-145) Potassium Level 4.7 MMOL/L (3.5-5.1) Chloride Level 108 MMOL/L (98-107) H Carbon Dioxide Level 23 MMOL/L (21-32) Anion Gap 10 mmol/L (5-15) Blood Urea Nitrogen 19 mg/dL (7-18) H Creatinine 1.0 MG/DL (0.55-1.30) Estimat Glomerular Filtration Rate > 60 mL/min (>60) Glucose Level 98 MG/DL (74-106) Calcium Level 8.3 MG/DL (8.5-10.1) L Current Medications Medications (Trade) Dose Ordered Sig/Tasha Route PRN Reason Start Time Stop Time Status Last Admin Dose Admin Acetaminophen (Tylenol) 650 mg Q4H PRN ORAL fever 10/30/19 11:15 11/29/19 11:14 11/10/19 19:43 Albuterol/ Ipratropium (Albuterol/ Ipratropium) 3 ml Q4HRT PRN HHN sob 11/16/19 09:00 11/21/19 08:59 Amiodarone HCl (Cordarone) 100 mg DAILY PEG 11/04/19 09:00 01/29/20 08:59 11/18/19 08:13 Ertapenem 1 gm/ Sodium Chloride 55 ml @ 110 mls/hr Q24H IVPB 11/15/19 14:00 11/20/19 13:59 11/17/19 13:23 Heparin Sodium (Porcine) (Heparin 5000 units/ml) 5,000 units EVERY 12 HOURS SUBQ 11/02/19 09:00 12/17/19 08:59 11/18/19 08:15 Levothyroxine Sodium (Synthroid) 50 mcg DAILY@0630 GT 10/31/19 06:30 11/30/19 06:29 11/18/19 06:18 Lorazepam (Ativan 2mg/ml 1ml) 2 mg Q4H PRN IV For Anxiety 11/14/19 21:15 11/21/19 21:14 11/16/19 20:28 Norepinephrine Bitartrate 4 mg/ Dextrose 254 ml @ 0 mls/hr Q24H IV 10/30/19 22:00 11/29/19 21:59 11/01/19 23:54 Ondansetron HCl (Zofran) 4 mg Q6H PRN IVP Nausea & Vomiting 10/30/19 11:15 11/29/19 11:14 11/12/19 23:52 Pantoprazole (Protonix) 40 mg DAILY IVP 10/31/19 09:00 11/30/19 08:59 11/18/19 08:13 Polyethylene Glycol (Miralax) 17 gm DAILYPRN PRN ORAL Constipation 10/30/19 11:15 11/29/19 11:14 Quetiapine Fumarate (SEROqueL) 100 mg Q12HR GT 10/30/19 23:00 12/14/19 22:59 11/18/19 08:13 Daphne Sy M.D. Nov 18, 2019 10:42
--- NOTE | 2019-11-18 11:06 | Diagnostic Imaging Report ---
Indication: Shortness of breath Technique: One view of the chest Comparison: 11/17/2019 Findings: Bilateral reticular interstitial disease persists, unchanged. Irregular left basilar opacity is unchanged. More focal parenchymal opacities in the right midlung are unchanged. Stable satisfactory position an endotracheal tube. Right chest dual-lumen port catheter again demonstrated. Heart size is normal. No effusions. Impression: Unchanged, over one day, findings as above.
--- NOTE | 2019-11-18 11:40 | NUR ---
NURSE NOTES: Seen by Dr. Kaiser and assessed patient.
--- NOTE | 2019-11-18 11:48 | Pulmonolgy Critical Care Note ---
Critical Care - Asmt/Plan Problems: (1) Acute respiratory failure (2) Influenza A (3) Enterococcal bacteremia (4) Nosocomial pneumonia (5) COPD (chronic obstructive pulmonary disease) (6) Atrial fibrillation (7) Severe anemia (8) Hypothyroidism (9) Psychosis Respiratory: monitor respiratory rate, adjust FIO2, CXR Cardiac: continue pressors, continue to monitor HR/BP Renal: F/U I&O Infectious Disease: check cultures Gastrointestinal: continue feedings/current rate Endocrine: monitor blood sugar, check HgA1C Hematologic: monitor H/H Affect: PRN ativan Prophylaxis: Protonix Time Spent (Minutes): 40 Notes 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, 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, 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 Discussed with: nurses, consultants, 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 center - Objective Last 24 Hour Vital Signs Date Time Temp Pulse Resp B/P (MAP) Pulse Ox O2 Delivery O2 Flow Rate FiO2 11/18/19 10:00 69 16 91/57 (68) 99 11/18/19 09:00 70 16 92/62 (72) 100 11/18/19 08:00 Mechanical Ventilator 11/18/19 08:00 98.4 69 16 105/63 (77) 98 11/18/19 08:00 40 11/18/19 07:08 66 16 40 11/18/19 07:00 70 16 91/59 (70) 98 11/18/19 06:30 75 16 11/18/19 06:15 74 16 121/62 (81) 100 11/18/19 06:00 69 16 87/61 (70) 100 11/18/19 05:00 88 16 105/83 (90) 90 11/18/19 04:00 40 11/18/19 04:00 72 11/18/19 04:00 Mechanical Ventilator 11/18/19 04:00 98.6 94 17 131/71 (91) 99 11/18/19 03:30 82 17 40 11/18/19 03:00 78 16 105/67 (80) 96 11/18/19 02:00 74 16 111/70 (84) 98 11/18/19 01:00 77 17 132/68 (89) 98 11/18/19 00:00 72 11/18/19 00:00 75 17 115/84 (94) 99 11/18/19 00:00 40 11/18/19 00:00 Mechanical Ventilator 11/17/19 23:30 69 16 40 11/17/19 23:00 98.5 73 15 108/71 (83) 100 11/17/19 22:00 74 16 106/82 (90) 99 11/17/19 22:00 136/84 11/17/19 21:00 Mechanical Ventilator 11/17/19 21:00 69 16 118/70 (86) 100 11/17/19 20:00 40 11/17/19 20:00 71 11/17/19 20:00 98.0 72 17 117/63 (81) 99 11/17/19 19:30 67 16 40 11/17/19 19:00 76 16 112/66 (81) 100 11/17/19 18:00 77 17 108/65 (79) 98 11/17/19 17:00 73 16 127/76 (93) 99 11/17/19 16:04 76 17 40 11/17/19 16:00 Mechanical Ventilator 11/17/19 16:00 97.8 74 17 127/77 (94) 99 11/17/19 16:00 40 11/17/19 16:00 74 11/17/19 15:00 67 16 106/61 (76) 97 11/17/19 14:00 69 16 112/77 (89) 100 11/17/19 13:20 73 16 40 11/17/19 13:00 74 16 115/70 (85) 98 11/17/19 12:00 77 11/17/19 12:00 75 16 117/67 (84) 99 11/17/19 12:00 98.0 77 18 117/67 (84) 98 11/17/19 12:00 Mechanical Ventilator 11/17/19 12:00 40 Status: sedated Condition: critical HEENT: atraumatic, normocephalic Lungs: clear Heart: HR/BP stable Abdomen: soft, active bowel sounds Extremities: no C/C/E, edema Decubiti: location Micro: Microbiology Date/Time Source Procedure Growth Status 11/18/19 10:25 Nasal Nares - Final Complete 11/18/19 10:25 Nasal Nares - Final Complete Critical Care - Subjective ROS Limited/Unobtainable: Yes Interval Events: failed weaning trial Condition: critical FI02: 40 Vent Support Breath Rate: 16 Vent Support Mode: AC Vent Tidal Volume: 600 Sputum Amount: Moderate PEEP: 0.0 PIP: 33 Tube Feeding Amount: 50 I&O: Intake and Output 11/17/19 11/18/19 19:00 07:00 Intake Total 860 ml 655 ml Output Total 950 ml 890 ml Balance -90 ml -235 ml Intake Free Water 150 ml 100 ml IV Total 55 ml Tube Feeding 655 ml 555 ml Output Urine Total 950 ml 740 ml Stool Total 150 ml CXR: Bilateral reticular interstitial disease persists, unchanged. Irregular left basilar opacity is unchanged. More focal parenchymal opacities in the right midlung are unchanged. ET-Tube: 7.5 ET Position: 21 Labs: Laboratory Tests Test 11/18/19 03:40 White Blood Count 10.4 K/UL (4.8-10.8) Red Blood Count 3.47 M/UL (4.70-6.10) L Hemoglobin 10.1 G/DL (14.2-18.0) L Hematocrit 29.7 % (42.0-52.0) L Mean Corpuscular Volume 85 FL (80-99) Mean Corpuscular Hemoglobin 29.0 PG (27.0-31.0) Mean Corpuscular Hemoglobin Concent 33.9 G/DL (32.0-36.0) Red Cell Distribution Width 17.4 % (11.6-14.8) H Platelet Count 298 K/UL (150-450) Mean Platelet Volume 4.8 FL (6.5-10.1) L Neutrophils (%) (Auto) 52.7 % (45.0-75.0) Lymphocytes (%) (Auto) 29.9 % (20.0-45.0) Monocytes (%) (Auto) 12.4 % (1.0-10.0) H Eosinophils (%) (Auto) 3.7 % (0.0-3.0) H Basophils (%) (Auto) 1.4 % (0.0-2.0) Sodium Level 141 MMOL/L (136-145) Potassium Level 4.7 MMOL/L (3.5-5.1) Chloride Level 108 MMOL/L (98-107) H Carbon Dioxide Level 23 MMOL/L (21-32) Anion Gap 10 mmol/L (5-15) Blood Urea Nitrogen 19 mg/dL (7-18) H Creatinine 1.0 MG/DL (0.55-1.30) Estimat Glomerular Filtration Rate > 60 mL/min (>60) Glucose Level 98 MG/DL (74-106) Calcium Level 8.3 MG/DL (8.5-10.1) L Jackie Kaiser MD Nov 18, 2019 11:48
[2019-11-18] MEDS: Ertapenem 1 GM in NS 55 ML IVPB SCH (13:17)
--- NOTE | 2019-11-18 13:31 | Internal Med Progress Note ---
Subjective Date of Service: Nov 18, 2019 Physician Name Turcios,Gallito Attending Physician Danny Stark MD Current Medications Medications (Trade) Dose Ordered Sig/Tasha Route PRN Reason Start Time Stop Time Status Last Admin Dose Admin Acetaminophen (Tylenol) 650 mg Q4H PRN ORAL fever 10/30/19 11:15 11/29/19 11:14 11/10/19 19:43 Albuterol/ Ipratropium (Albuterol/ Ipratropium) 3 ml Q4HRT PRN HHN sob 11/16/19 09:00 11/21/19 08:59 Amiodarone HCl (Cordarone) 100 mg DAILY PEG 11/04/19 09:00 01/29/20 08:59 11/18/19 08:13 Ertapenem 1 gm/ Sodium Chloride 55 ml @ 110 mls/hr Q24H IVPB 11/15/19 14:00 11/20/19 13:59 11/18/19 13:17 Heparin Sodium (Porcine) (Heparin 5000 units/ml) 5,000 units EVERY 12 HOURS SUBQ 11/02/19 09:00 12/17/19 08:59 11/18/19 08:15 Levothyroxine Sodium (Synthroid) 50 mcg DAILY@0630 GT 10/31/19 06:30 11/30/19 06:29 11/18/19 06:18 Lorazepam (Ativan 2mg/ml 1ml) 2 mg Q4H PRN IV For Anxiety 11/14/19 21:15 11/21/19 21:14 11/16/19 20:28 Norepinephrine Bitartrate 4 mg/ Dextrose 254 ml @ 0 mls/hr Q24H IV 10/30/19 22:00 11/29/19 21:59 11/01/19 23:54 Ondansetron HCl (Zofran) 4 mg Q6H PRN IVP Nausea & Vomiting 10/30/19 11:15 11/29/19 11:14 11/12/19 23:52 Pantoprazole (Protonix) 40 mg DAILY IVP 10/31/19 09:00 11/30/19 08:59 11/18/19 08:13 Polyethylene Glycol (Miralax) 17 gm DAILYPRN PRN ORAL Constipation 10/30/19 11:15 11/29/19 11:14 Quetiapine Fumarate (SEROqueL) 100 mg Q12HR GT 10/30/19 23:00 12/14/19 22:59 11/18/19 08:13 Allergies: Coded Allergies: No Known Allergies (Unverified , 10/30/19) ROS Limited/Unobtainable: Yes Subjective 73 YO M with history of esophageal cancer admitted with respiratory failure. Cover for Int Elijah-Dr Stark. ICU. Intubted and sedated. Objective Last Vital Signs Date Time Temp Pulse Resp B/P (MAP) Pulse Ox O2 Delivery O2 Flow Rate FiO2 11/18/19 12:00 Mechanical Ventilator 11/18/19 12:00 40 11/18/19 11:07 82 16 11/18/19 10:00 91/57 (68) 99 11/18/19 08:00 98.4 Laboratory Tests Test 11/18/19 03:40 11/18/19 12:38 White Blood Count 10.4 K/UL (4.8-10.8) Red Blood Count 3.47 M/UL (4.70-6.10) L Hemoglobin 10.1 G/DL (14.2-18.0) L Hematocrit 29.7 % (42.0-52.0) L Mean Corpuscular Volume 85 FL (80-99) Mean Corpuscular Hemoglobin 29.0 PG (27.0-31.0) Mean Corpuscular Hemoglobin Concent 33.9 G/DL (32.0-36.0) Red Cell Distribution Width 17.4 % (11.6-14.8) H Platelet Count 298 K/UL (150-450) Mean Platelet Volume 4.8 FL (6.5-10.1) L Neutrophils (%) (Auto) 52.7 % (45.0-75.0) Lymphocytes (%) (Auto) 29.9 % (20.0-45.0) Monocytes (%) (Auto) 12.4 % (1.0-10.0) H Eosinophils (%) (Auto) 3.7 % (0.0-3.0) H Basophils (%) (Auto) 1.4 % (0.0-2.0) Sodium Level 141 MMOL/L (136-145) Potassium Level 4.7 MMOL/L (3.5-5.1) Chloride Level 108 MMOL/L (98-107) H Carbon Dioxide Level 23 MMOL/L (21-32) Anion Gap 10 mmol/L (5-15) Blood Urea Nitrogen 19 mg/dL (7-18) H Creatinine 1.0 MG/DL (0.55-1.30) Estimat Glomerular Filtration Rate > 60 mL/min (>60) Glucose Level 98 MG/DL (74-106) Calcium Level 8.3 MG/DL (8.5-10.1) L Arterial Blood pH 7.523 (7.350-7.450) Arterial Blood Partial Pressure CO2 26.5 mmHg (35.0-45.0) L Arterial Blood Partial Pressure O2 87.9 mmHg (75.0-100.0) Arterial Blood HCO3 21.3 mmol/L (22.0-26.0) L Arterial Blood Oxygen Saturation 96.6 % (95-100) Arterial Blood Base Excess -0.6 (-2-2) Ty Test Positive Microbiology Date/Time Source Procedure Growth Status 11/18/19 10:25 Nasal Nares - Final Complete 11/18/19 10:25 Nasal Nares - Final Complete Intake and Output 11/17/19 11/18/19 19:00 07:00 Intake Total 860 ml 655 ml Output Total 950 ml 890 ml Balance -90 ml -235 ml Intake Free Water 150 ml 100 ml IV Total 55 ml Tube Feeding 655 ml 555 ml Output Urine Total 950 ml 740 ml Stool Total 150 ml Objective PHYSICAL EXAMINATION: VITAL SIGNS: Temperature 98.1, respirations 25, pulse 92, blood pressure 95/59. GENERAL: The patient is well-developed, well-nourished male, who is intubated and sedated. HEENT: Eyes, pupils are equal and responsive to light and accommodation. Extraocular movements are intact. NECK: Supple without lymphadenopathy. CHEST: Mech vent; Coarse mechanical breath sounds bilaterally without wheezes or rales. CARDIOVASCULAR: Regular rhythm and rate. S1, S2 are normal without murmurs, rubs, or gallops. ABDOMEN: Soft, nontender, and nondistended. Positive bowel sounds. No evidence of hepatosplenomegaly. Currently, no rebound or guarding noted. EXTREMITIES: Negative for clubbing, cyanosis, or edema. RECTAL/GENITAL: Not performed. NEUROLOGICAL: Unable to assess. Assessment/Plan Assessment/Plan ASSESSMENT: This is a 73-year-old male. 1. Respiratory failure. 2. Pneumonia=ESBL E. Coli. 3. Esophageal cancer. 4. Diabetes type 2. 5. Hypertension. 6. Hypercholesterolemia. 7. Atrial fibrillation. 8. Hypothyroidism. 9. Dysphagia. 10. History of prostate cancer. 11. Sepsis=Enterococcus (VRE) TREATMENT: 1. Pneumonia/respiratory failure. ESBL E. Coli A Pulmonary consultation has been obtained with Dr. Jackie Kaiser. An Infectious Disease consultation has been obtained with Dr. Sy. We will follow recommendations of Infectious Disease and Pulmonary. COVID 19=neg X2 2. Esophageal cancer. 3. Diabetes type 2. A NovoLog sliding scale has been instituted. 4. Hypertension. The patient is currently hypotensive secondary to sepsis. 5. Hypercholesterolemia. Continue atorvastatin as above. 6. Atrial fibrillation. Continue amiodarone as above. 7. Hypothyroidism. Continue levothyroxine as above. 8. Dysphagia, status post PEG placement. 9. History of prostate cancer. 10. ABX = ertapenem. Gallito Turcios MD Nov 18, 2019 13:31
--- NOTE | 2019-11-18 14:00 | NUR ---
NURSE NOTES: Repositioned patient.
--- NOTE | 2019-11-18 16:20 | NUR ---
NURSE NOTES: Bed bath given.
--- NOTE | 2019-11-18 17:15 | NUR ---
CASE MANAGEMENT: REVIEW 11/18/19 SI: RESP FAILURE . PNA . INFLUENZA . VRE (+) BACTEREMIA 98.0 68 16 88/58 99% MECH VENT FIO2 40 H/H 10.1/29.7 CA+8.3 CL-108 IS: IV ERTAPENEM Q24HR IV PROTONIX QD SEROQUEL GT BID AMIODARONE PEG QD HEPARIN SQ BID SYNTHROID GT QAM AYANA-HEX 2% TP QD \: ICU STATUS DCP: [facility]: Bilateral reticular interstitial disease persists, Unchanged
--- NOTE | 2019-11-18 17:49 | Cardiology Progress Note ---
Assessment/Plan Assessment/Plan 1. Paroxysmal episodes of atrial fibrillation. 2. Respiratory failure. 3. Influenza A positive. covid negX1 4. Malignant neoplasm of the larynx. 5. History of hypertension. 6. History of hyperlipidemia. 7. History of hypothyroidism. 8. Respiratory failure on a mechanical ventilator. 9. Diabetes mellitus type 2. 10. Coagulopathy. 11. Abnormal liver function tests. 12. Hypotension likely from sepsis and shock 13. VRE bacteremia 14. Hypotension resolved influenza positive covid neg but with sensitivity of 67% and persistent cough i remain concerned bp is lwo agian will give ivf again off pressor anemic but stable wbc stable final echo noted tele reviewed sinus no afib documented failed weanwent apneic per rn afebrile Subjective ROS Limited/Unobtainable: Yes Subjective on vent per rn mod secretion still is awake no diarrhea no vomiting but has a rectal tube sat are fien no further bp drops Objective Last 24 Hour Vital Signs Date Time Temp Pulse Resp B/P (MAP) Pulse Ox O2 Delivery O2 Flow Rate FiO2 11/18/19 16:00 Mechanical Ventilator 11/18/19 16:00 40 11/18/19 15:00 69 12 112/67 (82) 99 11/18/19 14:00 73 14 97/60 (72) 98 11/18/19 13:00 67 16 92/59 (70) 100 11/18/19 12:43 71 16 111/69 (83) 100 11/18/19 12:00 Mechanical Ventilator 11/18/19 12:00 40 11/18/19 12:00 67 11/18/19 12:00 98.0 68 16 88/58 (68) 99 11/18/19 11:44 67 16 104/61 (75) 98 11/18/19 11:07 82 16 40 11/18/19 11:00 68 16 80/56 (64) 96 11/18/19 10:00 69 16 91/57 (68) 99 11/18/19 09:00 70 16 92/62 (72) 100 11/18/19 08:00 60 11/18/19 08:00 Mechanical Ventilator 11/18/19 08:00 98.4 69 16 105/63 (77) 98 11/18/19 08:00 40 11/18/19 07:08 66 16 40 11/18/19 07:00 70 16 91/59 (70) 98 11/18/19 06:30 75 16 11/18/19 06:15 74 16 121/62 (81) 100 11/18/19 06:00 69 16 87/61 (70) 100 11/18/19 05:00 88 16 105/83 (90) 90 11/18/19 04:00 40 11/18/19 04:00 72 11/18/19 04:00 Mechanical Ventilator 11/18/19 04:00 98.6 94 17 131/71 (91) 99 11/18/19 03:30 82 17 40 11/18/19 03:00 78 16 105/67 (80) 96 11/18/19 02:00 74 16 111/70 (84) 98 11/18/19 01:00 77 17 132/68 (89) 98 11/18/19 00:00 72 11/18/19 00:00 75 17 115/84 (94) 99 11/18/19 00:00 40 11/18/19 00:00 Mechanical Ventilator 11/17/19 23:30 69 16 40 11/17/19 23:00 98.5 73 15 108/71 (83) 100 11/17/19 22:00 74 16 106/82 (90) 99 11/17/19 22:00 136/84 11/17/19 21:00 Mechanical Ventilator 11/17/19 21:00 69 16 118/70 (86) 100 11/17/19 20:00 40 11/17/19 20:00 71 11/17/19 20:00 98.0 72 17 117/63 (81) 99 11/17/19 19:30 67 16 40 11/17/19 19:00 76 16 112/66 (81) 100 11/17/19 18:00 77 17 108/65 (79) 98 General Appearance: no apparent distress, alert, on vent, patient on isolation , isolation precautions Extremities: no swelling Intake and Output 11/17/19 11/18/19 18:59 06:59 Intake Total 855 ml 710 ml Output Total 810 ml 1090 ml Balance 45 ml -380 ml Intake Free Water 150 ml 100 ml IV Total 55 ml Tube Feeding 650 ml 610 ml Output Urine Total 810 ml 940 ml Stool Total 150 ml Laboratory Tests Test 11/18/19 03:40 11/18/19 12:38 White Blood Count 10.4 K/UL (4.8-10.8) Red Blood Count 3.47 M/UL (4.70-6.10) L Hemoglobin 10.1 G/DL (14.2-18.0) L Hematocrit 29.7 % (42.0-52.0) L Mean Corpuscular Volume 85 FL (80-99) Mean Corpuscular Hemoglobin 29.0 PG (27.0-31.0) Mean Corpuscular Hemoglobin Concent 33.9 G/DL (32.0-36.0) Red Cell Distribution Width 17.4 % (11.6-14.8) H Platelet Count 298 K/UL (150-450) Mean Platelet Volume 4.8 FL (6.5-10.1) L Neutrophils (%) (Auto) 52.7 % (45.0-75.0) Lymphocytes (%) (Auto) 29.9 % (20.0-45.0) Monocytes (%) (Auto) 12.4 % (1.0-10.0) H Eosinophils (%) (Auto) 3.7 % (0.0-3.0) H Basophils (%) (Auto) 1.4 % (0.0-2.0) Sodium Level 141 MMOL/L (136-145) Potassium Level 4.7 MMOL/L (3.5-5.1) Chloride Level 108 MMOL/L (98-107) H Carbon Dioxide Level 23 MMOL/L (21-32) Anion Gap 10 mmol/L (5-15) Blood Urea Nitrogen 19 mg/dL (7-18) H Creatinine 1.0 MG/DL (0.55-1.30) Estimat Glomerular Filtration Rate > 60 mL/min (>60) Glucose Level 98 MG/DL (74-106) Calcium Level 8.3 MG/DL (8.5-10.1) L Arterial Blood pH 7.523 (7.350-7.450) Arterial Blood Partial Pressure CO2 26.5 mmHg (35.0-45.0) L Arterial Blood Partial Pressure O2 87.9 mmHg (75.0-100.0) Arterial Blood HCO3 21.3 mmol/L (22.0-26.0) L Arterial Blood Oxygen Saturation 96.6 % (95-100) Arterial Blood Base Excess -0.6 (-2-2) Ty Test Positive Microbiology Date/Time Source Procedure Growth Status 11/18/19 10:25 Nasal Nares - Final Complete 11/18/19 10:25 Nasal Nares - Final Complete Carlos Slade MD Nov 18, 2019 17:49
[2019-11-18] MEDS ORDERED: NS 250 ML IVPB ONE (18:00)
--- NOTE | 2019-11-18 18:00 | NUR ---
NURSE NOTES: Seen Dr. Slade and assessed patient.
--- NOTE | 2019-11-18 18:22 | NUR ---
NURSE NOTES: NS 250ml bolus given as ordered.
--- NOTE | 2019-11-18 18:30 | NUR ---
NURSE NOTES: Inserted left forearm 22G IV.
--- NOTE | 2019-11-18 19:06 | NUR ---
HAND-OFF: Report given to VENKAT Gtz. Endorsed plan of care.
--- NOTE | 2019-11-18 20:00 | NUR ---
NURSE NOTES: received report from leti rn pt awake but confuse and restless on marcy soft wrest restraint non complaint reposition and suction tolerating tube feeding no residual reposition and suction
--- NOTE | 2019-11-18 22:00 | NUR ---
NURSE NOTES: reposition and suction no acute resp distress noted
[2019-11-19] VITALS (24 sets, daily range): BP systolic 82–112; BP diastolic 50–75
--- NOTE | 2019-11-19 | NUR ---
NURSE NOTES: reposition and suction tolerating tube feeding no residual
--- NOTE | 2019-11-19 02:00 | NUR ---
NURSE NOTES: reposition and suction sleeping at interval
--- NOTE | 2019-11-19 04:00 | NUR ---
NURSE NOTES:complete bed bath oral care and back care done
[2019-11-19 05:37] LABS: BASOPHILS % (AUTO) 1.5 % (0.0-2.0); EOSINOPHILS % (AUTO) 3.6 % (0.0-3.0); HEMATOCRIT 31.4 % (42.0-52.0); HEMOGLOBIN 10.4 G/DL (14.2-18.0); LYMPHOCYTES % (AUTO) 24.5 % (20.0-45.0); MEAN CORPUSCULAR VOLUME 87 FL (80-99); NEUTROPHILS % (AUTO) 57.4 % (45.0-75.0); PLATELET COUNT 299 K/UL (150-450); RED BLOOD COUNT 3.61 M/UL (4.70-6.10); RED CELL DISTRIBUTION WIDTH 19.2 % (11.6-14.8); WHITE BLOOD COUNT 11.8 K/UL (4.8-10.8)
--- NOTE | 2019-11-19 06:00 | NUR ---
NURSE NOTES: reposition and suction no acute distress noted
[2019-11-19 06:04] LABS: ALANINE AMINOTRANSFERASE 74 U/L (12-78); ALBUMIN 2.4 G/DL (3.4-5.0); ALBUMIN/GLOBULIN RATIO 0.5 (1.0-2.7); ALKALINE PHOSPHATASE 153 U/L (46-116); ANION GAP 13 mmol/L (5-15); ASPARTATE AMINO TRANSFERASE 57 U/L (15-37); BILIRUBIN,TOTAL 0.1 MG/DL (0.2-1.0); BLOOD UREA NITROGEN 21 mg/dL (7-18); CALCIUM 8.3 MG/DL (8.5-10.1); CARBON DIOXIDE 22 MMOL/L (21-32); CHLORIDE 109 MMOL/L (98-107); CREATININE 1.1 MG/DL (0.55-1.30); POTASSIUM 4.7 MMOL/L (3.5-5.1); SODIUM 143 MMOL/L (136-145)
--- NOTE | 2019-11-19 07:05 | NUR ---
HAND-OFF: Report given to .leti gauthier using sbar
--- NOTE | 2019-11-19 07:10 | NUR ---
NURSE NOTES: Received report from VENKAT Gtz. Patient is awake and responsive to verbal, open his eyes. ETT 7.5/21cm at lip line with vent setting AC 16, VT 600, FiO2 40% and no peep. Gtube intact, clean and running with glucerna 1.5 @ 50ml/hr. Rectal tube intact and draining with brown color liquid stool in tube.. Right hand IV 20G intact with TKO and left forearm 22G IV intact and patent. Bilateral soft wrist band restraints on. Both hands are warm to touch. Kept dry, clean, comfortable and HOB>30. Afebrile. Will continue plan of care.
--- NOTE | 2019-11-19 07:52 | NUR ---
RD ASSESSMENT & RECOMMENDATIONS SEE CARE ACTIVITY FOR COMPLETE ASSESSMENT DAILY ESTIMATED NEEDS: Needs based on CRITICAL CARE/ 66kg 22-28 kcals/kg 8063-4793 total kcals 1.2-2 g protein/kg 79-132 g total protein 25-30 mL/kg 0201-0532 total fluid mLs NUTRITION DIAGNOSIS: Swallowing difficulty R/T dysphagia as evidenced by PEG dep, s/p oral intubation, pressor support now held. CURRENT TF: Glucerna 1.5 @ 50 ml/hr x 22 hrs ( on Synthroid QD) ENTERAL NUTRITION RECOMMENDATIONS: Glucerna 1.5 @ 50ml/hr x 22 hrs (hold 1 hr before and after Synthroid) to provide 1100ml, 1650kcal, 91g prot, 835ml free water * Maintain current TF as tolerated to meet 100% est kcal and pro needs. * HOB over 30 degrees/ water flush per MD * Hold 1 hr before and after Synthroid med. ADDITIONAL RECOMMENDATIONS: * Per SNF: HT=66" II=464# (as of 10/18) -> rec calibrated bedscale wt w/ added P200 mattress as able * Consider bedside BG testing: h/o DM -> Monitor need for NISS- good BG control at this time * Check lytes daily, replete as needed .
[2019-11-19] MEDS: Amiodarone 200mg tab PEG SCH (08:16)
[2019-11-19] MEDS: Pantoprazole Inj IVP SCH (08:16)
[2019-11-19] MEDS: Heparin 5000 units/ml inj SUBQ SCH ×2 (08:18→20:37)
--- NOTE | 2019-11-19 09:00 | NUR ---
NURSE NOTES: All due meds given as ordered.
--- NOTE | 2019-11-19 09:47 | NUR ---
RESPIRATORY NOTES PT placed on spontaneous breathing trial - PS8, at 0920. At 0947, apnea alarm was activated. PT then placed back on previous vent settings. VENKAT springer. Will continue to monitor PT.
--- NOTE | 2019-11-19 10:02 | NUR ---
NURSE NOTES: Repositioned patient. Provided oral and trach care.
--- NOTE | 2019-11-19 10:12 | NUR ---
RADIOLOGY DEPT., CHEST X-RAY DONE.-P.DYE
--- NOTE | 2019-11-19 10:18 | Infectious Diseases Prog Note ---
Assessment/Plan Assessment/Plan A: Low grade fever x1, SP Leukocytosis, neutrophil predominant, recurrent; improving -11/10 u/a neg; ucx Neg Bcx neg -11/08 Cdiff neg Septic shock, sp off of pressors PNA- persistent infiltrates, hypoxia- COVID19 neg x2 Influenza A, sp rx SARS CoV PCR negative x2 (10/29, 11/10) 11/16 CXR: Bilateral interstitial and airspace opacities appear mildly worsened compared to the prior exam, with more confluent opacification seen in the right upper lobe and left lung base. 11/11 CXR: Bilateral diffuse interstitial and airspace infiltrates are unchanged.Stable satisfactory position of endotracheal tube and right jugular port catheter.The heart size is normal. 11/10 sp cx C. tropicalis, ESBL E.coli (S Zosyn, Ertapenem) 11/09 CXR: Persistent basilar predominant interstitial and airspace infiltrates. Edema and infection are again both possibilities. Also consider superimposed malignancy, particularly given infusion ports. CXR: Bilateral mostly nodular mostly interstitial disease, as described. This could represent interstitial pneumonia or edema, among many other possibilities. However, given the nodular appearance and the presence of an infusion catheter the possibility of nodular metastatic disease should also be considered. Unlikely UTI UA 10-15 WBC UCx: NG VRE bacteremia 10/29 BCx: VRE; 10/31 Bcx neg 10/29 TTE: focal AV sclerosis with adequate cusp excursion. thickened MV leaflets with normal excursion. mild mitral annulus and aortic root calcification. normal TV. no MR. mild TR. PV not visualized. QTc 552 Afib COPD Hypothyroid Dyslipidemia HTN DM Anemia CVA G tube, h/o abscess complication head and neck cancer Plan: - Continue Ertapenem #5 (Abx #6/7-10) for ESBL PNA 11/15/19 SP Linezolid #/ for VRE bacteremia and Zosyn #2 11/03 Tamiflu #5 11/03 DC amikacin and ertapenem #4 / SP Vanc #3 monitor temp and CBC monitor resp status COVID19 neg x2, Influenza A upon admission- repeat influenza swab to determine isolation status f/u bcx TTE without severe valve insufficiency and bacteremia low grade. recommend repeating bcx at end of therapy to ensure resolution of bacteremia. If has recurrent fevers, will recommend ILENE. WENDI RN Thank you for this consult. [facility] Will continue to follow the patient with you. Subjective Allergies: Coded Allergies: No Known Allergies (Unverified , 10/30/19) Subjective afebrile remains intubated; on 40% Fio2 mild leukocytosis Objective Vital Signs Last 24 Hour Vital Signs Date Time Temp Pulse Resp B/P (MAP) Pulse Ox O2 Delivery O2 Flow Rate FiO2 11/19/19 10:00 78 16 93 Mechanical Ventilator 40 11/19/19 09:20 78 16 40 11/19/19 09:00 72 16 89/55 (66) 96 11/19/19 08:00 99.0 76 15 103/75 (84) 94 11/19/19 08:00 Mechanical Ventilator 11/19/19 08:00 40 11/19/19 07:22 78 16 40 11/19/19 07:00 70 16 103/65 (78) 99 11/19/19 06:30 66 16 11/19/19 06:00 70 16 93/64 (74) 93 11/19/19 05:00 98.5 63 16 112/64 (80) 92 11/19/19 04:00 68 18 101/50 (67) 94 11/19/19 04:00 40 11/19/19 04:00 73 11/19/19 04:00 Mechanical Ventilator 11/19/19 03:00 72 16 40 11/19/19 03:00 66 16 112/68 (83) 92 11/19/19 02:00 74 16 106/56 (73) 89 11/19/19 01:00 71 16 103/63 (76) 91 11/19/19 00:00 40 11/19/19 00:00 98.6 70 14 106/65 (79) 94 11/19/19 00:00 Mechanical Ventilator 11/19/19 00:00 68 11/18/19 23:08 74 16 40 11/18/19 22:00 67 16 89/58 (68) 85 11/18/19 21:03 109/77 11/18/19 21:00 72 16 109/77 (88) 98 11/18/19 20:00 65 11/18/19 20:00 40 11/18/19 20:00 98.8 76 15 113/81 (92) 99 11/18/19 20:00 Mechanical Ventilator 11/18/19 19:10 77 17 40 11/18/19 19:00 67 16 87/54 (65) 95 11/18/19 18:18 63 15 119/59 (79) 93 11/18/19 18:00 67 16 91/55 (67) 90 11/18/19 17:00 66 16 103/65 (78) 96 11/18/19 16:00 Mechanical Ventilator 11/18/19 16:00 98.2 75 15 108/63 (78) 92 11/18/19 16:00 40 11/18/19 16:00 73 11/18/19 15:07 72 16 40 11/18/19 15:00 69 12 112/67 (82) 99 11/18/19 14:00 73 14 97/60 (72) 98 11/18/19 13:00 67 16 92/59 (70) 100 11/18/19 12:43 71 16 111/69 (83) 100 11/18/19 12:00 Mechanical Ventilator 11/18/19 12:00 40 11/18/19 12:00 67 11/18/19 12:00 98.0 68 16 88/58 (68) 99 11/18/19 11:44 67 16 104/61 (75) 98 11/18/19 11:07 82 16 40 11/18/19 11:00 68 16 80/56 (64) 96 Height (Feet): 6 Height (Inches): 1.00 Weight (Pounds): 156 Objective Gen: NAD. intubated. HEENT: ETT. CV: S1+S2. no rubs or gallop Resp: coarse. regular. equal chest rise. no wheezes Abd: soft. G tube. nondistended. Skin: warm. dry. Neuro: awake. follows simple commands. calm Microbiology Date/Time Source Procedure Growth Status 11/18/19 10:25 Nasal Nares - Final Complete 11/18/19 10:25 Nasal Nares - Final Complete Laboratory Tests Test 11/18/19 12:38 11/19/19 03:50 11/19/19 08:10 Arterial Blood pH 7.523 (7.350-7.450) 7.488 (7.350-7.450) Arterial Blood Partial Pressure CO2 26.5 mmHg (35.0-45.0) L 29.5 mmHg (35.0-45.0) L Arterial Blood Partial Pressure O2 87.9 mmHg (75.0-100.0) 66.8 mmHg (75.0-100.0) L Arterial Blood HCO3 21.3 mmol/L (22.0-26.0) L 21.9 mmol/L (22.0-26.0) L Arterial Blood Oxygen Saturation 96.6 % (95-100) 93.3 % (95-100) L Arterial Blood Base Excess -0.6 (-2-2) -0.8 (-2-2) Ty Test Positive Positive White Blood Count 11.8 K/UL (4.8-10.8) H Red Blood Count 3.61 M/UL (4.70-6.10) L Hemoglobin 10.4 G/DL (14.2-18.0) L Hematocrit 31.4 % (42.0-52.0) L Mean Corpuscular Volume 87 FL (80-99) Mean Corpuscular Hemoglobin 28.8 PG (27.0-31.0) Mean Corpuscular Hemoglobin Concent 33.1 G/DL (32.0-36.0) Red Cell Distribution Width 19.2 % (11.6-14.8) H Platelet Count 299 K/UL (150-450) Mean Platelet Volume 5.1 FL (6.5-10.1) L Neutrophils (%) (Auto) 57.4 % (45.0-75.0) Lymphocytes (%) (Auto) 24.5 % (20.0-45.0) Monocytes (%) (Auto) 13.0 % (1.0-10.0) H Eosinophils (%) (Auto) 3.6 % (0.0-3.0) H Basophils (%) (Auto) 1.5 % (0.0-2.0) Sodium Level 143 MMOL/L (136-145) Potassium Level 4.7 MMOL/L (3.5-5.1) Chloride Level 109 MMOL/L (98-107) H Carbon Dioxide Level 22 MMOL/L (21-32) Anion Gap 13 mmol/L (5-15) Blood Urea Nitrogen 21 mg/dL (7-18) H Creatinine 1.1 MG/DL (0.55-1.30) Estimat Glomerular Filtration Rate > 60 mL/min (>60) Glucose Level 83 MG/DL (74-106) Calcium Level 8.3 MG/DL (8.5-10.1) L Phosphorus Level 3.0 MG/DL (2.5-4.9) Magnesium Level 2.7 MG/DL (1.8-2.4) H Total Bilirubin 0.1 MG/DL (0.2-1.0) L Aspartate Amino Transf (AST/SGOT) 57 U/L (15-37) H Alanine Aminotransferase (ALT/SGPT) 74 U/L (12-78) Alkaline Phosphatase 153 U/L (46-116) H Total Protein 6.8 G/DL (6.4-8.2) Albumin 2.4 G/DL (3.4-5.0) L Globulin 4.4 g/dL Albumin/Globulin Ratio 0.5 (1.0-2.7) L Current Medications Medications (Trade) Dose Ordered Sig/Tasha Route PRN Reason Start Time Stop Time Status Last Admin Dose Admin Acetaminophen (Tylenol) 650 mg Q4H PRN ORAL fever 10/30/19 11:15 11/29/19 11:14 11/10/19 19:43 Albuterol/ Ipratropium (Albuterol/ Ipratropium) 3 ml Q4HRT PRN HHN sob 11/16/19 09:00 11/21/19 08:59 Amiodarone HCl (Cordarone) 100 mg DAILY PEG 11/04/19 09:00 01/29/20 08:59 11/19/19 08:16 Ertapenem 1 gm/ Sodium Chloride 55 ml @ 110 mls/hr Q24H IVPB 11/15/19 14:00 11/20/19 13:59 11/18/19 13:17 Heparin Sodium (Porcine) (Heparin 5000 units/ml) 5,000 units EVERY 12 HOURS SUBQ 11/02/19 09:00 12/17/19 08:59 11/19/19 08:18 Levothyroxine Sodium (Synthroid) 50 mcg DAILY@0630 GT 10/31/19 06:30 11/30/19 06:29 11/19/19 06:34 Lorazepam (Ativan 2mg/ml 1ml) 2 mg Q4H PRN IV For Anxiety 11/14/19 21:15 11/21/19 21:14 11/16/19 20:28 Norepinephrine Bitartrate 4 mg/ Dextrose 254 ml @ 0 mls/hr Q24H IV 10/30/19 22:00 11/29/19 21:59 11/01/19 23:54 Ondansetron HCl (Zofran) 4 mg Q6H PRN IVP Nausea & Vomiting 10/30/19 11:15 11/29/19 11:14 11/12/19 23:52 Pantoprazole (Protonix) 40 mg DAILY IVP 10/31/19 09:00 11/30/19 08:59 11/19/19 08:16 Polyethylene Glycol (Miralax) 17 gm DAILYPRN PRN ORAL Constipation 10/30/19 11:15 11/29/19 11:14 Quetiapine Fumarate (SEROqueL) 100 mg Q12HR GT 10/30/19 23:00 12/14/19 22:59 11/19/19 08:16 Daphne Sy M.D. Nov 19, 2019 10:18
--- NOTE | 2019-11-19 11:41 | NUR ---
NURSE NOTES: Seen by Dr. Kaiser and assessed patient with new orders.
--- NOTE | 2019-11-19 11:44 | Pulmonolgy Critical Care Note ---
Critical Care - Asmt/Plan Problems: (1) Acute respiratory failure (2) Influenza A (3) Enterococcal bacteremia (4) Nosocomial pneumonia (5) COPD (chronic obstructive pulmonary disease) (6) Atrial fibrillation (7) Severe anemia (8) Hypothyroidism (9) Psychosis Respiratory: monitor respiratory rate, adjust FIO2, CXR Cardiac: continue to monitor HR/BP Renal: F/U I&O, keep IV fluid, check electrolytes Infectious Disease: check cultures Gastrointestinal: continue feedings/current rate, adjust feedings Endocrine: monitor blood sugar Hematologic: monitor H/H, transfuse if hgb<8.5 Neurologic: PRN Ativan, keep patient comfortable Affect: PRN ativan Prophylaxis: Protonix Time Spent (Minutes): 40 Notes Reviewed: materials research engineer, cardio Discussed with: nurses, consultants, case management specialisthuman resources compliance manager - Objective Last 24 Hour Vital Signs Date Time Temp Pulse Resp B/P (MAP) Pulse Ox O2 Delivery O2 Flow Rate FiO2 11/19/19 10:00 78 16 93 Mechanical Ventilator 40 11/19/19 09:20 78 16 40 11/19/19 09:00 72 16 89/55 (66) 96 11/19/19 08:00 99.0 76 15 103/75 (84) 94 11/19/19 08:00 Mechanical Ventilator 11/19/19 08:00 40 11/19/19 07:22 78 16 40 11/19/19 07:00 70 16 103/65 (78) 99 11/19/19 06:30 66 16 11/19/19 06:00 70 16 93/64 (74) 93 11/19/19 05:00 98.5 63 16 112/64 (80) 92 11/19/19 04:00 68 18 101/50 (67) 94 11/19/19 04:00 40 11/19/19 04:00 73 11/19/19 04:00 Mechanical Ventilator 11/19/19 03:00 72 16 40 11/19/19 03:00 66 16 112/68 (83) 92 11/19/19 02:00 74 16 106/56 (73) 89 11/19/19 01:00 71 16 103/63 (76) 91 11/19/19 00:00 40 11/19/19 00:00 98.6 70 14 106/65 (79) 94 11/19/19 00:00 Mechanical Ventilator 11/19/19 00:00 68 11/18/19 23:08 74 16 40 11/18/19 22:00 67 16 89/58 (68) 85 11/18/19 21:03 109/77 11/18/19 21:00 72 16 109/77 (88) 98 11/18/19 20:00 65 11/18/19 20:00 40 11/18/19 20:00 98.8 76 15 113/81 (92) 99 11/18/19 20:00 Mechanical Ventilator 11/18/19 19:10 77 17 40 11/18/19 19:00 67 16 87/54 (65) 95 11/18/19 18:18 63 15 119/59 (79) 93 11/18/19 18:00 67 16 91/55 (67) 90 11/18/19 17:00 66 16 103/65 (78) 96 11/18/19 16:00 Mechanical Ventilator 11/18/19 16:00 98.2 75 15 108/63 (78) 92 11/18/19 16:00 40 11/18/19 16:00 73 11/18/19 15:07 72 16 40 11/18/19 15:00 69 12 112/67 (82) 99 11/18/19 14:00 73 14 97/60 (72) 98 11/18/19 13:00 67 16 92/59 (70) 100 11/18/19 12:43 71 16 111/69 (83) 100 11/18/19 12:00 Mechanical Ventilator 11/18/19 12:00 40 11/18/19 12:00 67 11/18/19 12:00 98.0 68 16 88/58 (68) 99 11/18/19 11:44 67 16 104/61 (75) 98 Status: awake Condition: critical HEENT: atraumatic Neck: full ROM Lungs: chest wall tender Heart: HR/BP stable Abdomen: soft, non-tender, feeding tube Extremities: edema Decubiti: stage Micro: Microbiology Date/Time Source Procedure Growth Status 11/18/19 10:25 Nasal Nares - Final Complete 11/18/19 10:25 Nasal Nares - Final Complete Critical Care - Subjective ROS Limited/Unobtainable: Yes Interval Events: still thick secretions, yellowish Condition: critical EKG Rhythm: Sinus Rhythm FI02: 40 Vent Support Breath Rate: 16 Vent Support Mode: AC Vent Tidal Volume: 600 Sputum Amount: Small PEEP: 0.0 PIP: 31 Tube Feeding Amount: 50 I&O: Intake and Output 11/18/19 11/19/19 19:00 07:00 Intake Total 1055 ml 650 ml Output Total 670 ml 700 ml Balance 385 ml -50 ml Intake Free Water 150 ml 100 ml IV Total 305 ml Tube Feeding 600 ml 550 ml Output Urine Total 420 ml 550 ml Stool Total 250 ml 150 ml ET-Tube: 7.5 ET Position: 21 Labs: Laboratory Tests Test 11/18/19 12:38 11/19/19 03:50 11/19/19 08:10 Arterial Blood pH 7.523 (7.350-7.450) 7.488 (7.350-7.450) Arterial Blood Partial Pressure CO2 26.5 mmHg (35.0-45.0) L 29.5 mmHg (35.0-45.0) L Arterial Blood Partial Pressure O2 87.9 mmHg (75.0-100.0) 66.8 mmHg (75.0-100.0) L Arterial Blood HCO3 21.3 mmol/L (22.0-26.0) L 21.9 mmol/L (22.0-26.0) L Arterial Blood Oxygen Saturation 96.6 % (95-100) 93.3 % (95-100) L Arterial Blood Base Excess -0.6 (-2-2) -0.8 (-2-2) Ty Test Positive Positive White Blood Count 11.8 K/UL (4.8-10.8) H Red Blood Count 3.61 M/UL (4.70-6.10) L Hemoglobin 10.4 G/DL (14.2-18.0) L Hematocrit 31.4 % (42.0-52.0) L Mean Corpuscular Volume 87 FL (80-99) Mean Corpuscular Hemoglobin 28.8 PG (27.0-31.0) Mean Corpuscular Hemoglobin Concent 33.1 G/DL (32.0-36.0) Red Cell Distribution Width 19.2 % (11.6-14.8) H Platelet Count 299 K/UL (150-450) Mean Platelet Volume 5.1 FL (6.5-10.1) L Neutrophils (%) (Auto) 57.4 % (45.0-75.0) Lymphocytes (%) (Auto) 24.5 % (20.0-45.0) Monocytes (%) (Auto) 13.0 % (1.0-10.0) H Eosinophils (%) (Auto) 3.6 % (0.0-3.0) H Basophils (%) (Auto) 1.5 % (0.0-2.0) Sodium Level 143 MMOL/L (136-145) Potassium Level 4.7 MMOL/L (3.5-5.1) Chloride Level 109 MMOL/L (98-107) H Carbon Dioxide Level 22 MMOL/L (21-32) Anion Gap 13 mmol/L (5-15) Blood Urea Nitrogen 21 mg/dL (7-18) H Creatinine 1.1 MG/DL (0.55-1.30) Estimat Glomerular Filtration Rate > 60 mL/min (>60) Glucose Level 83 MG/DL (74-106) Calcium Level 8.3 MG/DL (8.5-10.1) L Phosphorus Level 3.0 MG/DL (2.5-4.9) Magnesium Level 2.7 MG/DL (1.8-2.4) H Total Bilirubin 0.1 MG/DL (0.2-1.0) L Aspartate Amino Transf (AST/SGOT) 57 U/L (15-37) H Alanine Aminotransferase (ALT/SGPT) 74 U/L (12-78) Alkaline Phosphatase 153 U/L (46-116) H Total Protein 6.8 G/DL (6.4-8.2) Albumin 2.4 G/DL (3.4-5.0) L Globulin 4.4 g/dL Albumin/Globulin Ratio 0.5 (1.0-2.7) L Jackie Kaiser MD Nov 19, 2019 11:44
--- NOTE | 2019-11-19 12:33 | NUR ---
NURSE NOTES: Repositioned patient. kept dry, clean and comfortable.
[2019-11-19] MEDS: Ertapenem 1 GM in NS 55 ML IVPB SCH (14:06)
--- NOTE | 2019-11-19 14:06 | Diagnostic Imaging Report ---
Indication: Dyspnea Technique: One view of the chest Comparison: 11/18/2019 Findings: Patient is rotated to the right, more so than on the previous study. Opacity involving the right mid and lower lung is new, may in part be artifactual due to the rotation but suspect that infiltrate is present. There may be some volume loss on the right exaggerated by the rotation. There is also suggestion of a small right pleural effusion. Stable irregular opacity at the left lung base as well as prominent reticular interstitial markings. The heart size is normal. Stable satisfactory position of endotracheal tube. Right chest port catheter again demonstrated Impression: New/increasing right mid and lower lung infiltrate and possibly associated volume loss. Suspect associated small right pleural effusion.
--- NOTE | 2019-11-19 14:12 | NUR ---
NURSE NOTES: Repositioned patient. Provided oral care.
--- NOTE | 2019-11-19 15:02 | NUR ---
NURSE NOTES: Seen by Dr. Sy.
--- NOTE | 2019-11-19 15:33 | Cardiology Progress Note ---
Assessment/Plan Assessment/Plan 1. Paroxysmal episodes of atrial fibrillation. 2. Respiratory failure. 3. Influenza A positive. covid negX1 4. Malignant neoplasm of the larynx. 5. History of hypertension. 6. History of hyperlipidemia. 7. History of hypothyroidism. 8. Respiratory failure on a mechanical ventilator. 9. Diabetes mellitus type 2. 10. Coagulopathy. 11. Abnormal liver function tests. 12. Hypotension likely from sepsis and shock 13. VRE bacteremia 14. Hypotension resolved influenza positive covid neg but with sensitivity of 67% and persistent cough i remain concerned bp is lwo improved post bolus yest now back to beign lwo will given more bolus off pressor anemic but stable wbc stable final echo noted tele reviewed sinus no afib documented weaned for 1 hour afebrile Subjective ROS Limited/Unobtainable: Yes Subjective on vent per rn mod secretion still is awake no diarrhea no vomiting but has a rectal tube sat are fien no further bp drops Objective Last 24 Hour Vital Signs Date Time Temp Pulse Resp B/P (MAP) Pulse Ox O2 Delivery O2 Flow Rate FiO2 11/19/19 13:00 74 16 88/55 (66) 94 11/19/19 12:40 76 17 40 11/19/19 12:00 72 16 85/58 (67) 94 11/19/19 12:00 72 11/19/19 12:00 Mechanical Ventilator 11/19/19 12:00 40 11/19/19 11:00 71 16 87/56 (66) 91 11/19/19 10:00 78 16 93 Mechanical Ventilator 40 11/19/19 10:00 72 16 82/59 (67) 91 11/19/19 09:20 78 16 40 11/19/19 09:00 72 16 89/55 (66) 96 11/19/19 08:00 99.0 76 15 103/75 (84) 94 11/19/19 08:00 73 11/19/19 08:00 Mechanical Ventilator 11/19/19 08:00 40 11/19/19 07:22 78 16 40 11/19/19 07:00 70 16 103/65 (78) 99 11/19/19 06:30 66 16 11/19/19 06:00 70 16 93/64 (74) 93 11/19/19 05:00 98.5 63 16 112/64 (80) 92 11/19/19 04:00 68 18 101/50 (67) 94 11/19/19 04:00 40 11/19/19 04:00 73 11/19/19 04:00 Mechanical Ventilator 11/19/19 03:00 72 16 40 11/19/19 03:00 66 16 112/68 (83) 92 11/19/19 02:00 74 16 106/56 (73) 89 11/19/19 01:00 71 16 103/63 (76) 91 11/19/19 00:00 40 11/19/19 00:00 98.6 70 14 106/65 (79) 94 11/19/19 00:00 Mechanical Ventilator 11/19/19 00:00 68 11/18/19 23:08 74 16 40 11/18/19 22:00 67 16 89/58 (68) 85 11/18/19 21:03 109/77 11/18/19 21:00 72 16 109/77 (88) 98 11/18/19 20:00 65 11/18/19 20:00 40 11/18/19 20:00 98.8 76 15 113/81 (92) 99 11/18/19 20:00 Mechanical Ventilator 11/18/19 19:10 77 17 40 11/18/19 19:00 67 16 87/54 (65) 95 11/18/19 18:18 63 15 119/59 (79) 93 11/18/19 18:00 67 16 91/55 (67) 90 11/18/19 17:00 66 16 103/65 (78) 96 11/18/19 16:00 Mechanical Ventilator 11/18/19 16:00 98.2 75 15 108/63 (78) 92 11/18/19 16:00 40 11/18/19 16:00 73 General Appearance: no apparent distress, alert, on vent, patient on isolation Extremities: no swelling Intake and Output 11/18/19 11/19/19 19:00 07:00 Intake Total 1055 ml 700 ml Output Total 670 ml 730 ml Balance 385 ml -30 ml Intake Free Water 150 ml 100 ml IV Total 305 ml Tube Feeding 600 ml 600 ml Output Urine Total 420 ml 580 ml Stool Total 250 ml 150 ml Laboratory Tests Test 11/19/19 03:50 11/19/19 08:10 White Blood Count 11.8 K/UL (4.8-10.8) H Red Blood Count 3.61 M/UL (4.70-6.10) L Hemoglobin 10.4 G/DL (14.2-18.0) L Hematocrit 31.4 % (42.0-52.0) L Mean Corpuscular Volume 87 FL (80-99) Mean Corpuscular Hemoglobin 28.8 PG (27.0-31.0) Mean Corpuscular Hemoglobin Concent 33.1 G/DL (32.0-36.0) Red Cell Distribution Width 19.2 % (11.6-14.8) H Platelet Count 299 K/UL (150-450) Mean Platelet Volume 5.1 FL (6.5-10.1) L Neutrophils (%) (Auto) 57.4 % (45.0-75.0) Lymphocytes (%) (Auto) 24.5 % (20.0-45.0) Monocytes (%) (Auto) 13.0 % (1.0-10.0) H Eosinophils (%) (Auto) 3.6 % (0.0-3.0) H Basophils (%) (Auto) 1.5 % (0.0-2.0) Sodium Level 143 MMOL/L (136-145) Potassium Level 4.7 MMOL/L (3.5-5.1) Chloride Level 109 MMOL/L (98-107) H Carbon Dioxide Level 22 MMOL/L (21-32) Anion Gap 13 mmol/L (5-15) Blood Urea Nitrogen 21 mg/dL (7-18) H Creatinine 1.1 MG/DL (0.55-1.30) Estimat Glomerular Filtration Rate > 60 mL/min (>60) Glucose Level 83 MG/DL (74-106) Calcium Level 8.3 MG/DL (8.5-10.1) L Phosphorus Level 3.0 MG/DL (2.5-4.9) Magnesium Level 2.7 MG/DL (1.8-2.4) H Total Bilirubin 0.1 MG/DL (0.2-1.0) L Aspartate Amino Transf (AST/SGOT) 57 U/L (15-37) H Alanine Aminotransferase (ALT/SGPT) 74 U/L (12-78) Alkaline Phosphatase 153 U/L (46-116) H Total Protein 6.8 G/DL (6.4-8.2) Albumin 2.4 G/DL (3.4-5.0) L Globulin 4.4 g/dL Albumin/Globulin Ratio 0.5 (1.0-2.7) L Arterial Blood pH 7.488 (7.350-7.450) Arterial Blood Partial Pressure CO2 29.5 mmHg (35.0-45.0) L Arterial Blood Partial Pressure O2 66.8 mmHg (75.0-100.0) L Arterial Blood HCO3 21.9 mmol/L (22.0-26.0) L Arterial Blood Oxygen Saturation 93.3 % (95-100) L Arterial Blood Base Excess -0.8 (-2-2) Ty Test Positive Microbiology Date/Time Source Procedure Growth Status 11/18/19 10:25 Nasal Nares - Final Complete 11/18/19 10:25 Nasal Nares - Final Complete Carlos Slade MD Nov 19, 2019 15:33
--- NOTE | 2019-11-19 16:22 | NUR ---
NURSE NOTES: Bed bath given.
--- NOTE | 2019-11-19 16:34 | NUR ---
CASE MANAGEMENT: REVIEW 11/19/19 SI: RESP FAILURE . PNA . INFLUENZA . VRE (+) BACTEREMIA 999.0 76 15 89/55 96% MECH VENT FIO2 40 82/59 wbc 11.8 H/H 10.4/31.4 MG 2.7ca+ 8.3 albumin 2.4 ABG: pH7.488 pCO2- 29.5 pO2 66.8 HCO3 21.9 O2 SAT 93.3 IS: IV NS @100ML/HR IV ERTAPENEM Q24HR IV PROTONIX QD SEROQUEL GT BID AMIODARONE PEG QD HEPARIN SQ BID SYNTHROID GT QAM AYANA-HEX 2% TP QD CHEST X-RAY- New/increasing right mid and lower lung infiltrate and possibly associated volume loss. Suspect associated small right pleural effusion. \: ICU STATUS DCP: [facility]: LOW BP WBC INCREASE WEAN FOR ONE HOUR
--- NOTE | 2019-11-19 16:55 | NUR ---
NURSE NOTES: Seen by Dr. Slade and assessed patient. He said he will order some bolus.
--- NOTE | 2019-11-19 17:29 | Internal Med Progress Note ---
Subjective Date of Service: Nov 19, 2019 Physician Name Gallito Turcios Attending Physician Danny Stark MD Current Medications Medications (Trade) Dose Ordered Sig/Tasha Route PRN Reason Start Time Stop Time Status Last Admin Dose Admin Acetaminophen (Tylenol) 650 mg Q4H PRN ORAL fever 10/30/19 11:15 11/29/19 11:14 11/10/19 19:43 Albuterol/ Ipratropium (Albuterol/ Ipratropium) 3 ml Q4HRT PRN HHN sob 11/16/19 09:00 11/21/19 08:59 Amiodarone HCl (Cordarone) 100 mg DAILY PEG 11/04/19 09:00 01/29/20 08:59 11/19/19 08:16 Ertapenem 1 gm/ Sodium Chloride 55 ml @ 110 mls/hr Q24H IVPB 11/15/19 14:00 11/20/19 13:59 11/19/19 14:06 Heparin Sodium (Porcine) (Heparin 5000 units/ml) 5,000 units EVERY 12 HOURS SUBQ 11/02/19 09:00 12/17/19 08:59 11/19/19 08:18 Levothyroxine Sodium (Synthroid) 50 mcg DAILY@0630 GT 10/31/19 06:30 11/30/19 06:29 11/19/19 06:34 Lorazepam (Ativan 2mg/ml 1ml) 2 mg Q4H PRN IV For Anxiety 11/14/19 21:15 11/21/19 21:14 11/16/19 20:28 Norepinephrine Bitartrate 4 mg/ Dextrose 254 ml @ 0 mls/hr Q24H IV 10/30/19 22:00 11/29/19 21:59 11/01/19 23:54 Ondansetron HCl (Zofran) 4 mg Q6H PRN IVP Nausea & Vomiting 10/30/19 11:15 11/29/19 11:14 11/12/19 23:52 Pantoprazole (Protonix) 40 mg DAILY IVP 10/31/19 09:00 11/30/19 08:59 11/19/19 08:16 Polyethylene Glycol (Miralax) 17 gm DAILYPRN PRN ORAL Constipation 10/30/19 11:15 11/29/19 11:14 Quetiapine Fumarate (SEROqueL) 100 mg Q12HR GT 10/30/19 23:00 12/14/19 22:59 11/19/19 08:16 Sodium Chloride 1,000 ml @ 100 mls/hr Q10H ONCE IV 11/19/19 15:45 11/20/19 01:44 11/19/19 15:41 Allergies: Coded Allergies: No Known Allergies (Unverified , 10/30/19) ROS Limited/Unobtainable: Yes Subjective 73 YO M with history of esophageal cancer admitted with respiratory failure. Cover for Int Med-Dr Stark. ICU. Intubted and sedated. Objective Last Vital Signs Date Time Temp Pulse Resp B/P (MAP) Pulse Ox O2 Delivery O2 Flow Rate FiO2 11/19/19 17:05 66 16 40 11/19/19 17:00 95/64 (74) 91 11/19/19 16:00 Mechanical Ventilator 11/19/19 16:00 99.7 Laboratory Tests Test 11/19/19 03:50 11/19/19 08:10 White Blood Count 11.8 K/UL (4.8-10.8) H Red Blood Count 3.61 M/UL (4.70-6.10) L Hemoglobin 10.4 G/DL (14.2-18.0) L Hematocrit 31.4 % (42.0-52.0) L Mean Corpuscular Volume 87 FL (80-99) Mean Corpuscular Hemoglobin 28.8 PG (27.0-31.0) Mean Corpuscular Hemoglobin Concent 33.1 G/DL (32.0-36.0) Red Cell Distribution Width 19.2 % (11.6-14.8) H Platelet Count 299 K/UL (150-450) Mean Platelet Volume 5.1 FL (6.5-10.1) L Neutrophils (%) (Auto) 57.4 % (45.0-75.0) Lymphocytes (%) (Auto) 24.5 % (20.0-45.0) Monocytes (%) (Auto) 13.0 % (1.0-10.0) H Eosinophils (%) (Auto) 3.6 % (0.0-3.0) H Basophils (%) (Auto) 1.5 % (0.0-2.0) Sodium Level 143 MMOL/L (136-145) Potassium Level 4.7 MMOL/L (3.5-5.1) Chloride Level 109 MMOL/L (98-107) H Carbon Dioxide Level 22 MMOL/L (21-32) Anion Gap 13 mmol/L (5-15) Blood Urea Nitrogen 21 mg/dL (7-18) H Creatinine 1.1 MG/DL (0.55-1.30) Estimat Glomerular Filtration Rate > 60 mL/min (>60) Glucose Level 83 MG/DL (74-106) Calcium Level 8.3 MG/DL (8.5-10.1) L Phosphorus Level 3.0 MG/DL (2.5-4.9) Magnesium Level 2.7 MG/DL (1.8-2.4) H Total Bilirubin 0.1 MG/DL (0.2-1.0) L Aspartate Amino Transf (AST/SGOT) 57 U/L (15-37) H Alanine Aminotransferase (ALT/SGPT) 74 U/L (12-78) Alkaline Phosphatase 153 U/L (46-116) H Total Protein 6.8 G/DL (6.4-8.2) Albumin 2.4 G/DL (3.4-5.0) L Globulin 4.4 g/dL Albumin/Globulin Ratio 0.5 (1.0-2.7) L Arterial Blood pH 7.488 (7.350-7.450) Arterial Blood Partial Pressure CO2 29.5 mmHg (35.0-45.0) L Arterial Blood Partial Pressure O2 66.8 mmHg (75.0-100.0) L Arterial Blood HCO3 21.9 mmol/L (22.0-26.0) L Arterial Blood Oxygen Saturation 93.3 % (95-100) L Arterial Blood Base Excess -0.8 (-2-2) Ty Test Positive Microbiology Date/Time Source Procedure Growth Status 11/18/19 10:25 Nasal Nares - Final Complete 11/18/19 10:25 Nasal Nares - Final Complete Intake and Output 11/18/19 11/19/19 19:00 07:00 Intake Total 1055 ml 700 ml Output Total 670 ml 730 ml Balance 385 ml -30 ml Intake Free Water 150 ml 100 ml IV Total 305 ml Tube Feeding 600 ml 600 ml Output Urine Total 420 ml 580 ml Stool Total 250 ml 150 ml Objective PHYSICAL EXAMINATION: VITAL SIGNS: Temperature 98.1, respirations 25, pulse 92, blood pressure 95/59. GENERAL: The patient is well-developed, well-nourished male, who is intubated and sedated. HEENT: Eyes, pupils are equal and responsive to light and accommodation. Extraocular movements are intact. NECK: Supple without lymphadenopathy. CHEST: Mech vent; Coarse mechanical breath sounds bilaterally without wheezes or rales. CARDIOVASCULAR: Regular rhythm and rate. S1, S2 are normal without murmurs, rubs, or gallops. ABDOMEN: Soft, nontender, and nondistended. Positive bowel sounds. No evidence of hepatosplenomegaly. Currently, no rebound or guarding noted. EXTREMITIES: Negative for clubbing, cyanosis, or edema. RECTAL/GENITAL: Not performed. NEUROLOGICAL: Unable to assess. Assessment/Plan Assessment/Plan ASSESSMENT: This is a 73-year-old male. 1. Respiratory failure. 2. Pneumonia=ESBL E. Coli. 3. Esophageal cancer. 4. Diabetes type 2. 5. Hypertension. 6. Hypercholesterolemia. 7. Atrial fibrillation. 8. Hypothyroidism. 9. Dysphagia. 10. History of prostate cancer. 11. Sepsis=Enterococcus (VRE) TREATMENT: 1. Pneumonia/respiratory failure. ESBL E. Coli A Pulmonary consultation has been obtained with Dr. Jackie Kaiser. An Infectious Disease consultation has been obtained with Dr. Sy. We will follow recommendations of Infectious Disease and Pulmonary. COVID 19=neg X2 2. Esophageal cancer. 3. Diabetes type 2. A NovoLog sliding scale has been instituted. 4. Hypertension. The patient is currently hypotensive secondary to sepsis. 5. Hypercholesterolemia. Continue atorvastatin as above. 6. Atrial fibrillation. Continue amiodarone as above. 7. Hypothyroidism. Continue levothyroxine as above. 8. Dysphagia, status post PEG placement. 9. History of prostate cancer. 10. ABX = ertapenem. Gallito Turcios MD Nov 19, 2019 17:29
--- NOTE | 2019-11-19 18:00 | NUR ---
NURSE NOTES: Repositioned patient. provided oral care.
--- NOTE | 2019-11-19 19:16 | NUR ---
HAND-OFF: Report given to VENKAT Gtz. Endorsed plan of care.
--- NOTE | 2019-11-19 19:23 | NUR ---
NURSE NOTES: received report from leti rn pt awake non verbal oral intubated -vent o2 sat 93 % pt bp 88/67 pt is getting ns bolos as order frorm dr arteaga cont monitor pt
--- NOTE | 2019-11-19 22:00 | NUR ---
NURSE NOTES reposition and suction tolerating tube feeding no residual
[2019-11-20] VITALS (29 sets, daily range): BP systolic 73–129; BP diastolic 47–104
--- NOTE | 2019-11-20 | NUR ---
NURSE NOTES: asleep at interbal confuse and restless
--- NOTE | 2019-11-20 02:00 | NUR ---
NURSE NOTES: reposition and suction
--- NOTE | 2019-11-20 04:00 | NUR ---
NURSE NOTES: complete bed bath back care and oral care done
[2019-11-20 05:06] LABS: BASOPHILS % (AUTO) 1.2 % (0.0-2.0); EOSINOPHILS % (AUTO) 3.4 % (0.0-3.0); HEMATOCRIT 28.7 % (42.0-52.0); HEMOGLOBIN 9.5 G/DL (14.2-18.0); LYMPHOCYTES % (AUTO) 26.5 % (20.0-45.0); MEAN CORPUSCULAR VOLUME 88 FL (80-99); MONOCYTES % (AUTO) 12.8 % (1.0-10.0); NEUTROPHILS % (AUTO) 56.1 % (45.0-75.0); PLATELET COUNT 270 K/UL (150-450); RED BLOOD COUNT 3.25 M/UL (4.70-6.10); RED CELL DISTRIBUTION WIDTH 21.1 % (11.6-14.8); WHITE BLOOD COUNT 9.6 K/UL (4.8-10.8)
[2019-11-20 05:43] LABS: ALANINE AMINOTRANSFERASE 66 U/L (12-78); ALBUMIN 2.2 G/DL (3.4-5.0); ALBUMIN/GLOBULIN RATIO 0.5 (1.0-2.7); ALKALINE PHOSPHATASE 153 U/L (46-116); ANION GAP 8 mmol/L (5-15); ASPARTATE AMINO TRANSFERASE 65 U/L (15-37); BILIRUBIN,TOTAL 0.2 MG/DL (0.2-1.0); BLOOD UREA NITROGEN 21 mg/dL (7-18); CALCIUM 8.3 MG/DL (8.5-10.1); CARBON DIOXIDE 22 MMOL/L (21-32); CHLORIDE 108 MMOL/L (98-107); PHOSPHORUS 3.2 MG/DL (2.5-4.9); POTASSIUM 4.6 MMOL/L (3.5-5.1); SODIUM 138 MMOL/L (136-145)
--- NOTE | 2019-11-20 06:00 | NUR ---
NURSE NOTES: pt very restless and getting out bed marcy soft wrest restraints and ativan 2mg ivp given
[2019-11-20] MEDS: LORazepam Inj 2mg/ml 1ml IV PRN (06:15)
--- NOTE | 2019-11-20 07:24 | NUR ---
HAND-OFF: Report given to [].
--- NOTE | 2019-11-20 07:25 | NUR ---
NURSE NOTES: Late entry: PT and report received from VENKAT Crawford; received PT supine, hypotensive reported that PT received ativan; BP 81/50; no respiratory distress noted ETT 7.5 @ 21 R-lip, AC 16, TV 600, 40%, 0 peep; PT has GT feeding glucerna 1.5 @ 50cc @ goal patent; rectal tube and logan intact patent draining; PIV L-hand 20 and R-hand 20g intact patent flushes well; received PT on bilateral soft wrist restraints no injury noted bilaterally skin intact; will continue to plan of care for PT.
--- NOTE | 2019-11-20 08:33 | NUR ---
RADIOLOGY NOTE: PORTABLE CHEST X-RAY COMPLETED AT 0746 HRS Jason JAFFE
--- NOTE | 2019-11-20 08:52 | Diagnostic Imaging Report ---
Indication: Dyspnea Technique: One view of the chest Comparison: 11/19/2019 Findings: Stable satisfactory position of endotracheal tube. Right chest port catheter remains. There is slightly improved aeration of the right lung, with greater volume. There is suggestion of slightly decreased hazy opacity in the right mid and lower lung. Reticular interstitial disease persists at the left lung base. Irregular left basilar opacity persists. Impression: Slightly improved right lung aeration. Otherwise stable findings as described
[2019-11-20] MEDS: Pantoprazole Inj IVP SCH (09:02)
[2019-11-20] MEDS: Amiodarone 200mg tab PEG SCH (09:02)
[2019-11-20] MEDS: Heparin 5000 units/ml inj SUBQ SCH ×2 (09:06→20:45)
--- NOTE | 2019-11-20 09:50 | NUR ---
RADIOLOGY DEPT, CHEST X-RAY DONE.-P.DYE
--- NOTE | 2019-11-20 11:04 | Internal Med Progress Note ---
Subjective Date of Service: Nov 20, 2019 Physician Name Gallito Turcios Attending Physician Danny Stark MD Current Medications Medications (Trade) Dose Ordered Sig/Tasha Route PRN Reason Start Time Stop Time Status Last Admin Dose Admin Acetaminophen (Tylenol) 650 mg Q4H PRN ORAL fever 10/30/19 11:15 11/29/19 11:14 11/10/19 19:43 Albuterol/ Ipratropium (Albuterol/ Ipratropium) 3 ml Q4HRT PRN HHN sob 11/16/19 09:00 11/21/19 08:59 Amiodarone HCl (Cordarone) 100 mg DAILY PEG 11/04/19 09:00 01/29/20 08:59 11/20/19 09:02 Ertapenem 1 gm/ Sodium Chloride 55 ml @ 110 mls/hr Q24H IVPB 11/15/19 14:00 11/20/19 15:00 11/19/19 14:06 Heparin Sodium (Porcine) (Heparin 5000 units/ml) 5,000 units EVERY 12 HOURS SUBQ 11/02/19 09:00 12/17/19 08:59 11/20/19 09:06 Levothyroxine Sodium (Synthroid) 50 mcg DAILY@0630 GT 10/31/19 06:30 11/30/19 06:29 11/20/19 06:14 Lorazepam (Ativan 2mg/ml 1ml) 2 mg Q4H PRN IV For Anxiety 11/14/19 21:15 11/21/19 21:14 11/20/19 06:15 Norepinephrine Bitartrate 4 mg/ Dextrose 254 ml @ 0 mls/hr Q24H IV 10/30/19 22:00 11/29/19 21:59 11/01/19 23:54 Ondansetron HCl (Zofran) 4 mg Q6H PRN IVP Nausea & Vomiting 10/30/19 11:15 11/29/19 11:14 11/12/19 23:52 Pantoprazole (Protonix) 40 mg DAILY IVP 10/31/19 09:00 11/30/19 08:59 11/20/19 09:02 Polyethylene Glycol (Miralax) 17 gm DAILYPRN PRN ORAL Constipation 10/30/19 11:15 11/29/19 11:14 Quetiapine Fumarate (SEROqueL) 100 mg Q12HR GT 10/30/19 23:00 12/14/19 22:59 11/20/19 09:02 Allergies: Coded Allergies: No Known Allergies (Unverified , 10/30/19) ROS Limited/Unobtainable: Yes Subjective 73 YO M with history of esophageal cancer admitted with respiratory failure. Now Influenza A positive. Cover for Int Med-Dr Stark. ICU. Intubted and sedated. Objective Last Vital Signs Date Time Temp Pulse Resp B/P (MAP) Pulse Ox O2 Delivery O2 Flow Rate FiO2 11/20/19 10:09 58 16 40 11/20/19 10:00 104/54 (71) 99 11/20/19 09:00 98.7 11/20/19 08:00 Mechanical Ventilator Laboratory Tests Test 11/20/19 03:35 11/20/19 08:32 White Blood Count 9.6 K/UL (4.8-10.8) Red Blood Count 3.25 M/UL (4.70-6.10) L Hemoglobin 9.5 G/DL (14.2-18.0) L Hematocrit 28.7 % (42.0-52.0) L Mean Corpuscular Volume 88 FL (80-99) Mean Corpuscular Hemoglobin 29.3 PG (27.0-31.0) Mean Corpuscular Hemoglobin Concent 33.2 G/DL (32.0-36.0) Red Cell Distribution Width 21.1 % (11.6-14.8) H Platelet Count 270 K/UL (150-450) Mean Platelet Volume 4.9 FL (6.5-10.1) L Neutrophils (%) (Auto) 56.1 % (45.0-75.0) Lymphocytes (%) (Auto) 26.5 % (20.0-45.0) Monocytes (%) (Auto) 12.8 % (1.0-10.0) H Eosinophils (%) (Auto) 3.4 % (0.0-3.0) H Basophils (%) (Auto) 1.2 % (0.0-2.0) Sodium Level 138 MMOL/L (136-145) Potassium Level 4.6 MMOL/L (3.5-5.1) Chloride Level 108 MMOL/L (98-107) H Carbon Dioxide Level 22 MMOL/L (21-32) Anion Gap 8 mmol/L (5-15) Blood Urea Nitrogen 21 mg/dL (7-18) H Creatinine 1.0 MG/DL (0.55-1.30) Estimat Glomerular Filtration Rate > 60 mL/min (>60) Glucose Level 90 MG/DL (74-106) Calcium Level 8.3 MG/DL (8.5-10.1) L Phosphorus Level 3.2 MG/DL (2.5-4.9) Magnesium Level 2.5 MG/DL (1.8-2.4) H Total Bilirubin 0.2 MG/DL (0.2-1.0) Aspartate Amino Transf (AST/SGOT) 65 U/L (15-37) H Alanine Aminotransferase (ALT/SGPT) 66 U/L (12-78) Alkaline Phosphatase 153 U/L (46-116) H Total Protein 6.3 G/DL (6.4-8.2) L Albumin 2.2 G/DL (3.4-5.0) L Globulin 4.1 g/dL Albumin/Globulin Ratio 0.5 (1.0-2.7) L Arterial Blood pH 7.481 (7.350-7.450) Arterial Blood Partial Pressure CO2 27.9 mmHg (35.0-45.0) L Arterial Blood Partial Pressure O2 88.4 mmHg (75.0-100.0) Arterial Blood HCO3 20.4 mmol/L (22.0-26.0) L Arterial Blood Oxygen Saturation 96.4 % (95-100) Arterial Blood Base Excess -2.3 (-2-2) L Ty Test Positive Microbiology Date/Time Source Procedure Growth Status 11/18/19 10:25 Nasal Nares - Final Complete 11/18/19 10:25 Nasal Nares - Final Complete Intake and Output 11/19/19 11/20/19 19:00 07:00 Intake Total 1086 ml 1140 ml Output Total 450 ml 480 ml Balance 636 ml 660 ml Intake Free Water 100 ml 90 ml IV Total 386 ml 500 ml Tube Feeding 600 ml 550 ml Output Urine Total 450 ml 480 ml Objective PHYSICAL EXAMINATION: VITAL SIGNS: Temperature 98.1, respirations 25, pulse 92, blood pressure 95/59. GENERAL: The patient is well-developed, well-nourished male, who is intubated and sedated. HEENT: Eyes, pupils are equal and responsive to light and accommodation. Extraocular movements are intact. NECK: Supple without lymphadenopathy. CHEST: Mech vent; Coarse mechanical breath sounds bilaterally without wheezes or rales. CARDIOVASCULAR: Regular rhythm and rate. S1, S2 are normal without murmurs, rubs, or gallops. ABDOMEN: Soft, nontender, and nondistended. Positive bowel sounds. No evidence of hepatosplenomegaly. Currently, no rebound or guarding noted. EXTREMITIES: Negative for clubbing, cyanosis, or edema. RECTAL/GENITAL: Not performed. NEUROLOGICAL: Unable to assess. Assessment/Plan Assessment/Plan ASSESSMENT: This is a 73-year-old male. 1. Respiratory failure. 2. Pneumonia=ESBL E. Coli. 3. Esophageal cancer. 4. Diabetes type 2. 5. Hypertension. 6. Hypercholesterolemia. 7. Atrial fibrillation. 8. Hypothyroidism. 9. Dysphagia. 10. History of prostate cancer. 11. Sepsis=Enterococcus (VRE) 12. Influenza A positive TREATMENT: 1. Pneumonia/respiratory failure. ESBL E. Coli A Pulmonary consultation has been obtained with Dr. Jackie Kaiser. An Infectious Disease consultation has been obtained with Dr. Sy. We will follow recommendations of Infectious Disease and Pulmonary. COVID 19=neg X2 2. Esophageal cancer. 3. Diabetes type 2. A NovoLog sliding scale has been instituted. 4. Hypertension. The patient is currently hypotensive secondary to sepsis. 5. Hypercholesterolemia. Continue atorvastatin as above. 6. Atrial fibrillation. Continue amiodarone as above. 7. Hypothyroidism. Continue levothyroxine as above. 8. Dysphagia, status post PEG placement. 9. History of prostate cancer. 10. ABX = ertapenem. Gallito Turcios MD Nov 20, 2019 11:04
--- NOTE | 2019-11-20 11:14 | Infectious Diseases Prog Note ---
Assessment/Plan Assessment/Plan A: Low grade fever x1, SP Leukocytosis, neutrophil predominant, recurrent; SP -11/10 u/a neg; ucx Neg Bcx neg -11/08 Cdiff neg Septic shock, sp off of pressors PNA- persistent infiltrates, hypoxia- COVID19 neg x2 Influenza A, sp rx 11/17 Influenza sc neg SARS CoV PCR negative x2 (10/29, 11/10) 11/19 CXR: Slightly improved right lung aeration. Otherwise stable findings as described 11/16 CXR: Bilateral interstitial and airspace opacities appear mildly worsened compared to the prior exam, with more confluent opacification seen in the right upper lobe and left lung base. 11/11 CXR: Bilateral diffuse interstitial and airspace infiltrates are unchanged.Stable satisfactory position of endotracheal tube and right jugular port catheter.The heart size is normal. 11/10 sp cx C. tropicalis, ESBL E.coli (S Zosyn, Ertapenem) 11/09 CXR: Persistent basilar predominant interstitial and airspace infiltrates. Edema and infection are again both possibilities. Also consider superimposed malignancy, particularly given infusion ports. CXR: Bilateral mostly nodular mostly interstitial disease, as described. This could represent interstitial pneumonia or edema, among many other possibilities. However, given the nodular appearance and the presence of an infusion catheter the possibility of nodular metastatic disease should also be considered. Unlikely UTI UA 10-15 WBC UCx: NG VRE bacteremia 10/29 BCx: VRE; 10/31 Bcx neg 10/29 TTE: focal AV sclerosis with adequate cusp excursion. thickened MV leaflets with normal excursion. mild mitral annulus and aortic root calcification. normal TV. no MR. mild TR. PV not visualized. QTc 552 Afib COPD Hypothyroid Dyslipidemia HTN DM Anemia CVA G tube, h/o abscess complication head and neck cancer Plan: - Continue Ertapenem #6 (Abx #7/7-10) for ESBL PNA 11/15/19 SP Linezolid #14/ for VRE bacteremia and Zosyn #2 11/03 Tamiflu #5 11/03 DC amikacin and ertapenem #4 11/01 SP Vanc #3 monitor temp and CBC monitor resp status f/u bcx TTE without severe valve insufficiency and bacteremia low grade. recommend repeating bcx at end of therapy to ensure resolution of bacteremia. If has recurrent fevers, will recommend ILENE. DW RN Thank you for this consult. [facility] Will continue to follow the patient with you. Subjective Allergies: Coded Allergies: No Known Allergies (Unverified , 10/30/19) Subjective afebrile remains intubated; on 40% Fio2 mild leukocytosis resolved Objective Vital Signs Last 24 Hour Vital Signs Date Time Temp Pulse Resp B/P (MAP) Pulse Ox O2 Delivery O2 Flow Rate FiO2 11/20/19 11:00 58 16 82/54 (63) 99 11/20/19 10:09 58 16 40 11/20/19 10:00 65 16 104/54 (71) 99 11/20/19 09:00 98.7 65 16 93/54 (67) 98 11/20/19 08:26 60 16 40 11/20/19 08:00 58 16 81/50 (60) 98 11/20/19 08:00 40 11/20/19 08:00 Mechanical Ventilator 11/20/19 07:13 60 16 97/51 (66) 91 11/20/19 07:10 61 16 82/50 (61) 89 11/20/19 07:09 63 16 81/48 (59) 88 11/20/19 07:08 64 16 77/47 (57) 86 11/20/19 07:05 64 16 81/52 (62) 87 11/20/19 07:00 98.8 65 16 73/53 (60) 85 11/20/19 06:34 69 16 11/20/19 06:00 73 19 129/71 (90) 93 11/20/19 05:00 73 20 124/104 (111) 98 11/20/19 04:00 Mechanical Ventilator 11/20/19 04:00 40 11/20/19 04:00 70 11/20/19 04:00 99.0 65 18 122/79 (93) 95 11/20/19 03:00 72 17 112/57 (75) 95 11/20/19 02:54 74 18 40 11/20/19 02:07 11/20/19 02:00 68 16 107/66 (80) 98 11/20/19 01:00 63 16 93/57 (69) 94 11/20/19 00:00 Mechanical Ventilator 11/20/19 00:00 40 11/20/19 00:00 99.5 63 16 102/65 (77) 97 11/20/19 00:00 64 11/19/19 23:15 69 18 40 11/19/19 23:00 65 16 99/64 (76) 95 11/19/19 22:00 Mechanical Ventilator 11/19/19 22:00 110/46 11/19/19 22:00 63 14 104/60 (75) 100 11/19/19 21:00 65 16 110/59 (76) 98 11/19/19 20:00 40 11/19/19 20:00 65 11/19/19 20:00 Mechanical Ventilator 11/19/19 20:00 99.2 60 16 93/61 (72) 96 11/19/19 19:04 67 17 40 11/19/19 19:00 61 16 88/60 (69) 94 11/19/19 18:00 65 16 91/58 (69) 96 11/19/19 17:05 66 16 40 11/19/19 17:00 68 15 95/64 (74) 91 11/19/19 17:00 63 11/19/19 16:00 Mechanical Ventilator 11/19/19 16:00 99.7 67 16 91/60 (70) 97 11/19/19 16:00 40 11/19/19 15:00 63 16 91/65 (74) 96 11/19/19 14:00 71 15 92/56 (68) 94 11/19/19 13:00 74 16 88/55 (66) 94 11/19/19 12:40 76 17 40 11/19/19 12:00 72 16 85/58 (67) 94 11/19/19 12:00 72 11/19/19 12:00 Mechanical Ventilator 11/19/19 12:00 40 Height (Feet): 6 Height (Inches): 1.00 Weight (Pounds): 160 Objective Gen: NAD. intubated. HEENT: ETT. CV: S1+S2. no rubs or gallop Resp: coarse. regular. equal chest rise. no wheezes Abd: soft. G tube. nondistended. Skin: warm. dry. Neuro: awake. follows simple commands. calm Microbiology Date/Time Source Procedure Growth Status 11/18/19 10:25 Nasal Nares - Final Complete 11/18/19 10:25 Nasal Nares - Final Complete Laboratory Tests Test 11/20/19 03:35 11/20/19 08:32 White Blood Count 9.6 K/UL (4.8-10.8) Red Blood Count 3.25 M/UL (4.70-6.10) L Hemoglobin 9.5 G/DL (14.2-18.0) L Hematocrit 28.7 % (42.0-52.0) L Mean Corpuscular Volume 88 FL (80-99) Mean Corpuscular Hemoglobin 29.3 PG (27.0-31.0) Mean Corpuscular Hemoglobin Concent 33.2 G/DL (32.0-36.0) Red Cell Distribution Width 21.1 % (11.6-14.8) H Platelet Count 270 K/UL (150-450) Mean Platelet Volume 4.9 FL (6.5-10.1) L Neutrophils (%) (Auto) 56.1 % (45.0-75.0) Lymphocytes (%) (Auto) 26.5 % (20.0-45.0) Monocytes (%) (Auto) 12.8 % (1.0-10.0) H Eosinophils (%) (Auto) 3.4 % (0.0-3.0) H Basophils (%) (Auto) 1.2 % (0.0-2.0) Sodium Level 138 MMOL/L (136-145) Potassium Level 4.6 MMOL/L (3.5-5.1) Chloride Level 108 MMOL/L (98-107) H Carbon Dioxide Level 22 MMOL/L (21-32) Anion Gap 8 mmol/L (5-15) Blood Urea Nitrogen 21 mg/dL (7-18) H Creatinine 1.0 MG/DL (0.55-1.30) Estimat Glomerular Filtration Rate > 60 mL/min (>60) Glucose Level 90 MG/DL (74-106) Calcium Level 8.3 MG/DL (8.5-10.1) L Phosphorus Level 3.2 MG/DL (2.5-4.9) Magnesium Level 2.5 MG/DL (1.8-2.4) H Total Bilirubin 0.2 MG/DL (0.2-1.0) Aspartate Amino Transf (AST/SGOT) 65 U/L (15-37) H Alanine Aminotransferase (ALT/SGPT) 66 U/L (12-78) Alkaline Phosphatase 153 U/L (46-116) H Total Protein 6.3 G/DL (6.4-8.2) L Albumin 2.2 G/DL (3.4-5.0) L Globulin 4.1 g/dL Albumin/Globulin Ratio 0.5 (1.0-2.7) L Arterial Blood pH 7.481 (7.350-7.450) Arterial Blood Partial Pressure CO2 27.9 mmHg (35.0-45.0) L Arterial Blood Partial Pressure O2 88.4 mmHg (75.0-100.0) Arterial Blood HCO3 20.4 mmol/L (22.0-26.0) L Arterial Blood Oxygen Saturation 96.4 % (95-100) Arterial Blood Base Excess -2.3 (-2-2) L Ty Test Positive Current Medications Medications (Trade) Dose Ordered Sig/Tasha Route PRN Reason Start Time Stop Time Status Last Admin Dose Admin Acetaminophen (Tylenol) 650 mg Q4H PRN ORAL fever 10/30/19 11:15 11/29/19 11:14 11/10/19 19:43 Albuterol/ Ipratropium (Albuterol/ Ipratropium) 3 ml Q4HRT PRN HHN sob 11/16/19 09:00 11/21/19 08:59 Amiodarone HCl (Cordarone) 100 mg DAILY PEG 11/04/19 09:00 01/29/20 08:59 11/20/19 09:02 Ertapenem 1 gm/ Sodium Chloride 55 ml @ 110 mls/hr Q24H IVPB 11/15/19 14:00 11/20/19 15:00 11/19/19 14:06 Heparin Sodium (Porcine) (Heparin 5000 units/ml) 5,000 units EVERY 12 HOURS SUBQ 11/02/19 09:00 12/17/19 08:59 11/20/19 09:06 Levothyroxine Sodium (Synthroid) 50 mcg DAILY@0630 GT 10/31/19 06:30 11/30/19 06:29 11/20/19 06:14 Lorazepam (Ativan 2mg/ml 1ml) 2 mg Q4H PRN IV For Anxiety 11/14/19 21:15 11/21/19 21:14 11/20/19 06:15 Norepinephrine Bitartrate 4 mg/ Dextrose 254 ml @ 0 mls/hr Q24H IV 10/30/19 22:00 11/29/19 21:59 11/01/19 23:54 Ondansetron HCl (Zofran) 4 mg Q6H PRN IVP Nausea & Vomiting 10/30/19 11:15 11/29/19 11:14 11/12/19 23:52 Pantoprazole (Protonix) 40 mg DAILY IVP 10/31/19 09:00 11/30/19 08:59 11/20/19 09:02 Polyethylene Glycol (Miralax) 17 gm DAILYPRN PRN ORAL Constipation 10/30/19 11:15 11/29/19 11:14 Quetiapine Fumarate (SEROqueL) 100 mg Q12HR GT 10/30/19 23:00 12/14/19 22:59 11/20/19 09:02 Daphne Sy M.D. Nov 20, 2019 11:14
--- NOTE | 2019-11-20 11:50 | Pulmonolgy Critical Care Note ---
Critical Care - Asmt/Plan Problems: (1) Acute respiratory failure (2) Influenza A (3) Enterococcal bacteremia (4) Nosocomial pneumonia (5) COPD (chronic obstructive pulmonary disease) (6) Atrial fibrillation (7) Severe anemia (8) Hypothyroidism (9) Psychosis Respiratory: monitor respiratory rate, adjust FIO2, CXR, other - wean as tolerated Cardiac: continue pressors, continue to monitor HR/BP Renal: F/U I&O, keep IV fluid, check electrolytes Infectious Disease: check cultures, continue antibiotics Gastrointestinal: continue feedings/current rate Endocrine: monitor blood sugar Neurologic: PRN Ativan Prophylaxis: Protonix Notes Reviewed: cardio Discussed with: nurses, consultants, lining caserrelations manager - Objective Last 24 Hour Vital Signs Date Time Temp Pulse Resp B/P (MAP) Pulse Ox O2 Delivery O2 Flow Rate FiO2 11/20/19 11:14 60 11/20/19 11:00 58 16 82/54 (63) 99 11/20/19 10:09 58 16 40 11/20/19 10:00 65 16 104/54 (71) 99 11/20/19 09:00 98.7 65 16 93/54 (67) 98 11/20/19 08:26 60 16 40 11/20/19 08:00 70 11/20/19 08:00 58 16 81/50 (60) 98 11/20/19 08:00 40 11/20/19 08:00 Mechanical Ventilator 11/20/19 07:13 60 16 97/51 (66) 91 11/20/19 07:10 61 16 82/50 (61) 89 11/20/19 07:09 63 16 81/48 (59) 88 11/20/19 07:08 64 16 77/47 (57) 86 11/20/19 07:05 64 16 81/52 (62) 87 11/20/19 07:00 98.8 65 16 73/53 (60) 85 11/20/19 06:34 69 16 11/20/19 06:00 73 19 129/71 (90) 93 11/20/19 05:00 73 20 124/104 (111) 98 11/20/19 04:00 Mechanical Ventilator 11/20/19 04:00 40 11/20/19 04:00 70 11/20/19 04:00 99.0 65 18 122/79 (93) 95 11/20/19 03:00 72 17 112/57 (75) 95 11/20/19 02:54 74 18 40 11/20/19 02:07 11/20/19 02:00 68 16 107/66 (80) 98 11/20/19 01:00 63 16 93/57 (69) 94 11/20/19 00:00 Mechanical Ventilator 11/20/19 00:00 40 11/20/19 00:00 99.5 63 16 102/65 (77) 97 11/20/19 00:00 64 11/19/19 23:15 69 18 40 11/19/19 23:00 65 16 99/64 (76) 95 11/19/19 22:00 Mechanical Ventilator 11/19/19 22:00 110/46 11/19/19 22:00 63 14 104/60 (75) 100 11/19/19 21:00 65 16 110/59 (76) 98 11/19/19 20:00 40 11/19/19 20:00 65 11/19/19 20:00 Mechanical Ventilator 11/19/19 20:00 99.2 60 16 93/61 (72) 96 11/19/19 19:04 67 17 40 11/19/19 19:00 61 16 88/60 (69) 94 11/19/19 18:00 65 16 91/58 (69) 96 11/19/19 17:05 66 16 40 11/19/19 17:00 68 15 95/64 (74) 91 11/19/19 17:00 63 11/19/19 16:00 Mechanical Ventilator 11/19/19 16:00 99.7 67 16 91/60 (70) 97 11/19/19 16:00 40 11/19/19 15:00 63 16 91/65 (74) 96 11/19/19 14:00 71 15 92/56 (68) 94 11/19/19 13:00 74 16 88/55 (66) 94 11/19/19 12:40 76 17 40 11/19/19 12:00 72 16 85/58 (67) 94 11/19/19 12:00 72 11/19/19 12:00 Mechanical Ventilator 11/19/19 12:00 40 Status: sedated Condition: critical HEENT: atraumatic Lungs: clear Heart: HR/BP stable Abdomen: soft Extremities: no C/C/E Micro: Microbiology Date/Time Source Procedure Growth Status 11/18/19 10:25 Nasal Nares - Final Complete 11/18/19 10:25 Nasal Nares - Final Complete Critical Care - Subjective ROS Limited/Unobtainable: Yes Condition: critical EKG Rhythm: Sinus Rhythm FI02: 40 Vent Support Breath Rate: 16 Vent Support Mode: AC Vent Tidal Volume: 600 Sputum Amount: Moderate PEEP: 0.0 PIP: 24 Tube Feeding Amount: 50 I&O: Intake and Output 11/19/19 11/20/19 19:00 07:00 Intake Total 1086 ml 1140 ml Output Total 450 ml 480 ml Balance 636 ml 660 ml Intake Free Water 100 ml 90 ml IV Total 386 ml 500 ml Tube Feeding 600 ml 550 ml Output Urine Total 450 ml 480 ml ET-Tube: 7.5 ET Position: 21 Labs: Laboratory Tests Test 11/20/19 03:35 11/20/19 08:32 White Blood Count 9.6 K/UL (4.8-10.8) Red Blood Count 3.25 M/UL (4.70-6.10) L Hemoglobin 9.5 G/DL (14.2-18.0) L Hematocrit 28.7 % (42.0-52.0) L Mean Corpuscular Volume 88 FL (80-99) Mean Corpuscular Hemoglobin 29.3 PG (27.0-31.0) Mean Corpuscular Hemoglobin Concent 33.2 G/DL (32.0-36.0) Red Cell Distribution Width 21.1 % (11.6-14.8) H Platelet Count 270 K/UL (150-450) Mean Platelet Volume 4.9 FL (6.5-10.1) L Neutrophils (%) (Auto) 56.1 % (45.0-75.0) Lymphocytes (%) (Auto) 26.5 % (20.0-45.0) Monocytes (%) (Auto) 12.8 % (1.0-10.0) H Eosinophils (%) (Auto) 3.4 % (0.0-3.0) H Basophils (%) (Auto) 1.2 % (0.0-2.0) Sodium Level 138 MMOL/L (136-145) Potassium Level 4.6 MMOL/L (3.5-5.1) Chloride Level 108 MMOL/L (98-107) H Carbon Dioxide Level 22 MMOL/L (21-32) Anion Gap 8 mmol/L (5-15) Blood Urea Nitrogen 21 mg/dL (7-18) H Creatinine 1.0 MG/DL (0.55-1.30) Estimat Glomerular Filtration Rate > 60 mL/min (>60) Glucose Level 90 MG/DL (74-106) Calcium Level 8.3 MG/DL (8.5-10.1) L Phosphorus Level 3.2 MG/DL (2.5-4.9) Magnesium Level 2.5 MG/DL (1.8-2.4) H Total Bilirubin 0.2 MG/DL (0.2-1.0) Aspartate Amino Transf (AST/SGOT) 65 U/L (15-37) H Alanine Aminotransferase (ALT/SGPT) 66 U/L (12-78) Alkaline Phosphatase 153 U/L (46-116) H Total Protein 6.3 G/DL (6.4-8.2) L Albumin 2.2 G/DL (3.4-5.0) L Globulin 4.1 g/dL Albumin/Globulin Ratio 0.5 (1.0-2.7) L Arterial Blood pH 7.481 (7.350-7.450) Arterial Blood Partial Pressure CO2 27.9 mmHg (35.0-45.0) L Arterial Blood Partial Pressure O2 88.4 mmHg (75.0-100.0) Arterial Blood HCO3 20.4 mmol/L (22.0-26.0) L Arterial Blood Oxygen Saturation 96.4 % (95-100) Arterial Blood Base Excess -2.3 (-2-2) L Ty Test Positive Jackie Kaiser MD Nov 20, 2019 11:50
--- NOTE | 2019-11-20 12:55 | NUR ---
NURSE NOTES: PT BP 85/58, remains hypotensive, responsive to light pain, no S/S of respiratory distress noted, will continue to monitor PT.
--- NOTE | 2019-11-20 13:28 | NUR ---
NURSE NOTES: PT daughter Jemima called [phone] saying she is outside of the hospital to sign some documentation; asking for Radha CORRAL to sign paperwork, contacted Radha CORRAL she will call family back.
--- NOTE | 2019-11-20 13:53 | NUR ---
[employer] ASSEMBLER NOTE SPOKE TO DAUGHTER JOSH FOY T:[phone] REQUESTING TO SPEAK WITH MD CORRAL WILL FORWARD THIS MESSAGE TO
[2019-11-20] MEDS: Ertapenem 1 GM in NS 55 ML IVPB SCH (14:28)
--- NOTE | 2019-11-20 15:52 | NUR ---
CASE MANAGEMENT: REVIEW SI: PNA . COPD . SEPTIC SHOCK T 99.5 HR 64 RR 16 HR 77/47 SAT 98% MECH VENT FIO2 40 H/H 9.5/28.7 IS: LEVOPHED IV Q24HR ERTAPENEM IV Q24HR NS IVF BOLUS X1 ICU STATUS DCP: PATIENT IS FROM [facility]
--- NOTE | 2019-11-20 18:17 | NUR ---
NURSE NOTES: PT remains on bilateral soft restraints, remains combative observed trying to kick staff while cleaning patient down, kept clean and dry, rectal and logan remain intact and draining at lowest position.
--- NOTE | 2019-11-20 19:09 | NUR ---
HAND-OFF: Report and PT given to VENKAT Crawford.
--- NOTE | 2019-11-20 19:19 | NUR ---
RESPIRATORY NOTE: Received pt on AC 16, 600VT, 40%, no PEEP. Pt intubated w/ ETT 7.5 @ 21cm lipline, secured by anchorfast. Pt is asleep, responds to stimuli when awake. B/S marcy. rhonchi, sxn small to moderate amounts of thick/thin/frothy, pale-yellow to harrell-yellow secretions. Vent plugged into red outlet, ambubag at bedside. Pt in no apparent distress at this time. Will continue to monitor pt.
--- NOTE | 2019-11-20 19:51 | NUR ---
NURSE NOTES: received report from wen gauthier pt awake and alert but confuse and restless on marcy soft restraint non complaints oral intubated -vent o2 sat 99% reposition and suction
--- NOTE | 2019-11-20 22:00 | NUR ---
NURSE NOTES: reposition and suction
[2019-11-21] VITALS (24 sets, daily range): BP systolic 93–134; BP diastolic 59–94
--- NOTE | 2019-11-21 | NUR ---
NURSE NOTES: sleeping at interval tolerating tube feeding no residual
--- NOTE | 2019-11-21 04:00 | NUR ---
NURSE NOTES:complete bed bath done reposition and suction
[2019-11-21 05:10] LABS: BASOPHILS % (AUTO) 1.5 % (0.0-2.0); EOSINOPHILS % (AUTO) 4.1 % (0.0-3.0); HEMATOCRIT 29.6 % (42.0-52.0); HEMOGLOBIN 9.8 G/DL (14.2-18.0); LYMPHOCYTES % (AUTO) 23.4 % (20.0-45.0); MEAN CORPUSCULAR VOLUME 88 FL (80-99); MONOCYTES % (AUTO) 11.5 % (1.0-10.0); NEUTROPHILS % (AUTO) 59.5 % (45.0-75.0); PLATELET COUNT 292 K/UL (150-450); RED BLOOD COUNT 3.35 M/UL (4.70-6.10); RED CELL DISTRIBUTION WIDTH 20.4 % (11.6-14.8); WHITE BLOOD COUNT 9.4 K/UL (4.8-10.8)
[2019-11-21 05:21] LABS: ALANINE AMINOTRANSFERASE 85 U/L (12-78); ALBUMIN 2.3 G/DL (3.4-5.0); ALBUMIN/GLOBULIN RATIO 0.5 (1.0-2.7); ALKALINE PHOSPHATASE 155 U/L (46-116); ANION GAP 12 mmol/L (5-15); ASPARTATE AMINO TRANSFERASE 65 U/L (15-37); BILIRUBIN,TOTAL 0.2 MG/DL (0.2-1.0); BLOOD UREA NITROGEN 19 mg/dL (7-18); CALCIUM 7.9 MG/DL (8.5-10.1); CARBON DIOXIDE 23 MMOL/L (21-32); CHLORIDE 107 MMOL/L (98-107); CREATININE 1.1 MG/DL (0.55-1.30); POTASSIUM 4.4 MMOL/L (3.5-5.1); SODIUM 142 MMOL/L (136-145)
[2019-11-21 05:28] LABS: PHOSPHORUS 3.3 MG/DL (2.5-4.9)
--- NOTE | 2019-11-21 06:58 | NUR ---
RESPIRATORY NOTE: Received pt on AC 16, 600ml , 40%, no PEEP. Pt is awake, alert and intubated with ETT 7.5 @ 21cm lip line, secured by anchor fast. Vent plugged into red outlet, alarms are set and audible, ambu bag at bedside. Pt in no apparent distress at this time. Will continue to monitor pt.
--- NOTE | 2019-11-21 07:30 | NUR ---
HAND-OFF: Report given to [].
--- NOTE | 2019-11-21 07:31 | NUR ---
NURSE NOTES: Late entry: PT and report received from VENKAT Crawford; received intubated ETT 7.5 @ 21 lip, AC 16, TV 600, 40%, peep 0; saturating at 100% no S/S of respiratory distress noted; received PT on bilateral soft wrist restraints confused combative with staff, reorientated PT everything is okay but remains combative and confused trying to kick staff; GT feeding Glucerna 1.5 @ 50ml/hr no residual noted; groundwater monitoring technician shows SR HR 77; PIV L-hand 20g and R-hand 20g remains intact flushes well; will continue to monitor PT and follow through with plan of care.
[2019-11-21] MEDS: Pantoprazole Inj IVP SCH (08:56)
[2019-11-21] MEDS: Amiodarone 200mg tab PEG SCH (08:56)
[2019-11-21] MEDS: Heparin 5000 units/ml inj SUBQ SCH ×2 (08:57→20:42)
--- NOTE | 2019-11-21 08:59 | NUR ---
RESPIRATORY NOTE: Placed pt on CPAP PS 8-35%-no peep per MD's weaning order. Pt is awake, alert, tolerating well the new settings. VENKAT Chávez at bedside and aware. Will continue to monitor.
--- NOTE | 2019-11-21 10:24 | NUR ---
NURSE NOTES: PT reorientated, remains at times combative, remains on bilateral soft wrist restraints, BP at 99/61 MAP 69, will continue to monitor PT.
--- NOTE | 2019-11-21 10:46 | Pulmonolgy Critical Care Note ---
Critical Care - Asmt/Plan Problems: (1) Acute respiratory failure (2) Influenza A (3) Enterococcal bacteremia (4) Nosocomial pneumonia (5) COPD (chronic obstructive pulmonary disease) (6) Atrial fibrillation (7) Severe anemia (8) Hypothyroidism (9) Psychosis Respiratory: monitor respiratory rate, adjust FIO2, CXR Cardiac: continue pressors, continue to monitor HR/BP Renal: F/U I&O, check electrolytes Infectious Disease: check cultures Gastrointestinal: continue feedings/current rate Endocrine: monitor blood sugar Hematologic: monitor H/H, transfuse if hgb<8.5 Neurologic: PRN Ativan, keep patient comfortable Prophylaxis: Heparin Disposition: keep in ICU Time Spent (Minutes): 40 Notes Reviewed: office director, cardio, renal Discussed with: nurses, consultants, human services case managerweb services manager - Objective Last 24 Hour Vital Signs Date Time Temp Pulse Resp B/P (MAP) Pulse Ox O2 Delivery O2 Flow Rate FiO2 11/21/19 10:00 74 24 99/61 (74) 98 11/21/19 09:00 98.2 70 25 113/64 (80) 100 11/21/19 08:59 70 25 35 11/21/19 08:59 100 11/21/19 08:59 35 11/21/19 08:00 77 18 113/91 (98) 99 11/21/19 08:00 40 11/21/19 08:00 73 11/21/19 08:00 Mechanical Ventilator 11/21/19 07:00 78 18 102/68 (79) 97 11/21/19 06:58 77 16 40 11/21/19 06:30 69 16 11/21/19 06:00 74 18 122/71 (88) 99 11/21/19 05:00 74 18 122/71 (88) 99 11/21/19 04:00 Mechanical Ventilator 11/21/19 04:00 70 11/21/19 04:00 99.0 72 16 108/59 (75) 98 11/21/19 04:00 40 11/21/19 03:06 72 16 40 11/21/19 03:00 77 16 100/70 (80) 98 11/21/19 02:00 77 16 100/70 (80) 98 11/21/19 01:00 98.5 78 16 105/60 (75) 98 4/23/20 00:00 Mechanical Ventilator 11/21/19 00:00 81 11/21/19 00:00 40 11/21/19 00:00 82 17 124/83 (97) 95 11/20/19 23:00 82 17 116/79 (91) 100 11/20/19 22:58 83 19 40 11/20/19 22:00 75 19 118/60 (79) 99 11/20/19 21:00 76 19 108/65 (79) 96 11/20/19 20:46 114/61 11/20/19 20:00 Mechanical Ventilator 11/20/19 20:00 98.2 73 22 114/61 (78) 99 11/20/19 20:00 40 11/20/19 20:00 79 11/20/19 19:16 71 16 40 11/20/19 19:00 70 17 97/57 (70) 96 11/20/19 18:00 71 16 93/58 (70) 99 11/20/19 17:00 98.5 72 17 93/65 (74) 99 11/20/19 16:00 73 11/20/19 16:00 70 14 94/56 (69) 98 11/20/19 16:00 Mechanical Ventilator 11/20/19 16:00 40 11/20/19 15:34 76 18 40 11/20/19 15:00 75 17 93/58 (70) 97 11/20/19 14:00 77 14 94/55 (68) 96 11/20/19 13:00 69 16 101/57 (72) 96 11/20/19 12:00 40 11/20/19 12:00 Mechanical Ventilator 11/20/19 12:00 98.1 60 16 85/58 (67) 99 11/20/19 12:00 60 11/20/19 11:14 60 11/20/19 11:00 58 16 82/54 (63) 99 Status: awake Condition: critical HEENT: atraumatic, normocephalic Lungs: rales, rhonchi Heart: HR/BP stable Abdomen: soft, non-tender Extremities: no C/C/E, edema Decubiti: location Micro: Microbiology Date/Time Source Procedure Growth Status 11/19/19 20:40 Sputum Induced Gram Stain - Final Resulted 11/19/19 20:40 Sputum Culture - Preliminary Yeast Species Resulted Critical Care - Subjective ROS Limited/Unobtainable: Yes Interval Events: BP more stable, awake and comfortable Condition: critical EKG Rhythm: Sinus Rhythm FI02: 35 Vent Support Breath Rate: 16 Vent Support Mode: CPAP Vent Tidal Volume: 600 Sputum Amount: Scant PEEP: 0.0 PIP: 9 Tube Feeding Amount: 50 I&O: Intake and Output 11/20/19 11/21/19 19:00 07:00 Intake Total 605 ml 650 ml Output Total 800 ml 682 ml Balance -195 ml -32 ml Intake Free Water 100 ml IV Total 55 ml Tube Feeding 500 ml 550 ml Other 50 ml Output Urine Total 800 ml 532 ml Stool Total 150 ml CXR: no change ET-Tube: 7.5 ET Position: 21 Labs: Laboratory Tests Test 11/21/19 03:35 White Blood Count 9.4 K/UL (4.8-10.8) Red Blood Count 3.35 M/UL (4.70-6.10) L Hemoglobin 9.8 G/DL (14.2-18.0) L Hematocrit 29.6 % (42.0-52.0) L Mean Corpuscular Volume 88 FL (80-99) Mean Corpuscular Hemoglobin 29.2 PG (27.0-31.0) Mean Corpuscular Hemoglobin Concent 33.0 G/DL (32.0-36.0) Red Cell Distribution Width 20.4 % (11.6-14.8) H Platelet Count 292 K/UL (150-450) Mean Platelet Volume 5.6 FL (6.5-10.1) L Neutrophils (%) (Auto) 59.5 % (45.0-75.0) Lymphocytes (%) (Auto) 23.4 % (20.0-45.0) Monocytes (%) (Auto) 11.5 % (1.0-10.0) H Eosinophils (%) (Auto) 4.1 % (0.0-3.0) H Basophils (%) (Auto) 1.5 % (0.0-2.0) Erythrocyte Sedimentation Rate 74 MM/HR (0-20) H Sodium Level 142 MMOL/L (136-145) Potassium Level 4.4 MMOL/L (3.5-5.1) Chloride Level 107 MMOL/L (98-107) Carbon Dioxide Level 23 MMOL/L (21-32) Anion Gap 12 mmol/L (5-15) Blood Urea Nitrogen 19 mg/dL (7-18) H Creatinine 1.1 MG/DL (0.55-1.30) Estimat Glomerular Filtration Rate > 60 mL/min (>60) Glucose Level 91 MG/DL (74-106) Calcium Level 7.9 MG/DL (8.5-10.1) L Phosphorus Level 3.3 MG/DL (2.5-4.9) Magnesium Level 2.5 MG/DL (1.8-2.4) H Total Bilirubin 0.2 MG/DL (0.2-1.0) Aspartate Amino Transf (AST/SGOT) 65 U/L (15-37) H Alanine Aminotransferase (ALT/SGPT) 85 U/L (12-78) H Alkaline Phosphatase 155 U/L (46-116) H C-Reactive Protein, Quantitative 2.1 mg/dL (0.00-0.90) H Total Protein 6.5 G/DL (6.4-8.2) Albumin 2.3 G/DL (3.4-5.0) L Globulin 4.2 g/dL Albumin/Globulin Ratio 0.5 (1.0-2.7) L Jackie Kaiser MD Nov 21, 2019 10:46
--- NOTE | 2019-11-21 11:30 | Infectious Diseases Prog Note ---
Assessment/Plan Assessment/Plan A: Low grade fever x1, SP Leukocytosis, neutrophil predominant, recurrent; SP -11/10 u/a neg; ucx Neg Bcx neg -11/08 Cdiff neg Septic shock, sp off of pressors PNA- persistent infiltrates, hypoxia- COVID19 neg x2 Influenza A, sp rx 11/17 Influenza sc neg SARS CoV PCR negative x2 (10/29, 11/10) 11/19 CXR: Slightly improved right lung aeration. Otherwise stable findings as described 11/16 CXR: Bilateral interstitial and airspace opacities appear mildly worsened compared to the prior exam, with more confluent opacification seen in the right upper lobe and left lung base. 11/11 CXR: Bilateral diffuse interstitial and airspace infiltrates are unchanged.Stable satisfactory position of endotracheal tube and right jugular port catheter.The heart size is normal. 11/10 sp cx C. tropicalis, ESBL E.coli (S Zosyn, Ertapenem) 11/09 CXR: Persistent basilar predominant interstitial and airspace infiltrates. Edema and infection are again both possibilities. Also consider superimposed malignancy, particularly given infusion ports. CXR: Bilateral mostly nodular mostly interstitial disease, as described. This could represent interstitial pneumonia or edema, among many other possibilities. However, given the nodular appearance and the presence of an infusion catheter the possibility of nodular metastatic disease should also be considered. Unlikely UTI UA 10-15 WBC UCx: NG VRE bacteremia 10/29 BCx: VRE; 10/31 Bcx neg 10/29 TTE: focal AV sclerosis with adequate cusp excursion. thickened MV leaflets with normal excursion. mild mitral annulus and aortic root calcification. normal TV. no MR. mild TR. PV not visualized. QTc 552 Afib COPD Hypothyroid Dyslipidemia HTN DM Anemia CVA G tube, h/o abscess complication head and neck cancer Plan: - Continue Ertapenem #7 (Abx #8/7-10) for ESBL PNA 11/15/19 SP Linezolid #14/14 for VRE bacteremia and Zosyn #2 11/03 Tamiflu #5 11/03 DC amikacin and ertapenem #4 11/01 SP Vanc #3 monitor temp and CBC monitor resp status f/u bcx TTE without severe valve insufficiency and bacteremia low grade. recommend repeating bcx at end of therapy to ensure resolution of bacteremia. If has recurrent fevers, will recommend ILENE. DW RN Thank you for this consult. [facility] Will continue to follow the patient with you. Subjective Allergies: Coded Allergies: No Known Allergies (Unverified , 10/30/19) Subjective afebrile remains intubated; on 40% Fio2 no leukocytosis resolved Objective Vital Signs Last 24 Hour Vital Signs Date Time Temp Pulse Resp B/P (MAP) Pulse Ox O2 Delivery O2 Flow Rate FiO2 11/21/19 11:00 77 21 112/64 (80) 97 11/21/19 10:00 74 24 99/61 (74) 98 11/21/19 09:00 98.2 70 25 113/64 (80) 100 11/21/19 08:59 70 25 35 11/21/19 08:59 100 11/21/19 08:59 35 11/21/19 08:00 77 18 113/91 (98) 99 11/21/19 08:00 40 11/21/19 08:00 73 11/21/19 08:00 Mechanical Ventilator 11/21/19 07:00 78 18 102/68 (79) 97 11/21/19 06:58 77 16 40 11/21/19 06:30 69 16 11/21/19 06:00 74 18 122/71 (88) 99 11/21/19 05:00 74 18 122/71 (88) 99 11/21/19 04:00 Mechanical Ventilator 11/21/19 04:00 70 11/21/19 04:00 99.0 72 16 108/59 (75) 98 11/21/19 04:00 40 11/21/19 03:06 72 16 40 11/21/19 03:00 77 16 100/70 (80) 98 11/21/19 02:00 77 16 100/70 (80) 98 11/21/19 01:00 98.5 78 16 105/60 (75) 98 11/21/19 00:00 Mechanical Ventilator 11/21/19 00:00 81 11/21/19 00:00 40 11/21/19 00:00 82 17 124/83 (97) 95 11/20/19 23:00 82 17 116/79 (91) 100 11/20/19 22:58 83 19 40 11/20/19 22:00 75 19 118/60 (79) 99 11/20/19 21:00 76 19 108/65 (79) 96 11/20/19 20:46 114/61 11/20/19 20:00 Mechanical Ventilator 11/20/19 20:00 98.2 73 22 114/61 (78) 99 11/20/19 20:00 40 11/20/19 20:00 79 11/20/19 19:16 71 16 40 11/20/19 19:00 70 17 97/57 (70) 96 11/20/19 18:00 71 16 93/58 (70) 99 11/20/19 17:00 98.5 72 17 93/65 (74) 99 11/20/19 16:00 73 11/20/19 16:00 70 14 94/56 (69) 98 11/20/19 16:00 Mechanical Ventilator 11/20/19 16:00 40 11/20/19 15:34 76 18 40 11/20/19 15:00 75 17 93/58 (70) 97 11/20/19 14:00 77 14 94/55 (68) 96 11/20/19 13:00 69 16 101/57 (72) 96 11/20/19 12:00 40 11/20/19 12:00 Mechanical Ventilator 11/20/19 12:00 98.1 60 16 85/58 (67) 99 11/20/19 12:00 60 Height (Feet): 6 Height (Inches): 1.00 Weight (Pounds): 165 Objective Gen: NAD. intubated. HEENT: ETT. CV: S1+S2. no rubs or gallop Resp: coarse. regular. equal chest rise. no wheezes Abd: soft. G tube. nondistended. Skin: warm. dry. Neuro: awake. follows simple commands. calm Microbiology Date/Time Source Procedure Growth Status 11/19/19 20:40 Sputum Induced Gram Stain - Final Resulted 11/19/19 20:40 Sputum Culture - Preliminary Yeast Species Resulted Laboratory Tests Test 11/21/19 03:35 White Blood Count 9.4 K/UL (4.8-10.8) Red Blood Count 3.35 M/UL (4.70-6.10) L Hemoglobin 9.8 G/DL (14.2-18.0) L Hematocrit 29.6 % (42.0-52.0) L Mean Corpuscular Volume 88 FL (80-99) Mean Corpuscular Hemoglobin 29.2 PG (27.0-31.0) Mean Corpuscular Hemoglobin Concent 33.0 G/DL (32.0-36.0) Red Cell Distribution Width 20.4 % (11.6-14.8) H Platelet Count 292 K/UL (150-450) Mean Platelet Volume 5.6 FL (6.5-10.1) L Neutrophils (%) (Auto) 59.5 % (45.0-75.0) Lymphocytes (%) (Auto) 23.4 % (20.0-45.0) Monocytes (%) (Auto) 11.5 % (1.0-10.0) H Eosinophils (%) (Auto) 4.1 % (0.0-3.0) H Basophils (%) (Auto) 1.5 % (0.0-2.0) Erythrocyte Sedimentation Rate 74 MM/HR (0-20) H Sodium Level 142 MMOL/L (136-145) Potassium Level 4.4 MMOL/L (3.5-5.1) Chloride Level 107 MMOL/L (98-107) Carbon Dioxide Level 23 MMOL/L (21-32) Anion Gap 12 mmol/L (5-15) Blood Urea Nitrogen 19 mg/dL (7-18) H Creatinine 1.1 MG/DL (0.55-1.30) Estimat Glomerular Filtration Rate > 60 mL/min (>60) Glucose Level 91 MG/DL (74-106) Calcium Level 7.9 MG/DL (8.5-10.1) L Phosphorus Level 3.3 MG/DL (2.5-4.9) Magnesium Level 2.5 MG/DL (1.8-2.4) H Total Bilirubin 0.2 MG/DL (0.2-1.0) Aspartate Amino Transf (AST/SGOT) 65 U/L (15-37) H Alanine Aminotransferase (ALT/SGPT) 85 U/L (12-78) H Alkaline Phosphatase 155 U/L (46-116) H C-Reactive Protein, Quantitative 2.1 mg/dL (0.00-0.90) H Total Protein 6.5 G/DL (6.4-8.2) Albumin 2.3 G/DL (3.4-5.0) L Globulin 4.2 g/dL Albumin/Globulin Ratio 0.5 (1.0-2.7) L Current Medications Medications (Trade) Dose Ordered Sig/Tasha Route PRN Reason Start Time Stop Time Status Last Admin Dose Admin Acetaminophen (Tylenol) 650 mg Q4H PRN ORAL fever 10/30/19 11:15 11/29/19 11:14 11/10/19 19:43 Amiodarone HCl (Cordarone) 100 mg DAILY PEG 11/04/19 09:00 01/29/20 08:59 11/21/19 08:56 Ertapenem 1 gm/ Sodium Chloride 55 ml @ 110 mls/hr Q24H IVPB 11/21/19 15:00 11/26/19 14:59 Heparin Sodium (Porcine) (Heparin 5000 units/ml) 5,000 units EVERY 12 HOURS SUBQ 11/02/19 09:00 12/17/19 08:59 11/21/19 08:57 Levothyroxine Sodium (Synthroid) 50 mcg DAILY@0630 GT 10/31/19 06:30 11/30/19 06:29 11/21/19 05:45 Lorazepam (Ativan 2mg/ml 1ml) 2 mg Q4H PRN IV For Anxiety 11/14/19 21:15 11/21/19 21:14 11/20/19 06:15 Norepinephrine Bitartrate 4 mg/ Dextrose 254 ml @ 0 mls/hr Q24H IV 10/30/19 22:00 11/29/19 21:59 11/01/19 23:54 Ondansetron HCl (Zofran) 4 mg Q6H PRN IVP Nausea & Vomiting 10/30/19 11:15 11/29/19 11:14 11/12/19 23:52 Pantoprazole (Protonix) 40 mg DAILY IVP 10/31/19 09:00 11/30/19 08:59 11/21/19 08:56 Polyethylene Glycol (Miralax) 17 gm DAILYPRN PRN ORAL Constipation 10/30/19 11:15 11/29/19 11:14 Quetiapine Fumarate (SEROqueL) 100 mg Q12HR GT 10/30/19 23:00 12/14/19 22:59 11/21/19 08:56 Daphne Sy M.D. Nov 21, 2019 11:30
[2019-11-21] MEDS: Ertapenem 1 GM in NS 55 ML IVPB SCH (15:03)
--- NOTE | 2019-11-21 15:27 | NUR ---
CASE MANAGEMENT: REVIEW 11/21/2019 SI:Acute respiratory failure. Influenza A (+). T 98.2 HR 70 RR 25 B/P 113/64 SATS 100% ON MECH VENT FIO2 35 LABS: BUN 19 CA 7.9 PHOS 2.5 AST 65 ALT 85 ALP 155 IS:AMIODARONE PEG QD LEVOPHED IV PER PARAMETERS ERTAPENEM IV Q24H ICU PLAN OF CARE: WEANING TRIALS
--- NOTE | 2019-11-21 15:42 | NUR ---
DISCHARGE PLANNING: NOTE FAMILY DISCUSSION TO BE HAD REGARDING PATIENT POC. TELEPHONE # FOR JOSH FOY PROVIDED TO DR EWING. AWAITING RESULTS OF MEETING. JOSH FOY T: [phone] [place] [phone]
--- NOTE | 2019-11-21 16:06 | Internal Med Progress Note ---
Subjective Date of Service: Nov 21, 2019 Physician Name Gallito Turcios Attending Physician Danny Stark MD Current Medications Medications (Trade) Dose Ordered Sig/Tasha Route PRN Reason Start Time Stop Time Status Last Admin Dose Admin Acetaminophen (Tylenol) 650 mg Q4H PRN ORAL fever 10/30/19 11:15 11/29/19 11:14 11/10/19 19:43 Amiodarone HCl (Cordarone) 100 mg DAILY PEG 11/04/19 09:00 01/29/20 08:59 11/21/19 08:56 Ertapenem 1 gm/ Sodium Chloride 55 ml @ 110 mls/hr Q24H IVPB 11/21/19 15:00 11/26/19 14:59 11/21/19 15:03 Heparin Sodium (Porcine) (Heparin 5000 units/ml) 5,000 units EVERY 12 HOURS SUBQ 11/02/19 09:00 12/17/19 08:59 11/21/19 08:57 Levothyroxine Sodium (Synthroid) 50 mcg DAILY@0630 GT 10/31/19 06:30 11/30/19 06:29 11/21/19 05:45 Lorazepam (Ativan 2mg/ml 1ml) 2 mg Q4H PRN IV For Anxiety 11/14/19 21:15 11/21/19 21:14 11/20/19 06:15 Norepinephrine Bitartrate 4 mg/ Dextrose 254 ml @ 0 mls/hr Q24H IV 10/30/19 22:00 11/29/19 21:59 11/01/19 23:54 Ondansetron HCl (Zofran) 4 mg Q6H PRN IVP Nausea & Vomiting 10/30/19 11:15 11/29/19 11:14 11/12/19 23:52 Pantoprazole (Protonix) 40 mg DAILY IVP 10/31/19 09:00 11/30/19 08:59 11/21/19 08:56 Polyethylene Glycol (Miralax) 17 gm DAILYPRN PRN ORAL Constipation 10/30/19 11:15 11/29/19 11:14 Quetiapine Fumarate (SEROqueL) 100 mg Q12HR GT 10/30/19 23:00 12/14/19 22:59 11/21/19 08:56 Allergies: Coded Allergies: No Known Allergies (Unverified , 10/30/19) ROS Limited/Unobtainable: Yes Subjective 73 YO M with history of esophageal cancer admitted with respiratory failure. Now Influenza A positive. Cover for Int Elijah-Dr Stark. ICU. Intubted and sedated. Objective Last Vital Signs Date Time Temp Pulse Resp B/P (MAP) Pulse Ox O2 Delivery O2 Flow Rate FiO2 11/21/19 15:00 74 25 113/70 (84) 99 11/21/19 13:01 35 11/21/19 12:00 98.5 11/21/19 12:00 Mechanical Ventilator Laboratory Tests Test 11/21/19 03:35 White Blood Count 9.4 K/UL (4.8-10.8) Red Blood Count 3.35 M/UL (4.70-6.10) L Hemoglobin 9.8 G/DL (14.2-18.0) L Hematocrit 29.6 % (42.0-52.0) L Mean Corpuscular Volume 88 FL (80-99) Mean Corpuscular Hemoglobin 29.2 PG (27.0-31.0) Mean Corpuscular Hemoglobin Concent 33.0 G/DL (32.0-36.0) Red Cell Distribution Width 20.4 % (11.6-14.8) H Platelet Count 292 K/UL (150-450) Mean Platelet Volume 5.6 FL (6.5-10.1) L Neutrophils (%) (Auto) 59.5 % (45.0-75.0) Lymphocytes (%) (Auto) 23.4 % (20.0-45.0) Monocytes (%) (Auto) 11.5 % (1.0-10.0) H Eosinophils (%) (Auto) 4.1 % (0.0-3.0) H Basophils (%) (Auto) 1.5 % (0.0-2.0) Erythrocyte Sedimentation Rate 74 MM/HR (0-20) H Sodium Level 142 MMOL/L (136-145) Potassium Level 4.4 MMOL/L (3.5-5.1) Chloride Level 107 MMOL/L (98-107) Carbon Dioxide Level 23 MMOL/L (21-32) Anion Gap 12 mmol/L (5-15) Blood Urea Nitrogen 19 mg/dL (7-18) H Creatinine 1.1 MG/DL (0.55-1.30) Estimat Glomerular Filtration Rate > 60 mL/min (>60) Glucose Level 91 MG/DL (74-106) Calcium Level 7.9 MG/DL (8.5-10.1) L Phosphorus Level 3.3 MG/DL (2.5-4.9) Magnesium Level 2.5 MG/DL (1.8-2.4) H Total Bilirubin 0.2 MG/DL (0.2-1.0) Aspartate Amino Transf (AST/SGOT) 65 U/L (15-37) H Alanine Aminotransferase (ALT/SGPT) 85 U/L (12-78) H Alkaline Phosphatase 155 U/L (46-116) H C-Reactive Protein, Quantitative 2.1 mg/dL (0.00-0.90) H Total Protein 6.5 G/DL (6.4-8.2) Albumin 2.3 G/DL (3.4-5.0) L Globulin 4.2 g/dL Albumin/Globulin Ratio 0.5 (1.0-2.7) L Microbiology Date/Time Source Procedure Growth Status 11/19/19 20:40 Sputum Induced Gram Stain - Final Resulted 11/19/19 20:40 Sputum Culture - Preliminary Yeast Species Resulted Intake and Output 11/20/19 11/21/19 19:00 07:00 Intake Total 605 ml 650 ml Output Total 800 ml 682 ml Balance -195 ml -32 ml Intake Free Water 100 ml IV Total 55 ml Tube Feeding 500 ml 550 ml Other 50 ml Output Urine Total 800 ml 532 ml Stool Total 150 ml Objective PHYSICAL EXAMINATION: VITAL SIGNS: Temperature 98.1, respirations 25, pulse 92, blood pressure 95/59. GENERAL: The patient is well-developed, well-nourished male, who is intubated and sedated. HEENT: Eyes, pupils are equal and responsive to light and accommodation. Extraocular movements are intact. NECK: Supple without lymphadenopathy. CHEST: Mech vent; Coarse mechanical breath sounds bilaterally without wheezes or rales. CARDIOVASCULAR: Regular rhythm and rate. S1, S2 are normal without murmurs, rubs, or gallops. ABDOMEN: Soft, nontender, and nondistended. Positive bowel sounds. No evidence of hepatosplenomegaly. Currently, no rebound or guarding noted. EXTREMITIES: Negative for clubbing, cyanosis, or edema. RECTAL/GENITAL: Not performed. NEUROLOGICAL: Unable to assess. Assessment/Plan Assessment/Plan ASSESSMENT: This is a 73-year-old male. 1. Respiratory failure. 2. Pneumonia=ESBL E. Coli. 3. Esophageal cancer. 4. Diabetes type 2. 5. Hypertension. 6. Hypercholesterolemia. 7. Atrial fibrillation. 8. Hypothyroidism. 9. Dysphagia. 10. History of prostate cancer. 11. Sepsis=Enterococcus (VRE) 12. Influenza A positive TREATMENT: 1. Pneumonia/respiratory failure. ESBL E. Coli A Pulmonary consultation has been obtained with Dr. Jackie Kaiser. An Infectious Disease consultation has been obtained with Dr. Sy. We will follow recommendations of Infectious Disease and Pulmonary. COVID 19=neg X2 2. Esophageal cancer. 3. Diabetes type 2. A NovoLog sliding scale has been instituted. 4. Hypertension. The patient is currently hypotensive secondary to sepsis. 5. Hypercholesterolemia. Continue atorvastatin as above. 6. Atrial fibrillation. Continue amiodarone as above. 7. Hypothyroidism. Continue levothyroxine as above. 8. Dysphagia, status post PEG placement. 9. History of prostate cancer. 10. ABX = ertapenem and zosyn; S/P tamiflu Gallito Turcios MD Nov 21, 2019 16:06
--- NOTE | 2019-11-21 19:18 | NUR ---
HAND-OFF: Report and PT given to VENKAT Crawford. VSS, no S/S of respiratory distress.
--- NOTE | 2019-11-21 21:58 | NUR ---
NURSE NOTES: received report from Augustin ROBLEDO
[2019-11-21] MEDS ORDERED: LORazepam Inj 2mg/ml 1ml IV PRN (22:15)
[2019-11-22] VITALS (23 sets, daily range): BP systolic 82–134; BP diastolic 45–82
--- NOTE | 2019-11-22 00:12 | NUR ---
NURSE NOTES: Patient in bed sleeping comfortably. no s/s of acute distress noted. No fever. no s/s of hypo/hyperglycemia. will continue plan of care.
--- NOTE | 2019-11-22 02:00 | NUR ---
NURSE NOTES: Patient in bed sleeping comfortably. no s/s of acute distress noted. No fever. no s/s of hypo/hyperglycemia.contact isolation maintained and observed. will continue plan of care.
--- NOTE | 2019-11-22 04:00 | NUR ---
patient in bed sleeping comfortably. no agitation, no anxiety. turned and repositioned. comfort measure provided. will continue plan of care.
--- NOTE | 2019-11-22 06:00 | NUR ---
NURSE NOTES: Bed bath given tolerated well.
[2019-11-22 06:25] LABS: BASOPHILS % (AUTO) 1.4 % (0.0-2.0); EOSINOPHILS % (AUTO) 4.5 % (0.0-3.0); HEMATOCRIT 30.6 % (42.0-52.0); LYMPHOCYTES % (AUTO) 27.6 % (20.0-45.0); MEAN CORPUSCULAR VOLUME 89 FL (80-99); MONOCYTES % (AUTO) 8.7 % (1.0-10.0); NEUTROPHILS % (AUTO) 57.8 % (45.0-75.0); PLATELET COUNT 286 K/UL (150-450); RED BLOOD COUNT 3.45 M/UL (4.70-6.10); RED CELL DISTRIBUTION WIDTH 20.3 % (11.6-14.8); WHITE BLOOD COUNT 9.1 K/UL (4.8-10.8)
[2019-11-22 06:56] LABS: ALANINE AMINOTRANSFERASE 79 U/L (12-78); ALBUMIN 2.4 G/DL (3.4-5.0); ALBUMIN/GLOBULIN RATIO 0.6 (1.0-2.7); ALKALINE PHOSPHATASE 155 U/L (46-116); ANION GAP 12 mmol/L (5-15); ASPARTATE AMINO TRANSFERASE 64 U/L (15-37); BILIRUBIN,TOTAL 0.2 MG/DL (0.2-1.0); BLOOD UREA NITROGEN 19 mg/dL (7-18); CALCIUM 8.7 MG/DL (8.5-10.1); CARBON DIOXIDE 21 MMOL/L (21-32); CHLORIDE 105 MMOL/L (98-107); PHOSPHORUS 3.6 MG/DL (2.5-4.9); POTASSIUM 4.2 MMOL/L (3.5-5.1); SODIUM 138 MMOL/L (136-145)
--- NOTE | 2019-11-22 07:20 | NUR ---
HAND-OFF: Report given to Sridhar ROBLEDO. Addendum: 11/22/19 at 0735 by BRIDGETTE LEE RN report given to Slime ROBLEDO
--- NOTE | 2019-11-22 07:20 | NUR ---
NURSE NOTES: Report received from Andra Eli RN.Pt resting in bed asleep noted no resp distress orally intubated,ETT7.05,lip 21 connected to Vent settingsa AC16 [id number] Fio2 35% 0 PeeP.
--- NOTE | 2019-11-22 07:25 | NUR ---
NURSE NOTES: Pt sleeping in bed noted no anxiety on bilat soft wrist restraint,GTF Glucerna 1.5 at 50 ml/hr no residual noted,Patel cath draining yellow urine,Rectal tube in placed draining liquid brown stools,skin warm and dry with IV sites x2 intact ,Rt hand and Lt Wrist,SR up x2 HOB elevated ,bed lock in lowest position will continue with plans of care.
--- NOTE | 2019-11-22 08:45 | NUR ---
RD ASSESSMENT & RECOMMENDATIONS SEE CARE ACTIVITY FOR COMPLETE ASSESSMENT DAILY ESTIMATED NEEDS: Needs based on CRITICAL CARE/ 66kg 22-28 kcals/kg 0364-8978 total kcals 1.2-2 g protein/kg 79-132 g total protein 25-30 mL/kg 5834-4599 total fluid mLs NUTRITION DIAGNOSIS: Swallowing difficulty R/T dysphagia as evidenced by PEG dep, s/p oral intubation, pressor support now held. ENTERAL NUTRITION RECOMMENDATIONS: Glucerna 1.5 @ 50ml/hr x 22 hrs (hold 1 hr before and after Synthroid) to provide 1100ml, 1650kcal, 91g prot, 835ml free water * Maintain current TF as tolerated to meet 100% est kcal and pro needs. * HOB over 30 degrees/ water flush per MD * Hold 1 hr before and after Synthroid med. ADDITIONAL RECOMMENDATIONS: * Per SNF: HT=66" UH=178# (as of 10/18) -> rec calibrated bedscale wt w/ added P200 mattress as able * Consider bedside BG testing: h/o DM -> Monitor need for NISS- good BG control at this time * Check lytes daily, replete as needed .
[2019-11-22] MEDS: Amiodarone 200mg tab PEG SCH (09:29)
[2019-11-22] MEDS: Pantoprazole Inj IVP SCH (09:29)
[2019-11-22] MEDS: Heparin 5000 units/ml inj SUBQ SCH (09:31)
--- NOTE | 2019-11-22 09:36 | Diagnostic Imaging Report ---
Indication: There is a right Technique: One view of the chest Comparison: 11/20/2019 Findings: Patient is rotated to the right. Stable satisfactory position of endotracheal tube. Stable bilateral diffuse interstitial disease. Unchanged left basilar irregular opacity. Right port catheter remains. Findings are unchanged Impression: Unchanged, over 2 days, findings as above.
--- NOTE | 2019-11-22 10:00 | NUR ---
NURSE NOTES: Oral care done Oral /ET secretions suctioned freq and PRN.Pulled up turned and repositioned .
--- NOTE | 2019-11-22 11:43 | Pulmonolgy Critical Care Note ---
Critical Care - Asmt/Plan Problems: (1) Acute respiratory failure (2) Influenza A (3) Enterococcal bacteremia (4) Nosocomial pneumonia (5) COPD (chronic obstructive pulmonary disease) (6) Atrial fibrillation (7) Severe anemia (8) Hypothyroidism (9) Psychosis Respiratory: monitor respiratory rate, adjust FIO2, CXR, weaning trial Cardiac: continue to monitor HR/BP Renal: F/U I&O, check electrolytes Infectious Disease: check cultures Gastrointestinal: continue feedings/current rate Endocrine: monitor blood sugar Hematologic: monitor H/H, transfuse if hgb<8.5 Neurologic: PRN Ativan, keep patient comfortable Affect: PRN ativan Prophylaxis: Protonix Disposition: keep in ICU Notes Reviewed: loss mitigation specialist Discussed with: nurses, consultants, correctional counselor/case managerroute delivery manager - Objective Last 24 Hour Vital Signs Date Time Temp Pulse Resp B/P (MAP) Pulse Ox O2 Delivery O2 Flow Rate FiO2 11/22/19 11:06 65 16 102/49 (66) 100 11/22/19 10:00 86 16 101/82 (88) 97 11/22/19 09:00 86 16 123/53 (76) 97 11/22/19 08:35 54 16 35 11/22/19 08:00 35 11/22/19 08:00 97.9 55 16 99/48 (65) 97 11/22/19 08:00 53 11/22/19 08:00 Mechanical Ventilator 11/22/19 07:00 63 18 119/47 (71) 97 11/22/19 07:00 60 16 35 11/22/19 06:30 53 16 11/22/19 06:00 64 13 134/53 (80) 99 11/22/19 05:16 60 16 35 11/22/19 05:00 64 20 124/66 (85) 99 11/22/19 04:07 57 16 99/45 (63) 97 11/22/19 04:00 Mechanical Ventilator 11/22/19 04:00 98.0 58 16 89/57 (68) 97 11/22/19 04:00 35 11/22/19 04:00 59 11/22/19 03:56 58 16 104/60 (75) 97 11/22/19 03:54 58 18 35 11/22/19 03:00 60 16 82/58 (66) 97 11/22/19 02:00 68 16 101/70 (80) 94 11/22/19 01:28 61 18 35 11/22/19 01:00 64 16 107/60 (76) 93 11/22/19 00:00 35 11/22/19 00:00 68 11/22/19 00:00 97.8 64 16 95/65 (75) 96 11/22/19 00:00 Mechanical Ventilator 11/21/19 23:32 74 16 35 11/21/19 23:00 74 16 93/65 (74) 93 11/21/19 22:00 101/70 11/21/19 22:00 80 21 112/60 (77) 97 11/21/19 21:47 83 18 35 11/21/19 21:00 79 22 113/77 (89) 94 11/21/19 20:00 82 20 134/94 (107) 98 11/21/19 20:00 79 11/21/19 20:00 Mechanical Ventilator 11/21/19 20:00 40 11/21/19 20:00 80 11/21/19 19:49 78 19 35 11/21/19 19:00 78 15 109/66 (80) 91 11/21/19 18:00 76 16 104/67 (79) 96 11/21/19 17:00 75 15 113/69 (84) 93 11/21/19 16:39 79 16 35 11/21/19 16:00 98.9 72 22 100/64 (76) 98 11/21/19 16:00 Mechanical Ventilator 11/21/19 16:00 40 11/21/19 16:00 74 11/21/19 15:00 74 25 113/70 (84) 99 11/21/19 15:00 35 11/21/19 14:00 77 22 114/72 (86) 99 11/21/19 13:01 76 25 35 11/21/19 13:00 77 23 111/69 (83) 98 11/21/19 12:00 81 11/21/19 12:00 98.5 76 24 103/62 (76) 100 11/21/19 12:00 35 11/21/19 12:00 Mechanical Ventilator Status: awake Condition: critical, improving Neck: full ROM Lungs: chest wall tender Heart: HR/BP stable Abdomen: soft, non-tender Extremities: edema Micro: Microbiology Date/Time Source Procedure Growth Status 11/19/19 20:40 Sputum Induced Gram Stain - Final Complete 11/19/19 20:40 Sputum Culture - Final Mae Species Complete Critical Care - Subjective ROS Limited/Unobtainable: Yes Condition: critical EKG Rhythm: Sinus Rhythm FI02: 35 Vent Support Breath Rate: 16 Vent Support Mode: AC Vent Tidal Volume: 600 Sputum Amount: Small PEEP: 0.0 PIP: 22 Tube Feeding Amount: 50 I&O: Intake and Output 11/21/19 11/22/19 19:00 07:00 Intake Total 700 ml 800 ml Output Total 750 ml 890 ml Balance -50 ml -90 ml Intake Free Water 250 ml Tube Feeding 600 ml 550 ml Other 100 ml Output Urine Total 750 ml 890 ml # Bowel Movements 100 ET-Tube: 7.5 ET Position: 21 Labs: Laboratory Tests Test 11/22/19 03:36 11/22/19 08:48 White Blood Count 9.1 K/UL (4.8-10.8) Red Blood Count 3.45 M/UL (4.70-6.10) L Hemoglobin 10.0 G/DL (14.2-18.0) L Hematocrit 30.6 % (42.0-52.0) L Mean Corpuscular Volume 89 FL (80-99) Mean Corpuscular Hemoglobin 29.0 PG (27.0-31.0) Mean Corpuscular Hemoglobin Concent 32.7 G/DL (32.0-36.0) Red Cell Distribution Width 20.3 % (11.6-14.8) H Platelet Count 286 K/UL (150-450) Mean Platelet Volume 5.4 FL (6.5-10.1) L Neutrophils (%) (Auto) 57.8 % (45.0-75.0) Lymphocytes (%) (Auto) 27.6 % (20.0-45.0) Monocytes (%) (Auto) 8.7 % (1.0-10.0) Eosinophils (%) (Auto) 4.5 % (0.0-3.0) H Basophils (%) (Auto) 1.4 % (0.0-2.0) Sodium Level 138 MMOL/L (136-145) Potassium Level 4.2 MMOL/L (3.5-5.1) Chloride Level 105 MMOL/L (98-107) Carbon Dioxide Level 21 MMOL/L (21-32) Anion Gap 12 mmol/L (5-15) Blood Urea Nitrogen 19 mg/dL (7-18) H Creatinine 1.0 MG/DL (0.55-1.30) Estimat Glomerular Filtration Rate > 60 mL/min (>60) Glucose Level 77 MG/DL (74-106) Calcium Level 8.7 MG/DL (8.5-10.1) Phosphorus Level 3.6 MG/DL (2.5-4.9) Magnesium Level 2.5 MG/DL (1.8-2.4) H Total Bilirubin 0.2 MG/DL (0.2-1.0) Aspartate Amino Transf (AST/SGOT) 64 U/L (15-37) H Alanine Aminotransferase (ALT/SGPT) 79 U/L (12-78) H Alkaline Phosphatase 155 U/L (46-116) H Total Protein 6.6 G/DL (6.4-8.2) Albumin 2.4 G/DL (3.4-5.0) L Globulin 4.2 g/dL Albumin/Globulin Ratio 0.6 (1.0-2.7) L Arterial Blood pH 7.565 (7.350-7.450) Arterial Blood Partial Pressure CO2 20.6 mmHg (35.0-45.0) *L Arterial Blood Partial Pressure O2 109.3 mmHg (75.0-100.0) H Arterial Blood HCO3 18.2 mmol/L (22.0-26.0) L Arterial Blood Oxygen Saturation 97.3 % (95-100) Arterial Blood Base Excess -2.4 (-2-2) L Ty Test Positive Jackie Kaiser MD Nov 22, 2019 11:43
--- NOTE | 2019-11-22 11:45 | Infectious Diseases Prog Note ---
Assessment/Plan Assessment/Plan A: Low grade fever x1, SP Leukocytosis, neutrophil predominant, recurrent; SP -11/10 u/a neg; ucx Neg Bcx neg -11/08 Cdiff neg Septic shock, sp off of pressors PNA- persistent infiltrates, hypoxia- COVID19 neg x2 Influenza A, sp rx 11/17 Influenza sc neg SARS CoV PCR negative x2 (10/29, 11/10) 11/19 CXR: Slightly improved right lung aeration. Otherwise stable findings as described 11/16 CXR: Bilateral interstitial and airspace opacities appear mildly worsened compared to the prior exam, with more confluent opacification seen in the right upper lobe and left lung base. 11/11 CXR: Bilateral diffuse interstitial and airspace infiltrates are unchanged.Stable satisfactory position of endotracheal tube and right jugular port catheter.The heart size is normal. 11/10 sp cx C. tropicalis, ESBL E.coli (S Zosyn, Ertapenem) 11/09 CXR: Persistent basilar predominant interstitial and airspace infiltrates. Edema and infection are again both possibilities. Also consider superimposed malignancy, particularly given infusion ports. CXR: Bilateral mostly nodular mostly interstitial disease, as described. This could represent interstitial pneumonia or edema, among many other possibilities. However, given the nodular appearance and the presence of an infusion catheter the possibility of nodular metastatic disease should also be considered. Unlikely UTI UA 10-15 WBC UCx: NG VRE bacteremia 10/29 BCx: VRE; 10/31 Bcx neg 10/29 TTE: focal AV sclerosis with adequate cusp excursion. thickened MV leaflets with normal excursion. mild mitral annulus and aortic root calcification. normal TV. no MR. mild TR. PV not visualized. QTc 552 Afib COPD Hypothyroid Dyslipidemia HTN DM Anemia CVA G tube, h/o abscess complication head and neck cancer Plan: - Continue Ertapenem #8 (Abx #9/10) for ESBL PNA 11/15/19 SP Linezolid #14/14 for VRE bacteremia and Zosyn #2 11/03 Tamiflu #5 11/03 DC amikacin and ertapenem #4 11/01 SP Vanc #3 monitor temp and CBC monitor resp status f/u bcx TTE without severe valve insufficiency and bacteremia low grade. recommend repeating bcx at end of therapy to ensure resolution of bacteremia. If has recurrent fevers, will recommend ILENE. WENDI RN Thank you for this consult. [facility] Will continue to follow the patient with you. Subjective Allergies: Coded Allergies: No Known Allergies (Unverified , 10/30/19) Subjective afebrile remains intubated; on 40% Fio2 no leukocytosis Objective Vital Signs Last 24 Hour Vital Signs Date Time Temp Pulse Resp B/P (MAP) Pulse Ox O2 Delivery O2 Flow Rate FiO2 11/22/19 11:06 65 16 102/49 (66) 100 11/22/19 10:00 86 16 101/82 (88) 97 11/22/19 09:00 86 16 123/53 (76) 97 11/22/19 08:35 54 16 35 11/22/19 08:00 35 11/22/19 08:00 97.9 55 16 99/48 (65) 97 11/22/19 08:00 53 11/22/19 08:00 Mechanical Ventilator 11/22/19 07:00 63 18 119/47 (71) 97 11/22/19 07:00 60 16 35 11/22/19 06:30 53 16 11/22/19 06:00 64 13 134/53 (80) 99 11/22/19 05:16 60 16 35 11/22/19 05:00 64 20 124/66 (85) 99 11/22/19 04:07 57 16 99/45 (63) 97 11/22/19 04:00 Mechanical Ventilator 11/22/19 04:00 98.0 58 16 89/57 (68) 97 11/22/19 04:00 35 11/22/19 04:00 59 11/22/19 03:56 58 16 104/60 (75) 97 11/22/19 03:54 58 18 35 11/22/19 03:00 60 16 82/58 (66) 97 11/22/19 02:00 68 16 101/70 (80) 94 11/22/19 01:28 61 18 35 11/22/19 01:00 64 16 107/60 (76) 93 11/22/19 00:00 35 11/22/19 00:00 68 11/22/19 00:00 97.8 64 16 95/65 (75) 96 11/22/19 00:00 Mechanical Ventilator 11/21/19 23:32 74 16 35 11/21/19 23:00 74 16 93/65 (74) 93 11/21/19 22:00 101/70 11/21/19 22:00 80 21 112/60 (77) 97 11/21/19 21:47 83 18 35 11/21/19 21:00 79 22 113/77 (89) 94 11/21/19 20:00 82 20 134/94 (107) 98 11/21/19 20:00 79 11/21/19 20:00 Mechanical Ventilator 11/21/19 20:00 40 11/21/19 20:00 80 11/21/19 19:49 78 19 35 11/21/19 19:00 78 15 109/66 (80) 91 11/21/19 18:00 76 16 104/67 (79) 96 11/21/19 17:00 75 15 113/69 (84) 93 11/21/19 16:39 79 16 35 11/21/19 16:00 98.9 72 22 100/64 (76) 98 11/21/19 16:00 Mechanical Ventilator 11/21/19 16:00 40 11/21/19 16:00 74 11/21/19 15:00 74 25 113/70 (84) 99 11/21/19 15:00 35 11/21/19 14:00 77 22 114/72 (86) 99 11/21/19 13:01 76 25 35 11/21/19 13:00 77 23 111/69 (83) 98 11/21/19 12:00 81 11/21/19 12:00 98.5 76 24 103/62 (76) 100 11/21/19 12:00 35 11/21/19 12:00 Mechanical Ventilator Height (Feet): 6 Height (Inches): 1.00 Weight (Pounds): 162 Objective Gen: NAD. intubated. HEENT: ETT. CV: S1+S2. no rubs or gallop Resp: coarse. regular. equal chest rise. no wheezes Abd: soft. G tube. nondistended. Skin: warm. dry. Neuro: awake. follows simple commands. calm Microbiology Date/Time Source Procedure Growth Status 11/19/19 20:40 Sputum Induced Gram Stain - Final Complete 11/19/19 20:40 Sputum Culture - Final Mae Species Complete Laboratory Tests Test 11/22/19 03:36 11/22/19 08:48 White Blood Count 9.1 K/UL (4.8-10.8) Red Blood Count 3.45 M/UL (4.70-6.10) L Hemoglobin 10.0 G/DL (14.2-18.0) L Hematocrit 30.6 % (42.0-52.0) L Mean Corpuscular Volume 89 FL (80-99) Mean Corpuscular Hemoglobin 29.0 PG (27.0-31.0) Mean Corpuscular Hemoglobin Concent 32.7 G/DL (32.0-36.0) Red Cell Distribution Width 20.3 % (11.6-14.8) H Platelet Count 286 K/UL (150-450) Mean Platelet Volume 5.4 FL (6.5-10.1) L Neutrophils (%) (Auto) 57.8 % (45.0-75.0) Lymphocytes (%) (Auto) 27.6 % (20.0-45.0) Monocytes (%) (Auto) 8.7 % (1.0-10.0) Eosinophils (%) (Auto) 4.5 % (0.0-3.0) H Basophils (%) (Auto) 1.4 % (0.0-2.0) Sodium Level 138 MMOL/L (136-145) Potassium Level 4.2 MMOL/L (3.5-5.1) Chloride Level 105 MMOL/L (98-107) Carbon Dioxide Level 21 MMOL/L (21-32) Anion Gap 12 mmol/L (5-15) Blood Urea Nitrogen 19 mg/dL (7-18) H Creatinine 1.0 MG/DL (0.55-1.30) Estimat Glomerular Filtration Rate > 60 mL/min (>60) Glucose Level 77 MG/DL (74-106) Calcium Level 8.7 MG/DL (8.5-10.1) Phosphorus Level 3.6 MG/DL (2.5-4.9) Magnesium Level 2.5 MG/DL (1.8-2.4) H Total Bilirubin 0.2 MG/DL (0.2-1.0) Aspartate Amino Transf (AST/SGOT) 64 U/L (15-37) H Alanine Aminotransferase (ALT/SGPT) 79 U/L (12-78) H Alkaline Phosphatase 155 U/L (46-116) H Total Protein 6.6 G/DL (6.4-8.2) Albumin 2.4 G/DL (3.4-5.0) L Globulin 4.2 g/dL Albumin/Globulin Ratio 0.6 (1.0-2.7) L Arterial Blood pH 7.565 (7.350-7.450) Arterial Blood Partial Pressure CO2 20.6 mmHg (35.0-45.0) *L Arterial Blood Partial Pressure O2 109.3 mmHg (75.0-100.0) H Arterial Blood HCO3 18.2 mmol/L (22.0-26.0) L Arterial Blood Oxygen Saturation 97.3 % (95-100) Arterial Blood Base Excess -2.4 (-2-2) L Ty Test Positive Current Medications Medications (Trade) Dose Ordered Sig/Tasha Route PRN Reason Start Time Stop Time Status Last Admin Dose Admin Acetaminophen (Tylenol) 650 mg Q4H PRN ORAL fever 10/30/19 11:15 11/29/19 11:14 11/10/19 19:43 Amiodarone HCl (Cordarone) 100 mg DAILY PEG 11/04/19 09:00 01/29/20 08:59 11/22/19 09:29 Ertapenem 1 gm/ Sodium Chloride 55 ml @ 110 mls/hr Q24H IVPB 11/21/19 15:00 11/26/19 14:59 11/21/19 15:03 Heparin Sodium (Porcine) (Heparin 5000 units/ml) 5,000 units EVERY 12 HOURS SUBQ 11/02/19 09:00 12/17/19 08:59 11/22/19 09:31 Levothyroxine Sodium (Synthroid) 50 mcg DAILY@0630 GT 10/31/19 06:30 11/30/19 06:29 11/22/19 05:51 Lorazepam (Ativan 2mg/ml 1ml) 2 mg Q4H PRN IV For Anxiety 11/21/19 22:15 11/28/19 22:14 11/21/19 22:35 Norepinephrine Bitartrate 4 mg/ Dextrose 254 ml @ 0 mls/hr Q24H IV 10/30/19 22:00 11/29/19 21:59 11/01/19 23:54 Ondansetron HCl (Zofran) 4 mg Q6H PRN IVP Nausea & Vomiting 10/30/19 11:15 11/29/19 11:14 11/12/19 23:52 Pantoprazole (Protonix) 40 mg DAILY IVP 10/31/19 09:00 11/30/19 08:59 11/22/19 09:29 Polyethylene Glycol (Miralax) 17 gm DAILYPRN PRN ORAL Constipation 10/30/19 11:15 11/29/19 11:14 Quetiapine Fumarate (SEROqueL) 100 mg Q12HR GT 10/30/19 23:00 12/14/19 22:59 11/22/19 09:29 Daphne Sy M.D. Nov 22, 2019 11:45
--- NOTE | 2019-11-22 12:53 | NUR ---
RADIOLOGY DEPT., CHEST X-RAY DONE.-P.DYE
--- NOTE | 2019-11-22 13:40 | NUR ---
DISCHARGE PLANNING: NOTE 0956- MESSAGE LEFT FOR DR EWING REGARDING FAMILY MEETING. DR ROMERO CALL FAMILY AFTER ROUNDS 1341- F/U MESSAGE LEFT FOR DR EWING. CALL RECEIVED FROM ANITA AT [facility] IS STILL AVAILABLE. ANITA [phone] JOSH FOY T: [phone] [place] [phone]
--- NOTE | 2019-11-22 13:42 | NUR ---
CASE MANAGEMENT: REVIEW 11/22/2019 SI:Acute respiratory failure. Influenza A (+). T 98.1 HR 57 RR 16 B/P 100/52 SATS 98% ON MECH VENT FIO2 35 LABS: BUN 19 MG 2.5 AST 64 ALT 79 ALP 155 ABGs PH 7.565 PCO2 20.6 PO2 109.3 HCO3 18.2 BE -2.4 IS:AMIODARONE PEG QD LEVOPHED IV PER PARAMETERS ERTAPENEM IV Q24H ICU PLAN OF CARE: WEANING TRIALS
--- NOTE | 2019-11-22 14:00 | NUR ---
NURSE NOTES: Dr Stark at bedside,updated re pt's status.
--- NOTE | 2019-11-22 14:09 | Internal Med Progress Note ---
Subjective Physician Name Danny Stark Attending Physician Danny Stark MD Current Medications Medications (Trade) Dose Ordered Sig/Tasha Route PRN Reason Start Time Stop Time Status Last Admin Dose Admin Acetaminophen (Tylenol) 650 mg Q4H PRN ORAL fever 10/30/19 11:15 11/29/19 11:14 11/10/19 19:43 Amiodarone HCl (Cordarone) 100 mg DAILY PEG 11/04/19 09:00 01/29/20 08:59 11/22/19 09:29 Ertapenem 1 gm/ Sodium Chloride 55 ml @ 110 mls/hr Q24H IVPB 11/21/19 15:00 11/26/19 14:59 11/21/19 15:03 Heparin Sodium (Porcine) (Heparin 5000 units/ml) 5,000 units EVERY 12 HOURS SUBQ 11/02/19 09:00 12/17/19 08:59 11/22/19 09:31 Levothyroxine Sodium (Synthroid) 50 mcg DAILY@0630 GT 10/31/19 06:30 11/30/19 06:29 11/22/19 05:51 Lorazepam (Ativan 2mg/ml 1ml) 2 mg Q4H PRN IV For Anxiety 11/21/19 22:15 11/28/19 22:14 11/21/19 22:35 Norepinephrine Bitartrate 4 mg/ Dextrose 254 ml @ 0 mls/hr Q24H IV 10/30/19 22:00 11/29/19 21:59 11/01/19 23:54 Ondansetron HCl (Zofran) 4 mg Q6H PRN IVP Nausea & Vomiting 10/30/19 11:15 11/29/19 11:14 11/12/19 23:52 Pantoprazole (Protonix) 40 mg DAILY IVP 10/31/19 09:00 11/30/19 08:59 11/22/19 09:29 Polyethylene Glycol (Miralax) 17 gm DAILYPRN PRN ORAL Constipation 10/30/19 11:15 11/29/19 11:14 Quetiapine Fumarate (SEROqueL) 100 mg Q12HR GT 10/30/19 23:00 12/14/19 22:59 11/22/19 09:29 Allergies: Coded Allergies: No Known Allergies (Unverified , 10/30/19) Subjective intubated, awake, responsive, on vent in ICU. Objective Last Vital Signs Date Time Temp Pulse Resp B/P (MAP) Pulse Ox O2 Delivery O2 Flow Rate FiO2 11/22/19 13:16 57 16 35 11/22/19 12:00 Mechanical Ventilator 11/22/19 12:00 98.1 100/52 (68) 98 Laboratory Tests Test 11/22/19 03:36 11/22/19 08:48 White Blood Count 9.1 K/UL (4.8-10.8) Red Blood Count 3.45 M/UL (4.70-6.10) L Hemoglobin 10.0 G/DL (14.2-18.0) L Hematocrit 30.6 % (42.0-52.0) L Mean Corpuscular Volume 89 FL (80-99) Mean Corpuscular Hemoglobin 29.0 PG (27.0-31.0) Mean Corpuscular Hemoglobin Concent 32.7 G/DL (32.0-36.0) Red Cell Distribution Width 20.3 % (11.6-14.8) H Platelet Count 286 K/UL (150-450) Mean Platelet Volume 5.4 FL (6.5-10.1) L Neutrophils (%) (Auto) 57.8 % (45.0-75.0) Lymphocytes (%) (Auto) 27.6 % (20.0-45.0) Monocytes (%) (Auto) 8.7 % (1.0-10.0) Eosinophils (%) (Auto) 4.5 % (0.0-3.0) H Basophils (%) (Auto) 1.4 % (0.0-2.0) Sodium Level 138 MMOL/L (136-145) Potassium Level 4.2 MMOL/L (3.5-5.1) Chloride Level 105 MMOL/L (98-107) Carbon Dioxide Level 21 MMOL/L (21-32) Anion Gap 12 mmol/L (5-15) Blood Urea Nitrogen 19 mg/dL (7-18) H Creatinine 1.0 MG/DL (0.55-1.30) Estimat Glomerular Filtration Rate > 60 mL/min (>60) Glucose Level 77 MG/DL (74-106) Calcium Level 8.7 MG/DL (8.5-10.1) Phosphorus Level 3.6 MG/DL (2.5-4.9) Magnesium Level 2.5 MG/DL (1.8-2.4) H Total Bilirubin 0.2 MG/DL (0.2-1.0) Aspartate Amino Transf (AST/SGOT) 64 U/L (15-37) H Alanine Aminotransferase (ALT/SGPT) 79 U/L (12-78) H Alkaline Phosphatase 155 U/L (46-116) H Total Protein 6.6 G/DL (6.4-8.2) Albumin 2.4 G/DL (3.4-5.0) L Globulin 4.2 g/dL Albumin/Globulin Ratio 0.6 (1.0-2.7) L Arterial Blood pH 7.565 (7.350-7.450) Arterial Blood Partial Pressure CO2 20.6 mmHg (35.0-45.0) *L Arterial Blood Partial Pressure O2 109.3 mmHg (75.0-100.0) H Arterial Blood HCO3 18.2 mmol/L (22.0-26.0) L Arterial Blood Oxygen Saturation 97.3 % (95-100) Arterial Blood Base Excess -2.4 (-2-2) L Ty Test Positive Microbiology Date/Time Source Procedure Growth Status 11/19/19 20:40 Sputum Induced Gram Stain - Final Complete 11/19/19 20:40 Sputum Culture - Final Mae Species Complete Intake and Output 11/21/19 11/22/19 19:00 07:00 Intake Total 700 ml 800 ml Output Total 750 ml 890 ml Balance -50 ml -90 ml Intake Free Water 250 ml Tube Feeding 600 ml 550 ml Other 100 ml Output Urine Total 750 ml 890 ml # Bowel Movements 100 Objective General: intubated, awake, responsive. HEENT: NCAT, sclera anicteric, PERRL, EOMI, ET tube. Neck: Supple, no significant jugular venous distention, Lungs: Mechanical breath sound, decrease air at bases, no Wheeze or Rales. Heart: Regular rate and rhythm, normal S1/S2, no murmurs. Abdomen: soft, nontender, nondistended. Normoactive bowel sound, + PEG, Extremities: No Cyanosis , clubbing or edema. Neuro: A&O x 2, Able to move all extremities Skin: warm, no rash. Assessment/Plan Status Narrative 1. Acute Hypoxemic Respiratory failure. 2. Pneumonia. 3. Esophageal cancer. 4. Diabetes type 2. 5. Hypertension. 6. Hypercholesterolemia. 7. Atrial fibrillation. 8. Hypothyroidism. 9. Dysphagia. 10. History of prostate cancer. 11. Influenza A positive. 12. Septic shock. 13. Acute UTI. 14. VRE Bacteremia. TREATMENT: 1. Pneumonia/respiratory failure. A Pulmonary consultation has been obtained with Dr. Jackie Kaiser. An Infectious Disease consultation has been obtained with Dr. Martinez. We will follow recommendations of Infectious Disease and Pulmonary. A sputum culture is pending. 2. Esophageal cancer. 3. Diabetes type 2. A NovoLog sliding scale has been instituted. 4. Hypertension. The patient is currently hypotensive and probable sepsis. 5. Hypercholesterolemia. Continue atorvastatin as above. 6. Atrial fibrillation. Continue amiodarone as above. 7. Hypothyroidism. Continue levothyroxine as above. 8. Dysphagia, status post PEG placement. 9. History of prostate cancer. Tolerated Tube feeding @ 50 cc/hr COVID 19 test negative X 2, Abx: Ertapenem IV DVT Prophylaxis: Heparin SQ F/U with labs and cultures. On Ertapenem for ESBL PNA Transfer to [facility]. Danny Stark MD Nov 22, 2019 14:09
--- NOTE | 2019-11-22 15:20 | NUR ---
NURSE NOTES: Dr Stark called to discharge pt to [facility].will inform case management to facilitate transfer.
--- NOTE | 2019-11-22 16:12 | NUR ---
DISCHARGE DISPOSITION: PLEASE READ PATIENT TO BE TRANSFERRED TO [facility] [address] [facility] ROOM ICU 4 T: [phone]>>> CALL FOR REPORT [place] W/ RT, NURSING, AND MONITOR ETA 1930 CM S/W [facility]APOOR [phone] WHO AGREES TO TRANSFER. ADDRESS AND TELEPHONE TO NEW FACILITY PROVIDED TO SAMARA.
[2019-11-22] MEDS: Ertapenem 1 GM in NS 55 ML IVPB SCH (18:27)
--- NOTE | 2019-11-22 18:30 | NUR ---
NURSE NOTES: Tried to give report to [facility] thru am Airport Guide Nishi Sadler but refused to take the call,said to call report at 1930 to the dynamometer mechanic.Called family member ,spoke with son William Bhatia,informed re pt's discharge to [facility]
--- NOTE | 2019-11-22 19:28 | NUR ---
HAND-OFF: Report given to Andra Eli RN..
--- NOTE | 2019-11-22 19:43 | NUR ---
NURSE NOTES: Report given to Kadeem Cabral RN at [facility].
--- NOTE | 2019-11-22 20:30 | NUR ---
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 Report and paper work given to Julius ROBLEDO. Patient in stable condition. no s/s of acute distress noted. Orally intubated satting 96-98%. Spoke with Kadeem Sanchez RN to keep the Right hand IV #20, rectal tube and Patel. Family aware of transfer. Patient no belongings list. V/S stable. D/C restraint. endorsed plan of care. Addendum: 11/22/19 at 2036 by BRIDGETTE LEE RN Gt intact no residual. skin intact. no fever.
--- NOTE | 2019-11-23 18:40 | Discharge Summary ---
Discharge Summary Discharge Summary _ DATE OF ADMISSION: 10/30/2019 DATE OF DISCHARGE: 11/22/2019 DISCHARGED BY: Dr. Stark REASON FOR ADMISSION: 74 years old male, resident of retirement facility, with past medical history of diabetes mellitus, hypothyroidism, atrial fibrillation, esophageal and prostate cancer, presented to emergency department with difficulty breathing. Patietn was sent for respiratory distress. Patient recently was treated for strep pneumonia. Patient noted to be markedly tachypneic and had increased work of breathing . Paramedics put him on 100% nonrebreathing mask. Upon evaluation patient was tachycardic ,tachypneic ,hypoxic, and hypotensive; pulse oximetry on 100% nonrebreathing mask was only 74%. Patient was urgently intubated in the emergency department. Chest x-ray confirmed satisfactory placement of endotracheal tube. It also revealed bilateral nodular interstitial opacities. Laboratory work-up demonstrated significant leukocytosis WBC 41.8, hemoglobin 10.8, hematocrit 33.8, platelet count 449. Potassium 5.1. BUN 25, creatinine 1.4. Glucose 114. Lactic acid 4.5. Troponin negative, pro BNP 1761. EKG revealed sinus tachycardia , no acute ischemic changes. Urinalysis revealed pyuria ,+3 protein ,+1 leukocyte esterase and moderate bacteria. Patient also undergone placement of triple-lumen central line in anticipation of possible pressors. In emergency department patient received fluid bolus, pancultured , started on empiric antibiotics and admitted to ICU for further management. CONSULTANTS: extension service agent Dr. Slade pulmonary Dr. [place] specialist Dr. Sy [facility] COURSE: Patient made to ICU. Ventilator support and pulmonary toilet provided. Patient was followed -up with ABG and chest x-ray. Settings titrated based on ABG results. Patient initially started on pressors for hemodynamic support, which titrated to keep mean arterial blood pressure above 65. Patient subsequently was able to be weaned off pressors. Patient i started on empiric antibiotic . Blood culture revealed VRE. Patient completed treatment with Zyvox for 2 weeks. Urine culture was negative. Repeated blood cultures were negative . Sputum culture revealed E. coli ESBL. SARS-CoV-2 by PCR on 10/29 and 11.08 came back non-detected. Influenza swab test was positive for influenza A. Patient received treatment with Tamiflu for 5 days. Echocardiogram revealed preserved ejection fraction of 65% with no evidence of vegetation. DVT and GI prophylaxis provided. Renal parameters and electrolytes were closely monitored, electrolytes corrected as needed, nephrotoxins were avoided. Acute kidney injury resolved with IV hydration. BUN from 25 down to 19 and creatinine from 1.4 down to 1.0. Hemoglobin and hematocrit were closely monitored with goal to keep hemoglobin above 7. Patient undergone transfusion of 1 unit of packed red blood cells while in the hospital. Prior to discharge hemoglobin 10, hematocrit 30.6. Patient started on weaning protocol. Patient was unable to be weaned. LFT trending down. AST from 195 down to 64 and ALT from 165 down to 79. Supportive care provided. Patient subsequently was transferred to [facility] for continuation of care. Patient will need to continue antibiotic for ESBL pneumonia to complete the course of treatment. FINAL DIAGNOSES: Acute respiratory failure requiring intubation Septic shock Sepsis with VRE bacteremia Pneumonia with E. coli ESBL Suspected COVID 19 infection -ruled out Influenza A Acute kidney injury - resolved Paroxysmal atrial fibrillation COPD Esophageal cancer History of prostate cancer Anemia Transaminitis DISCHARGE MEDICATIONS: List of medication was sent to accepting facility DISCHARGE INSTRUCTIONS: Patient was discharged to [facility] for further management. Ana Flores NP Nov 23, 2019 18:40
== END 2019-11-22 20:30 | DRG 870 ==
LOC: EDBD 08:32 → EMR 08:53 → ICU 10:25 → EDBEDREQ 16:46
PROC: 5A1955Z Respiratory Ventilation, Greater than 96 Consecutive Hours (ICD-10-PCS; principal; 2019-10-30)
PROC: 0BH17EZ Insertion of Endotracheal Airway into Trachea, Via Natural or Artificial Opening (ICD-10-PCS; principal; 2019-10-30)
DX: A41.81 Sepsis due to Enterococcus (principal); R65.21 Severe sepsis with septic shock; J96.00 Acute respiratory failure, unspecified whether with hypoxia or hypercapnia; J10.08 Influenza due to other identified influenza virus with other specified pneumonia; J15.5 Pneumonia due to Escherichia coli; J44.0 Chronic obstructive pulmonary disease with (acute) lower respiratory infection; D68.9 Coagulation defect, unspecified; N17.9 Acute kidney failure, unspecified; E11.9 Type 2 diabetes mellitus without complications; I48.0 Paroxysmal atrial fibrillation; E03.9 Hypothyroidism, unspecified; E78.00 Pure hypercholesterolemia, unspecified; C32.9 Malignant neoplasm of larynx, unspecified; Z85.46 Personal history of malignant neoplasm of prostate; R13.10 Dysphagia, unspecified; Z93.1 Gastrostomy status; F29 Unspecified psychosis not due to a substance or known physiological condition; Z20.828 Contact with and (suspected) exposure to other viral communicable diseases; Y95 Nosocomial condition
CPT/HCPCS: 31500; 36415; 36600; 71045; 80048; 80053; 80150; 80202; 81003; 82248; 82270; 82378; 82550; 82553; 82607; 82746; 82803; 83540; 83550; 83605; 83615; 83735; 83880; 84100; 84153; 84154; 84484; 85007; 85025; 85044; 85060; 85610; 85651; 85730; 86140; 86710; 86850; 86900; 86901; 86920; 87040; 87070; 87081; 87086; 87181; 87205; 87324; 87635; 93005; 93306; 94002; 94003; 94664; 96365; 96366; 96368; 99291; J2405; J7030